=== PATIENT | female | born 1940 | race Caucasian/White ===

== ENCOUNTER 2019-05-01 09:48 | Inpatient (IN) | payer MEDICARE, MEDICAID ==
[~2019-05-01] VITALS: Ht 170.2 cm; Wt 54.4 kg
[2019-05-01] VITALS (47 sets, daily range): BP systolic 2–120; BP diastolic 30–96
--- NOTE | 2019-05-01 09:48 | NUR ---
ED Nurse Note: pt arrives with audible rhonchi and dyspnea with tachypnea noted with aloc from [facility] via lafd. pt is full code at this time. pt nonresponsive to tactile stimuli. at bs resp therapist at bedside. pt with decreased bibasilar with rhonchi. pt suctioned by RT with copious sputum noted. pt arrives with kwon in place and gt in place.
--- NOTE | 2019-05-01 10:00 | NUR ---
RESPIRATORY NOTE: Override medications Albuterol 5mg and Atro 500mcg Q15. Daysi DUNN notified. Addendum: 05/01/19 at 1057 by ROYAL DEWEY RT Per Dr. Larios's orders Q15 tx
[2019-05-01] MEDS ORDERED: Piperacillin/Tazobactam 3.375 GM in NS 110 ML IVPB ONE (10:15)
[2019-05-01] MEDS ORDERED: Vancomycin 1 GM in NS 275 ML IV ONE (10:15)
--- NOTE | 2019-05-01 10:19 | NUR ---
ED Nurse Note: md aware of rectal temp. resp obtaining ABG
--- NOTE | 2019-05-01 10:21 | NUR ---
ED Nurse Note: pt prepared for ett placement by .
[2019-05-01 10:24] LABS: APPEARANCE,URINE CLOUDY; BILIRUBIN, URINE NEGATIVE (NEGATIVE); GLUCOSE, URINE (UA) NEGATIVE (NEGATIVE); HEMATOCRIT 36.4 % (37.0-47.0); HEMOGLOBIN 11.5 G/DL (12.0-16.0); KETONES,URINE NEGATIVE (NEGATIVE); LEUKOCYTE ESTERASE ,URINE 3+ (NEGATIVE); MEAN CORPUSCULAR VOLUME 92 FL (80-99); NITRITE,URINE NEGATIVE (NEGATIVE); PH,URINE 5 (4.5-8.0); PLATELET COUNT 164 K/UL (150-450); PROTEIN,URINE 3+ (NEGATIVE); RED BLOOD COUNT 3.95 M/UL (4.20-5.40); RED CELL DISTRIBUTION WIDTH 16.3 % (11.6-14.8); UROBILINOGEN,URINE 1 MG/DL (0.0-1.0)
[2019-05-01 10:26] LABS: COLOR,URINE YELLOW
--- NOTE | 2019-05-01 10:35 | NUR ---
ED Nurse Note: pt with meds given rocuronium 50mg ivp and etomidate 20mg ivp given by leigh daugherty rn. dr quiles attempting ett with resp present
[2019-05-01 10:37] LABS: ANION GAP 6 mmol/L (5-15); BLOOD UREA NITROGEN 82 mg/dL (7-18); CALCIUM 12.3 MG/DL (8.5-10.1); CARBON DIOXIDE 36 MMOL/L (21-32); CHLORIDE 116 MMOL/L (98-107); POTASSIUM 3.7 MMOL/L (3.5-5.1); SODIUM 158 MMOL/L (136-145)
--- NOTE | 2019-05-01 10:45 | NUR ---
ED Nurse Note: pt with successful ett placement by dr quiles. 7.5 at 22cm lipline rt. with vent settings ac 14 tv 450 5 peep. pt tolerates well. frequent vs initiated.
[2019-05-01 10:46] LABS: ALANINE AMINOTRANSFERASE 46 U/L (12-78); ALBUMIN 2.2 G/DL (3.4-5.0); ALBUMIN/GLOBULIN RATIO 0.6 (1.0-2.7); ALKALINE PHOSPHATASE 149 U/L (46-116); ASPARTATE AMINO TRANSFERASE 22 U/L (15-37); BILIRUBIN,TOTAL 0.9 MG/DL (0.2-1.0)
[2019-05-01] MEDS: Ipratropium 0.02% Inh Soln 2.5ml UD HHN SCH ×3 (10:58→11:06)
[2019-05-01] MEDS: Albuterol ud Inhalation HHN SCH ×3 (10:58→11:06)
[2019-05-01] MEDS ORDERED: Rocuronium Bromide 50mg/5ml Inj IV ONE (11:00)
[2019-05-01] MEDS ORDERED: VITAMIN C500 M1 GT (11:00)
[2019-05-01] MEDS ORDERED: ACETAMINOPHEN325 M1 GT (11:00)
[2019-05-01] MEDS ORDERED: PREDNISONE20 MG GT (11:00)
[2019-05-01] MEDS ORDERED: SENNA8.6 M2 GT (11:00)
[2019-05-01] MEDS ORDERED: ALBUTEROL2.5 MG/0.1 IH (11:00)
[2019-05-01] MEDS ORDERED: Etomidate 40mg/20ml Inj IV ONE (11:00)
[2019-05-01] MEDS ORDERED: FUROSEMIDE40 MG GT (11:00)
[2019-05-01] MEDS ORDERED: IPRATROPIU0.2 MG/1 M HHN (11:00)
[2019-05-01] MEDS ORDERED: Solu-MEDROL 125mg Inj IVP ONE (11:00)
[2019-05-01] MEDS ORDERED: GLUCAGON HCL1 MG IJ (11:00)
[2019-05-01] MEDS ORDERED: NOVOLIN R100 UNIT/1 SUBQ (11:00)
[2019-05-01] MEDS ORDERED: ZYPREXA5 MG GT (11:00)
[2019-05-01] MEDS ORDERED: Acetaminophen 650 MG SUPP RECTAL ONE ×2 (11:00)
[2019-05-01] MEDS ORDERED: RISPERDAL1 MG GT (11:00)
[2019-05-01] MEDS ORDERED: MULTI-DELYN237 ML GT (11:00)
--- NOTE | 2019-05-01 11:11 | Diagnostic Imaging Report ---
Indication: Intubation Comparison: None A single view chest radiograph was obtained. Findings: The endotracheal tube tip is a in the right mainstem bronchus and should be pulled back 3 cm. There is a evidence of left basilar volume loss and atelectasis which may be associated the position of the endotracheal tube. There is evidence of both airspace and reticular/interstitial densities within the lungs most likely on the basis of left heart failure. Correlate clinically. Aorta is mildly calcified. Bones are osteopenic. IMPRESSION: Right mainstem intubation. Suggest pulling the tube back about 3 cm. Atelectasis of the left lower lobe. Superimposed pneumonia or pleural effusion is not excluded. CHF suspected.
--- NOTE | 2019-05-01 11:14 | NUR ---
ED Nurse Note: resp therapist adjusting ett to 20 cm rt. lipline Addendum: 05/01/19 at 1302 by CHUNG ED Nurse Note: resp adjusting ett to rt. lipline 19cm
[2019-05-01] MEDS ORDERED: DOPAMINE 800mg/250ml 250 ML IV SCH (11:45)
--- NOTE | 2019-05-01 11:46 | NUR ---
ED Nurse Note: MD aware of bp, continued ivf infusion per md. pt remains tolerating vent well. repeat cxr done after ett adjustment.
--- NOTE | 2019-05-01 11:58 | NUR ---
ED Nurse Note: pharmacy customer care specialist aware of need for dopamine ivpb needed.
--- NOTE | 2019-05-01 12:05 | NUR ---
ED Nurse Note: dopamine gtt started via left upper arm PICC line as per protocol
--- NOTE | 2019-05-01 12:15 | NUR ---
ED Nurse Note: reflex lactic drawn and sent. pt tolerating dopamine well with improved bp
--- NOTE | 2019-05-01 12:16 | Diagnostic Imaging Report ---
Indication: Endotracheal tube readjustment Comparison: 10:55 A single view chest radiograph was obtained. Findings: Current study than 11:43 Endotracheal tube is 2 cm above the guille in good position. A left subclavian line is also present in good position of the tip projected over the SVC. Pulmonary edema again demonstrated. There is hazy opacity at the left lung base which is probably a pleural effusion. IMPRESSION: Endotracheal tube in good position. No significant change otherwise
--- NOTE | 2019-05-01 12:31 | NUR ---
ED Nurse Note: resp therapsit drawing abg.
[2019-05-01] MEDS ORDERED: Miralax 17gm pkt ORAL PRN (12:45)
[2019-05-01] MEDS ORDERED: Albuterol/Ipratropium 3ml neb HHN PRN (12:45)
[2019-05-01] MEDS ORDERED: Amikacin Rx to dose MISC PRN (12:45)
[2019-05-01] MEDS ORDERED: Morphine Sulfate 4mg/ml Inj (IV USE ONLY) IVP PRN (12:45)
--- NOTE | 2019-05-01 12:45 | NUR ---
ED Nurse Note: pt to remain on dopamine gtt and levophed held at this time as bp improved on dopamine per dr quiles.
--- NOTE | 2019-05-01 13:00 | NUR ---
ED Nurse Note: pt tolerates vent well and vs improved with dopamine gtt. awaiting icu placement
[2019-05-01 13:19] LABS: CREATINE KINASE 61 U/L (26-308)
--- NOTE | 2019-05-01 13:21 | Emergency Room Report ---
History of Present Illness General Chief Complaint: Dyspnea/Respdistress Source: Medical Record, EMS Present Illness Allergies: Coded Allergies: No Known Allergies (Unverified , 05/01/19) Patient History Past Medical History: HTN, COPD Past Surgical History: none Pertinent Family History: none Social History: Denies: smoking, alcohol use, drug use Social History Narrative Patient is from a [place] [facility]. Now: No Reviewed Nursing Documentation: PMH: Agreed; PSxH: Agreed Nursing Documentation-PMH Past Medical History: No History, Except For Hx Hypertension: Yes Hx COPD: Yes Review of Systems All Other Systems: limited - Poor mental status Physical Exam Vital Signs Date Time Temp Pulse Resp B/P (MAP) Pulse Ox O2 Delivery O2 Flow Rate FiO2 05/01/19 09:43 120 18 90/38 (55) 95 Non-Rebreather 15.0 05/01/19 10:00 100 05/01/19 10:17 104.2 Sp02 EP Interpretation: reviewed, normal General Appearance: severe distress, lethargic, thin, Chronically Ill Head: atraumatic Eyes: bilateral eye normal inspection ENT: normal ENT inspection, dry mucus membranes Neck: normal inspection, full range of motion, supple, no bony tend Respiratory: respiratory distress, decreased breath sounds, accessory muscle use, wheezing, expiration, inspiration Cardiovascular #1: no edema, tachycardia Gastrointestinal: normal inspection, soft, no guarding, no hernia Genitourinary: ext genitalia/vag normal Musculoskeletal: normal inspection, back normal Neurologic: other - Decreased responsiveness. Limited exam. Acute distress. Psychiatric: anxious - Respiratory distress Skin: no rash Procedures Critical Care Time Critical Care Time Patient had a critical medical condition which untreated could potentially result in life or limb threatening injury. Total critical care time excluding procedures was approximately 65 minutes. Intubation Intubation : Consent: Emergent Intubation Method: orotracheal Tube Size (cm): 7.5 Medications: Etomidate, Rocuronium Breath Sounds after Intubation: equal Intubation Complications: no complications Post Intubation Xray: Yes Progress/Xray Impression: Chest x-ray shows right main stem intubation. Tube was pulled back 4 cm. Attempts: Other - two Patient Tolerated: Well Complications: None Progress This was a very difficult intubation. Initial intubation showed the patient was very anterior in the intubation. I was able to place a tube into patient's oropharynx but uncertain if it was actually in the trachea. Therefore it was removed and then a bougie was used for placement. And this was confirmed with glide scope afterwards. Chest x-ray initially showed that the tube was in the right mainstem. Therefore the tube was pulled back 4 cm and repeat chest x-ray shows tube in good position. There is no complications associated procedure. No evidence of hemothorax or pneumothorax. Medical Decision Making Diagnostic Impression: Primary Impression: Respiratory failure Additional Impressions: Pulmonary congestion Septic shock Pneumonia Hypernatremia Dehydration NSTEMI (non-ST elevated myocardial infarction) Acute kidney injury ER Course Patient presents emergency department today with acute respiratory failure. Patient was started on respiratory treatments immediately. Differential considerations include pneumonia, CHF, pneumothorax just name few. Other considerations include electrolyte abnormality sepsis and septic shock. Given the severity of the patient's presentation I felt this is a highly complex patient. This patient required extensive workup. Patient was given nebulizer treatments without improvement therefore patient was intubated. She will improve her respiratory status. Patient was started on broad-spectrum antibiotics after blood cultures were obtained. Lactic acid level was elevated. Therefore patient was started on 30 cc/kg fluid bolus. Despite receiving the fluid bolus patient's blood pressure remained low. Therefore patient was given dopamine for vasopressors through the PICC line. Patient was admitted to the ICU for further management. Repeat lactic acid level was obtained. Focused sepsis exam was performed at 1300. Patient had good perfusion vital signs was improving. Regular rhythm. Tachycardic rate. Crackles noted at the bases. Of the lung.. There is good peripheral pulses. Good capillary refill. Skin exam was cold. Case was discussed with Dr. Cosme Chong for admission. Labs Test 05/01/19 10:15 05/01/19 12:35 White Blood Count 8.0 K/UL (4.8-10.8) Red Blood Count 3.95 M/UL (4.20-5.40) Hemoglobin 11.5 G/DL (12.0-16.0) Hematocrit 36.4 % (37.0-47.0) Mean Corpuscular Volume 92 FL (80-99) Mean Corpuscular Hemoglobin 29.1 PG (27.0-31.0) Mean Corpuscular Hemoglobin Concent 31.7 G/DL (32.0-36.0) Red Cell Distribution Width 16.3 % (11.6-14.8) Platelet Count 164 K/UL (150-450) Mean Platelet Volume 7.8 FL (6.5-10.1) Neutrophils (%) (Auto) % (45.0-75.0) Lymphocytes (%) (Auto) % (20.0-45.0) Monocytes (%) (Auto) % (1.0-10.0) Eosinophils (%) (Auto) % (0.0-3.0) Basophils (%) (Auto) % (0.0-2.0) Differential Total Cells Counted 100 Neutrophils % (Manual) 84 % (45-75) Lymphocytes % (Manual) 9 % (20-45) Monocytes % (Manual) 7 % (1-10) Eosinophils % (Manual) 0 % (0-3) Basophils % (Manual) 0 % (0-2) Band Neutrophils 0 % (0-8) Platelet Estimate Adequate Platelet Morphology Normal Urine Color Yellow Urine Appearance Cloudy Urine pH 5 (4.5-8.0) Urine Specific [place] 1.010 (1.005-1.035) Urine Protein 3+ (NEGATIVE) Urine Glucose (UA) Negative (NEGATIVE) Urine Ketones Negative (NEGATIVE) Urine Blood 3+ (NEGATIVE) Urine Nitrite Negative (NEGATIVE) Urine Bilirubin Negative (NEGATIVE) Urine Urobilinogen 1 MG/DL (0.0-1.0) Urine Leukocyte Esterase 3+ (NEGATIVE) Urine RBC 5-10 /HPF (0 - 2) Urine WBC 10-15 /HPF (0 - 2) Urine Squamous Epithelial Cells Few /LPF (NONE/OCC) Urine Amorphous Sediment Few /LPF (NONE) Urine Bacteria Many /HPF (NONE) Urine Yeast Many /HPF (NONE) Sodium Level 158 MMOL/L (136-145) Potassium Level 3.7 MMOL/L (3.5-5.1) Chloride Level 116 MMOL/L (98-107) Carbon Dioxide Level 36 MMOL/L (21-32) Anion Gap 6 mmol/L (5-15) Blood Urea Nitrogen 82 mg/dL (7-18) Creatinine 2.0 MG/DL (0.55-1.30) Estimat Glomerular Filtration Rate mL/min (>60) Glucose Level 117 MG/DL (74-106) Lactic Acid Level 3.40 mmol/L (0.4-2.0) Calcium Level 12.3 MG/DL (8.5-10.1) Total Bilirubin 0.9 MG/DL (0.2-1.0) Aspartate Amino Transf (AST/SGOT) 22 U/L (15-37) Alanine Aminotransferase (ALT/SGPT) 46 U/L (12-78) Alkaline Phosphatase 149 U/L (46-116) Troponin I 0.189 ng/mL (0.000-0.056) Pro-B-Type Natriuretic Peptide 2130 pg/mL (0-125) Total Protein 6.1 G/DL (6.4-8.2) Albumin 2.2 G/DL (3.4-5.0) Globulin 3.9 g/dL Albumin/Globulin Ratio 0.6 (1.0-2.7) Lipase 69 U/L (73-393) Arterial Blood pH 7.391 (7.350-7.450) Arterial Blood Partial Pressure CO2 51.4 mmHg (35.0-45.0) Arterial Blood Partial Pressure O2 156.6 mmHg (75.0-100.0) Arterial Blood HCO3 30.5 mmol/L (22.0-26.0) Arterial Blood Oxygen Saturation 98.6 % (95-100) Arterial Blood Base Excess 4.8 (-2-2) Silas Test Positive Chest X-Ray Diagnostic Results Chest X-Ray Diagnostic Results #1: Chest X-Ray Ordered: Yes # of Views/Limited/Complete: 1 View Indication: Shortness of Breath EP Interpretation: No Impression: Other - ET tube was in the right mainstem. Evidence of infiltrates and pneumonia. Chest X-Ray Diagnostic Results #2: Chest X-Ray Ordered: Yes # of Views/Limited/Complete: 1 View Indication: Shortness of Breath EP Interpretation: No Impression: Other - ET tube was in appropriate position. Left-sided PICC line. In appropriate position. Cardiomegaly. Pneumonia. Last Vital Signs Date Time Temp Pulse Resp B/P (MAP) Pulse Ox O2 Delivery O2 Flow Rate FiO2 05/01/19 13:00 109 19 97/36 100 Mechanical Ventilator 100 05/01/19 11:14 10.0 05/01/19 10:17 104.2 Status: improved Disposition: ADMITTED INPATIENT Condition: Critical Referrals: Cosme Chong DO (PCP) Henrique Larios MD May 01, 2019 13:21
--- NOTE | 2019-05-01 13:23 | Consultation ---
Consult Note Consult Note HPI: 78yo woman with PMH HTN and COPD brought in for SOB. Intubated in ED. HPI obtained from chart review but minimal records sent from retirement. Pt was in acute respiratory distress in the ED so pt was intubated. Pt is now on dopamine. ID consulted for antimicrobial recommendation. ROS: unable to obtain due to condition PMH: per HPI Meds: reviewed NKDA SHx: unable to obtain due to condition FHx: noncontributory PE: VS: Tmax 104.2 Gen: NAD. twitching HEENT: ETT CV: RRR Resp: RRR. coarse. no wheezes Abd: soft. nondistended. normoactive Bs+ Neuro: not awake Labs: No lekocytosis Assessment/Recommendation: Tmax 104.2 No leukocytosis Lactate 3.4>1.6 UTI? UA 10-15 WBC PNA? 03/31 CXR: P r/o bacteremia 03/31 BCx: P HTN COPD Schizophrenia DM G tube Parkinson CKD Protein calorie malnutrition Dementia Psychosis Gastritis Functional paraplegia Plan: Ertapenem, Amikacin, Vancomycin #1 steroid per pulm f/u bcx f/u ucx f/u sputum cx aspiration precaution ETT management skin care oral care Thank you for this consult. [facility] will continue to follow the patient with you. Jennifer Palm MD May 01, 2019 13:23
--- NOTE | 2019-05-01 13:47 | Consultation ---
History of Present Illness General Date patient seen: May 01, 2019 Chief Complaint: Dyspnea/Respdistress Present Illness HPI 78 year old female with hx of CVA, dementia, DM, COPD, Gtube feeding, bed bound , correction resident brought in to ER acute onset of respiratory failure. Pt was intubated in ER. She was started on levophed because of Hypotension and transferred to ICU. Pt is obtunded and can't give any history. Allergies: Coded Allergies: No Known Allergies (Unverified , 05/01/19) Medication History Scheduled Ascorbic Acid* (Vitamin C*), 500 MG GT DAILY, (Reported) Bisacodyl* (Dulcolax*), 10 MG ORAL DAILY, (Reported) Docusate Sodium* (Colace*), 100 MG ORAL DAILY, (Reported) Ferrous Sulfate* (Ferrous Sulfate*), 325 MG ORAL DAILY, (Reported) Furosemide* (Lasix*), 40 MG GT DAILY, (Reported) Insulin Regular, Human* (Novolin R*), 0 SUBQ .SLIDING SCALE, (Reported) Multivitamin Liquid* (Multi-Delyn*), 5 ML GT DAILY, (Reported) Olanzapine* (Zyprexa*), 5 MG GT DAILY, (Reported) Pantoprazole* (Protonix*), 40 MG ORAL DAILY, (Reported) Prednisone* (Prednisone*), 40 MG GT BID, (Reported) Risperidone* (Risperdal*), 1 MG GT DAILY, (Reported) Scheduled PRN Acetaminophen* (Acetaminophen 325MG Tablet*), 650 MG GT Q4H PRN for Pain Scale ( 3-5), (Reported) Clonidine Hcl* (Catapres*), 0.1 MG ORAL EVERY 6 HOURS PRN for For High Blood Pressure, (Reported) Ipratropium [place] 0.5MG/2.5ML (Ipratropium [place] 0.5MG/2.5ML), 0.5 MG HHN Q6H PRN for Shortness of Breath, (Reported) Miscellaneous Medications Albuterol Sulfate (Albuterol Sulfate), 2.5 MG IH, (Reported) Glucagon HCl (Glucagon HCl), 1 MG IJ, (Reported) Sennosides (Senna), 8.6 MG GT, (Reported) Patient History Healthcare decision maker Resuscitation status Advanced Directive on File Past Medical/Surgical History Past Medical/Surgical History: (1) Schizophrenia (2) Feeding by G-tube (3) Diabetes mellitus (4) Hypertension (5) COPD (chronic obstructive pulmonary disease) Review of Systems All Other Systems: negative except mentioned in HPI Physical Exam General Appearance: cachetic, thin Lines, tubes and drains: peripheral, central line, endotracheal tube, gtube HEENT: normocephalic, atraumatic Neck: non-tender, normal alignment Respiratory/Chest: rhonchi - left, rhonchi - right Breasts: no masses Cardiovascular/Chest: normal peripheral pulses, normal rate, no JVD Last 24 Hour Vital Signs Date Time Temp Pulse Resp B/P (MAP) Pulse Ox O2 Delivery O2 Flow Rate FiO2 05/01/19 13:30 96 19 2/33 100 Mechanical Ventilator 60 05/01/19 13:26 104 14 60 05/01/19 13:00 109 19 97/36 100 Mechanical Ventilator 100 05/01/19 12:45 102/36 05/01/19 12:25 119 19 106/79 100 Mechanical Ventilator 100 05/01/19 12:15 94/39 05/01/19 12:15 118 19 94/39 100 Mechanical Ventilator 100 05/01/19 12:10 111 19 88/34 100 Mechanical Ventilator 100 05/01/19 12:10 88/39 05/01/19 12:05 82/46 05/01/19 12:05 120 19 82/46 100 Mechanical Ventilator 100 05/01/19 11:45 120 19 81/42 100 Mechanical Ventilator 100 05/01/19 11:30 117 19 80/45 100 Mechanical Ventilator 100 05/01/19 11:15 121 14 83/35 100 Mechanical Ventilator 100 05/01/19 11:14 10.0 100 05/01/19 11:00 118 14 100 Mechanical Ventilator 100 05/01/19 11:00 126 14 88/31 100 Mechanical Ventilator 100 05/01/19 10:45 144 24 60/40 100 Mechanical Ventilator 100 05/01/19 10:42 118 14 100 05/01/19 10:35 124 21 101/45 95 Ambu-Bag 100 05/01/19 10:17 104.2 137 32 85/30 95 Simple Mask 10.0 05/01/19 10:00 118 24 86 Non-Rebreather 15.0 100 05/01/19 10:00 118 24 86 Non-Rebreather 15.0 100 05/01/19 09:50 155 39 98/38 93 Simple Mask 10.0 05/01/19 09:48 155 39 Non-Rebreather 15.0 05/01/19 09:43 120 18 90/38 (55) 95 Non-Rebreather 15.0 Laboratory Tests Test 05/01/19 10:15 05/01/19 12:15 05/01/19 12:35 White Blood Count 8.0 K/UL (4.8-10.8) Red Blood Count 3.95 M/UL (4.20-5.40) L Hemoglobin 11.5 G/DL (12.0-16.0) L Hematocrit 36.4 % (37.0-47.0) L Mean Corpuscular Volume 92 FL (80-99) Mean Corpuscular Hemoglobin 29.1 PG (27.0-31.0) Mean Corpuscular Hemoglobin Concent 31.7 G/DL (32.0-36.0) L Red Cell Distribution Width 16.3 % (11.6-14.8) H Platelet Count 164 K/UL (150-450) Mean Platelet Volume 7.8 FL (6.5-10.1) Neutrophils (%) (Auto) % (45.0-75.0) Lymphocytes (%) (Auto) % (20.0-45.0) Monocytes (%) (Auto) % (1.0-10.0) Eosinophils (%) (Auto) % (0.0-3.0) Basophils (%) (Auto) % (0.0-2.0) Differential Total Cells Counted 100 Neutrophils % (Manual) 84 % (45-75) H Lymphocytes % (Manual) 9 % (20-45) L Monocytes % (Manual) 7 % (1-10) Eosinophils % (Manual) 0 % (0-3) Basophils % (Manual) 0 % (0-2) Band Neutrophils 0 % (0-8) Platelet Estimate Adequate Platelet Morphology Normal Urine Color Yellow Urine Appearance Cloudy Urine pH 5 (4.5-8.0) Urine Specific [place] 1.010 (1.005-1.035) Urine Protein 3+ (NEGATIVE) H Urine Glucose (UA) Negative (NEGATIVE) Urine Ketones Negative (NEGATIVE) Urine Blood 3+ (NEGATIVE) H Urine Nitrite Negative (NEGATIVE) Urine Bilirubin Negative (NEGATIVE) Urine Urobilinogen 1 MG/DL (0.0-1.0) H Urine Leukocyte Esterase 3+ (NEGATIVE) H Urine RBC 5-10 /HPF (0 - 2) H Urine WBC 10-15 /HPF (0 - 2) H Urine Squamous Epithelial Cells Few /LPF (NONE/OCC) Urine Amorphous Sediment Few /LPF (NONE) H Urine Bacteria Many /HPF (NONE) H Urine Yeast Many /HPF (NONE) H Sodium Level 158 MMOL/L (136-145) H Potassium Level 3.7 MMOL/L (3.5-5.1) Chloride Level 116 MMOL/L (98-107) H Carbon Dioxide Level 36 MMOL/L (21-32) H Anion Gap 6 mmol/L (5-15) Blood Urea Nitrogen 82 mg/dL (7-18) H Creatinine 2.0 MG/DL (0.55-1.30) H Estimat Glomerular Filtration Rate mL/min (>60) Glucose Level 117 MG/DL (74-106) H Lactic Acid Level 3.40 mmol/L (0.4-2.0) H Pending Uric Acid 10.2 MG/DL (2.6-7.2) H Calcium Level 12.3 MG/DL (8.5-10.1) H Total Bilirubin 0.9 MG/DL (0.2-1.0) Aspartate Amino Transf (AST/SGOT) 22 U/L (15-37) Alanine Aminotransferase (ALT/SGPT) 46 U/L (12-78) Alkaline Phosphatase 149 U/L (46-116) H Total Creatine Kinase 61 U/L (26-308) Troponin I 0.189 ng/mL (0.000-0.056) Pro-B-Type Natriuretic Peptide 2130 pg/mL (0-125) H Total Protein 6.1 G/DL (6.4-8.2) L Albumin 2.2 G/DL (3.4-5.0) L Globulin 3.9 g/dL Albumin/Globulin Ratio 0.6 (1.0-2.7) L Lipase 69 U/L (73-393) L Arterial Blood pH 7.391 (7.350-7.450) Arterial Blood Partial Pressure CO2 51.4 mmHg (35.0-45.0) H Arterial Blood Partial Pressure O2 156.6 mmHg (75.0-100.0) H Arterial Blood HCO3 30.5 mmol/L (22.0-26.0) H Arterial Blood Oxygen Saturation 98.6 % (95-100) Arterial Blood Base Excess 4.8 (-2-2) H Silas Test Positive Height (Feet): 5 Height (Inches): 7.00 Weight (Pounds): 170 Medications Current Medications Medications (Trade) Dose Ordered Sig/Vane Route PRN Reason Start Time Stop Time Status Last Admin Dose Admin Acetaminophen (Tylenol) 650 mg Q4H PRN ORAL fever 05/01/19 12:45 05/31/19 12:44 Albuterol/ Ipratropium (Albuterol/ Ipratropium) 3 ml Q4H PRN HHN Shortness of Breath 05/01/19 12:45 05/06/19 12:44 Amikacin Protocol (Amikacin pharmacy to dose) 1 ea DAILY PRN MISC . 05/01/19 12:45 05/31/19 12:44 Amikacin Sulfate 500 mg/Sodium Chloride 112 ml @ 112 mls/hr Q24H IV 05/01/19 18:00 05/08/19 17:59 Dopamine HCl/ Dextrose 250 ml @ 0 mls/hr Q24H IV 05/01/19 11:45 05/06/19 11:44 05/01/19 12:05 Ertapenem 0.5 gm/ Sodium Chloride 55 ml @ 110 mls/hr Q24H IV 05/01/19 21:00 05/06/19 20:59 Heparin Sodium (Porcine) (Heparin 5000 units/ml) 5,000 units EVERY 12 HOURS SUBQ 05/01/19 21:00 05/31/19 20:59 Lorazepam (Ativan 2mg/ml 1ml) 2 mg Q2H PRN IV For Anxiety 05/01/19 12:45 05/08/19 12:44 Morphine Sulfate (Morphine Sulfate) 4 mg Q4H PRN IVP Severe Pain (Pain Scale 7-10) 05/01/19 12:45 05/08/19 12:44 Norepinephrine Bitartrate 4 mg/ Dextrose 254 ml @ 0 mls/hr Q24H IV 05/01/19 12:45 05/31/19 12:44 Ondansetron HCl (Zofran) 4 mg Q6H PRN IVP Nausea & Vomiting 05/01/19 12:45 05/31/19 12:44 Pantoprazole (Protonix) 40 mg DAILY IV 05/02/19 09:00 06/01/19 08:59 Polyethylene Glycol (Miralax) 17 gm DAILYPRN PRN ORAL Constipation 05/01/19 12:45 05/31/19 12:44 Sodium Chloride 1,000 ml @ 100 mls/hr Q10H IVLG 05/01/19 15:00 05/31/19 14:59 Vancomycin HCl (Vanco rx to dose) 1 ea DAILY PRN MISC . 05/01/19 12:45 05/31/19 12:44 Vancomycin HCl 500 mg/Dextrose 110 ml @ 110 mls/hr ONCE IVPB 05/01/19 16:00 05/01/19 18:00 Assessment/Plan Problem List: (1) Acute respiratory failure ICD Codes: J96.00 - Acute respiratory failure, unspecified whether with hypoxia or hypercapnia SNOMED: 14834004 (2) Septic shock ICD Codes: A41.9 - Sepsis, unspecified organism; R65.21 - Severe sepsis with septic shock SNOMED: 55381833, 0312205 (3) COPD (chronic obstructive pulmonary disease) ICD Codes: J44.9 - Chronic obstructive pulmonary disease, unspecified SNOMED: 98811518 (4) Hypertension ICD Codes: I10 - Essential (primary) hypertension SNOMED: 43042105 (5) Diabetes mellitus ICD Codes: E11.9 - Type 2 diabetes mellitus without complications SNOMED: 45230548 (6) Feeding by G-tube ICD Codes: Z93.1 - Gastrostomy status SNOMED: 867975230, 656439982, 602433956 (7) Schizophrenia ICD Codes: F20.9 - Schizophrenia, unspecified SNOMED: 90550540 Assessment/Plan: iv fluids iv abx duron cultures echocardiogram respiratory treatment titrate vent setting titrate fio2 to sat of 92T Dopamin to support BP check electrolytes daily dvtr prophylaxis H2 blockers Morphin and Benzos prn to keep pt comfortable. Yancy Lai MD May 01, 2019 13:47
--- NOTE | 2019-05-01 13:59 | NUR ---
ED Nurse Note: resp aware pt ready for transport to icu with rn and acls protocol.
--- NOTE | 2019-05-01 14:20 | NUR ---
NURSE NOTES: Report received from MONA Tavarez. Pt arrived in the unit via gurney. No belongings noted. Pt opens eyes spontaneously. Non-verbal and does not follow commands. Sinus tachy 120's on electronic device monitor. Orally intubated. ETT 7.5/19cm at right lip line. On AC 16, TV 500, FiO2 60%, P 5. O2 sat 98-100%. No respiratory distress noted. G-tube in place and kept NPO as per order. Wound care done and picture uploaded as per order. Pt came with left PICC line and kwon from retirement. IV to left FA G20 and COURTNEY PICC patent and asymptomatic. Pt came with Dopa drip at 4mcg/kg/min. Admission orders from Dr Lai already in the system. Will proceed the orders. Bed in lowest position. Side rails up x3. Will resume plan of care.
--- NOTE | 2019-05-01 14:43 | Consultation ---
Consult Note Consult Note asked to eval at the request of dr Chong for renal failure, High Calcium , High Na Chief Complaint: Dyspnea/Respdistress Past Medical History: HTN, COPD Past Medical History: No History, Except For Hx Hypertension: Yes Hx COPD: Yes examined data reviewed . Assessment/Plan Acute renal failure Dehydration / HyperNatremia / HyperCalcemia Septic Shock Respiratory failure / COPD NSTEMI DM PEG Schizophrenia Anemia IV fluid monitor renal parameters urine studies anemia au avoid Nephrotoxics Fox Ho MD May 01, 2019 14:43
--- NOTE | 2019-05-01 15:00 | NUR ---
NURSE NOTES: Special mattress ordered as per order. Good oral care done. Turned and repositioned pt. HR still elevated 120's. Notified Dr Lai regarding HR and BP. Will discontinue Dopamine and start Levophed as per order and monitor HR.
[2019-05-01] MEDS: D5 1/2NS 1,000 ML IV SCH ×2 (15:44→22:30)
[2019-05-01] MEDS ORDERED: Vancomycin 500mg/D5W 100ml IVPB SCH ×2 (16:00)
--- NOTE | 2019-05-01 16:00 | NUR ---
NURSE NOTES: Renal US and 2Decho does at bedside.
--- NOTE | 2019-05-01 16:33 | Diagnostic Imaging Report ---
Indication:Elevated Bun and Creatinine. Technique: Grayscale and duplex Doppler imaging of the kidneys performed. Comparison: None Findings: Cortical echogenicity may be slightly increased as the renal pyramids appear hypoechoic. There is a cyst in the right kidney measuring about 1 cm.. The right kidney measures 11 cm cm. in length. The left kidney measures 10 cm cm. in length. There is a small nonobstructive stone in the left kidney. The IVC is patent. Urinary bladder is unremarkable. IMPRESSION: Suspected medical renal disease. Nonobstructive stone in the left kidney. Right renal cyst
[2019-05-01] MEDS ORDERED: COLACE100 MG GT (17:40)
[2019-05-01] MEDS ORDERED: BISACODYL5 MG GT (17:40)
[2019-05-01] MEDS ORDERED: FERROUS SULFAT325 MG GT (17:40)
[2019-05-01] MEDS ORDERED: PROTONIX40 MG ORAL (17:40)
[2019-05-01] MEDS ORDERED: CATAPRES0.1 MG ORAL (17:40)
--- NOTE | 2019-05-01 18:00 | NUR ---
NURSE NOTES: Hilario from [facility] removed and changed to a new one with 16 Fr. Pt tolerated well. Left UA PICC line dressing changed as well.
[2019-05-01] MEDS: Amikacin 500 MG in NS 110 ML IV SCH (18:04)
--- NOTE | 2019-05-01 19:30 | NUR ---
HAND-OFF: Report given to Angie/MONA Doyle.
[2019-05-01] MEDS: Dyna-Hex 2% Top Sol 2oz TOPIC SCH (19:48)
--- NOTE | 2019-05-01 19:56 | Cardiology Progress Note ---
Assessment/Plan Assessment/Plan full irma dictaedd deman related trop tachy treat underlying infection will follow anuoer s [id number] Objective Last 24 Hour Vital Signs Date Time Temp Pulse Resp B/P (MAP) Pulse Ox O2 Delivery O2 Flow Rate FiO2 05/01/19 19:15 93 23 96/67 (77) 100 05/01/19 19:00 99.0 93 23 100/63 (75) 100 05/01/19 19:00 101/64 05/01/19 18:49 90 16 40 05/01/19 18:30 93 23 96/67 (77) 100 05/01/19 18:00 103/46 05/01/19 18:00 84 19 103/46 (65) 100 05/01/19 17:45 85 11 105/52 (69) 100 05/01/19 17:30 86 13 112/48 (69) 100 05/01/19 17:21 88 14 60 05/01/19 17:15 86 12 102/48 (66) 100 05/01/19 17:00 90 14 95/47 (63) 100 05/01/19 17:00 100/46 05/01/19 16:30 90 14 95/47 (63) 100 05/01/19 16:27 92 05/01/19 16:00 98.7 108 17 100/52 (68) 99 05/01/19 16:00 60 05/01/19 16:00 100/52 05/01/19 15:45 105/50 05/01/19 15:30 112 15 60 05/01/19 15:30 114 24 120/50 (73) 98 05/01/19 15:27 Mechanical Ventilator 05/01/19 15:00 117 21 97/45 (62) 94 05/01/19 14:27 123 05/01/19 14:20 99.2 120 19 104/45 (64) 94 05/01/19 14:20 60 05/01/19 13:58 111 19 95/36 97 Mechanical Ventilator 60 05/01/19 13:54 99.1 111 19 95/36 97 Mechanical Ventilator 60 05/01/19 13:52 99.1 101 19 95/36 97 Mechanical Ventilator 60 05/01/19 13:30 96 19 102/33 100 Mechanical Ventilator 60 05/01/19 13:26 104 14 60 05/01/19 13:00 109 19 97/36 100 Mechanical Ventilator 100 05/01/19 12:45 102/36 05/01/19 12:25 119 19 106/79 100 Mechanical Ventilator 100 05/01/19 12:15 94/39 05/01/19 12:15 118 19 94/39 100 Mechanical Ventilator 100 05/01/19 12:10 111 19 88/34 100 Mechanical Ventilator 100 05/01/19 12:10 88/39 05/01/19 12:05 82/46 05/01/19 12:05 120 19 82/46 100 Mechanical Ventilator 100 05/01/19 11:45 120 19 81/42 100 Mechanical Ventilator 100 05/01/19 11:30 117 19 80/45 100 Mechanical Ventilator 100 05/01/19 11:15 121 14 83/35 100 Mechanical Ventilator 100 05/01/19 11:14 60 05/01/19 11:00 118 14 100 Mechanical Ventilator 100 05/01/19 11:00 126 14 88/31 100 Mechanical Ventilator 100 05/01/19 10:45 144 24 60/40 100 Mechanical Ventilator 100 05/01/19 10:42 118 14 100 05/01/19 10:35 124 21 101/45 95 Ambu-Bag 100 05/01/19 10:17 104.2 137 32 85/30 95 Simple Mask 10.0 05/01/19 10:00 118 24 86 Non-Rebreather 15.0 100 05/01/19 10:00 118 24 86 Non-Rebreather 15.0 100 05/01/19 09:50 155 39 98/38 93 Simple Mask 10.0 05/01/19 09:48 155 39 Non-Rebreather 15.0 05/01/19 09:43 120 18 90/38 (55) 95 Non-Rebreather 15.0 Laboratory Tests Test 05/01/19 10:15 05/01/19 12:15 05/01/19 12:35 White Blood Count 8.0 K/UL (4.8-10.8) Red Blood Count 3.95 M/UL (4.20-5.40) L Hemoglobin 11.5 G/DL (12.0-16.0) L Hematocrit 36.4 % (37.0-47.0) L Mean Corpuscular Volume 92 FL (80-99) Mean Corpuscular Hemoglobin 29.1 PG (27.0-31.0) Mean Corpuscular Hemoglobin Concent 31.7 G/DL (32.0-36.0) L Red Cell Distribution Width 16.3 % (11.6-14.8) H Platelet Count 164 K/UL (150-450) Mean Platelet Volume 7.8 FL (6.5-10.1) Neutrophils (%) (Auto) % (45.0-75.0) Lymphocytes (%) (Auto) % (20.0-45.0) Monocytes (%) (Auto) % (1.0-10.0) Eosinophils (%) (Auto) % (0.0-3.0) Basophils (%) (Auto) % (0.0-2.0) Differential Total Cells Counted 100 Neutrophils % (Manual) 84 % (45-75) H Lymphocytes % (Manual) 9 % (20-45) L Monocytes % (Manual) 7 % (1-10) Eosinophils % (Manual) 0 % (0-3) Basophils % (Manual) 0 % (0-2) Band Neutrophils 0 % (0-8) Platelet Estimate Adequate Platelet Morphology Normal Urine Color Yellow Urine Appearance Cloudy Urine pH 5 (4.5-8.0) Urine Specific [place] 1.010 (1.005-1.035) Urine Protein 3+ (NEGATIVE) H Urine Glucose (UA) Negative (NEGATIVE) Urine Ketones Negative (NEGATIVE) Urine Blood 3+ (NEGATIVE) H Urine Nitrite Negative (NEGATIVE) Urine Bilirubin Negative (NEGATIVE) Urine Urobilinogen 1 MG/DL (0.0-1.0) H Urine Leukocyte Esterase 3+ (NEGATIVE) H Urine RBC 5-10 /HPF (0 - 2) H Urine WBC 10-15 /HPF (0 - 2) H Urine Squamous Epithelial Cells Few /LPF (NONE/OCC) Urine Amorphous Sediment Few /LPF (NONE) H Urine Bacteria Many /HPF (NONE) H Urine Yeast Many /HPF (NONE) H Urine Eosinophils None (NONE SEEN) Urine Random Sodium 21 mmol/L (20-110) Sodium Level 158 MMOL/L (136-145) H Potassium Level 3.7 MMOL/L (3.5-5.1) Chloride Level 116 MMOL/L (98-107) H Carbon Dioxide Level 36 MMOL/L (21-32) H Anion Gap 6 mmol/L (5-15) Blood Urea Nitrogen 82 mg/dL (7-18) H Creatinine 2.0 MG/DL (0.55-1.30) H Estimat Glomerular Filtration Rate mL/min (>60) Glucose Level 117 MG/DL (74-106) H Lactic Acid Level 3.40 mmol/L (0.4-2.0) H 1.60 mmol/L (0.66-2.22) Uric Acid 10.2 MG/DL (2.6-7.2) H Calcium Level 12.3 MG/DL (8.5-10.1) H Total Bilirubin 0.9 MG/DL (0.2-1.0) Aspartate Amino Transf (AST/SGOT) 22 U/L (15-37) Alanine Aminotransferase (ALT/SGPT) 46 U/L (12-78) Alkaline Phosphatase 149 U/L (46-116) H Total Creatine Kinase 61 U/L (26-308) Troponin I 0.189 ng/mL (0.000-0.056) Pro-B-Type Natriuretic Peptide 2130 pg/mL (0-125) H Total Protein 6.1 G/DL (6.4-8.2) L Albumin 2.2 G/DL (3.4-5.0) L Globulin 3.9 g/dL Albumin/Globulin Ratio 0.6 (1.0-2.7) L Lipase 69 U/L (73-393) L Arterial Blood pH 7.391 (7.350-7.450) Arterial Blood Partial Pressure CO2 51.4 mmHg (35.0-45.0) H Arterial Blood Partial Pressure O2 156.6 mmHg (75.0-100.0) H Arterial Blood HCO3 30.5 mmol/L (22.0-26.0) H Arterial Blood Oxygen Saturation 98.6 % (95-100) Arterial Blood Base Excess 4.8 (-2-2) H Silas Test Positive Microbiology Date/Time Source Procedure Growth Status 05/01/19 10:15 Rectal Mucosa Received Martin Sarmiento MD May 01, 2019 19:56
--- NOTE | 2019-05-01 20:00 | NUR ---
NURSE NOTES:pt report recieved from abigail werner pt obtunded responsive to deep pain orally intubated o2 sot 99-100 o/o no acute resp distress hr 72-87 sr with pacs on levo drip at 4mcg/min with bp 107/5o reposition and suction urinary output good dr grant in and seen pt
[2019-05-01] MEDS: Pantoprazole Inj IV SCH (21:15)
[2019-05-01] MEDS: Ertapenem 0.5 GM in NS 55 ML IV SCH (21:15)
[2019-05-01] MEDS: Heparin 5000 units/ml inj SUBQ SCH (21:17)
--- NOTE | 2019-05-01 22:00 | NUR ---
NURSE NOTES: levo drip at 2mcg/min with bp 112 /49 reposition and suction
[2019-05-01] MEDS ORDERED: Vancomycin 1 GM in D5W 275 ML IV SCH (23:45)
[2019-05-02] VITALS (57 sets, daily range): BP systolic 90–133; BP diastolic 35–103
--- NOTE | 2019-05-02 | NUR ---
NURSE NOTES: open eyes to touch moving upper extremities but weak reposition and suction
--- NOTE | 2019-05-02 02:00 | NUR ---
NURSE NOTES: pt awake trying to devices nan complaint jaime soft wrist restraints order and applied reposition and suction
--- NOTE | 2019-05-02 04:00 | NUR ---
NURSE NOTES: complete bed bath oral back and kwon care done levo drip 1mcg/min with 105/55 reposition and suction
[2019-05-02] MEDS: D5 1/2NS 1,000 ML IV SCH (05:07)
[2019-05-02 05:28] LABS: HEMATOCRIT 24.8 % (37.0-47.0); HEMOGLOBIN 7.8 G/DL (12.0-16.0); MEAN CORPUSCULAR VOLUME 94 FL (80-99); PLATELET COUNT 102 K/UL (150-450); RED BLOOD COUNT 2.63 M/UL (4.20-5.40); RED CELL DISTRIBUTION WIDTH 16.4 % (11.6-14.8)
[2019-05-02 06:03] LABS: AMMONIA 21 umol/L (11-32)
[2019-05-02 06:06] LABS: ALANINE AMINOTRANSFERASE 30 U/L (12-78); ALBUMIN 1.5 G/DL (3.4-5.0); ALBUMIN/GLOBULIN RATIO 0.5 (1.0-2.7); ALKALINE PHOSPHATASE 106 U/L (46-116); ANION GAP 12 mmol/L (5-15); ASPARTATE AMINO TRANSFERASE 13 U/L (15-37); BILIRUBIN,TOTAL 0.6 MG/DL (0.2-1.0); BLOOD UREA NITROGEN 60 mg/dL (7-18); CALCIUM 10.7 MG/DL (8.5-10.1); CARBON DIOXIDE 22 MMOL/L (21-32); CHLORIDE 114 MMOL/L (98-107); CREATININE 1.8 MG/DL (0.55-1.30); POTASSIUM 2.9 MMOL/L (3.5-5.1); SODIUM 148 MMOL/L (136-145)
[2019-05-02 06:08] LABS: % IRON SATURATION 9 % (15-50); IRON 9 ug/dL (50-175); TOTAL IRON BINDING CAPACITY 97 ug/dL (250-450)
[2019-05-02 06:12] LABS: CREATINE KINASE 29 U/L (26-308); GAMMA GLUTAMYL TRANSPEPTIDASE 63 U/L (5-85)
[2019-05-02 06:20] LABS: CHOLESTEROL 96 MG/DL (< 200); FERRITIN 1603 NG/ML (8-388); HDL CHOLESTEROL 22 MG/DL (40-60); PHOSPHORUS 2.1 MG/DL (2.5-4.9); TRIGLYCERIDES 99 MG/DL (30-150)
--- NOTE | 2019-05-02 06:20 | NUR ---
NURSE NOTES: Glucose 503, Hgb 7.8, Hct 24.8. Left a message for Dr. Lai, awaiting for return call.
--- NOTE | 2019-05-02 06:25 | NUR ---
NURSE NOTES: Troponin 0.143, MD not informed due to result is trending down.
--- NOTE | 2019-05-02 06:43 | NUR ---
NURSE NOTES: Patient was seen and examined by Dr. Coombs. Informed him of Glucose of 503, Hgb 7.8, Hct 24.8. As per him to start insulin average scale Q6 and give 1 unit PRBC typed and crossmatched. Blood transfusion consent signed by witnessed by 2 RNs. Addendum: 05/02/19 at 0708 by SIXTO PATTERSON RN NURSE NOTES: Confirmed with Dr. Coombs, as per him he's part of the patient's case.
--- NOTE | 2019-05-02 06:45 | NUR ---
NURSE NOTES: Received return call from Dr. Lai, updated him of Dr. Coombs's s orders. As per him no new orders at this time.
--- NOTE | 2019-05-02 06:45 | Consultation ---
DATE OF CONSULTATION: 05/01/2019 CARDIOLOGY CONSULTATION CONSULTING PHYSICIAN: Martin Sarmiento M.D. REFERRING PHYSICIAN: Yancy Lai M.D. and Cosme Chong D.O. REASON FOR REFERRAL: Respiratory failure and hypotension. HISTORY OF PRESENT ILLNESS: This is an elderly female, who is not able to provide any meaningful history whatsoever. The patient's information is obtained from the review of the patient's chart and the emergency room physician. The patient was brought to the emergency room because of respiratory distress and she was started on breathing treatments and subsequently was intubated in the emergency room. No records really from available from the convalescent facility. She is on a ventilator at the present time. She is on for her blood pressure support. According to the nursing staff, she has thick yellow sputum with copious amounts of sputum being by the patient. PAST MEDICAL HISTORY: According to the convalescent facility, history of schizoaffective disorder, dysphagia, generalized muscle weakness, lack of coordination, heart failure, anemia, kidney failure, dementia, hypertension, malnutrition, diabetes mellitus, encephalopathy, chronic obstructive pulmonary disease, gastroesophageal reflux disease, functional quadriplegia, pneumonia, gastrostomy tube failure, cataracts and following depression and anxiety and insomnia. ALLERGIES: She is not reported to be allergic to any medications. SOCIAL HISTORY: She lives in a convalescent facility. REVIEW OF SYSTEMS: Unable to obtain. PHYSICAL EXAMINATION: GENERAL: Shows to be an elderly female, in no respiratory distress on a mechanical ventilator, on pressors. NECK: Supple. No jugular venous distention. LUNGS: Anteriorly clear to auscultation. CARDIAC: Regular rhythm. Not tachycardic. Not bradycardic. No heaves or thrills. ABDOMEN: Soft. G-tube is present. There is no redness around the G-tube. EXTREMITIES: There is no edema. NEUROLOGICAL: She is noncommunicative. LABORATORY AND DIAGNOSTIC DATA: White count 18, hemoglobin 11.5, and platelet count 164. The pH is 7.39, pCO2 51, pO2 156, and bicarbonate of 30. Sodium is 158, potassium 3.7, chloride 116, bicarb 36, BUN of 82, creatinine 2.0, glucose of 117, lactic acid 3.4 and subsequently 1.6, calcium of 12.3, and troponin 0.189. ProBNP of 2130. Lipase is 69. Urinalysis shows 10 to 15 wbc's, 5 to 10 rbc's. is 21. Imaging, she had a chest x-ray performed in the emergency room, showed right mainstem bronchus intubation, atelectasis of the left lower lobe, subsequently on . The chest x-ray showed good position. Subclavian line, SVC, pulmonary edema, demonstrated hazy opacities in the left lung and telemetry showed sinus rhythm. The patient's electrocardiogram on presentation shows sinus tachycardia, rate of 126, some nonspecific T-wave changes being documented. ASSESSMENT AND PLAN: 1. Acute febrile illness, sepsis. 2. Hypotension. 3. Possible pneumonia. 4. Urinary tract infection. 5. Hyponatremia. 6. Renal insufficiency and failure. 7. Dementia. 8. G-tube placement. This patient was seen in cardiac consultation. The patient is quite hypernatremic, requires free water. I doubt that she is actually in congestive heart failure, probably not in the setting of acute renal failure and the cardiac enzymes also being abnormal may not be actually coronary syndrome and may be most likely related to demand. Continue gentle hydration. An echocardiogram will be ordered for evaluation of LV systolic function if not already performed. The vasopressors for hypotension will be continued. Serial enzymes and EKG will be also ordered. Preliminary echocardiogram shows a technically difficult study with ejection fraction of 65%, normal left ventricular systolic function and wall motion, no significant valvular regurgitation. This will be followed up tomorrow. For now, continue on treatment of underlying sepsis, possible pneumonia, urinary tract . Martin Sarmiento M.D. DR: Bay JOB#: [id number] CC:
--- NOTE | 2019-05-02 07:01 | NUR ---
NURSE NOTES: Called patient's Public Guardian for blood transfusion consent. Left a message, awaiting for return call.
[2019-05-02] MEDS ORDERED: LORazepam 0.5mg tab ORAL PRN (07:30)
--- NOTE | 2019-05-02 07:30 | NUR ---
HAND-OFF: Report given to rashid werner using sbar.
--- NOTE | 2019-05-02 08:00 | NUR ---
NURSE NOTES: Received change of shift report from Rich DUNN. Pt is awake, restless, attempting to reach for ET tube. Pt has bilateral soft wrist restraints in place to prevent self extubation. Skin integrity at restrain site is within normal limits. Pt is orally intubated ETT 7.5 at 19cm right lipline with vent settings AC14, VT500, Peep 5.0, FIO2 40% with 99% O2Sat and diminished lung sounds on auscultation. edge runner displays NSR with heart rate in the 80's and bounding peripheral pulses on palpation. Pt has left upper arm double lumen PICC with IV fluid infusing D5 0.45%NS at 150ml/hour. Levophed is currently on hold/stand by. Pt also has left wrist peripheral IV access in place, saline locked, patent/intact. Temp 98.9F axillary. Pt has GT in place, clumped. Abdomen is round, soft, nontender to touch with hypoactive bowel sounds. Hilario catheter is present in bladder, draining mildly cloudy/yellow urine with sediments. Skin has unstagable pressure ulcer on sacral area, bilateral heel and left ankle slight erythema/DTI; sites are covered with optifoam dressings and lower extremities elevated on pillows. Head of bed is at low mustafa's with bed locked, in lowest position, three side rails up and call light within reach. Will continue to monitor and follow plan of care. Addendum: 05/02/19 at 0913 by REESE FIGUEROA RN RT was notified and AC settings were changed to AC 16 per MD order.
[2019-05-02] MEDS: Heparin 5000 units/ml inj SUBQ SCH ×2 (08:22→21:00)
[2019-05-02] MEDS: Pantoprazole Inj IV SCH ×2 (08:29→21:03)
[2019-05-02] MEDS: LORazepam Inj 2mg/ml 1ml IV PRN ×2 (08:29→11:48)
[2019-05-02] MEDS: NovoLOG Insulin Flexpen SUBQ SCH ×4 (08:42→23:34)
--- NOTE | 2019-05-02 08:45 | NUR ---
RADIOLOGY DEPT., CHEST X-RAY DONE.-P.DYE
--- NOTE | 2019-05-02 08:53 | Diagnostic Imaging Report ---
Indication: Dyspnea Technique: One view of the chest Comparison: 05/01/2019 Findings: Stable satisfactory position of endotracheal tube. Left arm PICC is again demonstrated. Bilateral interstitial and airspace edema appears stable on the right, improved on the left. There is suggestion of decreased pleural fluid on the left. The heart size is normal. Impression: Over one day, interval improvement of previously demonstrated left-sided pleural fluid and interstitial and airspace edema. Parenchymal disease is unchanged on the right.
[2019-05-02] MEDS ORDERED: Vancomycin 1gm/D5W 275ml IVPB ONE ×2 (09:00)
[2019-05-02] MEDS ORDERED: Pantoprazole Inj IV SCH (09:00)
--- NOTE | 2019-05-02 09:00 | NUR ---
NURSE NOTES: Pt was administered Ativan 2mg IVP per PRN order at 0830 for anxiety as pt was noted to be very restless. AM meds were also administered. Oral care was done and pt repositioned.
--- NOTE | 2019-05-02 10:00 | NUR ---
NURSE NOTES: Pt was seen by Dr Ho. Orders have been noted for KCL 10meq x4 bags, Mag 1gm x4 bags, and Kphos 20mm, and are being followed. RT at bedside, ABGs were drawn. VS stable. Addendum: 05/02/19 at 1426 by REESE FIGUEROA RN Pt is on Levophed at 4mcg/min to maintain SBP above 90.
--- NOTE | 2019-05-02 10:33 | Pulmonolgy Critical Care Note ---
Critical Care - Asmt/Plan Problems: (1) Septic shock (2) Acute respiratory failure (3) COPD (chronic obstructive pulmonary disease) (4) Hypernatremia (5) Acute kidney injury (6) Hypertension (7) Diabetes mellitus (8) Feeding by G-tube Respiratory: monitor respiratory rate, adjust FIO2, CXR Cardiac: continue pressors, continue to monitor HR/BP Renal: F/U I&O, keep IV fluid, check electrolytes Infectious Disease: check cultures, continue antibiotics Gastrointestinal: hold feedings, other - tap water in gtube at 50 cc /hour Endocrine: monitor blood sugar, check HgA1C Hematologic: monitor H/H, transfuse if hgb<8.5 Neurologic: PRN Morphine, keep patient comfortable Affect: PRN ativan Prophylaxis: Protonix Disposition: keep in ICU Notes Reviewed: press hand supervisor, cardio, renal, ID Discussed with: nurses, consultants, child welfare caseworkerindustrial relations manager - Objective Last 24 Hour Vital Signs Date Time Temp Pulse Resp B/P (MAP) Pulse Ox O2 Delivery O2 Flow Rate FiO2 05/02/19 10:00 78 16 97/47 (64) 100 05/02/19 09:30 76 16 90/61 (71) 99 05/02/19 09:23 75 16 40 05/02/19 09:00 81 16 100/39 (59) 99 05/02/19 08:30 81 17 106/60 (75) 99 05/02/19 08:00 40 05/02/19 08:00 82 05/02/19 08:00 98.8 85 15 114/46 (68) 99 05/02/19 07:20 95 22 40 05/02/19 07:00 91 19 115/65 (82) 99 05/02/19 06:58 114/76 05/02/19 06:45 98 20 114/76 (89) 100 05/02/19 06:30 92 21 97/76 (83) 99 05/02/19 06:18 103/60 05/02/19 06:15 93 22 103/60 (74) 99 05/02/19 06:00 93 21 119/45 (69) 99 05/02/19 05:45 90 18 123/60 (81) 99 05/02/19 05:30 90 23 120/68 (85) 99 05/02/19 05:15 76 14 104/51 (68) 99 05/02/19 05:00 74 14 97/48 (64) 99 05/02/19 05:00 106/56 05/02/19 04:48 83 14 40 05/02/19 04:45 72 14 101/55 (70) 99 05/02/19 04:30 76 15 102/57 (72) 99 05/02/19 04:15 72 16 105/53 (70) 99 05/02/19 04:00 40 05/02/19 04:00 77 05/02/19 04:00 97.8 77 14 108/55 (72) 99 05/02/19 04:00 105/53 05/02/19 04:00 Mechanical Ventilator 40.0 05/02/19 03:45 76 14 101/48 (65) 99 05/02/19 03:30 83 15 103/52 (69) 99 05/02/19 03:15 90 18 117/53 (74) 99 05/02/19 03:13 89 17 40 05/02/19 03:00 103/56 05/02/19 03:00 92 22 106/60 (75) 100 05/02/19 02:45 93 23 106/58 (74) 97 05/02/19 02:30 97 21 117/85 (96) 98 05/02/19 02:15 90 21 113/53 (73) 99 05/02/19 02:00 93 24 106/46 (66) 99 05/02/19 02:00 106/56 05/02/19 01:45 89 22 110/81 (91) 98 05/02/19 01:30 89 21 105/59 (74) 99 05/02/19 01:16 77 15 40 05/02/19 01:15 85 19 101/51 (68) 99 05/02/19 01:06 119/67 05/02/19 01:00 83 19 119/61 (80) 99 05/02/19 00:45 89 23 98/72 (81) 99 05/02/19 00:30 98.4 84 22 103/84 (90) 99 05/02/19 00:15 85 20 112/47 (68) 99 05/02/19 00:00 40.0 40 05/02/19 00:00 112/47 05/02/19 00:00 83 24 107/83 (91) 98 05/02/19 00:00 Mechanical Ventilator 40.0 05/02/19 00:00 83 05/01/19 23:45 86 24 114/96 (102) 99 05/01/19 23:30 89 19 108/86 (93) 100 05/01/19 23:19 79 15 40 05/01/19 23:15 78 26 99/51 (67) 99 05/01/19 23:00 76 23 100/53 (69) 99 05/01/19 23:00 100/46 05/01/19 23:00 76 23 100/53 (69) 99 05/01/19 22:45 74 20 96/50 (65) 99 05/01/19 22:30 76 15 99/46 (63) 100 05/01/19 22:15 76 13 100/48 (65) 99 05/01/19 22:00 78 15 98/43 (61) 99 05/01/19 22:00 114/56 05/01/19 21:45 76 16 112/42 (65) 100 05/01/19 21:30 77 8 112/49 (70) 100 05/01/19 21:15 73 17 110/54 (72) 100 05/01/19 21:00 110/54 05/01/19 21:00 73 15 96/58 (71) 100 05/01/19 20:45 75 10 99/57 (71) 99 05/01/19 20:45 62 16 40 05/01/19 20:30 77 14 101/48 (65) 99 05/01/19 20:15 99.0 83 23 104/54 (71) 100 05/01/19 20:00 99.0 83 23 104/54 (71) 100 05/01/19 20:00 75 05/01/19 20:00 88/50 05/01/19 20:00 Mechanical Ventilator 40.0 05/01/19 20:00 40.0 40 05/01/19 19:45 93 23 102/67 (79) 100 05/01/19 19:30 93 23 100/60 (73) 100 05/01/19 19:15 93 23 96/67 (77) 100 05/01/19 19:00 99.0 93 23 100/63 (75) 100 05/01/19 19:00 101/64 05/01/19 18:49 90 16 40 05/01/19 18:30 93 23 96/67 (77) 100 05/01/19 18:00 103/46 05/01/19 18:00 84 19 103/46 (65) 100 05/01/19 17:45 85 11 105/52 (69) 100 05/01/19 17:30 86 13 112/48 (69) 100 05/01/19 17:21 88 14 60 05/01/19 17:15 86 12 102/48 (66) 100 05/01/19 17:00 90 14 95/47 (63) 100 05/01/19 17:00 100/46 05/01/19 16:30 90 14 95/47 (63) 100 05/01/19 16:27 92 05/01/19 16:00 98.7 108 17 100/52 (68) 99 05/01/19 16:00 60 05/01/19 16:00 100/52 05/01/19 15:45 105/50 05/01/19 15:30 112 15 60 05/01/19 15:30 114 24 120/50 (73) 98 05/01/19 15:27 Mechanical Ventilator 05/01/19 15:20 120/50 05/01/19 15:00 117 21 97/45 (62) 94 05/01/19 14:27 123 05/01/19 14:20 99.2 120 19 104/45 (64) 94 05/01/19 14:20 104/45 05/01/19 14:20 60 05/01/19 13:58 111 19 95/36 97 Mechanical Ventilator 60 05/01/19 13:54 99.1 111 19 95/36 97 Mechanical Ventilator 60 05/01/19 13:52 99.1 101 19 95/36 97 Mechanical Ventilator 60 05/01/19 13:30 96 19 102/33 100 Mechanical Ventilator 60 05/01/19 13:26 104 14 60 05/01/19 13:00 109 19 97/36 100 Mechanical Ventilator 100 05/01/19 12:45 102/36 05/01/19 12:25 119 19 106/79 100 Mechanical Ventilator 100 05/01/19 12:15 94/39 05/01/19 12:15 118 19 94/39 100 Mechanical Ventilator 100 11/4/19 12:10 111 19 88/34 100 Mechanical Ventilator 100 05/01/19 12:10 88/39 05/01/19 12:05 82/46 05/01/19 12:05 120 19 82/46 100 Mechanical Ventilator 100 05/01/19 11:45 120 19 81/42 100 Mechanical Ventilator 100 05/01/19 11:30 117 19 80/45 100 Mechanical Ventilator 100 05/01/19 11:15 121 14 83/35 100 Mechanical Ventilator 100 05/01/19 11:14 60 05/01/19 11:00 118 14 100 Mechanical Ventilator 100 05/01/19 11:00 126 14 88/31 100 Mechanical Ventilator 100 05/01/19 10:45 144 24 60/40 100 Mechanical Ventilator 100 05/01/19 10:42 118 14 100 05/01/19 10:35 124 21 101/45 95 Ambu-Bag 100 Status: sedated, obtunded Condition: critical HEENT: atraumatic Lungs: rales, rhonchi Heart: HR/BP stable Abdomen: soft, feeding tube Extremities: edema Micro: Microbiology Date/Time Source Procedure Growth Status 05/01/19 10:15 Urine,Clean Catch Urine Culture - Preliminary Resulted 05/01/19 10:15 Rectal Mucosa Received Accucheck: 422 Critical Care - Subjective ROS Limited/Unobtainable: Yes Condition: critical EKG Rhythm: Sinus Rhythm FI02: 40 Vent Support Breath Rate: 16 Vent Support Mode: AC Vent Tidal Volume: 500 Sputum Amount: Small PEEP: 5.0 PIP: 22 I&O: Intake and Output 05/01/19 05/02/19 19:00 07:00 Intake Total 9290.255 ml 2053.76 ml Output Total 330 ml 400 ml Balance 8960.255 ml 1653.76 ml Intake Oral 0 ml IV Total 9290.255 ml 2053.76 ml Output Urine Total 330 ml 400 ml # Voids 40 # Bowel Movements 1 CXR: ET in good position ET-Tube: 7.5 ET Position: 19 Labs: Laboratory Tests Test 05/01/19 12:15 05/01/19 12:35 05/02/19 04:45 05/02/19 07:16 Lactic Acid Level 1.60 mmol/L (0.66-2.22) 2.40 mmol/L (0.4-2.0) H 3.30 mmol/L (0.66-2.22) H Arterial Blood pH 7.391 (7.350-7.450) Arterial Blood Partial Pressure CO2 51.4 mmHg (35.0-45.0) H Arterial Blood Partial Pressure O2 156.6 mmHg (75.0-100.0) H Arterial Blood HCO3 30.5 mmol/L (22.0-26.0) H Arterial Blood Oxygen Saturation 98.6 % (95-100) Arterial Blood Base Excess 4.8 (-2-2) H Silas Test Positive White Blood Count 10.0 K/UL (4.8-10.8) Red Blood Count 2.63 M/UL (4.20-5.40) L Hemoglobin 7.8 G/DL (12.0-16.0) #L Hematocrit 24.8 % (37.0-47.0) #L Mean Corpuscular Volume 94 FL (80-99) Mean Corpuscular Hemoglobin 29.7 PG (27.0-31.0) Mean Corpuscular Hemoglobin Concent 31.5 G/DL (32.0-36.0) L Red Cell Distribution Width 16.4 % (11.6-14.8) H Platelet Count 102 K/UL (150-450) L Mean Platelet Volume 10.4 FL (6.5-10.1) H Neutrophils (%) (Auto) % (45.0-75.0) Lymphocytes (%) (Auto) % (20.0-45.0) Monocytes (%) (Auto) % (1.0-10.0) Eosinophils (%) (Auto) % (0.0-3.0) Basophils (%) (Auto) % (0.0-2.0) Differential Total Cells Counted 100 Neutrophils % (Manual) 92 % (45-75) H Lymphocytes % (Manual) 7 % (20-45) L Monocytes % (Manual) 1 % (1-10) Eosinophils % (Manual) 0 % (0-3) Basophils % (Manual) 0 % (0-2) Band Neutrophils 0 % (0-8) Platelet Estimate Decreased L Platelet Morphology Normal Sodium Level 148 MMOL/L (136-145) #H Potassium Level 2.9 MMOL/L (3.5-5.1) L Chloride Level 114 MMOL/L (98-107) H Carbon Dioxide Level 22 MMOL/L (21-32) Anion Gap 12 mmol/L (5-15) Blood Urea Nitrogen 60 mg/dL (7-18) H Creatinine 1.8 MG/DL (0.55-1.30) H Estimat Glomerular Filtration Rate mL/min (>60) Glucose Level 503 MG/DL (74-106) #*H Hemoglobin A1c 6.4 % (4.3-6.0) H Calcium Level 10.7 MG/DL (8.5-10.1) H Phosphorus Level 2.1 MG/DL (2.5-4.9) L Magnesium Level 1.6 MG/DL (1.8-2.4) L Iron Level 9 ug/dL (50-175) L Total Iron Binding Capacity 97 ug/dL (250-450) L Percent Iron Saturation 9 % (15-50) L Unsaturated Iron Binding 88 ug/dL (112-346) L Ferritin 1603 NG/ML (8-388) H Total Bilirubin 0.6 MG/DL (0.2-1.0) Gamma Glutamyl Transpeptidase 63 U/L (5-85) Aspartate Amino Transf (AST/SGOT) 13 U/L (15-37) L Alanine Aminotransferase (ALT/SGPT) 30 U/L (12-78) Alkaline Phosphatase 106 U/L (46-116) Ammonia 21 umol/L (11-32) Total Creatine Kinase 29 U/L (26-308) Troponin I 0.143 ng/mL (0.000-0.056) C-Reactive Protein, Quantitative 36.0 mg/dL (0.00-0.90) H Pro-B-Type Natriuretic Peptide 1789 pg/mL (0-125) H Total Protein 4.7 G/DL (6.4-8.2) L Albumin 1.5 G/DL (3.4-5.0) L Globulin 3.2 g/dL Albumin/Globulin Ratio 0.5 (1.0-2.7) L Triglycerides Level 99 MG/DL (30-150) Cholesterol Level 96 MG/DL (< 200) LDL Cholesterol 50 mg/dL (<100) HDL Cholesterol 22 MG/DL (40-60) L Cholesterol/HDL Ratio 4.4 (3.3-4.4) Vitamin B12 Level 1138 PG/ML (193-986) H Folate 23.3 NG/ML (8.6-58.9) Thyroid Stimulating Hormone (TSH) 0.496 uiU/mL (0.358-3.740) Random Vancomycin Level 12.8 ug/mL Test 05/02/19 09:12 Arterial Blood pH 7.484 (7.350-7.450) Arterial Blood Partial Pressure CO2 28.6 mmHg (35.0-45.0) L Arterial Blood Partial Pressure O2 110.6 mmHg (75.0-100.0) H Arterial Blood HCO3 21.0 mmol/L (22.0-26.0) L Arterial Blood Oxygen Saturation 97.6 % (95-100) Arterial Blood Base Excess -1.9 (-2-2) Silas Test Positive Yancy Lai MD May 02, 2019 10:33
--- NOTE | 2019-05-02 10:40 | Nephrology Progress Note ---
Assessment/Plan Problem List: (1) Septic shock (2) Acute kidney injury (3) Acute respiratory failure (4) Dehydration (5) Anemia (6) Hypercalcemia Assessment Acute renal failure Dehydration / HyperNatremia / HyperCalcemia Septic Shock Respiratory failure / COPD NSTEMI DM PEG Schizophrenia Anemia Plan IV fluid change to 1/2 NS K and Phos and Mag supplement as needed monitor renal parameters urine studies anemia au avoid Nephrotoxics Subjective ROS Limited/Unobtainable: Yes Objective Objective Last 24 Hour Vital Signs Date Time Temp Pulse Resp B/P (MAP) Pulse Ox O2 Delivery O2 Flow Rate FiO2 05/02/19 10:00 78 16 97/47 (64) 100 05/02/19 09:30 76 16 90/61 (71) 99 05/02/19 09:23 75 16 40 05/02/19 09:00 81 16 100/39 (59) 99 05/02/19 08:30 81 17 106/60 (75) 99 05/02/19 08:00 40 05/02/19 08:00 82 05/02/19 08:00 98.8 85 15 114/46 (68) 99 05/02/19 07:20 95 22 40 05/02/19 07:00 91 19 115/65 (82) 99 05/02/19 06:58 114/76 05/02/19 06:45 98 20 114/76 (89) 100 05/02/19 06:30 92 21 97/76 (83) 99 05/02/19 06:18 103/60 05/02/19 06:15 93 22 103/60 (74) 99 05/02/19 06:00 93 21 119/45 (69) 99 05/02/19 05:45 90 18 123/60 (81) 99 05/02/19 05:30 90 23 120/68 (85) 99 05/02/19 05:15 76 14 104/51 (68) 99 05/02/19 05:00 74 14 97/48 (64) 99 05/02/19 05:00 106/56 05/02/19 04:48 83 14 40 05/02/19 04:45 72 14 101/55 (70) 99 05/02/19 04:30 76 15 102/57 (72) 99 05/02/19 04:15 72 16 105/53 (70) 99 05/02/19 04:00 40 05/02/19 04:00 77 05/02/19 04:00 97.8 77 14 108/55 (72) 99 05/02/19 04:00 105/53 05/02/19 04:00 Mechanical Ventilator 40.0 05/02/19 03:45 76 14 101/48 (65) 99 05/02/19 03:30 83 15 103/52 (69) 99 05/02/19 03:15 90 18 117/53 (74) 99 05/02/19 03:13 89 17 40 05/02/19 03:00 103/56 05/02/19 03:00 92 22 106/60 (75) 100 05/02/19 02:45 93 23 106/58 (74) 97 05/02/19 02:30 97 21 117/85 (96) 98 05/02/19 02:15 90 21 113/53 (73) 99 05/02/19 02:00 93 24 106/46 (66) 99 05/02/19 02:00 106/56 05/02/19 01:45 89 22 110/81 (91) 98 05/02/19 01:30 89 21 105/59 (74) 99 05/02/19 01:16 77 15 40 05/02/19 01:15 85 19 101/51 (68) 99 05/02/19 01:06 119/67 05/02/19 01:00 83 19 119/61 (80) 99 05/02/19 00:45 89 23 98/72 (81) 99 05/02/19 00:30 98.4 84 22 103/84 (90) 99 05/02/19 00:15 85 20 112/47 (68) 99 05/02/19 00:00 40.0 40 05/02/19 00:00 112/47 05/02/19 00:00 83 24 107/83 (91) 98 05/02/19 00:00 Mechanical Ventilator 40.0 05/02/19 00:00 83 05/01/19 23:45 86 24 114/96 (102) 99 05/01/19 23:30 89 19 108/86 (93) 100 05/01/19 23:19 79 15 40 05/01/19 23:15 78 26 99/51 (67) 99 05/01/19 23:00 76 23 100/53 (69) 99 05/01/19 23:00 100/46 05/01/19 23:00 76 23 100/53 (69) 99 05/01/19 22:45 74 20 96/50 (65) 99 05/01/19 22:30 76 15 99/46 (63) 100 05/01/19 22:15 76 13 100/48 (65) 99 05/01/19 22:00 78 15 98/43 (61) 99 05/01/19 22:00 114/56 05/01/19 21:45 76 16 112/42 (65) 100 05/01/19 21:30 77 8 112/49 (70) 100 05/01/19 21:15 73 17 110/54 (72) 100 05/01/19 21:00 110/54 05/01/19 21:00 73 15 96/58 (71) 100 05/01/19 20:45 75 10 99/57 (71) 99 05/01/19 20:45 62 16 40 05/01/19 20:30 77 14 101/48 (65) 99 05/01/19 20:15 99.0 83 23 104/54 (71) 100 05/01/19 20:00 99.0 83 23 104/54 (71) 100 05/01/19 20:00 75 05/01/19 20:00 88/50 05/01/19 20:00 Mechanical Ventilator 40.0 05/01/19 20:00 40.0 40 05/01/19 19:45 93 23 102/67 (79) 100 05/01/19 19:30 93 23 100/60 (73) 100 05/01/19 19:15 93 23 96/67 (77) 100 05/01/19 19:00 99.0 93 23 100/63 (75) 100 05/01/19 19:00 101/64 05/01/19 18:49 90 16 40 05/01/19 18:30 93 23 96/67 (77) 100 05/01/19 18:00 103/46 05/01/19 18:00 84 19 103/46 (65) 100 05/01/19 17:45 85 11 105/52 (69) 100 05/01/19 17:30 86 13 112/48 (69) 100 11/4/19 17:21 88 14 60 05/01/19 17:15 86 12 102/48 (66) 100 05/01/19 17:00 90 14 95/47 (63) 100 05/01/19 17:00 100/46 05/01/19 16:30 90 14 95/47 (63) 100 05/01/19 16:27 92 05/01/19 16:00 98.7 108 17 100/52 (68) 99 05/01/19 16:00 60 05/01/19 16:00 100/52 05/01/19 15:45 105/50 05/01/19 15:30 112 15 60 05/01/19 15:30 114 24 120/50 (73) 98 05/01/19 15:27 Mechanical Ventilator 05/01/19 15:20 120/50 05/01/19 15:00 117 21 97/45 (62) 94 05/01/19 14:27 123 05/01/19 14:20 99.2 120 19 104/45 (64) 94 05/01/19 14:20 104/45 05/01/19 14:20 60 05/01/19 13:58 111 19 95/36 97 Mechanical Ventilator 60 05/01/19 13:54 99.1 111 19 95/36 97 Mechanical Ventilator 60 05/01/19 13:52 99.1 101 19 95/36 97 Mechanical Ventilator 60 05/01/19 13:30 96 19 102/33 100 Mechanical Ventilator 60 05/01/19 13:26 104 14 60 05/01/19 13:00 109 19 97/36 100 Mechanical Ventilator 100 05/01/19 12:45 102/36 05/01/19 12:25 119 19 106/79 100 Mechanical Ventilator 100 05/01/19 12:15 94/39 05/01/19 12:15 118 19 94/39 100 Mechanical Ventilator 100 05/01/19 12:10 111 19 88/34 100 Mechanical Ventilator 100 05/01/19 12:10 88/39 05/01/19 12:05 82/46 05/01/19 12:05 120 19 82/46 100 Mechanical Ventilator 100 05/01/19 11:45 120 19 81/42 100 Mechanical Ventilator 100 05/01/19 11:30 117 19 80/45 100 Mechanical Ventilator 100 05/01/19 11:15 121 14 83/35 100 Mechanical Ventilator 100 05/01/19 11:14 60 05/01/19 11:00 118 14 100 Mechanical Ventilator 100 05/01/19 11:00 126 14 88/31 100 Mechanical Ventilator 100 05/01/19 10:45 144 24 60/40 100 Mechanical Ventilator 100 05/01/19 10:42 118 14 100 Intake and Output 05/01/19 05/02/19 19:00 07:00 Intake Total 9290.255 ml 2053.76 ml Output Total 330 ml 400 ml Balance 8960.255 ml 1653.76 ml Intake Oral 0 ml IV Total 9290.255 ml 2053.76 ml Output Urine Total 330 ml 400 ml # Voids 40 # Bowel Movements 1 Laboratory Tests 05/01/19 12:15: Lactic Acid Level 1.60 05/01/19 12:35: Arterial Blood pH 7.391, Arterial Blood Partial Pressure CO2 51.4H, Arterial Blood Partial Pressure O2 156.6H, Arterial Blood HCO3 30.5H, Arterial Blood Oxygen Saturation 98.6, Arterial Blood Base Excess 4.8H, Silas Test Positive 05/02/19 04:45: Lactic Acid Level 2.40H, White Blood Count 10.0, Red Blood Count 2.63L, Hemoglobin 7.8#L, Hematocrit 24.8#L, Mean Corpuscular Volume 94, Mean Corpuscular Hemoglobin 29.7, Mean Corpuscular Hemoglobin Concent 31.5L, Red Cell Distribution Width 16.4H, Platelet Count 102L, Mean Platelet Volume 10.4H, Neutrophils (%) (Auto) , Lymphocytes (%) (Auto) , Monocytes (%) (Auto) , Eosinophils (%) (Auto) , Basophils (%) (Auto) , Differential Total Cells Counted 100, Neutrophils % (Manual) 92H, Lymphocytes % (Manual) 7L, Monocytes % (Manual) 1, Eosinophils % (Manual) 0, Basophils % (Manual) 0, Band Neutrophils 0 , Platelet Estimate DecreasedL, Platelet Morphology Normal, Sodium Level 148#H, Potassium Level 2.9L, Chloride Level 114H, Carbon Dioxide Level 22, Anion Gap 12 , Blood Urea Nitrogen 60H, Creatinine 1.8H, Estimat Glomerular Filtration Rate , Glucose Level 503#*H, Hemoglobin A1c 6.4H, Calcium Level 10.7H, Phosphorus Level 2.1L, Magnesium Level 1.6L, Iron Level 9L, Total Iron Binding Capacity 97L , Percent Iron Saturation 9L, Unsaturated Iron Binding 88L, Ferritin 1603H, Total Bilirubin 0.6, Gamma Glutamyl Transpeptidase 63, Aspartate Amino Transf ( AST/SGOT) 13L, Alanine Aminotransferase (ALT/SGPT) 30, Alkaline Phosphatase 106 , Ammonia 21, Total Creatine Kinase 29, Troponin I 0.143H, C-Reactive Protein, Quantitative 36.0H, Pro-B-Type Natriuretic Peptide 1789H, Total Protein 4.7L, Albumin 1.5L, Globulin 3.2, Albumin/Globulin Ratio 0.5L, Triglycerides Level 99 , Cholesterol Level 96, LDL Cholesterol 50, HDL Cholesterol 22L, Cholesterol/ HDL Ratio 4.4, Vitamin B12 Level 1138H, Folate 23.3, Thyroid Stimulating Hormone (TSH) 0.496, Random Vancomycin Level 12.8 05/02/19 07:16: Lactic Acid Level 3.30H 05/02/19 09:12: Arterial Blood pH 7.484H, Arterial Blood Partial Pressure CO2 28.6L, Arterial Blood Partial Pressure O2 110.6H, Arterial Blood HCO3 21.0L, Arterial Blood Oxygen Saturation 97.6, Arterial Blood Base Excess -1.9, Silas Test Positive Height (Feet): 5 Height (Inches): 7.00 Weight (Pounds): 114 General Appearance: no apparent distress, lethargic EENT: other - vented Cardiovascular: normal rate Respiratory/Chest: decreased breath sounds Abdomen: distended Fox Ho MD May 02, 2019 10:40
[2019-05-02] MEDS ORDERED: Potassium Phosphate 20 MM in NS 275 ML IV ONE (11:00)
--- NOTE | 2019-05-02 11:00 | NUR ---
NURSE NOTES:WOUND CARE NOTES: Pt presented on admission with multiple pressure injuries:Full Thickness Pressure injury sacrum. Base of wound 100% necrotic with red margins(L)2.5cm x (W)2.7cm with surrounding maroon and indurated borders (L)7.5cm x (W)8.5cm. Maroon and indurated area noted to R buttocks. Non-blanching erythema noted to R trochanteric.(L)6.5cm x (W)7.5cm. Elongated red wel;t noted to medial/posterior R thigh(L)0.6cm x (W)5.2cm. L heel boggy with non-blanching erythema. Non-Blanchable erythema R heel without fluctuance. Recommendations: APM/SOILA Mattress overlay. Reposition at least every 2hours or as tolerated. Off-load heels with Pillow.
--- NOTE | 2019-05-02 11:00 | NUR ---
NURSE NOTES: Pt was seen by wound care nurse, and additional wound photos were taken. Pt was also seen by Dr Lai and order noted to DC D5 0.45NS and start 0.45NS at 75ml/hour. Order was also received to start pt on GT water infusion at 50ml/hour.
--- NOTE | 2019-05-02 11:15 | NUR ---
RD ASSESSMENT & RECOMMENDATIONS SEE CARE ACTIVITY FOR COMPLETE ASSESSMENT DAILY ESTIMATED NEEDS: Needs based on Critical care, wounds; 48.6kg 22- 30 kcals/kg 2497-0432 total kcals 1.25-2 g protein/kg 61-97 g total protein 25-30 mL/kg 9355-2396 total fluid mLs NUTRITION DIAGNOSIS: 1) Increased kcal and pro needs r/t wound healing AEB pt adm w/ multiple wounds, including open sacral wounds, eval is pending. 2) Swallowing difficulty r/t respiratory status AEB pt is intubated, Peg dep, now NPO. ENTERAL NUTRITION RECOMMENDATIONS: Glucerna 1.2 @ 50mL/hr x 24 hrs to provide 1200mL, 1440kcal, 72g pro, 966mL free H2O - With hemodynamic stability, begin Glucerna 1.2 @ 20mL/hr, advance 10mL/hr q4-6hrs until @ goal. - HOB >30 degrees, Flush per MD ADDITIONAL RECOMMENDATIONS: 1) Per SNF: 107 lbs, 60 inches 2) When pt is stable, see TF recs above. 3) F/up w/ WC eval -> w/ diet order, provide Arnaldo BID 4) Monitor lytes-> repletion pending for K, phos, Mg 5) With continued elevated blood glucose, rec long acting insulin Monitor BG w/ active TF order
--- NOTE | 2019-05-02 11:50 | NUR ---
NURSE NOTES: Pt was administered Ativan 2mg IVP per PRN order for anxiety as pt is noted be very restless. Bilateral soft wrist restraints remain on, to prevent self extubation. Skin integrity at restraint site is within normal limits.
--- NOTE | 2019-05-02 12:00 | NUR ---
NURSE NOTES: Pt remains afebrile 98.6F axillary. monitoring coordinator displays NSR with heart rate currently in the upper 80's. Pt was just infused Albuminar per MD order. IV Mag, KCL, Kphos and 0.45NS are still infusing in addition to Levophed currently titrated down to 2mcg/min. VS stable. Hilario catheter continues to drain mildly cloudy/yellow urine with sediments at an average of 30ml/hour. RT was at bedside, bite block was changed, oral care was done and pt suctioned. Pt has yellow thick secretions. Pt has been repositioned with lower extremities elevated on pillows.
--- NOTE | 2019-05-02 12:10 | Cardiology Progress Note ---
Assessment/Plan Assessment/Plan 1. Acute febrile illness, sepsis. 2. Hypotension. 3. Possible pneumonia/ respiratory failure acute 4. Urinary tract infection? 5. Hypernatremia. 6. Renal insufficiency and failure. 7. Dementia. 8. G-tube placement. 9. anemia 10. thrombocytopenia 11. lactic acidosis 12. hyperglycemia still with sig pulm secretion per staff now gettign free water through the gtube iv abx vent support watch hgb adn plt may need prbc tx abn trop noted cxr personally reviewed remain on pressors bp dropped to 80's per rn earlier to day tele reviewed tremor artifact no afib ekg reviewed tremor artifact no afib remain quite ill but improving a little d/w rn pulm toilette await echo to review Subjective ROS Limited/Unobtainable: Yes Objective Last 24 Hour Vital Signs Date Time Temp Pulse Resp B/P (MAP) Pulse Ox O2 Delivery O2 Flow Rate FiO2 05/02/19 11:30 89 21 124/57 (79) 100 05/02/19 11:21 79 16 40 05/02/19 11:00 81 19 109/83 (92) 98 05/02/19 10:00 78 16 97/47 (64) 100 05/02/19 09:30 76 16 90/61 (71) 99 05/02/19 09:23 75 16 40 05/02/19 09:00 81 16 100/39 (59) 99 05/02/19 08:30 81 17 106/60 (75) 99 05/02/19 08:00 Mechanical Ventilator 40.0 05/02/19 08:00 40 05/02/19 08:00 82 05/02/19 08:00 98.8 85 15 114/46 (68) 99 05/02/19 07:20 95 22 40 05/02/19 07:00 91 19 115/65 (82) 99 05/02/19 06:58 114/76 05/02/19 06:45 98 20 114/76 (89) 100 05/02/19 06:30 92 21 97/76 (83) 99 05/02/19 06:18 103/60 05/02/19 06:15 93 22 103/60 (74) 99 05/02/19 06:00 93 21 119/45 (69) 99 05/02/19 05:45 90 18 123/60 (81) 99 05/02/19 05:30 90 23 120/68 (85) 99 05/02/19 05:15 76 14 104/51 (68) 99 05/02/19 05:00 74 14 97/48 (64) 99 05/02/19 05:00 106/56 05/02/19 04:48 83 14 40 05/02/19 04:45 72 14 101/55 (70) 99 05/02/19 04:30 76 15 102/57 (72) 99 05/02/19 04:15 72 16 105/53 (70) 99 05/02/19 04:00 40 05/02/19 04:00 77 05/02/19 04:00 97.8 77 14 108/55 (72) 99 05/02/19 04:00 105/53 05/02/19 04:00 Mechanical Ventilator 40.0 05/02/19 03:45 76 14 101/48 (65) 99 05/02/19 03:30 83 15 103/52 (69) 99 05/02/19 03:15 90 18 117/53 (74) 99 05/02/19 03:13 89 17 40 05/02/19 03:00 103/56 05/02/19 03:00 92 22 106/60 (75) 100 05/02/19 02:45 93 23 106/58 (74) 97 05/02/19 02:30 97 21 117/85 (96) 98 05/02/19 02:15 90 21 113/53 (73) 99 05/02/19 02:00 93 24 106/46 (66) 99 05/02/19 02:00 106/56 05/02/19 01:45 89 22 110/81 (91) 98 05/02/19 01:30 89 21 105/59 (74) 99 05/02/19 01:16 77 15 40 05/02/19 01:15 85 19 101/51 (68) 99 05/02/19 01:06 119/67 05/02/19 01:00 83 19 119/61 (80) 99 05/02/19 00:45 89 23 98/72 (81) 99 05/02/19 00:30 98.4 84 22 103/84 (90) 99 05/02/19 00:15 85 20 112/47 (68) 99 11/5/19 00:00 40.0 40 05/02/19 00:00 112/47 05/02/19 00:00 83 24 107/83 (91) 98 05/02/19 00:00 Mechanical Ventilator 40.0 05/02/19 00:00 83 05/01/19 23:45 86 24 114/96 (102) 99 05/01/19 23:30 89 19 108/86 (93) 100 05/01/19 23:19 79 15 40 05/01/19 23:15 78 26 99/51 (67) 99 05/01/19 23:00 76 23 100/53 (69) 99 05/01/19 23:00 100/46 05/01/19 23:00 76 23 100/53 (69) 99 05/01/19 22:45 74 20 96/50 (65) 99 05/01/19 22:30 76 15 99/46 (63) 100 05/01/19 22:15 76 13 100/48 (65) 99 05/01/19 22:00 78 15 98/43 (61) 99 05/01/19 22:00 114/56 05/01/19 21:45 76 16 112/42 (65) 100 05/01/19 21:30 77 8 112/49 (70) 100 05/01/19 21:15 73 17 110/54 (72) 100 05/01/19 21:00 110/54 05/01/19 21:00 73 15 96/58 (71) 100 05/01/19 20:45 75 10 99/57 (71) 99 05/01/19 20:45 62 16 40 05/01/19 20:30 77 14 101/48 (65) 99 05/01/19 20:15 99.0 83 23 104/54 (71) 100 05/01/19 20:00 99.0 83 23 104/54 (71) 100 05/01/19 20:00 75 05/01/19 20:00 88/50 05/01/19 20:00 Mechanical Ventilator 40.0 05/01/19 20:00 40.0 40 05/01/19 19:45 93 23 102/67 (79) 100 05/01/19 19:30 93 23 100/60 (73) 100 05/01/19 19:15 93 23 96/67 (77) 100 05/01/19 19:00 99.0 93 23 100/63 (75) 100 05/01/19 19:00 101/64 05/01/19 18:49 90 16 40 05/01/19 18:30 93 23 96/67 (77) 100 05/01/19 18:00 103/46 05/01/19 18:00 84 19 103/46 (65) 100 05/01/19 17:45 85 11 105/52 (69) 100 05/01/19 17:30 86 13 112/48 (69) 100 05/01/19 17:21 88 14 60 05/01/19 17:15 86 12 102/48 (66) 100 05/01/19 17:00 90 14 95/47 (63) 100 05/01/19 17:00 100/46 05/01/19 16:30 90 14 95/47 (63) 100 05/01/19 16:27 92 05/01/19 16:00 98.7 108 17 100/52 (68) 99 05/01/19 16:00 60 05/01/19 16:00 100/52 05/01/19 15:45 105/50 05/01/19 15:30 112 15 60 05/01/19 15:30 114 24 120/50 (73) 98 05/01/19 15:27 Mechanical Ventilator 05/01/19 15:20 120/50 05/01/19 15:00 117 21 97/45 (62) 94 05/01/19 14:27 123 05/01/19 14:20 99.2 120 19 104/45 (64) 94 05/01/19 14:20 104/45 05/01/19 14:20 60 05/01/19 13:58 111 19 95/36 97 Mechanical Ventilator 60 05/01/19 13:54 99.1 111 19 95/36 97 Mechanical Ventilator 60 05/01/19 13:52 99.1 101 19 95/36 97 Mechanical Ventilator 60 05/01/19 13:30 96 19 102/33 100 Mechanical Ventilator 60 05/01/19 13:26 104 14 60 05/01/19 13:00 109 19 97/36 100 Mechanical Ventilator 100 05/01/19 12:45 102/36 05/01/19 12:25 119 19 106/79 100 Mechanical Ventilator 100 05/01/19 12:15 94/39 05/01/19 12:15 118 19 94/39 100 Mechanical Ventilator 100 05/01/19 12:10 111 19 88/34 100 Mechanical Ventilator 100 05/01/19 12:10 88/39 05/01/19 12:05 82/46 05/01/19 12:05 120 19 82/46 100 Mechanical Ventilator 100 General Appearance: no apparent distress, on vent, patient on isolation Neck: supple Cardiovascular: normal rate Respiratory/Chest: rhonchi - left Abdomen: normal bowel sounds, non tender, soft Extremities: no swelling Intake and Output 05/01/19 05/02/19 19:00 07:00 Intake Total 9290.255 ml 2053.76 ml Output Total 330 ml 400 ml Balance 8960.255 ml 1653.76 ml Intake Oral 0 ml IV Total 9290.255 ml 2053.76 ml Output Urine Total 330 ml 400 ml # Voids 40 # Bowel Movements 1 Laboratory Tests Test 05/01/19 12:15 05/01/19 12:35 05/02/19 04:45 05/02/19 07:16 Lactic Acid Level 1.60 mmol/L (0.66-2.22) 2.40 mmol/L (0.4-2.0) H 3.30 mmol/L (0.66-2.22) H Arterial Blood pH 7.391 (7.350-7.450) Arterial Blood Partial Pressure CO2 51.4 mmHg (35.0-45.0) H Arterial Blood Partial Pressure O2 156.6 mmHg (75.0-100.0) H Arterial Blood HCO3 30.5 mmol/L (22.0-26.0) H Arterial Blood Oxygen Saturation 98.6 % (95-100) Arterial Blood Base Excess 4.8 (-2-2) H Silas Test Positive White Blood Count 10.0 K/UL (4.8-10.8) Red Blood Count 2.63 M/UL (4.20-5.40) L Hemoglobin 7.8 G/DL (12.0-16.0) #L Hematocrit 24.8 % (37.0-47.0) #L Mean Corpuscular Volume 94 FL (80-99) Mean Corpuscular Hemoglobin 29.7 PG (27.0-31.0) Mean Corpuscular Hemoglobin Concent 31.5 G/DL (32.0-36.0) L Red Cell Distribution Width 16.4 % (11.6-14.8) H Platelet Count 102 K/UL (150-450) L Mean Platelet Volume 10.4 FL (6.5-10.1) H Neutrophils (%) (Auto) % (45.0-75.0) Lymphocytes (%) (Auto) % (20.0-45.0) Monocytes (%) (Auto) % (1.0-10.0) Eosinophils (%) (Auto) % (0.0-3.0) Basophils (%) (Auto) % (0.0-2.0) Differential Total Cells Counted 100 Neutrophils % (Manual) 92 % (45-75) H Lymphocytes % (Manual) 7 % (20-45) L Monocytes % (Manual) 1 % (1-10) Eosinophils % (Manual) 0 % (0-3) Basophils % (Manual) 0 % (0-2) Band Neutrophils 0 % (0-8) Platelet Estimate Decreased L Platelet Morphology Normal Sodium Level 148 MMOL/L (136-145) #H Potassium Level 2.9 MMOL/L (3.5-5.1) L Chloride Level 114 MMOL/L (98-107) H Carbon Dioxide Level 22 MMOL/L (21-32) Anion Gap 12 mmol/L (5-15) Blood Urea Nitrogen 60 mg/dL (7-18) H Creatinine 1.8 MG/DL (0.55-1.30) H Estimat Glomerular Filtration Rate mL/min (>60) Glucose Level 503 MG/DL (74-106) #*H Hemoglobin A1c 6.4 % (4.3-6.0) H Calcium Level 10.7 MG/DL (8.5-10.1) H Phosphorus Level 2.1 MG/DL (2.5-4.9) L Magnesium Level 1.6 MG/DL (1.8-2.4) L Iron Level 9 ug/dL (50-175) L Total Iron Binding Capacity 97 ug/dL (250-450) L Percent Iron Saturation 9 % (15-50) L Unsaturated Iron Binding 88 ug/dL (112-346) L Ferritin 1603 NG/ML (8-388) H Total Bilirubin 0.6 MG/DL (0.2-1.0) Gamma Glutamyl Transpeptidase 63 U/L (5-85) Aspartate Amino Transf (AST/SGOT) 13 U/L (15-37) L Alanine Aminotransferase (ALT/SGPT) 30 U/L (12-78) Alkaline Phosphatase 106 U/L (46-116) Ammonia 21 umol/L (11-32) Total Creatine Kinase 29 U/L (26-308) Troponin I 0.143 ng/mL (0.000-0.056) C-Reactive Protein, Quantitative 36.0 mg/dL (0.00-0.90) H Pro-B-Type Natriuretic Peptide 1789 pg/mL (0-125) H Total Protein 4.7 G/DL (6.4-8.2) L Albumin 1.5 G/DL (3.4-5.0) L Globulin 3.2 g/dL Albumin/Globulin Ratio 0.5 (1.0-2.7) L Triglycerides Level 99 MG/DL (30-150) Cholesterol Level 96 MG/DL (< 200) LDL Cholesterol 50 mg/dL (<100) HDL Cholesterol 22 MG/DL (40-60) L Cholesterol/HDL Ratio 4.4 (3.3-4.4) Vitamin B12 Level 1138 PG/ML (193-986) H Folate 23.3 NG/ML (8.6-58.9) Thyroid Stimulating Hormone (TSH) 0.496 uiU/mL (0.358-3.740) Random Vancomycin Level 12.8 ug/mL Test 05/02/19 09:12 05/02/19 11:20 Arterial Blood pH 7.484 (7.350-7.450) Arterial Blood Partial Pressure CO2 28.6 mmHg (35.0-45.0) L Arterial Blood Partial Pressure O2 110.6 mmHg (75.0-100.0) H Arterial Blood HCO3 21.0 mmol/L (22.0-26.0) L Arterial Blood Oxygen Saturation 97.6 % (95-100) Arterial Blood Base Excess -1.9 (-2-2) Silas Test Positive Lactic Acid Level Pending Microbiology Date/Time Source Procedure Growth Status 05/01/19 10:15 Urine,Clean Catch Urine Culture - Preliminary Resulted 05/01/19 10:15 Rectal Mucosa Received Objective Current Medications Medications (Trade) Dose Ordered Sig/Vane Route PRN Reason Start Time Stop Time Status Last Admin Dose Admin Acetaminophen (Tylenol) 650 mg Q4H PRN ORAL fever 05/01/19 12:45 05/31/19 12:44 Albuterol/ Ipratropium (Albuterol/ Ipratropium) 3 ml Q4H PRN HHN Shortness of Breath 05/01/19 12:45 05/06/19 12:44 Amikacin Protocol (Amikacin pharmacy to dose) 1 ea DAILY PRN MISC . 05/01/19 12:45 05/31/19 12:44 Amikacin Sulfate 500 mg/Sodium Chloride 112 ml @ 112 mls/hr Q24H IV 05/01/19 18:00 05/08/19 17:59 05/01/19 18:04 Chlorhexidine Gluconate (Shanice-Hex 2%) 1 applic DAILY@2000 TOPIC 05/01/19 20:00 05/31/19 19:59 05/01/19 19:48 Dextrose (Dextrose 50%) 25 ml Q30M PRN IV Hypoglycemia 05/02/19 06:30 06/01/19 06:29 Dextrose (Dextrose 50%) 50 ml Q30M PRN IV Hypoglycemia 05/02/19 06:30 06/01/19 06:29 Ertapenem 0.5 gm/ Sodium Chloride 55 ml @ 110 mls/hr Q24H IV 05/01/19 21:00 05/06/19 20:59 05/01/19 21:15 Heparin Sodium (Porcine) (Heparin 5000 units/ml) 5,000 units EVERY 12 HOURS SUBQ 05/01/19 21:00 05/31/19 20:59 05/01/19 21:17 Insulin Aspart (NovoLOG) EVERY 6 HOURS SUBQ 05/02/19 07:30 06/01/19 07:29 05/02/19 08:42 Lorazepam (Ativan 2mg/ml 1ml) 2 mg Q2H PRN IV For Anxiety 05/01/19 12:45 05/08/19 12:44 05/02/19 11:48 Lorazepam (Ativan) 0.5 mg Q6H PRN ORAL For Anxiety 05/02/19 07:30 05/09/19 07:29 Magnesium Sulfate 100 ml @ 100 mls/hr Q1H IVPB 05/02/19 10:00 05/02/19 13:59 05/02/19 11:03 Morphine Sulfate (Morphine Sulfate) 4 mg Q4H PRN IVP Severe Pain (Pain Scale 7-10) 05/01/19 12:45 05/08/19 12:44 Norepinephrine Bitartrate 4 mg/ Dextrose 254 ml @ 0 mls/hr Q24H IV 05/01/19 12:45 05/31/19 12:44 05/01/19 15:45 Ondansetron HCl (Zofran) 4 mg Q6H PRN IVP Nausea & Vomiting 05/01/19 12:45 05/31/19 12:44 Pantoprazole (Protonix) 40 mg Q12HR IV 05/01/19 21:00 06/01/19 08:59 05/02/19 08:29 Potassium Phosphate 20 mm/ Sodium Chloride 281.6667 ml @ 46.944 m... ONCE ONCE IV 05/02/19 11:00 05/02/19 16:59 05/02/19 11:02 Potassium Chloride 100 ml @ 100 mls/hr Q1HR IVPB 05/02/19 10:00 05/02/19 13:59 05/02/19 11:02 Risperidone (RisperDAL) 0.25 mg QHS PRN GT Agitation 05/02/19 07:30 06/01/19 07:29 Sodium Chloride 1,000 ml @ 75 mls/hr [id number] IV 05/02/19 10:39 06/01/19 10:38 05/02/19 11:02 Vancomycin HCl (Vanco rx to dose) 1 ea DAILY PRN MISC . 05/01/19 12:45 05/31/19 12:44 Martin Sarmiento MD May 02, 2019 12:09
--- NOTE | 2019-05-02 13:30 | NUR ---
NURSE NOTES: Contacted pt's guarantor listed on facesheet [phone] for consent for blood transfusion; voice message was left. Awaiting for call back.
--- NOTE | 2019-05-02 14:26 | NUR ---
NURSE NOTES: Levophed was titrated up to 4mcg/min to maintain SBP above 90.
--- NOTE | 2019-05-02 15:46 | Infectious Diseases Prog Note ---
Assessment/Plan Assessment/Plan Assessment/Recommendation: Tmax 104.2, SP No leukocytosis Lactate 3.4>1.6>2.4>3.3>3.8 UTI? 05/01 UA 10-15 WBC 05/01 Ucx: P PNA? 05/01 sputum cx: P 05/01 CXR: Right mainstem intubation. Suggest pulling the tube back about 3 cm. Atelectasis of the left lower lobe. Superimposed pneumonia or pleural effusion is not excluded. CHF suspected. 05/01 CXR: Endotracheal tube is 2 cm above the guille in good position. A left subclavian line is also present in good position of the tip projected over the SVC. Pulmonary edema again demonstrated. There is hazy opacity at the left lung base which is probably a pleural effusion. 05/02 CXR: Over one day, interval improvement of previously demonstrated left- sided pleural fluid and interstitial and airspace edema. Parenchymal disease is unchanged on the right. r/o bacteremia 05/01 BCx: P HTN COPD Schizophrenia DM G tube Parkinson CKD Protein calorie malnutrition Dementia Psychosis Gastritis Functional paraplegia Plan: Ertapenem, Amikacin, Vancomycin #2 steroid per pulm f/u bcx f/u ucx f/u sputum cx aspiration precaution ETT management skin care oral care Thank you for this consult. [facility] will continue to follow the patient with you. Subjective Allergies: Coded Allergies: No Known Allergies (Unverified , 05/01/19) Subjective Afebrile. levophed titrated off overnight but then had to be restarted this morning. No diarrhea. Moderate secretions. Sacral pressure wound. Lactate worsening Hemoglobin dropped 3 units Objective Vital Signs Last 24 Hour Vital Signs Date Time Temp Pulse Resp B/P (MAP) Pulse Ox O2 Delivery O2 Flow Rate FiO2 05/02/19 14:00 76 16 98/48 (65) 99 05/02/19 14:00 93/46 05/02/19 13:30 77 16 96/52 (67) 99 05/02/19 13:26 81 17 30 05/02/19 13:00 101/56 05/02/19 13:00 79 22 98/46 (63) 100 05/02/19 12:00 98.6 87 20 99/42 (61) 99 05/02/19 12:00 98/54 05/02/19 12:00 Mechanical Ventilator 40.0 05/02/19 12:00 80 05/02/19 12:00 40 05/02/19 11:30 89 21 124/57 (79) 100 05/02/19 11:21 79 16 40 05/02/19 11:00 96/54 05/02/19 11:00 81 19 109/83 (92) 98 05/02/19 10:00 88/58 05/02/19 10:00 78 16 97/47 (64) 100 05/02/19 09:30 76 16 90/61 (71) 99 05/02/19 09:23 75 16 40 05/02/19 09:00 81 16 100/39 (59) 99 05/02/19 08:30 81 17 106/60 (75) 99 05/02/19 08:00 Mechanical Ventilator 40.0 05/02/19 08:00 40 05/02/19 08:00 82 05/02/19 08:00 98.8 85 15 114/46 (68) 99 05/02/19 07:20 95 22 40 05/02/19 07:00 91 19 115/65 (82) 99 05/02/19 06:58 114/76 05/02/19 06:45 98 20 114/76 (89) 100 05/02/19 06:30 92 21 97/76 (83) 99 05/02/19 06:18 103/60 05/02/19 06:15 93 22 103/60 (74) 99 05/02/19 06:00 93 21 119/45 (69) 99 05/02/19 05:45 90 18 123/60 (81) 99 05/02/19 05:30 90 23 120/68 (85) 99 05/02/19 05:15 76 14 104/51 (68) 99 05/02/19 05:00 74 14 97/48 (64) 99 05/02/19 05:00 106/56 05/02/19 04:48 83 14 40 05/02/19 04:45 72 14 101/55 (70) 99 05/02/19 04:30 76 15 102/57 (72) 99 05/02/19 04:15 72 16 105/53 (70) 99 05/02/19 04:00 40 05/02/19 04:00 77 05/02/19 04:00 97.8 77 14 108/55 (72) 99 05/02/19 04:00 105/53 05/02/19 04:00 Mechanical Ventilator 40.0 05/02/19 03:45 76 14 101/48 (65) 99 05/02/19 03:30 83 15 103/52 (69) 99 05/02/19 03:15 90 18 117/53 (74) 99 05/02/19 03:13 89 17 40 05/02/19 03:00 103/56 05/02/19 03:00 92 22 106/60 (75) 100 05/02/19 02:45 93 23 106/58 (74) 97 05/02/19 02:30 97 21 117/85 (96) 98 05/02/19 02:15 90 21 113/53 (73) 99 05/02/19 02:00 93 24 106/46 (66) 99 05/02/19 02:00 106/56 05/02/19 01:45 89 22 110/81 (91) 98 05/02/19 01:30 89 21 105/59 (74) 99 05/02/19 01:16 77 15 40 05/02/19 01:15 85 19 101/51 (68) 99 05/02/19 01:06 119/67 05/02/19 01:00 83 19 119/61 (80) 99 05/02/19 00:45 89 23 98/72 (81) 99 05/02/19 00:30 98.4 84 22 103/84 (90) 99 05/02/19 00:15 85 20 112/47 (68) 99 05/02/19 00:00 40.0 40 05/02/19 00:00 112/47 05/02/19 00:00 83 24 107/83 (91) 98 05/02/19 00:00 Mechanical Ventilator 40.0 05/02/19 00:00 83 05/01/19 23:45 86 24 114/96 (102) 99 05/01/19 23:30 89 19 108/86 (93) 100 05/01/19 23:19 79 15 40 05/01/19 23:15 78 26 99/51 (67) 99 05/01/19 23:00 76 23 100/53 (69) 99 11/4/19 23:00 100/46 05/01/19 23:00 76 23 100/53 (69) 99 05/01/19 22:45 74 20 96/50 (65) 99 05/01/19 22:30 76 15 99/46 (63) 100 05/01/19 22:15 76 13 100/48 (65) 99 05/01/19 22:00 78 15 98/43 (61) 99 05/01/19 22:00 114/56 05/01/19 21:45 76 16 112/42 (65) 100 05/01/19 21:30 77 8 112/49 (70) 100 05/01/19 21:15 73 17 110/54 (72) 100 05/01/19 21:00 110/54 05/01/19 21:00 73 15 96/58 (71) 100 05/01/19 20:45 75 10 99/57 (71) 99 05/01/19 20:45 62 16 40 05/01/19 20:30 77 14 101/48 (65) 99 05/01/19 20:15 99.0 83 23 104/54 (71) 100 05/01/19 20:00 99.0 83 23 104/54 (71) 100 05/01/19 20:00 75 05/01/19 20:00 88/50 05/01/19 20:00 Mechanical Ventilator 40.0 05/01/19 20:00 40.0 40 05/01/19 19:45 93 23 102/67 (79) 100 05/01/19 19:30 93 23 100/60 (73) 100 05/01/19 19:15 93 23 96/67 (77) 100 05/01/19 19:00 99.0 93 23 100/63 (75) 100 05/01/19 19:00 101/64 05/01/19 18:49 90 16 40 05/01/19 18:30 93 23 96/67 (77) 100 05/01/19 18:00 103/46 05/01/19 18:00 84 19 103/46 (65) 100 05/01/19 17:45 85 11 105/52 (69) 100 05/01/19 17:30 86 13 112/48 (69) 100 05/01/19 17:21 88 14 60 05/01/19 17:15 86 12 102/48 (66) 100 05/01/19 17:00 90 14 95/47 (63) 100 05/01/19 17:00 100/46 05/01/19 16:30 90 14 95/47 (63) 100 05/01/19 16:27 92 05/01/19 16:00 98.7 108 17 100/52 (68) 99 05/01/19 16:00 60 05/01/19 16:00 100/52 05/01/19 15:45 105/50 Height (Feet): 5 Height (Inches): 7.00 Weight (Pounds): 114 Objective VS: Tmax 104.2 Gen: NAD. twitching HEENT: ETT CV: RRR Resp: RRR. coarse. no wheezes Abd: soft. nondistended. normoactive Bs+ Neuro: not awake Microbiology Date/Time Source Procedure Growth Status 05/01/19 10:15 Urine,Clean Catch Urine Culture - Preliminary Resulted 05/01/19 10:15 Rectal Mucosa Received Laboratory Tests Test 05/02/19 04:45 05/02/19 07:16 05/02/19 09:12 05/02/19 11:20 White Blood Count 10.0 K/UL (4.8-10.8) Red Blood Count 2.63 M/UL (4.20-5.40) L Hemoglobin 7.8 G/DL (12.0-16.0) #L Hematocrit 24.8 % (37.0-47.0) #L Mean Corpuscular Volume 94 FL (80-99) Mean Corpuscular Hemoglobin 29.7 PG (27.0-31.0) Mean Corpuscular Hemoglobin Concent 31.5 G/DL (32.0-36.0) L Red Cell Distribution Width 16.4 % (11.6-14.8) H Platelet Count 102 K/UL (150-450) L Mean Platelet Volume 10.4 FL (6.5-10.1) H Neutrophils (%) (Auto) % (45.0-75.0) Lymphocytes (%) (Auto) % (20.0-45.0) Monocytes (%) (Auto) % (1.0-10.0) Eosinophils (%) (Auto) % (0.0-3.0) Basophils (%) (Auto) % (0.0-2.0) Differential Total Cells Counted 100 Neutrophils % (Manual) 92 % (45-75) H Lymphocytes % (Manual) 7 % (20-45) L Monocytes % (Manual) 1 % (1-10) Eosinophils % (Manual) 0 % (0-3) Basophils % (Manual) 0 % (0-2) Band Neutrophils 0 % (0-8) Platelet Estimate Decreased L Platelet Morphology Normal Sodium Level 148 MMOL/L (136-145) #H Potassium Level 2.9 MMOL/L (3.5-5.1) L Chloride Level 114 MMOL/L (98-107) H Carbon Dioxide Level 22 MMOL/L (21-32) Anion Gap 12 mmol/L (5-15) Blood Urea Nitrogen 60 mg/dL (7-18) H Creatinine 1.8 MG/DL (0.55-1.30) H Estimat Glomerular Filtration Rate mL/min (>60) Glucose Level 503 MG/DL (74-106) #*H Hemoglobin A1c 6.4 % (4.3-6.0) H Lactic Acid Level 2.40 mmol/L (0.4-2.0) H 3.30 mmol/L (0.66-2.22) H 3.80 mmol/L (0.4-2.0) H Calcium Level 10.7 MG/DL (8.5-10.1) H Phosphorus Level 2.1 MG/DL (2.5-4.9) L Magnesium Level 1.6 MG/DL (1.8-2.4) L Iron Level 9 ug/dL (50-175) L Total Iron Binding Capacity 97 ug/dL (250-450) L Percent Iron Saturation 9 % (15-50) L Unsaturated Iron Binding 88 ug/dL (112-346) L Ferritin 1603 NG/ML (8-388) H Total Bilirubin 0.6 MG/DL (0.2-1.0) Gamma Glutamyl Transpeptidase 63 U/L (5-85) Aspartate Amino Transf (AST/SGOT) 13 U/L (15-37) L Alanine Aminotransferase (ALT/SGPT) 30 U/L (12-78) Alkaline Phosphatase 106 U/L (46-116) Ammonia 21 umol/L (11-32) Total Creatine Kinase 29 U/L (26-308) Troponin I 0.143 ng/mL (0.000-0.056) C-Reactive Protein, Quantitative 36.0 mg/dL (0.00-0.90) H Pro-B-Type Natriuretic Peptide 1789 pg/mL (0-125) H Total Protein 4.7 G/DL (6.4-8.2) L Albumin 1.5 G/DL (3.4-5.0) L Globulin 3.2 g/dL Albumin/Globulin Ratio 0.5 (1.0-2.7) L Triglycerides Level 99 MG/DL (30-150) Cholesterol Level 96 MG/DL (< 200) LDL Cholesterol 50 mg/dL (<100) HDL Cholesterol 22 MG/DL (40-60) L Cholesterol/HDL Ratio 4.4 (3.3-4.4) Vitamin B12 Level 1138 PG/ML (193-986) H Folate 23.3 NG/ML (8.6-58.9) Thyroid Stimulating Hormone (TSH) 0.496 uiU/mL (0.358-3.740) Random Vancomycin Level 12.8 ug/mL Arterial Blood pH 7.484 (7.350-7.450) Arterial Blood Partial Pressure CO2 28.6 mmHg (35.0-45.0) L Arterial Blood Partial Pressure O2 110.6 mmHg (75.0-100.0) H Arterial Blood HCO3 21.0 mmol/L (22.0-26.0) L Arterial Blood Oxygen Saturation 97.6 % (95-100) Arterial Blood Base Excess -1.9 (-2-2) Silas Test Positive Current Medications Medications (Trade) Dose Ordered Sig/Vane Route PRN Reason Start Time Stop Time Status Last Admin Dose Admin Acetaminophen (Tylenol) 650 mg Q4H PRN ORAL fever 05/01/19 12:45 05/31/19 12:44 Albuterol/ Ipratropium (Albuterol/ Ipratropium) 3 ml Q4H PRN HHN Shortness of Breath 05/01/19 12:45 05/06/19 12:44 Amikacin Protocol (Amikacin pharmacy to dose) 1 ea DAILY PRN MISC . 05/01/19 12:45 05/31/19 12:44 Amikacin Sulfate 500 mg/Sodium Chloride 112 ml @ 112 mls/hr Q24H IV 05/01/19 18:00 05/08/19 17:59 05/01/19 18:04 Chlorhexidine Gluconate (Shanice-Hex 2%) 1 applic DAILY@1999 TOPIC 05/01/19 20:00 05/31/19 19:59 05/01/19 19:48 Dextrose (Dextrose 50%) 25 ml Q30M PRN IV Hypoglycemia 05/02/19 06:30 06/01/19 06:29 Dextrose (Dextrose 50%) 50 ml Q30M PRN IV Hypoglycemia 05/02/19 06:30 06/01/19 06:29 Ertapenem 0.5 gm/ Sodium Chloride 55 ml @ 110 mls/hr Q24H IV 05/01/19 21:00 05/06/19 20:59 05/01/19 21:15 Heparin Sodium (Porcine) (Heparin 5000 units/ml) 5,000 units EVERY 12 HOURS SUBQ 05/01/19 21:00 05/31/19 20:59 05/01/19 21:17 Insulin Aspart (NovoLOG) EVERY 6 HOURS SUBQ 05/02/19 07:30 06/01/19 07:29 05/02/19 12:15 Lorazepam (Ativan 2mg/ml 1ml) 2 mg Q2H PRN IV For Anxiety 05/01/19 12:45 05/08/19 12:44 05/02/19 11:48 Lorazepam (Ativan) 0.5 mg Q6H PRN ORAL For Anxiety 05/02/19 07:30 05/09/19 07:29 Morphine Sulfate (Morphine Sulfate) 4 mg Q4H PRN IVP Severe Pain (Pain Scale 7-10) 05/01/19 12:45 05/08/19 12:44 Norepinephrine Bitartrate 4 mg/ Dextrose 254 ml @ 0 mls/hr Q24H IV 05/01/19 12:45 05/31/19 12:44 05/01/19 15:45 Ondansetron HCl (Zofran) 4 mg Q6H PRN IVP Nausea & Vomiting 05/01/19 12:45 05/31/19 12:44 Pantoprazole (Protonix) 40 mg Q12HR IV 05/01/19 21:00 06/01/19 08:59 05/02/19 08:29 Potassium Phosphate 20 mm/ Sodium Chloride 281.6667 ml @ 46.944 m... ONCE ONCE IV 05/02/19 11:00 05/02/19 16:59 05/02/19 11:02 Risperidone (RisperDAL) 0.25 mg QHS PRN GT Agitation 05/02/19 07:30 06/01/19 07:29 Sodium Chloride 1,000 ml @ 75 mls/hr [id number] IV 05/02/19 10:39 06/01/19 10:38 05/02/19 11:02 Vancomycin HCl (Vanco rx to dose) 1 ea DAILY PRN MISC . 05/01/19 12:45 05/31/19 12:44 Jennifer Palm MD May 02, 2019 15:46
--- NOTE | 2019-05-02 16:30 | NUR ---
NURSE NOTES: Pt remains on Levophed at 4mcg/min to maintain SBP above 90. Pt remains afebrile at 98.4F axillary. Free water is infusing via GT per MD order. Hilario continues to drain 30ml hourly yellow urine. Pt was repositioned.
--- NOTE | 2019-05-02 18:00 | NUR ---
NURSE NOTES: Pt had BM, dark greenish/brown, pasty. Pt was cleaned, gown/bed linens were changed, dressing was changed. Pt was repositioned with lower extremities elevated on pillows. Oral care was done.
[2019-05-02] MEDS ORDERED: MILK OF MA400 MG/51 GT (18:05)
[2019-05-02] MEDS ORDERED: ZINC SULFATE220 M1 GT (18:05)
[2019-05-02] MEDS ORDERED: DUONEB 0.5-3(2.53 ML HHN (18:05)
[2019-05-02] MEDS: Amikacin 500 MG in NS 110 ML IV SCH (18:11)
--- NOTE | 2019-05-02 19:00 | Consultation ---
DATE OF CONSULTATION: 05/02/2019 HISTORY OF PRESENT ILLNESS: The patient is a 78-year-old female patient who was admitted to the hospital. The reason why she came into the hospital is because she has septic shock, dehydration. She has a history of respiratory failure on BiPAP, currently in the ICU. She also has a history of pulmonary congestion, septic shock, dehydration, hypertension, respiratory failure, pneumonia. She has significant altered mental status, confusion, decline in cognition below baseline, that is why her attending physician has requested daily psychiatric consultation. She has altered mental status and confusion. I initially saw this patient at [facility], following the patient here as well, so I was asked to follow the patient here in the hospital as well. Again, the patient does have a history of altered mental status and confusion, and status post alcohol and drug use as well. There has been a history of mood lability and agitation as well, that is why daily psychiatric consultation requested. She also has overlying diagnosis of paranoid schizophrenia, normally taking Zyprexa 5 mg per G-tube daily as well as Risperdal 1 mg per G-tube daily. She does have a history of psychomotor agitation, irritability. PAST MEDICAL HISTORY: She has acute renal injury, COPD, hypertension, diabetes, non ST-segment elevated myocardial infarction, acute respiratory failure. ALLERGIES: No known drug allergies. MEDICATIONS: At [facility], she was on Risperdal twice a day and at that time . FAMILY PSYCHIATRIC HISTORY: Denies. PAIN ASSESSMENT: 0/10. DEVELOPMENTAL PROBLEMS: Denies. SUBSTANCE ABUSE HISTORY: No history of any drug or alcohol use in the past. SOCIAL HISTORY: The patient currently lives in [facility]. . Financially supported by [employer] and Medicare. STRENGTHS: She is motivated to get better and has a place to live. WEAKNESSES: She is impulsive. Minimal support system. MENTAL STATUS EXAMINATION: This is a 78-year-old female. Appearance is disheveled. Attitude, irritable and agitated. Affect flat. Intellect poor because she does not know current events, does not know last four presidents. Mood, depressed and anxious. Motor activity, psychomotor retardation. Attention span is poor because she cannot do serial sevens or spell world backwards. Orientation x1, person, not to place, time, and situation. Speech, unable to communicate verbally. Thought process, disorganized and illogical. Thought content, some paranoia. Perception is poor because of paranoia. Abstract reasoning is poor because she does not understand proverbs, only has concrete thinking. Insight is poor because she does not recognize her medical or psychiatric condition. Judgment is poor because she cannot clearly make medical decisions for herself. No signs of any suicidal or homicidal ideations, but short-term memory 0/3 of a 3-word recall, so poor short-term and long-term memory is poor because she cannot recall long-term events in her life at this time. DIAGNOSES: Major depressive disorder, severe, recurrent with psychotic features, rule out dementia with psychosis. PLAN: We will start this patient on a psychotropic medication regimen consisting of Risperdal. We will start her back on Risperdal at a dose of 0.25 mg per G-tube at bedtime to help her with mood lability and stabilize her mood and . In addition to that, also I am going to treat her with a medication regimen of Ativan 0.5 mg every 6 hours p.r.n. anxiety and agitation. She will continue to be followed by Psychiatry throughout hospital course. Chart reviewed and discussed with staff. Seen and assessed at bedside. Twenty minutes of behavioral management provided. I would like to thank, Dr. Cosme Chong, for this interesting consultation. Kristen Rodgers M.D. DR: eWnceslao JOB#: [id number] CC:
--- NOTE | 2019-05-02 19:30 | NUR ---
NURSE NOTES: Received pt with eyes close but easily arousable to tactile stimulation. Orally intubated on ac mode , bilateral soft wrist restraint on for safety to avoid self extubation, SR on the monitor with occ. PACs and PVCs . BP labile , On Levophed drip at 1 mcg/min as well as 1/2NS at 75ml/hr. All IVF been infusing to COURTNEY PICC line. Site with drsg dry and intact. Hilario to gravity with vlad yellow urine approximately 40-50 ml/hr. Hilario cath care done. Also pt has pressure sores to various areas pls see pictures. All were covered with Optifoam drsg dry and intact. Will continue to monitor.
--- NOTE | 2019-05-02 19:30 | NUR ---
HAND-OFF: Report given to Felicia DUNN. Endorsed plan of care.
--- NOTE | 2019-05-02 20:00 | NUR ---
NURSE NOTES: Turned q 2hrs prn with good skin care done. Oral care done as well.
[2019-05-02] MEDS: Dyna-Hex 2% Top Sol 2oz TOPIC SCH (20:03)
[2019-05-02] MEDS: Ertapenem 0.5 GM in NS 55 ML IV SCH (21:03)
--- NOTE | 2019-05-02 21:05 | NUR ---
NURSE NOTES: Heparin subcut not given due to trending down platelet and low Hgb/HCT.
--- NOTE | 2019-05-02 21:45 | History and Physical Report ---
DATE OF ADMISSION: 05/01/2019 CONSULTANTS: 1. Yancy Lai M.D. 2. Martin Sarmiento M.D. 3. Fox Ho M.D. 4. Frankie Dominique M.D. CHIEF COMPLAINT: Respiratory failure, sepsis, and shock. BRIEF HISTORY: This is a 78-year-old female from [facility], presented with the above-mentioned diagnosis, currently intubated, sedated, and lethargic in the ICU. REVIEW OF SYSTEMS: Unavailable. PAST MEDICAL HISTORY: Anemia, chronic obstructive pulmonary disease, hypertension, diabetes, schizophrenia, and ODALYS. PAST SURGICAL HISTORY: G-tube. MEDICATIONS: Include potassium, intravenous fluid, vancomycin, Risperdal, lorazepam, ertapenem, pantoprazole, chlorhexidine, albuterol, morphine, Zofran, and norepinephrine. ALLERGIES: Denies. SOCIAL HISTORY: Unable to obtain secondary to the patient's condition. PHYSICAL EXAMINATION: GENERAL: Intubated, sedated, lethargic in the intensive care unit, nonverbal. VITAL SIGNS: Temperature is 98 degrees, pulse 76, respirations 16, and blood pressure 90/48. CARDIOVASCULAR: No murmurs. LUNGS: Poor air exchange. ABDOMEN: Bowel sounds distant. EXTREMITIES: No cyanosis or edema. NEUROLOGIC: The patient is flaccid in bed, not following directions. LABORATORY AND DIAGNOSTIC DATA: Labs at this time show H and H are 7.8 and 24 and platelets 102,000, otherwise normal. BMP show hemoglobin A1c 6.4. Troponin 0.143. BNP is 179. Urinalysis show 3+ leukocyte esterase. ASSESSMENT: 1. Respiratory failure. 2. UTI. 3. Sepsis. 4. Shock. 5. Elevated troponin. 6. Anemia. 7. COPD. 8. Hypertension. 9. Diabetes. 10. Schizophrenia. 11. ODALYS. PLAN: 1. Vent per Pulmonary. 2. Antibiotics per Infectious Disease. 3. Blood pressure and blood sugar control. 4. Transfuse p.r.n. 5. Dietary followup. 6. PT and dietary evaluation. 7. CBC and BMP in the morning. Cosme Chong D.O. DR: ADAM JOB#: [id number] CC:
--- NOTE | 2019-05-02 22:15 | Consultation ---
DATE OF CONSULTATION: PSYCHOTHERAPY CONSULTATION PROGRESS NOTE CONSULTING PHYSICIAN: Neris Wright PsyD. TREATING ATTENDING: Cosme Chong D.O. SUBJECTIVE: The patient is a 78-year-old female patient. At this time, the patient has been very disorganized, confused, , significant amount of confusion . The patient at this time is altered in her mental status, confused and agitated. The patient was brought into the hospital for respiratory failure as well as psychotherapy services for poor mental status as well as altered mental status. The patient is confused, disorganized. Significant amount of information was provided through records and nursing as the patient at this time is a poor historian. Apparently, the patient patient has been extremely agitated and restless attempting to pull out her intubation tube and has been confused. PAST MEDICAL HISTORY: Hypertension, COPD. ALLERGIES: No known drug allergies. SUBSTANCE ABUSE HISTORY: There is no indication of alcohol use, illicit substance use, or smoking cigarettes. PSYCHIATRIC HISTORY: There is indication of psychiatric history for this patient at this time. SOCIAL HISTORY: The patient is a 78-year-old single female patient from [facility]. Financially sustained through [employer]. MENTAL STATUS EXAMINATION: The patient is alert and oriented to place. Mood is anxious. Affect is blunted. Thought process, the patient has poor attention and concentration. Poor insight, judgment, and impulse control. DIAGNOSIS: Generalized anxiety disorder. I assessed this patient. The patient is a poor historian, very confused and disorganized. I provided the patient with reality orientation. She is confused and disoriented, oriented to person, place, time, and situation. Plan is to maintain medication compliance. This clinician has reassessed the . Neris Wright PsyD. DR: Candi JOB#: [id number] CC:
[2019-05-03] VITALS (42 sets, daily range): BP systolic 92–125; BP diastolic 40–81
--- NOTE | 2019-05-03 00:01 | NUR ---
NURSE NOTES: Pt had grayish blackish soft stool - cleaned up pt.
--- NOTE | 2019-05-03 00:02 | NUR ---
NURSE NOTES: Accucheck 139- Covered with 3 units Nov subcut. RT thigh.
--- NOTE | 2019-05-03 00:54 | NUR ---
HAND-OFF: Report given to Aravind DUNN for continuity of care..
--- NOTE | 2019-05-03 01:00 | NUR ---
NURSE NOTES: SBAR received from Felicia Felix RN. Patient is non-verbal, eyes closed, does provided facial frowning to painful stimulus. Patient is somewhat agitated and moves lower extremities. Patient has ETT 7.5 and 19cm at lower lip line. AC 16/500tv/30%FiO2/5peep. Currently patient is on Levophed at 1mcg/min via COURTNEY PICC line and has 1/2Ns at 75ml/hr. Dressing is dry and intact. Patient has GT that has free water running at 50ml/hr. wounds noted, see WCP. Bilateral soft wrist restraints, pulses noted, skin is intact. etCo2 monitor noted. Safety measures are in place, ventilator plugged into red socket. bed alarm is on and bed in lowest position. No distress at this time. Will cotninue to monitor.
--- NOTE | 2019-05-03 02:00 | NUR ---
NURSE NOTES: Held Levophed gtt. BP pressure stabilizing. MAP > 60. Repositioned patient and oral care given.
--- NOTE | 2019-05-03 04:00 | NUR ---
NURSE NOTES: Patient cleaned, patient has Normal BM. Soft with formed stool. blood drawn peripherally and sent to lab. Levophed remains off. Patient remains slightly agitated, diversional activities performed, not successful. BP remains stable, patient remains afebrile. no acute distress at this time. Will continue to monitor.
[2019-05-03] MEDS: NovoLOG Insulin Flexpen SUBQ SCH ×3 (05:20→18:00)
[2019-05-03 05:32] LABS: ALANINE AMINOTRANSFERASE 31 U/L (12-78); ALBUMIN 1.9 G/DL (3.4-5.0); ALBUMIN/GLOBULIN RATIO 0.7 (1.0-2.7); ALKALINE PHOSPHATASE 99 U/L (46-116); ANION GAP 9 mmol/L (5-15); ASPARTATE AMINO TRANSFERASE 16 U/L (15-37); BLOOD UREA NITROGEN 45 mg/dL (7-18); CALCIUM 11.1 MG/DL (8.5-10.1); CARBON DIOXIDE 23 MMOL/L (21-32); CHLORIDE 111 MMOL/L (98-107); CREATININE 1.3 MG/DL (0.55-1.30); PHOSPHORUS 2.5 MG/DL (2.5-4.9); POTASSIUM 3.5 MMOL/L (3.5-5.1); SODIUM 143 MMOL/L (136-145)
[2019-05-03 05:35] LABS: HEMATOCRIT 24.1 % (37.0-47.0); HEMOGLOBIN 7.8 G/DL (12.0-16.0); MEAN CORPUSCULAR VOLUME 91 FL (80-99); PLATELET COUNT 104 K/UL (150-450); RED BLOOD COUNT 2.66 M/UL (4.20-5.40); WHITE BLOOD COUNT 13.9 K/UL (4.8-10.8)
--- NOTE | 2019-05-03 06:00 | NUR ---
NURSE NOTES: Repositioned and given oral care. Patients remains off pressors, BP has been stable. HR NSR in the 70s. Spo2 100%. no acute distress at this time. Will continue to monitor.
--- NOTE | 2019-05-03 06:50 | NUR ---
RESPIRATORY NOTE: Received pt on ordered vent settings. Pt airway is patent and secured. Suctioned pt prn. No resp distress noted. Vent alarms are on and audible. Vent is plugged into red outlet. Will monitor pt progress.
--- NOTE | 2019-05-03 07:50 | Cardiology Report ---
APPROVED REPORT EXAM: Two-dimensional and M-mode echocardiogram with Doppler and color Doppler. INDICATION LV function M-Mode DIMENSIONS IVSd1.2 (0.7-1.1cm)Left Atrium (MM)2.1 (1.6-4.0cm) LVDd3.4 (3.5-5.6cm)Aortic Root3.0 (2.0-3.7cm) PWd1.0 (0.7-1.1cm)Aortic Cusp Exc.1.6 (1.5-2.0cm) LVDs1.5 (2.5-4.0cm) PWs1.5 cm Technically difficult study due to poor acoustical windows and pt on ventilator. Normal left ventricular chamber size, systolic function and wall motion to extent visualized. Left ventricular ejection fraction estimated to be 65 %. Study quality precludes accurate assessment of regional wall motion. Mild left ventricular hypertrophy. No evidence of pericardial effusion. All other cardiac chamber sizes are within normal limits. Focal aortic valve sclerosis with adequate cusp excursion. Thickened mitral valve leaflets with normal excursion. Mitral annulus and aortic root calcification. Pulmonic valve not well visualized. Normal tricuspid valve structure. IVC at normal size with physiologic collapse. A color flow and spectral Doppler study was performed and revealed: Trace mitral regurgitation. Mitral diastolic velocities suggest reduced left ventricular relaxation c/w mild LV diastolic dysfunction (Grade I ). Trace tricuspid regurgitation. Tricuspid systolic velocities suggests peak right ventricular systolic pressure of 22 mmHg
--- NOTE | 2019-05-03 08:00 | NUR ---
NURSE NOTES: Received change of shift report from Aravind DUNN. Pt is asleep, awakens to touch, withdraws to pain, is restless. Pt is orally intubated, ETT 7.5 at 19cm left lipline with vent settings AC16, VT500, Peep 5.0, FIO2 30 at 100% O2Sat. Lung sounds are diminished. telemetry monitor displays NSR with heart rate in the 80's. Pt has left upper arm double lumen PICC, and left wrist peripheral IV access, #18G, with IV fluid infusing 0.45NS at 75ml/hour. Temp is 99F axillary. Weak peripheral pulses are present. Pt has GT, with free flow water, currently infusing at 50ml/hour per MD order. Abdomen is round, soft, nontender to touch with hypoactive bowel sounds. Hilario catheter is in place, draining cloudy/yellow urine. Skin has unstageble sacral wound, left heel/ankle erythema/DTI, covered with optifoam dressings, dry/intact. Head of bed is at 30 degrees, bed locked, in lowest position, three side rails up, with call light within reach. Bilateral soft wrist restraints are in place to prevent self-extubation.
[2019-05-03] MEDS ORDERED: Pamidronate Disodium Inj 90 MG in Sodium Chloride 550 ML IVPB ONE (09:00)
[2019-05-03] MEDS: Heparin 5000 units/ml inj SUBQ SCH ×2 (09:00→20:21)
--- NOTE | 2019-05-03 10:00 | NUR ---
NURSE NOTES: AM meds were administered. RT at bedside. Pt not awake/stable enough to attempt weaning off AC vent settings today. Pt as repositioned. Oral care was done.
--- NOTE | 2019-05-03 10:07 | General Progress Note ---
Assessment/Plan Problem List: (1) Acute respiratory failure ICD Codes: J96.00 - Acute respiratory failure, unspecified whether with hypoxia or hypercapnia SNOMED: 05949617 (2) Septic shock ICD Codes: A41.9 - Sepsis, unspecified organism; R65.21 - Severe sepsis with septic shock SNOMED: 56780920, 2761986 (3) Diabetes mellitus ICD Codes: E11.9 - Type 2 diabetes mellitus without complications SNOMED: 91228146 (4) Hypertension ICD Codes: I10 - Essential (primary) hypertension SNOMED: 77201943 (5) COPD (chronic obstructive pulmonary disease) ICD Codes: J44.9 - Chronic obstructive pulmonary disease, unspecified SNOMED: 08514982 (6) Anemia ICD Codes: D64.9 - Anemia, unspecified SNOMED: 837657673 (7) Schizophrenia ICD Codes: F20.9 - Schizophrenia, unspecified SNOMED: 90530392 Status: unchanged Assessment/Plan: vent abx bp bs control cbc bmp am Subjective Constitutional: Reports: weakness Allergies: Coded Allergies: No Known Allergies (Unverified , 05/01/19) All Systems: reviewed and negative except above Subjective intubated sedated in icu Objective Last 24 Hour Vital Signs Date Time Temp Pulse Resp B/P (MAP) Pulse Ox O2 Delivery O2 Flow Rate FiO2 05/03/19 08:51 79 16 30 05/03/19 06:50 77 19 30 05/03/19 06:30 72 16 95/45 (62) 99 05/03/19 06:00 76 17 112/45 (67) 98 05/03/19 05:30 77 19 30 05/03/19 05:00 98.9 88 17 110/47 (68) 100 05/03/19 04:30 70 16 97/54 (68) 100 05/03/19 04:00 80 05/03/19 04:00 Mechanical Ventilator 05/03/19 04:00 30 05/03/19 04:00 72 18 114/47 (69) 100 05/03/19 03:30 76 18 113/75 (88) 100 05/03/19 03:29 78 18 30 05/03/19 03:00 78 20 119/55 (76) 100 05/03/19 02:30 69 17 112/50 (70) 100 05/03/19 02:00 111/49 11/6/19 02:00 68 16 111/46 (67) 100 05/03/19 01:30 66 16 112/46 (68) 99 05/03/19 01:06 81 17 30 05/03/19 01:00 109/49 05/03/19 01:00 67 16 95/42 (59) 99 05/03/19 00:30 72 17 94/41 (58) 99 05/03/19 00:01 103/56 05/03/19 00:00 30 05/03/19 00:00 98.7 88 19 103/56 (72) 93 05/03/19 00:00 76 05/03/19 00:00 Mechanical Ventilator 40.0 05/02/19 23:30 82 19 115/35 (61) 98 05/02/19 23:18 75 17 30 05/02/19 23:00 73 17 100/43 (62) 99 05/02/19 23:00 75 17 115/66 (82) 99 05/02/19 23:00 115/35 05/02/19 22:30 73 17 100/43 (62) 99 05/02/19 22:00 72 17 106/44 (64) 99 05/02/19 22:00 100/43 05/02/19 21:30 72 17 103/46 (65) 99 05/02/19 21:03 106/44 05/02/19 21:00 81 16 30 05/02/19 21:00 71 16 95/64 (74) 99 05/02/19 20:30 78 18 105/46 (65) 98 05/02/19 20:00 30 05/02/19 20:00 94/48 05/02/19 20:00 76 05/02/19 20:00 Mechanical Ventilator 40.0 05/02/19 20:00 98.6 76 18 94/48 (63) 99 05/02/19 19:06 71 17 30 05/02/19 19:00 80 18 133/103 (113) 97 05/02/19 19:00 120/60 05/02/19 18:30 79 19 117/75 (89) 99 05/02/19 18:00 78 26 121/54 (76) 98 05/02/19 18:00 112/60 05/02/19 17:30 78 20 30 11/5/19 17:30 81 18 124/76 (92) 100 05/02/19 17:00 75 16 112/50 (70) 100 05/02/19 17:00 110/60 05/02/19 16:30 78 17 113/49 (70) 99 05/02/19 16:00 98.4 77 15 109/52 (71) 100 05/02/19 16:00 108/58 05/02/19 16:00 80 05/02/19 16:00 40 05/02/19 16:00 Mechanical Ventilator 40.0 05/02/19 15:30 78 19 132/69 (90) 100 05/02/19 15:00 83 20 30 05/02/19 15:00 98/58 05/02/19 15:00 75 16 107/50 (69) 100 05/02/19 14:00 76 16 98/48 (65) 99 05/02/19 14:00 93/46 05/02/19 13:30 77 16 96/52 (67) 99 05/02/19 13:26 81 17 30 05/02/19 13:00 101/56 05/02/19 13:00 79 22 98/46 (63) 100 05/02/19 12:00 98.6 87 20 99/42 (61) 99 05/02/19 12:00 98/54 05/02/19 12:00 Mechanical Ventilator 40.0 05/02/19 12:00 80 05/02/19 12:00 40 05/02/19 11:30 89 21 124/57 (79) 100 05/02/19 11:21 79 16 40 05/02/19 11:00 96/54 05/02/19 11:00 81 19 109/83 (92) 98 Intake and Output 05/02/19 05/03/19 19:00 07:00 Intake Total 2670.942 ml 1477.86 ml Output Total 355 ml 470 ml Balance 2315.942 ml 1007.86 ml Intake Oral 350 ml 550 ml IV Total 2320.942 ml 927.86 ml Output Urine Total 355 ml 470 ml # Bowel Movements 2 3 Laboratory Tests 05/02/19 11:20: Lactic Acid Level 3.80H 05/03/19 04:00: Lactic Acid Level 1.00, White Blood Count 13.9H, Red Blood Count 2.66L, Hemoglobin 7.8L, Hematocrit 24.1L, Mean Corpuscular Volume 91, Mean Corpuscular Hemoglobin 29.5, Mean Corpuscular Hemoglobin Concent 32.6, Red Cell Distribution Width 16.0H, Platelet Count 104L, Mean Platelet Volume 7.7, Neutrophils (%) (Auto) , Lymphocytes (%) (Auto) , Monocytes (%) (Auto) , Eosinophils (%) (Auto) , Basophils (%) (Auto) , Sodium Level 143, Potassium Level 3.5, Chloride Level 111H, Carbon Dioxide Level 23, Anion Gap 9, Blood Urea Nitrogen 45H, Creatinine 1.3, Estimat Glomerular Filtration Rate , Glucose Level 139#H, Calcium Level 11.1H, Phosphorus Level 2.5, Magnesium Level 2.3, Total Bilirubin 1.0, Aspartate Amino Transf (AST/SGOT) 16, Alanine Aminotransferase (ALT/SGPT) 31, Alkaline Phosphatase 99, Troponin I 0.099H, Pro- B-Type Natriuretic Peptide 1684H, Total Protein 4.7L, Albumin 1.9L, Globulin 2.8 , Albumin/Globulin Ratio 0.7L Height (Feet): 5 Height (Inches): 7.00 Weight (Pounds): 115 General Appearance: lethargic EENT: normal ENT inspection Neck: normal alignment Cardiovascular: normal peripheral pulses, normal rate, regular rhythm Respiratory/Chest: chest wall non-tender, lungs clear, normal breath sounds Abdomen: normal bowel sounds, non tender, soft Extremities: normal inspection Edema: no edema noted Arm (L), no edema noted Arm (R), no edema noted Leg (L), no edema noted Leg (R), no edema noted Pedal (L), no edema noted Pedal (R), no edema noted Generalized Neurologic: motor weakness Skin: normal pigmentation, warm/dry Cosme Chong DO May 03, 2019 10:07
[2019-05-03] MEDS: Pantoprazole Inj IV SCH ×2 (10:13→20:18)
--- NOTE | 2019-05-03 10:18 | Nephrology Progress Note ---
Assessment/Plan Problem List: (1) Hypercalcemia (2) Septic shock (3) Acute kidney injury (4) Acute respiratory failure (5) Dehydration (6) Anemia Assessment Acute renal failure Dehydration / HyperNatremia / HyperCalcemia Septic Shock Respiratory failure / COPD NSTEMI DM PEG Schizophrenia Anemia Plan Aredia 90 mg IV and Nasal Calcitonin IV fluid change to 1/2 NS K and Phos and Mag supplement as needed monitor renal parameters urine studies anemia au avoid Nephrotoxics Subjective ROS Limited/Unobtainable: Yes Objective Objective Last 24 Hour Vital Signs Date Time Temp Pulse Resp B/P (MAP) Pulse Ox O2 Delivery O2 Flow Rate FiO2 05/03/19 08:51 79 16 30 05/03/19 06:50 77 19 30 05/03/19 06:30 72 16 95/45 (62) 99 05/03/19 06:00 76 17 112/45 (67) 98 05/03/19 05:30 77 19 30 05/03/19 05:00 98.9 88 17 110/47 (68) 100 05/03/19 04:30 70 16 97/54 (68) 100 05/03/19 04:00 80 05/03/19 04:00 Mechanical Ventilator 05/03/19 04:00 30 05/03/19 04:00 72 18 114/47 (69) 100 05/03/19 03:30 76 18 113/75 (88) 100 05/03/19 03:29 78 18 30 05/03/19 03:00 78 20 119/55 (76) 100 05/03/19 02:30 69 17 112/50 (70) 100 05/03/19 02:00 111/49 05/03/19 02:00 68 16 111/46 (67) 100 05/03/19 01:30 66 16 112/46 (68) 99 05/03/19 01:06 81 17 30 05/03/19 01:00 109/49 05/03/19 01:00 67 16 95/42 (59) 99 05/03/19 00:30 72 17 94/41 (58) 99 05/03/19 00:01 103/56 05/03/19 00:00 30 05/03/19 00:00 98.7 88 19 103/56 (72) 93 05/03/19 00:00 76 05/03/19 00:00 Mechanical Ventilator 40.0 05/02/19 23:30 82 19 115/35 (61) 98 05/02/19 23:18 75 17 30 05/02/19 23:00 73 17 100/43 (62) 99 05/02/19 23:00 75 17 115/66 (82) 99 05/02/19 23:00 115/35 05/02/19 22:30 73 17 100/43 (62) 99 05/02/19 22:00 72 17 106/44 (64) 99 05/02/19 22:00 100/43 05/02/19 21:30 72 17 103/46 (65) 99 05/02/19 21:03 106/44 05/02/19 21:00 81 16 30 05/02/19 21:00 71 16 95/64 (74) 99 05/02/19 20:30 78 18 105/46 (65) 98 05/02/19 20:00 30 05/02/19 20:00 94/48 05/02/19 20:00 76 05/02/19 20:00 Mechanical Ventilator 40.0 05/02/19 20:00 98.6 76 18 94/48 (63) 99 05/02/19 19:06 71 17 30 05/02/19 19:00 80 18 133/103 (113) 97 05/02/19 19:00 120/60 05/02/19 18:30 79 19 117/75 (89) 99 05/02/19 18:00 78 26 121/54 (76) 98 05/02/19 18:00 112/60 05/02/19 17:30 78 20 30 05/02/19 17:30 81 18 124/76 (92) 100 05/02/19 17:00 75 16 112/50 (70) 100 05/02/19 17:00 110/60 05/02/19 16:30 78 17 113/49 (70) 99 05/02/19 16:00 98.4 77 15 109/52 (71) 100 05/02/19 16:00 108/58 05/02/19 16:00 80 05/02/19 16:00 40 05/02/19 16:00 Mechanical Ventilator 40.0 05/02/19 15:30 78 19 132/69 (90) 100 05/02/19 15:00 83 20 30 05/02/19 15:00 98/58 05/02/19 15:00 75 16 107/50 (69) 100 05/02/19 14:00 76 16 98/48 (65) 99 05/02/19 14:00 93/46 05/02/19 13:30 77 16 96/52 (67) 99 05/02/19 13:26 81 17 30 05/02/19 13:00 101/56 05/02/19 13:00 79 22 98/46 (63) 100 05/02/19 12:00 98.6 87 20 99/42 (61) 99 05/02/19 12:00 98/54 05/02/19 12:00 Mechanical Ventilator 40.0 05/02/19 12:00 80 05/02/19 12:00 40 05/02/19 11:30 89 21 124/57 (79) 100 05/02/19 11:21 79 16 40 05/02/19 11:00 96/54 05/02/19 11:00 81 19 109/83 (92) 98 Intake and Output 05/02/19 05/03/19 19:00 07:00 Intake Total 2670.942 ml 1477.86 ml Output Total 355 ml 470 ml Balance 2315.942 ml 1007.86 ml Intake Oral 350 ml 550 ml IV Total 2320.942 ml 927.86 ml Output Urine Total 355 ml 470 ml # Bowel Movements 2 3 Laboratory Tests 05/02/19 11:20: Lactic Acid Level 3.80H 05/03/19 04:00: Lactic Acid Level 1.00, White Blood Count 13.9H, Red Blood Count 2.66L, Hemoglobin 7.8L, Hematocrit 24.1L, Mean Corpuscular Volume 91, Mean Corpuscular Hemoglobin 29.5, Mean Corpuscular Hemoglobin Concent 32.6, Red Cell Distribution Width 16.0H, Platelet Count 104L, Mean Platelet Volume 7.7, Neutrophils (%) (Auto) , Lymphocytes (%) (Auto) , Monocytes (%) (Auto) , Eosinophils (%) (Auto) , Basophils (%) (Auto) , Sodium Level 143, Potassium Level 3.5, Chloride Level 111H, Carbon Dioxide Level 23, Anion Gap 9, Blood Urea Nitrogen 45H, Creatinine 1.3, Estimat Glomerular Filtration Rate , Glucose Level 139#H, Calcium Level 11.1H, Phosphorus Level 2.5, Magnesium Level 2.3, Total Bilirubin 1.0, Aspartate Amino Transf (AST/SGOT) 16, Alanine Aminotransferase (ALT/SGPT) 31, Alkaline Phosphatase 99, Troponin I 0.099H, Pro- B-Type Natriuretic Peptide 1684H, Total Protein 4.7L, Albumin 1.9L, Globulin 2.8 , Albumin/Globulin Ratio 0.7L Height (Feet): 5 Height (Inches): 7.00 Weight (Pounds): 115 General Appearance: no apparent distress EENT: other - vented Respiratory/Chest: decreased breath sounds Abdomen: distended Fox Ho MD May 03, 2019 10:18
--- NOTE | 2019-05-03 10:55 | NUR ---
RADIOLOGY DEPT., CHEST X-RAY DONE.-P.DYE
--- NOTE | 2019-05-03 11:38 | NUR ---
W[employer] WIP[employer]DU[employer] WRANGLER 78 YO FEMALE BIBA FROM [facility] TO ER CC SOB RESP FAILURE SI: RESP FAILURE ETT/VENT SUPPORT, ACUTE RENAL FAILURE T. 104.2 HR 155 RR 18 B/P 85/30 AC 14 TV 450 FIO2 100% PEEP 5 NA 158 BUN 82 CR 2.0 ALK PHOS 149 BNP 2130 LACTID ACID 3.40 CXR=Atelectasis of the left lower lobe. Superimposed pneumonia or pleural effusion is not EXCLUDED. IS: IV BOLUS NS X 1 LITER ZOSYN IV SOLU MEDROL IV ETOMIDATE IV ROCURONIUM IV ADMITTED TO ICU @ 1359 ICU STATUS DCP PENDING HOSPITAL STAY
--- NOTE | 2019-05-03 12:00 | NUR ---
NURSE NOTES: Pt was placed on P200 pressure releasing mattress. VS remain stable while pt is off Levophed. IV fluid continues to infuse 0.45NS at 75ml/hour. Pt was cleaned and repositioned with bilateral extremities elevated on pillows. Oral care was done. GT free water continues to infuse at 50ml/hour and urine output via Hilario at an average of 30ml/hourly.
--- NOTE | 2019-05-03 12:00 | Diagnostic Imaging Report ---
Indication: Dyspnea Technique: One view of the chest Comparison: 05/02/2019 Findings: Stable satisfactory positions of endotracheal tube, left arm PICC. Hazy opacities in the right mid and lower lung are probably unchanged. There is a small amount of hazy opacity at the left lung base persisting as well. The heart is normal in size. Allowing for technical differences, findings are overall unchanged Impression: Unchanged, over one day, findings as above.
--- NOTE | 2019-05-03 12:30 | Hematology/Onc Progress Note ---
Assessment/Plan Assessment/Plan # Thrombocytopenia - potential causes multifactorial, evaluate liver and viral etiologies to begin, also could be related to underlying medications patient has received. In this case with septic shock --> Hep panel and HIV ordered --> US abd to evaluate for cirrhosis and hsm ordered --> Peripheral smear ordered to evaluate for blasts /schistocytes --> abx and other meds have been reviewed --> ok for ppx if plt >50k w/ either heparin or lovenox --> Transfuse if Plt < 20k and fever, or if Plt < 10k without fever --> plt trend 164-->102-->104 # Anemia of chronic disease due to underlying chronic medical issues, multifactorial, in this case sepsis --> Anemia workup has been reviewed, no bleeding --> No evidence of hemolysis is noted, peripheral smear has been reviewed. --> Hgb goal >7. Transfuse prn. --> Epogen or iron at this time is not particularly indicated --> Medications have been reviewed --> low threshold for gi evaluation in case has occult + --> bone marrow biopsy is not indicated given the other more likely causes --> hgb trend 11.5-->7.8 # Hypercalcemia --> started on ivf by renal --> Ca trend as needed --> pamidronate given calcitonin # Septic shock --> erta/aamikacin/vanc per id # Acute kidney injury --> per renal # Acute respiratory failure s/p vent --> per pulm # Dysphagia s/p peg # Schizophrenia # Dvt ppx heparins sq The timing of this note does not necessarily reflect the time of the patient was seen. Greatly appreciate consultation. Subjective HEENT: Denies: no symptoms, eye pain, blurred vision, tearing, double vision, ear pain, ear discharge, nose pain, nose congestion, throat pain, throat swelling, mouth pain, mouth swelling, other Allergies: Coded Allergies: No Known Allergies (Unverified , 05/01/19) Subjective 05/03: remains on vent, counts reviewed with rn, on abx, no bleeding Objective Objective Current Medications Medications (Trade) Dose Ordered Sig/Vane Route PRN Reason Start Time Stop Time Status Last Admin Dose Admin Acetaminophen (Tylenol) 650 mg Q4H PRN ORAL fever 05/01/19 12:45 05/31/19 12:44 Albuterol/ Ipratropium (Albuterol/ Ipratropium) 3 ml Q4H PRN HHN Shortness of Breath 05/01/19 12:45 05/06/19 12:44 Amikacin Protocol (Amikacin pharmacy to dose) 1 ea DAILY PRN MISC . 05/01/19 12:45 05/31/19 12:44 Amikacin Sulfate 500 mg/Sodium Chloride 112 ml @ 112 mls/hr Q24H IV 05/01/19 18:00 05/08/19 17:59 05/02/19 18:11 Calcitonin [place] (Miacalcin) 1 sprays DAILY NASAL 05/04/19 09:00 06/03/19 08:59 Chlorhexidine Gluconate (Shanice-Hex 2%) 1 applic DAILY@2000 TOPIC 05/01/19 20:00 05/31/19 19:59 05/02/19 20:03 Dextrose (Dextrose 50%) 25 ml Q30M PRN IV Hypoglycemia 05/02/19 06:30 06/01/19 06:29 Dextrose (Dextrose 50%) 50 ml Q30M PRN IV Hypoglycemia 05/02/19 06:30 06/01/19 06:29 Ertapenem 0.5 gm/ Sodium Chloride 55 ml @ 110 mls/hr Q24H IV 05/01/19 21:00 05/06/19 20:59 05/02/19 21:03 Heparin Sodium (Porcine) (Heparin 5000 units/ml) 5,000 units EVERY 12 HOURS SUBQ 05/01/19 21:00 05/31/19 20:59 05/01/19 21:17 Insulin Aspart (NovoLOG) EVERY 6 HOURS SUBQ 05/02/19 07:30 06/01/19 07:29 05/03/19 05:20 Lorazepam (Ativan 2mg/ml 1ml) 2 mg Q2H PRN IV For Anxiety 05/01/19 12:45 05/08/19 12:44 05/02/19 11:48 Lorazepam (Ativan) 0.5 mg Q6H PRN ORAL For Anxiety 05/02/19 07:30 05/09/19 07:29 Morphine Sulfate (Morphine Sulfate) 4 mg Q4H PRN IVP Severe Pain (Pain Scale 7-10) 05/01/19 12:45 05/08/19 12:44 Norepinephrine Bitartrate 4 mg/ Dextrose 254 ml @ 0 mls/hr Q24H IV 05/01/19 12:45 05/31/19 12:44 05/01/19 15:45 Ondansetron HCl (Zofran) 4 mg Q6H PRN IVP Nausea & Vomiting 05/01/19 12:45 05/31/19 12:44 Pamidronate Disodium 90 mg/ Sodium Chloride 550 ml @ 137.5 mls/ hr ONCE ONCE IVPB 05/03/19 09:00 05/03/19 12:59 05/03/19 10:13 Pantoprazole (Protonix) 40 mg Q12HR IV 05/01/19 21:00 06/01/19 08:59 05/03/19 10:13 Risperidone (RisperDAL) 0.25 mg QHS PRN GT Agitation 05/02/19 07:30 06/01/19 07:29 Sodium Chloride 1,000 ml @ 75 mls/hr [id number] IV 05/02/19 10:39 06/01/19 10:38 05/03/19 00:01 Vancomycin HCl (Vanco rx to dose) 1 ea DAILY PRN MISC . 05/01/19 12:45 05/31/19 12:44 Last 24 Hour Vital Signs Date Time Temp Pulse Resp B/P (MAP) Pulse Ox O2 Delivery O2 Flow Rate FiO2 05/03/19 10:53 81 17 30 05/03/19 10:00 77 16 98/46 (63) 99 05/03/19 09:30 74 16 104/60 (75) 98 05/03/19 09:00 80 15 109/46 (67) 100 05/03/19 08:51 79 16 30 05/03/19 08:30 72 16 100/49 (66) 99 05/03/19 08:00 76 05/03/19 08:00 Mechanical Ventilator 05/03/19 08:00 30 05/03/19 08:00 99.0 77 20 114/55 (74) 95 05/03/19 07:30 68 16 98/45 (62) 99 05/03/19 07:00 74 15 104/45 (64) 100 05/03/19 06:50 77 19 30 05/03/19 06:30 72 16 95/45 (62) 99 05/03/19 06:00 76 17 112/45 (67) 98 05/03/19 05:30 77 19 30 05/03/19 05:00 98.9 88 17 110/47 (68) 100 05/03/19 04:30 70 16 97/54 (68) 100 05/03/19 04:00 80 05/03/19 04:00 Mechanical Ventilator 05/03/19 04:00 30 05/03/19 04:00 72 18 114/47 (69) 100 05/03/19 03:30 76 18 113/75 (88) 100 05/03/19 03:29 78 18 30 05/03/19 03:00 78 20 119/55 (76) 100 05/03/19 02:30 69 17 112/50 (70) 100 05/03/19 02:00 111/49 05/03/19 02:00 68 16 111/46 (67) 100 05/03/19 01:30 66 16 112/46 (68) 99 05/03/19 01:06 81 17 30 05/03/19 01:00 109/49 05/03/19 01:00 67 16 95/42 (59) 99 05/03/19 00:30 72 17 94/41 (58) 99 05/03/19 00:01 103/56 05/03/19 00:00 30 05/03/19 00:00 98.7 88 19 103/56 (72) 93 05/03/19 00:00 76 05/03/19 00:00 Mechanical Ventilator 40.0 05/02/19 23:30 82 19 115/35 (61) 98 05/02/19 23:18 75 17 30 05/02/19 23:00 73 17 100/43 (62) 99 05/02/19 23:00 75 17 115/66 (82) 99 05/02/19 23:00 115/35 05/02/19 22:30 73 17 100/43 (62) 99 05/02/19 22:00 72 17 106/44 (64) 99 05/02/19 22:00 100/43 05/02/19 21:30 72 17 103/46 (65) 99 05/02/19 21:03 106/44 05/02/19 21:00 81 16 30 05/02/19 21:00 71 16 95/64 (74) 99 05/02/19 20:30 78 18 105/46 (65) 98 05/02/19 20:00 30 05/02/19 20:00 94/48 05/02/19 20:00 76 05/02/19 20:00 Mechanical Ventilator 40.0 05/02/19 20:00 98.6 76 18 94/48 (63) 99 05/02/19 19:06 71 17 30 05/02/19 19:00 80 18 133/103 (113) 97 05/02/19 19:00 120/60 05/02/19 18:30 79 19 117/75 (89) 99 05/02/19 18:00 78 26 121/54 (76) 98 05/02/19 18:00 112/60 05/02/19 17:30 78 20 30 05/02/19 17:30 81 18 124/76 (92) 100 05/02/19 17:00 75 16 112/50 (70) 100 05/02/19 17:00 110/60 05/02/19 16:30 78 17 113/49 (70) 99 05/02/19 16:00 98.4 77 15 109/52 (71) 100 05/02/19 16:00 108/58 05/02/19 16:00 80 05/02/19 16:00 40 05/02/19 16:00 Mechanical Ventilator 40.0 05/02/19 15:30 78 19 132/69 (90) 100 05/02/19 15:00 83 20 30 05/02/19 15:00 98/58 05/02/19 15:00 75 16 107/50 (69) 100 05/02/19 14:00 76 16 98/48 (65) 99 05/02/19 14:00 93/46 05/02/19 13:30 77 16 96/52 (67) 99 05/02/19 13:26 81 17 30 05/02/19 13:00 101/56 05/02/19 13:00 79 22 98/46 (63) 100 05/02/19 12:00 98.6 87 20 99/42 (61) 99 05/02/19 12:00 98/54 05/02/19 12:00 Mechanical Ventilator 40.0 05/02/19 12:00 80 05/02/19 12:00 40 05/02/19 11:30 89 21 124/57 (79) 100 05/02/19 11:21 79 16 40 05/02/19 11:00 96/54 05/02/19 11:00 81 19 109/83 (92) 98 05/02/19 10:00 88/58 05/02/19 10:00 78 16 97/47 (64) 100 05/02/19 09:30 76 16 90/61 (71) 99 05/02/19 09:23 75 16 40 05/02/19 09:00 81 16 100/39 (59) 99 05/02/19 08:30 81 17 106/60 (75) 99 05/02/19 08:00 Mechanical Ventilator 40.0 05/02/19 08:00 40 05/02/19 08:00 82 05/02/19 08:00 98.8 85 15 114/46 (68) 99 05/02/19 07:20 95 22 40 05/02/19 07:00 91 19 115/65 (82) 99 05/02/19 06:58 114/76 05/02/19 06:45 98 20 114/76 (89) 100 05/02/19 06:30 92 21 97/76 (83) 99 05/02/19 06:18 103/60 05/02/19 06:15 93 22 103/60 (74) 99 05/02/19 06:00 93 21 119/45 (69) 99 05/02/19 05:45 90 18 123/60 (81) 99 05/02/19 05:30 90 23 120/68 (85) 99 05/02/19 05:15 76 14 104/51 (68) 99 05/02/19 05:00 74 14 97/48 (64) 99 05/02/19 05:00 106/56 05/02/19 04:48 83 14 40 05/02/19 04:45 72 14 101/55 (70) 99 05/02/19 04:30 76 15 102/57 (72) 99 05/02/19 04:15 72 16 105/53 (70) 99 05/02/19 04:00 40 05/02/19 04:00 77 05/02/19 04:00 97.8 77 14 108/55 (72) 99 05/02/19 04:00 105/53 05/02/19 04:00 Mechanical Ventilator 40.0 05/02/19 03:45 76 14 101/48 (65) 99 05/02/19 03:30 83 15 103/52 (69) 99 05/02/19 03:15 90 18 117/53 (74) 99 05/02/19 03:13 89 17 40 05/02/19 03:00 103/56 05/02/19 03:00 92 22 106/60 (75) 100 05/02/19 02:45 93 23 106/58 (74) 97 05/02/19 02:30 97 21 117/85 (96) 98 05/02/19 02:15 90 21 113/53 (73) 99 05/02/19 02:00 93 24 106/46 (66) 99 05/02/19 02:00 106/56 05/02/19 01:45 89 22 110/81 (91) 98 05/02/19 01:30 89 21 105/59 (74) 99 05/02/19 01:16 77 15 40 05/02/19 01:15 85 19 101/51 (68) 99 05/02/19 01:06 119/67 05/02/19 01:00 83 19 119/61 (80) 99 05/02/19 00:45 89 23 98/72 (81) 99 05/02/19 00:30 98.4 84 22 103/84 (90) 99 05/02/19 00:15 85 20 112/47 (68) 99 05/02/19 00:00 40.0 40 05/02/19 00:00 112/47 05/02/19 00:00 83 24 107/83 (91) 98 05/02/19 00:00 Mechanical Ventilator 40.0 05/02/19 00:00 83 05/01/19 23:45 86 24 114/96 (102) 99 05/01/19 23:30 89 19 108/86 (93) 100 05/01/19 23:19 79 15 40 05/01/19 23:15 78 26 99/51 (67) 99 05/01/19 23:00 76 23 100/53 (69) 99 05/01/19 23:00 100/46 05/01/19 23:00 76 23 100/53 (69) 99 05/01/19 22:45 74 20 96/50 (65) 99 05/01/19 22:30 76 15 99/46 (63) 100 05/01/19 22:15 76 13 100/48 (65) 99 05/01/19 22:00 78 15 98/43 (61) 99 05/01/19 22:00 114/56 05/01/19 21:45 76 16 112/42 (65) 100 05/01/19 21:30 77 8 112/49 (70) 100 05/01/19 21:15 73 17 110/54 (72) 100 05/01/19 21:00 110/54 05/01/19 21:00 73 15 96/58 (71) 100 05/01/19 20:45 75 10 99/57 (71) 99 05/01/19 20:45 62 16 40 05/01/19 20:30 77 14 101/48 (65) 99 05/01/19 20:15 99.0 83 23 104/54 (71) 100 05/01/19 20:00 99.0 83 23 104/54 (71) 100 05/01/19 20:00 75 05/01/19 20:00 88/50 05/01/19 20:00 Mechanical Ventilator 40.0 05/01/19 20:00 40.0 40 05/01/19 19:45 93 23 102/67 (79) 100 05/01/19 19:30 93 23 100/60 (73) 100 05/01/19 19:15 93 23 96/67 (77) 100 05/01/19 19:00 99.0 93 23 100/63 (75) 100 05/01/19 19:00 101/64 05/01/19 18:49 90 16 40 05/01/19 18:30 93 23 96/67 (77) 100 05/01/19 18:00 103/46 05/01/19 18:00 84 19 103/46 (65) 100 05/01/19 17:45 85 11 105/52 (69) 100 05/01/19 17:30 86 13 112/48 (69) 100 05/01/19 17:21 88 14 60 05/01/19 17:15 86 12 102/48 (66) 100 05/01/19 17:00 90 14 95/47 (63) 100 05/01/19 17:00 100/46 05/01/19 16:30 90 14 95/47 (63) 100 05/01/19 16:27 92 05/01/19 16:00 98.7 108 17 100/52 (68) 99 05/01/19 16:00 60 05/01/19 16:00 100/52 05/01/19 15:45 105/50 05/01/19 15:30 112 15 60 05/01/19 15:30 114 24 120/50 (73) 98 05/01/19 15:27 Mechanical Ventilator 05/01/19 15:20 120/50 05/01/19 15:00 117 21 97/45 (62) 94 05/01/19 14:27 123 05/01/19 14:20 99.2 120 19 104/45 (64) 94 05/01/19 14:20 104/45 05/01/19 14:20 60 05/01/19 13:58 111 19 95/36 97 Mechanical Ventilator 60 05/01/19 13:54 99.1 111 19 95/36 97 Mechanical Ventilator 60 05/01/19 13:52 99.1 101 19 95/36 97 Mechanical Ventilator 60 05/01/19 13:30 96 19 102/33 100 Mechanical Ventilator 60 05/01/19 13:26 104 14 60 05/01/19 13:00 109 19 97/36 100 Mechanical Ventilator 100 05/01/19 12:45 102/36 Intake and Output 05/02/19 05/03/19 19:00 07:00 Intake Total 2670.942 ml 1527.86 ml Output Total 355 ml 500 ml Balance 2315.942 ml 1027.86 ml Intake Oral 350 ml 600 ml IV Total 2320.942 ml 927.86 ml Output Urine Total 355 ml 500 ml # Bowel Movements 2 3 Labs Test 05/01/19 10:15 05/01/19 12:15 05/01/19 12:35 05/02/19 04:45 White Blood Count 8.0 K/UL (4.8-10.8) 10.0 K/UL (4.8-10.8) Red Blood Count 3.95 M/UL (4.20-5.40) 2.63 M/UL (4.20-5.40) Hemoglobin 11.5 G/DL (12.0-16.0) 7.8 G/DL (12.0-16.0) Hematocrit 36.4 % (37.0-47.0) 24.8 % (37.0-47.0) Mean Corpuscular Volume 92 FL (80-99) 94 FL (80-99) Mean Corpuscular Hemoglobin 29.1 PG (27.0-31.0) 29.7 PG (27.0-31.0) Mean Corpuscular Hemoglobin Concent 31.7 G/DL (32.0-36.0) 31.5 G/DL (32.0-36.0) Red Cell Distribution Width 16.3 % (11.6-14.8) 16.4 % (11.6-14.8) Platelet Count 164 K/UL (150-450) 102 K/UL (150-450) Mean Platelet Volume 7.8 FL (6.5-10.1) 10.4 FL (6.5-10.1) Neutrophils (%) (Auto) % (45.0-75.0) % (45.0-75.0) Lymphocytes (%) (Auto) % (20.0-45.0) % (20.0-45.0) Monocytes (%) (Auto) % (1.0-10.0) % (1.0-10.0) Eosinophils (%) (Auto) % (0.0-3.0) % (0.0-3.0) Basophils (%) (Auto) % (0.0-2.0) % (0.0-2.0) Differential Total Cells Counted 100 100 Neutrophils % (Manual) 84 % (45-75) 92 % (45-75) Lymphocytes % (Manual) 9 % (20-45) 7 % (20-45) Monocytes % (Manual) 7 % (1-10) 1 % (1-10) Eosinophils % (Manual) 0 % (0-3) 0 % (0-3) Basophils % (Manual) 0 % (0-2) 0 % (0-2) Band Neutrophils 0 % (0-8) 0 % (0-8) Platelet Estimate Adequate Decreased Platelet Morphology Normal Normal Urine Color Yellow Urine Appearance Cloudy Urine pH 5 (4.5-8.0) Urine Specific [place] 1.010 (1.005-1.035) Urine Protein 3+ (NEGATIVE) Urine Glucose (UA) Negative (NEGATIVE) Urine Ketones Negative (NEGATIVE) Urine Blood 3+ (NEGATIVE) Urine Nitrite Negative (NEGATIVE) Urine Bilirubin Negative (NEGATIVE) Urine Urobilinogen 1 MG/DL (0.0-1.0) Urine Leukocyte Esterase 3+ (NEGATIVE) Urine RBC 5-10 /HPF (0 - 2) Urine WBC 10-15 /HPF (0 - 2) Urine Squamous Epithelial Cells Few /LPF (NONE/OCC) Urine Amorphous Sediment Few /LPF (NONE) Urine Bacteria Many /HPF (NONE) Urine Yeast Many /HPF (NONE) Urine Eosinophils None (NONE SEEN) Urine Random Sodium 21 mmol/L (20-110) Sodium Level 158 MMOL/L (136-145) 148 MMOL/L (136-145) Potassium Level 3.7 MMOL/L (3.5-5.1) 2.9 MMOL/L (3.5-5.1) Chloride Level 116 MMOL/L (98-107) 114 MMOL/L (98-107) Carbon Dioxide Level 36 MMOL/L (21-32) 22 MMOL/L (21-32) Anion Gap 6 mmol/L (5-15) 12 mmol/L (5-15) Blood Urea Nitrogen 82 mg/dL (7-18) 60 mg/dL (7-18) Creatinine 2.0 MG/DL (0.55-1.30) 1.8 MG/DL (0.55-1.30) Estimat Glomerular Filtration Rate mL/min (>60) mL/min (>60) Glucose Level 117 MG/DL (74-106) 503 MG/DL (74-106) Lactic Acid Level 3.40 mmol/L (0.4-2.0) 1.60 mmol/L (0.66-2.22) 2.40 mmol/L (0.4-2.0) Uric Acid 10.2 MG/DL (2.6-7.2) Calcium Level 12.3 MG/DL (8.5-10.1) 10.7 MG/DL (8.5-10.1) Total Bilirubin 0.9 MG/DL (0.2-1.0) 0.6 MG/DL (0.2-1.0) Aspartate Amino Transf (AST/SGOT) 22 U/L (15-37) 13 U/L (15-37) Alanine Aminotransferase (ALT/SGPT) 46 U/L (12-78) 30 U/L (12-78) Alkaline Phosphatase 149 U/L (46-116) 106 U/L (46-116) Total Creatine Kinase 61 U/L (26-308) 29 U/L (26-308) Troponin I 0.189 ng/mL (0.000-0.056) 0.143 ng/mL (0.000-0.056) Pro-B-Type Natriuretic Peptide 2130 pg/mL (0-125) 1789 pg/mL (0-125) Total Protein 6.1 G/DL (6.4-8.2) 4.7 G/DL (6.4-8.2) Albumin 2.2 G/DL (3.4-5.0) 1.5 G/DL (3.4-5.0) Globulin 3.9 g/dL 3.2 g/dL Albumin/Globulin Ratio 0.6 (1.0-2.7) 0.5 (1.0-2.7) Lipase 69 U/L (73-393) Arterial Blood pH 7.391 (7.350-7.450) Arterial Blood Partial Pressure CO2 51.4 mmHg (35.0-45.0) Arterial Blood Partial Pressure O2 156.6 mmHg (75.0-100.0) Arterial Blood HCO3 30.5 mmol/L (22.0-26.0) Arterial Blood Oxygen Saturation 98.6 % (95-100) Arterial Blood Base Excess 4.8 (-2-2) Silas Test Positive Hemoglobin A1c 6.4 % (4.3-6.0) Phosphorus Level 2.1 MG/DL (2.5-4.9) Magnesium Level 1.6 MG/DL (1.8-2.4) Iron Level 9 ug/dL (50-175) Total Iron Binding Capacity 97 ug/dL (250-450) Percent Iron Saturation 9 % (15-50) Unsaturated Iron Binding 88 ug/dL (112-346) Ferritin 1603 NG/ML (8-388) Gamma Glutamyl Transpeptidase 63 U/L (5-85) Ammonia 21 umol/L (11-32) C-Reactive Protein, Quantitative 36.0 mg/dL (0.00-0.90) Triglycerides Level 99 MG/DL (30-150) Cholesterol Level 96 MG/DL (< 200) LDL Cholesterol 50 mg/dL (<100) HDL Cholesterol 22 MG/DL (40-60) Cholesterol/HDL Ratio 4.4 (3.3-4.4) Vitamin B12 Level 1138 PG/ML (193-986) Folate 23.3 NG/ML (8.6-58.9) Thyroid Stimulating Hormone (TSH) 0.496 uiU/mL (0.358-3.740) Random Vancomycin Level 12.8 ug/mL Test 05/02/19 07:16 05/02/19 09:12 05/02/19 11:20 05/03/19 04:00 Lactic Acid Level 3.30 mmol/L (0.66-2.22) 3.80 mmol/L (0.4-2.0) 1.00 mmol/L (0.4-2.0) Arterial Blood pH 7.484 (7.350-7.450) Arterial Blood Partial Pressure CO2 28.6 mmHg (35.0-45.0) Arterial Blood Partial Pressure O2 110.6 mmHg (75.0-100.0) Arterial Blood HCO3 21.0 mmol/L (22.0-26.0) Arterial Blood Oxygen Saturation 97.6 % (95-100) Arterial Blood Base Excess -1.9 (-2-2) Silas Test Positive White Blood Count 13.9 K/UL (4.8-10.8) Red Blood Count 2.66 M/UL (4.20-5.40) Hemoglobin 7.8 G/DL (12.0-16.0) Hematocrit 24.1 % (37.0-47.0) Mean Corpuscular Volume 91 FL (80-99) Mean Corpuscular Hemoglobin 29.5 PG (27.0-31.0) Mean Corpuscular Hemoglobin Concent 32.6 G/DL (32.0-36.0) Red Cell Distribution Width 16.0 % (11.6-14.8) Platelet Count 104 K/UL (150-450) Mean Platelet Volume 7.7 FL (6.5-10.1) Neutrophils (%) (Auto) % (45.0-75.0) Lymphocytes (%) (Auto) % (20.0-45.0) Monocytes (%) (Auto) % (1.0-10.0) Eosinophils (%) (Auto) % (0.0-3.0) Basophils (%) (Auto) % (0.0-2.0) Sodium Level 143 MMOL/L (136-145) Potassium Level 3.5 MMOL/L (3.5-5.1) Chloride Level 111 MMOL/L (98-107) Carbon Dioxide Level 23 MMOL/L (21-32) Anion Gap 9 mmol/L (5-15) Blood Urea Nitrogen 45 mg/dL (7-18) Creatinine 1.3 MG/DL (0.55-1.30) Estimat Glomerular Filtration Rate mL/min (>60) Glucose Level 139 MG/DL (74-106) Calcium Level 11.1 MG/DL (8.5-10.1) Phosphorus Level 2.5 MG/DL (2.5-4.9) Magnesium Level 2.3 MG/DL (1.8-2.4) Total Bilirubin 1.0 MG/DL (0.2-1.0) Aspartate Amino Transf (AST/SGOT) 16 U/L (15-37) Alanine Aminotransferase (ALT/SGPT) 31 U/L (12-78) Alkaline Phosphatase 99 U/L (46-116) Troponin I 0.099 ng/mL (0.000-0.056) Pro-B-Type Natriuretic Peptide 1684 pg/mL (0-125) Total Protein 4.7 G/DL (6.4-8.2) Albumin 1.9 G/DL (3.4-5.0) Globulin 2.8 g/dL Albumin/Globulin Ratio 0.7 (1.0-2.7) Height (Feet): 5 Height (Inches): 7.00 Weight (Pounds): 115 Objective Gen: Nad Pulm: is vent++ CV: ++ tachy Abd: soft, nt, ++ g tube Ext: 1+ edema noted Bruce Coombs MD May 03, 2019 12:30
--- NOTE | 2019-05-03 13:20 | GI Initial Consult Note ---
History of Present Illness General Date patient seen: May 03, 2019 Time patient seen: 13:14 Reason for Hospitalization: Dyspnea/Respdistress Referring physician: RAYMOND BERNABE Reason for Consultation: GTUBE MANAGEMENT Present Illness HPI GI consulted for anemia, G-tube management. This is a 78-year-old female patient seen in the ICU, intubated currently on pressors. The patient is unable to provide any information at this time, all information obtained from medical record. The patient is G-tube dependent. Is currently n.p.o. G-tube site was examined; clean dry and intact with no noted drainage or erythema present. Home Meds Reported Medications Zinc Sulfate (ZINC SULFATE*) 220 Mg Capsule, 220 MG GT DAILY, CAP 0 Refills 05/02/19 Magnesium Hydroxide* (MILK OF MAGNESIA*) 400 Mg/5 Ml Oral.susp, GT PRN for Constipation, ML 05/02/19 Ipratropium/Albuterol Sulfate (DuoNeb 0.5-3(2.5)mg/3ml) 3 Ml Ampul.neb, 3 ML HHN EVERY 4 HOURS PRN for Shortness of Breath, EA 05/02/19 Pantoprazole* (PROTONIX*) 40 Mg Tablet.dr, 40 MG ORAL DAILY, TAB 05/01/19 Ferrous Sulfate* (FERROUS SULFATE*) 325 Mg Tablet, 325 MG GT DAILY, #30 TAB 0 Refills 05/01/19 Bisacodyl* (DULCOLAX*) 5 Mg Tablet.dr, 10 MG GT DAILY, #10 TAB 0 Refills 05/01/19 Docusate Sodium* (COLACE*) 100 Mg Capsule, 100 MG GT DAILY, CAP 05/01/19 Clonidine Hcl* (CATAPRES*) 0.1 Mg Tablet, 0.1 MG ORAL EVERY 6 HOURS PRN for For High Blood Pressure, TAB 05/01/19 Insulin Regular, Human* (NOVOLIN R*) 100 Unit/1 Ml Vial, 0 SUBQ .SLIDING SCALE, UNITS 05/01/19 Olanzapine* (ZYPREXA*) 5 Mg Tablet, 5 MG GT DAILY, TAB 05/01/19 Ascorbic Acid* (VITAMIN C*) 500 Mg Tablet, 500 MG GT DAILY, #30 TAB 0 Refills 05/01/19 Acetaminophen* (ACETAMINOPHEN 325MG TABLET*) 325 Mg Tablet, 650 MG GT Q4H PRN for Pain Scale (3-5), TAB 05/01/19 Sennosides (SENNA) 8.6 Mg Tablet, 8.6 MG GT, TAB 05/01/19 Risperidone* (RISPERDAL*) 1 Mg Tablet, 1 MG GT DAILY, TAB 05/01/19 Multivitamin Liquid* (MULTI-DELYN*) 237 Ml Liquid, 5 ML GT DAILY, ML 05/01/19 Furosemide* (LASIX*) 40 Mg Tablet, 40 MG GT DAILY, TAB 05/01/19 Glucagon HCl (Glucagon HCl) 1 Mg Vial, 1 MG IJ, VIAL 05/01/19 Prednisone* (PREDNISONE*) 20 Mg Tablet, 40 MG GT BID, TAB 05/01/19 Discontinued Reported Medications Ipratropium Terry 0.5MG/2.5ML (IPRATROPIUM BROMIDE 0.5MG/2.5ML) 0.2 Mg/1 Ml Solution, 0.5 MG HHN Q6H PRN for Shortness of Breath, #28 EA 05/01/19 Albuterol Sulfate (ALBUTEROL SULFATE) 2.5 Mg/0.5 Ml Vial.neb, 2.5 MG IH, VIAL 05/01/19 Med list reviewed/reconciled: Yes Allergies: Coded Allergies: No Known Allergies (Unverified , 05/01/19) Patient History Limited by: medical condition History Provided By: Medical Record [facility] Narrative According to the convalescent facility, history of schizoaffective disorder, dysphagia, generalized muscle weakness, lack of coordination, heart failure, anemia, kidney failure, dementia, hypertension, malnutrition, diabetes mellitus , encephalopathy, chronic obstructive pulmonary disease, gastroesophageal reflux disease, functional quadriplegia, pneumonia, gastrostomy tube failure, cataracts and following depression and anxiety and insomnia. Review of Systems All Other Systems: limited Physical Exam Vital Signs Date Time Temp Pulse Resp B/P (MAP) Pulse Ox O2 Delivery O2 Flow Rate FiO2 05/01/19 09:43 120 18 90/38 (55) 95 Non-Rebreather 15.0 05/01/19 10:00 100 05/01/19 10:17 104.2 Sp02 EP Interpretation: reviewed, normal Labs Laboratory Tests Test 05/03/19 04:00 White Blood Count 13.9 K/UL (4.8-10.8) H Red Blood Count 2.66 M/UL (4.20-5.40) L Hemoglobin 7.8 G/DL (12.0-16.0) L Hematocrit 24.1 % (37.0-47.0) L Mean Corpuscular Volume 91 FL (80-99) Mean Corpuscular Hemoglobin 29.5 PG (27.0-31.0) Mean Corpuscular Hemoglobin Concent 32.6 G/DL (32.0-36.0) Red Cell Distribution Width 16.0 % (11.6-14.8) H Platelet Count 104 K/UL (150-450) L Mean Platelet Volume 7.7 FL (6.5-10.1) Neutrophils (%) (Auto) % (45.0-75.0) Lymphocytes (%) (Auto) % (20.0-45.0) Monocytes (%) (Auto) % (1.0-10.0) Eosinophils (%) (Auto) % (0.0-3.0) Basophils (%) (Auto) % (0.0-2.0) Sodium Level 143 MMOL/L (136-145) Potassium Level 3.5 MMOL/L (3.5-5.1) Chloride Level 111 MMOL/L (98-107) H Carbon Dioxide Level 23 MMOL/L (21-32) Anion Gap 9 mmol/L (5-15) Blood Urea Nitrogen 45 mg/dL (7-18) H Creatinine 1.3 MG/DL (0.55-1.30) Estimat Glomerular Filtration Rate mL/min (>60) Glucose Level 139 MG/DL (74-106) #H Lactic Acid Level 1.00 mmol/L (0.4-2.0) Calcium Level 11.1 MG/DL (8.5-10.1) H Phosphorus Level 2.5 MG/DL (2.5-4.9) Magnesium Level 2.3 MG/DL (1.8-2.4) Total Bilirubin 1.0 MG/DL (0.2-1.0) Aspartate Amino Transf (AST/SGOT) 16 U/L (15-37) Alanine Aminotransferase (ALT/SGPT) 31 U/L (12-78) Alkaline Phosphatase 99 U/L (46-116) Troponin I 0.099 ng/mL (0.000-0.056) Pro-B-Type Natriuretic Peptide 1684 pg/mL (0-125) H Total Protein 4.7 G/DL (6.4-8.2) L Albumin 1.9 G/DL (3.4-5.0) L Globulin 2.8 g/dL Albumin/Globulin Ratio 0.7 (1.0-2.7) L General Appearance: no apparent distress Neck: supple Respiratory: normal breath sounds, no respiratory distress Cardiovascular: normal rate Gastrointestinal: normal inspection, non tender, soft, normal bowel sounds, non -distended, gt Rectal: deferred Genitourinary: no CVA tenderness Skin: normal inspection, normal color, no rash, warm/dry, palpation normal, well hydrated Lymphatic: normal inspection, no adenopathy Current Medications Current Medications Medications (Trade) Dose Ordered Sig/Vane Route PRN Reason Start Time Stop Time Status Last Admin Dose Admin Acetaminophen (Tylenol) 650 mg Q4H PRN ORAL fever 05/01/19 12:45 05/31/19 12:44 Albuterol/ Ipratropium (Albuterol/ Ipratropium) 3 ml Q4H PRN HHN Shortness of Breath 05/01/19 12:45 05/06/19 12:44 Amikacin Protocol (Amikacin pharmacy to dose) 1 ea DAILY PRN MISC . 05/01/19 12:45 05/31/19 12:44 Amikacin Sulfate 500 mg/Sodium Chloride 112 ml @ 112 mls/hr Q24H IV 05/01/19 18:00 05/08/19 17:59 05/02/19 18:11 Calcitonin [place] (Miacalcin) 1 sprays DAILY NASAL 05/04/19 09:00 06/03/19 08:59 Chlorhexidine Gluconate (Shanice-Hex 2%) 1 applic DAILY@2000 TOPIC 05/01/19 20:00 05/31/19 19:59 05/02/19 20:03 Dextrose (Dextrose 50%) 25 ml Q30M PRN IV Hypoglycemia 05/02/19 06:30 06/01/19 06:29 Dextrose (Dextrose 50%) 50 ml Q30M PRN IV Hypoglycemia 05/02/19 06:30 06/01/19 06:29 Ertapenem 0.5 gm/ Sodium Chloride 55 ml @ 110 mls/hr Q24H IV 05/01/19 21:00 05/06/19 20:59 05/02/19 21:03 Heparin Sodium (Porcine) (Heparin 5000 units/ml) 5,000 units EVERY 12 HOURS SUBQ 05/01/19 21:00 05/31/19 20:59 05/01/19 21:17 Insulin Aspart (NovoLOG) EVERY 6 HOURS SUBQ 05/02/19 07:30 06/01/19 07:29 05/03/19 12:44 Lorazepam (Ativan 2mg/ml 1ml) 2 mg Q2H PRN IV For Anxiety 05/01/19 12:45 05/08/19 12:44 05/02/19 11:48 Lorazepam (Ativan) 0.5 mg Q6H PRN ORAL For Anxiety 05/02/19 07:30 05/09/19 07:29 Morphine Sulfate (Morphine Sulfate) 4 mg Q4H PRN IVP Severe Pain (Pain Scale 7-10) 05/01/19 12:45 05/08/19 12:44 Norepinephrine Bitartrate 4 mg/ Dextrose 254 ml @ 0 mls/hr Q24H IV 05/01/19 12:45 05/31/19 12:44 05/01/19 15:45 Ondansetron HCl (Zofran) 4 mg Q6H PRN IVP Nausea & Vomiting 05/01/19 12:45 05/31/19 12:44 Pantoprazole (Protonix) 40 mg Q12HR IV 05/01/19 21:00 06/01/19 08:59 05/03/19 10:13 Risperidone (RisperDAL) 0.25 mg QHS PRN GT Agitation 05/02/19 07:30 06/01/19 07:29 Sodium Chloride 1,000 ml @ 75 mls/hr [id number] IV 05/02/19 10:39 06/01/19 10:38 05/03/19 12:44 Vancomycin HCl (Vanco rx to dose) 1 ea DAILY PRN MISC . 05/01/19 12:45 05/31/19 12:44 GI: Plan Problems: (1) Dehydration (2) Diabetes mellitus (3) Feeding by G-tube (4) Anemia Plan No plans for any GI procedures at this given time given the patient's elevated troponin level and hemodynamic instability. We will send for occult blood stool to evaluate for any GI bleed Monitor H&H, PRN transfusions PPI Okay to start tube feedings per nutrition recommendations Electrolyte correction, increase free water flushes for hypernatremia GT site care daily and as needed We will follow on a daily basis with additional recommendations Discussed with Dr. Lau. Thank you for this patient referral, we will follow. The patient was seen and examined at bedside and all new and available data was reviewed in the patients chart. I agree with the above findings, impression and plan. (Patient seen earlier today. Signature stamp does not reflect patient encounter time.). - [facility] DELIVERY May 03, 2019 13:20
--- NOTE | 2019-05-03 14:54 | Pulmonolgy Critical Care Note ---
Critical Care - Asmt/Plan Problems: (1) Septic shock (2) Acute respiratory failure (3) COPD (chronic obstructive pulmonary disease) (4) Hypernatremia (5) Acute kidney injury (6) Hypertension (7) Diabetes mellitus (8) Feeding by G-tube Respiratory: monitor respiratory rate, adjust FIO2 Cardiac: continue to monitor HR/BP Renal: F/U I&O, check electrolytes Infectious Disease: check cultures Gastrointestinal: continue feedings/current rate Endocrine: check TSH Hematologic: monitor H/H, transfuse if hgb<8.5 Neurologic: keep patient comfortable Affect: PRN ativan Notes Reviewed: social work assistant, renal Discussed with: nurses, consultants, behavioral health case managersenior facilities manager - Objective Last 24 Hour Vital Signs Date Time Temp Pulse Resp B/P (MAP) Pulse Ox O2 Delivery O2 Flow Rate FiO2 05/03/19 14:00 80 16 103/45 (64) 98 05/03/19 13:30 88 19 109/60 (76) 91 05/03/19 13:00 86 17 98/79 (85) 99 05/03/19 12:58 78 18 30 05/03/19 12:00 82 05/03/19 12:00 Mechanical Ventilator 05/03/19 12:00 98.9 76 16 107/81 (90) 99 05/03/19 12:00 30 05/03/19 11:30 80 17 101/45 (63) 98 05/03/19 11:00 75 16 99/45 (63) 99 05/03/19 10:53 81 17 30 05/03/19 10:00 77 16 98/46 (63) 99 05/03/19 09:30 74 16 104/60 (75) 98 05/03/19 09:00 80 15 109/46 (67) 100 05/03/19 08:51 79 16 30 05/03/19 08:30 72 16 100/49 (66) 99 05/03/19 08:00 76 05/03/19 08:00 Mechanical Ventilator 05/03/19 08:00 30 05/03/19 08:00 99.0 77 20 114/55 (74) 95 05/03/19 07:30 68 16 98/45 (62) 99 05/03/19 07:00 74 15 104/45 (64) 100 05/03/19 06:50 77 19 30 05/03/19 06:30 72 16 95/45 (62) 99 05/03/19 06:00 76 17 112/45 (67) 98 05/03/19 05:30 77 19 30 05/03/19 05:00 98.9 88 17 110/47 (68) 100 05/03/19 04:30 70 16 97/54 (68) 100 05/03/19 04:00 80 05/03/19 04:00 Mechanical Ventilator 05/03/19 04:00 30 05/03/19 04:00 72 18 114/47 (69) 100 05/03/19 03:30 76 18 113/75 (88) 100 05/03/19 03:29 78 18 30 05/03/19 03:00 78 20 119/55 (76) 100 05/03/19 02:30 69 17 112/50 (70) 100 05/03/19 02:00 111/49 05/03/19 02:00 68 16 111/46 (67) 100 05/03/19 01:30 66 16 112/46 (68) 99 05/03/19 01:06 81 17 30 05/03/19 01:00 109/49 05/03/19 01:00 67 16 95/42 (59) 99 05/03/19 00:30 72 17 94/41 (58) 99 05/03/19 00:01 103/56 05/03/19 00:00 30 05/03/19 00:00 98.7 88 19 103/56 (72) 93 05/03/19 00:00 76 05/03/19 00:00 Mechanical Ventilator 40.0 05/02/19 23:30 82 19 115/35 (61) 98 05/02/19 23:18 75 17 30 05/02/19 23:00 73 17 100/43 (62) 99 05/02/19 23:00 75 17 115/66 (82) 99 05/02/19 23:00 115/35 05/02/19 22:30 73 17 100/43 (62) 99 05/02/19 22:00 72 17 106/44 (64) 99 05/02/19 22:00 100/43 05/02/19 21:30 72 17 103/46 (65) 99 05/02/19 21:03 106/44 05/02/19 21:00 81 16 30 05/02/19 21:00 71 16 95/64 (74) 99 05/02/19 20:30 78 18 105/46 (65) 98 05/02/19 20:00 30 05/02/19 20:00 94/48 05/02/19 20:00 76 05/02/19 20:00 Mechanical Ventilator 40.0 05/02/19 20:00 98.6 76 18 94/48 (63) 99 05/02/19 19:06 71 17 30 05/02/19 19:00 80 18 133/103 (113) 97 05/02/19 19:00 120/60 05/02/19 18:30 79 19 117/75 (89) 99 05/02/19 18:00 78 26 121/54 (76) 98 05/02/19 18:00 112/60 05/02/19 17:30 78 20 30 05/02/19 17:30 81 18 124/76 (92) 100 05/02/19 17:00 75 16 112/50 (70) 100 05/02/19 17:00 110/60 05/02/19 16:30 78 17 113/49 (70) 99 05/02/19 16:00 98.4 77 15 109/52 (71) 100 05/02/19 16:00 108/58 05/02/19 16:00 80 05/02/19 16:00 40 05/02/19 16:00 Mechanical Ventilator 40.0 05/02/19 15:30 78 19 132/69 (90) 100 05/02/19 15:00 83 20 30 05/02/19 15:00 98/58 05/02/19 15:00 75 16 107/50 (69) 100 Status: awake Condition: critical Neck: full ROM Heart: HR/BP stable, regular Abdomen: non-tender, active bowel sounds Extremities: no C/C/E Micro: Microbiology Date/Time Source Procedure Growth Status 05/01/19 10:15 Blood Blood Culture - Preliminary NO GROWTH AFTER 24 HOURS Resulted 05/01/19 10:00 Blood Blood Culture - Preliminary NO GROWTH AFTER 24 HOURS Resulted 05/01/19 16:00 Sputum Gram Stain - Final Resulted 05/01/19 16:00 Sputum Culture - Preliminary Staphylococcus Aureus Gram Negative Bacillus 1 Usual Respiratory Sarahi Resulted 05/01/19 10:15 Urine,Clean Catch Urine Culture - Preliminary Gram Negative Bacillus 1 Resulted 05/01/19 10:15 Rectum VRE Culture - Final NO VANCOMYCIN RESISTANT ENTEROCOCCUS ... Complete 05/01/19 10:15 Rectal Mucosa - Final NO CARBAPENEM-RESISTANT ENTEROBACTERI... Complete Accucheck: 117 Critical Care - Subjective ROS Limited/Unobtainable: Yes Condition: critical EKG Rhythm: Sinus Rhythm FI02: 30 Vent Support Breath Rate: 16 Vent Support Mode: AC Vent Tidal Volume: 500 Sputum Amount: Scant PEEP: 5.0 PIP: 21 I&O: Intake and Output 05/02/19 05/03/19 19:00 07:00 Intake Total 2670.942 ml 1602.86 ml Output Total 355 ml 500 ml Balance 2315.942 ml 1102.86 ml Intake Oral 350 ml 600 ml IV Total 2320.942 ml 1002.86 ml Output Urine Total 355 ml 500 ml # Bowel Movements 2 3 ET-Tube: 7.5 ET Position: 19 Labs: Laboratory Tests Test 05/03/19 04:00 White Blood Count 13.9 K/UL (4.8-10.8) H Red Blood Count 2.66 M/UL (4.20-5.40) L Hemoglobin 7.8 G/DL (12.0-16.0) L Hematocrit 24.1 % (37.0-47.0) L Mean Corpuscular Volume 91 FL (80-99) Mean Corpuscular Hemoglobin 29.5 PG (27.0-31.0) Mean Corpuscular Hemoglobin Concent 32.6 G/DL (32.0-36.0) Red Cell Distribution Width 16.0 % (11.6-14.8) H Platelet Count 104 K/UL (150-450) L Mean Platelet Volume 7.7 FL (6.5-10.1) Neutrophils (%) (Auto) % (45.0-75.0) Lymphocytes (%) (Auto) % (20.0-45.0) Monocytes (%) (Auto) % (1.0-10.0) Eosinophils (%) (Auto) % (0.0-3.0) Basophils (%) (Auto) % (0.0-2.0) Sodium Level 143 MMOL/L (136-145) Potassium Level 3.5 MMOL/L (3.5-5.1) Chloride Level 111 MMOL/L (98-107) H Carbon Dioxide Level 23 MMOL/L (21-32) Anion Gap 9 mmol/L (5-15) Blood Urea Nitrogen 45 mg/dL (7-18) H Creatinine 1.3 MG/DL (0.55-1.30) Estimat Glomerular Filtration Rate mL/min (>60) Glucose Level 139 MG/DL (74-106) #H Lactic Acid Level 1.00 mmol/L (0.4-2.0) Calcium Level 11.1 MG/DL (8.5-10.1) H Phosphorus Level 2.5 MG/DL (2.5-4.9) Magnesium Level 2.3 MG/DL (1.8-2.4) Total Bilirubin 1.0 MG/DL (0.2-1.0) Aspartate Amino Transf (AST/SGOT) 16 U/L (15-37) Alanine Aminotransferase (ALT/SGPT) 31 U/L (12-78) Alkaline Phosphatase 99 U/L (46-116) Troponin I 0.099 ng/mL (0.000-0.056) Pro-B-Type Natriuretic Peptide 1684 pg/mL (0-125) H Total Protein 4.7 G/DL (6.4-8.2) L Albumin 1.9 G/DL (3.4-5.0) L Globulin 2.8 g/dL Albumin/Globulin Ratio 0.7 (1.0-2.7) L HIV (1&2) Antibody Rapid Negative (NEGATIVE) Yancy Lai MD May 03, 2019 14:54
--- NOTE | 2019-05-03 16:00 | NUR ---
NURSE NOTES: Stool specimen was collected and sent to lab for OB stool. VS remain stable while pt is maintained off Levophed. customer service supervisor displays NSR. Pt is asleep in no apparent distress. Pt has been repositioned with bilateral extremities elevated on pillows.
--- NOTE | 2019-05-03 16:19 | Infectious Diseases Prog Note ---
Assessment/Plan Assessment/Plan Assessment/Recommendation: Tmax 104.2, SP New leukocytosis after steroid given Lactate 3.4>1.6>2.4>3.3>3.8>1.0 UTI? 05/01 UA 10-15 WBC 05/01 Ucx: >100K GNR PNA? 05/01 sputum cx: GNR, Staph aureus, normal resp magdalena 05/01 CXR: Right mainstem intubation. Suggest pulling the tube back about 3 cm. Atelectasis of the left lower lobe. Superimposed pneumonia or pleural effusion is not excluded. CHF suspected. 05/01 CXR: Endotracheal tube is 2 cm above the guille in good position. A left subclavian line is also present in good position of the tip projected over the SVC. Pulmonary edema again demonstrated. There is hazy opacity at the left lung base which is probably a pleural effusion. 05/02 CXR: Over one day, interval improvement of previously demonstrated left- sided pleural fluid and interstitial and airspace edema. Parenchymal disease is unchanged on the right. 05/03 CXR: Stable satisfactory positions of endotracheal tube, left arm PICC. Hazy opacities in the right mid and lower lung are probably unchanged. There is a small amount of hazy opacity at the left lung base persisting as well. The heart is normal in size. Allowing for technical differences, findings are overall unchanged r/o bacteremia 05/01 BCx: ngtd HTN COPD Schizophrenia DM G tube Parkinson CKD Protein calorie malnutrition Dementia Psychosis Gastritis Functional paraplegia Plan: Ertapenem, Amikacin, Vancomycin #3 pending culture result steroid per pulm f/u bcx f/u ucx f/u sputum cx aspiration precaution ETT management skin care oral care C diff if diarrhea Thank you for this consult. [facility] will continue to follow the patient with you. Subjective Allergies: Coded Allergies: No Known Allergies (Unverified , 05/01/19) Subjective Afebrile. levophed titrated off Leukocytosis slightly worse Moderate yellow secretions FiO2 30% Pasty bowel movement Objective Vital Signs Last 24 Hour Vital Signs Date Time Temp Pulse Resp B/P (MAP) Pulse Ox O2 Delivery O2 Flow Rate FiO2 05/03/19 15:07 80 16 30 05/03/19 14:00 80 16 103/45 (64) 98 05/03/19 13:30 88 19 109/60 (76) 91 05/03/19 13:00 86 17 98/79 (85) 99 05/03/19 12:58 78 18 30 05/03/19 12:00 82 05/03/19 12:00 Mechanical Ventilator 05/03/19 12:00 98.9 76 16 107/81 (90) 99 05/03/19 12:00 30 05/03/19 11:30 80 17 101/45 (63) 98 05/03/19 11:00 75 16 99/45 (63) 99 05/03/19 10:53 81 17 30 05/03/19 10:00 77 16 98/46 (63) 99 05/03/19 09:30 74 16 104/60 (75) 98 05/03/19 09:00 80 15 109/46 (67) 100 05/03/19 08:51 79 16 30 05/03/19 08:30 72 16 100/49 (66) 99 05/03/19 08:00 76 05/03/19 08:00 Mechanical Ventilator 05/03/19 08:00 30 05/03/19 08:00 99.0 77 20 114/55 (74) 95 05/03/19 07:30 68 16 98/45 (62) 99 05/03/19 07:00 74 15 104/45 (64) 100 05/03/19 06:50 77 19 30 05/03/19 06:30 72 16 95/45 (62) 99 05/03/19 06:00 76 17 112/45 (67) 98 05/03/19 05:30 77 19 30 05/03/19 05:00 98.9 88 17 110/47 (68) 100 05/03/19 04:30 70 16 97/54 (68) 100 05/03/19 04:00 80 05/03/19 04:00 Mechanical Ventilator 05/03/19 04:00 30 05/03/19 04:00 72 18 114/47 (69) 100 05/03/19 03:30 76 18 113/75 (88) 100 05/03/19 03:29 78 18 30 05/03/19 03:00 78 20 119/55 (76) 100 05/03/19 02:30 69 17 112/50 (70) 100 05/03/19 02:00 111/49 05/03/19 02:00 68 16 111/46 (67) 100 05/03/19 01:30 66 16 112/46 (68) 99 05/03/19 01:06 81 17 30 05/03/19 01:00 109/49 05/03/19 01:00 67 16 95/42 (59) 99 05/03/19 00:30 72 17 94/41 (58) 99 05/03/19 00:01 103/56 05/03/19 00:00 30 05/03/19 00:00 98.7 88 19 103/56 (72) 93 05/03/19 00:00 76 05/03/19 00:00 Mechanical Ventilator 40.0 05/02/19 23:30 82 19 115/35 (61) 98 05/02/19 23:18 75 17 30 05/02/19 23:00 73 17 100/43 (62) 99 05/02/19 23:00 75 17 115/66 (82) 99 05/02/19 23:00 115/35 05/02/19 22:30 73 17 100/43 (62) 99 05/02/19 22:00 72 17 106/44 (64) 99 05/02/19 22:00 100/43 05/02/19 21:30 72 17 103/46 (65) 99 05/02/19 21:03 106/44 05/02/19 21:00 81 16 30 05/02/19 21:00 71 16 95/64 (74) 99 05/02/19 20:30 78 18 105/46 (65) 98 05/02/19 20:00 30 05/02/19 20:00 94/48 05/02/19 20:00 76 05/02/19 20:00 Mechanical Ventilator 40.0 05/02/19 20:00 98.6 76 18 94/48 (63) 99 05/02/19 19:06 71 17 30 05/02/19 19:00 80 18 133/103 (113) 97 05/02/19 19:00 120/60 05/02/19 18:30 79 19 117/75 (89) 99 05/02/19 18:00 78 26 121/54 (76) 98 05/02/19 18:00 112/60 05/02/19 17:30 78 20 30 05/02/19 17:30 81 18 124/76 (92) 100 05/02/19 17:00 75 16 112/50 (70) 100 05/02/19 17:00 110/60 05/02/19 16:30 78 17 113/49 (70) 99 Height (Feet): 5 Height (Inches): 7.00 Weight (Pounds): 115 Objective VS: Tmax 104.2 Gen: NAD. twitching HEENT: ETT CV: RRR Resp: RRR. coarse. no wheezes Abd: soft. nondistended. normoactive Bs+ Neuro: not awake Microbiology Date/Time Source Procedure Growth Status 05/01/19 10:15 Blood Blood Culture - Preliminary NO GROWTH AFTER 24 HOURS Resulted 05/01/19 10:00 Blood Blood Culture - Preliminary NO GROWTH AFTER 24 HOURS Resulted 05/01/19 16:00 Sputum Gram Stain - Final Resulted 05/01/19 16:00 Sputum Culture - Preliminary Staphylococcus Aureus Gram Negative Bacillus 1 Usual Respiratory Magdalena Resulted 05/01/19 10:15 Urine,Clean Catch Urine Culture - Preliminary Gram Negative Bacillus 1 Resulted 05/01/19 10:15 Rectum VRE Culture - Final NO VANCOMYCIN RESISTANT ENTEROCOCCUS ... Complete 05/01/19 10:15 Rectal Mucosa - Final NO CARBAPENEM-RESISTANT ENTEROBACTERI... Complete Laboratory Tests Test 05/03/19 04:00 White Blood Count 13.9 K/UL (4.8-10.8) H Red Blood Count 2.66 M/UL (4.20-5.40) L Hemoglobin 7.8 G/DL (12.0-16.0) L Hematocrit 24.1 % (37.0-47.0) L Mean Corpuscular Volume 91 FL (80-99) Mean Corpuscular Hemoglobin 29.5 PG (27.0-31.0) Mean Corpuscular Hemoglobin Concent 32.6 G/DL (32.0-36.0) Red Cell Distribution Width 16.0 % (11.6-14.8) H Platelet Count 104 K/UL (150-450) L Mean Platelet Volume 7.7 FL (6.5-10.1) Neutrophils (%) (Auto) % (45.0-75.0) Lymphocytes (%) (Auto) % (20.0-45.0) Monocytes (%) (Auto) % (1.0-10.0) Eosinophils (%) (Auto) % (0.0-3.0) Basophils (%) (Auto) % (0.0-2.0) Sodium Level 143 MMOL/L (136-145) Potassium Level 3.5 MMOL/L (3.5-5.1) Chloride Level 111 MMOL/L (98-107) H Carbon Dioxide Level 23 MMOL/L (21-32) Anion Gap 9 mmol/L (5-15) Blood Urea Nitrogen 45 mg/dL (7-18) H Creatinine 1.3 MG/DL (0.55-1.30) Estimat Glomerular Filtration Rate mL/min (>60) Glucose Level 139 MG/DL (74-106) #H Lactic Acid Level 1.00 mmol/L (0.4-2.0) Calcium Level 11.1 MG/DL (8.5-10.1) H Phosphorus Level 2.5 MG/DL (2.5-4.9) Magnesium Level 2.3 MG/DL (1.8-2.4) Total Bilirubin 1.0 MG/DL (0.2-1.0) Aspartate Amino Transf (AST/SGOT) 16 U/L (15-37) Alanine Aminotransferase (ALT/SGPT) 31 U/L (12-78) Alkaline Phosphatase 99 U/L (46-116) Troponin I 0.099 ng/mL (0.000-0.056) Pro-B-Type Natriuretic Peptide 1684 pg/mL (0-125) H Total Protein 4.7 G/DL (6.4-8.2) L Albumin 1.9 G/DL (3.4-5.0) L Globulin 2.8 g/dL Albumin/Globulin Ratio 0.7 (1.0-2.7) L HIV (1&2) Antibody Rapid Negative (NEGATIVE) Current Medications Medications (Trade) Dose Ordered Sig/Vane Route PRN Reason Start Time Stop Time Status Last Admin Dose Admin Acetaminophen (Tylenol) 650 mg Q4H PRN ORAL fever 05/01/19 12:45 05/31/19 12:44 Albuterol/ Ipratropium (Albuterol/ Ipratropium) 3 ml Q4H PRN HHN Shortness of Breath 05/01/19 12:45 05/06/19 12:44 Amikacin Protocol (Amikacin pharmacy to dose) 1 ea DAILY PRN MISC . 05/01/19 12:45 05/31/19 12:44 Amikacin Sulfate 500 mg/Sodium Chloride 112 ml @ 112 mls/hr Q24H IV 05/01/19 18:00 05/08/19 17:59 05/02/19 18:11 Calcitonin [place] (Miacalcin) 1 sprays DAILY NASAL 05/04/19 09:00 06/03/19 08:59 Chlorhexidine Gluconate (Shanice-Hex 2%) 1 applic DAILY@2000 TOPIC 05/01/19 20:00 05/31/19 19:59 05/02/19 20:03 Dextrose (Dextrose 50%) 25 ml Q30M PRN IV Hypoglycemia 05/02/19 06:30 06/01/19 06:29 Dextrose (Dextrose 50%) 50 ml Q30M PRN IV Hypoglycemia 05/02/19 06:30 06/01/19 06:29 Ertapenem 0.5 gm/ Sodium Chloride 55 ml @ 110 mls/hr Q24H IV 05/01/19 21:00 05/06/19 20:59 05/02/19 21:03 Heparin Sodium (Porcine) (Heparin 5000 units/ml) 5,000 units EVERY 12 HOURS SUBQ 05/01/19 21:00 05/31/19 20:59 05/01/19 21:17 Insulin Aspart (NovoLOG) EVERY 6 HOURS SUBQ 05/02/19 07:30 06/01/19 07:29 05/03/19 12:44 Lorazepam (Ativan 2mg/ml 1ml) 2 mg Q2H PRN IV For Anxiety 05/01/19 12:45 05/08/19 12:44 05/02/19 11:48 Lorazepam (Ativan) 0.5 mg Q6H PRN ORAL For Anxiety 05/02/19 07:30 05/09/19 07:29 Morphine Sulfate (Morphine Sulfate) 4 mg Q4H PRN IVP Severe Pain (Pain Scale 7-10) 05/01/19 12:45 05/08/19 12:44 Norepinephrine Bitartrate 4 mg/ Dextrose 254 ml @ 0 mls/hr Q24H IV 05/01/19 12:45 05/31/19 12:44 05/01/19 15:45 Ondansetron HCl (Zofran) 4 mg Q6H PRN IVP Nausea & Vomiting 05/01/19 12:45 05/31/19 12:44 Pantoprazole (Protonix) 40 mg Q12HR IV 05/01/19 21:00 06/01/19 08:59 05/03/19 10:13 Risperidone (RisperDAL) 0.25 mg QHS PRN GT Agitation 05/02/19 07:30 06/01/19 07:29 Sodium Chloride 1,000 ml @ 75 mls/hr [id number] IV 05/02/19 10:39 06/01/19 10:38 05/03/19 12:44 Vancomycin HCl (Vanco rx to dose) 1 ea DAILY PRN MISC . 05/01/19 12:45 05/31/19 12:44 Jennifer Palm MD May 03, 2019 16:19
--- NOTE | 2019-05-03 17:30 | NUR ---
NURSE NOTES: Pt had BM, dark greenish brown, pasty. Pt was cleaned, gown/bed linens changed and pt was repositioned.
--- NOTE | 2019-05-03 18:00 | Progress Note ---
DATE: 05/03/2019 SUBJECTIVE: This is a 78-year-old female patient who came to the hospital with respiratory failure. She has some confusion, some disorganized thought process, and decline in cognition below baseline that is why her attending physician has requested daily psychiatric consultation at this time. She does have some mood lability, confusion, disorganized thought process. She has got no logical plan for own self-care that is why she does require inpatient treatment at this time. She is in the ICU currently. She has respiratory failure on BiPAP. She has septic shock, pulmonary congestion, hypertension, pneumonia, although she does have a long history of paranoid schizophrenia and mood lability that is why daily psychiatric consultation was requested. MENTAL STATUS EXAMINATION: The patient is a 78-year-old female patient. Appearance is disheveled. Attitude, irritable and agitated. Affect, guarded and restricted. Intellect poor. Mood, depressed and anxious. Motor activity, psychomotor agitation. Insight and judgment is poor. DIAGNOSIS: Major depressive disorder, severe, recurrent with psychotic features, rule out dementia with psychosis. PLAN: Treat this patient with psychotropic medication regimen consisting of Risperdal 0.5 mg per G-tube at bedtime, Ativan 0.5 mg every 6 hours p.r.n. anxiety and agitation . Chart reviewed and discussed with staff. Seen and assessed at bedside. A 20 minutes of behavioral management provided. Kristen Rodgers M.D. DR: Wenceslao JOB#: [id number] CC:
[2019-05-03] MEDS: Amikacin 500 MG in NS 110 ML IV SCH (18:19)
--- NOTE | 2019-05-03 18:29 | NUR ---
NURSE NOTES: GT feeding was started Glucerna 1.2 at a starting rate of 15ml/hour. Currently zero residual. Also, pt's public guardian came to visit and signed consent for blood transfusion and filled out POLST form for Full Code.
--- NOTE | 2019-05-03 19:27 | NUR ---
HAND-OFF: Report given to Rich DUNN. Endorsed plan of care, including PRBC infusion.
--- NOTE | 2019-05-03 19:33 | NUR ---
RESPIRATORY NOTE: Received pt on AC 16, 500VT, 30%, PEEP +5. Pt intubated w/ ETT 7.5 @ 19cm lipline, secured w/ anchorfast. Pt asleep, responds to stimuli. Bite block in place as pt tends to bite down ETT. Both hands on soft restraints to prevent pt from self-extubation. B/S jaime. rhonchi/diminished, sxn small amounts of thick, pale-yellow secretions. Vent plugged into red outlet, amubag at bedside. Pt in no apparent distress at this time. Will continue to monitor pt.
--- NOTE | 2019-05-03 20:00 | NUR ---
NURSE NOTES: received report fr mike rn pt asleep response to touch but does not follows command moving upper and lower extremities on jaime soft wrest restraints nan complaint pt orally intubated ett 7.5 at at 19 ac16 tv 500 p5 fio2 30 0/0 no acute resp distress noted 1 unit prbc stared with 2rn no reaction after [address] romano in and seen pt had bm soft bn bed bath done and partial linin change reposition and suction
[2019-05-03] MEDS: Ertapenem 0.5 GM in NS 55 ML IV SCH (20:18)
[2019-05-03] MEDS: Dyna-Hex 2% Top Sol 2oz TOPIC SCH (20:18)
--- NOTE | 2019-05-03 20:44 | Cardiology Progress Note ---
Assessment/Plan Assessment/Plan 1. Acute febrile illness, sepsis. 2. Hypotension. 3. Possible pneumonia/ respiratory failure acute 4. Urinary tract infection? 5. Hypernatremia. 6. Renal insufficiency and failure. 7. Dementia. 8. G-tube placement. 9. anemia 10. thrombocytopenia 11. lactic acidosis 12. hyperglycemia still with sig pulm secretion per staff iv abx vent support getting prbc tx plt stable abn trop noted cxr personally reviewed improving a little d/w rn pulm toilette echo lv fxn normal Subjective ROS Limited/Unobtainable: Yes Objective Last 24 Hour Vital Signs Date Time Temp Pulse Resp B/P (MAP) Pulse Ox O2 Delivery O2 Flow Rate FiO2 05/03/19 20:30 85 17 111/65 (80) 98 05/03/19 20:00 99.4 73 16 104/40 (61) 99 05/03/19 19:30 81 17 30 05/03/19 19:00 80 17 115/47 (69) 99 05/03/19 18:30 78 16 101/40 (60) 99 05/03/19 18:00 77 16 100/40 (60) 99 05/03/19 17:00 91 19 125/58 (80) 100 05/03/19 16:52 81 17 30 05/03/19 16:30 82 17 101/43 (62) 99 05/03/19 16:00 80 05/03/19 16:00 30 05/03/19 16:00 Mechanical Ventilator 05/03/19 16:00 99.2 87 17 109/57 (74) 99 05/03/19 15:30 83 18 109/57 (74) 97 05/03/19 15:07 80 16 30 05/03/19 15:00 81 16 104/44 (64) 98 05/03/19 14:00 80 16 103/45 (64) 98 05/03/19 13:30 88 19 109/60 (76) 91 05/03/19 13:00 86 17 98/79 (85) 99 05/03/19 12:58 78 18 30 05/03/19 12:00 82 05/03/19 12:00 Mechanical Ventilator 05/03/19 12:00 98.9 76 16 107/81 (90) 99 05/03/19 12:00 30 05/03/19 11:30 80 17 101/45 (63) 98 05/03/19 11:00 75 16 99/45 (63) 99 05/03/19 10:53 81 17 30 05/03/19 10:00 77 16 98/46 (63) 99 05/03/19 09:30 74 16 104/60 (75) 98 05/03/19 09:00 80 15 109/46 (67) 100 05/03/19 08:51 79 16 30 05/03/19 08:30 72 16 100/49 (66) 99 05/03/19 08:00 76 05/03/19 08:00 Mechanical Ventilator 05/03/19 08:00 30 05/03/19 08:00 99.0 77 20 114/55 (74) 95 05/03/19 07:30 68 16 98/45 (62) 99 05/03/19 07:00 74 15 104/45 (64) 100 05/03/19 06:50 77 19 30 05/03/19 06:30 72 16 95/45 (62) 99 05/03/19 06:00 76 17 112/45 (67) 98 05/03/19 05:30 77 19 30 05/03/19 05:00 98.9 88 17 110/47 (68) 100 05/03/19 04:30 70 16 97/54 (68) 100 05/03/19 04:00 80 05/03/19 04:00 Mechanical Ventilator 05/03/19 04:00 30 05/03/19 04:00 72 18 114/47 (69) 100 05/03/19 03:30 76 18 113/75 (88) 100 05/03/19 03:29 78 18 30 05/03/19 03:00 78 20 119/55 (76) 100 05/03/19 02:30 69 17 112/50 (70) 100 05/03/19 02:00 111/49 05/03/19 02:00 68 16 111/46 (67) 100 05/03/19 01:30 66 16 112/46 (68) 99 05/03/19 01:06 81 17 30 05/03/19 01:00 109/49 05/03/19 01:00 67 16 95/42 (59) 99 05/03/19 00:30 72 17 94/41 (58) 99 05/03/19 00:01 103/56 05/03/19 00:00 30 05/03/19 00:00 98.7 88 19 103/56 (72) 93 05/03/19 00:00 76 05/03/19 00:00 Mechanical Ventilator 40.0 05/02/19 23:30 82 19 115/35 (61) 98 05/02/19 23:18 75 17 30 05/02/19 23:00 73 17 100/43 (62) 99 05/02/19 23:00 75 17 115/66 (82) 99 05/02/19 23:00 115/35 05/02/19 22:30 73 17 100/43 (62) 99 05/02/19 22:00 72 17 106/44 (64) 99 05/02/19 22:00 100/43 05/02/19 21:30 72 17 103/46 (65) 99 05/02/19 21:03 106/44 05/02/19 21:00 81 16 30 05/02/19 21:00 71 16 95/64 (74) 99 General Appearance: on vent, patient on isolation Cardiovascular: normal rate Respiratory/Chest: lungs clear Abdomen: normal bowel sounds, non tender, soft Extremities: no swelling Intake and Output 05/02/19 05/03/19 19:00 07:00 Intake Total 2670.942 ml 1602.86 ml Output Total 355 ml 500 ml Balance 2315.942 ml 1102.86 ml Intake Oral 350 ml 600 ml IV Total 2320.942 ml 1002.86 ml Output Urine Total 355 ml 500 ml # Bowel Movements 2 3 Laboratory Tests Test 05/03/19 04:00 05/03/19 16:00 White Blood Count 13.9 K/UL (4.8-10.8) H Red Blood Count 2.66 M/UL (4.20-5.40) L Hemoglobin 7.8 G/DL (12.0-16.0) L Hematocrit 24.1 % (37.0-47.0) L Mean Corpuscular Volume 91 FL (80-99) Mean Corpuscular Hemoglobin 29.5 PG (27.0-31.0) Mean Corpuscular Hemoglobin Concent 32.6 G/DL (32.0-36.0) Red Cell Distribution Width 16.0 % (11.6-14.8) H Platelet Count 104 K/UL (150-450) L Mean Platelet Volume 7.7 FL (6.5-10.1) Neutrophils (%) (Auto) % (45.0-75.0) Lymphocytes (%) (Auto) % (20.0-45.0) Monocytes (%) (Auto) % (1.0-10.0) Eosinophils (%) (Auto) % (0.0-3.0) Basophils (%) (Auto) % (0.0-2.0) Sodium Level 143 MMOL/L (136-145) Potassium Level 3.5 MMOL/L (3.5-5.1) Chloride Level 111 MMOL/L (98-107) H Carbon Dioxide Level 23 MMOL/L (21-32) Anion Gap 9 mmol/L (5-15) Blood Urea Nitrogen 45 mg/dL (7-18) H Creatinine 1.3 MG/DL (0.55-1.30) Estimat Glomerular Filtration Rate mL/min (>60) Glucose Level 139 MG/DL (74-106) #H Lactic Acid Level 1.00 mmol/L (0.4-2.0) Calcium Level 11.1 MG/DL (8.5-10.1) H Calcium (Send out) Pending Phosphorus Level 2.5 MG/DL (2.5-4.9) Magnesium Level 2.3 MG/DL (1.8-2.4) Total Bilirubin 1.0 MG/DL (0.2-1.0) Aspartate Amino Transf (AST/SGOT) 16 U/L (15-37) Alanine Aminotransferase (ALT/SGPT) 31 U/L (12-78) Alkaline Phosphatase 99 U/L (46-116) Troponin I 0.099 ng/mL (0.000-0.056) Pro-B-Type Natriuretic Peptide 1684 pg/mL (0-125) H Total Protein 4.7 G/DL (6.4-8.2) L Albumin 1.9 G/DL (3.4-5.0) L Globulin 2.8 g/dL Albumin/Globulin Ratio 0.7 (1.0-2.7) L Parathyroid Hormone (Intact) Pending Hepatitis A IgM Antibody Pending Hepatitis B Surface Antigen Pending Hepatitis B Core IgM Antibody Pending Hepatitis C Antibody Pending HIV (1&2) Antibody Rapid Negative (NEGATIVE) Stool Occult Blood Pending Microbiology Date/Time Source Procedure Growth Status 05/01/19 10:15 Blood Blood Culture - Preliminary NO GROWTH AFTER 24 HOURS Resulted 05/01/19 10:00 Blood Blood Culture - Preliminary NO GROWTH AFTER 24 HOURS Resulted 05/01/19 16:00 Sputum Gram Stain - Final Resulted 05/01/19 16:00 Sputum Culture - Preliminary Staphylococcus Aureus Gram Negative Bacillus 1 Usual Respiratory Sarahi Resulted 05/01/19 10:15 Urine,Clean Catch Urine Culture - Preliminary Gram Negative Bacillus 1 Resulted 05/01/19 10:15 Rectum VRE Culture - Final NO VANCOMYCIN RESISTANT ENTEROCOCCUS ... Complete 05/01/19 10:15 Rectal Mucosa - Final NO CARBAPENEM-RESISTANT ENTEROBACTERI... Complete Objective Current Medications Medications (Trade) Dose Ordered Sig/Vane Route PRN Reason Start Time Stop Time Status Last Admin Dose Admin Acetaminophen (Tylenol) 650 mg Q4H PRN ORAL fever 05/01/19 12:45 05/31/19 12:44 Albuterol/ Ipratropium (Albuterol/ Ipratropium) 3 ml Q4H PRN HHN Shortness of Breath 05/01/19 12:45 05/06/19 12:44 Amikacin Protocol (Amikacin pharmacy to dose) 1 ea DAILY PRN MISC . 05/01/19 12:45 05/31/19 12:44 Amikacin Sulfate 500 mg/Sodium Chloride 112 ml @ 112 mls/hr Q24H IV 05/01/19 18:00 05/08/19 17:59 05/01/19 18:04 Chlorhexidine Gluconate (Shanice-Hex 2%) 1 applic DAILY@1999 TOPIC 05/01/19 20:00 05/31/19 19:59 05/01/19 19:48 Dextrose (Dextrose 50%) 25 ml Q30M PRN IV Hypoglycemia 05/02/19 06:30 06/01/19 06:29 Dextrose (Dextrose 50%) 50 ml Q30M PRN IV Hypoglycemia 05/02/19 06:30 06/01/19 06:29 Ertapenem 0.5 gm/ Sodium Chloride 55 ml @ 110 mls/hr Q24H IV 05/01/19 21:00 05/06/19 20:59 05/01/19 21:15 Heparin Sodium (Porcine) (Heparin 5000 units/ml) 5,000 units EVERY 12 HOURS SUBQ 05/01/19 21:00 05/31/19 20:59 05/01/19 21:17 Insulin Aspart (NovoLOG) EVERY 6 HOURS SUBQ 05/02/19 07:30 06/01/19 07:29 05/02/19 08:42 Lorazepam (Ativan 2mg/ml 1ml) 2 mg Q2H PRN IV For Anxiety 05/01/19 12:45 05/08/19 12:44 05/02/19 11:48 Lorazepam (Ativan) 0.5 mg Q6H PRN ORAL For Anxiety 05/02/19 07:30 05/09/19 07:29 Magnesium Sulfate 100 ml @ 100 mls/hr Q1H IVPB 05/02/19 10:00 05/02/19 13:59 05/02/19 11:03 Morphine Sulfate (Morphine Sulfate) 4 mg Q4H PRN IVP Severe Pain (Pain Scale 7-10) 05/01/19 12:45 05/08/19 12:44 Norepinephrine Bitartrate 4 mg/ Dextrose 254 ml @ 0 mls/hr Q24H IV 05/01/19 12:45 05/31/19 12:44 05/01/19 15:45 Ondansetron HCl (Zofran) 4 mg Q6H PRN IVP Nausea & Vomiting 05/01/19 12:45 05/31/19 12:44 Pantoprazole (Protonix) 40 mg Q12HR IV 05/01/19 21:00 06/01/19 08:59 05/02/19 08:29 Potassium Phosphate 20 mm/ Sodium Chloride 281.6667 ml @ 46.944 m... ONCE ONCE IV 05/02/19 11:00 05/02/19 16:59 05/02/19 11:02 Potassium Chloride 100 ml @ 100 mls/hr Q1HR IVPB 05/02/19 10:00 05/02/19 13:59 05/02/19 11:02 Risperidone (RisperDAL) 0.25 mg QHS PRN GT Agitation 05/02/19 07:30 06/01/19 07:29 Sodium Chloride 1,000 ml @ 75 mls/hr [id number] IV 05/02/19 10:39 06/01/19 10:38 05/02/19 11:02 Vancomycin HCl (Vanco rx to dose) 1 ea DAILY PRN MISC . 05/01/19 12:45 05/31/19 12:44 Martin Sarmiento MD May 03, 2019 20:44
--- NOTE | 2019-05-03 22:00 | NUR ---
NURSE NOTES: reposition and suction tolerating blood transfusion no reaction
[2019-05-04] VITALS (33 sets, daily range): BP systolic 80–134; BP diastolic 36–55
--- NOTE | 2019-05-04 | NUR ---
NURSE NOTES: asleep blood transfusion no apparent reaction reposition and suction
--- NOTE | 2019-05-04 02:00 | NUR ---
NURSE NOTES: reposition and suction tolerating tube feeding no residual
--- NOTE | 2019-05-04 04:00 | NUR ---
NURSE NOTES: complete bed bath orally care kwon care done
[2019-05-04 05:21] LABS: HEMATOCRIT 29.5 % (37.0-47.0); HEMOGLOBIN 9.9 G/DL (12.0-16.0); MEAN CORPUSCULAR VOLUME 88 FL (80-99); PLATELET COUNT 105 K/UL (150-450); RED BLOOD COUNT 3.36 M/UL (4.20-5.40); RED CELL DISTRIBUTION WIDTH 16.3 % (11.6-14.8); WHITE BLOOD COUNT 10.7 K/UL (4.8-10.8)
--- NOTE | 2019-05-04 06:00 | NUR ---
NURSE NOTES: reposition and suction no acute distress note
[2019-05-04] MEDS: NovoLOG Insulin Flexpen SUBQ SCH ×5 (06:08→23:51)
[2019-05-04 06:09] LABS: ALANINE AMINOTRANSFERASE 71 U/L (12-78); ALBUMIN 1.7 G/DL (3.4-5.0); ALBUMIN/GLOBULIN RATIO 0.6 (1.0-2.7); ALKALINE PHOSPHATASE 203 U/L (46-116); ANION GAP 8 mmol/L (5-15); ASPARTATE AMINO TRANSFERASE 59 U/L (15-37); BILIRUBIN,TOTAL 1.1 MG/DL (0.2-1.0); BLOOD UREA NITROGEN 34 mg/dL (7-18); CALCIUM 10.4 MG/DL (8.5-10.1); CARBON DIOXIDE 21 MMOL/L (21-32); CHLORIDE 110 MMOL/L (98-107); CREATININE 1.2 MG/DL (0.55-1.30); POTASSIUM 3.2 MMOL/L (3.5-5.1); SODIUM 139 MMOL/L (136-145)
[2019-05-04 06:12] LABS: BILIRUBIN,DIRECT 0.5 MG/DL (0.0-0.3)
[2019-05-04 06:13] LABS: PHOSPHORUS 2.6 MG/DL (2.5-4.9)
[2019-05-04] MEDS ORDERED: Etomidate 40mg/20ml Inj IV ONE (07:10)
--- NOTE | 2019-05-04 07:30 | NUR ---
NURSE NOTES: RECEIVED REPORT FROM Emiliano CUETO PT LETHARGIC, RESPONSIVE TO DEEP PAIN. PUPILS 3MM, SLUGGISH, GAG PRESENT. NON VERBAL. VS:100.5 AX TEMP. HR 71, RR16, BP 92/47. NO JVD, CAP REFILL >3SEC, HOT TOUCH. BILATERAL RADIAL AND PEDAL PULSES WEAK. RT HAND WEEPING EDEMA NOTED. ETTUBE 7.5, 19cm@LIP. VENT SETTINGS: AC16, VT 500, PEEP5, FI02 30%. SR, BUT OCCASIONAL SB LOW 57. S1,S2 PRESENT. LUNG SOUNDS DIMINISHED THROUGHOUT. TRACHEAL SECRETIONS YELLOW-SANTIAGO, THICK. ORAL SECRETIONS TENACIOUS, CLEAR-SANTIAGO MODERATE AMOUNT. ABDOMEN ROUND, SOFT, BOWEL SOUNDS HYPOACTIVE. GT PATENT, TUBE FEEDING GLUCERNA 1.2, RUNNING AT 50ML/HR. NO BM AT THIS TIME. SKIN- SEE ASSESSMENT. ON P200 MATTRESS. BILATERAL SOFT WRIST RESTRAINTS NOTED. CIRCULATION CHECK COMPETED. CONTACT PRECAUTIONS IN PLACE. BED ALARM ON, LOCKED AND IN LOWEST POSITION. ZONE 2, SIDE RAILS UP X3. EDUCATION PROVIDED ON PREVENTING VAP, CRITERIA FOR RESTRAINT REMOVAL. WILL CONTINUE TO IMPLEMENT PLAN OF CARE. Addendum: 05/04/19 at 1527 by Ro Carter RN LATE ENTRY
--- NOTE | 2019-05-04 07:30 | NUR ---
RESPIRATORY NOTE: Received pt on ETT 7.5@19cm lips line with current vent settings: AC 16-500ml-30%FiO2- peep 5, saturates at 97%. Pt is obtunded, eyes open when stimuli but unable to follow commands. Serafin rhonchi breath sounds heard upon auscultation, suctioned moderate amounts of thick red brown yellow secretions without incidents. Bite block in place to prevent tube biting. Vent circuits and suction tubing are secure and out of the way. Vent is plugged into the red outlet, alarms are set and audible, ambu bag is at bedside. No SOB or resp distress noted at this time. Will continue to monitor pt.
--- NOTE | 2019-05-04 07:39 | NUR ---
HAND-OFF: Report given to kayleigh using sbar.
--- NOTE | 2019-05-04 07:40 | NUR ---
NURSE NOTES: LATE ENTRY: SEMAJ FERNANDEZ HERE TO DO CXR
--- NOTE | 2019-05-04 08:02 | NUR ---
NURSE NOTES: MD MAYFIELD HERE TO SEE PT. INFORMED OF INCREASED H/H 9.9. POST 1 UNIT PRBC, TEMP 100.5, NEW MDR OF URINE. DOES NOT FOLLOW COMMANDS, RESPONSIVE TO DEEP PAIN.
--- NOTE | 2019-05-04 08:42 | NUR ---
NURSE NOTES: MD ALVA HERE TO SEE PT. REPLACING MG AND KCL. BUN/CRE WILL CONTINUE TO MONITOR. NO NEW ORDERS AT THIS TIME.
[2019-05-04] MEDS ORDERED: Vancomycin 750mg/D5W 275ml IVPB SCH ×2 (09:00)
[2019-05-04] MEDS: Heparin 5000 units/ml inj SUBQ SCH ×2 (09:00→21:07)
[2019-05-04] MEDS ORDERED: Vancomycin 1gm in D5W 275ml IVPB SCH (09:00)
[2019-05-04] MEDS: Pantoprazole Inj IV SCH ×2 (09:02→21:06)
--- NOTE | 2019-05-04 09:19 | Nephrology Progress Note ---
Assessment/Plan Problem List: (1) Hypercalcemia (2) Septic shock (3) Acute kidney injury (4) Acute respiratory failure (5) Dehydration (6) Anemia Assessment Acute renal failure Dehydration / HyperNatremia / HyperCalcemia Septic Shock Respiratory failure / COPD NSTEMI DM PEG Schizophrenia Anemia Plan Aredia 90 mg IV and Nasal Calcitonin correct lytes prn Lasix IV fluid change to 1/2 NS K and Phos and Mag supplement as needed monitor renal parameters and Calcium urine studies anemia au avoid Nephrotoxics Subjective ROS Limited/Unobtainable: Yes Objective Objective Last 24 Hour Vital Signs Date Time Temp Pulse Resp B/P (MAP) Pulse Ox O2 Delivery O2 Flow Rate FiO2 05/04/19 08:00 100.5 71 16 92/47 (62) 98 05/04/19 08:00 30 05/04/19 07:30 71 16 30 05/04/19 07:00 62 16 107/48 (67) 99 05/04/19 06:30 75 17 120/53 (75) 99 05/04/19 06:00 74 16 111/45 (67) 100 05/04/19 05:10 63 16 30 05/04/19 05:00 74 16 118/43 (68) 100 05/04/19 04:00 30 05/04/19 04:00 81 16 131/55 (80) 99 05/04/19 04:00 Mechanical Ventilator 05/04/19 04:00 76 05/04/19 03:00 72 16 109/54 (72) 99 05/04/19 02:40 73 16 30 05/04/19 02:00 80 16 119/48 (71) 99 05/04/19 02:00 74 05/04/19 01:00 83 18 134/46 (75) 98 05/04/19 00:45 68 16 30 05/04/19 00:30 73 16 113/44 (67) 100 05/04/19 00:00 30 05/04/19 00:00 Mechanical Ventilator 05/04/19 00:00 71 05/04/19 00:00 99.0 76 16 123/49 (73) 99 05/03/19 23:30 74 16 94/43 (60) 99 05/03/19 23:00 74 16 107/44 (65) 100 05/03/19 22:49 79 16 30 05/03/19 22:30 78 17 106/46 (66) 99 05/03/19 22:00 83 20 113/43 (66) 100 05/03/19 21:30 78 16 92/68 (76) 99 05/03/19 21:00 81 17 113/48 (69) 99 05/03/19 20:47 85 17 30 05/03/19 20:30 85 17 111/65 (80) 98 05/03/19 20:00 99.4 73 16 104/40 (61) 99 05/03/19 20:00 83 05/03/19 20:00 Mechanical Ventilator 05/03/19 20:00 30 05/03/19 19:30 81 17 30 05/03/19 19:00 80 17 115/47 (69) 99 05/03/19 18:30 78 16 101/40 (60) 99 05/03/19 18:00 77 16 100/40 (60) 99 05/03/19 17:00 91 19 125/58 (80) 100 05/03/19 16:52 81 17 30 05/03/19 16:30 82 17 101/43 (62) 99 05/03/19 16:00 80 05/03/19 16:00 30 05/03/19 16:00 Mechanical Ventilator 05/03/19 16:00 99.2 87 17 109/57 (74) 99 05/03/19 15:30 83 18 109/57 (74) 97 05/03/19 15:07 80 16 30 05/03/19 15:00 81 16 104/44 (64) 98 05/03/19 14:00 80 16 103/45 (64) 98 05/03/19 13:30 88 19 109/60 (76) 91 05/03/19 13:00 86 17 98/79 (85) 99 05/03/19 12:58 78 18 30 05/03/19 12:00 82 05/03/19 12:00 Mechanical Ventilator 05/03/19 12:00 98.9 76 16 107/81 (90) 99 05/03/19 12:00 30 05/03/19 11:30 80 17 101/45 (63) 98 05/03/19 11:00 75 16 99/45 (63) 99 05/03/19 10:53 81 17 30 05/03/19 10:00 77 16 98/46 (63) 99 05/03/19 09:30 74 16 104/60 (75) 98 Intake and Output 05/03/19 05/04/19 18:59 06:59 Intake Total 2015.0 ml 1482 ml Output Total 410 ml 475 ml Balance 1605.0 ml 1007 ml Intake Oral 550 ml IV Total 1450.0 ml 767 ml Tube Feeding 15 ml 415 ml Blood Product 300 ml Output Urine Total 410 ml 475 ml # Bowel Movements 3 6 Laboratory Tests 05/03/19 16:00: Stool Occult Blood [Pending] 05/04/19 03:25: White Blood Count 10.7, Red Blood Count 3.36L, Hemoglobin 9.9L, Hematocrit 29.5L , Mean Corpuscular Volume 88, Mean Corpuscular Hemoglobin 29.4, Mean Corpuscular Hemoglobin Concent 33.4, Red Cell Distribution Width 16.3H, Platelet Count 105L, Mean Platelet Volume 8.2, Neutrophils (%) (Auto) , Lymphocytes (%) (Auto) , Monocytes (%) (Auto) , Eosinophils (%) (Auto) , Basophils (%) (Auto) , Sodium Level 139, Potassium Level 3.2L, Chloride Level 110H, Carbon Dioxide Level 21, Anion Gap 8, Blood Urea Nitrogen 34H, Creatinine 1.2, Estimat Glomerular Filtration Rate , Glucose Level 126H, Uric Acid 6.1, Calcium Level 10.4H, Phosphorus Level 2.6, Magnesium Level 1.7L, Total Bilirubin 1.1H, Direct Bilirubin 0.5H, Aspartate Amino Transf (AST/SGOT) 59H, Alanine Aminotransferase (ALT/SGPT) 71, Alkaline Phosphatase 203H, Total Protein 4.7L, Albumin 1.7L, Globulin 3.0, Albumin/Globulin Ratio 0.6L, Random Vancomycin Level 11.2 Height (Feet): 5 Height (Inches): 7.00 Weight (Pounds): 116 General Appearance: no apparent distress EENT: other - vented Cardiovascular: normal rate Respiratory/Chest: decreased breath sounds Abdomen: distended Fox Ho MD May 04, 2019 09:19
[2019-05-04] MEDS ORDERED: LORazepam 0.5mg tab NG PRN (09:30)
[2019-05-04] MEDS: Acetaminophen 650mg/20.3ml NG PRN (10:00)
--- NOTE | 2019-05-04 10:18 | NUR ---
NURSE NOTES: MD DELONG HERE TO SEE PT. INFORMED OF HIGH RESIDUAL, PT FAILED WEANING THIS MORNING, ABG PENDING. WILL PLACE ORDER FOR REGLAN.
--- NOTE | 2019-05-04 10:22 | Pulmonolgy Critical Care Note ---
Critical Care - Asmt/Plan Problems: (1) Septic shock (2) Acute respiratory failure (3) COPD (chronic obstructive pulmonary disease) (4) Hypernatremia (5) Acute kidney injury (6) Hypertension (7) Diabetes mellitus (8) Feeding by G-tube Respiratory: monitor respiratory rate, adjust FIO2 Cardiac: continue to monitor HR/BP Renal: F/U I&O, keep IV fluid, check electrolytes Infectious Disease: check cultures, continue antibiotics Gastrointestinal: continue feedings/current rate Endocrine: monitor blood sugar Hematologic: monitor H/H, transfuse if hgb<8.5 Neurologic: PRN Ativan, keep patient comfortable Affect: PRN ativan Prophylaxis: Heparin Time Spent (Minutes): 40 Notes Reviewed: endless steamer tender, cardio, renal Discussed with: nurses, consultants, case management manageremergency preparedness manager - Objective Last 24 Hour Vital Signs Date Time Temp Pulse Resp B/P (MAP) Pulse Ox O2 Delivery O2 Flow Rate FiO2 05/04/19 09:00 68 16 107/45 (65) 99 05/04/19 08:00 100.5 71 16 92/47 (62) 98 05/04/19 08:00 30 05/04/19 07:30 71 16 30 05/04/19 07:00 62 16 107/48 (67) 99 05/04/19 06:30 75 17 120/53 (75) 99 05/04/19 06:00 74 16 111/45 (67) 100 05/04/19 05:10 63 16 30 05/04/19 05:00 74 16 118/43 (68) 100 05/04/19 04:00 30 05/04/19 04:00 81 16 131/55 (80) 99 05/04/19 04:00 Mechanical Ventilator 05/04/19 04:00 76 05/04/19 03:00 72 16 109/54 (72) 99 05/04/19 02:40 73 16 30 05/04/19 02:00 80 16 119/48 (71) 99 05/04/19 02:00 74 05/04/19 01:00 83 18 134/46 (75) 98 05/04/19 00:45 68 16 30 05/04/19 00:30 73 16 113/44 (67) 100 05/04/19 00:00 30 05/04/19 00:00 Mechanical Ventilator 05/04/19 00:00 71 05/04/19 00:00 99.0 76 16 123/49 (73) 99 05/03/19 23:30 74 16 94/43 (60) 99 05/03/19 23:00 74 16 107/44 (65) 100 05/03/19 22:49 79 16 30 05/03/19 22:30 78 17 106/46 (66) 99 05/03/19 22:00 83 20 113/43 (66) 100 05/03/19 21:30 78 16 92/68 (76) 99 05/03/19 21:00 81 17 113/48 (69) 99 05/03/19 20:47 85 17 30 05/03/19 20:30 85 17 111/65 (80) 98 05/03/19 20:00 99.4 73 16 104/40 (61) 99 05/03/19 20:00 83 05/03/19 20:00 Mechanical Ventilator 05/03/19 20:00 30 05/03/19 19:30 81 17 30 05/03/19 19:00 80 17 115/47 (69) 99 05/03/19 18:30 78 16 101/40 (60) 99 05/03/19 18:00 77 16 100/40 (60) 99 05/03/19 17:00 91 19 125/58 (80) 100 05/03/19 16:52 81 17 30 05/03/19 16:30 82 17 101/43 (62) 99 05/03/19 16:00 80 05/03/19 16:00 30 05/03/19 16:00 Mechanical Ventilator 05/03/19 16:00 99.2 87 17 109/57 (74) 99 05/03/19 15:30 83 18 109/57 (74) 97 05/03/19 15:07 80 16 30 05/03/19 15:00 81 16 104/44 (64) 98 05/03/19 14:00 80 16 103/45 (64) 98 05/03/19 13:30 88 19 109/60 (76) 91 05/03/19 13:00 86 17 98/79 (85) 99 05/03/19 12:58 78 18 30 05/03/19 12:00 82 05/03/19 12:00 Mechanical Ventilator 05/03/19 12:00 98.9 76 16 107/81 (90) 99 05/03/19 12:00 30 05/03/19 11:30 80 17 101/45 (63) 98 05/03/19 11:00 75 16 99/45 (63) 99 05/03/19 10:53 81 17 30 Status: awake Condition: critical HEENT: atraumatic Neck: full ROM Lungs: clear Heart: HR/BP stable Abdomen: soft, active bowel sounds Extremities: no C/C/E Micro: Microbiology Date/Time Source Procedure Growth Status 05/01/19 16:00 Sputum Gram Stain - Final Complete 05/01/19 16:00 Sputum Culture - Final Staphylococcus Aureus - Mrsa Providencia Stuartii Usual Respiratory Sarahi Complete Accucheck: 127 Critical Care - Subjective ROS Limited/Unobtainable: No Condition: critical FI02: 30 Vent Support Breath Rate: 16 Vent Support Mode: AC Vent Tidal Volume: 500 Sputum Amount: Moderate PEEP: 5.0 PIP: 31 Tube Feeding Amount: 50 I&O: Intake and Output 05/03/19 05/04/19 18:59 06:59 Intake Total 2015.0 ml 1482 ml Output Total 410 ml 475 ml Balance 1605.0 ml 1007 ml Intake Oral 550 ml IV Total 1450.0 ml 767 ml Tube Feeding 15 ml 415 ml Blood Product 300 ml Output Urine Total 410 ml 475 ml # Bowel Movements 3 6 CXR: no changes, ET in good position ET-Tube: 7.5 ET Position: 19 Labs: Laboratory Tests Test 05/03/19 16:00 05/04/19 03:25 05/04/19 10:11 Stool Occult Blood Negative (NEGATIVE) White Blood Count 10.7 K/UL (4.8-10.8) Red Blood Count 3.36 M/UL (4.20-5.40) L Hemoglobin 9.9 G/DL (12.0-16.0) L Hematocrit 29.5 % (37.0-47.0) L Mean Corpuscular Volume 88 FL (80-99) Mean Corpuscular Hemoglobin 29.4 PG (27.0-31.0) Mean Corpuscular Hemoglobin Concent 33.4 G/DL (32.0-36.0) Red Cell Distribution Width 16.3 % (11.6-14.8) H Platelet Count 105 K/UL (150-450) L Mean Platelet Volume 8.2 FL (6.5-10.1) Neutrophils (%) (Auto) % (45.0-75.0) Lymphocytes (%) (Auto) % (20.0-45.0) Monocytes (%) (Auto) % (1.0-10.0) Eosinophils (%) (Auto) % (0.0-3.0) Basophils (%) (Auto) % (0.0-2.0) Sodium Level 139 MMOL/L (136-145) Potassium Level 3.2 MMOL/L (3.5-5.1) L Chloride Level 110 MMOL/L (98-107) H Carbon Dioxide Level 21 MMOL/L (21-32) Anion Gap 8 mmol/L (5-15) Blood Urea Nitrogen 34 mg/dL (7-18) H Creatinine 1.2 MG/DL (0.55-1.30) Estimat Glomerular Filtration Rate mL/min (>60) Glucose Level 126 MG/DL (74-106) H Uric Acid 6.1 MG/DL (2.6-7.2) Calcium Level 10.4 MG/DL (8.5-10.1) H Phosphorus Level 2.6 MG/DL (2.5-4.9) Magnesium Level 1.7 MG/DL (1.8-2.4) L Total Bilirubin 1.1 MG/DL (0.2-1.0) H Direct Bilirubin 0.5 MG/DL (0.0-0.3) H Aspartate Amino Transf (AST/SGOT) 59 U/L (15-37) H Alanine Aminotransferase (ALT/SGPT) 71 U/L (12-78) Alkaline Phosphatase 203 U/L (46-116) H Total Protein 4.7 G/DL (6.4-8.2) L Albumin 1.7 G/DL (3.4-5.0) L Globulin 3.0 g/dL Albumin/Globulin Ratio 0.6 (1.0-2.7) L Random Vancomycin Level 11.2 ug/mL Arterial Blood pH 7.454 (7.350-7.450) Arterial Blood Partial Pressure CO2 29.0 mmHg (35.0-45.0) L Arterial Blood Partial Pressure O2 75.7 mmHg (75.0-100.0) Arterial Blood HCO3 19.9 mmol/L (22.0-26.0) L Arterial Blood Oxygen Saturation 94.8 % (95-100) L Arterial Blood Base Excess -3.1 (-2-2) L Silas Test Positive Yancy Lai MD May 04, 2019 10:22
--- NOTE | 2019-05-04 11:06 | Diagnostic Imaging Report ---
Indication: Dyspnea Technique: One view of the chest Comparison: 05/03/2019 Findings: Endotracheal tube projects just barely at the thoracic inlet, tip approximately 8 cm above the guille and appears slightly retracted as compared to prior exam. Left arm PICC remains in place. Lower lung volumes, with atelectatic changes in the right perihilar region, right lung base, left perihilar region and left lung base. The heart size is normal. The aorta is tortuous and calcified. Impression: Somewhat high position of endotracheal tube. Advancement recommended. This finding was discussed by phone with patient's nurse at the time of interpretation Low lung volumes with bilateral atelectatic changes
--- NOTE | 2019-05-04 11:22 | NUR ---
NURSE NOTES: RECEIVED CALL FROM PATRICIA REGARDING ETTUBE POSITION, ORDER TO ADVANCE 3CM, REPEAT CXR. WILL INFORM R.T. ETTUBE CURRENTLY AT 19CM AT LIP.
--- NOTE | 2019-05-04 11:25 | NUR ---
RESPIRATORY NOTE: Advanced ETT 3cm per MD's order. ETT at 22cm lip line now. No SOB or resp distress noted. MONA Starr at bedside and aware.
--- NOTE | 2019-05-04 11:26 | NUR ---
NURSE NOTES: R.T REPOSITION ETTUBE TO 22CM AT LIP, AWAITING CXR. PT IN NO DISTRESS.
--- NOTE | 2019-05-04 11:41 | NUR ---
RD ASSESSMENT & RECOMMENDATIONS SEE CARE ACTIVITY FOR COMPLETE ASSESSMENT DAILY ESTIMATED NEEDS: Needs based on Critical care, wounds; 48.6kg 22- 30 kcals/kg 5949-1915 total kcals 1.25-2 g protein/kg 61-97 g total protein 25-30 mL/kg 0977-3401 total fluid mLs NUTRITION DIAGNOSIS: 1) Increased kcal and pro needs r/t wound healing AEB pt adm w/ multiple wounds, including full thickness sacral wounds, refer to WC eval. 2) Swallowing difficulty r/t respiratory status AEB pt is intubated, Peg dep, TF held for elev residuals. CURRENT TF:Glucerna 1.2 @50-> now held ENTERAL NUTRITION RECOMMENDATIONS: Glucerna 1.2 @ 50mL/hr x 24 hrs to provide 1200mL, 1440kcal, 72g pro, 966mL free H2O - With hemodynamic stability, begin Glucerna 1.2 @ 20mL/hr, progessing 10mL/hr q4-6hrs until @ goal. - HOB >30 degrees, Flush per MD With continued elev residuals, rec TF change to VITAL 1.2 w/ goal rate of 50ml/hr. ADDITIONAL RECOMMENDATIONS: 1) Per SNF: 107 lbs, 60 inches 2) When pt is stable, see TF recs above. 3) Wound care: Add TANYA BID + Vit C 250mg BID 4) Monitor lytes-> replete as needed 5) With continued elevated blood glucose, rec long acting insulin Monitor BG w/ active TF order
--- NOTE | 2019-05-04 11:43 | NUR ---
NURSE NOTES: CALLED MD JIMÉNEZ TO INFORM PT STATUS CONTACT ISOLATION FOR MDR-URINE, MRSA-SPUTUM. AWAITING CALL BACK.
--- NOTE | 2019-05-04 12:00 | NUR ---
NURSE NOTES: LATE ENTRY: PT DROWSY, RESPONSIVE TO DEEP PAIN. PUPILS 3MM, SLUGGISH, GAG PRESENT VS:99.4 AX TEMP. HR 68, RR16, BP 88/39. RECYCLED 107/42. NO JVD. COOL TO TOUCH. BILATERAL RADIAL AND PEDAL PULSES WEAK. RT HAND WEEPING EDEMA. ET-TUBE 7.5, 22cm@LIP. VENT SETTINGS: AC16, VT 500, PEEP5, FI02 30%. SR. LUNG SOUNDS DIMINISHED THROUGHOUT. ORAL SECRETIONS TENACIOUS, CLEAR-SANTIAGO MODERATE AMOUNT. ABDOMEN ROUND, SOFT, BOWEL SOUNDS HYPOACTIVE. GT PATENT, TUBE FEEDING GLUCERNA 1.2, RUNNING AT 50ML/HR. NO BM AT THIS TIME. SKIN- SEE ASSESSMENT. ON P200 MATTRESS. BILATERAL SOFT WRIST RESTRAINTS. CONTACT PRECAUTIONS IN PLACE. BED ALARM ON, LOCKED AND IN LOWEST POSITION. ZONE 2, SIDE RAILS UP X3. EDUCATION ON MEDICATION SIDE EFFECTS. WILL CONTINUE TO IMPLEMENT PLAN OF CARE.
[2019-05-04] MEDS ORDERED: NS 275ml ONE ×4 (12:04→15:23)
[2019-05-04] MEDS ORDERED: Tubing IV Secondary IV ONE ×3 (12:04→15:23)
[2019-05-04] MEDS ORDERED: D5 1/2NS 1000ml IV ONE (12:04)
[2019-05-04] MEDS ORDERED: 1/2 NS 1000ml IV ONE ×2 (12:05→12:10)
[2019-05-04] MEDS ORDERED: Sterile Water Irrig 1000ml IRRIG ONE (12:05)
[2019-05-04] MEDS ORDERED: Tubing IV Blood Pump IV ONE (12:10)
--- NOTE | 2019-05-04 13:00 | NUR ---
NURSE NOTES: LATE ENTRY: PT HR DROPPED TO 38, PT ABLE TO OPEN EYES BUT CLAMMY AND PALE IN APPEARANCE. BP DROPPED TO 80'S/40'S. EKG CONDUCTED. READING NSR AND BP AFTER RECYCLING INCREASED TO 100'S. WILL INFORM MD. WILL CONTINUE TO MONITOR PT CLOSELY.
--- NOTE | 2019-05-04 13:02 | NUR ---
RADIOLOGY DEPT., CHEST X-RAY PERFORMED FOR MALPOSITION OF ETT PLMT.-P.DYE
--- NOTE | 2019-05-04 13:19 | NUR ---
NURSE NOTES: MD TORRE HERE TO SEE PT. PT HAD 1 LOOSE STOOL, OCCULT STOOL NEGATIVE, HIGH RESIDUAL THIS AM, CURRENTLY LESS 50CC, RESTARTED T.F @ 30ML/HR AND WILL ADVANCE TOLERATED. RECOMMENDED REGLAN PRN, BUN 34, CRE 1.2. RECEIVED ORDER TO PLACE REGLAN 10MG IVP Q8HR, PRN FOR HIGH RESIDUALS. Addendum: 05/04/19 at 1539 by Ro Carter RN NON ADMINISTERED CONTRAINDICATION WITH PM MEDICATION ADMINISTRATION. WILL INFORM WHEAT CLEANER.
--- NOTE | 2019-05-04 13:20 | General Progress Note ---
Assessment/Plan Problem List: (1) Acute respiratory failure ICD Codes: J96.00 - Acute respiratory failure, unspecified whether with hypoxia or hypercapnia SNOMED: 13620440 (2) Septic shock ICD Codes: A41.9 - Sepsis, unspecified organism; R65.21 - Severe sepsis with septic shock SNOMED: 61659081, 7327030 (3) Diabetes mellitus ICD Codes: E11.9 - Type 2 diabetes mellitus without complications SNOMED: 38488213 (4) Hypertension ICD Codes: I10 - Essential (primary) hypertension SNOMED: 57046589 (5) COPD (chronic obstructive pulmonary disease) ICD Codes: J44.9 - Chronic obstructive pulmonary disease, unspecified SNOMED: 02988337 (6) Anemia ICD Codes: D64.9 - Anemia, unspecified SNOMED: 621943833 (7) Schizophrenia ICD Codes: F20.9 - Schizophrenia, unspecified SNOMED: 28519669 Status: unchanged Assessment/Plan: vent abx bp bs control cbc bmp am Subjective Constitutional: Reports: weakness Allergies: Coded Allergies: No Known Allergies (Unverified , 05/01/19) All Systems: reviewed and negative except above Subjective intubated sedated in icu Objective Last 24 Hour Vital Signs Date Time Temp Pulse Resp B/P (MAP) Pulse Ox O2 Delivery O2 Flow Rate FiO2 05/04/19 13:00 68 16 95/42 (59) 100 05/04/19 12:15 67 16 107/42 (63) 98 05/04/19 12:00 99.4 68 16 88/39 (55) 99 05/04/19 12:00 Mechanical Ventilator 05/04/19 11:28 30 05/04/19 11:25 77 16 30 05/04/19 11:00 65 16 91/47 (62) 97 05/04/19 10:30 99.4 05/04/19 10:00 99.4 76 17 106/45 (65) 98 05/04/19 09:10 77 16 30 05/04/19 09:00 68 16 107/45 (65) 99 05/04/19 08:00 100.5 71 16 92/47 (62) 98 05/04/19 08:00 30 05/04/19 08:00 68 05/04/19 08:00 Mechanical Ventilator 05/04/19 07:30 71 16 30 05/04/19 07:00 62 16 107/48 (67) 99 05/04/19 06:30 75 17 120/53 (75) 99 05/04/19 06:00 74 16 111/45 (67) 100 05/04/19 05:10 63 16 30 05/04/19 05:00 74 16 118/43 (68) 100 05/04/19 04:00 30 05/04/19 04:00 81 16 131/55 (80) 99 05/04/19 04:00 Mechanical Ventilator 05/04/19 04:00 76 05/04/19 03:00 72 16 109/54 (72) 99 05/04/19 02:40 73 16 30 05/04/19 02:00 80 16 119/48 (71) 99 05/04/19 02:00 74 05/04/19 01:00 83 18 134/46 (75) 98 05/04/19 00:45 68 16 30 05/04/19 00:30 73 16 113/44 (67) 100 05/04/19 00:00 30 05/04/19 00:00 Mechanical Ventilator 05/04/19 00:00 71 05/04/19 00:00 99.0 76 16 123/49 (73) 99 05/03/19 23:30 74 16 94/43 (60) 99 05/03/19 23:00 74 16 107/44 (65) 100 05/03/19 22:49 79 16 30 05/03/19 22:30 78 17 106/46 (66) 99 05/03/19 22:00 83 20 113/43 (66) 100 05/03/19 21:30 78 16 92/68 (76) 99 05/03/19 21:00 81 17 113/48 (69) 99 05/03/19 20:47 85 17 30 05/03/19 20:30 85 17 111/65 (80) 98 05/03/19 20:00 99.4 73 16 104/40 (61) 99 05/03/19 20:00 83 05/03/19 20:00 Mechanical Ventilator 05/03/19 20:00 30 05/03/19 19:30 81 17 30 05/03/19 19:00 80 17 115/47 (69) 99 05/03/19 18:30 78 16 101/40 (60) 99 05/03/19 18:00 77 16 100/40 (60) 99 05/03/19 17:00 91 19 125/58 (80) 100 05/03/19 16:52 81 17 30 05/03/19 16:30 82 17 101/43 (62) 99 05/03/19 16:00 80 05/03/19 16:00 30 05/03/19 16:00 Mechanical Ventilator 05/03/19 16:00 99.2 87 17 109/57 (74) 99 05/03/19 15:30 83 18 109/57 (74) 97 05/03/19 15:07 80 16 30 05/03/19 15:00 81 16 104/44 (64) 98 05/03/19 14:00 80 16 103/45 (64) 98 05/03/19 13:30 88 19 109/60 (76) 91 Intake and Output 05/03/19 05/04/19 19:00 07:00 Intake Total 2092.0 ml 1405 ml Output Total 415 ml 480 ml Balance 1677.0 ml 925 ml Intake Oral 500 ml IV Total 1562.0 ml 655 ml Tube Feeding 30 ml 450 ml Blood Product 300 ml Output Urine Total 415 ml 480 ml # Bowel Movements 4 5 Laboratory Tests 05/03/19 16:00: Stool Occult Blood Negative 05/04/19 03:25: White Blood Count 10.7, Red Blood Count 3.36L, Hemoglobin 9.9L, Hematocrit 29.5L , Mean Corpuscular Volume 88, Mean Corpuscular Hemoglobin 29.4, Mean Corpuscular Hemoglobin Concent 33.4, Red Cell Distribution Width 16.3H, Platelet Count 105L, Mean Platelet Volume 8.2, Neutrophils (%) (Auto) , Lymphocytes (%) (Auto) , Monocytes (%) (Auto) , Eosinophils (%) (Auto) , Basophils (%) (Auto) , Sodium Level 139, Potassium Level 3.2L, Chloride Level 110H, Carbon Dioxide Level 21, Anion Gap 8, Blood Urea Nitrogen 34H, Creatinine 1.2, Estimat Glomerular Filtration Rate , Glucose Level 126H, Uric Acid 6.1, Calcium Level 10.4H, Phosphorus Level 2.6, Magnesium Level 1.7L, Total Bilirubin 1.1H, Direct Bilirubin 0.5H, Aspartate Amino Transf (AST/SGOT) 59H, Alanine Aminotransferase (ALT/SGPT) 71, Alkaline Phosphatase 203H, Total Protein 4.7L, Albumin 1.7L, Globulin 3.0, Albumin/Globulin Ratio 0.6L, Random Vancomycin Level 11.2 05/04/19 10:11: Arterial Blood pH 7.454H, Arterial Blood Partial Pressure CO2 29.0L, Arterial Blood Partial Pressure O2 75.7, Arterial Blood HCO3 19.9L, Arterial Blood Oxygen Saturation 94.8L, Arterial Blood Base Excess -3.1L, Silas Test Positive Height (Feet): 5 Height (Inches): 7.00 Weight (Pounds): 116 General Appearance: lethargic EENT: normal ENT inspection Neck: normal alignment Cardiovascular: normal peripheral pulses, normal rate, regular rhythm Respiratory/Chest: chest wall non-tender, lungs clear, normal breath sounds Abdomen: normal bowel sounds, non tender, soft Extremities: normal inspection Edema: no edema noted Arm (L), no edema noted Arm (R), no edema noted Leg (L), no edema noted Leg (R), no edema noted Pedal (L), no edema noted Pedal (R), no edema noted Generalized Neurologic: motor weakness Skin: normal pigmentation, warm/dry Cosme Chong DO May 04, 2019 13:20
--- NOTE | 2019-05-04 13:25 | GI Progress Note ---
Assessment/Plan Problems: (1) Septic shock ICD Codes: A41.9 - Sepsis, unspecified organism; R65.21 - Severe sepsis with septic shock SNOMED: 10781388, 0085447 (2) Feeding by G-tube ICD Codes: Z93.1 - Gastrostomy status SNOMED: 264728631, 834885030, 942122853 (3) Diabetes mellitus ICD Codes: E11.9 - Type 2 diabetes mellitus without complications SNOMED: 22792529 (4) Anemia ICD Codes: D64.9 - Anemia, unspecified SNOMED: 205436727 Status: unchanged Status Narrative Discussed with Dr. Lau. Assessment/Plan No plans for any GI procedures at this given time given the patient's elevated troponin level and hemodynamic instability. occult blood stool to evaluate for any GI bleed, negative Monitor H&H, PRN transfusions PPI GTFs Electrolyte correction, increase free water flushes for hypernatremia GT site care daily and as needed We will follow on a daily basis with additional recommendations The patient was seen and examined at bedside and all new and available data was reviewed in the patients chart. I agree with the above findings, impression and plan. (Patient seen earlier today. Signature stamp does not reflect patient encounter time.). - Alfredo Lau MD Subjective Subjective limited Objective Last 24 Hour Vital Signs Date Time Temp Pulse Resp B/P (MAP) Pulse Ox O2 Delivery O2 Flow Rate FiO2 05/04/19 13:00 68 16 95/42 (59) 100 05/04/19 12:15 67 16 107/42 (63) 98 05/04/19 12:00 99.4 68 16 88/39 (55) 99 05/04/19 12:00 Mechanical Ventilator 05/04/19 11:28 30 05/04/19 11:25 77 16 30 05/04/19 11:00 65 16 91/47 (62) 97 05/04/19 10:30 99.4 05/04/19 10:00 99.4 76 17 106/45 (65) 98 05/04/19 09:10 77 16 30 05/04/19 09:00 68 16 107/45 (65) 99 05/04/19 08:00 100.5 71 16 92/47 (62) 98 05/04/19 08:00 30 05/04/19 08:00 68 11/7/19 08:00 Mechanical Ventilator 05/04/19 07:30 71 16 30 05/04/19 07:00 62 16 107/48 (67) 99 05/04/19 06:30 75 17 120/53 (75) 99 05/04/19 06:00 74 16 111/45 (67) 100 05/04/19 05:10 63 16 30 05/04/19 05:00 74 16 118/43 (68) 100 05/04/19 04:00 30 05/04/19 04:00 81 16 131/55 (80) 99 05/04/19 04:00 Mechanical Ventilator 05/04/19 04:00 76 05/04/19 03:00 72 16 109/54 (72) 99 05/04/19 02:40 73 16 30 05/04/19 02:00 80 16 119/48 (71) 99 05/04/19 02:00 74 05/04/19 01:00 83 18 134/46 (75) 98 05/04/19 00:45 68 16 30 05/04/19 00:30 73 16 113/44 (67) 100 05/04/19 00:00 30 05/04/19 00:00 Mechanical Ventilator 05/04/19 00:00 71 05/04/19 00:00 99.0 76 16 123/49 (73) 99 05/03/19 23:30 74 16 94/43 (60) 99 05/03/19 23:00 74 16 107/44 (65) 100 05/03/19 22:49 79 16 30 05/03/19 22:30 78 17 106/46 (66) 99 05/03/19 22:00 83 20 113/43 (66) 100 05/03/19 21:30 78 16 92/68 (76) 99 05/03/19 21:00 81 17 113/48 (69) 99 05/03/19 20:47 85 17 30 05/03/19 20:30 85 17 111/65 (80) 98 05/03/19 20:00 99.4 73 16 104/40 (61) 99 05/03/19 20:00 83 05/03/19 20:00 Mechanical Ventilator 05/03/19 20:00 30 05/03/19 19:30 81 17 30 05/03/19 19:00 80 17 115/47 (69) 99 05/03/19 18:30 78 16 101/40 (60) 99 05/03/19 18:00 77 16 100/40 (60) 99 05/03/19 17:00 91 19 125/58 (80) 100 05/03/19 16:52 81 17 30 05/03/19 16:30 82 17 101/43 (62) 99 05/03/19 16:00 80 05/03/19 16:00 30 05/03/19 16:00 Mechanical Ventilator 05/03/19 16:00 99.2 87 17 109/57 (74) 99 05/03/19 15:30 83 18 109/57 (74) 97 05/03/19 15:07 80 16 30 05/03/19 15:00 81 16 104/44 (64) 98 05/03/19 14:00 80 16 103/45 (64) 98 05/03/19 13:30 88 19 109/60 (76) 91 Intake and Output 05/03/19 05/04/19 19:00 07:00 Intake Total 2092.0 ml 1405 ml Output Total 415 ml 480 ml Balance 1677.0 ml 925 ml Intake Oral 500 ml IV Total 1562.0 ml 655 ml Tube Feeding 30 ml 450 ml Blood Product 300 ml Output Urine Total 415 ml 480 ml # Bowel Movements 4 5 Laboratory Tests Test 05/03/19 16:00 05/04/19 03:25 05/04/19 10:11 Stool Occult Blood Negative (NEGATIVE) White Blood Count 10.7 K/UL (4.8-10.8) Red Blood Count 3.36 M/UL (4.20-5.40) L Hemoglobin 9.9 G/DL (12.0-16.0) L Hematocrit 29.5 % (37.0-47.0) L Mean Corpuscular Volume 88 FL (80-99) Mean Corpuscular Hemoglobin 29.4 PG (27.0-31.0) Mean Corpuscular Hemoglobin Concent 33.4 G/DL (32.0-36.0) Red Cell Distribution Width 16.3 % (11.6-14.8) H Platelet Count 105 K/UL (150-450) L Mean Platelet Volume 8.2 FL (6.5-10.1) Neutrophils (%) (Auto) % (45.0-75.0) Lymphocytes (%) (Auto) % (20.0-45.0) Monocytes (%) (Auto) % (1.0-10.0) Eosinophils (%) (Auto) % (0.0-3.0) Basophils (%) (Auto) % (0.0-2.0) Sodium Level 139 MMOL/L (136-145) Potassium Level 3.2 MMOL/L (3.5-5.1) L Chloride Level 110 MMOL/L (98-107) H Carbon Dioxide Level 21 MMOL/L (21-32) Anion Gap 8 mmol/L (5-15) Blood Urea Nitrogen 34 mg/dL (7-18) H Creatinine 1.2 MG/DL (0.55-1.30) Estimat Glomerular Filtration Rate mL/min (>60) Glucose Level 126 MG/DL (74-106) H Uric Acid 6.1 MG/DL (2.6-7.2) Calcium Level 10.4 MG/DL (8.5-10.1) H Phosphorus Level 2.6 MG/DL (2.5-4.9) Magnesium Level 1.7 MG/DL (1.8-2.4) L Total Bilirubin 1.1 MG/DL (0.2-1.0) H Direct Bilirubin 0.5 MG/DL (0.0-0.3) H Aspartate Amino Transf (AST/SGOT) 59 U/L (15-37) H Alanine Aminotransferase (ALT/SGPT) 71 U/L (12-78) Alkaline Phosphatase 203 U/L (46-116) H Total Protein 4.7 G/DL (6.4-8.2) L Albumin 1.7 G/DL (3.4-5.0) L Globulin 3.0 g/dL Albumin/Globulin Ratio 0.6 (1.0-2.7) L Random Vancomycin Level 11.2 ug/mL Arterial Blood pH 7.454 (7.350-7.450) Arterial Blood Partial Pressure CO2 29.0 mmHg (35.0-45.0) L Arterial Blood Partial Pressure O2 75.7 mmHg (75.0-100.0) Arterial Blood HCO3 19.9 mmol/L (22.0-26.0) L Arterial Blood Oxygen Saturation 94.8 % (95-100) L Arterial Blood Base Excess -3.1 (-2-2) L Silas Test Positive Height (Feet): 5 Height (Inches): 7.00 Weight (Pounds): 116 General Appearance: no apparent distress Cardiovascular: normal rate Respiratory/Chest: normal breath sounds, no respiratory distress Abdominal Exam: normal bowel sounds, non tender, soft, GT site - c/d/i Extremities: non-tender Bekah Toro NP May 04, 2019 13:25
--- NOTE | 2019-05-04 13:31 | Diagnostic Imaging Report ---
Indication: Status post repositioning of endotracheal tube Technique: One view of the chest Comparison: 5 hours earlier Findings: Interim repositioning of endotracheal tube, tip now projecting in good position approximately 3 cm above the guille. Left arm PICC again demonstrated. Right mid and lower lung atelectasis and possible hazy consolidation, possible left pleural fluid appears unchanged. Metallic opacity projecting over the left hemidiaphragm is again demonstrated. Impression: Improved and now satisfactory position of endotracheal tube Other findings as noted
--- NOTE | 2019-05-04 14:45 | NUR ---
NURSE NOTES: CALLED MD BECKMAN REGARDING PT HR RHYTHM, SEVERAL EPISODES OF SB LOW 34, ABLE TO GET PT TO OPEN EYES, PT CLAMMY. BP DECREASE TO 88/49. RECYCLED TO 111/55. BEDSIDE EKG OBTAINED, READING NSR, ABNORMAL ST READING. NO NEW ORDERS, CONTINUE TO MONITOR.
--- NOTE | 2019-05-04 16:00 | NUR ---
NURSE NOTES: LATE ENTRY: PT DROWSY, RESPONSIVE TO DEEP PAIN.. RECYCLED 107/42. NO JVD. COOL TO TOUCH. BILATERAL RADIAL AND PEDAL PULSES WEAK. RT HAND WEEPING EDEMA. ET-TUBE 7.5, 22cm@LIP. VENT SETTINGS: AC16, VT 500, PEEP5, FI02 30%. SR. LUNG SOUNDS DIMINISHED THROUGHOUT. ORAL SECRETIONS TENACIOUS, CLEAR-SANTIAGO MODERATE AMOUNT. ABDOMEN ROUND, SOFT, BOWEL SOUNDS HYPOACTIVE. GT PATENT, TUBE FEEDING GLUCERNA 1.2, RUNNING AT 50ML/HR. NO BM AT THIS TIME. BILATERAL SOFT WRIST RESTRAINTS. CONTACT PRECAUTIONS IN PLACE. BED ALARM ON, LOCKED AND IN LOWEST POSITION. ZONE 2, SIDE RAILS UP X3. EDUCATION ON MEDICATION SIDE EFFECTS. WILL CONTINUE TO IMPLEMENT PLAN OF CARE.
--- NOTE | 2019-05-04 16:05 | Infectious Diseases Prog Note ---
Assessment/Plan Assessment/Plan Assessment/Recommendation: Tmax 104.2, improving New leukocytosis after steroid given, SP Lactate 3.4>1.6>2.4>3.3>3.8>1.0 UTI? 05/01 UA 10-15 WBC 05/01 UCx: MDR Klebsiella(R-imipenem, gent, cipro, nitrofurantoin, zosyn, bactrim. I-amikacin) PNA? 05/01 sputum cx: MRSA, Providencia(S-amikacin, cefepime, ceftazidime, cipro, erta, zosyn), normal resp magdalena 05/01 CXR: Right mainstem intubation. Suggest pulling the tube back about 3 cm. Atelectasis of the left lower lobe. Superimposed pneumonia or pleural effusion is not excluded. CHF suspected. 05/01 CXR: Endotracheal tube is 2 cm above the guille in good position. A left subclavian line is also present in good position of the tip projected over the SVC. Pulmonary edema again demonstrated. There is hazy opacity at the left lung base which is probably a pleural effusion. 05/02 CXR: Over one day, interval improvement of previously demonstrated left- sided pleural fluid and interstitial and airspace edema. Parenchymal disease is unchanged on the right. 05/03 CXR: Stable satisfactory positions of endotracheal tube, left arm PICC. Hazy opacities in the right mid and lower lung are probably unchanged. There is a small amount of hazy opacity at the left lung base persisting as well. The heart is normal in size. Allowing for technical differences, findings are overall unchanged r/o bacteremia 05/01 BCx: ngtd MRSA negative VRE negative CRE negative HTN COPD Schizophrenia DM G tube Parkinson CKD Protein calorie malnutrition Dementia Psychosis Gastritis Functional paraplegia Plan: Colistin #1/3-5 Linezolid #1(abx #4) Cefepime #1(abx #4) 05/04 DC Ertapenem, Amikacin, Vancomycin #3 05/01 SP Zosyn #1 steroid per pulm f/u bcx f/u ucx f/u sputum cx aspiration precaution ETT management skin care oral care C diff if diarrhea Thank you for this consult. [facility] will continue to follow the patient with you. Subjective Allergies: Coded Allergies: No Known Allergies (Unverified , 05/01/19) Subjective Tmax 100.5. levophed titrated off for now. HR 50s. FiO2 30% PEEP 5 moderate secretions pasty bowel movement Objective Vital Signs Last 24 Hour Vital Signs Date Time Temp Pulse Resp B/P (MAP) Pulse Ox O2 Delivery O2 Flow Rate FiO2 05/04/19 15:00 70 16 111/48 (69) 100 05/04/19 14:24 75 16 111/55 (73) 100 05/04/19 14:00 63 16 80/38 (52) 97 05/04/19 14:00 63 16 80/38 (52) 97 05/04/19 13:09 76 16 30 05/04/19 13:00 68 16 95/42 (59) 100 05/04/19 12:15 67 16 107/42 (63) 98 05/04/19 12:00 65 05/04/19 12:00 99.4 68 16 88/39 (55) 99 05/04/19 12:00 Mechanical Ventilator 05/04/19 11:28 30 05/04/19 11:25 77 16 30 05/04/19 11:00 65 16 91/47 (62) 97 05/04/19 10:30 99.4 05/04/19 10:00 99.4 76 17 106/45 (65) 98 05/04/19 09:10 77 16 30 05/04/19 09:00 68 16 107/45 (65) 99 05/04/19 08:00 100.5 71 16 92/47 (62) 98 05/04/19 08:00 30 05/04/19 08:00 68 05/04/19 08:00 Mechanical Ventilator 05/04/19 07:30 71 16 30 05/04/19 07:00 62 16 107/48 (67) 99 05/04/19 06:30 75 17 120/53 (75) 99 05/04/19 06:00 74 16 111/45 (67) 100 05/04/19 05:10 63 16 30 05/04/19 05:00 74 16 118/43 (68) 100 05/04/19 04:00 30 05/04/19 04:00 81 16 131/55 (80) 99 05/04/19 04:00 Mechanical Ventilator 05/04/19 04:00 76 05/04/19 03:00 72 16 109/54 (72) 99 05/04/19 02:40 73 16 30 05/04/19 02:00 80 16 119/48 (71) 99 05/04/19 02:00 74 05/04/19 01:00 83 18 134/46 (75) 98 05/04/19 00:45 68 16 30 05/04/19 00:30 73 16 113/44 (67) 100 05/04/19 00:00 30 05/04/19 00:00 Mechanical Ventilator 05/04/19 00:00 71 05/04/19 00:00 99.0 76 16 123/49 (73) 99 05/03/19 23:30 74 16 94/43 (60) 99 05/03/19 23:00 74 16 107/44 (65) 100 05/03/19 22:49 79 16 30 05/03/19 22:30 78 17 106/46 (66) 99 05/03/19 22:00 83 20 113/43 (66) 100 05/03/19 21:30 78 16 92/68 (76) 99 05/03/19 21:00 81 17 113/48 (69) 99 05/03/19 20:47 85 17 30 05/03/19 20:30 85 17 111/65 (80) 98 05/03/19 20:00 99.4 73 16 104/40 (61) 99 05/03/19 20:00 83 05/03/19 20:00 Mechanical Ventilator 05/03/19 20:00 30 05/03/19 19:30 81 17 30 05/03/19 19:00 80 17 115/47 (69) 99 05/03/19 18:30 78 16 101/40 (60) 99 05/03/19 18:00 77 16 100/40 (60) 99 05/03/19 17:00 91 19 125/58 (80) 100 05/03/19 16:52 81 17 30 05/03/19 16:30 82 17 101/43 (62) 99 05/03/19 16:00 80 05/03/19 16:00 30 05/03/19 16:00 Mechanical Ventilator 05/03/19 16:00 99.2 87 17 109/57 (74) 99 Height (Feet): 5 Height (Inches): 7.00 Weight (Pounds): 116 Objective VS: Tmax 104.2 Gen: NAD. twitching HEENT: ETT CV: RRR Resp: RRR. coarse. no wheezes Abd: soft. nondistended. normoactive Bs+ Neuro: not awake Microbiology Date/Time Source Procedure Growth Status 05/01/19 16:00 Sputum Gram Stain - Final Complete 05/01/19 16:00 Sputum Culture - Final Staphylococcus Aureus - Mrsa Providencia Stuartii Usual Respiratory Magdalena Complete Laboratory Tests Test 05/03/19 16:00 05/04/19 03:25 05/04/19 10:11 Stool Occult Blood Negative (NEGATIVE) White Blood Count 10.7 K/UL (4.8-10.8) Red Blood Count 3.36 M/UL (4.20-5.40) L Hemoglobin 9.9 G/DL (12.0-16.0) L Hematocrit 29.5 % (37.0-47.0) L Mean Corpuscular Volume 88 FL (80-99) Mean Corpuscular Hemoglobin 29.4 PG (27.0-31.0) Mean Corpuscular Hemoglobin Concent 33.4 G/DL (32.0-36.0) Red Cell Distribution Width 16.3 % (11.6-14.8) H Platelet Count 105 K/UL (150-450) L Mean Platelet Volume 8.2 FL (6.5-10.1) Neutrophils (%) (Auto) % (45.0-75.0) Lymphocytes (%) (Auto) % (20.0-45.0) Monocytes (%) (Auto) % (1.0-10.0) Eosinophils (%) (Auto) % (0.0-3.0) Basophils (%) (Auto) % (0.0-2.0) Sodium Level 139 MMOL/L (136-145) Potassium Level 3.2 MMOL/L (3.5-5.1) L Chloride Level 110 MMOL/L (98-107) H Carbon Dioxide Level 21 MMOL/L (21-32) Anion Gap 8 mmol/L (5-15) Blood Urea Nitrogen 34 mg/dL (7-18) H Creatinine 1.2 MG/DL (0.55-1.30) Estimat Glomerular Filtration Rate mL/min (>60) Glucose Level 126 MG/DL (74-106) H Uric Acid 6.1 MG/DL (2.6-7.2) Calcium Level 10.4 MG/DL (8.5-10.1) H Phosphorus Level 2.6 MG/DL (2.5-4.9) Magnesium Level 1.7 MG/DL (1.8-2.4) L Total Bilirubin 1.1 MG/DL (0.2-1.0) H Direct Bilirubin 0.5 MG/DL (0.0-0.3) H Aspartate Amino Transf (AST/SGOT) 59 U/L (15-37) H Alanine Aminotransferase (ALT/SGPT) 71 U/L (12-78) Alkaline Phosphatase 203 U/L (46-116) H Total Protein 4.7 G/DL (6.4-8.2) L Albumin 1.7 G/DL (3.4-5.0) L Globulin 3.0 g/dL Albumin/Globulin Ratio 0.6 (1.0-2.7) L Random Vancomycin Level 11.2 ug/mL Arterial Blood pH 7.454 (7.350-7.450) Arterial Blood Partial Pressure CO2 29.0 mmHg (35.0-45.0) L Arterial Blood Partial Pressure O2 75.7 mmHg (75.0-100.0) Arterial Blood HCO3 19.9 mmol/L (22.0-26.0) L Arterial Blood Oxygen Saturation 94.8 % (95-100) L Arterial Blood Base Excess -3.1 (-2-2) L Silas Test Positive Current Medications Medications (Trade) Dose Ordered Sig/Vane Route PRN Reason Start Time Stop Time Status Last Admin Dose Admin Acetaminophen (Tylenol) 650 mg Q4H PRN NG fever 05/04/19 09:30 05/31/19 12:44 05/04/19 10:00 Albuterol/ Ipratropium (Albuterol/ Ipratropium) 3 ml Q4H PRN HHN Shortness of Breath 05/01/19 12:45 05/06/19 12:44 Amikacin Protocol (Amikacin pharmacy to dose) 1 ea DAILY PRN MISC . 05/01/19 12:45 05/31/19 12:44 Amikacin Sulfate 500 mg/Sodium Chloride 112 ml @ 112 mls/hr Q24H IV 05/01/19 18:00 05/08/19 17:59 05/03/19 18:19 Calcitonin [place] (Miacalcin) 1 sprays DAILY NASAL 05/04/19 09:00 06/03/19 08:59 05/04/19 09:02 Chlorhexidine Gluconate (Shanice-Hex 2%) 1 applic DAILY@2000 TOPIC 05/01/19 20:00 05/31/19 19:59 05/03/19 20:18 Dextrose (Dextrose 50%) 25 ml Q30M PRN IV Hypoglycemia 05/02/19 06:30 06/01/19 06:29 Dextrose (Dextrose 50%) 50 ml Q30M PRN IV Hypoglycemia 05/02/19 06:30 06/01/19 06:29 Ertapenem 0.5 gm/ Sodium Chloride 55 ml @ 110 mls/hr Q24H IV 05/01/19 21:00 05/06/19 20:59 05/03/19 20:18 Heparin Sodium (Porcine) (Heparin 5000 units/ml) 5,000 units EVERY 12 HOURS SUBQ 05/01/19 21:00 05/31/19 20:59 05/03/19 20:21 Insulin Aspart (NovoLOG) EVERY 6 HOURS SUBQ 05/02/19 07:30 06/01/19 07:29 05/04/19 13:02 Lorazepam (Ativan 2mg/ml 1ml) 2 mg Q2H PRN IV For Anxiety 05/01/19 12:45 05/08/19 12:44 05/02/19 11:48 Lorazepam (Ativan) 0.5 mg Q6H PRN NG For Anxiety 05/04/19 09:30 05/09/19 07:29 Morphine Sulfate (Morphine Sulfate) 4 mg Q4H PRN IVP Severe Pain (Pain Scale 7-10) 05/01/19 12:45 05/08/19 12:44 05/04/19 12:54 Norepinephrine Bitartrate 4 mg/ Dextrose 254 ml @ 0 mls/hr Q24H IV 05/01/19 12:45 05/31/19 12:44 05/01/19 15:45 Ondansetron HCl (Zofran) 4 mg Q6H PRN IVP Nausea & Vomiting 05/01/19 12:45 05/31/19 12:44 Pantoprazole (Protonix) 40 mg Q12HR IV 05/01/19 21:00 06/01/19 08:59 05/04/19 09:02 Potassium Chloride (K-Dur) 20 meq TWICE A DAY NG 05/04/19 09:18 06/03/19 09:17 05/04/19 09:59 Risperidone (RisperDAL) 0.25 mg QHS PRN GT Agitation 05/02/19 07:30 06/01/19 07:29 Sodium Chloride 1,000 ml @ 75 mls/hr [id number] IV 05/02/19 10:39 06/01/19 10:38 05/04/19 06:06 Vancomycin HCl (Vanco rx to dose) 1 ea DAILY PRN MISC . 05/01/19 12:45 05/31/19 12:44 Vancomycin HCl 750 mg/Dextrose 275 ml @ 183.333 mls/hr DAILY IVPB 05/04/19 09:00 05/09/19 08:59 05/04/19 09:02 Jennifer Palm MD May 04, 2019 16:05
--- NOTE | 2019-05-04 16:15 | Progress Note ---
DATE: 05/04/2019 SUBJECTIVE: The patient is a 78-year-old female patient. She is currently in the ICU. She is confused, disorganized, cognition has declined below baseline that is why her attending physician has requested daily psychiatric consultation. She has septic shock, pulmonary congestion, hypertension, pneumonia, but also with history of paranoid schizophrenia that is why there was a daily psychiatric consultation requested to help stabilize this patient's mood and decline in cognition. MENTAL STATUS EXAMINATION: The patient is a 78-year-old female. Appearance is disheveled. Attitude, irritable and agitated. Affect, guarded and restricted. Intellect poor. Mood, depressed and anxious. Motor activity, psychomotor agitation. Insight and judgment is poor. DIAGNOSIS: Major depressive disorder, severe, recurrent with psychotic features, rule out dementia with psychosis. PLAN: Treat the patient with Risperdal at a dose of 0.5 mg per G-tube at bedtime, Ativan 0.5 mg every 6 hours p.r.n. anxiety, agitation. Chart reviewed. Discussed with staff. Seen and assessed at bedside. A 20 minutes of reality-based supportive psychotherapy provided. A 20 minutes of reality-based supportive psychotherapy. Chart reviewed and discussed with staff. Seen and assessed at bedside. Kristen Rodgers M.D. DR: Wenceslao JOB#: [id number] CC:
--- NOTE | 2019-05-04 17:50 | NUR ---
NURSE NOTES: CALLED MD OTT REGARDING ORDER FOR REGLAN, CONTRAINDICATED, REQUESTING OVERRIDE OR ANOTHER MEDICATION. AWAITING CALL BACK, C.N AWARE.
--- NOTE | 2019-05-04 18:20 | NUR ---
NURSE NOTES: BP DECREASED TO 88/49, MAP 51 AND DECREASING. STARTED LEVOPHED AT 2MCG PER PROTOCOL. BP RESPONDING 89/36 MAP 51.
--- NOTE | 2019-05-04 18:58 | Cardiology Progress Note ---
Assessment/Plan Assessment/Plan 1. Acute febrile illness, sepsis. 2. Hypotension. 3. Possible pneumonia/ respiratory failure acute 4. Urinary tract infection? 5. Hypernatremia. 6. Renal insufficiency and failure. 7. Dementia. 8. G-tube placement. 9. anemia 10. thrombocytopenia 11. lactic acidosis 12. hyperglycemia still mod sig pulm secretion per staff iv abx vent support plt stable abn trop noted cxr personally reviewed looks ok worse today needing pressor now d/w rn pulm toilette echo lv fxn normal ns bolus 250 c c Subjective ROS Limited/Unobtainable: Yes Objective Last 24 Hour Vital Signs Date Time Temp Pulse Resp B/P (MAP) Pulse Ox O2 Delivery O2 Flow Rate FiO2 05/04/19 18:15 85/39 05/04/19 18:00 65 16 88/36 (53) 99 05/04/19 17:04 69 16 30 05/04/19 17:00 66 16 89/39 (56) 98 05/04/19 16:00 30 05/04/19 16:00 65 05/04/19 16:00 Mechanical Ventilator 05/04/19 16:00 100.0 69 16 98/48 (65) 99 05/04/19 15:19 68 16 30 05/04/19 15:00 70 16 111/48 (69) 100 05/04/19 14:24 75 16 111/55 (73) 100 05/04/19 14:00 63 16 80/38 (52) 97 05/04/19 14:00 63 16 80/38 (52) 97 05/04/19 13:09 76 16 30 05/04/19 13:00 68 16 95/42 (59) 100 05/04/19 12:15 67 16 107/42 (63) 98 05/04/19 12:00 65 05/04/19 12:00 99.4 68 16 88/39 (55) 99 05/04/19 12:00 Mechanical Ventilator 05/04/19 11:28 30 05/04/19 11:25 77 16 30 05/04/19 11:00 65 16 91/47 (62) 97 05/04/19 10:30 99.4 05/04/19 10:00 99.4 76 17 106/45 (65) 98 05/04/19 09:10 77 16 30 05/04/19 09:00 68 16 107/45 (65) 99 05/04/19 08:00 100.5 71 16 92/47 (62) 98 05/04/19 08:00 30 05/04/19 08:00 68 05/04/19 08:00 Mechanical Ventilator 05/04/19 07:30 71 16 30 05/04/19 07:00 62 16 107/48 (67) 99 05/04/19 06:30 75 17 120/53 (75) 99 05/04/19 06:00 74 16 111/45 (67) 100 05/04/19 05:10 63 16 30 05/04/19 05:00 74 16 118/43 (68) 100 05/04/19 04:00 30 05/04/19 04:00 81 16 131/55 (80) 99 05/04/19 04:00 Mechanical Ventilator 05/04/19 04:00 76 05/04/19 03:00 72 16 109/54 (72) 99 05/04/19 02:40 73 16 30 05/04/19 02:00 80 16 119/48 (71) 99 05/04/19 02:00 74 05/04/19 01:00 83 18 134/46 (75) 98 05/04/19 00:45 68 16 30 05/04/19 00:30 73 16 113/44 (67) 100 05/04/19 00:00 30 05/04/19 00:00 Mechanical Ventilator 05/04/19 00:00 71 05/04/19 00:00 99.0 76 16 123/49 (73) 99 05/03/19 23:30 74 16 94/43 (60) 99 05/03/19 23:00 74 16 107/44 (65) 100 05/03/19 22:49 79 16 30 05/03/19 22:30 78 17 106/46 (66) 99 05/03/19 22:00 83 20 113/43 (66) 100 05/03/19 21:30 78 16 92/68 (76) 99 05/03/19 21:00 81 17 113/48 (69) 99 05/03/19 20:47 85 17 30 05/03/19 20:30 85 17 111/65 (80) 98 05/03/19 20:00 99.4 73 16 104/40 (61) 99 05/03/19 20:00 83 05/03/19 20:00 Mechanical Ventilator 05/03/19 20:00 30 05/03/19 19:30 81 17 30 05/03/19 19:00 80 17 115/47 (69) 99 General Appearance: no apparent distress, on vent, patient on isolation Cardiovascular: normal rate Respiratory/Chest: lungs clear Abdomen: normal bowel sounds, non tender, soft Extremities: no swelling Intake and Output 05/03/19 05/04/19 19:00 07:00 Intake Total 2092.0 ml 1405 ml Output Total 415 ml 480 ml Balance 1677.0 ml 925 ml Intake Oral 500 ml IV Total 1562.0 ml 655 ml Tube Feeding 30 ml 450 ml Blood Product 300 ml Output Urine Total 415 ml 480 ml # Bowel Movements 4 5 Laboratory Tests Test 05/04/19 03:25 05/04/19 10:11 White Blood Count 10.7 K/UL (4.8-10.8) Red Blood Count 3.36 M/UL (4.20-5.40) L Hemoglobin 9.9 G/DL (12.0-16.0) L Hematocrit 29.5 % (37.0-47.0) L Mean Corpuscular Volume 88 FL (80-99) Mean Corpuscular Hemoglobin 29.4 PG (27.0-31.0) Mean Corpuscular Hemoglobin Concent 33.4 G/DL (32.0-36.0) Red Cell Distribution Width 16.3 % (11.6-14.8) H Platelet Count 105 K/UL (150-450) L Mean Platelet Volume 8.2 FL (6.5-10.1) Neutrophils (%) (Auto) % (45.0-75.0) Lymphocytes (%) (Auto) % (20.0-45.0) Monocytes (%) (Auto) % (1.0-10.0) Eosinophils (%) (Auto) % (0.0-3.0) Basophils (%) (Auto) % (0.0-2.0) Sodium Level 139 MMOL/L (136-145) Potassium Level 3.2 MMOL/L (3.5-5.1) L Chloride Level 110 MMOL/L (98-107) H Carbon Dioxide Level 21 MMOL/L (21-32) Anion Gap 8 mmol/L (5-15) Blood Urea Nitrogen 34 mg/dL (7-18) H Creatinine 1.2 MG/DL (0.55-1.30) Estimat Glomerular Filtration Rate mL/min (>60) Glucose Level 126 MG/DL (74-106) H Uric Acid 6.1 MG/DL (2.6-7.2) Calcium Level 10.4 MG/DL (8.5-10.1) H Phosphorus Level 2.6 MG/DL (2.5-4.9) Magnesium Level 1.7 MG/DL (1.8-2.4) L Total Bilirubin 1.1 MG/DL (0.2-1.0) H Direct Bilirubin 0.5 MG/DL (0.0-0.3) H Aspartate Amino Transf (AST/SGOT) 59 U/L (15-37) H Alanine Aminotransferase (ALT/SGPT) 71 U/L (12-78) Alkaline Phosphatase 203 U/L (46-116) H Total Protein 4.7 G/DL (6.4-8.2) L Albumin 1.7 G/DL (3.4-5.0) L Globulin 3.0 g/dL Albumin/Globulin Ratio 0.6 (1.0-2.7) L Random Vancomycin Level 11.2 ug/mL Arterial Blood pH 7.454 (7.350-7.450) Arterial Blood Partial Pressure CO2 29.0 mmHg (35.0-45.0) L Arterial Blood Partial Pressure O2 75.7 mmHg (75.0-100.0) Arterial Blood HCO3 19.9 mmol/L (22.0-26.0) L Arterial Blood Oxygen Saturation 94.8 % (95-100) L Arterial Blood Base Excess -3.1 (-2-2) L Silas Test Positive Objective Current Medications Medications (Trade) Dose Ordered Sig/Vane Route PRN Reason Start Time Stop Time Status Last Admin Dose Admin Acetaminophen (Tylenol) 650 mg Q4H PRN ORAL fever 05/01/19 12:45 05/31/19 12:44 Albuterol/ Ipratropium (Albuterol/ Ipratropium) 3 ml Q4H PRN HHN Shortness of Breath 05/01/19 12:45 05/06/19 12:44 Amikacin Protocol (Amikacin pharmacy to dose) 1 ea DAILY PRN MISC . 05/01/19 12:45 05/31/19 12:44 Amikacin Sulfate 500 mg/Sodium Chloride 112 ml @ 112 mls/hr Q24H IV 05/01/19 18:00 05/08/19 17:59 05/01/19 18:04 Chlorhexidine Gluconate (Shanice-Hex 2%) 1 applic DAILY@2000 TOPIC 05/01/19 20:00 05/31/19 19:59 05/01/19 19:48 Dextrose (Dextrose 50%) 25 ml Q30M PRN IV Hypoglycemia 05/02/19 06:30 06/01/19 06:29 Dextrose (Dextrose 50%) 50 ml Q30M PRN IV Hypoglycemia 05/02/19 06:30 06/01/19 06:29 Ertapenem 0.5 gm/ Sodium Chloride 55 ml @ 110 mls/hr Q24H IV 05/01/19 21:00 05/06/19 20:59 05/01/19 21:15 Heparin Sodium (Porcine) (Heparin 5000 units/ml) 5,000 units EVERY 12 HOURS SUBQ 05/01/19 21:00 05/31/19 20:59 05/01/19 21:17 Insulin Aspart (NovoLOG) EVERY 6 HOURS SUBQ 05/02/19 07:30 06/01/19 07:29 05/02/19 08:42 Lorazepam (Ativan 2mg/ml 1ml) 2 mg Q2H PRN IV For Anxiety 05/01/19 12:45 05/08/19 12:44 05/02/19 11:48 Lorazepam (Ativan) 0.5 mg Q6H PRN ORAL For Anxiety 05/02/19 07:30 05/09/19 07:29 Magnesium Sulfate 100 ml @ 100 mls/hr Q1H IVPB 05/02/19 10:00 05/02/19 13:59 05/02/19 11:03 Morphine Sulfate (Morphine Sulfate) 4 mg Q4H PRN IVP Severe Pain (Pain Scale 7-10) 05/01/19 12:45 05/08/19 12:44 Norepinephrine Bitartrate 4 mg/ Dextrose 254 ml @ 0 mls/hr Q24H IV 05/01/19 12:45 05/31/19 12:44 05/01/19 15:45 Ondansetron HCl (Zofran) 4 mg Q6H PRN IVP Nausea & Vomiting 05/01/19 12:45 05/31/19 12:44 Pantoprazole (Protonix) 40 mg Q12HR IV 05/01/19 21:00 06/01/19 08:59 05/02/19 08:29 Potassium Phosphate 20 mm/ Sodium Chloride 281.6667 ml @ 46.944 m... ONCE ONCE IV 05/02/19 11:00 05/02/19 16:59 05/02/19 11:02 Potassium Chloride 100 ml @ 100 mls/hr Q1HR IVPB 05/02/19 10:00 05/02/19 13:59 05/02/19 11:02 Risperidone (RisperDAL) 0.25 mg QHS PRN GT Agitation 05/02/19 07:30 06/01/19 07:29 Sodium Chloride 1,000 ml @ 75 mls/hr [id number] IV 05/02/19 10:39 06/01/19 10:38 05/02/19 11:02 Vancomycin HCl (Vanco rx to dose) 1 ea DAILY PRN MISC . 05/01/19 12:45 05/31/19 12:44 Martin Sarmiento MD May 04, 2019 18:58
[2019-05-04] MEDS ORDERED: NS 250 ML IVPB ONE ×2 (19:00→19:15)
--- NOTE | 2019-05-04 19:00 | NUR ---
NURSE NOTES: MD BECKMAN HERE TO SEE PT. WAS INFORMED LEVOPHED STARTED DUE TO HYPOTENSION. RECEIVED ORDER TO INPUT BOLUS 250 ONCE IVP, TAPER OFF LEVO IF POSSIBLE.
--- NOTE | 2019-05-04 19:26 | NUR ---
HAND-OFF: Report given to ROM Cummings PT IN NO ACUTE DISTRESS. ENDORSED F/U FOR MEDICATION TO REDUCE HIGH RESIDUALS
--- NOTE | 2019-05-04 20:00 | NUR ---
NURSE NOTES: received report fr sullivan rn pt orally intubated obtunded on levo drip at 2mcg /min hr 57 sb o2 sat 98 0/0 reposition and suction tube feeding off 150 residual urinary out put 50 cc/hr
[2019-05-04] MEDS: Dyna-Hex 2% Top Sol 2oz TOPIC SCH (20:26)
[2019-05-04] MEDS ORDERED: Cefepime HCl 2 GM in D5W 55 ML IVPB SCH (21:00)
--- NOTE | 2019-05-04 22:00 | NUR ---
NURSE NOTES: condition un change levo drip at 2mcg /min reposition and suction
[2019-05-04] MEDS: Colistin 150mg vial IVP SCH (23:37)
[2019-05-04] MEDS: ERYTHROMYCIN IVPB SCH (23:38)
[2019-05-04] MEDS: NS IVPB SCH (23:38)
[2019-05-05] VITALS (36 sets, daily range): BP systolic 89–136; BP diastolic 35–73
--- NOTE | 2019-05-05 | NUR ---
NURSE NOTES: CONDITION UN CHANGE
--- NOTE | 2019-05-05 02:00 | NUR ---
NURSE NOTES: REPOSITION AND SUCTION NO ACUTE DISTRESS NOTED
--- NOTE | 2019-05-05 04:00 | NUR ---
NURSE NOTES: complete bed bath oral care olga care done levo drip at 1mcg /min reposition and suction
[2019-05-05 05:32] LABS: BASOPHILS % (AUTO) 0.4 % (0.0-2.0); EOSINOPHILS % (AUTO) 1.5 % (0.0-3.0); HEMATOCRIT 29.3 % (37.0-47.0); HEMOGLOBIN 9.8 G/DL (12.0-16.0); MEAN CORPUSCULAR VOLUME 88 FL (80-99); NEUTROPHILS % (AUTO) 84.1 % (45.0-75.0); PLATELET COUNT 116 K/UL (150-450); RED BLOOD COUNT 3.32 M/UL (4.20-5.40); RED CELL DISTRIBUTION WIDTH 16.1 % (11.6-14.8); WHITE BLOOD COUNT 12.3 K/UL (4.8-10.8)
[2019-05-05 05:57] LABS: ALANINE AMINOTRANSFERASE 77 U/L (12-78); ALBUMIN 1.6 G/DL (3.4-5.0); ALBUMIN/GLOBULIN RATIO 0.6 (1.0-2.7); ALKALINE PHOSPHATASE 249 U/L (46-116); ANION GAP 9 mmol/L (5-15); ASPARTATE AMINO TRANSFERASE 26 U/L (15-37); BILIRUBIN,TOTAL 0.9 MG/DL (0.2-1.0); BLOOD UREA NITROGEN 28 mg/dL (7-18); CALCIUM 9.9 MG/DL (8.5-10.1); CARBON DIOXIDE 20 MMOL/L (21-32); CHLORIDE 110 MMOL/L (98-107); PHOSPHORUS 2.3 MG/DL (2.5-4.9); POTASSIUM 4.2 MMOL/L (3.5-5.1); SODIUM 139 MMOL/L (136-145)
[2019-05-05] MEDS: NovoLOG Insulin Flexpen SUBQ SCH ×3 (05:58→17:58)
--- NOTE | 2019-05-05 06:00 | NUR ---
NURSE NOTES: reposition and suction tolerating tube feeding no acute distress noted
--- NOTE | 2019-05-05 07:00 | NUR ---
HAND-OFF: Report given to laurie werner using sbar.
--- NOTE | 2019-05-05 07:15 | NUR ---
NURSE NOTES: Report received from Yanira DUNN. Pt lethargic, responds to light stimulation. Pt orally intubated ETT 7.5, 22 cm lip line, AC 16, TV 500, 30% PEEP 5. Glucerna running per GT at 15 cc/hr, no residual noted. Hilario noted and intact with clear yellow urine to gravity. PICC COURTNEY noted and intact with 1/2 NS at 75 cc/hr and Levophed started at 2 mcg/min. Safety measures in place with bed locked and in lowest position, side rails x 3 up and bed alarm on. Will continue to monitor and continue plan of care.
[2019-05-05] MEDS: ERYTHROMYCIN IVPB SCH (08:49)
[2019-05-05] MEDS: NS IVPB SCH (08:49)
[2019-05-05] MEDS: Pantoprazole Inj IV SCH ×2 (08:49→20:33)
[2019-05-05] MEDS: Colistin 150mg vial IVP SCH (08:50)
[2019-05-05] MEDS: Heparin 5000 units/ml inj SUBQ SCH ×2 (08:57→20:33)
--- NOTE | 2019-05-05 09:30 | NUR ---
NURSE NOTES: Dr Lai here to see. Dr informed that pt failed weaning this am, pt only lasted 3 minutes. may consider trache. Will continue to monitor.
--- NOTE | 2019-05-05 09:40 | General Progress Note ---
Assessment/Plan Problem List: (1) Acute respiratory failure ICD Codes: J96.00 - Acute respiratory failure, unspecified whether with hypoxia or hypercapnia SNOMED: 50556284 (2) Septic shock ICD Codes: A41.9 - Sepsis, unspecified organism; R65.21 - Severe sepsis with septic shock SNOMED: 89216376, 9143096 (3) Diabetes mellitus ICD Codes: E11.9 - Type 2 diabetes mellitus without complications SNOMED: 12856801 (4) Hypertension ICD Codes: I10 - Essential (primary) hypertension SNOMED: 38394229 (5) COPD (chronic obstructive pulmonary disease) ICD Codes: J44.9 - Chronic obstructive pulmonary disease, unspecified SNOMED: 39857916 (6) Anemia ICD Codes: D64.9 - Anemia, unspecified SNOMED: 746416725 (7) Schizophrenia ICD Codes: F20.9 - Schizophrenia, unspecified SNOMED: 17264232 Status: unchanged Assessment/Plan: vent abx bp bs control cbc bmp am Subjective Constitutional: Reports: weakness Allergies: Coded Allergies: No Known Allergies (Unverified , 05/01/19) All Systems: reviewed and negative except above Subjective intubated sedated in icu Objective Last 24 Hour Vital Signs Date Time Temp Pulse Resp B/P (MAP) Pulse Ox O2 Delivery O2 Flow Rate FiO2 05/05/19 09:00 74 16 116/36 (62) 99 05/05/19 08:30 65 16 113/42 (65) 97 05/05/19 08:00 Mechanical Ventilator 05/05/19 08:00 99.0 65 16 118/44 (68) 100 05/05/19 08:00 30 05/05/19 08:00 60 05/05/19 07:30 66 16 117/60 (79) 100 05/05/19 07:00 68 16 110/44 (66) 88 05/05/19 07:00 108/48 05/05/19 06:55 61 16 30 05/05/19 06:30 59 16 109/42 (64) 99 05/05/19 06:00 102/49 05/05/19 06:00 97.8 70 15 102/48 (66) 92 05/05/19 05:30 65 17 110/46 (67) 99 05/05/19 05:15 63 16 30 05/05/19 05:00 108/45 05/05/19 05:00 59 16 108/42 (64) 100 05/05/19 04:30 60 16 136/47 (76) 100 05/05/19 04:00 Mechanical Ventilator 05/05/19 04:00 63 05/05/19 04:00 136/43 05/05/19 04:00 74 17 90/72 (78) 99 05/05/19 04:00 30 05/05/19 03:30 58 16 122/43 (69) 99 05/05/19 03:00 54 16 103/55 (71) 99 05/05/19 03:00 55 16 30 05/05/19 03:00 122/43 05/05/19 02:30 54 16 117/46 (69) 99 05/05/19 02:00 56 16 101/47 (65) 100 05/05/19 02:00 117/56 05/05/19 01:30 57 16 108/42 (64) 99 05/05/19 01:29 64 16 30 05/05/19 01:00 108/42 05/05/19 01:00 57 16 108/44 (65) 98 05/05/19 00:30 56 16 98/40 (59) 99 05/05/19 00:00 56 05/05/19 00:00 98/40 05/05/19 00:00 99.5 60 16 104/42 (62) 99 05/05/19 00:00 Mechanical Ventilator 05/05/19 00:00 30 05/04/19 23:30 57 16 103/41 (61) 100 05/04/19 23:10 59 16 30 05/04/19 23:00 58 16 108/42 (64) 99 05/04/19 23:00 94/51 05/04/19 22:30 56 16 98/41 (60) 99 05/04/19 22:00 103/41 05/04/19 22:00 56 16 101/39 (59) 99 05/04/19 21:30 57 16 91/37 (55) 98 05/04/19 21:00 58 16 95/39 (57) 97 05/04/19 21:00 91/37 05/04/19 20:49 58 16 30 05/04/19 20:30 58 16 94/38 (56) 98 11/7/19 20:00 94/45 05/04/19 20:00 99.5 60 16 96/45 (62) 98 05/04/19 20:00 30 05/04/19 20:00 Mechanical Ventilator 05/04/19 20:00 59 05/04/19 19:30 62 16 100/40 (60) 99 05/04/19 19:29 61 16 30 05/04/19 19:00 62 16 128/42 (70) 98 05/04/19 19:00 91/39 05/04/19 18:30 88/49 05/04/19 18:15 85/39 05/04/19 18:00 65 16 88/36 (53) 99 05/04/19 17:04 69 16 30 05/04/19 17:00 66 16 89/39 (56) 98 05/04/19 16:00 30 05/04/19 16:00 65 05/04/19 16:00 Mechanical Ventilator 05/04/19 16:00 100.0 69 16 98/48 (65) 99 05/04/19 15:19 68 16 30 05/04/19 15:00 70 16 111/48 (69) 100 05/04/19 14:24 75 16 111/55 (73) 100 05/04/19 14:00 63 16 80/38 (52) 97 05/04/19 14:00 63 16 80/38 (52) 97 05/04/19 13:09 76 16 30 05/04/19 13:00 68 16 95/42 (59) 100 05/04/19 12:15 67 16 107/42 (63) 98 05/04/19 12:00 65 05/04/19 12:00 99.4 68 16 88/39 (55) 99 05/04/19 12:00 Mechanical Ventilator 05/04/19 11:28 30 05/04/19 11:25 77 16 30 05/04/19 11:00 65 16 91/47 (62) 97 05/04/19 10:30 99.4 05/04/19 10:00 99.4 76 17 106/45 (65) 98 Intake and Output 05/04/19 05/05/19 18:59 06:59 Intake Total 1894.286 ml 1255.39 ml Output Total 440 ml 660 ml Balance 1454.286 ml 595.39 ml IV Total 1649.286 ml 1210.39 ml Tube Feeding 245 ml 45 ml Output Urine Total 440 ml 660 ml # Bowel Movements 3 4 Laboratory Tests 05/04/19 10:11: Arterial Blood pH 7.454H, Arterial Blood Partial Pressure CO2 29.0L, Arterial Blood Partial Pressure O2 75.7, Arterial Blood HCO3 19.9L, Arterial Blood Oxygen Saturation 94.8L, Arterial Blood Base Excess -3.1L, Silas Test Positive 05/05/19 04:40: White Blood Count 12.3H, Red Blood Count 3.32L, Hemoglobin 9.8L, Hematocrit 29.3L, Mean Corpuscular Volume 88, Mean Corpuscular Hemoglobin 29.6, Mean Corpuscular Hemoglobin Concent 33.5, Red Cell Distribution Width 16.1H, Platelet Count 116L, Mean Platelet Volume 8.3, Neutrophils (%) (Auto) 84.1H, Lymphocytes (%) (Auto) 10.0L, Monocytes (%) (Auto) 4.0, Eosinophils (%) (Auto) 1.5, Basophils (%) (Auto) 0.4, Sodium Level 139, Potassium Level 4.2, Chloride Level 110H, Carbon Dioxide Level 20L, Anion Gap 9, Blood Urea Nitrogen 28H, Creatinine 1.0, Estimat Glomerular Filtration Rate , Glucose Level 154H, Uric Acid 5.5, Calcium Level 9.9, Phosphorus Level 2.3L, Magnesium Level 1.8, Total Bilirubin 0.9, Aspartate Amino Transf (AST/SGOT) 26, Alanine Aminotransferase ( ALT/SGPT) 77, Alkaline Phosphatase 249H, Total Protein 4.5L, Albumin 1.6L, Globulin 2.9, Albumin/Globulin Ratio 0.6L 05/05/19 05:21: Arterial Blood pH 7.472H, Arterial Blood Partial Pressure CO2 26.6L, Arterial Blood Partial Pressure O2 82.4, Arterial Blood HCO3 19.0L, Arterial Blood Oxygen Saturation 96.0, Arterial Blood Base Excess -3.5L, Silas Test Positive Height (Feet): 5 Height (Inches): 7.00 Weight (Pounds): 124 General Appearance: lethargic EENT: normal ENT inspection Neck: normal alignment Cardiovascular: normal peripheral pulses, normal rate, regular rhythm Respiratory/Chest: chest wall non-tender, lungs clear, normal breath sounds Abdomen: normal bowel sounds, non tender, soft Extremities: normal inspection Edema: no edema noted Arm (L), no edema noted Arm (R), no edema noted Leg (L), no edema noted Leg (R), no edema noted Pedal (L), no edema noted Pedal (R), no edema noted Generalized Neurologic: motor weakness Skin: normal pigmentation, warm/dry Cosme Chong DO May 05, 2019 09:40
--- NOTE | 2019-05-05 09:53 | Nephrology Progress Note ---
Assessment/Plan Problem List: (1) Hypercalcemia Assessment: improving (2) Septic shock (3) Acute kidney injury (4) Acute respiratory failure (5) Dehydration (6) Anemia Assessment Acute renal failure Dehydration / HyperNatremia / HyperCalcemia Septic Shock Respiratory failure / COPD NSTEMI DM PEG Schizophrenia Anemia Plan Aredia 90 mg IV and Nasal Calcitonin correct lytes prn Lasix IV fluid change to 1/2 NS K and Phos and Mag supplement as needed monitor renal parameters and Calcium urine studies anemia au avoid Nephrotoxics Subjective ROS Limited/Unobtainable: Yes Objective Objective Last 24 Hour Vital Signs Date Time Temp Pulse Resp B/P (MAP) Pulse Ox O2 Delivery O2 Flow Rate FiO2 05/05/19 09:30 75 19 112/40 (64) 97 05/05/19 09:06 73 16 30 05/05/19 09:00 74 16 116/36 (62) 99 05/05/19 08:30 65 16 113/42 (65) 97 05/05/19 08:00 Mechanical Ventilator 05/05/19 08:00 99.0 65 16 118/44 (68) 100 05/05/19 08:00 30 05/05/19 08:00 60 05/05/19 07:30 66 16 117/60 (79) 100 05/05/19 07:00 68 16 110/44 (66) 88 05/05/19 07:00 108/48 05/05/19 06:55 61 16 30 05/05/19 06:30 59 16 109/42 (64) 99 05/05/19 06:00 102/49 05/05/19 06:00 97.8 70 15 102/48 (66) 92 05/05/19 05:30 65 17 110/46 (67) 99 05/05/19 05:15 63 16 30 05/05/19 05:00 108/45 05/05/19 05:00 59 16 108/42 (64) 100 05/05/19 04:30 60 16 136/47 (76) 100 05/05/19 04:00 Mechanical Ventilator 05/05/19 04:00 63 05/05/19 04:00 136/43 05/05/19 04:00 74 17 90/72 (78) 99 05/05/19 04:00 30 05/05/19 03:30 58 16 122/43 (69) 99 05/05/19 03:00 54 16 103/55 (71) 99 05/05/19 03:00 55 16 30 05/05/19 03:00 122/43 05/05/19 02:30 54 16 117/46 (69) 99 05/05/19 02:00 56 16 101/47 (65) 100 05/05/19 02:00 117/56 05/05/19 01:30 57 16 108/42 (64) 99 05/05/19 01:29 64 16 30 05/05/19 01:00 108/42 05/05/19 01:00 57 16 108/44 (65) 98 05/05/19 00:30 56 16 98/40 (59) 99 05/05/19 00:00 56 05/05/19 00:00 98/40 05/05/19 00:00 99.5 60 16 104/42 (62) 99 05/05/19 00:00 Mechanical Ventilator 05/05/19 00:00 30 05/04/19 23:30 57 16 103/41 (61) 100 05/04/19 23:10 59 16 30 05/04/19 23:00 58 16 108/42 (64) 99 05/04/19 23:00 94/51 05/04/19 22:30 56 16 98/41 (60) 99 05/04/19 22:00 103/41 05/04/19 22:00 56 16 101/39 (59) 99 05/04/19 21:30 57 16 91/37 (55) 98 05/04/19 21:00 58 16 95/39 (57) 97 05/04/19 21:00 91/37 05/04/19 20:49 58 16 30 05/04/19 20:30 58 16 94/38 (56) 98 05/04/19 20:00 94/45 05/04/19 20:00 99.5 60 16 96/45 (62) 98 05/04/19 20:00 30 05/04/19 20:00 Mechanical Ventilator 05/04/19 20:00 59 05/04/19 19:30 62 16 100/40 (60) 99 05/04/19 19:29 61 16 30 05/04/19 19:00 62 16 128/42 (70) 98 05/04/19 19:00 91/39 05/04/19 18:30 88/49 05/04/19 18:15 85/39 05/04/19 18:00 65 16 88/36 (53) 99 05/04/19 17:04 69 16 30 05/04/19 17:00 66 16 89/39 (56) 98 05/04/19 16:00 30 05/04/19 16:00 65 05/04/19 16:00 Mechanical Ventilator 05/04/19 16:00 100.0 69 16 98/48 (65) 99 05/04/19 15:19 68 16 30 05/04/19 15:00 70 16 111/48 (69) 100 05/04/19 14:24 75 16 111/55 (73) 100 05/04/19 14:00 63 16 80/38 (52) 97 05/04/19 14:00 63 16 80/38 (52) 97 05/04/19 13:09 76 16 30 05/04/19 13:00 68 16 95/42 (59) 100 05/04/19 12:15 67 16 107/42 (63) 98 05/04/19 12:00 65 05/04/19 12:00 99.4 68 16 88/39 (55) 99 05/04/19 12:00 Mechanical Ventilator 05/04/19 11:28 30 05/04/19 11:25 77 16 30 05/04/19 11:00 65 16 91/47 (62) 97 05/04/19 10:30 99.4 05/04/19 10:00 99.4 76 17 106/45 (65) 98 Intake and Output 05/04/19 05/05/19 18:59 06:59 Intake Total 1894.286 ml 1255.39 ml Output Total 440 ml 660 ml Balance 1454.286 ml 595.39 ml IV Total 1649.286 ml 1210.39 ml Tube Feeding 245 ml 45 ml Output Urine Total 440 ml 660 ml # Bowel Movements 3 4 Laboratory Tests 05/04/19 10:11: Arterial Blood pH 7.454H, Arterial Blood Partial Pressure CO2 29.0L, Arterial Blood Partial Pressure O2 75.7, Arterial Blood HCO3 19.9L, Arterial Blood Oxygen Saturation 94.8L, Arterial Blood Base Excess -3.1L, Silas Test Positive 05/05/19 04:40: White Blood Count 12.3H, Red Blood Count 3.32L, Hemoglobin 9.8L, Hematocrit 29.3L, Mean Corpuscular Volume 88, Mean Corpuscular Hemoglobin 29.6, Mean Corpuscular Hemoglobin Concent 33.5, Red Cell Distribution Width 16.1H, Platelet Count 116L, Mean Platelet Volume 8.3, Neutrophils (%) (Auto) 84.1H, Lymphocytes (%) (Auto) 10.0L, Monocytes (%) (Auto) 4.0, Eosinophils (%) (Auto) 1.5, Basophils (%) (Auto) 0.4, Sodium Level 139, Potassium Level 4.2, Chloride Level 110H, Carbon Dioxide Level 20L, Anion Gap 9, Blood Urea Nitrogen 28H, Creatinine 1.0, Estimat Glomerular Filtration Rate , Glucose Level 154H, Uric Acid 5.5, Calcium Level 9.9, Phosphorus Level 2.3L, Magnesium Level 1.8, Total Bilirubin 0.9, Aspartate Amino Transf (AST/SGOT) 26, Alanine Aminotransferase ( ALT/SGPT) 77, Alkaline Phosphatase 249H, Total Protein 4.5L, Albumin 1.6L, Globulin 2.9, Albumin/Globulin Ratio 0.6L 05/05/19 05:21: Arterial Blood pH 7.472H, Arterial Blood Partial Pressure CO2 26.6L, Arterial Blood Partial Pressure O2 82.4, Arterial Blood HCO3 19.0L, Arterial Blood Oxygen Saturation 96.0, Arterial Blood Base Excess -3.5L, Silas Test Positive Height (Feet): 5 Height (Inches): 7.00 Weight (Pounds): 124 General Appearance: no apparent distress EENT: other - vented Cardiovascular: normal rate Respiratory/Chest: decreased breath sounds Abdomen: distended Fox Ho MD May 05, 2019 09:53
--- NOTE | 2019-05-05 10:07 | Diagnostic Imaging Report ---
Indication: Dyspnea Comparison: 05/04/2019 A single view chest radiograph was obtained. Findings: There is suggestion of mild basal atelectasis which has improved. Pneumonia is not entirely excludable. PICC line and endotracheal tube appear stable. Heart size is normal. IMPRESSION: Basal infiltrate versus atelectasis improved somewhat compared to the previous day.
--- NOTE | 2019-05-05 10:13 | Pulmonolgy Critical Care Note ---
Critical Care - Asmt/Plan Problems: (1) Septic shock (2) Acute respiratory failure (3) COPD (chronic obstructive pulmonary disease) (4) Hypernatremia (5) Acute kidney injury (6) Hypertension (7) Diabetes mellitus (8) Feeding by G-tube Respiratory: monitor respiratory rate, adjust FIO2, CXR Cardiac: continue to monitor HR/BP Renal: F/U I&O, keep IV fluid, check electrolytes Infectious Disease: check cultures Gastrointestinal: continue feedings/current rate Endocrine: monitor blood sugar, check HgA1C Neurologic: keep patient comfortable Affect: PRN ativan Prophylaxis: Protonix Notes Reviewed: snowboarding instructor Discussed with: nurses, consultants, case management rndelivery manager - Objective Last 24 Hour Vital Signs Date Time Temp Pulse Resp B/P (MAP) Pulse Ox O2 Delivery O2 Flow Rate FiO2 05/05/19 09:30 75 19 112/40 (64) 97 05/05/19 09:06 73 16 30 05/05/19 09:00 74 16 116/36 (62) 99 05/05/19 08:30 65 16 113/42 (65) 97 05/05/19 08:00 Mechanical Ventilator 05/05/19 08:00 99.0 65 16 118/44 (68) 100 05/05/19 08:00 30 05/05/19 08:00 60 05/05/19 07:30 66 16 117/60 (79) 100 05/05/19 07:00 68 16 110/44 (66) 88 05/05/19 07:00 108/48 05/05/19 06:55 61 16 30 05/05/19 06:30 59 16 109/42 (64) 99 05/05/19 06:00 102/49 05/05/19 06:00 97.8 70 15 102/48 (66) 92 05/05/19 05:30 65 17 110/46 (67) 99 05/05/19 05:15 63 16 30 05/05/19 05:00 108/45 05/05/19 05:00 59 16 108/42 (64) 100 05/05/19 04:30 60 16 136/47 (76) 100 05/05/19 04:00 Mechanical Ventilator 05/05/19 04:00 63 05/05/19 04:00 136/43 05/05/19 04:00 74 17 90/72 (78) 99 05/05/19 04:00 30 05/05/19 03:30 58 16 122/43 (69) 99 05/05/19 03:00 54 16 103/55 (71) 99 05/05/19 03:00 55 16 30 05/05/19 03:00 122/43 05/05/19 02:30 54 16 117/46 (69) 99 05/05/19 02:00 56 16 101/47 (65) 100 05/05/19 02:00 117/56 05/05/19 01:30 57 16 108/42 (64) 99 05/05/19 01:29 64 16 30 05/05/19 01:00 108/42 05/05/19 01:00 57 16 108/44 (65) 98 05/05/19 00:30 56 16 98/40 (59) 99 05/05/19 00:00 56 05/05/19 00:00 98/40 05/05/19 00:00 99.5 60 16 104/42 (62) 99 05/05/19 00:00 Mechanical Ventilator 05/05/19 00:00 30 05/04/19 23:30 57 16 103/41 (61) 100 05/04/19 23:10 59 16 30 05/04/19 23:00 58 16 108/42 (64) 99 05/04/19 23:00 94/51 05/04/19 22:30 56 16 98/41 (60) 99 05/04/19 22:00 103/41 05/04/19 22:00 56 16 101/39 (59) 99 05/04/19 21:30 57 16 91/37 (55) 98 05/04/19 21:00 58 16 95/39 (57) 97 05/04/19 21:00 91/37 05/04/19 20:49 58 16 30 05/04/19 20:30 58 16 94/38 (56) 98 05/04/19 20:00 94/45 05/04/19 20:00 99.5 60 16 96/45 (62) 98 05/04/19 20:00 30 05/04/19 20:00 Mechanical Ventilator 05/04/19 20:00 59 05/04/19 19:30 62 16 100/40 (60) 99 05/04/19 19:29 61 16 30 05/04/19 19:00 62 16 128/42 (70) 98 05/04/19 19:00 91/39 05/04/19 18:30 88/49 05/04/19 18:15 85/39 05/04/19 18:00 65 16 88/36 (53) 99 05/04/19 17:04 69 16 30 05/04/19 17:00 66 16 89/39 (56) 98 05/04/19 16:00 30 05/04/19 16:00 65 05/04/19 16:00 Mechanical Ventilator 05/04/19 16:00 100.0 69 16 98/48 (65) 99 05/04/19 15:19 68 16 30 05/04/19 15:00 70 16 111/48 (69) 100 05/04/19 14:24 75 16 111/55 (73) 100 05/04/19 14:00 63 16 80/38 (52) 97 05/04/19 14:00 63 16 80/38 (52) 97 05/04/19 13:09 76 16 30 05/04/19 13:00 68 16 95/42 (59) 100 05/04/19 12:15 67 16 107/42 (63) 98 05/04/19 12:00 65 05/04/19 12:00 99.4 68 16 88/39 (55) 99 05/04/19 12:00 Mechanical Ventilator 05/04/19 11:28 30 05/04/19 11:25 77 16 30 05/04/19 11:00 65 16 91/47 (62) 97 05/04/19 10:30 99.4 Status: awake Condition: critical HEENT: atraumatic Neck: full ROM Lungs: rales, rhonchi Heart: HR/BP stable Abdomen: soft, feeding tube Extremities: edema Decubiti: stage Accucheck: 127 Critical Care - Subjective Condition: critical EKG Rhythm: Sinus Rhythm FI02: 30 Vent Support Breath Rate: 16 Vent Support Mode: AC Vent Tidal Volume: 500 Sputum Amount: Scant PEEP: 5.0 PIP: 29 Tube Feeding Amount: 15 I&O: Intake and Output 05/04/19 05/05/19 18:59 06:59 Intake Total 1894.286 ml 1255.39 ml Output Total 440 ml 660 ml Balance 1454.286 ml 595.39 ml IV Total 1649.286 ml 1210.39 ml Tube Feeding 245 ml 45 ml Output Urine Total 440 ml 660 ml # Bowel Movements 3 4 ET-Tube: 7.5 ET Position: 22 Labs: Laboratory Tests Test 05/05/19 04:40 05/05/19 05:21 White Blood Count 12.3 K/UL (4.8-10.8) H Red Blood Count 3.32 M/UL (4.20-5.40) L Hemoglobin 9.8 G/DL (12.0-16.0) L Hematocrit 29.3 % (37.0-47.0) L Mean Corpuscular Volume 88 FL (80-99) Mean Corpuscular Hemoglobin 29.6 PG (27.0-31.0) Mean Corpuscular Hemoglobin Concent 33.5 G/DL (32.0-36.0) Red Cell Distribution Width 16.1 % (11.6-14.8) H Platelet Count 116 K/UL (150-450) L Mean Platelet Volume 8.3 FL (6.5-10.1) Neutrophils (%) (Auto) 84.1 % (45.0-75.0) H Lymphocytes (%) (Auto) 10.0 % (20.0-45.0) L Monocytes (%) (Auto) 4.0 % (1.0-10.0) Eosinophils (%) (Auto) 1.5 % (0.0-3.0) Basophils (%) (Auto) 0.4 % (0.0-2.0) Sodium Level 139 MMOL/L (136-145) Potassium Level 4.2 MMOL/L (3.5-5.1) Chloride Level 110 MMOL/L (98-107) H Carbon Dioxide Level 20 MMOL/L (21-32) L Anion Gap 9 mmol/L (5-15) Blood Urea Nitrogen 28 mg/dL (7-18) H Creatinine 1.0 MG/DL (0.55-1.30) Estimat Glomerular Filtration Rate mL/min (>60) Glucose Level 154 MG/DL (74-106) H Uric Acid 5.5 MG/DL (2.6-7.2) Calcium Level 9.9 MG/DL (8.5-10.1) Phosphorus Level 2.3 MG/DL (2.5-4.9) L Magnesium Level 1.8 MG/DL (1.8-2.4) Total Bilirubin 0.9 MG/DL (0.2-1.0) Aspartate Amino Transf (AST/SGOT) 26 U/L (15-37) Alanine Aminotransferase (ALT/SGPT) 77 U/L (12-78) Alkaline Phosphatase 249 U/L (46-116) H Total Protein 4.5 G/DL (6.4-8.2) L Albumin 1.6 G/DL (3.4-5.0) L Globulin 2.9 g/dL Albumin/Globulin Ratio 0.6 (1.0-2.7) L Arterial Blood pH 7.472 (7.350-7.450) Arterial Blood Partial Pressure CO2 26.6 mmHg (35.0-45.0) L Arterial Blood Partial Pressure O2 82.4 mmHg (75.0-100.0) Arterial Blood HCO3 19.0 mmol/L (22.0-26.0) L Arterial Blood Oxygen Saturation 96.0 % (95-100) Arterial Blood Base Excess -3.5 (-2-2) L Silas Test Positive Yancy Lai MD May 05, 2019 10:13
--- NOTE | 2019-05-05 11:28 | Cardiology Report ---
APPROVED REPORT EKG Measurement Heart [id number] Sinus rhythm with premature atrial complexes Nonspecific T wave abnormality Abnormal ECG
--- NOTE | 2019-05-05 11:40 | Cardiology Report ---
APPROVED REPORT EKG Measurement Heart [id number] Sinus tachycardia with premature atrial complexes with aberrant conduction Possible Left atrial enlargement Left ventricular hypertrophy with repolarization abnormality Abnormal ECG
--- NOTE | 2019-05-05 11:48 | NUR ---
NURSE NOTES: Pt turned and repositioned. Pt suctioned and oral care done. Levophed turned off because BP is 100s/60s. Will continue to monitor.
[2019-05-05] MEDS ORDERED: Sodium Phosphate 30 MM in NS 275 ML IVPB ONE (12:00)
[2019-05-05] MEDS: Erythromycin Ethylsuccinate 200mg/5ml Susp GT SCH ×2 (14:16→22:16)
--- NOTE | 2019-05-05 14:30 | NUR ---
NURSE NOTES: Pt suctioned. Bite block placed because pt is biting on tubes. Dr Palm here to see pt. No new orders. Will continue to monitor.
--- NOTE | 2019-05-05 14:42 | Infectious Diseases Prog Note ---
Assessment/Plan Assessment/Plan Assessment/Recommendation: Tmax 104.2, improving New leukocytosis after steroid given, fluctuating Lactate 3.4>1.6>2.4>3.3>3.8>1.0 UTI? 05/01 UA 10-15 WBC 05/01 UCx: MDR Klebsiella(R-imipenem, gent, cipro, nitrofurantoin, zosyn, bactrim. I-amikacin) PNA? 05/01 sputum cx: MRSA, Providencia(S-amikacin, cefepime, ceftazidime, cipro, erta, zosyn), normal resp magdalena 05/01 CXR: Right mainstem intubation. Suggest pulling the tube back about 3 cm. Atelectasis of the left lower lobe. Superimposed pneumonia or pleural effusion is not excluded. CHF suspected. 05/01 CXR: Endotracheal tube is 2 cm above the guille in good position. A left subclavian line is also present in good position of the tip projected over the SVC. Pulmonary edema again demonstrated. There is hazy opacity at the left lung base which is probably a pleural effusion. 05/02 CXR: Over one day, interval improvement of previously demonstrated left- sided pleural fluid and interstitial and airspace edema. Parenchymal disease is unchanged on the right. 05/03 CXR: Stable satisfactory positions of endotracheal tube, left arm PICC. Hazy opacities in the right mid and lower lung are probably unchanged. There is a small amount of hazy opacity at the left lung base persisting as well. The heart is normal in size. Allowing for technical differences, findings are overall unchanged r/o bacteremia 05/01 BCx: ngtd MRSA negative VRE negative CRE negative HTN COPD Schizophrenia DM G tube Parkinson CKD Protein calorie malnutrition Dementia Psychosis Gastritis Functional paraplegia Plan: Meropenem #1/ Linezolid #1/5 05/05 DC Cefepime #1 05/04 SP Colistin #1 05/04 DC Ertapenem, Amikacin, Vancomycin #3 05/01 SP Zosyn #1 steroid per pulm f/u bcx f/u ucx f/u sputum cx aspiration precaution ETT management skin care oral care C diff if diarrhea Thank you for this consult. [facility] will continue to follow the patient with you. Subjective Allergies: Coded Allergies: No Known Allergies (Unverified , 05/01/19) Subjective Tmax 100. FiO2 30% Failed weaning. Was on levophed at 2 overnight, now off. Leukocytosis up. Objective Vital Signs Last 24 Hour Vital Signs Date Time Temp Pulse Resp B/P (MAP) Pulse Ox O2 Delivery O2 Flow Rate FiO2 05/05/19 14:00 75 17 102/45 (64) 97 05/05/19 13:00 73 16 103/73 (83) 98 05/05/19 12:46 70 17 30 05/05/19 12:00 74 05/05/19 12:00 Mechanical Ventilator 05/05/19 12:00 30 05/05/19 12:00 99.2 78 17 104/55 (71) 99 05/05/19 11:30 77 17 89/60 (70) 97 05/05/19 11:01 80 16 30 05/05/19 11:00 79 19 103/54 (70) 98 05/05/19 10:30 81 17 94/54 (67) 99 05/05/19 10:00 76 16 94/47 (63) 99 05/05/19 09:30 75 19 112/40 (64) 97 05/05/19 09:06 73 16 30 05/05/19 09:00 74 16 116/36 (62) 99 05/05/19 08:30 65 16 113/42 (65) 97 05/05/19 08:00 Mechanical Ventilator 05/05/19 08:00 99.0 65 16 118/44 (68) 100 05/05/19 08:00 30 05/05/19 08:00 60 05/05/19 07:30 66 16 117/60 (79) 100 05/05/19 07:00 68 16 110/44 (66) 88 05/05/19 07:00 108/48 05/05/19 06:55 61 16 30 05/05/19 06:30 59 16 109/42 (64) 99 05/05/19 06:00 102/49 05/05/19 06:00 97.8 70 15 102/48 (66) 92 05/05/19 05:30 65 17 110/46 (67) 99 05/05/19 05:15 63 16 30 05/05/19 05:00 108/45 05/05/19 05:00 59 16 108/42 (64) 100 05/05/19 04:30 60 16 136/47 (76) 100 05/05/19 04:00 Mechanical Ventilator 05/05/19 04:00 63 05/05/19 04:00 136/43 05/05/19 04:00 74 17 90/72 (78) 99 05/05/19 04:00 30 05/05/19 03:30 58 16 122/43 (69) 99 05/05/19 03:00 54 16 103/55 (71) 99 05/05/19 03:00 55 16 30 05/05/19 03:00 122/43 05/05/19 02:30 54 16 117/46 (69) 99 05/05/19 02:00 56 16 101/47 (65) 100 05/05/19 02:00 117/56 05/05/19 01:30 57 16 108/42 (64) 99 05/05/19 01:29 64 16 30 05/05/19 01:00 108/42 05/05/19 01:00 57 16 108/44 (65) 98 05/05/19 00:30 56 16 98/40 (59) 99 05/05/19 00:00 56 05/05/19 00:00 98/40 05/05/19 00:00 99.5 60 16 104/42 (62) 99 05/05/19 00:00 Mechanical Ventilator 05/05/19 00:00 30 05/04/19 23:30 57 16 103/41 (61) 100 05/04/19 23:10 59 16 30 05/04/19 23:00 58 16 108/42 (64) 99 05/04/19 23:00 94/51 05/04/19 22:30 56 16 98/41 (60) 99 05/04/19 22:00 103/41 05/04/19 22:00 56 16 101/39 (59) 99 05/04/19 21:30 57 16 91/37 (55) 98 05/04/19 21:00 58 16 95/39 (57) 97 05/04/19 21:00 91/37 05/04/19 20:49 58 16 30 05/04/19 20:30 58 16 94/38 (56) 98 05/04/19 20:00 94/45 05/04/19 20:00 99.5 60 16 96/45 (62) 98 05/04/19 20:00 30 05/04/19 20:00 Mechanical Ventilator 05/04/19 20:00 59 05/04/19 19:30 62 16 100/40 (60) 99 05/04/19 19:29 61 16 30 05/04/19 19:00 62 16 128/42 (70) 98 05/04/19 19:00 91/39 05/04/19 18:30 88/49 05/04/19 18:15 85/39 05/04/19 18:00 65 16 88/36 (53) 99 05/04/19 17:04 69 16 30 05/04/19 17:00 66 16 89/39 (56) 98 05/04/19 16:00 30 05/04/19 16:00 65 05/04/19 16:00 Mechanical Ventilator 05/04/19 16:00 100.0 69 16 98/48 (65) 99 05/04/19 15:19 68 16 30 05/04/19 15:00 70 16 111/48 (69) 100 Height (Feet): 5 Height (Inches): 7.00 Weight (Pounds): 124 Objective VS: Tmax 104.2 Gen: NAD. twitching HEENT: ETT CV: RRR Resp: RRR. coarse. no wheezes Abd: soft. nondistended. normoactive Bs+ Neuro: not awake Laboratory Tests Test 05/05/19 04:40 05/05/19 05:21 White Blood Count 12.3 K/UL (4.8-10.8) H Red Blood Count 3.32 M/UL (4.20-5.40) L Hemoglobin 9.8 G/DL (12.0-16.0) L Hematocrit 29.3 % (37.0-47.0) L Mean Corpuscular Volume 88 FL (80-99) Mean Corpuscular Hemoglobin 29.6 PG (27.0-31.0) Mean Corpuscular Hemoglobin Concent 33.5 G/DL (32.0-36.0) Red Cell Distribution Width 16.1 % (11.6-14.8) H Platelet Count 116 K/UL (150-450) L Mean Platelet Volume 8.3 FL (6.5-10.1) Neutrophils (%) (Auto) 84.1 % (45.0-75.0) H Lymphocytes (%) (Auto) 10.0 % (20.0-45.0) L Monocytes (%) (Auto) 4.0 % (1.0-10.0) Eosinophils (%) (Auto) 1.5 % (0.0-3.0) Basophils (%) (Auto) 0.4 % (0.0-2.0) Sodium Level 139 MMOL/L (136-145) Potassium Level 4.2 MMOL/L (3.5-5.1) Chloride Level 110 MMOL/L (98-107) H Carbon Dioxide Level 20 MMOL/L (21-32) L Anion Gap 9 mmol/L (5-15) Blood Urea Nitrogen 28 mg/dL (7-18) H Creatinine 1.0 MG/DL (0.55-1.30) Estimat Glomerular Filtration Rate mL/min (>60) Glucose Level 154 MG/DL (74-106) H Uric Acid 5.5 MG/DL (2.6-7.2) Calcium Level 9.9 MG/DL (8.5-10.1) Phosphorus Level 2.3 MG/DL (2.5-4.9) L Magnesium Level 1.8 MG/DL (1.8-2.4) Total Bilirubin 0.9 MG/DL (0.2-1.0) Aspartate Amino Transf (AST/SGOT) 26 U/L (15-37) Alanine Aminotransferase (ALT/SGPT) 77 U/L (12-78) Alkaline Phosphatase 249 U/L (46-116) H Total Protein 4.5 G/DL (6.4-8.2) L Albumin 1.6 G/DL (3.4-5.0) L Globulin 2.9 g/dL Albumin/Globulin Ratio 0.6 (1.0-2.7) L Arterial Blood pH 7.472 (7.350-7.450) Arterial Blood Partial Pressure CO2 26.6 mmHg (35.0-45.0) L Arterial Blood Partial Pressure O2 82.4 mmHg (75.0-100.0) Arterial Blood HCO3 19.0 mmol/L (22.0-26.0) L Arterial Blood Oxygen Saturation 96.0 % (95-100) Arterial Blood Base Excess -3.5 (-2-2) L Silas Test Positive Current Medications Medications (Trade) Dose Ordered Sig/Vane Route PRN Reason Start Time Stop Time Status Last Admin Dose Admin Acetaminophen (Tylenol) 650 mg Q4H PRN NG fever 05/04/19 09:30 05/31/19 12:44 05/04/19 10:00 Albuterol/ Ipratropium (Albuterol/ Ipratropium) 3 ml Q4H PRN HHN Shortness of Breath 05/01/19 12:45 05/06/19 12:44 Calcitonin [place] (Miacalcin) 1 sprays DAILY NASAL 05/04/19 09:00 06/03/19 08:59 05/05/19 08:50 Cefepime HCl 2 gm/ Dextrose 55 ml @ 110 mls/hr Q24H IVPB 05/04/19 21:00 05/11/19 20:59 05/04/19 20:28 Chlorhexidine Gluconate (Shanice-Hex 2%) 1 applic DAILY@2000 TOPIC 05/01/19 20:00 05/31/19 19:59 05/04/19 20:26 Colistimethate Sodium (Colistin) 75 mg EVERY 12 HOURS IVP 05/04/19 21:00 05/11/19 20:59 05/05/19 08:50 Dextrose (Dextrose 50%) 25 ml Q30M PRN IV Hypoglycemia 05/02/19 06:30 06/01/19 06:29 Dextrose (Dextrose 50%) 50 ml Q30M PRN IV Hypoglycemia 05/02/19 06:30 06/01/19 06:29 Erythromycin (Joey-Ped) 250 mg Q8HR GT 05/05/19 14:00 05/12/19 13:59 05/05/19 14:16 Heparin Sodium (Porcine) (Heparin 5000 units/ml) 5,000 units EVERY 12 HOURS SUBQ 05/01/19 21:00 05/31/19 20:59 05/05/19 08:57 Insulin Aspart (NovoLOG) EVERY 6 HOURS SUBQ 05/02/19 07:30 06/01/19 07:29 05/05/19 12:49 Linezolid (Zyvox) 600 mg EVERY 12 HOURS ORAL 05/04/19 21:00 05/09/19 20:59 05/05/19 08:51 Lorazepam (Ativan 2mg/ml 1ml) 2 mg Q2H PRN IV For Anxiety 05/01/19 12:45 05/08/19 12:44 05/02/19 11:48 Lorazepam (Ativan) 0.5 mg Q6H PRN NG For Anxiety 05/04/19 09:30 05/09/19 07:29 Midodrine (Pro-Amatine) 2.5 mg THREE TIMES A DAY NG 05/05/19 13:00 06/04/19 12:59 05/05/19 12:51 Morphine Sulfate (Morphine Sulfate) 4 mg Q4H PRN IVP Severe Pain (Pain Scale 7-10) 05/01/19 12:45 05/08/19 12:44 05/04/19 12:54 Norepinephrine Bitartrate 4 mg/ Dextrose 254 ml @ 0 mls/hr Q24H IV 05/01/19 12:45 05/31/19 12:44 05/04/19 18:15 Ondansetron HCl (Zofran) 4 mg Q6H PRN IVP Nausea & Vomiting 05/01/19 12:45 05/31/19 12:44 Pantoprazole (Protonix) 40 mg Q12HR IV 05/01/19 21:00 06/01/19 08:59 05/05/19 08:49 Potassium Chloride (K-Dur) 20 meq TWICE A DAY NG 05/04/19 09:18 06/03/19 09:17 05/05/19 08:50 Risperidone (RisperDAL) 0.25 mg QHS PRN GT Agitation 05/02/19 07:30 06/01/19 07:29 Sodium Chloride 1,000 ml @ 75 mls/hr [id number] IV 05/02/19 10:39 06/01/19 10:38 05/05/19 05:56 Sodium Phosphate 30 mm/Sodium Chloride 285 ml @ 47.5 mls/hr ONCE ONCE IVPB 05/05/19 12:00 05/05/19 17:59 05/05/19 12:51 Jennifer Palm MD May 05, 2019 14:41
--- NOTE | 2019-05-05 15:55 | NUR ---
CASE MANAGEMENT: REVIEW SI: RESP FAILURE . SEPTIC SHOCK T 99.2 HR 74 RR 17 BP 101/44 SAT 99% MECH VENT FIO2 30 WBC 12.3 H/H 9.8/29.3 IS: MEROPENEM IV Q8HR ERYTHROMYCIN GT Q8HR MIDODRINE GT TID NaPO4 NS IVF @ 47.5 ZYVOX GT Q12 LEVOPHED GTT GT FEEDING ICU STATUS DCP: PATIENT IS FROM [facility]
--- NOTE | 2019-05-05 16:00 | Progress Note ---
DATE: 05/05/2019 SUBJECTIVE: This is a 78-year-old female patient. This patient is admitted to the hospital. She ICU. She is confused, disorganized. She has got poor cognition. She has septic shock, pulmonary congestion, hypertension, and pneumonia but she also has overlying diagnosis of paranoid schizophrenia. That is why, her attending physician has requested daily psychiatric consultation. MENTAL STATUS EXAMINATION: This is a 78-year-old female. Appearance is disheveled. Attitude, irritable, and agitated. Affect, guarded and restricted. Intellect poor. Mood, depressed and anxious. Motor activity, psychomotor agitation. Insight and judgment is poor. DIAGNOSIS: Major depressive disorder, severe, recurrent with psychotic features, rule out dementia with psychosis. PLAN: Plan for this patient is to treat her with a medication regimen consisting of Risperdal 0.25 mg per G-tube at bedtime p.r.n. anxiety and agitation, Ativan 0.5 mg every 6 hours p.r.n. anxiety and agitation. Also, 20 minutes of behavioral management provided. Chart reviewed. Discussed with staff. Seen and assessed at bedside. Kristen Rodgers M.D. DR: SOUMYA JOB#: [id number] CC:
--- NOTE | 2019-05-05 16:45 | NUR ---
NURSE NOTES: Pt turned and repositioned. Pt had 1 moderate sized pasty BM. VSS. Will continue to monitor.
--- NOTE | 2019-05-05 19:19 | NUR ---
HAND-OFF: Report given to Angie DUNN.
--- NOTE | 2019-05-05 19:20 | NUR ---
NURSE NOTES: Endorsement received from Rafia Flores RN. Patient opens eyes to light shaking. Withdraws to pain. Orally intubated with ET 7.5, 22 lipline. AC 16, 500, PEEP 5, 30% FiO2. GT patent and intact. On Glucerna 1.2 30ml/hr with goal of 50 ml/hr. No residual, increased to 40ml/hr. Left upper arm PICC, flushing well. On / NS 75ml/hr. Hilario catheter in place, draining to urimeter. Head of bed elevated. Bed alarm on. Call light within reach. Bed locked and in low position. On P200 mattress.
--- NOTE | 2019-05-05 19:40 | Cardiology Progress Note ---
Assessment/Plan Assessment/Plan 1. Acute febrile illness, sepsis. 2. Hypotension. 3. Possible pneumonia/ respiratory failure acute 4. Urinary tract infection? 5. Hypernatremia. 6. Renal insufficiency and failure. 7. Dementia. 8. G-tube placement. 9. anemia 10. thrombocytopenia 11. lactic acidosis 12. hyperglycemia improved pulm secretion per staff iv abx vent support plt imporved abn trop noted cxr personally reviewed looks ok d/w rn pulm toilette echo lv fxn normal ns bolus 250cc lat nite now off pressor Subjective ROS Limited/Unobtainable: Yes Objective Last 24 Hour Vital Signs Date Time Temp Pulse Resp B/P (MAP) Pulse Ox O2 Delivery O2 Flow Rate FiO2 05/05/19 19:16 78 23 30 05/05/19 19:00 73 16 104/44 (64) 99 05/05/19 18:00 71 16 91/41 (58) 98 05/05/19 17:14 78 17 30 05/05/19 17:00 80 16 106/35 (58) 96 05/05/19 16:00 99.0 75 15 120/41 (67) 96 05/05/19 16:00 Mechanical Ventilator 05/05/19 16:00 30 05/05/19 16:00 75 05/05/19 15:00 77 17 101/44 (63) 97 05/05/19 14:51 74 16 30 05/05/19 14:00 75 17 102/45 (64) 97 05/05/19 13:00 73 16 103/73 (83) 98 05/05/19 12:46 70 17 30 05/05/19 12:00 74 05/05/19 12:00 Mechanical Ventilator 05/05/19 12:00 30 05/05/19 12:00 99.2 78 17 104/55 (71) 99 05/05/19 11:30 77 17 89/60 (70) 97 05/05/19 11:01 80 16 30 05/05/19 11:00 79 19 103/54 (70) 98 05/05/19 10:30 81 17 94/54 (67) 99 05/05/19 10:00 76 16 94/47 (63) 99 05/05/19 09:30 75 19 112/40 (64) 97 05/05/19 09:06 73 16 30 05/05/19 09:00 74 16 116/36 (62) 99 05/05/19 08:30 65 16 113/42 (65) 97 05/05/19 08:00 Mechanical Ventilator 05/05/19 08:00 99.0 65 16 118/44 (68) 100 05/05/19 08:00 30 05/05/19 08:00 60 05/05/19 07:30 66 16 117/60 (79) 100 05/05/19 07:00 68 16 110/44 (66) 88 05/05/19 07:00 108/48 05/05/19 06:55 61 16 30 05/05/19 06:30 59 16 109/42 (64) 99 05/05/19 06:00 102/49 05/05/19 06:00 97.8 70 15 102/48 (66) 92 05/05/19 05:30 65 17 110/46 (67) 99 05/05/19 05:15 63 16 30 05/05/19 05:00 108/45 05/05/19 05:00 59 16 108/42 (64) 100 05/05/19 04:30 60 16 136/47 (76) 100 05/05/19 04:00 Mechanical Ventilator 05/05/19 04:00 63 05/05/19 04:00 136/43 05/05/19 04:00 74 17 90/72 (78) 99 05/05/19 04:00 30 05/05/19 03:30 58 16 122/43 (69) 99 05/05/19 03:00 54 16 103/55 (71) 99 05/05/19 03:00 55 16 30 05/05/19 03:00 122/43 05/05/19 02:30 54 16 117/46 (69) 99 05/05/19 02:00 56 16 101/47 (65) 100 05/05/19 02:00 117/56 05/05/19 01:30 57 16 108/42 (64) 99 05/05/19 01:29 64 16 30 05/05/19 01:00 108/42 05/05/19 01:00 57 16 108/44 (65) 98 05/05/19 00:30 56 16 98/40 (59) 99 05/05/19 00:00 56 05/05/19 00:00 98/40 05/05/19 00:00 99.5 60 16 104/42 (62) 99 05/05/19 00:00 Mechanical Ventilator 05/05/19 00:00 30 05/04/19 23:30 57 16 103/41 (61) 100 05/04/19 23:10 59 16 30 05/04/19 23:00 58 16 108/42 (64) 99 05/04/19 23:00 94/51 05/04/19 22:30 56 16 98/41 (60) 99 05/04/19 22:00 103/41 05/04/19 22:00 56 16 101/39 (59) 99 05/04/19 21:30 57 16 91/37 (55) 98 05/04/19 21:00 58 16 95/39 (57) 97 05/04/19 21:00 91/37 05/04/19 20:49 58 16 30 05/04/19 20:30 58 16 94/38 (56) 98 05/04/19 20:00 94/45 05/04/19 20:00 99.5 60 16 96/45 (62) 98 05/04/19 20:00 30 05/04/19 20:00 Mechanical Ventilator 05/04/19 20:00 59 General Appearance: no apparent distress, patient on isolation, isolation precautions Cardiovascular: normal rate Respiratory/Chest: lungs clear - ant Abdomen: normal bowel sounds, non tender, soft Extremities: no swelling Intake and Output 05/04/19 05/05/19 19:00 07:00 Intake Total 1851.906 ml 1266.58 ml Output Total 435 ml 685 ml Balance 1416.906 ml 581.58 ml IV Total 1656.906 ml 1206.58 ml Tube Feeding 195 ml 60 ml Output Urine Total 435 ml 685 ml # Bowel Movements 3 4 Laboratory Tests Test 05/05/19 04:40 05/05/19 05:21 White Blood Count 12.3 K/UL (4.8-10.8) H Red Blood Count 3.32 M/UL (4.20-5.40) L Hemoglobin 9.8 G/DL (12.0-16.0) L Hematocrit 29.3 % (37.0-47.0) L Mean Corpuscular Volume 88 FL (80-99) Mean Corpuscular Hemoglobin 29.6 PG (27.0-31.0) Mean Corpuscular Hemoglobin Concent 33.5 G/DL (32.0-36.0) Red Cell Distribution Width 16.1 % (11.6-14.8) H Platelet Count 116 K/UL (150-450) L Mean Platelet Volume 8.3 FL (6.5-10.1) Neutrophils (%) (Auto) 84.1 % (45.0-75.0) H Lymphocytes (%) (Auto) 10.0 % (20.0-45.0) L Monocytes (%) (Auto) 4.0 % (1.0-10.0) Eosinophils (%) (Auto) 1.5 % (0.0-3.0) Basophils (%) (Auto) 0.4 % (0.0-2.0) Sodium Level 139 MMOL/L (136-145) Potassium Level 4.2 MMOL/L (3.5-5.1) Chloride Level 110 MMOL/L (98-107) H Carbon Dioxide Level 20 MMOL/L (21-32) L Anion Gap 9 mmol/L (5-15) Blood Urea Nitrogen 28 mg/dL (7-18) H Creatinine 1.0 MG/DL (0.55-1.30) Estimat Glomerular Filtration Rate mL/min (>60) Glucose Level 154 MG/DL (74-106) H Uric Acid 5.5 MG/DL (2.6-7.2) Calcium Level 9.9 MG/DL (8.5-10.1) Phosphorus Level 2.3 MG/DL (2.5-4.9) L Magnesium Level 1.8 MG/DL (1.8-2.4) Total Bilirubin 0.9 MG/DL (0.2-1.0) Aspartate Amino Transf (AST/SGOT) 26 U/L (15-37) Alanine Aminotransferase (ALT/SGPT) 77 U/L (12-78) Alkaline Phosphatase 249 U/L (46-116) H Total Protein 4.5 G/DL (6.4-8.2) L Albumin 1.6 G/DL (3.4-5.0) L Globulin 2.9 g/dL Albumin/Globulin Ratio 0.6 (1.0-2.7) L Arterial Blood pH 7.472 (7.350-7.450) Arterial Blood Partial Pressure CO2 26.6 mmHg (35.0-45.0) L Arterial Blood Partial Pressure O2 82.4 mmHg (75.0-100.0) Arterial Blood HCO3 19.0 mmol/L (22.0-26.0) L Arterial Blood Oxygen Saturation 96.0 % (95-100) Arterial Blood Base Excess -3.5 (-2-2) L Silas Test Positive Objective Current Medications Medications (Trade) Dose Ordered Sig/Vane Route PRN Reason Start Time Stop Time Status Last Admin Dose Admin Acetaminophen (Tylenol) 650 mg Q4H PRN ORAL fever 05/01/19 12:45 05/31/19 12:44 Albuterol/ Ipratropium (Albuterol/ Ipratropium) 3 ml Q4H PRN HHN Shortness of Breath 05/01/19 12:45 05/06/19 12:44 Amikacin Protocol (Amikacin pharmacy to dose) 1 ea DAILY PRN MISC . 05/01/19 12:45 05/31/19 12:44 Amikacin Sulfate 500 mg/Sodium Chloride 112 ml @ 112 mls/hr Q24H IV 05/01/19 18:00 05/08/19 17:59 05/01/19 18:04 Chlorhexidine Gluconate (Shanice-Hex 2%) 1 applic DAILY@2000 TOPIC 05/01/19 20:00 05/31/19 19:59 05/01/19 19:48 Dextrose (Dextrose 50%) 25 ml Q30M PRN IV Hypoglycemia 05/02/19 06:30 06/01/19 06:29 Dextrose (Dextrose 50%) 50 ml Q30M PRN IV Hypoglycemia 05/02/19 06:30 06/01/19 06:29 Ertapenem 0.5 gm/ Sodium Chloride 55 ml @ 110 mls/hr Q24H IV 05/01/19 21:00 05/06/19 20:59 05/01/19 21:15 Heparin Sodium (Porcine) (Heparin 5000 units/ml) 5,000 units EVERY 12 HOURS SUBQ 05/01/19 21:00 05/31/19 20:59 05/01/19 21:17 Insulin Aspart (NovoLOG) EVERY 6 HOURS SUBQ 05/02/19 07:30 06/01/19 07:29 05/02/19 08:42 Lorazepam (Ativan 2mg/ml 1ml) 2 mg Q2H PRN IV For Anxiety 05/01/19 12:45 05/08/19 12:44 05/02/19 11:48 Lorazepam (Ativan) 0.5 mg Q6H PRN ORAL For Anxiety 05/02/19 07:30 05/09/19 07:29 Magnesium Sulfate 100 ml @ 100 mls/hr Q1H IVPB 05/02/19 10:00 05/02/19 13:59 05/02/19 11:03 Morphine Sulfate (Morphine Sulfate) 4 mg Q4H PRN IVP Severe Pain (Pain Scale 7-10) 05/01/19 12:45 05/08/19 12:44 Norepinephrine Bitartrate 4 mg/ Dextrose 254 ml @ 0 mls/hr Q24H IV 05/01/19 12:45 05/31/19 12:44 05/01/19 15:45 Ondansetron HCl (Zofran) 4 mg Q6H PRN IVP Nausea & Vomiting 05/01/19 12:45 05/31/19 12:44 Pantoprazole (Protonix) 40 mg Q12HR IV 05/01/19 21:00 06/01/19 08:59 05/02/19 08:29 Potassium Phosphate 20 mm/ Sodium Chloride 281.6667 ml @ 46.944 m... ONCE ONCE IV 05/02/19 11:00 05/02/19 16:59 05/02/19 11:02 Potassium Chloride 100 ml @ 100 mls/hr Q1HR IVPB 05/02/19 10:00 05/02/19 13:59 05/02/19 11:02 Risperidone (RisperDAL) 0.25 mg QHS PRN GT Agitation 05/02/19 07:30 06/01/19 07:29 Sodium Chloride 1,000 ml @ 75 mls/hr [id number] IV 05/02/19 10:39 06/01/19 10:38 05/02/19 11:02 Vancomycin HCl (Vanco rx to dose) 1 ea DAILY PRN MISC . 05/01/19 12:45 05/31/19 12:44 Martin Sarmiento MD May 05, 2019 19:40
[2019-05-05] MEDS: Dyna-Hex 2% Top Sol 2oz TOPIC SCH (19:50)
--- NOTE | 2019-05-05 21:00 | NUR ---
NURSE NOTES: Heparin SQ not given due to low platelet.
[2019-05-05] MEDS: Meropenem 1 GM in NS 55 ML IVPB SCH (22:16)
[2019-05-05] MEDS ORDERED: D5 1/2NS 1000ml IV ONE (22:47)
[2019-05-05] MEDS ORDERED: 1/2 NS 1000ml IV ONE (22:49)
--- NOTE | 2019-05-05 23:00 | NUR ---
NURSE NOTES: Secretions suctioned, moderate amount from ETT. Patient opens eyes spontaneously, however does not track. Afebrile
[2019-05-06] VITALS (25 sets, daily range): BP systolic 67–114; BP diastolic 38–78
--- NOTE | 2019-05-06 | NUR ---
NURSE NOTES: Residual of 200ml brown, undigested feeding. Feeding held at this time. Head of bed kept elevated. Blood sugar checked and covered as per sliding scale.
[2019-05-06] MEDS: NovoLOG Insulin Flexpen SUBQ SCH ×4 (00:51→18:00)
--- NOTE | 2019-05-06 02:00 | NUR ---
NURSE NOTES: Vital signs stable. No signs of pain or discomfort. BP maintaining >90mmHg without Levophed.
--- NOTE | 2019-05-06 03:00 | NUR ---
NURSE NOTES: No residual. Restarted feeding at 15ml/hr. Will continue to monitor.
--- NOTE | 2019-05-06 05:00 | NUR ---
NURSE NOTES: Bed bath, oral care, change of linens, change of dressings done.
[2019-05-06 05:13] LABS: BASOPHILS % (AUTO) 0.3 % (0.0-2.0); EOSINOPHILS % (AUTO) 1.9 % (0.0-3.0); HEMATOCRIT 27.6 % (37.0-47.0); LYMPHOCYTES % (AUTO) 13.7 % (20.0-45.0); MEAN CORPUSCULAR VOLUME 88 FL (80-99); MONOCYTES % (AUTO) 4.9 % (1.0-10.0); NEUTROPHILS % (AUTO) 79.2 % (45.0-75.0); PLATELET COUNT 120 K/UL (150-450); RED BLOOD COUNT 3.13 M/UL (4.20-5.40); RED CELL DISTRIBUTION WIDTH 15.6 % (11.6-14.8); WHITE BLOOD COUNT 8.3 K/UL (4.8-10.8)
[2019-05-06 05:28] LABS: ALANINE AMINOTRANSFERASE 64 U/L (12-78); ALBUMIN 1.5 G/DL (3.4-5.0); ALBUMIN/GLOBULIN RATIO 0.5 (1.0-2.7); ALKALINE PHOSPHATASE 278 U/L (46-116); ANION GAP 8 mmol/L (5-15); ASPARTATE AMINO TRANSFERASE 23 U/L (15-37); BILIRUBIN,TOTAL 0.7 MG/DL (0.2-1.0); BLOOD UREA NITROGEN 31 mg/dL (7-18); CALCIUM 8.9 MG/DL (8.5-10.1); CARBON DIOXIDE 23 MMOL/L (21-32); CHLORIDE 111 MMOL/L (98-107); CREATININE 1.1 MG/DL (0.55-1.30); PHOSPHORUS 3.3 MG/DL (2.5-4.9); POTASSIUM 3.8 MMOL/L (3.5-5.1); SODIUM 142 MMOL/L (136-145)
[2019-05-06] MEDS: Erythromycin Ethylsuccinate 200mg/5ml Susp GT SCH ×3 (05:37→21:50)
[2019-05-06] MEDS: Meropenem 1 GM in NS 55 ML IVPB SCH ×3 (05:37→21:50)
--- NOTE | 2019-05-06 07:00 | NUR ---
RESPIRATORY NOTES: Received Patient on Vent settings ACVC RR 16, VT 500, Fio2 30% PEEP +5. Patient has a 7.5 ETT at 22 cm at the lip, secured with anchorfast. Suctioned a small amount of clear, yellow, thin secretions. Patient lying in bed sleeping. Vent plugged into red outlet. Alarms are on and audible. Will continue to monitor patient throughout the day.
--- NOTE | 2019-05-06 07:02 | NUR ---
HAND-OFF: Report given to Ro Mack RN.
--- NOTE | 2019-05-06 07:29 | NUR ---
RESPIRATORY NOTES: Patient failed weaning criteria. When placed on PS +8, patient tidal volumes dropped below 200mL, patients respiratory rate dropped below 5 breaths per minute. Overall lack of spontaneous effort. Placed back onto ACVC.
--- NOTE | 2019-05-06 07:30 | NUR ---
NURSE NOTES: LATE ENTRY: RECEIVED REPORT FROM Emiliano PRADHAN PT LETHARGIC, RESPONSIVE TO LIGHT PAIN. PUPILS 3MM, SLUGGISH, GAG PRESENT. VS:99.4 AX TEMP. HR 68, RR16, BP 96/40, 02SAT 100%. NO JVD, HOT TO TOUCH. BILATERAL RADIAL AND PEDAL PULSES WEAK. RT HAND WEEPING EDEMA NOTED, WRAPPED IN ABSORBANT PAD. ETTUBE 7.5, 22cm@LIP. VENT SETTINGS: AC16, VT 500, PEEP5, FI02 30%. NSR. S1,S2 PRESENT. LUNG SOUNDS DIMINISHED BILATERAL. ETTUBE SECRETIONS SANTIAGO, THICK. ABDOMEN ROUND, SOFT. BOWEL SOUNDS HYPOACTIVE. LARGE STOOL DIARRHEA, LIGHT BROWN. GT PATENT, TUBE FEEDING GLUCERNA 1.2, RUNNING AT 15ML/HR, 80ML RESIDUAL. WILL INCREASE TOLERATED. SKIN- SEE ASSESSMENT, PALE MILDLY DIAPHORETIC. ON P200 MATTRESS. CONTACT PRECAUTIONS IN PLACE. BED ALARM ON, LOCKED AND IN LOWEST POSITION. ZONE 2, SIDE RAILS UP X2. EDUCATION PROVIDED ON PREVENTING VAP. WILL CONTINUE TO IMPLEMENT PLAN OF CARE.
[2019-05-06] MEDS: Pantoprazole Inj IV SCH ×2 (08:13→20:46)
[2019-05-06] MEDS: Heparin 5000 units/ml inj SUBQ SCH ×2 (08:27→20:46)
--- NOTE | 2019-05-06 08:47 | General Progress Note ---
Assessment/Plan Problem List: (1) Acute respiratory failure ICD Codes: J96.00 - Acute respiratory failure, unspecified whether with hypoxia or hypercapnia SNOMED: 55177181 (2) Septic shock ICD Codes: A41.9 - Sepsis, unspecified organism; R65.21 - Severe sepsis with septic shock SNOMED: 25480263, 9162136 (3) Diabetes mellitus ICD Codes: E11.9 - Type 2 diabetes mellitus without complications SNOMED: 88562150 (4) Hypertension ICD Codes: I10 - Essential (primary) hypertension SNOMED: 80850913 (5) COPD (chronic obstructive pulmonary disease) ICD Codes: J44.9 - Chronic obstructive pulmonary disease, unspecified SNOMED: 13347905 (6) Anemia ICD Codes: D64.9 - Anemia, unspecified SNOMED: 229485149 (7) Schizophrenia ICD Codes: F20.9 - Schizophrenia, unspecified SNOMED: 73140655 Status: unchanged Assessment/Plan: vent abx bp bs control cbc bmp am Subjective Constitutional: Reports: weakness Allergies: Coded Allergies: No Known Allergies (Unverified , 05/01/19) All Systems: reviewed and negative except above Subjective intubated sedated in icu Objective Last 24 Hour Vital Signs Date Time Temp Pulse Resp B/P (MAP) Pulse Ox O2 Delivery O2 Flow Rate FiO2 05/06/19 07:26 68 20 30 05/06/19 07:00 70 16 98/40 (59) 99 05/06/19 06:00 68 16 103/42 (62) 99 05/06/19 05:43 66 17 30 05/06/19 05:00 66 16 100/47 (64) 100 05/06/19 04:00 Mechanical Ventilator 05/06/19 04:00 98.9 67 16 96/44 (61) 98 05/06/19 04:00 30 05/06/19 04:00 77 05/06/19 03:41 69 18 30 05/06/19 03:00 69 16 96/42 (60) 99 05/06/19 02:00 68 16 92/57 (69) 99 05/06/19 01:17 69 16 30 05/06/19 01:00 67 16 97/41 (59) 98 05/06/19 00:00 Mechanical Ventilator 05/06/19 00:00 98.2 72 18 99/40 (59) 98 05/06/19 00:00 69 05/05/19 23:29 66 16 30 05/05/19 23:00 76 16 103/42 (62) 98 05/05/19 22:00 75 16 105/45 (65) 97 05/05/19 21:45 72 16 30 05/05/19 21:00 71 16 95/57 (70) 98 05/05/19 20:00 30 05/05/19 20:00 98.8 69 16 95/50 (65) 99 05/05/19 20:00 67 05/05/19 20:00 Mechanical Ventilator 05/05/19 19:16 78 23 30 05/05/19 19:00 73 16 104/44 (64) 99 05/05/19 18:00 71 16 91/41 (58) 98 05/05/19 17:14 78 17 30 05/05/19 17:00 80 16 106/35 (58) 96 05/05/19 16:00 99.0 75 15 120/41 (67) 96 05/05/19 16:00 Mechanical Ventilator 05/05/19 16:00 30 05/05/19 16:00 75 05/05/19 15:00 77 17 101/44 (63) 97 05/05/19 14:51 74 16 30 05/05/19 14:00 75 17 102/45 (64) 97 05/05/19 13:00 73 16 103/73 (83) 98 05/05/19 12:46 70 17 30 05/05/19 12:00 74 05/05/19 12:00 Mechanical Ventilator 05/05/19 12:00 30 05/05/19 12:00 99.2 78 17 104/55 (71) 99 05/05/19 11:30 77 17 89/60 (70) 97 05/05/19 11:01 80 16 30 05/05/19 11:00 79 19 103/54 (70) 98 05/05/19 10:30 81 17 94/54 (67) 99 05/05/19 10:00 76 16 94/47 (63) 99 05/05/19 09:30 75 19 112/40 (64) 97 05/05/19 09:06 73 16 30 05/05/19 09:00 74 16 116/36 (62) 99 Intake and Output 11/8/19 11/9/19 19:00 07:00 Intake Total 1091.43 ml 1245 ml Output Total 600 ml 1470 ml Balance 491.43 ml -225 ml Free Water 30 ml IV Total 911.43 ml 880 ml Tube Feeding 180 ml 235 ml Other 100 ml Output Urine Total 600 ml 1470 ml # Bowel Movements 4 1 Laboratory Tests 05/06/19 04:30: White Blood Count 8.3, Red Blood Count 3.13L, Hemoglobin 9.0L, Hematocrit 27.6L , Mean Corpuscular Volume 88, Mean Corpuscular Hemoglobin 28.9, Mean Corpuscular Hemoglobin Concent 32.8, Red Cell Distribution Width 15.6H, Platelet Count 120L, Mean Platelet Volume 8.4, Neutrophils (%) (Auto) 79.2H, Lymphocytes (%) (Auto) 13.7L, Monocytes (%) (Auto) 4.9, Eosinophils (%) (Auto) 1.9, Basophils (%) (Auto) 0.3, Sodium Level 142, Potassium Level 3.8, Chloride Level 111H, Carbon Dioxide Level 23, Anion Gap 8, Blood Urea Nitrogen 31H, Creatinine 1.1, Estimat Glomerular Filtration Rate , Glucose Level 116H, Uric Acid 5.7, Calcium Level 8.9, Phosphorus Level 3.3, Magnesium Level 1.5L, Total Bilirubin 0.7, Aspartate Amino Transf (AST/SGOT) 23, Alanine Aminotransferase ( ALT/SGPT) 64, Alkaline Phosphatase 278H, C-Reactive Protein, Quantitative 11.9H , Pro-B-Type Natriuretic Peptide 1124H, Total Protein 4.3L, Albumin 1.5L, Globulin 2.8, Albumin/Globulin Ratio 0.5L Height (Feet): 5 Height (Inches): 7.00 Weight (Pounds): 115 General Appearance: lethargic EENT: normal ENT inspection Neck: normal alignment Cardiovascular: normal peripheral pulses, normal rate, regular rhythm Respiratory/Chest: chest wall non-tender, lungs clear, normal breath sounds Abdomen: normal bowel sounds, non tender, soft Extremities: normal inspection Edema: no edema noted Arm (L), no edema noted Arm (R), no edema noted Leg (L), no edema noted Leg (R), no edema noted Pedal (L), no edema noted Pedal (R), no edema noted Generalized Neurologic: motor weakness Skin: normal pigmentation, warm/dry Cosme Chong DO May 06, 2019 08:47
--- NOTE | 2019-05-06 08:57 | General Progress Note ---
Assessment/Plan Status: unchanged Assessment/Plan: Assessment/Plan Problems: (1) Septic shock ICD Codes: A41.9 - Sepsis, unspecified organism; R65.21 - Severe sepsis with septic shock SNOMED: 66158761, 2682335 (2) Feeding by G-tube ICD Codes: Z93.1 - Gastrostomy status SNOMED: 282132133, 942532022, 918568016 (3) Diabetes mellitus ICD Codes: E11.9 - Type 2 diabetes mellitus without complications SNOMED: 03140240 (4) Anemia ICD Codes: D64.9 - Anemia, unspecified SNOMED: 368822790 Status: unchanged Status Narrative Assessment/Plan No plans for any GI procedures at this given time given the patient's elevated troponin level and hemodynamic instability. occult blood stool to evaluate for any GI bleed, negative Monitor H&H, PRN transfusions PPI GTFs Electrolyte correction, increase free water flushes for hypernatremia GT site care daily and as needed We will follow on a daily basis with additional recommendation add erythromycin for elevated residuals Subjective ROS Limited/Unobtainable: No Allergies: Coded Allergies: No Known Allergies (Unverified , 05/01/19) Objective Last 24 Hour Vital Signs Date Time Temp Pulse Resp B/P (MAP) Pulse Ox O2 Delivery O2 Flow Rate FiO2 05/06/19 08:51 65 17 100 Mechanical Ventilator 50.0 30 05/06/19 08:51 66 16 30 05/06/19 08:00 99.4 66 16 96/42 (60) 100 05/06/19 07:26 68 20 30 05/06/19 07:00 70 16 98/40 (59) 99 05/06/19 06:00 68 16 103/42 (62) 99 05/06/19 05:43 66 17 30 05/06/19 05:00 66 16 100/47 (64) 100 05/06/19 04:00 Mechanical Ventilator 05/06/19 04:00 98.9 67 16 96/44 (61) 98 05/06/19 04:00 30 05/06/19 04:00 77 05/06/19 03:41 69 18 30 05/06/19 03:00 69 16 96/42 (60) 99 05/06/19 02:00 68 16 92/57 (69) 99 11/9/19 01:17 69 16 30 05/06/19 01:00 67 16 97/41 (59) 98 05/06/19 00:00 Mechanical Ventilator 05/06/19 00:00 98.2 72 18 99/40 (59) 98 05/06/19 00:00 69 05/05/19 23:29 66 16 30 05/05/19 23:00 76 16 103/42 (62) 98 05/05/19 22:00 75 16 105/45 (65) 97 05/05/19 21:45 72 16 30 05/05/19 21:00 71 16 95/57 (70) 98 05/05/19 20:00 30 05/05/19 20:00 98.8 69 16 95/50 (65) 99 05/05/19 20:00 67 05/05/19 20:00 Mechanical Ventilator 05/05/19 19:16 78 23 30 05/05/19 19:00 73 16 104/44 (64) 99 05/05/19 18:00 71 16 91/41 (58) 98 05/05/19 17:14 78 17 30 05/05/19 17:00 80 16 106/35 (58) 96 05/05/19 16:00 99.0 75 15 120/41 (67) 96 05/05/19 16:00 Mechanical Ventilator 05/05/19 16:00 30 05/05/19 16:00 75 05/05/19 15:00 77 17 101/44 (63) 97 05/05/19 14:51 74 16 30 05/05/19 14:00 75 17 102/45 (64) 97 05/05/19 13:00 73 16 103/73 (83) 98 05/05/19 12:46 70 17 30 05/05/19 12:00 74 05/05/19 12:00 Mechanical Ventilator 05/05/19 12:00 30 05/05/19 12:00 99.2 78 17 104/55 (71) 99 05/05/19 11:30 77 17 89/60 (70) 97 05/05/19 11:01 80 16 30 05/05/19 11:00 79 19 103/54 (70) 98 05/05/19 10:30 81 17 94/54 (67) 99 05/05/19 10:00 76 16 94/47 (63) 99 05/05/19 09:30 75 19 112/40 (64) 97 05/05/19 09:06 73 16 30 05/05/19 09:00 74 16 116/36 (62) 99 Intake and Output 05/05/19 05/06/19 19:00 07:00 Intake Total 1091.43 ml 1245 ml Output Total 600 ml 1470 ml Balance 491.43 ml -225 ml Free Water 30 ml IV Total 911.43 ml 880 ml Tube Feeding 180 ml 235 ml Other 100 ml Output Urine Total 600 ml 1470 ml # Bowel Movements 4 1 Laboratory Tests 05/06/19 04:30: White Blood Count 8.3, Red Blood Count 3.13L, Hemoglobin 9.0L, Hematocrit 27.6L , Mean Corpuscular Volume 88, Mean Corpuscular Hemoglobin 28.9, Mean Corpuscular Hemoglobin Concent 32.8, Red Cell Distribution Width 15.6H, Platelet Count 120L, Mean Platelet Volume 8.4, Neutrophils (%) (Auto) 79.2H, Lymphocytes (%) (Auto) 13.7L, Monocytes (%) (Auto) 4.9, Eosinophils (%) (Auto) 1.9, Basophils (%) (Auto) 0.3, Sodium Level 142, Potassium Level 3.8, Chloride Level 111H, Carbon Dioxide Level 23, Anion Gap 8, Blood Urea Nitrogen 31H, Creatinine 1.1, Estimat Glomerular Filtration Rate , Glucose Level 116H, Uric Acid 5.7, Calcium Level 8.9, Phosphorus Level 3.3, Magnesium Level 1.5L, Total Bilirubin 0.7, Aspartate Amino Transf (AST/SGOT) 23, Alanine Aminotransferase ( ALT/SGPT) 64, Alkaline Phosphatase 278H, C-Reactive Protein, Quantitative 11.9H , Pro-B-Type Natriuretic Peptide 1124H, Total Protein 4.3L, Albumin 1.5L, Globulin 2.8, Albumin/Globulin Ratio 0.5L Height (Feet): 5 Height (Inches): 7.00 Weight (Pounds): 115 General Appearance: lethargic EENT: normal ENT inspection Neck: supple Cardiovascular: tachycardia Respiratory/Chest: decreased breath sounds Abdomen: normal bowel sounds, non tender, soft Extremities: non-tender Alfredo Lau MD May 06, 2019 08:57
--- NOTE | 2019-05-06 09:00 | Nephrology Progress Note ---
Assessment/Plan Problem List: (1) Hypercalcemia Assessment: improving (2) Septic shock (3) Acute kidney injury (4) Acute respiratory failure (5) Dehydration (6) Anemia Assessment Acute renal failure Dehydration / HyperNatremia / HyperCalcemia Septic Shock Respiratory failure / COPD NSTEMI DM PEG Schizophrenia Anemia Plan Aredia 90 mg IV and Nasal Calcitonin correct lytes prn Lasix trial Midodrine IV fluid change to 1/2 NS K and Phos and Mag supplement as needed monitor renal parameters and Calcium urine studies anemia au avoid Nephrotoxics Subjective ROS Limited/Unobtainable: Yes Objective Objective Last 24 Hour Vital Signs Date Time Temp Pulse Resp B/P (MAP) Pulse Ox O2 Delivery O2 Flow Rate FiO2 05/06/19 08:51 65 17 100 Mechanical Ventilator 50.0 30 05/06/19 08:51 66 16 30 05/06/19 08:00 99.4 66 16 96/42 (60) 100 05/06/19 07:26 68 20 30 05/06/19 07:00 70 16 98/40 (59) 99 05/06/19 06:00 68 16 103/42 (62) 99 05/06/19 05:43 66 17 30 05/06/19 05:00 66 16 100/47 (64) 100 05/06/19 04:00 Mechanical Ventilator 05/06/19 04:00 98.9 67 16 96/44 (61) 98 05/06/19 04:00 30 05/06/19 04:00 77 05/06/19 03:41 69 18 30 05/06/19 03:00 69 16 96/42 (60) 99 05/06/19 02:00 68 16 92/57 (69) 99 05/06/19 01:17 69 16 30 05/06/19 01:00 67 16 97/41 (59) 98 05/06/19 00:00 Mechanical Ventilator 05/06/19 00:00 98.2 72 18 99/40 (59) 98 05/06/19 00:00 69 05/05/19 23:29 66 16 30 05/05/19 23:00 76 16 103/42 (62) 98 05/05/19 22:00 75 16 105/45 (65) 97 05/05/19 21:45 72 16 30 05/05/19 21:00 71 16 95/57 (70) 98 05/05/19 20:00 30 05/05/19 20:00 98.8 69 16 95/50 (65) 99 05/05/19 20:00 67 05/05/19 20:00 Mechanical Ventilator 05/05/19 19:16 78 23 30 05/05/19 19:00 73 16 104/44 (64) 99 05/05/19 18:00 71 16 91/41 (58) 98 05/05/19 17:14 78 17 30 05/05/19 17:00 80 16 106/35 (58) 96 05/05/19 16:00 99.0 75 15 120/41 (67) 96 05/05/19 16:00 Mechanical Ventilator 05/05/19 16:00 30 05/05/19 16:00 75 05/05/19 15:00 77 17 101/44 (63) 97 05/05/19 14:51 74 16 30 05/05/19 14:00 75 17 102/45 (64) 97 05/05/19 13:00 73 16 103/73 (83) 98 05/05/19 12:46 70 17 30 05/05/19 12:00 74 05/05/19 12:00 Mechanical Ventilator 05/05/19 12:00 30 05/05/19 12:00 99.2 78 17 104/55 (71) 99 05/05/19 11:30 77 17 89/60 (70) 97 05/05/19 11:01 80 16 30 05/05/19 11:00 79 19 103/54 (70) 98 05/05/19 10:30 81 17 94/54 (67) 99 05/05/19 10:00 76 16 94/47 (63) 99 05/05/19 09:30 75 19 112/40 (64) 97 05/05/19 09:06 73 16 30 05/05/19 09:00 74 16 116/36 (62) 99 Intake and Output 05/05/19 05/06/19 19:00 07:00 Intake Total 1091.43 ml 1245 ml Output Total 600 ml 1470 ml Balance 491.43 ml -225 ml Free Water 30 ml IV Total 911.43 ml 880 ml Tube Feeding 180 ml 235 ml Other 100 ml Output Urine Total 600 ml 1470 ml # Bowel Movements 4 1 Laboratory Tests 05/06/19 04:30: White Blood Count 8.3, Red Blood Count 3.13L, Hemoglobin 9.0L, Hematocrit 27.6L , Mean Corpuscular Volume 88, Mean Corpuscular Hemoglobin 28.9, Mean Corpuscular Hemoglobin Concent 32.8, Red Cell Distribution Width 15.6H, Platelet Count 120L, Mean Platelet Volume 8.4, Neutrophils (%) (Auto) 79.2H, Lymphocytes (%) (Auto) 13.7L, Monocytes (%) (Auto) 4.9, Eosinophils (%) (Auto) 1.9, Basophils (%) (Auto) 0.3, Sodium Level 142, Potassium Level 3.8, Chloride Level 111H, Carbon Dioxide Level 23, Anion Gap 8, Blood Urea Nitrogen 31H, Creatinine 1.1, Estimat Glomerular Filtration Rate , Glucose Level 116H, Uric Acid 5.7, Calcium Level 8.9, Phosphorus Level 3.3, Magnesium Level 1.5L, Total Bilirubin 0.7, Aspartate Amino Transf (AST/SGOT) 23, Alanine Aminotransferase ( ALT/SGPT) 64, Alkaline Phosphatase 278H, C-Reactive Protein, Quantitative 11.9H , Pro-B-Type Natriuretic Peptide 1124H, Total Protein 4.3L, Albumin 1.5L, Globulin 2.8, Albumin/Globulin Ratio 0.5L Height (Feet): 5 Height (Inches): 7.00 Weight (Pounds): 115 General Appearance: no apparent distress EENT: other - vented Cardiovascular: normal rate Respiratory/Chest: decreased breath sounds Abdomen: distended Fox Ho MD May 06, 2019 09:00
[2019-05-06] MEDS: LORazepam Inj 2mg/ml 1ml IV PRN (09:48)
--- NOTE | 2019-05-06 12:00 | NUR ---
NURSE NOTES: LATE ENTRY: PT FLAT EFFECT, RESPONSIVE TO LIGHT PAIN. PT MOVES ARM UP TO ETTUBE. REEDUCATE ON NEED TO NOT PULL AT TUBING. VS: HR 67, RR16, BP 67/44, RECYCLED BP 94/46, 02SAT 100%. BILATERAL RADIAL AND PEDAL PULSES WEAK. ETTUBE 7.5, 22cm@LIP. VENT SETTINGS: AC16, VT 500, PEEP5, FI02 30%. NSR. LUNG SOUNDS DIMINISHED BILATERAL. ETTUBE SECRETIONS SANTIAGO, THICK. ABDOMEN ROUND, SOFT. BOWEL SOUNDS HYPOACTIVE. NO BM AT THIS TIME. TUBE FEEDING GLUCERNA 1.2, RUNNING AT 20ML/HR, NO RESIDUAL. WILL CONTINUE TO INCREASE TOLERATED. SKIN-SEE ASSESSMENT, PALE MILDLY DIAPHORETIC. ON P200 MATTRESS. CONTACT PRECAUTIONS IN PLACE. BED ALARM ON, LOCKED AND IN LOWEST POSITION. ZONE 2, SIDE RAILS UP X2. WILL CONTINUE TO MONITOR PT CLOSELY.
--- NOTE | 2019-05-06 12:40 | NUR ---
NURSE NOTES: LATE ENTRY: MD DELONG HERE TO SEE PT. PT FAILED WEANING THIS AM. NO NEW ORDERS AT THIS TIME.
--- NOTE | 2019-05-06 12:50 | NUR ---
NURSE NOTES: LATE ENTRY: MD COX HERE TO SEE PT. NO NEW ORDERS AT THIS TIME.
--- NOTE | 2019-05-06 14:05 | NUR ---
NURSE NOTES: LATE ENTRY: MD JIMÉNEZ HERE TO SEE PT. NO NEW ORDERS AT THIS TIME.
--- NOTE | 2019-05-06 15:01 | Pulmonolgy Critical Care Note ---
Critical Care - Asmt/Plan Problems: (1) Septic shock (2) Acute respiratory failure (3) COPD (chronic obstructive pulmonary disease) (4) Hypernatremia (5) Acute kidney injury (6) Hypertension (7) Diabetes mellitus (8) Feeding by G-tube Respiratory: monitor respiratory rate, adjust FIO2, CXR Cardiac: continue to monitor HR/BP Renal: F/U I&O, keep IV fluid Infectious Disease: check cultures Gastrointestinal: continue feedings/current rate Endocrine: monitor blood sugar Hematologic: monitor H/H Neurologic: PRN Morphine Affect: PRN ativan Prophylaxis: Protonix Notes Reviewed: stonemason supervisor, cardio, renal Discussed with: nurses, consultants, transplant case managergeneral manager oracle data cloud - Objective Last 24 Hour Vital Signs Date Time Temp Pulse Resp B/P (MAP) Pulse Ox O2 Delivery O2 Flow Rate FiO2 05/06/19 14:00 57 16 94/46 (62) 97 05/06/19 13:29 74 23 30 05/06/19 13:00 64 16 99/38 (58) 100 05/06/19 12:02 67 17 107/42 (63) 100 05/06/19 12:00 99.0 68 16 67/44 (52) 99 05/06/19 12:00 65 05/06/19 12:00 Mechanical Ventilator 05/06/19 12:00 30 05/06/19 11:00 67 17 106/44 (64) 100 05/06/19 10:51 61 16 30 05/06/19 10:00 71 16 105/64 (78) 100 05/06/19 09:00 70 17 105/41 (62) 99 05/06/19 08:51 65 17 100 Mechanical Ventilator 50.0 30 05/06/19 08:51 66 16 30 05/06/19 08:00 30 05/06/19 08:00 99.4 66 16 96/42 (60) 100 05/06/19 08:00 Mechanical Ventilator 05/06/19 08:00 68 05/06/19 07:26 68 20 30 05/06/19 07:00 70 16 98/40 (59) 99 05/06/19 06:00 68 16 103/42 (62) 99 05/06/19 05:43 66 17 30 05/06/19 05:00 66 16 100/47 (64) 100 05/06/19 04:00 Mechanical Ventilator 05/06/19 04:00 98.9 67 16 96/44 (61) 98 05/06/19 04:00 30 05/06/19 04:00 77 05/06/19 03:41 69 18 30 05/06/19 03:00 69 16 96/42 (60) 99 05/06/19 02:00 68 16 92/57 (69) 99 05/06/19 01:17 69 16 30 05/06/19 01:00 67 16 97/41 (59) 98 05/06/19 00:00 Mechanical Ventilator 05/06/19 00:00 98.2 72 18 99/40 (59) 98 05/06/19 00:00 69 05/05/19 23:29 66 16 30 05/05/19 23:00 76 16 103/42 (62) 98 05/05/19 22:00 75 16 105/45 (65) 97 05/05/19 21:45 72 16 30 05/05/19 21:00 71 16 95/57 (70) 98 05/05/19 20:00 30 05/05/19 20:00 98.8 69 16 95/50 (65) 99 05/05/19 20:00 67 05/05/19 20:00 Mechanical Ventilator 05/05/19 19:16 78 23 30 05/05/19 19:00 73 16 104/44 (64) 99 05/05/19 18:00 71 16 91/41 (58) 98 05/05/19 17:14 78 17 30 05/05/19 17:00 80 16 106/35 (58) 96 05/05/19 16:00 99.0 75 15 120/41 (67) 96 05/05/19 16:00 Mechanical Ventilator 05/05/19 16:00 30 05/05/19 16:00 75 Status: awake Condition: critical HEENT: atraumatic Lungs: clear Heart: HR/BP stable Abdomen: non-tender, feeding tube Extremities: edema Accucheck: 128 Critical Care - Subjective FI02: 30 Vent Support Breath Rate: 16 Vent Support Mode: AC Vent Tidal Volume: 500 Sputum Amount: Moderate PEEP: 5.0 PIP: 23 Tube Feeding Amount: 30 I&O: Intake and Output 05/05/19 05/06/19 18:59 06:59 Intake Total 1095.24 ml 1320 ml Output Total 610 ml 1420 ml Balance 485.24 ml -100 ml Free Water 30 ml IV Total 915.24 ml 955 ml Tube Feeding 180 ml 235 ml Other 100 ml Output Urine Total 610 ml 1420 ml # Bowel Movements 4 1 ET-Tube: 7.5 ET Position: 22 Labs: Laboratory Tests Test 05/06/19 04:30 White Blood Count 8.3 K/UL (4.8-10.8) Red Blood Count 3.13 M/UL (4.20-5.40) L Hemoglobin 9.0 G/DL (12.0-16.0) L Hematocrit 27.6 % (37.0-47.0) L Mean Corpuscular Volume 88 FL (80-99) Mean Corpuscular Hemoglobin 28.9 PG (27.0-31.0) Mean Corpuscular Hemoglobin Concent 32.8 G/DL (32.0-36.0) Red Cell Distribution Width 15.6 % (11.6-14.8) H Platelet Count 120 K/UL (150-450) L Mean Platelet Volume 8.4 FL (6.5-10.1) Neutrophils (%) (Auto) 79.2 % (45.0-75.0) H Lymphocytes (%) (Auto) 13.7 % (20.0-45.0) L Monocytes (%) (Auto) 4.9 % (1.0-10.0) Eosinophils (%) (Auto) 1.9 % (0.0-3.0) Basophils (%) (Auto) 0.3 % (0.0-2.0) Sodium Level 142 MMOL/L (136-145) Potassium Level 3.8 MMOL/L (3.5-5.1) Chloride Level 111 MMOL/L (98-107) H Carbon Dioxide Level 23 MMOL/L (21-32) Anion Gap 8 mmol/L (5-15) Blood Urea Nitrogen 31 mg/dL (7-18) H Creatinine 1.1 MG/DL (0.55-1.30) Estimat Glomerular Filtration Rate mL/min (>60) Glucose Level 116 MG/DL (74-106) H Uric Acid 5.7 MG/DL (2.6-7.2) Calcium Level 8.9 MG/DL (8.5-10.1) Phosphorus Level 3.3 MG/DL (2.5-4.9) Magnesium Level 1.5 MG/DL (1.8-2.4) L Total Bilirubin 0.7 MG/DL (0.2-1.0) Aspartate Amino Transf (AST/SGOT) 23 U/L (15-37) Alanine Aminotransferase (ALT/SGPT) 64 U/L (12-78) Alkaline Phosphatase 278 U/L (46-116) H C-Reactive Protein, Quantitative 11.9 mg/dL (0.00-0.90) H Pro-B-Type Natriuretic Peptide 1124 pg/mL (0-125) H Total Protein 4.3 G/DL (6.4-8.2) L Albumin 1.5 G/DL (3.4-5.0) L Globulin 2.8 g/dL Albumin/Globulin Ratio 0.5 (1.0-2.7) L Yancy Lai MD May 06, 2019 15:01
--- NOTE | 2019-05-06 15:31 | Cardiology Report ---
APPROVED REPORT EKG Measurement Heart [id number] Normal sinus rhythm Normal ECG
--- NOTE | 2019-05-06 15:45 | Infectious Diseases Prog Note ---
Assessment/Plan Assessment/Plan Assessment/Recommendation: Tmax 104.2, improving New leukocytosis after steroid given, fluctuating Lactate 3.4>1.6>2.4>3.3>3.8>1.0 UTI? 05/01 UA 10-15 WBC 05/01 UCx: MDR Klebsiella(R-imipenem, gent, cipro, nitrofurantoin, zosyn, bactrim. I-amikacin) PNA? 05/01 sputum cx: MRSA, Providencia(S-amikacin, cefepime, ceftazidime, cipro, erta, zosyn), normal resp magdalena 05/01 CXR: Right mainstem intubation. Suggest pulling the tube back about 3 cm. Atelectasis of the left lower lobe. Superimposed pneumonia or pleural effusion is not excluded. CHF suspected. 05/01 CXR: Endotracheal tube is 2 cm above the guille in good position. A left subclavian line is also present in good position of the tip projected over the SVC. Pulmonary edema again demonstrated. There is hazy opacity at the left lung base which is probably a pleural effusion. 05/02 CXR: Over one day, interval improvement of previously demonstrated left- sided pleural fluid and interstitial and airspace edema. Parenchymal disease is unchanged on the right. 05/03 CXR: Stable satisfactory positions of endotracheal tube, left arm PICC. Hazy opacities in the right mid and lower lung are probably unchanged. There is a small amount of hazy opacity at the left lung base persisting as well. The heart is normal in size. Allowing for technical differences, findings are overall unchanged r/o bacteremia 05/01 BCx: ngtd MRSA negative VRE negative CRE negative HTN COPD Schizophrenia DM G tube Parkinson CKD Protein calorie malnutrition Dementia Psychosis Gastritis Functional paraplegia Plan: Meropenem #2/5 Linezolid #2/5 / DC Cefepime #1 05/04 SP Colistin #1 05/04 DC Ertapenem, Amikacin, Vancomycin #3 05/01 SP Zosyn #1 steroid per pulm f/u bcx f/u ucx f/u sputum cx aspiration precaution ETT management skin care oral care C diff if diarrhea persists Thank you for this consult. [facility] will continue to follow the patient with you. Subjective Allergies: Coded Allergies: No Known Allergies (Unverified , 05/01/19) Subjective Afebrile. no pressors. FiO2 30%/5. failed weaning. improved secretions but still thick. stool became watery after erythromycin Objective Vital Signs Last 24 Hour Vital Signs Date Time Temp Pulse Resp B/P (MAP) Pulse Ox O2 Delivery O2 Flow Rate FiO2 05/06/19 15:29 65 21 30 05/06/19 15:00 67 16 114/45 (68) 97 05/06/19 14:00 57 16 94/46 (62) 97 05/06/19 13:29 74 23 30 05/06/19 13:00 64 16 99/38 (58) 100 05/06/19 12:02 67 17 107/42 (63) 100 05/06/19 12:00 99.0 68 16 67/44 (52) 99 05/06/19 12:00 65 05/06/19 12:00 Mechanical Ventilator 05/06/19 12:00 30 05/06/19 11:00 67 17 106/44 (64) 100 05/06/19 10:51 61 16 30 05/06/19 10:00 71 16 105/64 (78) 100 05/06/19 09:00 70 17 105/41 (62) 99 05/06/19 08:51 65 17 100 Mechanical Ventilator 50.0 30 05/06/19 08:51 66 16 30 05/06/19 08:00 30 05/06/19 08:00 99.4 66 16 96/42 (60) 100 05/06/19 08:00 Mechanical Ventilator 05/06/19 08:00 68 05/06/19 07:26 68 20 30 05/06/19 07:00 70 16 98/40 (59) 99 05/06/19 06:00 68 16 103/42 (62) 99 05/06/19 05:43 66 17 30 05/06/19 05:00 66 16 100/47 (64) 100 05/06/19 04:00 Mechanical Ventilator 05/06/19 04:00 98.9 67 16 96/44 (61) 98 05/06/19 04:00 30 05/06/19 04:00 77 05/06/19 03:41 69 18 30 05/06/19 03:00 69 16 96/42 (60) 99 05/06/19 02:00 68 16 92/57 (69) 99 05/06/19 01:17 69 16 30 05/06/19 01:00 67 16 97/41 (59) 98 05/06/19 00:00 Mechanical Ventilator 05/06/19 00:00 98.2 72 18 99/40 (59) 98 05/06/19 00:00 69 05/05/19 23:29 66 16 30 05/05/19 23:00 76 16 103/42 (62) 98 05/05/19 22:00 75 16 105/45 (65) 97 05/05/19 21:45 72 16 30 05/05/19 21:00 71 16 95/57 (70) 98 05/05/19 20:00 30 05/05/19 20:00 98.8 69 16 95/50 (65) 99 05/05/19 20:00 67 05/05/19 20:00 Mechanical Ventilator 05/05/19 19:16 78 23 30 05/05/19 19:00 73 16 104/44 (64) 99 05/05/19 18:00 71 16 91/41 (58) 98 05/05/19 17:14 78 17 30 05/05/19 17:00 80 16 106/35 (58) 96 05/05/19 16:00 99.0 75 15 120/41 (67) 96 05/05/19 16:00 Mechanical Ventilator 05/05/19 16:00 30 05/05/19 16:00 75 Height (Feet): 5 Height (Inches): 7.00 Weight (Pounds): 115 Objective VS: Tmax 104.2 Gen: NAD. twitching HEENT: ETT CV: RRR Resp: RRR. coarse. no wheezes Abd: soft. nondistended. normoactive Bs+ Neuro: not awake Laboratory Tests Test 05/06/19 04:30 White Blood Count 8.3 K/UL (4.8-10.8) Red Blood Count 3.13 M/UL (4.20-5.40) L Hemoglobin 9.0 G/DL (12.0-16.0) L Hematocrit 27.6 % (37.0-47.0) L Mean Corpuscular Volume 88 FL (80-99) Mean Corpuscular Hemoglobin 28.9 PG (27.0-31.0) Mean Corpuscular Hemoglobin Concent 32.8 G/DL (32.0-36.0) Red Cell Distribution Width 15.6 % (11.6-14.8) H Platelet Count 120 K/UL (150-450) L Mean Platelet Volume 8.4 FL (6.5-10.1) Neutrophils (%) (Auto) 79.2 % (45.0-75.0) H Lymphocytes (%) (Auto) 13.7 % (20.0-45.0) L Monocytes (%) (Auto) 4.9 % (1.0-10.0) Eosinophils (%) (Auto) 1.9 % (0.0-3.0) Basophils (%) (Auto) 0.3 % (0.0-2.0) Sodium Level 142 MMOL/L (136-145) Potassium Level 3.8 MMOL/L (3.5-5.1) Chloride Level 111 MMOL/L (98-107) H Carbon Dioxide Level 23 MMOL/L (21-32) Anion Gap 8 mmol/L (5-15) Blood Urea Nitrogen 31 mg/dL (7-18) H Creatinine 1.1 MG/DL (0.55-1.30) Estimat Glomerular Filtration Rate mL/min (>60) Glucose Level 116 MG/DL (74-106) H Uric Acid 5.7 MG/DL (2.6-7.2) Calcium Level 8.9 MG/DL (8.5-10.1) Phosphorus Level 3.3 MG/DL (2.5-4.9) Magnesium Level 1.5 MG/DL (1.8-2.4) L Total Bilirubin 0.7 MG/DL (0.2-1.0) Aspartate Amino Transf (AST/SGOT) 23 U/L (15-37) Alanine Aminotransferase (ALT/SGPT) 64 U/L (12-78) Alkaline Phosphatase 278 U/L (46-116) H C-Reactive Protein, Quantitative 11.9 mg/dL (0.00-0.90) H Pro-B-Type Natriuretic Peptide 1124 pg/mL (0-125) H Total Protein 4.3 G/DL (6.4-8.2) L Albumin 1.5 G/DL (3.4-5.0) L Globulin 2.8 g/dL Albumin/Globulin Ratio 0.5 (1.0-2.7) L Current Medications Medications (Trade) Dose Ordered Sig/Vane Route PRN Reason Start Time Stop Time Status Last Admin Dose Admin Acetaminophen (Tylenol) 650 mg Q4H PRN NG fever 05/04/19 09:30 05/31/19 12:44 05/04/19 10:00 Calcitonin Spickard (Miacalcin) 1 sprays DAILY NASAL 05/04/19 09:00 06/03/19 08:59 05/06/19 09:48 Chlorhexidine Gluconate (Shanice-Hex 2%) 1 applic DAILY@2000 TOPIC 05/01/19 20:00 05/31/19 19:59 05/05/19 19:50 Dextrose (Dextrose 50%) 25 ml Q30M PRN IV Hypoglycemia 05/02/19 06:30 06/01/19 06:29 Dextrose (Dextrose 50%) 50 ml Q30M PRN IV Hypoglycemia 05/02/19 06:30 06/01/19 06:29 Erythromycin (Joey-Ped) 250 mg Q8HR GT 05/05/19 14:00 05/12/19 13:59 05/06/19 15:31 Heparin Sodium (Porcine) (Heparin 5000 units/ml) 5,000 units EVERY 12 HOURS SUBQ 05/01/19 21:00 05/31/19 20:59 05/06/19 08:27 Insulin Aspart (NovoLOG) EVERY 6 HOURS SUBQ 05/02/19 07:30 06/01/19 07:29 05/06/19 13:43 Linezolid (Zyvox) 600 mg EVERY 12 HOURS ORAL 05/04/19 21:00 05/09/19 20:59 05/06/19 09:48 Lorazepam (Ativan 2mg/ml 1ml) 2 mg Q2H PRN IV For Anxiety 05/01/19 12:45 05/08/19 12:44 05/06/19 09:48 Lorazepam (Ativan) 0.5 mg Q6H PRN NG For Anxiety 05/04/19 09:30 05/09/19 07:29 Meropenem 1 gm/ Sodium Chloride 55 ml @ 110 mls/hr Q8HR IVPB 05/05/19 22:00 05/10/19 21:59 05/06/19 15:31 Midodrine (Pro-Amatine) 5 mg THREE TIMES A DAY NG 05/06/19 13:00 06/04/19 12:59 05/06/19 12:21 Morphine Sulfate (Morphine Sulfate) 4 mg Q4H PRN IVP Severe Pain (Pain Scale 7-10) 05/01/19 12:45 05/08/19 12:44 05/04/19 12:54 Norepinephrine Bitartrate 4 mg/ Dextrose 254 ml @ 0 mls/hr Q24H IV 05/01/19 12:45 05/31/19 12:44 05/04/19 18:15 Ondansetron HCl (Zofran) 4 mg Q6H PRN IVP Nausea & Vomiting 05/01/19 12:45 05/31/19 12:44 Pantoprazole (Protonix) 40 mg Q12HR IV 05/01/19 21:00 06/01/19 08:59 05/06/19 08:13 Potassium Chloride (K-Dur) 20 meq TWICE A DAY NG 05/04/19 09:18 06/03/19 09:17 05/06/19 08:13 Risperidone (RisperDAL) 0.25 mg QHS PRN GT Agitation 05/02/19 07:30 06/01/19 07:29 Sodium Chloride 1,000 ml @ 50 mls/hr Q20H IV 05/06/19 10:39 06/01/19 10:38 05/06/19 12:22 Jennifer Palm MD May 06, 2019 15:45
--- NOTE | 2019-05-06 15:49 | Cardiology Progress Note ---
Assessment/Plan Assessment/Plan respiratory failure, pneumonia she is off pressors, after fluid bolus still on vent Subjective Subjective intubated, unresponsive Objective Last 24 Hour Vital Signs Date Time Temp Pulse Resp B/P (MAP) Pulse Ox O2 Delivery O2 Flow Rate FiO2 05/06/19 15:29 65 21 30 05/06/19 15:00 67 16 114/45 (68) 97 05/06/19 14:00 57 16 94/46 (62) 97 05/06/19 13:29 74 23 30 05/06/19 13:00 64 16 99/38 (58) 100 05/06/19 12:02 67 17 107/42 (63) 100 05/06/19 12:00 99.0 68 16 67/44 (52) 99 05/06/19 12:00 65 05/06/19 12:00 Mechanical Ventilator 05/06/19 12:00 30 05/06/19 11:00 67 17 106/44 (64) 100 05/06/19 10:51 61 16 30 05/06/19 10:00 71 16 105/64 (78) 100 05/06/19 09:00 70 17 105/41 (62) 99 05/06/19 08:51 65 17 100 Mechanical Ventilator 50.0 30 05/06/19 08:51 66 16 30 05/06/19 08:00 30 05/06/19 08:00 99.4 66 16 96/42 (60) 100 05/06/19 08:00 Mechanical Ventilator 05/06/19 08:00 68 05/06/19 07:26 68 20 30 05/06/19 07:00 70 16 98/40 (59) 99 05/06/19 06:00 68 16 103/42 (62) 99 05/06/19 05:43 66 17 30 05/06/19 05:00 66 16 100/47 (64) 100 05/06/19 04:00 Mechanical Ventilator 05/06/19 04:00 98.9 67 16 96/44 (61) 98 05/06/19 04:00 30 05/06/19 04:00 77 05/06/19 03:41 69 18 30 05/06/19 03:00 69 16 96/42 (60) 99 05/06/19 02:00 68 16 92/57 (69) 99 05/06/19 01:17 69 16 30 05/06/19 01:00 67 16 97/41 (59) 98 05/06/19 00:00 Mechanical Ventilator 05/06/19 00:00 98.2 72 18 99/40 (59) 98 05/06/19 00:00 69 05/05/19 23:29 66 16 30 05/05/19 23:00 76 16 103/42 (62) 98 05/05/19 22:00 75 16 105/45 (65) 97 05/05/19 21:45 72 16 30 05/05/19 21:00 71 16 95/57 (70) 98 05/05/19 20:00 30 05/05/19 20:00 98.8 69 16 95/50 (65) 99 05/05/19 20:00 67 05/05/19 20:00 Mechanical Ventilator 05/05/19 19:16 78 23 30 05/05/19 19:00 73 16 104/44 (64) 99 05/05/19 18:00 71 16 91/41 (58) 98 05/05/19 17:14 78 17 30 05/05/19 17:00 80 16 106/35 (58) 96 05/05/19 16:00 99.0 75 15 120/41 (67) 96 05/05/19 16:00 Mechanical Ventilator 05/05/19 16:00 30 05/05/19 16:00 75 General Appearance: on vent EENT: PERRL/EOMI Neck: JVD Rhythm: NSR Cardiovascular: normal rate, regular rhythm Respiratory/Chest: crackles/rales Abdomen: soft, no organomegaly Extremities: trace edema Intake and Output 05/05/19 05/06/19 18:59 06:59 Intake Total 1095.24 ml 1320 ml Output Total 610 ml 1420 ml Balance 485.24 ml -100 ml Free Water 30 ml IV Total 915.24 ml 955 ml Tube Feeding 180 ml 235 ml Other 100 ml Output Urine Total 610 ml 1420 ml # Bowel Movements 4 1 Laboratory Tests Test 05/06/19 04:30 White Blood Count 8.3 K/UL (4.8-10.8) Red Blood Count 3.13 M/UL (4.20-5.40) L Hemoglobin 9.0 G/DL (12.0-16.0) L Hematocrit 27.6 % (37.0-47.0) L Mean Corpuscular Volume 88 FL (80-99) Mean Corpuscular Hemoglobin 28.9 PG (27.0-31.0) Mean Corpuscular Hemoglobin Concent 32.8 G/DL (32.0-36.0) Red Cell Distribution Width 15.6 % (11.6-14.8) H Platelet Count 120 K/UL (150-450) L Mean Platelet Volume 8.4 FL (6.5-10.1) Neutrophils (%) (Auto) 79.2 % (45.0-75.0) H Lymphocytes (%) (Auto) 13.7 % (20.0-45.0) L Monocytes (%) (Auto) 4.9 % (1.0-10.0) Eosinophils (%) (Auto) 1.9 % (0.0-3.0) Basophils (%) (Auto) 0.3 % (0.0-2.0) Sodium Level 142 MMOL/L (136-145) Potassium Level 3.8 MMOL/L (3.5-5.1) Chloride Level 111 MMOL/L (98-107) H Carbon Dioxide Level 23 MMOL/L (21-32) Anion Gap 8 mmol/L (5-15) Blood Urea Nitrogen 31 mg/dL (7-18) H Creatinine 1.1 MG/DL (0.55-1.30) Estimat Glomerular Filtration Rate mL/min (>60) Glucose Level 116 MG/DL (74-106) H Uric Acid 5.7 MG/DL (2.6-7.2) Calcium Level 8.9 MG/DL (8.5-10.1) Phosphorus Level 3.3 MG/DL (2.5-4.9) Magnesium Level 1.5 MG/DL (1.8-2.4) L Total Bilirubin 0.7 MG/DL (0.2-1.0) Aspartate Amino Transf (AST/SGOT) 23 U/L (15-37) Alanine Aminotransferase (ALT/SGPT) 64 U/L (12-78) Alkaline Phosphatase 278 U/L (46-116) H C-Reactive Protein, Quantitative 11.9 mg/dL (0.00-0.90) H Pro-B-Type Natriuretic Peptide 1124 pg/mL (0-125) H Total Protein 4.3 G/DL (6.4-8.2) L Albumin 1.5 G/DL (3.4-5.0) L Globulin 2.8 g/dL Albumin/Globulin Ratio 0.5 (1.0-2.7) L Mónica Bacon MD May 06, 2019 15:49
--- NOTE | 2019-05-06 16:00 | NUR ---
NURSE NOTES: LATE ENTRY: PT RESTING IN BED. NO S/S OF DISTRESS. VSS. PT CLEANED AND REPOSITIONED. ORAL CARE AND SUCTION PROVIDED, AMOUNT OF SECRETIONS MINIMAL. PT AFEBRILE. HOB 35. UPPER AND LOWER EXTREMITIES ELEVATED ON PILLOWS. TUBE FEEDING ON, NO RESIDUALS. WOUNDS CLEANED AND DRESSINGS CHANGED NEEDED. BED ALARM ON. LOCKED AND IN LOW POSITION. CONTACT PRECAUTIONS IN PLACE.
--- NOTE | 2019-05-06 19:00 | NUR ---
HAND-OFF: Report given to Angie DUNN. pt in no acute distress.
--- NOTE | 2019-05-06 19:01 | NUR ---
NURSE NOTES: Endorsement received from Ro Day RN. Patient opens eyes spontaneously, does not track. Withdraws to pain. Intubated with ET 7.5, 22 lipline. Settingd AC 16, 500, PEEP 5, 30% FiO2. Moderate amount of white secretion per ET and oral. Left upper arm PICC. Receiving 1/2 NS 50 ml/hr. GT patent and intact. On Glucerna 1.2 30ml/hr with goal of 50 ml/hr. No residual. Hilario catheter in place, draining to urimeter per gravity. On P200 mattress. Head of bed elevated. Bed locked and in low position. Bed alarm on. Call light within visible reach.
[2019-05-06] MEDS: Dyna-Hex 2% Top Sol 2oz TOPIC SCH (19:41)
--- NOTE | 2019-05-06 21:00 | NUR ---
NURSE NOTES: Heparin SQ not givem due to low platelet level
--- NOTE | 2019-05-06 21:15 | Consultation ---
DATE OF CONSULTATION: CONSULTING PHYSICIAN: Kristen Rodgers M.D. HISTORY OF PRESENT ILLNESS: This is a female patient who is 78 years old. . She is confused, disorganized. She has poor cognition, septic shock, pulmonary congestion, hypertension, and pneumonia. Also has overlying diagnosis of paranoid schizophrenia. That is why, her attending physician has requested daily psychiatric consultation. . MENTAL STATUS EXAMINATION: This is a 78-year-old female. Appearance is disheveled. Attitude, irritable and agitated. Affect, guarded and restricted. Intellect poor. Mood, depressed and anxious. Motor activity, psychomotor agitation. Insight and judgment is poor. DIAGNOSIS: Major depressive disorder, severe, recurrent with psychotic features, rule out dementia with psychosis. PLAN: Treat her with Risperdal 0.25 mg per G-tube at bedtime p.r.n. anxiety and agitation, Ativan 0.5 mg every six hours p.r.n. anxiety and agitation. A 20 minutes of behavioral management provided. Chart reviewed and discussed with staff. Seen and assessed at bedside. Kristen Rodgers M.D. DR: CORNELIO JOB#: [id number] CC:
--- NOTE | 2019-05-06 23:00 | NUR ---
NURSE NOTES: No sign of pain or discomfort. Sinus rhythm on the monitor. Opens eyes, lethargic and does not track. Head of bed kept elevated. Afebrile. Repositioned. Secretions suctioned.
[2019-05-07] VITALS (24 sets, daily range): BP systolic 98–128; BP diastolic 38–68
--- NOTE | 2019-05-07 | NUR ---
NURSE NOTES: Residual from GT checked. With 200ml of brown, undigested feeding. Feeding withheld at this time. Kept HOB elevated. Will continue to monitor.
--- NOTE | 2019-05-07 02:00 | NUR ---
NURSE NOTES: Patient with eyes closed. Arousable per light touch. Afebrile.
--- NOTE | 2019-05-07 04:00 | NUR ---
NURSE NOTES: NO residual from GT. Restarted feeding at 20ml/hr. Will continue to monitor.
--- NOTE | 2019-05-07 05:00 | NUR ---
NURSE NOTES: Bed bath, oral care, change of linens done.
[2019-05-07 05:55] LABS: BASOPHILS % (AUTO) 0.6 % (0.0-2.0); EOSINOPHILS % (AUTO) 1.9 % (0.0-3.0); HEMATOCRIT 28.1 % (37.0-47.0); HEMOGLOBIN 9.3 G/DL (12.0-16.0); LYMPHOCYTES % (AUTO) 14.2 % (20.0-45.0); MEAN CORPUSCULAR VOLUME 88 FL (80-99); MONOCYTES % (AUTO) 4.9 % (1.0-10.0); NEUTROPHILS % (AUTO) 78.4 % (45.0-75.0); PLATELET COUNT 151 K/UL (150-450); RED BLOOD COUNT 3.18 M/UL (4.20-5.40); RED CELL DISTRIBUTION WIDTH 15.9 % (11.6-14.8); WHITE BLOOD COUNT 7.1 K/UL (4.8-10.8)
[2019-05-07] MEDS: Meropenem 1 GM in NS 55 ML IVPB SCH ×3 (05:55→21:53)
[2019-05-07] MEDS: Erythromycin Ethylsuccinate 200mg/5ml Susp GT SCH ×3 (05:55→21:53)
[2019-05-07] MEDS: NovoLOG Insulin Flexpen SUBQ SCH ×4 (05:57→16:54)
[2019-05-07 06:18] LABS: ALANINE AMINOTRANSFERASE 54 U/L (12-78); ALBUMIN 1.5 G/DL (3.4-5.0); ALBUMIN/GLOBULIN RATIO 0.5 (1.0-2.7); ALKALINE PHOSPHATASE 282 U/L (46-116); ANION GAP 8 mmol/L (5-15); ASPARTATE AMINO TRANSFERASE 26 U/L (15-37); BILIRUBIN,TOTAL 0.7 MG/DL (0.2-1.0); BLOOD UREA NITROGEN 28 mg/dL (7-18); CALCIUM 9.2 MG/DL (8.5-10.1); CARBON DIOXIDE 21 MMOL/L (21-32); CHLORIDE 110 MMOL/L (98-107); CREATININE 1.1 MG/DL (0.55-1.30); PHOSPHORUS 2.6 MG/DL (2.5-4.9); POTASSIUM 4.2 MMOL/L (3.5-5.1); SODIUM 139 MMOL/L (136-145)
--- NOTE | 2019-05-07 06:54 | NUR ---
NURSE NOTES: Patient seen and examined by Dr. Lau. Informed him of the residual from GT, and patient has soft to loose stool. As per him loose stool is due to the Joey Ped which is his intended purpose for ordering the medication. No new order at this time.
--- NOTE | 2019-05-07 07:00 | NUR ---
RESPIRATORY NOTES: Received Patient on Vent settings ACVC RR 16, VT 500, Fio2 30% PEEP +5. Patient has a 7.5 ETT at 22 cm at the lip, secured with anchorfast. Suctioned a small amount of clear thin secretions. Patient lying in bed sleeping. Vent plugged into red outlet. Alarms are on and audible. Will continue to monitor patient throughout the day.
--- NOTE | 2019-05-07 07:14 | General Progress Note ---
Assessment/Plan Status: unchanged Assessment/Plan: Assessment/Plan Problems: (1) Septic shock ICD Codes: A41.9 - Sepsis, unspecified organism; R65.21 - Severe sepsis with septic shock SNOMED: 63000792, 1659385 (2) Feeding by G-tube ICD Codes: Z93.1 - Gastrostomy status SNOMED: 770596251, 953891392, 944941035 (3) Diabetes mellitus ICD Codes: E11.9 - Type 2 diabetes mellitus without complications SNOMED: 40740385 (4) Anemia ICD Codes: D64.9 - Anemia, unspecified SNOMED: 760212895 Status: unchanged Status Narrative Assessment/Plan No plans for any GI procedures at this given time given the patient's elevated troponin level and hemodynamic instability. occult blood stool to evaluate for any GI bleed, negative Monitor H&H, PRN transfusions PPI GTFs Electrolyte correction, increase free water flushes for hypernatremia GT site care daily and as needed We will follow on a daily basis with additional recommendation add erythromycin for elevated residuals Subjective ROS Limited/Unobtainable: No Allergies: Coded Allergies: No Known Allergies (Unverified , 05/01/19) Objective Last 24 Hour Vital Signs Date Time Temp Pulse Resp B/P (MAP) Pulse Ox O2 Delivery O2 Flow Rate FiO2 05/07/19 07:00 69 15 98/48 (65) 99 05/07/19 06:00 63 16 105/39 (61) 99 05/07/19 05:21 65 16 30 05/07/19 05:00 66 16 100/47 (64) 98 05/07/19 04:00 66 05/07/19 04:00 30 05/07/19 04:00 98.7 71 17 107/42 (63) 97 05/07/19 04:00 Mechanical Ventilator 05/07/19 03:11 69 16 30 05/07/19 03:00 61 16 105/45 (65) 97 05/07/19 02:00 66 16 103/38 (59) 98 05/07/19 01:59 67 16 30 05/07/19 01:00 62 16 106/50 (68) 98 05/07/19 00:00 61 05/07/19 00:00 98.8 61 16 104/41 (62) 98 05/07/19 00:00 Mechanical Ventilator 05/06/19 23:20 68 18 30 05/06/19 23:00 62 16 110/41 (64) 99 05/06/19 22:00 62 16 101/38 (59) 99 05/06/19 21:26 64 19 30 05/06/19 21:00 59 16 114/39 (64) 99 05/06/19 20:00 30 05/06/19 20:00 59 05/06/19 20:00 Mechanical Ventilator 05/06/19 20:00 98.7 59 16 99/41 (60) 98 05/06/19 19:09 69 16 30 05/06/19 19:00 60 16 104/50 (68) 100 05/06/19 18:00 66 16 100/42 (61) 100 05/06/19 17:29 67 16 30 05/06/19 17:00 63 16 103/44 (63) 97 05/06/19 16:00 30 05/06/19 16:00 Mechanical Ventilator 05/06/19 16:00 62 05/06/19 16:00 98.8 66 17 100/78 (85) 100 05/06/19 15:29 65 21 30 05/06/19 15:00 67 16 114/45 (68) 97 05/06/19 14:00 57 16 94/46 (62) 97 05/06/19 13:29 74 23 30 05/06/19 13:00 64 16 99/38 (58) 100 05/06/19 12:02 67 17 107/42 (63) 100 05/06/19 12:00 99.0 68 16 67/44 (52) 99 05/06/19 12:00 65 05/06/19 12:00 Mechanical Ventilator 05/06/19 12:00 30 05/06/19 11:00 67 17 106/44 (64) 100 05/06/19 10:51 61 16 30 05/06/19 10:00 71 16 105/64 (78) 100 05/06/19 09:00 70 17 105/41 (62) 99 05/06/19 08:51 65 17 100 Mechanical Ventilator 50.0 30 05/06/19 08:51 66 16 30 05/06/19 08:00 30 05/06/19 08:00 99.4 66 16 96/42 (60) 100 05/06/19 08:00 Mechanical Ventilator 05/06/19 08:00 68 05/06/19 07:26 68 20 30 Intake and Output 05/06/19 05/07/19 19:00 07:00 Intake Total 1150 ml 740 ml Output Total 640 ml 700 ml Balance 510 ml 40 ml IV Total 820 ml 500 ml Tube Feeding 330 ml 180 ml Other 60 ml Output Urine Total 640 ml 700 ml # Bowel Movements 4 1 Laboratory Tests 05/07/19 05:00: White Blood Count 7.1, Red Blood Count 3.18L, Hemoglobin 9.3L, Hematocrit 28.1L , Mean Corpuscular Volume 88, Mean Corpuscular Hemoglobin 29.2, Mean Corpuscular Hemoglobin Concent 33.0, Red Cell Distribution Width 15.9H, Platelet Count 151, Mean Platelet Volume 7.1, Neutrophils (%) (Auto) 78.4H, Lymphocytes (%) (Auto) 14.2L, Monocytes (%) (Auto) 4.9, Eosinophils (%) (Auto) 1.9, Basophils (%) (Auto) 0.6, Sodium Level 139, Potassium Level 4.2, Chloride Level 110H, Carbon Dioxide Level 21, Anion Gap 8, Blood Urea Nitrogen 28H, Creatinine 1.1, Estimat Glomerular Filtration Rate , Glucose Level 113H, Calcium Level 9.2, Phosphorus Level 2.6, Magnesium Level 2.1, Total Bilirubin 0.7, Aspartate Amino Transf (AST/SGOT) 26, Alanine Aminotransferase (ALT/SGPT) 54, Alkaline Phosphatase 282H, C-Reactive Protein, Quantitative 10.1H, Pro-B- Type Natriuretic Peptide 947H, Total Protein 4.3L, Albumin 1.5L, Globulin 2.8, Albumin/Globulin Ratio 0.5L Height (Feet): 5 Height (Inches): 7.00 Weight (Pounds): 118 General Appearance: lethargic EENT: normal ENT inspection Neck: supple Cardiovascular: tachycardia Respiratory/Chest: decreased breath sounds Abdomen: normal bowel sounds, non tender, soft Extremities: non-tender Alfredo Lau MD May 07, 2019 07:14
--- NOTE | 2019-05-07 07:18 | NUR ---
RESPIRATORY NOTES: Patient failed weaning criteria. RSBI 112, NIF -7, VT <150. Placed back onto ACVC settings. Lack of spontaneous effort. RN Montserrat anthony.
--- NOTE | 2019-05-07 07:28 | NUR ---
HAND-OFF: Report given to MONA Mariano.
--- NOTE | 2019-05-07 08:00 | NUR ---
NURSE NOTES: Received change of shift report from Angie DUNN. Pt is awake, drowsy, opens eyes, makes eye contact however with flat effect, PERRL 3mm, withdraws to pain. Pt is orally intubated, ETT 7.5 at 22cm right lipline with vent settings AC16, VT500, Peep 5.0, FIO2 30% with 99% O2Sat. Bilateral inspiratory/expiratory rhonchi is noted on auscultation. [employer] displays SR with heart rate in the 60's with weak peripheral pulses on palpation. Pt had left upper arm double lumen PICC with IV fluid 0.45NS infusing at 50ml/hour. Pt also has one peripheral IV access on left wrist, #18G, saline locked, patent/intact. Temp 98.9F axillary. Abdomen is round, soft, nontender touch with hyperactive bowel sounds on auscultation. Pt has GT, with feeding Glucerna 1.2 currently at 20ml/hour. Hilario catheter is noted, 16F, draining clear, yellow urine. Skin has unstagable sacral wound, left ankle/heel DTI's, sites are covered with optifoam dressings, dry/intact. Pt is on pressure releasing mattress. Head of bed is at 30degrees, bed locked, in lowest position, with three side rails up and call light within reach. Will continue with plan of care.
[2019-05-07] MEDS: Pantoprazole Inj IV SCH ×2 (08:16→21:16)
[2019-05-07] MEDS: Heparin 5000 units/ml inj SUBQ SCH ×2 (08:23→21:17)
--- NOTE | 2019-05-07 08:30 | NUR ---
NURSE NOTES: Per RT, pt failed weaning attempt this morning at 0728 and was placed back on original AC vent settings.
--- NOTE | 2019-05-07 08:52 | General Progress Note ---
Assessment/Plan Problem List: (1) Acute respiratory failure ICD Codes: J96.00 - Acute respiratory failure, unspecified whether with hypoxia or hypercapnia SNOMED: 92453296 (2) Septic shock ICD Codes: A41.9 - Sepsis, unspecified organism; R65.21 - Severe sepsis with septic shock SNOMED: 72197944, 7123916 (3) Diabetes mellitus ICD Codes: E11.9 - Type 2 diabetes mellitus without complications SNOMED: 30498215 (4) Hypertension ICD Codes: I10 - Essential (primary) hypertension SNOMED: 42691413 (5) COPD (chronic obstructive pulmonary disease) ICD Codes: J44.9 - Chronic obstructive pulmonary disease, unspecified SNOMED: 05910825 (6) Anemia ICD Codes: D64.9 - Anemia, unspecified SNOMED: 273012163 (7) Schizophrenia ICD Codes: F20.9 - Schizophrenia, unspecified SNOMED: 94931778 Status: unchanged Assessment/Plan: vent abx bp bs control cbc bmp am Subjective Constitutional: Reports: weakness Allergies: Coded Allergies: No Known Allergies (Unverified , 05/01/19) All Systems: reviewed and negative except above Subjective intubated sedated in icu Objective Last 24 Hour Vital Signs Date Time Temp Pulse Resp B/P (MAP) Pulse Ox O2 Delivery O2 Flow Rate FiO2 05/07/19 08:00 98.9 66 16 98/45 (62) 100 05/07/19 08:00 30 05/07/19 07:13 74 17 30 05/07/19 07:00 69 15 98/48 (65) 99 05/07/19 06:00 63 16 105/39 (61) 99 05/07/19 05:21 65 16 30 05/07/19 05:00 66 16 100/47 (64) 98 05/07/19 04:00 66 05/07/19 04:00 30 05/07/19 04:00 98.7 71 17 107/42 (63) 97 05/07/19 04:00 Mechanical Ventilator 05/07/19 03:11 69 16 30 05/07/19 03:00 61 16 105/45 (65) 97 05/07/19 02:00 66 16 103/38 (59) 98 05/07/19 01:59 67 16 30 05/07/19 01:00 62 16 106/50 (68) 98 05/07/19 00:00 61 05/07/19 00:00 98.8 61 16 104/41 (62) 98 05/07/19 00:00 Mechanical Ventilator 05/06/19 23:20 68 18 30 05/06/19 23:00 62 16 110/41 (64) 99 05/06/19 22:00 62 16 101/38 (59) 99 05/06/19 21:26 64 19 30 05/06/19 21:00 59 16 114/39 (64) 99 05/06/19 20:00 30 05/06/19 20:00 59 05/06/19 20:00 Mechanical Ventilator 05/06/19 20:00 98.7 59 16 99/41 (60) 98 05/06/19 19:09 69 16 30 05/06/19 19:00 60 16 104/50 (68) 100 05/06/19 18:00 66 16 100/42 (61) 100 05/06/19 17:29 67 16 30 05/06/19 17:00 63 16 103/44 (63) 97 05/06/19 16:00 30 05/06/19 16:00 Mechanical Ventilator 05/06/19 16:00 62 05/06/19 16:00 98.8 66 17 100/78 (85) 100 05/06/19 15:29 65 21 30 05/06/19 15:00 67 16 114/45 (68) 97 05/06/19 14:00 57 16 94/46 (62) 97 05/06/19 13:29 74 23 30 05/06/19 13:00 64 16 99/38 (58) 100 05/06/19 12:02 67 17 107/42 (63) 100 05/06/19 12:00 99.0 68 16 67/44 (52) 99 05/06/19 12:00 65 05/06/19 12:00 Mechanical Ventilator 05/06/19 12:00 30 05/06/19 11:00 67 17 106/44 (64) 100 05/06/19 10:51 61 16 30 05/06/19 10:00 71 16 105/64 (78) 100 05/06/19 09:00 70 17 105/41 (62) 99 Intake and Output 05/06/19 05/07/19 19:00 07:00 Intake Total 1150 ml 760 ml Output Total 640 ml 755 ml Balance 510 ml 5 ml IV Total 820 ml 500 ml Tube Feeding 330 ml 200 ml Other 60 ml Output Urine Total 640 ml 755 ml # Bowel Movements 4 1 Laboratory Tests 05/07/19 05:00: White Blood Count 7.1, Red Blood Count 3.18L, Hemoglobin 9.3L, Hematocrit 28.1L , Mean Corpuscular Volume 88, Mean Corpuscular Hemoglobin 29.2, Mean Corpuscular Hemoglobin Concent 33.0, Red Cell Distribution Width 15.9H, Platelet Count 151, Mean Platelet Volume 7.1, Neutrophils (%) (Auto) 78.4H, Lymphocytes (%) (Auto) 14.2L, Monocytes (%) (Auto) 4.9, Eosinophils (%) (Auto) 1.9, Basophils (%) (Auto) 0.6, Sodium Level 139, Potassium Level 4.2, Chloride Level 110H, Carbon Dioxide Level 21, Anion Gap 8, Blood Urea Nitrogen 28H, Creatinine 1.1, Estimat Glomerular Filtration Rate , Glucose Level 113H, Calcium Level 9.2, Phosphorus Level 2.6, Magnesium Level 2.1, Total Bilirubin 0.7, Aspartate Amino Transf (AST/SGOT) 26, Alanine Aminotransferase (ALT/SGPT) 54, Alkaline Phosphatase 282H, C-Reactive Protein, Quantitative 10.1H, Pro-B- Type Natriuretic Peptide 947H, Total Protein 4.3L, Albumin 1.5L, Globulin 2.8, Albumin/Globulin Ratio 0.5L Height (Feet): 5 Height (Inches): 7.00 Weight (Pounds): 118 General Appearance: lethargic EENT: normal ENT inspection Neck: normal alignment Cardiovascular: normal peripheral pulses, normal rate, regular rhythm Respiratory/Chest: chest wall non-tender, lungs clear, normal breath sounds Abdomen: normal bowel sounds, non tender, soft Extremities: normal inspection Edema: no edema noted Arm (L), no edema noted Arm (R), no edema noted Leg (L), no edema noted Leg (R), no edema noted Pedal (L), no edema noted Pedal (R), no edema noted Generalized Neurologic: motor weakness Skin: normal pigmentation, warm/dry Cosme Chong DO May 07, 2019 08:52
--- NOTE | 2019-05-07 08:56 | NUR ---
NURSE NOTES: AM meds were administered. Oral care was done and pt was suctioned, with output of moderate thin light yellowish/white secretions. Pt is tolerating GT feeding well with zero residual now. Pt was repositioned; currently resting with stable VS and in no apparent distress.
--- NOTE | 2019-05-07 09:15 | NUR ---
RD ASSESSMENT & RECOMMENDATIONS SEE CARE ACTIVITY FOR COMPLETE ASSESSMENT DAILY ESTIMATED NEEDS: Needs based on Critical care, wounds; 48.6kg 22- 30 kcals/kg 2632-3398 total kcals 1.25-2 g protein/kg 61-97 g total protein 25-30 mL/kg 6116-8838 total fluid mLs NUTRITION DIAGNOSIS: 1) Increased kcal and pro needs r/t wound healing AEB pt adm w/ multiple wounds, including full thickness sacral wounds, refer to WC eval. 2) Swallowing difficulty r/t respiratory status AEB pt is intubated, Peg dep, TF at low rate for elev residuals. CURRENT TF:Glucerna 1.2 @50--> @20ml now for residuals ENTERAL NUTRITION RECOMMENDATIONS: VITAL AF 1.2 @ 45mL/hr x 24 hrs to provide 1080mL, 1296kcal, 81g pro, 876mL free H2O With continued elev residuals, rec TF change to VITAL 1.2 w/ goal rate of 45ml/hr. - start @15ml/hr until tolerated w/ no to little residuals. Advance 10ml/hr q4-6 hrs to goal rate TOLERATED. - Flush per . HOB over 30 degrees PARENTERAL NUTRITION RECOMMENDATIONS: D/AA Rate: IL Rate: Total Rate: Volume: % Dextrose: % AA: Energy (kcals/kg): Protein (g/kg protein): Nonprotein KCALS: GIR (mg CHO/kg/min): % Fat KCALS: NCP: N Ratio: TPN Comment: ADDITIONAL RECOMMENDATIONS: 1) Per SNF: 107 lbs, 60 inches 2) When pt is stable, see TF recs above. 3) Wound care: Add ARNALDO BID + Vit C 250mg BID -> Hold Arnaldo BID until TF is better tolerated w/ low to no residuals 4) Monitor lytes-> replete as needed 5) With continued elevated blood glucose, rec long acting insulin Monitor BG w/ active TF order
--- NOTE | 2019-05-07 09:16 | NUR ---
RD ASSESSMENT & RECOMMENDATIONS SEE CARE ACTIVITY FOR COMPLETE ASSESSMENT DAILY ESTIMATED NEEDS: Needs based on Critical care, wounds; 48.6kg 22- 30 kcals/kg 9642-1295 total kcals 1.25-2 g protein/kg 61-97 g total protein 25-30 mL/kg 6882-9290 total fluid mLs NUTRITION DIAGNOSIS: 1) Increased kcal and pro needs r/t wound healing AEB pt adm w/ multiple wounds, including full thickness sacral wounds, refer to WC eval. 2) Swallowing difficulty r/t respiratory status AEB pt is intubated, Peg dep, TF at low rate for elev residuals. CURRENT TF:Glucerna 1.2 @50-> now @20ml/hr ENTERAL NUTRITION RECOMMENDATIONS: VITAL AF 1.2 @ 45mL/hr x 24 hrs to provide 1080mL, 1296kcal, 81g pro, 876mL free H2O With continued elev residuals, rec TF change to VITAL 1.2 w/ goal rate of 45ml/hr. - Start @15ml/hr until tolerated w/ no to little residuals. Advance 10ml/hr q4-6 hrs to goal rate TOLERATED. - Flush per MD. HOB over 30 degrees ADDITIONAL RECOMMENDATIONS: 1) Per SNF: 107 lbs, 60 inches 2) When pt is stable, see TF recs above. 3) Wound care: Add ARNALDO BID + Vit C 250mg BID -> Hold Arnaldo BID until TF is better tolerated w/ low to no residuals 4) Monitor lytes-> replete as needed 5) With continued elevated blood glucose, rec long acting insulin Monitor BG w/ active TF order
--- NOTE | 2019-05-07 10:00 | NUR ---
NURSE NOTES: Pt was seen by Dr Chong. No new orders were received at this time. VS are currently stable with no s/s of distress noted.
--- NOTE | 2019-05-07 11:15 | Progress Note ---
DATE: 05/07/2019 SUBJECTIVE: This is a 78-year-old female patient with respiratory failure. She has altered mental status, confusion, and decline in cognition below baseline with extreme mood lability. Her cognition has declined below baseline. That is why, her attending physician has requested daily psychiatric consultation. MENTAL STATUS EXAMINATION: This is a 78-year-old female. Appearance is disheveled. Attitude, irritable and agitated. Affect, guarded and restricted. Intellect poor. Mood, depressed and anxious. Motor activity, psychomotor agitation. Attention span is poor. Orientation x2. Speech is low volume, slurred. Thought process, disorganized and illogical. Insight and judgment is poor. DIAGNOSIS: Major depressive disorder, mild, recurrent with psychotic features, rule out dementia with psychosis. PLAN: My plan for this patient is to treat her with a medication regimen of Risperdal 0.25 mg per G-tube daily, Ativan mg every 6 hours p.r.n. anxiety and agitation. A 20 minutes of behavioral management. Chart reviewed. Discussed with staff. Seen and assessed at bedside. Kristen Rodgers M.D. DR: SAMANTHA JOB#: [id number] CC:
[2019-05-07] MEDS: LORazepam Inj 2mg/ml 1ml IV PRN (12:41)
--- NOTE | 2019-05-07 12:52 | NUR ---
NURSE NOTES: Pt was administered Ativan per PRN order for anxiety, as pt was noted to be very restless, bucking the vent and attempting to reach for ET tube. VS remain stable. Will continue to monitor/reassess.
--- NOTE | 2019-05-07 14:12 | Nephrology Progress Note ---
Assessment/Plan Problem List: (1) Hypercalcemia Assessment: improving (2) Septic shock (3) Acute kidney injury (4) Acute respiratory failure (5) Dehydration (6) Anemia Assessment Acute renal failure Dehydration / HyperNatremia / HyperCalcemia Septic Shock Respiratory failure / COPD NSTEMI DM PEG Schizophrenia Anemia Plan Aredia 90 mg IV and Nasal Calcitonin correct lytes prn Lasix trial Midodrine IV fluid change to 1/2 NS K and Phos and Mag supplement as needed monitor renal parameters and Calcium urine studies anemia au avoid Nephrotoxics Subjective ROS Limited/Unobtainable: Yes Objective Objective Last 24 Hour Vital Signs Date Time Temp Pulse Resp B/P (MAP) Pulse Ox O2 Delivery O2 Flow Rate FiO2 05/07/19 13:29 58 16 30 05/07/19 13:00 63 16 118/44 (68) 100 05/07/19 12:30 116/39 05/07/19 12:00 72 05/07/19 12:00 Mechanical Ventilator 05/07/19 12:00 99.2 73 18 116/39 (64) 98 05/07/19 12:00 30 05/07/19 11:19 71 16 30 05/07/19 11:00 69 15 107/40 (62) 99 05/07/19 10:00 67 16 105/68 (80) 99 05/07/19 09:26 72 16 30 05/07/19 09:00 69 16 105/38 (60) 100 05/07/19 08:00 98.9 66 16 98/45 (62) 100 05/07/19 08:00 Mechanical Ventilator 05/07/19 08:00 64 05/07/19 08:00 30 05/07/19 07:13 74 17 30 05/07/19 07:00 69 15 98/48 (65) 99 05/07/19 06:00 63 16 105/39 (61) 99 05/07/19 05:21 65 16 30 05/07/19 05:00 66 16 100/47 (64) 98 05/07/19 04:00 66 05/07/19 04:00 30 05/07/19 04:00 98.7 71 17 107/42 (63) 97 05/07/19 04:00 Mechanical Ventilator 05/07/19 03:11 69 16 30 05/07/19 03:00 61 16 105/45 (65) 97 05/07/19 02:00 66 16 103/38 (59) 98 05/07/19 01:59 67 16 30 05/07/19 01:00 62 16 106/50 (68) 98 05/07/19 00:00 61 05/07/19 00:00 98.8 61 16 104/41 (62) 98 05/07/19 00:00 Mechanical Ventilator 05/06/19 23:20 68 18 30 05/06/19 23:00 62 16 110/41 (64) 99 05/06/19 22:00 62 16 101/38 (59) 99 05/06/19 21:26 64 19 30 05/06/19 21:00 59 16 114/39 (64) 99 05/06/19 20:00 30 05/06/19 20:00 59 05/06/19 20:00 Mechanical Ventilator 05/06/19 20:00 98.7 59 16 99/41 (60) 98 05/06/19 19:09 69 16 30 05/06/19 19:00 60 16 104/50 (68) 100 05/06/19 18:00 66 16 100/42 (61) 100 05/06/19 17:29 67 16 30 05/06/19 17:00 63 16 103/44 (63) 97 05/06/19 16:00 30 05/06/19 16:00 Mechanical Ventilator 05/06/19 16:00 62 05/06/19 16:00 98.8 66 17 100/78 (85) 100 05/06/19 15:29 65 21 30 05/06/19 15:00 67 16 114/45 (68) 97 Intake and Output 05/06/19 05/07/19 19:00 07:00 Intake Total 1150 ml 810 ml Output Total 640 ml 755 ml Balance 510 ml 55 ml IV Total 820 ml 550 ml Tube Feeding 330 ml 200 ml Other 60 ml Output Urine Total 640 ml 755 ml # Bowel Movements 4 1 Laboratory Tests 05/07/19 05:00: White Blood Count 7.1, Red Blood Count 3.18L, Hemoglobin 9.3L, Hematocrit 28.1L , Mean Corpuscular Volume 88, Mean Corpuscular Hemoglobin 29.2, Mean Corpuscular Hemoglobin Concent 33.0, Red Cell Distribution Width 15.9H, Platelet Count 151, Mean Platelet Volume 7.1, Neutrophils (%) (Auto) 78.4H, Lymphocytes (%) (Auto) 14.2L, Monocytes (%) (Auto) 4.9, Eosinophils (%) (Auto) 1.9, Basophils (%) (Auto) 0.6, Sodium Level 139, Potassium Level 4.2, Chloride Level 110H, Carbon Dioxide Level 21, Anion Gap 8, Blood Urea Nitrogen 28H, Creatinine 1.1, Estimat Glomerular Filtration Rate , Glucose Level 113H, Calcium Level 9.2, Phosphorus Level 2.6, Magnesium Level 2.1, Total Bilirubin 0.7, Aspartate Amino Transf (AST/SGOT) 26, Alanine Aminotransferase (ALT/SGPT) 54, Alkaline Phosphatase 282H, C-Reactive Protein, Quantitative 10.1H, Pro-B- Type Natriuretic Peptide 947H, Total Protein 4.3L, Albumin 1.5L, Globulin 2.8, Albumin/Globulin Ratio 0.5L Height (Feet): 5 Height (Inches): 7.00 Weight (Pounds): 118 General Appearance: no apparent distress EENT: other - vented Cardiovascular: normal rate Respiratory/Chest: decreased breath sounds Abdomen: distended Fox Ho MD May 07, 2019 14:12
--- NOTE | 2019-05-07 14:40 | NUR ---
NURSE NOTES: Pt is tolerating GT feeding well with zero residual. Feeding rate was increased to 30ml/hour. VS remain stable.
--- NOTE | 2019-05-07 16:00 | NUR ---
NURSE NOTES: Pt was seen by Dr Lai. No new orders were received. Pt is resting with stable VS and in no apparent distress. surveillance monitor displays NSR with heart rate in the low 60's. IV fluid is maintained 0.45NS at 50ml/hour per MD order. Hilario continues to drain clear/yellow urine. GT feeding is currently at 30ml/hour; residual is zero.
--- NOTE | 2019-05-07 16:46 | Cardiology Progress Note ---
Assessment/Plan Assessment/Plan failed weaning this morning, continue ventilator support Subjective Subjective intubated, unresponsive Objective Last 24 Hour Vital Signs Date Time Temp Pulse Resp B/P (MAP) Pulse Ox O2 Delivery O2 Flow Rate FiO2 05/07/19 16:00 61 16 120/50 (73) 100 05/07/19 16:00 Mechanical Ventilator 05/07/19 16:00 30 05/07/19 16:00 59 05/07/19 15:29 54 16 30 05/07/19 15:00 63 16 112/44 (66) 99 05/07/19 14:00 61 16 128/47 (74) 99 05/07/19 13:29 58 16 30 05/07/19 13:00 63 16 118/44 (68) 100 05/07/19 12:30 116/39 05/07/19 12:00 72 05/07/19 12:00 Mechanical Ventilator 05/07/19 12:00 99.2 73 18 116/39 (64) 98 05/07/19 12:00 30 05/07/19 11:19 71 16 30 05/07/19 11:00 69 15 107/40 (62) 99 05/07/19 10:00 67 16 105/68 (80) 99 05/07/19 09:26 72 16 30 05/07/19 09:00 69 16 105/38 (60) 100 05/07/19 08:00 98.9 66 16 98/45 (62) 100 05/07/19 08:00 Mechanical Ventilator 05/07/19 08:00 64 05/07/19 08:00 30 05/07/19 07:13 74 17 30 05/07/19 07:00 69 15 98/48 (65) 99 05/07/19 06:00 63 16 105/39 (61) 99 05/07/19 05:21 65 16 30 05/07/19 05:00 66 16 100/47 (64) 98 05/07/19 04:00 66 05/07/19 04:00 30 05/07/19 04:00 98.7 71 17 107/42 (63) 97 05/07/19 04:00 Mechanical Ventilator 05/07/19 03:11 69 16 30 05/07/19 03:00 61 16 105/45 (65) 97 05/07/19 02:00 66 16 103/38 (59) 98 05/07/19 01:59 67 16 30 05/07/19 01:00 62 16 106/50 (68) 98 05/07/19 00:00 61 05/07/19 00:00 98.8 61 16 104/41 (62) 98 05/07/19 00:00 Mechanical Ventilator 05/06/19 23:20 68 18 30 05/06/19 23:00 62 16 110/41 (64) 99 05/06/19 22:00 62 16 101/38 (59) 99 05/06/19 21:26 64 19 30 05/06/19 21:00 59 16 114/39 (64) 99 05/06/19 20:00 30 05/06/19 20:00 59 05/06/19 20:00 Mechanical Ventilator 05/06/19 20:00 98.7 59 16 99/41 (60) 98 05/06/19 19:09 69 16 30 05/06/19 19:00 60 16 104/50 (68) 100 05/06/19 18:00 66 16 100/42 (61) 100 05/06/19 17:29 67 16 30 05/06/19 17:00 63 16 103/44 (63) 97 Intake and Output 05/06/19 05/07/19 18:59 06:59 Intake Total 1085 ml 820 ml Output Total 640 ml 800 ml Balance 445 ml 20 ml IV Total 770 ml 550 ml Tube Feeding 315 ml 210 ml Other 60 ml Output Urine Total 640 ml 800 ml # Bowel Movements 4 1 Laboratory Tests Test 05/07/19 05:00 White Blood Count 7.1 K/UL (4.8-10.8) Red Blood Count 3.18 M/UL (4.20-5.40) L Hemoglobin 9.3 G/DL (12.0-16.0) L Hematocrit 28.1 % (37.0-47.0) L Mean Corpuscular Volume 88 FL (80-99) Mean Corpuscular Hemoglobin 29.2 PG (27.0-31.0) Mean Corpuscular Hemoglobin Concent 33.0 G/DL (32.0-36.0) Red Cell Distribution Width 15.9 % (11.6-14.8) H Platelet Count 151 K/UL (150-450) Mean Platelet Volume 7.1 FL (6.5-10.1) Neutrophils (%) (Auto) 78.4 % (45.0-75.0) H Lymphocytes (%) (Auto) 14.2 % (20.0-45.0) L Monocytes (%) (Auto) 4.9 % (1.0-10.0) Eosinophils (%) (Auto) 1.9 % (0.0-3.0) Basophils (%) (Auto) 0.6 % (0.0-2.0) Sodium Level 139 MMOL/L (136-145) Potassium Level 4.2 MMOL/L (3.5-5.1) Chloride Level 110 MMOL/L (98-107) H Carbon Dioxide Level 21 MMOL/L (21-32) Anion Gap 8 mmol/L (5-15) Blood Urea Nitrogen 28 mg/dL (7-18) H Creatinine 1.1 MG/DL (0.55-1.30) Estimat Glomerular Filtration Rate mL/min (>60) Glucose Level 113 MG/DL (74-106) H Calcium Level 9.2 MG/DL (8.5-10.1) Phosphorus Level 2.6 MG/DL (2.5-4.9) Magnesium Level 2.1 MG/DL (1.8-2.4) Total Bilirubin 0.7 MG/DL (0.2-1.0) Aspartate Amino Transf (AST/SGOT) 26 U/L (15-37) Alanine Aminotransferase (ALT/SGPT) 54 U/L (12-78) Alkaline Phosphatase 282 U/L (46-116) H C-Reactive Protein, Quantitative 10.1 mg/dL (0.00-0.90) H Pro-B-Type Natriuretic Peptide 947 pg/mL (0-125) H Total Protein 4.3 G/DL (6.4-8.2) L Albumin 1.5 G/DL (3.4-5.0) L Globulin 2.8 g/dL Albumin/Globulin Ratio 0.5 (1.0-2.7) L Mónica Bacon MD May 07, 2019 16:46
--- NOTE | 2019-05-07 18:13 | NUR ---
NURSE NOTES: Pt had BM x1, loose/pasty consistency. Pt was cleaned, wound dressings were changed. Oral care was done and pt suctioned. Pt was repositioned with bilateral lower extremities elevated on pillows. BG is within range 105. VS remain stable.
--- NOTE | 2019-05-07 19:02 | NUR ---
NURSE NOTES: Endorsement received from Montserrat Snider RN. Sinus rhythm on the monitor. Patient opens eyes spontaneously. Withdraws to pain. Intubated with ET 7.5, 22 lipline. AC 16, 500, PEEP 5, 30% FiO2. Left upper arm PICC. On 06/29 NS 50 ml/hr. GT patent and intact. Receiving Glucerna 1.2 30ml/hr with goal of 50 ml/hr. No residual. Hilario catheter in place, draining to urimeter per gravity. On P200 mattress. Head of bed elevated. Bed locked and in low position. Bed alarm on. Call light within visible reach.
--- NOTE | 2019-05-07 19:10 | NUR ---
HAND-OFF: Report given to Angie DUNN. VS stable. Endorsed plan of care.
[2019-05-07] MEDS: Dyna-Hex 2% Top Sol 2oz TOPIC SCH (19:54)
--- NOTE | 2019-05-07 21:00 | NUR ---
NURSE NOTES: Patient opens eyes, drowsy. Suctioned and repositioned and repositioned.
[2019-05-08] VITALS (25 sets, daily range): BP systolic 95–138; BP diastolic 33–57
--- NOTE | 2019-05-08 | NUR ---
NURSE NOTES: Sinus rhythm on the monitor. Appears comfortable. No sign of pain. Afebrile. Noted with 220ml residual from the GT. Held at this time. Head of bed kept comfortable.
--- NOTE | 2019-05-08 02:00 | NUR ---
NURSE NOTES: Patient asleep. Repositioned. No shortness of breath. Sinus rhythm on the monitor
--- NOTE | 2019-05-08 04:00 | NUR ---
NURSE NOTES: Bed bath, oral care, change of linens done. No residual frm GT,feeding resumed
[2019-05-08 05:25] LABS: BASOPHILS % (AUTO) 0.6 % (0.0-2.0); EOSINOPHILS % (AUTO) 2.5 % (0.0-3.0); HEMATOCRIT 28.8 % (37.0-47.0); HEMOGLOBIN 9.5 G/DL (12.0-16.0); LYMPHOCYTES % (AUTO) 18.7 % (20.0-45.0); MEAN CORPUSCULAR VOLUME 88 FL (80-99); NEUTROPHILS % (AUTO) 74.2 % (45.0-75.0); PLATELET COUNT 196 K/UL (150-450); RED BLOOD COUNT 3.27 M/UL (4.20-5.40); RED CELL DISTRIBUTION WIDTH 15.7 % (11.6-14.8); WHITE BLOOD COUNT 7.6 K/UL (4.8-10.8)
[2019-05-08 05:37] LABS: PHOSPHORUS 2.5 MG/DL (2.5-4.9)
[2019-05-08 05:39] LABS: ALANINE AMINOTRANSFERASE 63 U/L (12-78); ALBUMIN 1.4 G/DL (3.4-5.0); ALBUMIN/GLOBULIN RATIO 0.5 (1.0-2.7); ALKALINE PHOSPHATASE 290 U/L (46-116); ANION GAP 5 mmol/L (5-15); ASPARTATE AMINO TRANSFERASE 44 U/L (15-37); BILIRUBIN,TOTAL 0.5 MG/DL (0.2-1.0); BLOOD UREA NITROGEN 33 mg/dL (7-18); CALCIUM 8.6 MG/DL (8.5-10.1); CARBON DIOXIDE 20 MMOL/L (21-32); CHLORIDE 110 MMOL/L (98-107); CREATININE 1.1 MG/DL (0.55-1.30); POTASSIUM 4.4 MMOL/L (3.5-5.1); SODIUM 135 MMOL/L (136-145)
--- NOTE | 2019-05-08 06:00 | NUR ---
NURSE NOTES: Blood sugar checked, covered as per sliding scale.
[2019-05-08] MEDS: Erythromycin Ethylsuccinate 200mg/5ml Susp GT SCH ×3 (06:10→21:30)
[2019-05-08] MEDS: Meropenem 1 GM in NS 55 ML IVPB SCH ×3 (06:10→21:30)
[2019-05-08] MEDS: NovoLOG Insulin Flexpen SUBQ SCH ×5 (06:11→23:18)
--- NOTE | 2019-05-08 07:18 | NUR ---
HAND-OFF: Report given to Saskia Galvez RN.
--- NOTE | 2019-05-08 07:19 | NUR ---
NURSE NOTES: Received patient from MONA Adams. Patient opens eyes spontaneously and follows movement but does not follow commands. Patient moves left arm and can move legs up toward body. Patient does not attempt to communicate. Patient intubated with ET tube 7.5 with 22cm at the lip line. Patient on ventilator setting AC 16, tidal volume 500, FiO2 30%, and PEEP 5. Patient tolerating setting with no sign of acute distress with RR of 16. Patient not tolerating weaning for the past few days. patient has gastrostomy tube that is patent, asymptomatic, and running glucerna 1.2 at 30mL/hr at this time with goal of 50mL/hr. Reported that patient has high residual with rate of 50mL/hr. No residual noted at this time. Will increase feeding slowly as tolerated. Dormitory Maid recommended change of feeding to vital AF at 45mL/hr. Will ask GI MD if the change would be appropriate. Will follow up. Patient has kwon for urine retention that is patent, asymptomatic, and draining straw yellow urine at this time. Patient has right upper arm PICC that is patent, asymptomatic and running 0.45% NS at 50mL/hr at this time. Patient bed in low position with bed alarm on and call light in reach at this time. Patient repositioned and oral care performed at this time.
--- NOTE | 2019-05-08 08:33 | NUR ---
NURSE NOTES: Left telephone message for Dr Lai regarding ABG result. Awaiting call back.
[2019-05-08] MEDS: Pantoprazole Inj IV SCH ×2 (08:56→20:55)
[2019-05-08] MEDS: Heparin 5000 units/ml inj SUBQ SCH ×2 (08:57→20:56)
[2019-05-08] MEDS ORDERED: Sterile Water Irrig 1000ml IRRIG ONE (09:04)
[2019-05-08] MEDS ORDERED: NS 275ml ONE ×2 (09:04→09:07)
[2019-05-08] MEDS ORDERED: Tubing IV Secondary IV ONE (09:07)
[2019-05-08] MEDS ORDERED: 1/2 NS 1000ml IV ONE (09:07)
--- NOTE | 2019-05-08 09:35 | Nephrology Progress Note ---
Assessment/Plan Problem List: (1) Hypercalcemia Assessment: improving (2) Septic shock (3) Acute kidney injury (4) Acute respiratory failure (5) Dehydration (6) Anemia Assessment Acute renal failure Dehydration / HyperNatremia / HyperCalcemia Septic Shock Respiratory failure / COPD NSTEMI DM PEG Schizophrenia Anemia Plan Aredia 90 mg IV and Nasal Calcitonin correct lytes prn Lasix trial Midodrine IV fluid change to 1/2 NS K and Phos and Mag supplement as needed monitor renal parameters and Calcium urine studies anemia au avoid Nephrotoxics Subjective ROS Limited/Unobtainable: Yes Objective Objective Last 24 Hour Vital Signs Date Time Temp Pulse Resp B/P (MAP) Pulse Ox O2 Delivery O2 Flow Rate FiO2 05/08/19 07:24 70 16 30 05/08/19 07:00 65 16 98/39 (58) 100 05/08/19 06:00 70 18 97/40 (59) 100 05/08/19 05:20 67 16 30 05/08/19 05:00 68 16 107/57 (74) 100 05/08/19 04:00 30 05/08/19 04:00 98.9 70 17 111/46 (67) 98 05/08/19 04:00 60 05/08/19 04:00 Mechanical Ventilator 05/08/19 03:06 66 16 30 05/08/19 03:00 67 16 119/47 (71) 100 05/08/19 02:00 60 16 124/45 (71) 100 05/08/19 01:16 61 16 30 05/08/19 01:00 63 16 95/40 (58) 98 05/08/19 00:00 Mechanical Ventilator 05/08/19 00:00 60 05/08/19 00:00 98.7 61 16 109/44 (65) 99 05/08/19 00:00 30 05/07/19 23:07 62 16 30 05/07/19 23:00 61 16 119/43 (68) 99 05/07/19 22:00 57 16 106/43 (64) 99 05/07/19 21:11 56 16 30 05/07/19 21:00 61 16 111/42 (65) 100 05/07/19 20:00 59 05/07/19 20:00 98.9 62 16 115/43 (67) 99 05/07/19 20:00 30 05/07/19 20:00 Mechanical Ventilator 05/07/19 19:12 57 16 30 05/07/19 19:00 61 16 117/48 (71) 99 05/07/19 18:00 62 16 115/42 (66) 99 05/07/19 17:08 61 17 30 05/07/19 17:00 59 16 114/53 (73) 98 05/07/19 16:00 99.1 61 16 120/50 (73) 100 05/07/19 16:00 Mechanical Ventilator 05/07/19 16:00 30 05/07/19 16:00 59 05/07/19 15:29 54 16 30 05/07/19 15:00 63 16 112/44 (66) 99 05/07/19 14:00 61 16 128/47 (74) 99 05/07/19 13:29 58 16 30 05/07/19 13:00 63 16 118/44 (68) 100 05/07/19 12:30 116/39 05/07/19 12:00 72 05/07/19 12:00 Mechanical Ventilator 05/07/19 12:00 99.2 73 18 116/39 (64) 98 05/07/19 12:00 30 05/07/19 11:19 71 16 30 05/07/19 11:00 69 15 107/40 (62) 99 05/07/19 10:00 67 16 105/68 (80) 99 Intake and Output 05/07/19 05/08/19 19:00 07:00 Intake Total 1060 ml 995 ml Output Total 950 ml 700 ml Balance 110 ml 295 ml IV Total 610 ml 555 ml Tube Feeding 300 ml 240 ml Other 150 ml 200 ml Output Urine Total 950 ml 700 ml # Bowel Movements 4 1 Laboratory Tests 05/08/19 04:00: Arterial Blood pH 7.431, Arterial Blood Partial Pressure CO2 24.2*L, Arterial Blood Partial Pressure O2 113.9H, Arterial Blood HCO3 15.7*L, Arterial Blood Oxygen Saturation 97.7, Arterial Blood Base Excess -7.1L, Silas Test Positive 05/08/19 04:45: White Blood Count 7.6, Red Blood Count 3.27L, Hemoglobin 9.5L, Hematocrit 28.8L , Mean Corpuscular Volume 88, Mean Corpuscular Hemoglobin 29.0, Mean Corpuscular Hemoglobin Concent 32.9, Red Cell Distribution Width 15.7H, Platelet Count 196, Mean Platelet Volume 6.0L, Neutrophils (%) (Auto) 74.2, Lymphocytes (%) (Auto) 18.7L, Monocytes (%) (Auto) 4.0, Eosinophils (%) (Auto) 2.5, Basophils (%) (Auto) 0.6, Sodium Level 135L, Potassium Level 4.4, Chloride Level 110H, Carbon Dioxide Level 20L, Anion Gap 5, Blood Urea Nitrogen 33H, Creatinine 1.1, Estimat Glomerular Filtration Rate , Glucose Level 118H, Calcium Level 8.6, Phosphorus Level 2.5, Magnesium Level 1.9, Total Bilirubin 0.5, Aspartate Amino Transf (AST/SGOT) 44H, Alanine Aminotransferase (ALT/SGPT) 63, Alkaline Phosphatase 290H, Total Protein 4.3L, Albumin 1.4L, Globulin 2.9, Albumin/Globulin Ratio 0.5L Height (Feet): 5 Height (Inches): 7.00 Weight (Pounds): 120 General Appearance: no apparent distress EENT: other - vented Cardiovascular: normal rate Respiratory/Chest: decreased breath sounds Abdomen: soft Fox Ho MD May 08, 2019 09:35
--- NOTE | 2019-05-08 10:15 | General Progress Note ---
Assessment/Plan Problem List: (1) Acute respiratory failure ICD Codes: J96.00 - Acute respiratory failure, unspecified whether with hypoxia or hypercapnia SNOMED: 49981347 (2) Septic shock ICD Codes: A41.9 - Sepsis, unspecified organism; R65.21 - Severe sepsis with septic shock SNOMED: 01136984, 9374967 (3) Diabetes mellitus ICD Codes: E11.9 - Type 2 diabetes mellitus without complications SNOMED: 96626614 (4) Hypertension ICD Codes: I10 - Essential (primary) hypertension SNOMED: 43356452 (5) COPD (chronic obstructive pulmonary disease) ICD Codes: J44.9 - Chronic obstructive pulmonary disease, unspecified SNOMED: 44650751 (6) Anemia ICD Codes: D64.9 - Anemia, unspecified SNOMED: 365739282 (7) Schizophrenia ICD Codes: F20.9 - Schizophrenia, unspecified SNOMED: 14242247 Status: unchanged Assessment/Plan: vent abx bp bs control cbc bmp am Subjective Constitutional: Reports: weakness Allergies: Coded Allergies: No Known Allergies (Unverified , 05/01/19) All Systems: reviewed and negative except above Subjective intubated sedated in icu Objective Last 24 Hour Vital Signs Date Time Temp Pulse Resp B/P (MAP) Pulse Ox O2 Delivery O2 Flow Rate FiO2 05/08/19 10:03 72 35 30 05/08/19 09:57 78 20 30 30 05/08/19 07:24 70 16 30 05/08/19 07:00 65 16 98/39 (58) 100 05/08/19 06:00 70 18 97/40 (59) 100 05/08/19 05:20 67 16 30 05/08/19 05:00 68 16 107/57 (74) 100 05/08/19 04:00 30 05/08/19 04:00 98.9 70 17 111/46 (67) 98 05/08/19 04:00 60 05/08/19 04:00 Mechanical Ventilator 05/08/19 03:06 66 16 30 05/08/19 03:00 67 16 119/47 (71) 100 05/08/19 02:00 60 16 124/45 (71) 100 05/08/19 01:16 61 16 30 05/08/19 01:00 63 16 95/40 (58) 98 05/08/19 00:00 Mechanical Ventilator 05/08/19 00:00 60 05/08/19 00:00 98.7 61 16 109/44 (65) 99 05/08/19 00:00 30 05/07/19 23:07 62 16 30 05/07/19 23:00 61 16 119/43 (68) 99 05/07/19 22:00 57 16 106/43 (64) 99 05/07/19 21:11 56 16 30 05/07/19 21:00 61 16 111/42 (65) 100 05/07/19 20:00 59 05/07/19 20:00 98.9 62 16 115/43 (67) 99 05/07/19 20:00 30 05/07/19 20:00 Mechanical Ventilator 05/07/19 19:12 57 16 30 05/07/19 19:00 61 16 117/48 (71) 99 05/07/19 18:00 62 16 115/42 (66) 99 05/07/19 17:08 61 17 30 05/07/19 17:00 59 16 114/53 (73) 98 05/07/19 16:00 99.1 61 16 120/50 (73) 100 05/07/19 16:00 Mechanical Ventilator 05/07/19 16:00 30 05/07/19 16:00 59 05/07/19 15:29 54 16 30 05/07/19 15:00 63 16 112/44 (66) 99 05/07/19 14:00 61 16 128/47 (74) 99 05/07/19 13:29 58 16 30 05/07/19 13:00 63 16 118/44 (68) 100 05/07/19 12:30 116/39 05/07/19 12:00 72 05/07/19 12:00 Mechanical Ventilator 05/07/19 12:00 99.2 73 18 116/39 (64) 98 05/07/19 12:00 30 05/07/19 11:19 71 16 30 05/07/19 11:00 69 15 107/40 (62) 99 Intake and Output 05/07/19 05/08/19 19:00 07:00 Intake Total 1060 ml 995 ml Output Total 950 ml 700 ml Balance 110 ml 295 ml IV Total 610 ml 555 ml Tube Feeding 300 ml 240 ml Other 150 ml 200 ml Output Urine Total 950 ml 700 ml # Bowel Movements 4 1 Laboratory Tests 05/08/19 04:00: Arterial Blood pH 7.431, Arterial Blood Partial Pressure CO2 24.2*L, Arterial Blood Partial Pressure O2 113.9H, Arterial Blood HCO3 15.7*L, Arterial Blood Oxygen Saturation 97.7, Arterial Blood Base Excess -7.1L, Silas Test Positive 05/08/19 04:45: White Blood Count 7.6, Red Blood Count 3.27L, Hemoglobin 9.5L, Hematocrit 28.8L , Mean Corpuscular Volume 88, Mean Corpuscular Hemoglobin 29.0, Mean Corpuscular Hemoglobin Concent 32.9, Red Cell Distribution Width 15.7H, Platelet Count 196, Mean Platelet Volume 6.0L, Neutrophils (%) (Auto) 74.2, Lymphocytes (%) (Auto) 18.7L, Monocytes (%) (Auto) 4.0, Eosinophils (%) (Auto) 2.5, Basophils (%) (Auto) 0.6, Sodium Level 135L, Potassium Level 4.4, Chloride Level 110H, Carbon Dioxide Level 20L, Anion Gap 5, Blood Urea Nitrogen 33H, Creatinine 1.1, Estimat Glomerular Filtration Rate , Glucose Level 118H, Calcium Level 8.6, Phosphorus Level 2.5, Magnesium Level 1.9, Total Bilirubin 0.5, Aspartate Amino Transf (AST/SGOT) 44H, Alanine Aminotransferase (ALT/SGPT) 63, Alkaline Phosphatase 290H, Total Protein 4.3L, Albumin 1.4L, Globulin 2.9, Albumin/Globulin Ratio 0.5L Height (Feet): 5 Height (Inches): 7.00 Weight (Pounds): 120 General Appearance: lethargic EENT: normal ENT inspection Neck: normal alignment Cardiovascular: normal peripheral pulses, normal rate, regular rhythm Respiratory/Chest: chest wall non-tender, lungs clear, normal breath sounds Abdomen: normal bowel sounds, non tender, soft Extremities: normal inspection Edema: no edema noted Arm (L), no edema noted Arm (R), no edema noted Leg (L), no edema noted Leg (R), no edema noted Pedal (L), no edema noted Pedal (R), no edema noted Generalized Neurologic: motor weakness Skin: normal pigmentation, warm/dry Cosme Chong DO May 08, 2019 10:15
--- NOTE | 2019-05-08 10:30 | NUR ---
NURSE NOTES: Patient opens eyes but does not follow commands. Patient failed weaning trial. She lasted for only a few minutes on weaning trial. Dr Lai rounded on the patient. Dr Ho rounded on the patient. Dr Chong rounded on the patient. All MD placed own orders. Updates on patient condition over night given per request from physician. Patient remains stable on ventilator with RR of 16 at this time and no sign of acute distress. Blood pressure within normal limits at 109/40. Will continue to monitor.
--- NOTE | 2019-05-08 10:33 | Pulmonolgy Critical Care Note ---
Critical Care - Asmt/Plan Problems: (1) Septic shock (2) Acute respiratory failure (3) COPD (chronic obstructive pulmonary disease) (4) Hypernatremia (5) Acute kidney injury (6) Hypertension (7) Diabetes mellitus (8) Feeding by G-tube Respiratory: monitor respiratory rate, adjust FIO2, CXR Cardiac: continue to monitor HR/BP Renal: F/U I&O, keep IV fluid Infectious Disease: check cultures Gastrointestinal: continue feedings/current rate Endocrine: monitor blood sugar Hematologic: monitor H/H, transfuse if hgb<8.5 Neurologic: PRN Morphine, keep patient comfortable Affect: PRN ativan Prophylaxis: Heparin Time Spent (Minutes): 40 Notes Reviewed: home economist consumer service, cardio, renal Discussed with: nurses, consultants, child welfare caseworkermanager utility - Objective Last 24 Hour Vital Signs Date Time Temp Pulse Resp B/P (MAP) Pulse Ox O2 Delivery O2 Flow Rate FiO2 05/08/19 10:03 72 35 30 05/08/19 09:57 78 20 30 30 05/08/19 07:24 70 16 30 05/08/19 07:00 65 16 98/39 (58) 100 05/08/19 06:00 70 18 97/40 (59) 100 05/08/19 05:20 67 16 30 05/08/19 05:00 68 16 107/57 (74) 100 05/08/19 04:00 30 05/08/19 04:00 98.9 70 17 111/46 (67) 98 05/08/19 04:00 60 05/08/19 04:00 Mechanical Ventilator 05/08/19 03:06 66 16 30 05/08/19 03:00 67 16 119/47 (71) 100 05/08/19 02:00 60 16 124/45 (71) 100 05/08/19 01:16 61 16 30 05/08/19 01:00 63 16 95/40 (58) 98 05/08/19 00:00 Mechanical Ventilator 05/08/19 00:00 60 05/08/19 00:00 98.7 61 16 109/44 (65) 99 05/08/19 00:00 30 05/07/19 23:07 62 16 30 05/07/19 23:00 61 16 119/43 (68) 99 05/07/19 22:00 57 16 106/43 (64) 99 05/07/19 21:11 56 16 30 05/07/19 21:00 61 16 111/42 (65) 100 05/07/19 20:00 59 05/07/19 20:00 98.9 62 16 115/43 (67) 99 05/07/19 20:00 30 05/07/19 20:00 Mechanical Ventilator 05/07/19 19:12 57 16 30 05/07/19 19:00 61 16 117/48 (71) 99 05/07/19 18:00 62 16 115/42 (66) 99 05/07/19 17:08 61 17 30 05/07/19 17:00 59 16 114/53 (73) 98 05/07/19 16:00 99.1 61 16 120/50 (73) 100 05/07/19 16:00 Mechanical Ventilator 05/07/19 16:00 30 05/07/19 16:00 59 05/07/19 15:29 54 16 30 05/07/19 15:00 63 16 112/44 (66) 99 05/07/19 14:00 61 16 128/47 (74) 99 05/07/19 13:29 58 16 30 05/07/19 13:00 63 16 118/44 (68) 100 05/07/19 12:30 116/39 05/07/19 12:00 72 05/07/19 12:00 Mechanical Ventilator 05/07/19 12:00 99.2 73 18 116/39 (64) 98 05/07/19 12:00 30 05/07/19 11:19 71 16 30 05/07/19 11:00 69 15 107/40 (62) 99 Status: awake Condition: critical HEENT: atraumatic Heart: HR/BP stable, regular Abdomen: non-tender Extremities: edema Decubiti: location Accucheck: 117 Critical Care - Subjective Interval Events: late note for 05/07 FI02: 30 Vent Support Breath Rate: 16 Vent Support Mode: AC Vent Tidal Volume: 500 Sputum Amount: Small PEEP: 5.0 PIP: 22 Tube Feeding Amount: 30 I&O: Intake and Output 05/07/19 05/08/19 19:00 07:00 Intake Total 1060 ml 995 ml Output Total 950 ml 700 ml Balance 110 ml 295 ml IV Total 610 ml 555 ml Tube Feeding 300 ml 240 ml Other 150 ml 200 ml Output Urine Total 950 ml 700 ml # Bowel Movements 4 1 ET-Tube: 7.5 ET Position: 22 Yancy Lai MD May 08, 2019 10:33
--- NOTE | 2019-05-08 10:35 | Pulmonolgy Critical Care Note ---
Critical Care - Asmt/Plan Problems: (1) Septic shock (2) Acute respiratory failure (3) COPD (chronic obstructive pulmonary disease) (4) Hypernatremia (5) Acute kidney injury (6) Hypertension (7) Diabetes mellitus (8) Feeding by G-tube Respiratory: monitor respiratory rate, adjust FIO2, CXR Cardiac: continue to monitor HR/BP Renal: F/U I&O, keep IV fluid, check electrolytes Infectious Disease: check cultures, continue antibiotics Gastrointestinal: continue feedings/current rate Endocrine: monitor blood sugar, check TSH Hematologic: monitor H/H Neurologic: PRN Ativan Affect: PRN ativan Prophylaxis: Protonix Notes Reviewed: cardio, renal Discussed with: nurses, consultants, pillowcase folderconference services manager - Objective Last 24 Hour Vital Signs Date Time Temp Pulse Resp B/P (MAP) Pulse Ox O2 Delivery O2 Flow Rate FiO2 05/08/19 10:03 72 35 30 05/08/19 09:57 78 20 30 30 05/08/19 07:24 70 16 30 05/08/19 07:00 65 16 98/39 (58) 100 05/08/19 06:00 70 18 97/40 (59) 100 05/08/19 05:20 67 16 30 05/08/19 05:00 68 16 107/57 (74) 100 05/08/19 04:00 30 05/08/19 04:00 98.9 70 17 111/46 (67) 98 05/08/19 04:00 60 05/08/19 04:00 Mechanical Ventilator 05/08/19 03:06 66 16 30 05/08/19 03:00 67 16 119/47 (71) 100 05/08/19 02:00 60 16 124/45 (71) 100 05/08/19 01:16 61 16 30 05/08/19 01:00 63 16 95/40 (58) 98 05/08/19 00:00 Mechanical Ventilator 05/08/19 00:00 60 05/08/19 00:00 98.7 61 16 109/44 (65) 99 05/08/19 00:00 30 05/07/19 23:07 62 16 30 05/07/19 23:00 61 16 119/43 (68) 99 05/07/19 22:00 57 16 106/43 (64) 99 05/07/19 21:11 56 16 30 05/07/19 21:00 61 16 111/42 (65) 100 05/07/19 20:00 59 05/07/19 20:00 98.9 62 16 115/43 (67) 99 05/07/19 20:00 30 05/07/19 20:00 Mechanical Ventilator 05/07/19 19:12 57 16 30 05/07/19 19:00 61 16 117/48 (71) 99 05/07/19 18:00 62 16 115/42 (66) 99 05/07/19 17:08 61 17 30 05/07/19 17:00 59 16 114/53 (73) 98 05/07/19 16:00 99.1 61 16 120/50 (73) 100 05/07/19 16:00 Mechanical Ventilator 05/07/19 16:00 30 05/07/19 16:00 59 05/07/19 15:29 54 16 30 05/07/19 15:00 63 16 112/44 (66) 99 05/07/19 14:00 61 16 128/47 (74) 99 05/07/19 13:29 58 16 30 05/07/19 13:00 63 16 118/44 (68) 100 05/07/19 12:30 116/39 05/07/19 12:00 72 05/07/19 12:00 Mechanical Ventilator 05/07/19 12:00 99.2 73 18 116/39 (64) 98 05/07/19 12:00 30 05/07/19 11:19 71 16 30 05/07/19 11:00 69 15 107/40 (62) 99 Status: awake Condition: critical HEENT: atraumatic Lungs: clear Heart: HR/BP stable, HR/BP unstable Abdomen: soft, non-tender, feeding tube Extremities: no C/C/E Accucheck: 117 Critical Care - Subjective ROS Limited/Unobtainable: No Condition: critical EKG Rhythm: Sinus Rhythm FI02: 30 Vent Support Breath Rate: 16 Vent Support Mode: AC Vent Tidal Volume: 500 Sputum Amount: Small PEEP: 5.0 PIP: 22 Tube Feeding Amount: 30 I&O: Intake and Output 05/07/19 05/08/19 19:00 07:00 Intake Total 1060 ml 995 ml Output Total 950 ml 700 ml Balance 110 ml 295 ml IV Total 610 ml 555 ml Tube Feeding 300 ml 240 ml Other 150 ml 200 ml Output Urine Total 950 ml 700 ml # Bowel Movements 4 1 CXR: ET in good position ET-Tube: 7.5 ET Position: 22 Labs: Laboratory Tests Test 05/08/19 04:00 05/08/19 04:45 Arterial Blood pH 7.431 (7.350-7.450) Arterial Blood Partial Pressure CO2 24.2 mmHg (35.0-45.0) *L Arterial Blood Partial Pressure O2 113.9 mmHg (75.0-100.0) H Arterial Blood HCO3 15.7 mmol/L (22.0-26.0) *L Arterial Blood Oxygen Saturation 97.7 % (95-100) Arterial Blood Base Excess -7.1 (-2-2) L Silas Test Positive White Blood Count 7.6 K/UL (4.8-10.8) Red Blood Count 3.27 M/UL (4.20-5.40) L Hemoglobin 9.5 G/DL (12.0-16.0) L Hematocrit 28.8 % (37.0-47.0) L Mean Corpuscular Volume 88 FL (80-99) Mean Corpuscular Hemoglobin 29.0 PG (27.0-31.0) Mean Corpuscular Hemoglobin Concent 32.9 G/DL (32.0-36.0) Red Cell Distribution Width 15.7 % (11.6-14.8) H Platelet Count 196 K/UL (150-450) Mean Platelet Volume 6.0 FL (6.5-10.1) L Neutrophils (%) (Auto) 74.2 % (45.0-75.0) Lymphocytes (%) (Auto) 18.7 % (20.0-45.0) L Monocytes (%) (Auto) 4.0 % (1.0-10.0) Eosinophils (%) (Auto) 2.5 % (0.0-3.0) Basophils (%) (Auto) 0.6 % (0.0-2.0) Sodium Level 135 MMOL/L (136-145) L Potassium Level 4.4 MMOL/L (3.5-5.1) Chloride Level 110 MMOL/L (98-107) H Carbon Dioxide Level 20 MMOL/L (21-32) L Anion Gap 5 mmol/L (5-15) Blood Urea Nitrogen 33 mg/dL (7-18) H Creatinine 1.1 MG/DL (0.55-1.30) Estimat Glomerular Filtration Rate mL/min (>60) Glucose Level 118 MG/DL (74-106) H Calcium Level 8.6 MG/DL (8.5-10.1) Phosphorus Level 2.5 MG/DL (2.5-4.9) Magnesium Level 1.9 MG/DL (1.8-2.4) Total Bilirubin 0.5 MG/DL (0.2-1.0) Aspartate Amino Transf (AST/SGOT) 44 U/L (15-37) H Alanine Aminotransferase (ALT/SGPT) 63 U/L (12-78) Alkaline Phosphatase 290 U/L (46-116) H Total Protein 4.3 G/DL (6.4-8.2) L Albumin 1.4 G/DL (3.4-5.0) L Globulin 2.9 g/dL Albumin/Globulin Ratio 0.5 (1.0-2.7) L Yancy Lai MD May 08, 2019 10:35
--- NOTE | 2019-05-08 11:42 | NUR ---
NURSE NOTES: Spoke with Mike Toro NP. Notified him that patient continues to have residual on Glucerna 1.2 at 30mL/hr. Told him of the animal nutrition teacher recommendation for vital AF at 45mL/hr. He reported that the patient should remain on the current tube feeding formula. Will continue to monitor.
--- NOTE | 2019-05-08 11:43 | GI Progress Note ---
Assessment/Plan Problems: (1) Septic shock ICD Codes: A41.9 - Sepsis, unspecified organism; R65.21 - Severe sepsis with septic shock SNOMED: 71110116, 1622243 (2) Feeding by G-tube ICD Codes: Z93.1 - Gastrostomy status SNOMED: 233574525, 930426217, 051439272 (3) Diabetes mellitus ICD Codes: E11.9 - Type 2 diabetes mellitus without complications SNOMED: 24514157 (4) Anemia ICD Codes: D64.9 - Anemia, unspecified SNOMED: 183066730 Status: unchanged Status Narrative Discussed with Dr. Lau. Assessment/Plan No plans for any GI procedures at this given time given the patient's elevated troponin level and hemodynamic instability. occult blood stool to evaluate for any GI bleed, negative Monitor H&H, PRN transfusions PPI GTFs Electrolyte correction, increase free water flushes for hypernatremia GT site care daily and as needed We will follow on a daily basis with additional recommendation add erythromycin for elevated residuals The patient was seen and examined at bedside and all new and available data was reviewed in the patients chart. I agree with the above findings, impression and plan. (Patient seen earlier today. Signature stamp does not reflect patient encounter time.). - Alfredo Lau MD Subjective Subjective limited Objective Last 24 Hour Vital Signs Date Time Temp Pulse Resp B/P (MAP) Pulse Ox O2 Delivery O2 Flow Rate FiO2 05/08/19 11:30 70 16 30 05/08/19 11:00 69 17 109/40 (63) 99 05/08/19 10:03 72 35 30 05/08/19 10:00 76 14 116/50 (72) 98 05/08/19 09:57 78 20 30 30 05/08/19 09:00 71 18 111/53 (72) 100 05/08/19 08:00 99.2 67 16 103/49 (67) 100 05/08/19 08:00 67 05/08/19 08:00 30 05/08/19 08:00 Mechanical Ventilator 05/08/19 08:00 67 05/08/19 07:24 70 16 30 05/08/19 07:00 65 16 98/39 (58) 100 05/08/19 06:00 70 18 97/40 (59) 100 05/08/19 05:20 67 16 30 05/08/19 05:00 68 16 107/57 (74) 100 05/08/19 04:00 30 05/08/19 04:00 98.9 70 17 111/46 (67) 98 05/08/19 04:00 60 05/08/19 04:00 Mechanical Ventilator 05/08/19 03:06 66 16 30 05/08/19 03:00 67 16 119/47 (71) 100 05/08/19 02:00 60 16 124/45 (71) 100 05/08/19 01:16 61 16 30 05/08/19 01:00 63 16 95/40 (58) 98 05/08/19 00:00 Mechanical Ventilator 05/08/19 00:00 60 05/08/19 00:00 98.7 61 16 109/44 (65) 99 05/08/19 00:00 30 05/07/19 23:07 62 16 30 05/07/19 23:00 61 16 119/43 (68) 99 05/07/19 22:00 57 16 106/43 (64) 99 05/07/19 21:11 56 16 30 05/07/19 21:00 61 16 111/42 (65) 100 05/07/19 20:00 59 05/07/19 20:00 98.9 62 16 115/43 (67) 99 05/07/19 20:00 30 05/07/19 20:00 Mechanical Ventilator 05/07/19 19:12 57 16 30 05/07/19 19:00 61 16 117/48 (71) 99 05/07/19 18:00 62 16 115/42 (66) 99 05/07/19 17:08 61 17 30 05/07/19 17:00 59 16 114/53 (73) 98 05/07/19 16:00 99.1 61 16 120/50 (73) 100 05/07/19 16:00 Mechanical Ventilator 05/07/19 16:00 30 05/07/19 16:00 59 05/07/19 15:29 54 16 30 05/07/19 15:00 63 16 112/44 (66) 99 05/07/19 14:00 61 16 128/47 (74) 99 05/07/19 13:29 58 16 30 05/07/19 13:00 63 16 118/44 (68) 100 05/07/19 12:30 116/39 05/07/19 12:00 72 05/07/19 12:00 Mechanical Ventilator 05/07/19 12:00 99.2 73 18 116/39 (64) 98 05/07/19 12:00 30 Intake and Output 05/07/19 05/08/19 19:00 07:00 Intake Total 1060 ml 995 ml Output Total 950 ml 700 ml Balance 110 ml 295 ml IV Total 610 ml 555 ml Tube Feeding 300 ml 240 ml Other 150 ml 200 ml Output Urine Total 950 ml 700 ml # Bowel Movements 4 1 Laboratory Tests Test 05/08/19 04:00 05/08/19 04:45 Arterial Blood pH 7.431 (7.350-7.450) Arterial Blood Partial Pressure CO2 24.2 mmHg (35.0-45.0) *L Arterial Blood Partial Pressure O2 113.9 mmHg (75.0-100.0) H Arterial Blood HCO3 15.7 mmol/L (22.0-26.0) *L Arterial Blood Oxygen Saturation 97.7 % (95-100) Arterial Blood Base Excess -7.1 (-2-2) L Silas Test Positive White Blood Count 7.6 K/UL (4.8-10.8) Red Blood Count 3.27 M/UL (4.20-5.40) L Hemoglobin 9.5 G/DL (12.0-16.0) L Hematocrit 28.8 % (37.0-47.0) L Mean Corpuscular Volume 88 FL (80-99) Mean Corpuscular Hemoglobin 29.0 PG (27.0-31.0) Mean Corpuscular Hemoglobin Concent 32.9 G/DL (32.0-36.0) Red Cell Distribution Width 15.7 % (11.6-14.8) H Platelet Count 196 K/UL (150-450) Mean Platelet Volume 6.0 FL (6.5-10.1) L Neutrophils (%) (Auto) 74.2 % (45.0-75.0) Lymphocytes (%) (Auto) 18.7 % (20.0-45.0) L Monocytes (%) (Auto) 4.0 % (1.0-10.0) Eosinophils (%) (Auto) 2.5 % (0.0-3.0) Basophils (%) (Auto) 0.6 % (0.0-2.0) Sodium Level 135 MMOL/L (136-145) L Potassium Level 4.4 MMOL/L (3.5-5.1) Chloride Level 110 MMOL/L (98-107) H Carbon Dioxide Level 20 MMOL/L (21-32) L Anion Gap 5 mmol/L (5-15) Blood Urea Nitrogen 33 mg/dL (7-18) H Creatinine 1.1 MG/DL (0.55-1.30) Estimat Glomerular Filtration Rate mL/min (>60) Glucose Level 118 MG/DL (74-106) H Calcium Level 8.6 MG/DL (8.5-10.1) Phosphorus Level 2.5 MG/DL (2.5-4.9) Magnesium Level 1.9 MG/DL (1.8-2.4) Total Bilirubin 0.5 MG/DL (0.2-1.0) Aspartate Amino Transf (AST/SGOT) 44 U/L (15-37) H Alanine Aminotransferase (ALT/SGPT) 63 U/L (12-78) Alkaline Phosphatase 290 U/L (46-116) H Total Protein 4.3 G/DL (6.4-8.2) L Albumin 1.4 G/DL (3.4-5.0) L Globulin 2.9 g/dL Albumin/Globulin Ratio 0.5 (1.0-2.7) L Height (Feet): 5 Height (Inches): 7.00 Weight (Pounds): 120 General Appearance: no apparent distress Cardiovascular: normal rate Respiratory/Chest: normal breath sounds, no respiratory distress Abdominal Exam: normal bowel sounds, non tender, soft Extremities: non-tender Bekah Toro [employer] May 08, 2019 11:43
--- NOTE | 2019-05-08 12:34 | NUR ---
NURSE NOTES: Patient opens eyes spontaneously but does not follow commands. Patient does not attempt to communicate. Patient remains intubated with ET tube 7.5 with 22cm at the lip line with ventilator setting AC 16, tidal volume 500, FiO2 30%, and PEEP 5. Patient tolerating setting with no sign of acute distress with RR of 16. Patient failed weaning trial this AM. ABG result reported to Dr Lai. No new orders received. Gastrostomy tube that is patent, asymptomatic, and running glucerna 1.2 at 30mL/hr with 10mL residual. Will increase feeding slowly as tolerated. Will follow up. Patient has kwon for urine retention that is patent, asymptomatic, and draining straw yellow urine at this time. Patient has right upper arm PICC that is patent, asymptomatic and running 0.45% NS at 50mL/hr at this time. Patient bed in low position with bed alarm on and call light in reach at this time. Patient repositioned and oral care performed at this time. Addendum: 05/08/19 at 1237 by Saskia Galvez RN 0.45% normal saline order discontinued at 0930. IV fluids removed and discarded.
--- NOTE | 2019-05-08 14:30 | NUR ---
NURSE NOTES: Patient continues to open eyes but does not follow commands. Patient seems to track but does not communicate. Patient showing no sign of acute distress. Patient remains on ventilator with unchanged setting. Vital signs stable. Will continue to monitor. Bed in low position with bed alarm on and call light in reach at this time. Patient repositioned at this time.
--- NOTE | 2019-05-08 15:15 | Progress Note ---
DATE: 05/08/2019 SUBJECTIVE: This is a 78-year-old female patient with respiratory failure, but she continues to have some mood lability and decline in cognition, worsened by stress of her medical illness. That is why, her attending has requested daily psychiatric consultation at this time as far as the patient's confusion, decline in cognition, mood lability. MENTAL STATUS EXAMINATION: This is a 78-year-old female patient. Appearance is disheveled. Attitude, irritable and agitated. Affect, guarded and restricted. Intellect poor. Mood, depressed and anxious. Motor activity, psychomotor agitation. Attention span is poor. Orientation x2. Speech is pressured. Thought process, disorganized and illogical. Insight and judgment is poor. DIAGNOSIS: Major depressive disorder, mild, recurrent with psychotic features, rule out dementia with psychosis. PLAN: Treat this patient with a medication regimen of Risperdal 0.25 mg per G-tube at bedtime p.r.n. anxiety and agitation, Ativan 0.5 mg every 6 hours p.r.n. anxiety and agitation as well. The patient will continue to be followed by Psychiatry throughout hospital course. Chart reviewed. Discussed with staff. 20 minutes of behavioral management provided. Kristen Rodgers M.D. DR: HARRIS JOB#: [id number] CC:
--- NOTE | 2019-05-08 16:00 | NUR ---
[employer] SK[employer] SI; RESP FAILURE ETT/VENT SUPPORT T. 99.4 HR 70 RR 17 B/P 114/54 PH 7.43 PCO2 24.2 PO2 113.9 HCO3 15.7 O2 SAT 97.7 AC 16 TV 500 FIO2 305 PEEP 5 IS: MEROPENEM IV PROTONIX IV ZYVOX ERYTHROMYCIN GT ICU STATUS
--- NOTE | 2019-05-08 16:05 | Consultation ---
History of Present Illness General Date patient seen: May 08, 2019 Chief Complaint: Dyspnea/Respdistress Referring physician: RAYMOND BERNABE Present Illness HPI I was asked by patient's physician on record to evaluate patient assist with care and management. This is a unfortunate 78-year-old female with multiple medical comorbidities who presented to [facility] and respiratory distress requiring intubation currently in the intensive care unit. Patient has been hospitalized for approximately 7 days thus far in the intensive care unit and per report presented with multiple decubitus ulcers and wounds requiring care and management. Patient with significant malnutrition failure to thrive as well. I was called to help assist in the care of this patient. Patient seen in the intensive care unit, patient evaluated, chart reviewed. Head to toe examination performed with nursing staff. Labs noted. Imaging as below. Allergies: Coded Allergies: No Known Allergies (Unverified , 05/01/19) Medication History Scheduled Ascorbic Acid* (Vitamin C*), 500 MG GT DAILY, (Reported) Bisacodyl* (Dulcolax*), 10 MG GT DAILY, (Reported) Docusate Sodium* (Colace*), 100 MG GT DAILY, (Reported) Ferrous Sulfate* (Ferrous Sulfate*), 325 MG GT DAILY, (Reported) Furosemide* (Lasix*), 40 MG GT DAILY, (Reported) Insulin Regular, Human* (Novolin R*), 0 SUBQ .SLIDING SCALE, (Reported) Multivitamin Liquid* (Multi-Delyn*), 5 ML GT DAILY, (Reported) Olanzapine* (Zyprexa*), 5 MG GT DAILY, (Reported) Pantoprazole* (Protonix*), 40 MG ORAL DAILY, (Reported) Prednisone* (Prednisone*), 40 MG GT BID, (Reported) Risperidone* (Risperdal*), 1 MG GT DAILY, (Reported) Zinc Sulfate (Zinc Sulfate*), 220 MG GT DAILY, (Reported) Scheduled PRN Acetaminophen* (Acetaminophen 325MG Tablet*), 650 MG GT Q4H PRN for Pain Scale ( 3-5), (Reported) Clonidine Hcl* (Catapres*), 0.1 MG ORAL EVERY 6 HOURS PRN for For High Blood Pressure, (Reported) Ipratropium/Albuterol Sulfate (DuoNeb 0.5-3(2.5)mg/3ml), 3 ML HHN EVERY 4 HOURS PRN for Shortness of Breath, (Reported) Magnesium Hydroxide* (Milk Of Magnesia*), Unknown Dose GT for Constipation, ( Reported) Miscellaneous Medications Glucagon HCl (Glucagon HCl), 1 MG IJ, (Reported) Sennosides (Senna), 8.6 MG GT, (Reported) Discontinued Medications Albuterol Sulfate (Albuterol Sulfate), 2.5 MG IH, (Reported) Discontinued Reason: Pt stopped taking med Ipratropium [place] 0.5MG/2.5ML (Ipratropium [place] 0.5MG/2.5ML), 0.5 MG HHN Q6H PRN for Shortness of Breath, (Reported) Discontinued Reason: Prescription changed Patient History Limited by: medical condition History Provided By: Medical Record, PMD Healthcare decision maker Jas Nicholson ([facility]) Resuscitation status Full Code Advanced Directive on File No Past Medical/Surgical History Past Medical/Surgical History: (1) Anemia (2) Hypercalcemia (3) COPD (chronic obstructive pulmonary disease) (4) Hypertension (5) Diabetes mellitus (6) Feeding by G-tube (7) Schizophrenia (8) Pulmonary congestion (9) Hypernatremia (10) Pneumonia (11) NSTEMI (non-ST elevated myocardial infarction) (12) Acute kidney injury (13) Acute respiratory failure (14) Septic shock (15) Dehydration Review of Systems ROS Narrative Cannot obtain given patient's current medical condition Physical Exam General Appearance: mild distress Lines, tubes and drains: central line HEENT: mucous membranes moist Neck: other - ET tube Respiratory/Chest: decreased breath sounds, on vent Cardiovascular/Chest: tachycardia Abdomen: soft, no organomegaly, no mass Extremities: other Skin Exam: warm/dry Neurologic: unresponsiveness Last 24 Hour Vital Signs Date Time Temp Pulse Resp B/P (MAP) Pulse Ox O2 Delivery O2 Flow Rate FiO2 05/08/19 15:05 71 16 30 05/08/19 15:00 69 17 114/57 (76) 99 05/08/19 14:00 70 17 118/46 (70) 99 05/08/19 13:40 72 22 30 05/08/19 13:00 68 16 114/43 (66) 98 05/08/19 12:26 111/45 05/08/19 12:00 99.4 70 17 111/45 (67) 99 05/08/19 12:00 30 05/08/19 12:00 Mechanical Ventilator 05/08/19 12:00 66 05/08/19 11:30 70 16 30 05/08/19 11:00 69 17 109/40 (63) 99 05/08/19 10:03 72 35 30 05/08/19 10:00 76 14 116/50 (72) 98 05/08/19 09:57 78 20 30 30 05/08/19 09:00 71 18 111/53 (72) 100 05/08/19 08:00 99.2 67 16 103/49 (67) 100 05/08/19 08:00 67 05/08/19 08:00 30 05/08/19 08:00 Mechanical Ventilator 05/08/19 08:00 67 05/08/19 07:24 70 16 30 05/08/19 07:00 65 16 98/39 (58) 100 05/08/19 06:00 70 18 97/40 (59) 100 05/08/19 05:20 67 16 30 05/08/19 05:00 68 16 107/57 (74) 100 05/08/19 04:00 30 05/08/19 04:00 98.9 70 17 111/46 (67) 98 05/08/19 04:00 60 05/08/19 04:00 Mechanical Ventilator 05/08/19 03:06 66 16 30 05/08/19 03:00 67 16 119/47 (71) 100 05/08/19 02:00 60 16 124/45 (71) 100 05/08/19 01:16 61 16 30 05/08/19 01:00 63 16 95/40 (58) 98 05/08/19 00:00 Mechanical Ventilator 05/08/19 00:00 60 05/08/19 00:00 98.7 61 16 109/44 (65) 99 05/08/19 00:00 30 05/07/19 23:07 62 16 30 05/07/19 23:00 61 16 119/43 (68) 99 05/07/19 22:00 57 16 106/43 (64) 99 05/07/19 21:11 56 16 30 05/07/19 21:00 61 16 111/42 (65) 100 05/07/19 20:00 59 05/07/19 20:00 98.9 62 16 115/43 (67) 99 05/07/19 20:00 30 05/07/19 20:00 Mechanical Ventilator 05/07/19 19:12 57 16 30 05/07/19 19:00 61 16 117/48 (71) 99 05/07/19 18:00 62 16 115/42 (66) 99 05/07/19 17:08 61 17 30 05/07/19 17:00 59 16 114/53 (73) 98 05/07/19 16:00 99.1 61 16 120/50 (73) 100 05/07/19 16:00 Mechanical Ventilator 05/07/19 16:00 30 05/07/19 16:00 59 Intake and Output 05/07/19 05/08/19 19:00 07:00 Intake Total 1060 ml 1100 ml Output Total 950 ml 700 ml Balance 110 ml 400 ml IV Total 610 ml 660 ml Tube Feeding 300 ml 240 ml Other 150 ml 200 ml Output Urine Total 950 ml 700 ml # Bowel Movements 4 1 Laboratory Tests Test 05/08/19 04:00 05/08/19 04:45 Arterial Blood pH 7.431 (7.350-7.450) Arterial Blood Partial Pressure CO2 24.2 mmHg (35.0-45.0) *L Arterial Blood Partial Pressure O2 113.9 mmHg (75.0-100.0) H Arterial Blood HCO3 15.7 mmol/L (22.0-26.0) *L Arterial Blood Oxygen Saturation 97.7 % (95-100) Arterial Blood Base Excess -7.1 (-2-2) L Silas Test Positive White Blood Count 7.6 K/UL (4.8-10.8) Red Blood Count 3.27 M/UL (4.20-5.40) L Hemoglobin 9.5 G/DL (12.0-16.0) L Hematocrit 28.8 % (37.0-47.0) L Mean Corpuscular Volume 88 FL (80-99) Mean Corpuscular Hemoglobin 29.0 PG (27.0-31.0) Mean Corpuscular Hemoglobin Concent 32.9 G/DL (32.0-36.0) Red Cell Distribution Width 15.7 % (11.6-14.8) H Platelet Count 196 K/UL (150-450) Mean Platelet Volume 6.0 FL (6.5-10.1) L Neutrophils (%) (Auto) 74.2 % (45.0-75.0) Lymphocytes (%) (Auto) 18.7 % (20.0-45.0) L Monocytes (%) (Auto) 4.0 % (1.0-10.0) Eosinophils (%) (Auto) 2.5 % (0.0-3.0) Basophils (%) (Auto) 0.6 % (0.0-2.0) Sodium Level 135 MMOL/L (136-145) L Potassium Level 4.4 MMOL/L (3.5-5.1) Chloride Level 110 MMOL/L (98-107) H Carbon Dioxide Level 20 MMOL/L (21-32) L Anion Gap 5 mmol/L (5-15) Blood Urea Nitrogen 33 mg/dL (7-18) H Creatinine 1.1 MG/DL (0.55-1.30) Estimat Glomerular Filtration Rate mL/min (>60) Glucose Level 118 MG/DL (74-106) H Calcium Level 8.6 MG/DL (8.5-10.1) Phosphorus Level 2.5 MG/DL (2.5-4.9) Magnesium Level 1.9 MG/DL (1.8-2.4) Total Bilirubin 0.5 MG/DL (0.2-1.0) Aspartate Amino Transf (AST/SGOT) 44 U/L (15-37) H Alanine Aminotransferase (ALT/SGPT) 63 U/L (12-78) Alkaline Phosphatase 290 U/L (46-116) H Total Protein 4.3 G/DL (6.4-8.2) L Albumin 1.4 G/DL (3.4-5.0) L Globulin 2.9 g/dL Albumin/Globulin Ratio 0.5 (1.0-2.7) L Height (Feet): 5 Height (Inches): 7.00 Weight (Pounds): 120 Medications Current Medications Medications (Trade) Dose Ordered Sig/Vane Route PRN Reason Start Time Stop Time Status Last Admin Dose Admin Acetaminophen (Tylenol) 650 mg Q4H PRN NG fever 05/04/19 09:30 05/31/19 12:44 05/04/19 10:00 Calcitonin [place] (Miacalcin) 1 sprays DAILY NASAL 05/04/19 09:00 06/03/19 08:59 05/08/19 08:56 Chlorhexidine Gluconate (Shanice-Hex 2%) 1 applic DAILY@2000 TOPIC 05/01/19 20:00 05/31/19 19:59 05/07/19 19:54 Dextrose (Dextrose 50%) 25 ml Q30M PRN IV Hypoglycemia 05/02/19 06:30 06/01/19 06:29 Dextrose (Dextrose 50%) 50 ml Q30M PRN IV Hypoglycemia 05/02/19 06:30 06/01/19 06:29 Erythromycin (Joey-Ped) 250 mg Q8HR GT 05/05/19 14:00 05/12/19 13:59 05/08/19 13:32 Heparin Sodium (Porcine) (Heparin 5000 units/ml) 5,000 units EVERY 12 HOURS SUBQ 05/01/19 21:00 05/31/19 20:59 05/08/19 08:57 Insulin Aspart (NovoLOG) EVERY 6 HOURS SUBQ 05/02/19 07:30 06/01/19 07:29 05/08/19 12:24 Linezolid (Zyvox) 600 mg EVERY 12 HOURS ORAL 05/04/19 21:00 05/09/19 20:59 05/08/19 08:56 Lorazepam (Ativan) 0.5 mg Q6H PRN NG For Anxiety 05/04/19 09:30 05/09/19 07:29 Meropenem 1 gm/ Sodium Chloride 55 ml @ 110 mls/hr Q8HR IVPB 05/05/19 22:00 05/10/19 21:59 05/08/19 13:32 Midodrine (Pro-Amatine) 5 mg THREE TIMES A DAY NG 05/06/19 13:00 06/04/19 12:59 05/08/19 13:32 Norepinephrine Bitartrate 4 mg/ Dextrose 254 ml @ 0 mls/hr Q24H IV 05/01/19 12:45 05/31/19 12:44 05/04/19 18:15 Ondansetron HCl (Zofran) 4 mg Q6H PRN IVP Nausea & Vomiting 05/01/19 12:45 05/31/19 12:44 Pantoprazole (Protonix) 40 mg Q12HR IV 05/01/19 21:00 06/01/19 08:59 05/08/19 08:56 Potassium Chloride (K-Dur) 20 meq TWICE A DAY NG 05/04/19 09:18 06/03/19 09:17 05/08/19 08:56 Risperidone (RisperDAL) 0.25 mg QHS PRN GT Agitation 05/02/19 07:30 06/01/19 07:29 Assessment/Plan Problem List: (1) Sacral decubitus ulcer, stage III Assessment & Plan: Patient presented on admission with multiple pressure injuries noted. Patient seen by team during admission and I was called on to evaluate patient Full Thickness Stage III Pressure injury sacrum. Base of wound 100% necrotic with red margins(L)2.5cm x (W)2.7cm with surrounding maroon and indurated borders (L)7.5cm x (W)8.5cm. Periwound soft and with edema. Maroon and indurated area noted to R buttocks. Non-blanching erythema noted to R trochanteric.(L)6.5cm x (W)7.5cm. Elongated wound noted to medial/posterior R thigh(L)0.6cm x (W)5.2cm. L heel boggy with non-blanching erythema. Non-Blanchable erythema R heel without fluctuance. Recommendations: Wash wounds daily with NS or soap/water Apply therahoney or hydrogel impregnated gauze to sacral wound, cover with foam dressing daily and prn saturation Will need to monitor for incontinence as she is having loose stools and need diligent care as can worsen wound Apply foam dressing to R hip, change q3 days bilateral heel foam dressings APM/SOILA Mattress overlay. Reposition at least every 2hours or as tolerated. Off-load heels with Pillow. nutritional optimization will follow with recs thank you ICD Codes: L89.153 - Pressure ulcer of sacral region, stage 3 SNOMED: 455476597, 383886702 (2) Malnutrition Assessment & Plan: DAILY ESTIMATED NEEDS: Needs based on Critical care, wounds; 48.6kg 22- 30 kcals/kg 6722-9339 total kcals 1.25-2 g protein/kg 61-97 g total protein 25-30 mL/kg 6284-8686 total fluid mLs NUTRITION DIAGNOSIS: 1) Increased kcal and pro needs r/t wound healing AEB pt adm w/ multiple wounds, including full thickness sacral wounds, refer to WC eval. 2) Swallowing difficulty r/t respiratory status AEB pt is intubated, Peg dep, TF at low rate for elev residuals. CURRENT TF:Glucerna 1.2 @50-> now @20ml/hr ENTERAL NUTRITION RECOMMENDATIONS: VITAL AF 1.2 @ 45mL/hr x 24 hrs to provide 1080mL, 1296kcal, 81g pro, 876mL free H2O With continued elev residuals, rec TF change to VITAL 1.2 w/ goal rate of 45ml/ hr. - Start @15ml/hr until tolerated w/ no to little residuals. Advance 10ml/hr q4-6 hrs to goal rate TOLERATED. - Flush per . HOB over 30 degrees ADDITIONAL RECOMMENDATIONS: 1) Per SNF: 107 lbs, 60 inches 2) When pt is stable, see TF recs above. 3) Wound care: Add TANYA BID + Vit C 250mg BID -> Hold Tanya BID until TF is better tolerated w/ low to no residuals 4) Monitor lytes-> replete as needed 5) With continued elevated blood glucose, rec long acting insulin Monitor BG w/ active TF order ICD Codes: E46 - Unspecified protein-calorie malnutrition SNOMED: 39322669 (3) Failure to thrive in adult ICD Codes: R62.7 - Adult failure to thrive SNOMED: 939992643 (4) Feeding by G-tube ICD Codes: Z93.1 - Gastrostomy status SNOMED: 453187359, 634605266, 729762956 (5) Septic shock Assessment & Plan: labs noted exam as above wean vent as tolerated nutritional optimization trend labs abx as per ID will follow with recs thank you ICD Codes: A41.9 - Sepsis, unspecified organism; R65.21 - Severe sepsis with septic shock SNOMED: 50963374, 1612242 (6) Dehydration ICD Codes: E86.0 - Dehydration SNOMED: 14063141, 1867772 Ralph Roth May 08, 2019 16:05
--- NOTE | 2019-05-08 16:13 | Diagnostic Imaging Report ---
Indication: Dyspnea Comparison: 05/05/2019 A single view chest radiograph was obtained. Findings: Interstitial opacities are prominent at both lung bases. Heart size is normal. Endotracheal tube and PICC line are stable. Heart size is stable. IMPRESSION: No change from the prior exam. Suspected mild basal atelectasis
--- NOTE | 2019-05-08 16:30 | NUR ---
NURSE NOTES: Patient mentation remains unchanged. Patient remains intubated with ET tube 7.5 with 22cm at the lip line with ventilator setting AC 16, tidal volume 500, FiO2 30%, and PEEP 5. Patient tolerating setting with no sign of acute distress with RR of 16. Gastrostomy tube that is patent, asymptomatic, and running Glucerna 1.2 at 30mL/hr with 30mL residual. Will increase feeding slowly as tolerated. Will follow up. Patient has kwon for urine retention that is patent, asymptomatic, and draining straw yellow urine at this time. Patient has right upper arm PICC that is patent, asymptomatic and saline locked at this time. Patient bed in low position with bed alarm on and call light in reach at this time. Patient repositioned and oral care performed at this time. Patient cleaned at this time. Diarrhea x 2 today. Will continue to monitor. Addendum: 05/08/19 at 1918 by Saskia Galvez RN Temp continues to be elevated at 99.2. Cooling measures applied.
--- NOTE | 2019-05-08 17:39 | Infectious Diseases Prog Note ---
Assessment/Plan Assessment/Plan Assessment/Recommendation: Tmax 104.2, SP New leukocytosis after steroid given, SP Lactate 3.4>1.6>2.4>3.3>3.8>1.0 UTI? 05/01 UA 10-15 WBC 05/01 UCx: MDR Klebsiella(R-imipenem, gent, cipro, nitrofurantoin, zosyn, bactrim. I-amikacin) PNA? 05/01 sputum cx: MRSA, Providencia(S-amikacin, cefepime, ceftazidime, cipro, erta, zosyn), normal resp magdalena 05/01 CXR: Right mainstem intubation. Suggest pulling the tube back about 3 cm. Atelectasis of the left lower lobe. Superimposed pneumonia or pleural effusion is not excluded. CHF suspected. 05/01 CXR: Endotracheal tube is 2 cm above the guille in good position. A left subclavian line is also present in good position of the tip projected over the SVC. Pulmonary edema again demonstrated. There is hazy opacity at the left lung base which is probably a pleural effusion. 05/02 CXR: Over one day, interval improvement of previously demonstrated left- sided pleural fluid and interstitial and airspace edema. Parenchymal disease is unchanged on the right. 05/03 CXR: Stable satisfactory positions of endotracheal tube, left arm PICC. Hazy opacities in the right mid and lower lung are probably unchanged. There is a small amount of hazy opacity at the left lung base persisting as well. The heart is normal in size. Allowing for technical differences, findings are overall unchanged r/o bacteremia 05/01 BCx: ngtd MRSA negative VRE negative CRE negative HTN COPD Schizophrenia DM G tube Parkinson CKD Protein calorie malnutrition Dementia Psychosis Gastritis Functional paraplegia Plan: Meropenem #4/5 Linezolid #4/5 / DC Cefepime #1 05/04 SP Colistin #1 05/04 DC Ertapenem, Amikacin, Vancomycin #3 05/01 SP Zosyn #1 steroid per pulm f/u bcx f/u ucx f/u sputum cx aspiration precaution ETT management skin care oral care C diff if diarrhea persists Thank you for this consult. [facility] will continue to follow the patient with you. Subjective Allergies: Coded Allergies: No Known Allergies (Unverified , 05/01/19) Subjective Afebrile. no pressors. FiO2 30%/5. failed weaning. Loose stool from erythromycin? Objective Vital Signs Last 24 Hour Vital Signs Date Time Temp Pulse Resp B/P (MAP) Pulse Ox O2 Delivery O2 Flow Rate FiO2 05/08/19 17:13 69 20 30 05/08/19 17:00 68 17 109/45 (66) 97 05/08/19 16:00 30 05/08/19 16:00 71 05/08/19 16:00 Mechanical Ventilator 05/08/19 16:00 99.2 68 18 138/51 (80) 100 05/08/19 15:05 71 16 30 05/08/19 15:00 69 17 114/57 (76) 99 05/08/19 14:00 70 17 118/46 (70) 99 05/08/19 13:40 72 22 30 05/08/19 13:00 68 16 114/43 (66) 98 05/08/19 12:26 111/45 05/08/19 12:00 99.4 70 17 111/45 (67) 99 05/08/19 12:00 30 05/08/19 12:00 Mechanical Ventilator 05/08/19 12:00 66 05/08/19 11:30 70 16 30 05/08/19 11:00 69 17 109/40 (63) 99 05/08/19 10:03 72 35 30 05/08/19 10:00 76 14 116/50 (72) 98 05/08/19 09:57 78 20 30 30 05/08/19 09:00 71 18 111/53 (72) 100 05/08/19 08:00 99.2 67 16 103/49 (67) 100 05/08/19 08:00 67 05/08/19 08:00 30 05/08/19 08:00 Mechanical Ventilator 05/08/19 08:00 67 05/08/19 07:24 70 16 30 05/08/19 07:00 65 16 98/39 (58) 100 05/08/19 06:00 70 18 97/40 (59) 100 05/08/19 05:20 67 16 30 05/08/19 05:00 68 16 107/57 (74) 100 05/08/19 04:00 30 05/08/19 04:00 98.9 70 17 111/46 (67) 98 05/08/19 04:00 60 05/08/19 04:00 Mechanical Ventilator 05/08/19 03:06 66 16 30 05/08/19 03:00 67 16 119/47 (71) 100 05/08/19 02:00 60 16 124/45 (71) 100 05/08/19 01:16 61 16 30 05/08/19 01:00 63 16 95/40 (58) 98 05/08/19 00:00 Mechanical Ventilator 05/08/19 00:00 60 05/08/19 00:00 98.7 61 16 109/44 (65) 99 05/08/19 00:00 30 05/07/19 23:07 62 16 30 05/07/19 23:00 61 16 119/43 (68) 99 05/07/19 22:00 57 16 106/43 (64) 99 05/07/19 21:11 56 16 30 05/07/19 21:00 61 16 111/42 (65) 100 05/07/19 20:00 59 05/07/19 20:00 98.9 62 16 115/43 (67) 99 05/07/19 20:00 30 05/07/19 20:00 Mechanical Ventilator 05/07/19 19:12 57 16 30 05/07/19 19:00 61 16 117/48 (71) 99 05/07/19 18:00 62 16 115/42 (66) 99 Height (Feet): 5 Height (Inches): 7.00 Weight (Pounds): 120 Objective VS: Tmax 104.2 Gen: NAD. twitching HEENT: ETT CV: RRR Resp: RRR. coarse. no wheezes Abd: soft. nondistended. normoactive Bs+ Neuro: not awake Laboratory Tests Test 05/08/19 04:00 05/08/19 04:45 Arterial Blood pH 7.431 (7.350-7.450) Arterial Blood Partial Pressure CO2 24.2 mmHg (35.0-45.0) *L Arterial Blood Partial Pressure O2 113.9 mmHg (75.0-100.0) H Arterial Blood HCO3 15.7 mmol/L (22.0-26.0) *L Arterial Blood Oxygen Saturation 97.7 % (95-100) Arterial Blood Base Excess -7.1 (-2-2) L Silas Test Positive White Blood Count 7.6 K/UL (4.8-10.8) Red Blood Count 3.27 M/UL (4.20-5.40) L Hemoglobin 9.5 G/DL (12.0-16.0) L Hematocrit 28.8 % (37.0-47.0) L Mean Corpuscular Volume 88 FL (80-99) Mean Corpuscular Hemoglobin 29.0 PG (27.0-31.0) Mean Corpuscular Hemoglobin Concent 32.9 G/DL (32.0-36.0) Red Cell Distribution Width 15.7 % (11.6-14.8) H Platelet Count 196 K/UL (150-450) Mean Platelet Volume 6.0 FL (6.5-10.1) L Neutrophils (%) (Auto) 74.2 % (45.0-75.0) Lymphocytes (%) (Auto) 18.7 % (20.0-45.0) L Monocytes (%) (Auto) 4.0 % (1.0-10.0) Eosinophils (%) (Auto) 2.5 % (0.0-3.0) Basophils (%) (Auto) 0.6 % (0.0-2.0) Sodium Level 135 MMOL/L (136-145) L Potassium Level 4.4 MMOL/L (3.5-5.1) Chloride Level 110 MMOL/L (98-107) H Carbon Dioxide Level 20 MMOL/L (21-32) L Anion Gap 5 mmol/L (5-15) Blood Urea Nitrogen 33 mg/dL (7-18) H Creatinine 1.1 MG/DL (0.55-1.30) Estimat Glomerular Filtration Rate mL/min (>60) Glucose Level 118 MG/DL (74-106) H Calcium Level 8.6 MG/DL (8.5-10.1) Phosphorus Level 2.5 MG/DL (2.5-4.9) Magnesium Level 1.9 MG/DL (1.8-2.4) Total Bilirubin 0.5 MG/DL (0.2-1.0) Aspartate Amino Transf (AST/SGOT) 44 U/L (15-37) H Alanine Aminotransferase (ALT/SGPT) 63 U/L (12-78) Alkaline Phosphatase 290 U/L (46-116) H Total Protein 4.3 G/DL (6.4-8.2) L Albumin 1.4 G/DL (3.4-5.0) L Globulin 2.9 g/dL Albumin/Globulin Ratio 0.5 (1.0-2.7) L Current Medications Medications (Trade) Dose Ordered Sig/Vane Route PRN Reason Start Time Stop Time Status Last Admin Dose Admin Acetaminophen (Tylenol) 650 mg Q4H PRN NG fever 05/04/19 09:30 05/31/19 12:44 05/04/19 10:00 Calcitonin Paxton (Miacalcin) 1 sprays DAILY NASAL 05/04/19 09:00 06/03/19 08:59 05/08/19 08:56 Chlorhexidine Gluconate (Shanice-Hex 2%) 1 applic DAILY@2000 TOPIC 05/01/19 20:00 05/31/19 19:59 05/07/19 19:54 Dextrose (Dextrose 50%) 25 ml Q30M PRN IV Hypoglycemia 05/02/19 06:30 06/01/19 06:29 Dextrose (Dextrose 50%) 50 ml Q30M PRN IV Hypoglycemia 05/02/19 06:30 06/01/19 06:29 Erythromycin (Joey-Ped) 250 mg Q8HR GT 05/05/19 14:00 05/12/19 13:59 05/08/19 13:32 Heparin Sodium (Porcine) (Heparin 5000 units/ml) 5,000 units EVERY 12 HOURS SUBQ 05/01/19 21:00 05/31/19 20:59 05/08/19 08:57 Insulin Aspart (NovoLOG) EVERY 6 HOURS SUBQ 05/02/19 07:30 06/01/19 07:29 05/08/19 12:24 Linezolid (Zyvox) 600 mg EVERY 12 HOURS ORAL 05/04/19 21:00 05/09/19 20:59 05/08/19 08:56 Lorazepam (Ativan) 0.5 mg Q6H PRN NG For Anxiety 05/04/19 09:30 05/09/19 07:29 Meropenem 1 gm/ Sodium Chloride 55 ml @ 110 mls/hr Q8HR IVPB 05/05/19 22:00 05/10/19 21:59 05/08/19 13:32 Midodrine (Pro-Amatine) 5 mg THREE TIMES A DAY NG 05/06/19 13:00 06/04/19 12:59 05/08/19 13:32 Norepinephrine Bitartrate 4 mg/ Dextrose 254 ml @ 0 mls/hr Q24H IV 05/01/19 12:45 05/31/19 12:44 05/04/19 18:15 Ondansetron HCl (Zofran) 4 mg Q6H PRN IVP Nausea & Vomiting 05/01/19 12:45 05/31/19 12:44 Pantoprazole (Protonix) 40 mg Q12HR IV 05/01/19 21:00 06/01/19 08:59 05/08/19 08:56 Potassium Chloride (K-Dur) 20 meq TWICE A DAY NG 05/04/19 09:18 06/03/19 09:17 05/08/19 08:56 Risperidone (RisperDAL) 0.25 mg QHS PRN GT Agitation 05/02/19 07:30 06/01/19 07:29 Jennifer Palm MD May 08, 2019 17:39
--- NOTE | 2019-05-08 18:36 | NUR ---
NURSE NOTES: Patient VS remains stable at this time. Patient showing no sign of acute distress. Glucerna 1.2 running at 30mL/hr with 40mL of residual at this time. Will continue to monitor. Patient repositioned and oral care performed at this time. Bed in low position with bed alarm on and call light in reach.
--- NOTE | 2019-05-08 19:18 | NUR ---
HAND-OFF: Report given to MONA Murphy. Patient VS remain stable. Temp now 97.8. Endorsed to continue to monitor. Patient has small amount of residual noted in G tube. Endorsed to monitor and follow up.
--- NOTE | 2019-05-08 19:19 | NUR ---
NURSE NOTES: Received patient from Saskia Galvez RN. Will continue plan of care.
--- NOTE | 2019-05-08 20:00 | NUR ---
NURSE NOTES: Patient is stable. Opens eyes but does not track and is non-verbal. ETT 7.5. 22cm at lip line with vent settings of AC:16, TV:500, FiO2:30%, PEEP:5, showing no signs of distress. Bed low, locked and alarm is activated. She is unable to get out of bed and unable to reach ETT tube. Will continue plan of care.
[2019-05-08] MEDS: Dyna-Hex 2% Top Sol 2oz TOPIC SCH (20:21)
--- NOTE | 2019-05-08 20:38 | Cardiology Progress Note ---
Assessment/Plan Assessment/Plan 1. Acute febrile illness, sepsis. 2. Hypotension. 3. Possible pneumonia/ respiratory failure acute 4. Urinary tract infection? 5. Hypernatremia. 6. Renal insufficiency and failure. 7. Dementia. 8. G-tube placement. 9. anemia 10. thrombocytopenia 11. lactic acidosis 12. hyperglycemia improved pulm secretion per staff iv abx vent support failed weaning plt normal abn trop noted demand related cxr personally reviewed looks ok d/w rn pulm toilette echo lv fxn normal cxr personally reviewed tele personally reviewed Subjective ROS Limited/Unobtainable: Yes Objective Last 24 Hour Vital Signs Date Time Temp Pulse Resp B/P (MAP) Pulse Ox O2 Delivery O2 Flow Rate FiO2 05/08/19 20:00 30 05/08/19 20:00 Mechanical Ventilator 05/08/19 19:04 62 16 30 05/08/19 19:00 65 16 126/45 (72) 99 05/08/19 18:00 68 17 117/33 (61) 100 05/08/19 17:30 66 17 111/33 (59) 100 05/08/19 17:13 69 20 30 05/08/19 17:00 68 17 109/45 (66) 97 05/08/19 16:00 30 05/08/19 16:00 71 05/08/19 16:00 Mechanical Ventilator 05/08/19 16:00 99.2 68 18 138/51 (80) 100 05/08/19 15:05 71 16 30 05/08/19 15:00 69 17 114/57 (76) 99 05/08/19 14:00 70 17 118/46 (70) 99 05/08/19 13:40 72 22 30 05/08/19 13:00 68 16 114/43 (66) 98 05/08/19 12:26 111/45 05/08/19 12:00 99.4 70 17 111/45 (67) 99 05/08/19 12:00 30 05/08/19 12:00 Mechanical Ventilator 05/08/19 12:00 66 05/08/19 11:30 70 16 30 05/08/19 11:00 69 17 109/40 (63) 99 05/08/19 10:03 72 35 30 05/08/19 10:00 76 14 116/50 (72) 98 05/08/19 09:57 78 20 30 30 05/08/19 09:00 71 18 111/53 (72) 100 05/08/19 08:00 99.2 67 16 103/49 (67) 100 05/08/19 08:00 67 05/08/19 08:00 30 05/08/19 08:00 Mechanical Ventilator 05/08/19 08:00 67 05/08/19 07:24 70 16 30 05/08/19 07:00 65 16 98/39 (58) 100 05/08/19 06:00 70 18 97/40 (59) 100 05/08/19 05:20 67 16 30 05/08/19 05:00 68 16 107/57 (74) 100 05/08/19 04:00 30 05/08/19 04:00 98.9 70 17 111/46 (67) 98 05/08/19 04:00 60 05/08/19 04:00 Mechanical Ventilator 05/08/19 03:06 66 16 30 05/08/19 03:00 67 16 119/47 (71) 100 05/08/19 02:00 60 16 124/45 (71) 100 05/08/19 01:16 61 16 30 05/08/19 01:00 63 16 95/40 (58) 98 05/08/19 00:00 Mechanical Ventilator 05/08/19 00:00 60 05/08/19 00:00 98.7 61 16 109/44 (65) 99 05/08/19 00:00 30 05/07/19 23:07 62 16 30 05/07/19 23:00 61 16 119/43 (68) 99 05/07/19 22:00 57 16 106/43 (64) 99 05/07/19 21:11 56 16 30 05/07/19 21:00 61 16 111/42 (65) 100 General Appearance: no apparent distress, on vent, patient on isolation Cardiovascular: normal rate Respiratory/Chest: crackles/rales Abdomen: normal bowel sounds, non tender, soft Extremities: no swelling Intake and Output 05/07/19 05/08/19 18:59 06:59 Intake Total 1050 ml 1045 ml Output Total 915 ml 730 ml Balance 135 ml 315 ml IV Total 610 ml 605 ml Tube Feeding 290 ml 240 ml Other 150 ml 200 ml Output Urine Total 915 ml 730 ml # Bowel Movements 4 1 Laboratory Tests Test 05/08/19 04:00 05/08/19 04:45 Arterial Blood pH 7.431 (7.350-7.450) Arterial Blood Partial Pressure CO2 24.2 mmHg (35.0-45.0) *L Arterial Blood Partial Pressure O2 113.9 mmHg (75.0-100.0) H Arterial Blood HCO3 15.7 mmol/L (22.0-26.0) *L Arterial Blood Oxygen Saturation 97.7 % (95-100) Arterial Blood Base Excess -7.1 (-2-2) L Silas Test Positive White Blood Count 7.6 K/UL (4.8-10.8) Red Blood Count 3.27 M/UL (4.20-5.40) L Hemoglobin 9.5 G/DL (12.0-16.0) L Hematocrit 28.8 % (37.0-47.0) L Mean Corpuscular Volume 88 FL (80-99) Mean Corpuscular Hemoglobin 29.0 PG (27.0-31.0) Mean Corpuscular Hemoglobin Concent 32.9 G/DL (32.0-36.0) Red Cell Distribution Width 15.7 % (11.6-14.8) H Platelet Count 196 K/UL (150-450) Mean Platelet Volume 6.0 FL (6.5-10.1) L Neutrophils (%) (Auto) 74.2 % (45.0-75.0) Lymphocytes (%) (Auto) 18.7 % (20.0-45.0) L Monocytes (%) (Auto) 4.0 % (1.0-10.0) Eosinophils (%) (Auto) 2.5 % (0.0-3.0) Basophils (%) (Auto) 0.6 % (0.0-2.0) Sodium Level 135 MMOL/L (136-145) L Potassium Level 4.4 MMOL/L (3.5-5.1) Chloride Level 110 MMOL/L (98-107) H Carbon Dioxide Level 20 MMOL/L (21-32) L Anion Gap 5 mmol/L (5-15) Blood Urea Nitrogen 33 mg/dL (7-18) H Creatinine 1.1 MG/DL (0.55-1.30) Estimat Glomerular Filtration Rate mL/min (>60) Glucose Level 118 MG/DL (74-106) H Calcium Level 8.6 MG/DL (8.5-10.1) Phosphorus Level 2.5 MG/DL (2.5-4.9) Magnesium Level 1.9 MG/DL (1.8-2.4) Total Bilirubin 0.5 MG/DL (0.2-1.0) Aspartate Amino Transf (AST/SGOT) 44 U/L (15-37) H Alanine Aminotransferase (ALT/SGPT) 63 U/L (12-78) Alkaline Phosphatase 290 U/L (46-116) H Total Protein 4.3 G/DL (6.4-8.2) L Albumin 1.4 G/DL (3.4-5.0) L Globulin 2.9 g/dL Albumin/Globulin Ratio 0.5 (1.0-2.7) L Objective Current Medications Medications (Trade) Dose Ordered Sig/Vane Route PRN Reason Start Time Stop Time Status Last Admin Dose Admin Acetaminophen (Tylenol) 650 mg Q4H PRN ORAL fever 05/01/19 12:45 05/31/19 12:44 Albuterol/ Ipratropium (Albuterol/ Ipratropium) 3 ml Q4H PRN HHN Shortness of Breath 05/01/19 12:45 05/06/19 12:44 Amikacin Protocol (Amikacin pharmacy to dose) 1 ea DAILY PRN MISC . 05/01/19 12:45 05/31/19 12:44 Amikacin Sulfate 500 mg/Sodium Chloride 112 ml @ 112 mls/hr Q24H IV 05/01/19 18:00 05/08/19 17:59 05/01/19 18:04 Chlorhexidine Gluconate (Shanice-Hex 2%) 1 applic DAILY@2000 TOPIC 05/01/19 20:00 05/31/19 19:59 05/01/19 19:48 Dextrose (Dextrose 50%) 25 ml Q30M PRN IV Hypoglycemia 05/02/19 06:30 06/01/19 06:29 Dextrose (Dextrose 50%) 50 ml Q30M PRN IV Hypoglycemia 05/02/19 06:30 06/01/19 06:29 Ertapenem 0.5 gm/ Sodium Chloride 55 ml @ 110 mls/hr Q24H IV 05/01/19 21:00 05/06/19 20:59 05/01/19 21:15 Heparin Sodium (Porcine) (Heparin 5000 units/ml) 5,000 units EVERY 12 HOURS SUBQ 05/01/19 21:00 05/31/19 20:59 05/01/19 21:17 Insulin Aspart (NovoLOG) EVERY 6 HOURS SUBQ 05/02/19 07:30 06/01/19 07:29 05/02/19 08:42 Lorazepam (Ativan 2mg/ml 1ml) 2 mg Q2H PRN IV For Anxiety 05/01/19 12:45 05/08/19 12:44 05/02/19 11:48 Lorazepam (Ativan) 0.5 mg Q6H PRN ORAL For Anxiety 05/02/19 07:30 05/09/19 07:29 Magnesium Sulfate 100 ml @ 100 mls/hr Q1H IVPB 05/02/19 10:00 05/02/19 13:59 05/02/19 11:03 Morphine Sulfate (Morphine Sulfate) 4 mg Q4H PRN IVP Severe Pain (Pain Scale 7-10) 05/01/19 12:45 05/08/19 12:44 Norepinephrine Bitartrate 4 mg/ Dextrose 254 ml @ 0 mls/hr Q24H IV 05/01/19 12:45 05/31/19 12:44 05/01/19 15:45 Ondansetron HCl (Zofran) 4 mg Q6H PRN IVP Nausea & Vomiting 05/01/19 12:45 05/31/19 12:44 Pantoprazole (Protonix) 40 mg Q12HR IV 05/01/19 21:00 06/01/19 08:59 05/02/19 08:29 Potassium Phosphate 20 mm/ Sodium Chloride 281.6667 ml @ 46.944 m... ONCE ONCE IV 05/02/19 11:00 05/02/19 16:59 05/02/19 11:02 Potassium Chloride 100 ml @ 100 mls/hr Q1HR IVPB 05/02/19 10:00 05/02/19 13:59 05/02/19 11:02 Risperidone (RisperDAL) 0.25 mg QHS PRN GT Agitation 05/02/19 07:30 06/01/19 07:29 Sodium Chloride 1,000 ml @ 75 mls/hr [id number] IV 05/02/19 10:39 06/01/19 10:38 05/02/19 11:02 Vancomycin HCl (Vanco rx to dose) 1 ea DAILY PRN MISC . 05/01/19 12:45 05/31/19 12:44 Martin Sarmiento MD May 08, 2019 20:38
--- NOTE | 2019-05-08 22:00 | NUR ---
NURSE NOTES: Patient is stable. Suctioning and repositioning provided. Patient open eyes to light pain but does not track and follow commands. Will continue plan of care.
[2019-05-09] VITALS (24 sets, daily range): BP systolic 97–117; BP diastolic 37–62
--- NOTE | 2019-05-09 | NUR ---
NURSE NOTES: Patient is stable. Suctioning provided. IV tubing and TKO changed. Will continue plan of care.
--- NOTE | 2019-05-09 02:00 | NUR ---
NURSE NOTES: Patient is stable. Bed bath, linen change, suctioning and dressing change provided. Turned and repositioned. Will continue plan of care.
--- NOTE | 2019-05-09 04:00 | NUR ---
NURSE NOTES: Patient is now sleeping comfortably. Turned and repositioned. Vital signs are stable.
[2019-05-09 05:11] LABS: BASOPHILS % (AUTO) 0.6 % (0.0-2.0); EOSINOPHILS % (AUTO) 2.6 % (0.0-3.0); HEMATOCRIT 29.8 % (37.0-47.0); HEMOGLOBIN 9.7 G/DL (12.0-16.0); LYMPHOCYTES % (AUTO) 13.7 % (20.0-45.0); MEAN CORPUSCULAR VOLUME 89 FL (80-99); MONOCYTES % (AUTO) 3.9 % (1.0-10.0); NEUTROPHILS % (AUTO) 79.2 % (45.0-75.0); PLATELET COUNT 217 K/UL (150-450); RED BLOOD COUNT 3.34 M/UL (4.20-5.40); RED CELL DISTRIBUTION WIDTH 15.4 % (11.6-14.8); WHITE BLOOD COUNT 8.3 K/UL (4.8-10.8)
[2019-05-09] MEDS: Meropenem 1 GM in NS 55 ML IVPB SCH ×3 (05:14→21:11)
[2019-05-09] MEDS: Erythromycin Ethylsuccinate 200mg/5ml Susp GT SCH ×3 (05:14→21:12)
[2019-05-09] MEDS: NovoLOG Insulin Flexpen SUBQ SCH ×4 (05:15→23:41)
[2019-05-09 05:34] LABS: ALANINE AMINOTRANSFERASE 65 U/L (12-78); ALBUMIN 1.4 G/DL (3.4-5.0); ALBUMIN/GLOBULIN RATIO 0.5 (1.0-2.7); ALKALINE PHOSPHATASE 329 U/L (46-116); ANION GAP 8 mmol/L (5-15); ASPARTATE AMINO TRANSFERASE 46 U/L (15-37); BILIRUBIN,TOTAL 0.3 MG/DL (0.2-1.0); BLOOD UREA NITROGEN 29 mg/dL (7-18); CALCIUM 9.1 MG/DL (8.5-10.1); CARBON DIOXIDE 19 MMOL/L (21-32); CHLORIDE 112 MMOL/L (98-107); CREATININE 1.2 MG/DL (0.55-1.30); PHOSPHORUS 2.5 MG/DL (2.5-4.9); POTASSIUM 4.7 MMOL/L (3.5-5.1); SODIUM 139 MMOL/L (136-145)
--- NOTE | 2019-05-09 07:03 | NUR ---
RESPIRATORY NOTE: received pt orally intubated with ETT 7.5 and placed 22cm at the lip. ETT is secured via anchor fast with no visible wounds or redness. vent settings are as followed with no resp distress noted. ambu bag at bedside with alarms on and audible. will cont to monitor.
--- NOTE | 2019-05-09 07:27 | NUR ---
HAND-OFF: Report given to MONA Arriaza.
--- NOTE | 2019-05-09 08:09 | NUR ---
NURSE NOTES: Patient received from MONA Murphy. Patient awake when received , orally intubated with ETT 7.11/16 and current settings AC 16 VT 500 FiO2 30% and Peep 5.Afebrile at this time with no apparent signs acute distress.Awake and alert but flat affect and non verbally responsive.Noted with moderate amount clear oral secretion.Suctioned as tolerated and mouth care done.Lungs sounds diminished, abdomen soft and non distended with bowel sounds present in all 4 quadrants.Hilario catheter in place draining yellow urine with no apparent sediments. On GT feeding Glucerna 1.2 at 50cc/hr with 10cc residual, tolerate well at this time.HOB elevated at 35 degree to prevent risks aspiration.Left upper arm Picc dressing clean and intact running TKO.No apparent infiltration.Patient turned and repositioned for comfort and skin management.Bed in low position and locked, 3/4 siderails up for safety.Call light within easy reach.Will continue to monitor.
[2019-05-09] MEDS: Pantoprazole Inj IV SCH ×2 (08:55→21:11)
--- NOTE | 2019-05-09 08:55 | NUR ---
RADIOLOGY DEPT., CHEST X-RAY DONE.-P.DYE
[2019-05-09] MEDS: Heparin 5000 units/ml inj SUBQ SCH ×2 (08:59→21:13)
--- NOTE | 2019-05-09 09:40 | NUR ---
RESPIRATORY NOTE: placed pt on CPAP PS8 fio2 30%. pt slightly tachypneic but non labored. RR 23-28 with Vt 290-400. will leave pt on CPAP and cont to monitor. RN notified
--- NOTE | 2019-05-09 09:47 | NUR ---
RESPIRATORY NOTE: pt lasted 10 mins on CPAP. became more tachypneic. placed back on AC mode.
--- NOTE | 2019-05-09 10:04 | NUR ---
NURSE NOTES: Patient turned and repositioned for comfort and skin management.Patient seen by Dr Ho , made aware potassium 4.3 and order to continue with K-Dur 20 meq BID.Magnesium 1.7 and cover order of Magnesium [address] Ho.Will continue close monitoring Addendum: 05/09/19 at 1109 by Sofiya Martinez RN Pt was placed on CPAP PS 8 and became tachypneic RR 44 after 10mn. Placed back on AC mode and Dr Lai made aware
--- NOTE | 2019-05-09 10:23 | Pulmonolgy Critical Care Note ---
Critical Care - Asmt/Plan Problems: (1) Septic shock (2) Acute respiratory failure (3) COPD (chronic obstructive pulmonary disease) (4) Hypernatremia (5) Acute kidney injury (6) Hypertension (7) Diabetes mellitus (8) Feeding by G-tube Respiratory: monitor respiratory rate, adjust FIO2, CXR Cardiac: continue pressors, continue to monitor HR/BP Renal: F/U I&O, keep IV fluid Infectious Disease: check cultures, continue antibiotics Gastrointestinal: continue feedings/current rate Endocrine: monitor blood sugar, check HgA1C Neurologic: PRN Ativan, PRN Morphine Affect: PRN ativan Prophylaxis: Protonix Time Spent (Minutes): 40 Notes Reviewed: cardio Critical Care - Objective Last 24 Hour Vital Signs Date Time Temp Pulse Resp B/P (MAP) Pulse Ox O2 Delivery O2 Flow Rate FiO2 05/09/19 09:46 30 05/09/19 09:37 30 30 05/09/19 09:37 99 05/09/19 09:00 69 16 116/42 (66) 100 05/09/19 08:57 79 17 30 05/09/19 08:00 68 05/09/19 08:00 Mechanical Ventilator 05/09/19 08:00 98.1 65 16 104/45 (64) 100 05/09/19 08:00 30 05/09/19 07:00 66 16 108/62 (77) 99 05/09/19 06:57 71 16 30 05/09/19 06:00 68 16 107/39 (61) 100 05/09/19 05:00 64 16 100/39 (59) 98 05/09/19 05:00 69 17 30 05/09/19 04:00 30 05/09/19 04:00 97.6 64 16 113/38 (63) 100 05/09/19 04:00 Mechanical Ventilator 05/09/19 03:49 64 05/09/19 03:24 58 16 30 05/09/19 03:00 63 16 100/60 (73) 100 05/09/19 02:00 71 17 112/42 (65) 99 05/09/19 01:29 68 16 30 05/09/19 01:00 60 16 107/38 (61) 99 05/09/19 00:00 98.7 66 16 111/52 (71) 99 05/09/19 00:00 30 05/09/19 00:00 Mechanical Ventilator 05/08/19 23:47 66 05/08/19 23:00 66 16 116/46 (69) 98 05/08/19 22:48 61 16 30 05/08/19 22:00 63 16 120/41 (67) 100 05/08/19 21:00 63 16 115/45 (68) 100 05/08/19 21:00 60 16 30 05/08/19 20:00 97.8 65 16 122/48 (72) 99 05/08/19 20:00 30 05/08/19 20:00 Mechanical Ventilator 05/08/19 19:27 67 05/08/19 19:04 62 16 30 05/08/19 19:00 65 16 126/45 (72) 99 05/08/19 18:00 68 17 117/33 (61) 100 05/08/19 17:30 66 17 111/33 (59) 100 05/08/19 17:13 69 20 30 05/08/19 17:00 68 17 109/45 (66) 97 05/08/19 16:00 30 05/08/19 16:00 71 05/08/19 16:00 Mechanical Ventilator 05/08/19 16:00 99.2 68 18 138/51 (80) 100 05/08/19 15:05 71 16 30 05/08/19 15:00 69 17 114/57 (76) 99 05/08/19 14:00 70 17 118/46 (70) 99 05/08/19 13:40 72 22 30 05/08/19 13:00 68 16 114/43 (66) 98 05/08/19 12:26 111/45 05/08/19 12:00 99.4 70 17 111/45 (67) 99 05/08/19 12:00 30 05/08/19 12:00 Mechanical Ventilator 05/08/19 12:00 66 05/08/19 11:30 70 16 30 05/08/19 11:00 69 17 109/40 (63) 99 Status: sedated Condition: critical HEENT: atraumatic Neck: full ROM Lungs: rales, rhonchi Heart: HR/BP stable Abdomen: soft, active bowel sounds Extremities: no C/C/E Decubiti: location Accucheck: 138 Critical Care - Subjective ROS Limited/Unobtainable: Yes ICU Day: 8 Intubation Day: 8 Condition: critical EKG Rhythm: Sinus Rhythm FI02: 30 Vent Support Breath Rate: 16 Vent Support Mode: AC Vent Tidal Volume: 500 Sputum Amount: Scant PEEP: 5.0 PIP: 19 Tube Feeding Amount: 50 I&O: Intake and Output 05/08/19 05/09/19 19:00 07:00 Intake Total 650 ml 700 ml Output Total 910 ml 875 ml Balance -260 ml -175 ml Free Water 50 ml IV Total 180 ml 110 ml Tube Feeding 360 ml 560 ml Other 60 ml 30 ml Output Urine Total 910 ml 875 ml # Bowel Movements 2 4 ET-Tube: 7.5 ET Position: 22 Labs: Laboratory Tests Test 05/09/19 03:15 05/09/19 08:54 White Blood Count 8.3 K/UL (4.8-10.8) Red Blood Count 3.34 M/UL (4.20-5.40) L Hemoglobin 9.7 G/DL (12.0-16.0) L Hematocrit 29.8 % (37.0-47.0) L Mean Corpuscular Volume 89 FL (80-99) Mean Corpuscular Hemoglobin 29.1 PG (27.0-31.0) Mean Corpuscular Hemoglobin Concent 32.6 G/DL (32.0-36.0) Red Cell Distribution Width 15.4 % (11.6-14.8) H Platelet Count 217 K/UL (150-450) Mean Platelet Volume 5.7 FL (6.5-10.1) L Neutrophils (%) (Auto) 79.2 % (45.0-75.0) H Lymphocytes (%) (Auto) 13.7 % (20.0-45.0) L Monocytes (%) (Auto) 3.9 % (1.0-10.0) Eosinophils (%) (Auto) 2.6 % (0.0-3.0) Basophils (%) (Auto) 0.6 % (0.0-2.0) Sodium Level 139 MMOL/L (136-145) Potassium Level 4.7 MMOL/L (3.5-5.1) Chloride Level 112 MMOL/L (98-107) H Carbon Dioxide Level 19 MMOL/L (21-32) L Anion Gap 8 mmol/L (5-15) Blood Urea Nitrogen 29 mg/dL (7-18) H Creatinine 1.2 MG/DL (0.55-1.30) Estimat Glomerular Filtration Rate mL/min (>60) Glucose Level 121 MG/DL (74-106) H Uric Acid 4.7 MG/DL (2.6-7.2) Calcium Level 9.1 MG/DL (8.5-10.1) Phosphorus Level 2.5 MG/DL (2.5-4.9) Magnesium Level 1.7 MG/DL (1.8-2.4) L Total Bilirubin 0.3 MG/DL (0.2-1.0) Aspartate Amino Transf (AST/SGOT) 46 U/L (15-37) H Alanine Aminotransferase (ALT/SGPT) 65 U/L (12-78) Alkaline Phosphatase 329 U/L (46-116) H Total Protein 4.3 G/DL (6.4-8.2) L Albumin 1.4 G/DL (3.4-5.0) L Globulin 2.9 g/dL Albumin/Globulin Ratio 0.5 (1.0-2.7) L Arterial Blood pH 7.423 (7.350-7.450) Arterial Blood Partial Pressure CO2 28.2 mmHg (35.0-45.0) L Arterial Blood Partial Pressure O2 104.1 mmHg (75.0-100.0) H Arterial Blood HCO3 18.0 mmol/L (22.0-26.0) L Arterial Blood Oxygen Saturation 97.4 % (95-100) Arterial Blood Base Excess -5.4 (-2-2) L Silas Test Positive Yancy Lai MD May 09, 2019 10:23
--- NOTE | 2019-05-09 11:52 | Nephrology Progress Note ---
Assessment/Plan Problem List: (1) Hypercalcemia Assessment: improving (2) Septic shock (3) Acute kidney injury (4) Acute respiratory failure (5) Dehydration (6) Anemia Assessment Acute renal failure Dehydration / HyperNatremia / HyperCalcemia Septic Shock Respiratory failure / COPD NSTEMI DM PEG Schizophrenia Anemia Plan Aredia 90 mg IV and Nasal Calcitonin correct lytes prn Lasix trial Midodrine IV fluid change to 1/2 NS K and Phos and Mag supplement as needed monitor renal parameters and Calcium urine studies anemia au avoid Nephrotoxics Subjective ROS Limited/Unobtainable: Yes Objective Objective Last 24 Hour Vital Signs Date Time Temp Pulse Resp B/P (MAP) Pulse Ox O2 Delivery O2 Flow Rate FiO2 05/09/19 11:00 73 16 108/38 (61) 99 05/09/19 10:38 75 17 30 05/09/19 10:00 73 16 110/41 (64) 100 05/09/19 09:46 30 05/09/19 09:37 30 30 05/09/19 09:37 99 05/09/19 09:00 69 16 116/42 (66) 100 05/09/19 08:57 79 17 30 05/09/19 08:00 68 05/09/19 08:00 Mechanical Ventilator 05/09/19 08:00 98.1 65 16 104/45 (64) 100 05/09/19 08:00 30 05/09/19 07:00 66 16 108/62 (77) 99 05/09/19 06:57 71 16 30 05/09/19 06:00 68 16 107/39 (61) 100 05/09/19 05:00 64 16 100/39 (59) 98 05/09/19 05:00 69 17 30 05/09/19 04:00 30 05/09/19 04:00 97.6 64 16 113/38 (63) 100 05/09/19 04:00 Mechanical Ventilator 05/09/19 03:49 64 05/09/19 03:24 58 16 30 05/09/19 03:00 63 16 100/60 (73) 100 05/09/19 02:00 71 17 112/42 (65) 99 05/09/19 01:29 68 16 30 05/09/19 01:00 60 16 107/38 (61) 99 05/09/19 00:00 98.7 66 16 111/52 (71) 99 05/09/19 00:00 30 05/09/19 00:00 Mechanical Ventilator 05/08/19 23:47 66 05/08/19 23:00 66 16 116/46 (69) 98 05/08/19 22:48 61 16 30 05/08/19 22:00 63 16 120/41 (67) 100 05/08/19 21:00 63 16 115/45 (68) 100 05/08/19 21:00 60 16 30 05/08/19 20:00 97.8 65 16 122/48 (72) 99 05/08/19 20:00 30 05/08/19 20:00 Mechanical Ventilator 05/08/19 19:27 67 05/08/19 19:04 62 16 30 05/08/19 19:00 65 16 126/45 (72) 99 05/08/19 18:00 68 17 117/33 (61) 100 05/08/19 17:30 66 17 111/33 (59) 100 05/08/19 17:13 69 20 30 05/08/19 17:00 68 17 109/45 (66) 97 05/08/19 16:00 30 05/08/19 16:00 71 05/08/19 16:00 Mechanical Ventilator 05/08/19 16:00 99.2 68 18 138/51 (80) 100 05/08/19 15:05 71 16 30 05/08/19 15:00 69 17 114/57 (76) 99 05/08/19 14:00 70 17 118/46 (70) 99 05/08/19 13:40 72 22 30 05/08/19 13:00 68 16 114/43 (66) 98 05/08/19 12:26 111/45 05/08/19 12:00 99.4 70 17 111/45 (67) 99 05/08/19 12:00 30 05/08/19 12:00 Mechanical Ventilator 05/08/19 12:00 66 Intake and Output 05/08/19 05/09/19 19:00 07:00 Intake Total 650 ml 700 ml Output Total 910 ml 875 ml Balance -260 ml -175 ml Free Water 50 ml IV Total 180 ml 110 ml Tube Feeding 360 ml 560 ml Other 60 ml 30 ml Output Urine Total 910 ml 875 ml # Bowel Movements 2 4 Laboratory Tests 05/09/19 03:15: White Blood Count 8.3, Red Blood Count 3.34L, Hemoglobin 9.7L, Hematocrit 29.8L , Mean Corpuscular Volume 89, Mean Corpuscular Hemoglobin 29.1, Mean Corpuscular Hemoglobin Concent 32.6, Red Cell Distribution Width 15.4H, Platelet Count 217, Mean Platelet Volume 5.7L, Neutrophils (%) (Auto) 79.2H, Lymphocytes (%) (Auto) 13.7L, Monocytes (%) (Auto) 3.9, Eosinophils (%) (Auto) 2.6, Basophils (%) (Auto) 0.6, Sodium Level 139, Potassium Level 4.7, Chloride Level 112H, Carbon Dioxide Level 19L, Anion Gap 8, Blood Urea Nitrogen 29H, Creatinine 1.2, Estimat Glomerular Filtration Rate , Glucose Level 121H, Uric Acid 4.7, Calcium Level 9.1, Phosphorus Level 2.5, Magnesium Level 1.7L, Total Bilirubin 0.3, Aspartate Amino Transf (AST/SGOT) 46H, Alanine Aminotransferase ( ALT/SGPT) 65, Alkaline Phosphatase 329H, Total Protein 4.3L, Albumin 1.4L, Globulin 2.9, Albumin/Globulin Ratio 0.5L 05/09/19 08:54: Arterial Blood pH 7.423, Arterial Blood Partial Pressure CO2 28.2L, Arterial Blood Partial Pressure O2 104.1H, Arterial Blood HCO3 18.0L, Arterial Blood Oxygen Saturation 97.4, Arterial Blood Base Excess -5.4L, Silas Test Positive Height (Feet): 5 Height (Inches): 7.00 Weight (Pounds): 120 General Appearance: no apparent distress EENT: other - vented Cardiovascular: tachycardia Respiratory/Chest: decreased breath sounds Abdomen: distended Fox Ho MD May 09, 2019 11:52
--- NOTE | 2019-05-09 12:06 | NUR ---
NURSE NOTES: Patient turned and repositioned for comfort and skin management.Suctioned as tolerated and mouth care done.HOB kept elevated to prevent aspiration.Call light within easy reach.No significant change in condition at this time.Will continue same care plan
--- NOTE | 2019-05-09 12:48 | GI Progress Note ---
Assessment/Plan Problems: (1) Septic shock ICD Codes: A41.9 - Sepsis, unspecified organism; R65.21 - Severe sepsis with septic shock SNOMED: 69053294, 4380465 (2) Feeding by G-tube ICD Codes: Z93.1 - Gastrostomy status SNOMED: 002221664, 652136163, 844782831 (3) Diabetes mellitus ICD Codes: E11.9 - Type 2 diabetes mellitus without complications SNOMED: 01836870 (4) Anemia ICD Codes: D64.9 - Anemia, unspecified SNOMED: 184468370 Status: unchanged Status Narrative Discussed with Dr. Lau. Assessment/Plan No plans for any GI procedures at this given time. occult blood stool to evaluate for any GI bleed, negative Monitor H&H, PRN transfusions PPI GTFs Electrolyte correction, increase free water flushes for hypernatremia GT site care daily and as needed We will follow on a daily basis with additional recommendation add erythromycin for elevated residuals, TF tolerated The patient was seen and examined at bedside and all new and available data was reviewed in the patients chart. I agree with the above findings, impression and plan. (Patient seen earlier today. Signature stamp does not reflect patient encounter time.). - Alfredo Lau MD Subjective Subjective limited Objective Last 24 Hour Vital Signs Date Time Temp Pulse Resp B/P (MAP) Pulse Ox O2 Delivery O2 Flow Rate FiO2 05/09/19 12:02 102/58 05/09/19 12:00 97.8 69 16 97/38 (57) 98 05/09/19 12:00 Mechanical Ventilator 05/09/19 12:00 30 05/09/19 12:00 68 05/09/19 11:00 73 16 108/38 (61) 99 05/09/19 10:38 75 17 30 05/09/19 10:00 73 16 110/41 (64) 100 05/09/19 09:46 30 05/09/19 09:37 30 30 05/09/19 09:37 99 05/09/19 09:00 69 16 116/42 (66) 100 05/09/19 08:57 79 17 30 05/09/19 08:00 68 05/09/19 08:00 Mechanical Ventilator 05/09/19 08:00 98.1 65 16 104/45 (64) 100 05/09/19 08:00 30 05/09/19 07:00 66 16 108/62 (77) 99 05/09/19 06:57 71 16 30 05/09/19 06:00 68 16 107/39 (61) 100 05/09/19 05:00 64 16 100/39 (59) 98 05/09/19 05:00 69 17 30 05/09/19 04:00 30 05/09/19 04:00 97.6 64 16 113/38 (63) 100 05/09/19 04:00 Mechanical Ventilator 05/09/19 03:49 64 05/09/19 03:24 58 16 30 05/09/19 03:00 63 16 100/60 (73) 100 05/09/19 02:00 71 17 112/42 (65) 99 05/09/19 01:29 68 16 30 05/09/19 01:00 60 16 107/38 (61) 99 05/09/19 00:00 98.7 66 16 111/52 (71) 99 05/09/19 00:00 30 05/09/19 00:00 Mechanical Ventilator 05/08/19 23:47 66 05/08/19 23:00 66 16 116/46 (69) 98 05/08/19 22:48 61 16 30 05/08/19 22:00 63 16 120/41 (67) 100 05/08/19 21:00 63 16 115/45 (68) 100 05/08/19 21:00 60 16 30 05/08/19 20:00 97.8 65 16 122/48 (72) 99 05/08/19 20:00 30 05/08/19 20:00 Mechanical Ventilator 05/08/19 19:27 67 05/08/19 19:04 62 16 30 05/08/19 19:00 65 16 126/45 (72) 99 05/08/19 18:00 68 17 117/33 (61) 100 05/08/19 17:30 66 17 111/33 (59) 100 05/08/19 17:13 69 20 30 05/08/19 17:00 68 17 109/45 (66) 97 05/08/19 16:00 30 05/08/19 16:00 71 05/08/19 16:00 Mechanical Ventilator 11/11/19 16:00 99.2 68 18 138/51 (80) 100 05/08/19 15:05 71 16 30 05/08/19 15:00 69 17 114/57 (76) 99 05/08/19 14:00 70 17 118/46 (70) 99 05/08/19 13:40 72 22 30 05/08/19 13:00 68 16 114/43 (66) 98 Intake and Output 05/08/19 05/09/19 19:00 07:00 Intake Total 650 ml 700 ml Output Total 910 ml 875 ml Balance -260 ml -175 ml Free Water 50 ml IV Total 180 ml 110 ml Tube Feeding 360 ml 560 ml Other 60 ml 30 ml Output Urine Total 910 ml 875 ml # Bowel Movements 2 4 Laboratory Tests Test 05/09/19 03:15 05/09/19 08:54 White Blood Count 8.3 K/UL (4.8-10.8) Red Blood Count 3.34 M/UL (4.20-5.40) L Hemoglobin 9.7 G/DL (12.0-16.0) L Hematocrit 29.8 % (37.0-47.0) L Mean Corpuscular Volume 89 FL (80-99) Mean Corpuscular Hemoglobin 29.1 PG (27.0-31.0) Mean Corpuscular Hemoglobin Concent 32.6 G/DL (32.0-36.0) Red Cell Distribution Width 15.4 % (11.6-14.8) H Platelet Count 217 K/UL (150-450) Mean Platelet Volume 5.7 FL (6.5-10.1) L Neutrophils (%) (Auto) 79.2 % (45.0-75.0) H Lymphocytes (%) (Auto) 13.7 % (20.0-45.0) L Monocytes (%) (Auto) 3.9 % (1.0-10.0) Eosinophils (%) (Auto) 2.6 % (0.0-3.0) Basophils (%) (Auto) 0.6 % (0.0-2.0) Sodium Level 139 MMOL/L (136-145) Potassium Level 4.7 MMOL/L (3.5-5.1) Chloride Level 112 MMOL/L (98-107) H Carbon Dioxide Level 19 MMOL/L (21-32) L Anion Gap 8 mmol/L (5-15) Blood Urea Nitrogen 29 mg/dL (7-18) H Creatinine 1.2 MG/DL (0.55-1.30) Estimat Glomerular Filtration Rate mL/min (>60) Glucose Level 121 MG/DL (74-106) H Uric Acid 4.7 MG/DL (2.6-7.2) Calcium Level 9.1 MG/DL (8.5-10.1) Phosphorus Level 2.5 MG/DL (2.5-4.9) Magnesium Level 1.7 MG/DL (1.8-2.4) L Total Bilirubin 0.3 MG/DL (0.2-1.0) Aspartate Amino Transf (AST/SGOT) 46 U/L (15-37) H Alanine Aminotransferase (ALT/SGPT) 65 U/L (12-78) Alkaline Phosphatase 329 U/L (46-116) H Total Protein 4.3 G/DL (6.4-8.2) L Albumin 1.4 G/DL (3.4-5.0) L Globulin 2.9 g/dL Albumin/Globulin Ratio 0.5 (1.0-2.7) L Arterial Blood pH 7.423 (7.350-7.450) Arterial Blood Partial Pressure CO2 28.2 mmHg (35.0-45.0) L Arterial Blood Partial Pressure O2 104.1 mmHg (75.0-100.0) H Arterial Blood HCO3 18.0 mmol/L (22.0-26.0) L Arterial Blood Oxygen Saturation 97.4 % (95-100) Arterial Blood Base Excess -5.4 (-2-2) L Silas Test Positive Height (Feet): 5 Height (Inches): 7.00 Weight (Pounds): 120 General Appearance: no apparent distress Cardiovascular: normal rate Abdominal Exam: GT site - c/d/i Bekah Toro NP May 09, 2019 12:48
--- NOTE | 2019-05-09 14:09 | NUR ---
NURSE NOTES: No significant change in condition at this time.Will continue same care plan
--- NOTE | 2019-05-09 14:20 | Diagnostic Imaging Report ---
Indication: Dyspnea Comparison: 07/08/2018 A single view chest radiograph was obtained. Findings: Pulmonary vascular congestion is present and has increased since the last examination. Endotracheal tube is just above the guille in the current study. PICC line is stable. Heart size is stable. IMPRESSION: Worsening pulmonary vascular congestion
--- NOTE | 2019-05-09 14:30 | Progress Note ---
DATE: 05/09/2019 SUBJECTIVE: This is a 78-year-old patient with respiratory failure. She is confused, disorganized. Her mood is labile. She is still in the ICU, but this patient still has some altered mental status, confusion. MENTAL STATUS EXAMINATION: This is a 78-year-old female patient. Appearance is disheveled. Attitude, irritable and agitated. Affect, guarded and restricted. Intellect poor. Mood, depressed and anxious. Motor activity, psychomotor agitation. Insight and judgment is poor. DIAGNOSIS: Major depressive disorder, mild, recurrent with psychotic features, rule out dementia with psychosis. PLAN: For this patient is to treat her with a medication regimen consisting of Risperdal 0.25 mg per G-tube at bedtime. I am also going to add Namenda 5 mg twice a day to help with further decline cognition below baseline. 20 minutes of behavioral management provided. Chart reviewed. Discussed with staff. Seen and assessed at bedside. Kristen Rodgers M.D. DR: HARRIS JOB#: [id number] CC:
--- NOTE | 2019-05-09 14:53 | General Progress Note ---
Assessment/Plan Problem List: (1) Acute respiratory failure ICD Codes: J96.00 - Acute respiratory failure, unspecified whether with hypoxia or hypercapnia SNOMED: 10922113 (2) Septic shock ICD Codes: A41.9 - Sepsis, unspecified organism; R65.21 - Severe sepsis with septic shock SNOMED: 02787908, 7642449 (3) Diabetes mellitus ICD Codes: E11.9 - Type 2 diabetes mellitus without complications SNOMED: 29897860 (4) Hypertension ICD Codes: I10 - Essential (primary) hypertension SNOMED: 46110732 (5) COPD (chronic obstructive pulmonary disease) ICD Codes: J44.9 - Chronic obstructive pulmonary disease, unspecified SNOMED: 93449480 (6) Anemia ICD Codes: D64.9 - Anemia, unspecified SNOMED: 654440953 (7) Schizophrenia ICD Codes: F20.9 - Schizophrenia, unspecified SNOMED: 00345474 Status: unchanged Assessment/Plan: vent abx bp bs control cbc bmp am Subjective Constitutional: Reports: weakness Allergies: Coded Allergies: No Known Allergies (Unverified , 05/01/19) All Systems: reviewed and negative except above Subjective intubated sedated in icu Objective Last 24 Hour Vital Signs Date Time Temp Pulse Resp B/P (MAP) Pulse Ox O2 Delivery O2 Flow Rate FiO2 05/09/19 14:38 72 16 30 05/09/19 14:00 74 16 106/37 (60) 98 05/09/19 13:00 74 16 100/38 (58) 98 05/09/19 12:52 75 16 30 05/09/19 12:02 102/58 05/09/19 12:00 97.8 69 16 97/38 (57) 98 05/09/19 12:00 Mechanical Ventilator 05/09/19 12:00 30 05/09/19 12:00 68 05/09/19 11:00 73 16 108/38 (61) 99 05/09/19 10:38 75 17 30 05/09/19 10:00 73 16 110/41 (64) 100 05/09/19 09:46 30 05/09/19 09:37 30 30 05/09/19 09:37 99 05/09/19 09:00 69 16 116/42 (66) 100 05/09/19 08:57 79 17 30 05/09/19 08:00 68 05/09/19 08:00 Mechanical Ventilator 05/09/19 08:00 98.1 65 16 104/45 (64) 100 05/09/19 08:00 30 05/09/19 07:00 66 16 108/62 (77) 99 05/09/19 06:57 71 16 30 05/09/19 06:00 68 16 107/39 (61) 100 05/09/19 05:00 64 16 100/39 (59) 98 05/09/19 05:00 69 17 30 05/09/19 04:00 30 05/09/19 04:00 97.6 64 16 113/38 (63) 100 05/09/19 04:00 Mechanical Ventilator 05/09/19 03:49 64 05/09/19 03:24 58 16 30 05/09/19 03:00 63 16 100/60 (73) 100 05/09/19 02:00 71 17 112/42 (65) 99 05/09/19 01:29 68 16 30 05/09/19 01:00 60 16 107/38 (61) 99 05/09/19 00:00 98.7 66 16 111/52 (71) 99 05/09/19 00:00 30 05/09/19 00:00 Mechanical Ventilator 05/08/19 23:47 66 05/08/19 23:00 66 16 116/46 (69) 98 05/08/19 22:48 61 16 30 05/08/19 22:00 63 16 120/41 (67) 100 05/08/19 21:00 63 16 115/45 (68) 100 05/08/19 21:00 60 16 30 05/08/19 20:00 97.8 65 16 122/48 (72) 99 05/08/19 20:00 30 05/08/19 20:00 Mechanical Ventilator 05/08/19 19:27 67 05/08/19 19:04 62 16 30 05/08/19 19:00 65 16 126/45 (72) 99 05/08/19 18:00 68 17 117/33 (61) 100 05/08/19 17:30 66 17 111/33 (59) 100 05/08/19 17:13 69 20 30 05/08/19 17:00 68 17 109/45 (66) 97 05/08/19 16:00 30 05/08/19 16:00 71 05/08/19 16:00 Mechanical Ventilator 05/08/19 16:00 99.2 68 18 138/51 (80) 100 05/08/19 15:05 71 16 30 05/08/19 15:00 69 17 114/57 (76) 99 Intake and Output 05/08/19 05/09/19 19:00 07:00 Intake Total 650 ml 700 ml Output Total 910 ml 875 ml Balance -260 ml -175 ml Free Water 50 ml IV Total 180 ml 110 ml Tube Feeding 360 ml 560 ml Other 60 ml 30 ml Output Urine Total 910 ml 875 ml # Bowel Movements 2 4 Laboratory Tests 05/09/19 03:15: White Blood Count 8.3, Red Blood Count 3.34L, Hemoglobin 9.7L, Hematocrit 29.8L , Mean Corpuscular Volume 89, Mean Corpuscular Hemoglobin 29.1, Mean Corpuscular Hemoglobin Concent 32.6, Red Cell Distribution Width 15.4H, Platelet Count 217, Mean Platelet Volume 5.7L, Neutrophils (%) (Auto) 79.2H, Lymphocytes (%) (Auto) 13.7L, Monocytes (%) (Auto) 3.9, Eosinophils (%) (Auto) 2.6, Basophils (%) (Auto) 0.6, Sodium Level 139, Potassium Level 4.7, Chloride Level 112H, Carbon Dioxide Level 19L, Anion Gap 8, Blood Urea Nitrogen 29H, Creatinine 1.2, Estimat Glomerular Filtration Rate , Glucose Level 121H, Uric Acid 4.7, Calcium Level 9.1, Phosphorus Level 2.5, Magnesium Level 1.7L, Total Bilirubin 0.3, Aspartate Amino Transf (AST/SGOT) 46H, Alanine Aminotransferase ( ALT/SGPT) 65, Alkaline Phosphatase 329H, Total Protein 4.3L, Albumin 1.4L, Globulin 2.9, Albumin/Globulin Ratio 0.5L 05/09/19 08:54: Arterial Blood pH 7.423, Arterial Blood Partial Pressure CO2 28.2L, Arterial Blood Partial Pressure O2 104.1H, Arterial Blood HCO3 18.0L, Arterial Blood Oxygen Saturation 97.4, Arterial Blood Base Excess -5.4L, Silas Test Positive Height (Feet): 5 Height (Inches): 7.00 Weight (Pounds): 120 General Appearance: lethargic EENT: normal ENT inspection Neck: normal alignment Cardiovascular: normal peripheral pulses, normal rate, regular rhythm Respiratory/Chest: chest wall non-tender, lungs clear, normal breath sounds Abdomen: normal bowel sounds, non tender, soft Extremities: normal inspection Edema: no edema noted Arm (L), no edema noted Arm (R), no edema noted Leg (L), no edema noted Leg (R), no edema noted Pedal (L), no edema noted Pedal (R), no edema noted Generalized Neurologic: motor weakness Skin: normal pigmentation, warm/dry Cosme Chong DO May 09, 2019 14:53
--- NOTE | 2019-05-09 15:46 | Surgery Progress Note ---
Surgery Progress Note Subjective Additional Comments patient seen and examined at bedside labs noted exam unchanged dressings being changed labs noted Objective Last 24 Hour Vital Signs Date Time Temp Pulse Resp B/P (MAP) Pulse Ox O2 Delivery O2 Flow Rate FiO2 05/09/19 14:38 72 16 30 05/09/19 14:00 74 16 106/37 (60) 98 05/09/19 13:00 74 16 100/38 (58) 98 05/09/19 12:52 75 16 30 05/09/19 12:02 102/58 05/09/19 12:00 97.8 69 16 97/38 (57) 98 05/09/19 12:00 Mechanical Ventilator 05/09/19 12:00 30 05/09/19 12:00 68 05/09/19 11:00 73 16 108/38 (61) 99 05/09/19 10:38 75 17 30 05/09/19 10:00 73 16 110/41 (64) 100 05/09/19 09:46 30 05/09/19 09:37 30 30 05/09/19 09:37 99 05/09/19 09:00 69 16 116/42 (66) 100 05/09/19 08:57 79 17 30 05/09/19 08:00 68 05/09/19 08:00 Mechanical Ventilator 05/09/19 08:00 98.1 65 16 104/45 (64) 100 05/09/19 08:00 30 05/09/19 07:00 66 16 108/62 (77) 99 05/09/19 06:57 71 16 30 05/09/19 06:00 68 16 107/39 (61) 100 05/09/19 05:00 64 16 100/39 (59) 98 05/09/19 05:00 69 17 30 05/09/19 04:00 30 05/09/19 04:00 97.6 64 16 113/38 (63) 100 05/09/19 04:00 Mechanical Ventilator 05/09/19 03:49 64 05/09/19 03:24 58 16 30 05/09/19 03:00 63 16 100/60 (73) 100 05/09/19 02:00 71 17 112/42 (65) 99 05/09/19 01:29 68 16 30 05/09/19 01:00 60 16 107/38 (61) 99 05/09/19 00:00 98.7 66 16 111/52 (71) 99 05/09/19 00:00 30 05/09/19 00:00 Mechanical Ventilator 05/08/19 23:47 66 05/08/19 23:00 66 16 116/46 (69) 98 05/08/19 22:48 61 16 30 05/08/19 22:00 63 16 120/41 (67) 100 05/08/19 21:00 63 16 115/45 (68) 100 05/08/19 21:00 60 16 30 05/08/19 20:00 97.8 65 16 122/48 (72) 99 05/08/19 20:00 30 05/08/19 20:00 Mechanical Ventilator 05/08/19 19:27 67 05/08/19 19:04 62 16 30 05/08/19 19:00 65 16 126/45 (72) 99 05/08/19 18:00 68 17 117/33 (61) 100 05/08/19 17:30 66 17 111/33 (59) 100 05/08/19 17:13 69 20 30 05/08/19 17:00 68 17 109/45 (66) 97 05/08/19 16:00 30 05/08/19 16:00 71 05/08/19 16:00 Mechanical Ventilator 05/08/19 16:00 99.2 68 18 138/51 (80) 100 I&O Intake and Output 05/08/19 05/09/19 19:00 07:00 Intake Total 650 ml 700 ml Output Total 910 ml 875 ml Balance -260 ml -175 ml Free Water 50 ml IV Total 180 ml 110 ml Tube Feeding 360 ml 560 ml Other 60 ml 30 ml Output Urine Total 910 ml 875 ml # Bowel Movements 2 4 Dressing: saturated Wound: other Drains: other Cardiovascular: RSR Respiratory: decreased breath sounds Abdomen: soft, present bowel sounds Extremities: no cyanosis Laboratory Tests Test 05/09/19 03:15 05/09/19 08:54 White Blood Count 8.3 K/UL (4.8-10.8) Red Blood Count 3.34 M/UL (4.20-5.40) L Hemoglobin 9.7 G/DL (12.0-16.0) L Hematocrit 29.8 % (37.0-47.0) L Mean Corpuscular Volume 89 FL (80-99) Mean Corpuscular Hemoglobin 29.1 PG (27.0-31.0) Mean Corpuscular Hemoglobin Concent 32.6 G/DL (32.0-36.0) Red Cell Distribution Width 15.4 % (11.6-14.8) H Platelet Count 217 K/UL (150-450) Mean Platelet Volume 5.7 FL (6.5-10.1) L Neutrophils (%) (Auto) 79.2 % (45.0-75.0) H Lymphocytes (%) (Auto) 13.7 % (20.0-45.0) L Monocytes (%) (Auto) 3.9 % (1.0-10.0) Eosinophils (%) (Auto) 2.6 % (0.0-3.0) Basophils (%) (Auto) 0.6 % (0.0-2.0) Sodium Level 139 MMOL/L (136-145) Potassium Level 4.7 MMOL/L (3.5-5.1) Chloride Level 112 MMOL/L (98-107) H Carbon Dioxide Level 19 MMOL/L (21-32) L Anion Gap 8 mmol/L (5-15) Blood Urea Nitrogen 29 mg/dL (7-18) H Creatinine 1.2 MG/DL (0.55-1.30) Estimat Glomerular Filtration Rate mL/min (>60) Glucose Level 121 MG/DL (74-106) H Uric Acid 4.7 MG/DL (2.6-7.2) Calcium Level 9.1 MG/DL (8.5-10.1) Phosphorus Level 2.5 MG/DL (2.5-4.9) Magnesium Level 1.7 MG/DL (1.8-2.4) L Total Bilirubin 0.3 MG/DL (0.2-1.0) Aspartate Amino Transf (AST/SGOT) 46 U/L (15-37) H Alanine Aminotransferase (ALT/SGPT) 65 U/L (12-78) Alkaline Phosphatase 329 U/L (46-116) H Total Protein 4.3 G/DL (6.4-8.2) L Albumin 1.4 G/DL (3.4-5.0) L Globulin 2.9 g/dL Albumin/Globulin Ratio 0.5 (1.0-2.7) L Arterial Blood pH 7.423 (7.350-7.450) Arterial Blood Partial Pressure CO2 28.2 mmHg (35.0-45.0) L Arterial Blood Partial Pressure O2 104.1 mmHg (75.0-100.0) H Arterial Blood HCO3 18.0 mmol/L (22.0-26.0) L Arterial Blood Oxygen Saturation 97.4 % (95-100) Arterial Blood Base Excess -5.4 (-2-2) L Silas Test Positive Plan Problems: (1) Sacral decubitus ulcer, stage III Assessment & Plan: Patient presented on admission with multiple pressure injuries noted. Patient seen by team during admission and I was called on to evaluate patient Full Thickness Stage III Pressure injury sacrum. Base of wound 100% necrotic with red margins(L)2.5cm x (W)2.7cm with surrounding maroon and indurated borders (L)7.5cm x (W)8.5cm. Periwound soft and with edema. Maroon and indurated area noted to R buttocks. Non-blanching erythema noted to R trochanteric.(L)6.5cm x (W)7.5cm. Elongated wound noted to medial/posterior R thigh(L)0.6cm x (W)5.2cm. L heel boggy with non-blanching erythema. Non-Blanchable erythema R heel without fluctuance. Recommendations: Wash wounds daily with NS or soap/water Apply therahoney or hydrogel impregnated gauze to sacral wound, cover with foam dressing daily and prn saturation Will need to monitor for incontinence as she is having loose stools and need diligent care as can worsen wound Apply foam dressing to R hip, change q3 days bilateral heel foam dressings APM/SOILA Mattress overlay. Reposition at least every 2hours or as tolerated. Off-load heels with Pillow. nutritional optimization will follow with recs thank you (2) Malnutrition Assessment & Plan: DAILY ESTIMATED NEEDS: Needs based on Critical care, wounds; 48.6kg 22- 30 kcals/kg 3917-9712 total kcals 1.25-2 g protein/kg 61-97 g total protein 25-30 mL/kg 4212-6055 total fluid mLs NUTRITION DIAGNOSIS: 1) Increased kcal and pro needs r/t wound healing AEB pt adm w/ multiple wounds, including full thickness sacral wounds, refer to WC eval. 2) Swallowing difficulty r/t respiratory status AEB pt is intubated, Peg dep, TF at low rate for elev residuals. CURRENT TF:Glucerna 1.2 @50-> now @20ml/hr ENTERAL NUTRITION RECOMMENDATIONS: VITAL AF 1.2 @ 45mL/hr x 24 hrs to provide 1080mL, 1296kcal, 81g pro, 876mL free H2O With continued elev residuals, rec TF change to VITAL 1.2 w/ goal rate of 45ml/ hr. - Start @15ml/hr until tolerated w/ no to little residuals. Advance 10ml/hr q4-6 hrs to goal rate TOLERATED. - Flush per MD. HOB over 30 degrees ADDITIONAL RECOMMENDATIONS: 1) Per SNF: 107 lbs, 60 inches 2) When pt is stable, see TF recs above. 3) Wound care: Add TANYA BID + Vit C 250mg BID -> Hold Tanya BID until TF is better tolerated w/ low to no residuals 4) Monitor lytes-> replete as needed 5) With continued elevated blood glucose, rec long acting insulin Monitor BG w/ active TF order (3) Failure to thrive in adult (4) Feeding by G-tube (5) Septic shock Assessment & Plan: labs noted exam as above wean vent as tolerated nutritional optimization trend labs abx as per ID will follow with recs thank you (6) Dehydration Ralph Roth May 09, 2019 15:46
--- NOTE | 2019-05-09 15:49 | Infectious Diseases Prog Note ---
Assessment/Plan Assessment/Plan Assessment/Recommendation: Tmax 104.2, SP New leukocytosis after steroid given, SP Lactate 3.4>1.6>2.4>3.3>3.8>1.0 UTI? 05/01 UA 10-15 WBC 05/01 UCx: MDR Klebsiella(R-imipenem, gent, cipro, nitrofurantoin, zosyn, bactrim. I-amikacin) PNA? 05/01 sputum cx: MRSA, Provid[place](S-amikacin, cefepime, ceftazidime, cipro, erta, zosyn), normal resp magdalena 05/01 CXR: Right mainstem intubation. Suggest pulling the tube back about 3 cm. Atelectasis of the left lower lobe. Superimposed pneumonia or pleural effusion is not excluded. CHF suspected. 05/01 CXR: Endotracheal tube is 2 cm above the guille in good position. A left subclavian line is also present in good position of the tip projected over the SVC. Pulmonary edema again demonstrated. There is hazy opacity at the left lung base which is probably a pleural effusion. 05/02 CXR: Over one day, interval improvement of previously demonstrated left- sided pleural fluid and interstitial and airspace edema. Parenchymal disease is unchanged on the right. 05/03 CXR: Stable satisfactory positions of endotracheal tube, left arm PICC. Hazy opacities in the right mid and lower lung are probably unchanged. There is a small amount of hazy opacity at the left lung base persisting as well. The heart is normal in size. Allowing for technical differences, findings are overall unchanged r/o bacteremia 05/01 BCx: ngtd MRSA negative VRE negative CRE negative HTN COPD Schizophrenia DM G tube Parkinson CKD Protein calorie malnutrition Dementia Psychosis Gastritis Functional paraplegia Plan: Meropenem #5/7 Linezolid #5/7 11/ DC Cefepime #1 05/04 SP Colistin #1 05/04 DC Ertapenem, Amikacin, Vancomycin #3 05/01 SP Zosyn #1 steroid per pulm f/u bcx f/u ucx f/u sputum cx aspiration precaution ETT management skin care oral care C diff if diarrhea persists Thank you for this consult. [facility] will continue to follow the patient with you. Subjective Allergies: Coded Allergies: No Known Allergies (Unverified , 05/01/19) Subjective Afebrile. no pressors. FiO2 30%/5. failed weaning again eyes open but does not track Objective Vital Signs Last 24 Hour Vital Signs Date Time Temp Pulse Resp B/P (MAP) Pulse Ox O2 Delivery O2 Flow Rate FiO2 05/09/19 15:00 75 15 106/40 (62) 98 05/09/19 14:38 72 16 30 05/09/19 14:00 74 16 106/37 (60) 98 05/09/19 13:00 74 16 100/38 (58) 98 05/09/19 12:52 75 16 30 05/09/19 12:02 102/58 05/09/19 12:00 97.8 69 16 97/38 (57) 98 05/09/19 12:00 Mechanical Ventilator 05/09/19 12:00 30 05/09/19 12:00 68 05/09/19 11:00 73 16 108/38 (61) 99 05/09/19 10:38 75 17 30 05/09/19 10:00 73 16 110/41 (64) 100 05/09/19 09:46 30 05/09/19 09:37 30 30 05/09/19 09:37 99 05/09/19 09:00 69 16 116/42 (66) 100 05/09/19 08:57 79 17 30 05/09/19 08:00 68 05/09/19 08:00 Mechanical Ventilator 05/09/19 08:00 98.1 65 16 104/45 (64) 100 05/09/19 08:00 30 05/09/19 07:00 66 16 108/62 (77) 99 05/09/19 06:57 71 16 30 05/09/19 06:00 68 16 107/39 (61) 100 05/09/19 05:00 64 16 100/39 (59) 98 05/09/19 05:00 69 17 30 05/09/19 04:00 30 05/09/19 04:00 97.6 64 16 113/38 (63) 100 05/09/19 04:00 Mechanical Ventilator 05/09/19 03:49 64 05/09/19 03:24 58 16 30 05/09/19 03:00 63 16 100/60 (73) 100 05/09/19 02:00 71 17 112/42 (65) 99 05/09/19 01:29 68 16 30 05/09/19 01:00 60 16 107/38 (61) 99 05/09/19 00:00 98.7 66 16 111/52 (71) 99 05/09/19 00:00 30 05/09/19 00:00 Mechanical Ventilator 05/08/19 23:47 66 05/08/19 23:00 66 16 116/46 (69) 98 05/08/19 22:48 61 16 30 05/08/19 22:00 63 16 120/41 (67) 100 05/08/19 21:00 63 16 115/45 (68) 100 05/08/19 21:00 60 16 30 05/08/19 20:00 97.8 65 16 122/48 (72) 99 05/08/19 20:00 30 05/08/19 20:00 Mechanical Ventilator 05/08/19 19:27 67 05/08/19 19:04 62 16 30 05/08/19 19:00 65 16 126/45 (72) 99 05/08/19 18:00 68 17 117/33 (61) 100 05/08/19 17:30 66 17 111/33 (59) 100 05/08/19 17:13 69 20 30 05/08/19 17:00 68 17 109/45 (66) 97 05/08/19 16:00 30 05/08/19 16:00 71 05/08/19 16:00 Mechanical Ventilator 05/08/19 16:00 99.2 68 18 138/51 (80) 100 Height (Feet): 5 Height (Inches): 7.00 Weight (Pounds): 120 Objective VS: Tmax 104.2 Gen: NAD. twitching HEENT: ETT CV: RRR Resp: RRR. coarse. no wheezes Abd: soft. nondistended. normoactive Bs+ Neuro: not awake Laboratory Tests Test 05/09/19 03:15 05/09/19 08:54 White Blood Count 8.3 K/UL (4.8-10.8) Red Blood Count 3.34 M/UL (4.20-5.40) L Hemoglobin 9.7 G/DL (12.0-16.0) L Hematocrit 29.8 % (37.0-47.0) L Mean Corpuscular Volume 89 FL (80-99) Mean Corpuscular Hemoglobin 29.1 PG (27.0-31.0) Mean Corpuscular Hemoglobin Concent 32.6 G/DL (32.0-36.0) Red Cell Distribution Width 15.4 % (11.6-14.8) H Platelet Count 217 K/UL (150-450) Mean Platelet Volume 5.7 FL (6.5-10.1) L Neutrophils (%) (Auto) 79.2 % (45.0-75.0) H Lymphocytes (%) (Auto) 13.7 % (20.0-45.0) L Monocytes (%) (Auto) 3.9 % (1.0-10.0) Eosinophils (%) (Auto) 2.6 % (0.0-3.0) Basophils (%) (Auto) 0.6 % (0.0-2.0) Sodium Level 139 MMOL/L (136-145) Potassium Level 4.7 MMOL/L (3.5-5.1) Chloride Level 112 MMOL/L (98-107) H Carbon Dioxide Level 19 MMOL/L (21-32) L Anion Gap 8 mmol/L (5-15) Blood Urea Nitrogen 29 mg/dL (7-18) H Creatinine 1.2 MG/DL (0.55-1.30) Estimat Glomerular Filtration Rate mL/min (>60) Glucose Level 121 MG/DL (74-106) H Uric Acid 4.7 MG/DL (2.6-7.2) Calcium Level 9.1 MG/DL (8.5-10.1) Phosphorus Level 2.5 MG/DL (2.5-4.9) Magnesium Level 1.7 MG/DL (1.8-2.4) L Total Bilirubin 0.3 MG/DL (0.2-1.0) Aspartate Amino Transf (AST/SGOT) 46 U/L (15-37) H Alanine Aminotransferase (ALT/SGPT) 65 U/L (12-78) Alkaline Phosphatase 329 U/L (46-116) H Total Protein 4.3 G/DL (6.4-8.2) L Albumin 1.4 G/DL (3.4-5.0) L Globulin 2.9 g/dL Albumin/Globulin Ratio 0.5 (1.0-2.7) L Arterial Blood pH 7.423 (7.350-7.450) Arterial Blood Partial Pressure CO2 28.2 mmHg (35.0-45.0) L Arterial Blood Partial Pressure O2 104.1 mmHg (75.0-100.0) H Arterial Blood HCO3 18.0 mmol/L (22.0-26.0) L Arterial Blood Oxygen Saturation 97.4 % (95-100) Arterial Blood Base Excess -5.4 (-2-2) L Silas Test Positive Current Medications Medications (Trade) Dose Ordered Sig/Vane Route PRN Reason Start Time Stop Time Status Last Admin Dose Admin Acetaminophen (Tylenol) 650 mg Q4H PRN NG fever 05/04/19 09:30 05/31/19 12:44 05/04/19 10:00 Calcitonin [place] (Miacalcin) 1 sprays DAILY NASAL 05/04/19 09:00 06/03/19 08:59 05/09/19 09:04 Chlorhexidine Gluconate (Shanice-Hex 2%) 1 applic DAILY@2000 TOPIC 05/01/19 20:00 05/31/19 19:59 05/08/19 20:21 Dextrose (Dextrose 50%) 25 ml Q30M PRN IV Hypoglycemia 05/02/19 06:30 06/01/19 06:29 Dextrose (Dextrose 50%) 50 ml Q30M PRN IV Hypoglycemia 05/02/19 06:30 06/01/19 06:29 Erythromycin (Joey-Ped) 250 mg Q8HR GT 05/05/19 14:00 05/12/19 13:59 05/09/19 14:40 Heparin Sodium (Porcine) (Heparin 5000 units/ml) 5,000 units EVERY 12 HOURS SUBQ 05/01/19 21:00 05/31/19 20:59 05/09/19 08:59 Insulin Aspart (NovoLOG) EVERY 6 HOURS SUBQ 05/02/19 07:30 06/01/19 07:29 05/09/19 12:02 Linezolid (Zyvox) 600 mg EVERY 12 HOURS ORAL 05/04/19 21:00 05/09/19 23:59 05/09/19 08:54 Meropenem 1 gm/ Sodium Chloride 55 ml @ 110 mls/hr Q8HR IVPB 05/05/19 22:00 11/13/19 21:59 05/09/19 14:41 Midodrine (Pro-Amatine) 5 mg THREE TIMES A DAY NG 05/06/19 13:00 06/04/19 12:59 05/09/19 14:40 Norepinephrine Bitartrate 4 mg/ Dextrose 254 ml @ 0 mls/hr Q24H IV 05/01/19 12:45 05/31/19 12:44 05/04/19 18:15 Ondansetron HCl (Zofran) 4 mg Q6H PRN IVP Nausea & Vomiting 05/01/19 12:45 05/31/19 12:44 Pantoprazole (Protonix) 40 mg Q12HR IV 05/01/19 21:00 06/01/19 08:59 05/09/19 08:55 Potassium Chloride (K-Dur) 20 meq TWICE A DAY NG 05/04/19 09:18 06/03/19 09:17 05/09/19 08:54 Risperidone (RisperDAL) 0.25 mg QHS PRN GT Agitation 05/02/19 07:30 06/01/19 07:29 Jennifer Palm MD May 09, 2019 15:49
--- NOTE | 2019-05-09 16:06 | NUR ---
NURSE NOTES: No significant change in condition at this time.Seen by Dr Castellano, will follow up with new order.Turned and repositioned for skin management.HOB elevated to prevent aspiration.Will continue to monitor
--- NOTE | 2019-05-09 17:28 | Cardiology Progress Note ---
Assessment/Plan Assessment/Plan 1. Acute febrile illness, sepsis. 2. Hypotension. 3. Possible pneumonia/ respiratory failure acute 4. Urinary tract infection? 5. Hypernatremia. 6. Renal insufficiency and failure. 7. Dementia. 8. G-tube placement. 9. anemia 10. thrombocytopenia 11. lactic acidosis 12. hyperglycemia improved pulm secretion per staff iv abx vent support failed weaning again 05/09 plt normal abn trop noted demand related cxr personally reviewed looks ok d/w rn pulm toilette echo lv fxn normal cxr personally reviewed tele personally reviewed more awake today Subjective ROS Limited/Unobtainable: Yes Objective Last 24 Hour Vital Signs Date Time Temp Pulse Resp B/P (MAP) Pulse Ox O2 Delivery O2 Flow Rate FiO2 05/09/19 16:58 83 19 30 05/09/19 15:00 75 15 106/40 (62) 98 05/09/19 14:38 72 16 30 05/09/19 14:00 74 16 106/37 (60) 98 05/09/19 13:00 74 16 100/38 (58) 98 05/09/19 12:52 75 16 30 05/09/19 12:02 102/58 05/09/19 12:00 97.8 69 16 97/38 (57) 98 05/09/19 12:00 Mechanical Ventilator 05/09/19 12:00 30 05/09/19 12:00 68 05/09/19 11:00 73 16 108/38 (61) 99 05/09/19 10:38 75 17 30 05/09/19 10:00 73 16 110/41 (64) 100 05/09/19 09:46 30 05/09/19 09:37 30 30 05/09/19 09:37 99 05/09/19 09:00 69 16 116/42 (66) 100 05/09/19 08:57 79 17 30 05/09/19 08:00 68 05/09/19 08:00 Mechanical Ventilator 05/09/19 08:00 98.1 65 16 104/45 (64) 100 05/09/19 08:00 30 05/09/19 07:00 66 16 108/62 (77) 99 05/09/19 06:57 71 16 30 05/09/19 06:00 68 16 107/39 (61) 100 05/09/19 05:00 64 16 100/39 (59) 98 05/09/19 05:00 69 17 30 05/09/19 04:00 30 05/09/19 04:00 97.6 64 16 113/38 (63) 100 05/09/19 04:00 Mechanical Ventilator 05/09/19 03:49 64 05/09/19 03:24 58 16 30 05/09/19 03:00 63 16 100/60 (73) 100 05/09/19 02:00 71 17 112/42 (65) 99 05/09/19 01:29 68 16 30 05/09/19 01:00 60 16 107/38 (61) 99 05/09/19 00:00 98.7 66 16 111/52 (71) 99 05/09/19 00:00 30 05/09/19 00:00 Mechanical Ventilator 05/08/19 23:47 66 05/08/19 23:00 66 16 116/46 (69) 98 05/08/19 22:48 61 16 30 05/08/19 22:00 63 16 120/41 (67) 100 05/08/19 21:00 63 16 115/45 (68) 100 05/08/19 21:00 60 16 30 05/08/19 20:00 97.8 65 16 122/48 (72) 99 05/08/19 20:00 30 05/08/19 20:00 Mechanical Ventilator 05/08/19 19:27 67 05/08/19 19:04 62 16 30 05/08/19 19:00 65 16 126/45 (72) 99 05/08/19 18:00 68 17 117/33 (61) 100 05/08/19 17:30 66 17 111/33 (59) 100 General Appearance: alert, on vent, patient on isolation Neck: supple Cardiovascular: normal rate Respiratory/Chest: lungs clear Abdomen: normal bowel sounds, non tender, soft Extremities: no swelling Intake and Output 05/08/19 05/09/19 19:00 07:00 Intake Total 650 ml 700 ml Output Total 910 ml 875 ml Balance -260 ml -175 ml Free Water 50 ml IV Total 180 ml 110 ml Tube Feeding 360 ml 560 ml Other 60 ml 30 ml Output Urine Total 910 ml 875 ml # Bowel Movements 2 4 Laboratory Tests Test 05/09/19 03:15 05/09/19 08:54 White Blood Count 8.3 K/UL (4.8-10.8) Red Blood Count 3.34 M/UL (4.20-5.40) L Hemoglobin 9.7 G/DL (12.0-16.0) L Hematocrit 29.8 % (37.0-47.0) L Mean Corpuscular Volume 89 FL (80-99) Mean Corpuscular Hemoglobin 29.1 PG (27.0-31.0) Mean Corpuscular Hemoglobin Concent 32.6 G/DL (32.0-36.0) Red Cell Distribution Width 15.4 % (11.6-14.8) H Platelet Count 217 K/UL (150-450) Mean Platelet Volume 5.7 FL (6.5-10.1) L Neutrophils (%) (Auto) 79.2 % (45.0-75.0) H Lymphocytes (%) (Auto) 13.7 % (20.0-45.0) L Monocytes (%) (Auto) 3.9 % (1.0-10.0) Eosinophils (%) (Auto) 2.6 % (0.0-3.0) Basophils (%) (Auto) 0.6 % (0.0-2.0) Sodium Level 139 MMOL/L (136-145) Potassium Level 4.7 MMOL/L (3.5-5.1) Chloride Level 112 MMOL/L (98-107) H Carbon Dioxide Level 19 MMOL/L (21-32) L Anion Gap 8 mmol/L (5-15) Blood Urea Nitrogen 29 mg/dL (7-18) H Creatinine 1.2 MG/DL (0.55-1.30) Estimat Glomerular Filtration Rate mL/min (>60) Glucose Level 121 MG/DL (74-106) H Uric Acid 4.7 MG/DL (2.6-7.2) Calcium Level 9.1 MG/DL (8.5-10.1) Phosphorus Level 2.5 MG/DL (2.5-4.9) Magnesium Level 1.7 MG/DL (1.8-2.4) L Total Bilirubin 0.3 MG/DL (0.2-1.0) Aspartate Amino Transf (AST/SGOT) 46 U/L (15-37) H Alanine Aminotransferase (ALT/SGPT) 65 U/L (12-78) Alkaline Phosphatase 329 U/L (46-116) H Total Protein 4.3 G/DL (6.4-8.2) L Albumin 1.4 G/DL (3.4-5.0) L Globulin 2.9 g/dL Albumin/Globulin Ratio 0.5 (1.0-2.7) L Arterial Blood pH 7.423 (7.350-7.450) Arterial Blood Partial Pressure CO2 28.2 mmHg (35.0-45.0) L Arterial Blood Partial Pressure O2 104.1 mmHg (75.0-100.0) H Arterial Blood HCO3 18.0 mmol/L (22.0-26.0) L Arterial Blood Oxygen Saturation 97.4 % (95-100) Arterial Blood Base Excess -5.4 (-2-2) L Silas Test Positive Objective Current Medications Medications (Trade) Dose Ordered Sig/Vane Route PRN Reason Start Time Stop Time Status Last Admin Dose Admin Acetaminophen (Tylenol) 650 mg Q4H PRN ORAL fever 05/01/19 12:45 05/31/19 12:44 Albuterol/ Ipratropium (Albuterol/ Ipratropium) 3 ml Q4H PRN HHN Shortness of Breath 05/01/19 12:45 05/06/19 12:44 Amikacin Protocol (Amikacin pharmacy to dose) 1 ea DAILY PRN MISC . 05/01/19 12:45 05/31/19 12:44 Amikacin Sulfate 500 mg/Sodium Chloride 112 ml @ 112 mls/hr Q24H IV 05/01/19 18:00 05/08/19 17:59 05/01/19 18:04 Chlorhexidine Gluconate (Shanice-Hex 2%) 1 applic DAILY@2000 TOPIC 05/01/19 20:00 05/31/19 19:59 05/01/19 19:48 Dextrose (Dextrose 50%) 25 ml Q30M PRN IV Hypoglycemia 05/02/19 06:30 06/01/19 06:29 Dextrose (Dextrose 50%) 50 ml Q30M PRN IV Hypoglycemia 05/02/19 06:30 06/01/19 06:29 Ertapenem 0.5 gm/ Sodium Chloride 55 ml @ 110 mls/hr Q24H IV 05/01/19 21:00 05/06/19 20:59 05/01/19 21:15 Heparin Sodium (Porcine) (Heparin 5000 units/ml) 5,000 units EVERY 12 HOURS SUBQ 05/01/19 21:00 05/31/19 20:59 05/01/19 21:17 Insulin Aspart (NovoLOG) EVERY 6 HOURS SUBQ 05/02/19 07:30 06/01/19 07:29 05/02/19 08:42 Lorazepam (Ativan 2mg/ml 1ml) 2 mg Q2H PRN IV For Anxiety 05/01/19 12:45 05/08/19 12:44 05/02/19 11:48 Lorazepam (Ativan) 0.5 mg Q6H PRN ORAL For Anxiety 05/02/19 07:30 05/09/19 07:29 Magnesium Sulfate 100 ml @ 100 mls/hr Q1H IVPB 05/02/19 10:00 05/02/19 13:59 05/02/19 11:03 Morphine Sulfate (Morphine Sulfate) 4 mg Q4H PRN IVP Severe Pain (Pain Scale 7-10) 05/01/19 12:45 05/08/19 12:44 Norepinephrine Bitartrate 4 mg/ Dextrose 254 ml @ 0 mls/hr Q24H IV 05/01/19 12:45 05/31/19 12:44 05/01/19 15:45 Ondansetron HCl (Zofran) 4 mg Q6H PRN IVP Nausea & Vomiting 05/01/19 12:45 05/31/19 12:44 Pantoprazole (Protonix) 40 mg Q12HR IV 05/01/19 21:00 06/01/19 08:59 05/02/19 08:29 Potassium Phosphate 20 mm/ Sodium Chloride 281.6667 ml @ 46.944 m... ONCE ONCE IV 05/02/19 11:00 05/02/19 16:59 05/02/19 11:02 Potassium Chloride 100 ml @ 100 mls/hr Q1HR IVPB 05/02/19 10:00 05/02/19 13:59 05/02/19 11:02 Risperidone (RisperDAL) 0.25 mg QHS PRN GT Agitation 05/02/19 07:30 06/01/19 07:29 Sodium Chloride 1,000 ml @ 75 mls/hr [id number] IV 05/02/19 10:39 06/01/19 10:38 05/02/19 11:02 Vancomycin HCl (Vanco rx to dose) 1 ea DAILY PRN MISC . 05/01/19 12:45 05/31/19 12:44 Martin Sarmiento MD May 09, 2019 17:28
--- NOTE | 2019-05-09 17:36 | Consultation ---
History of Present Illness General Date patient seen: May 09, 2019 Time patient seen: 17:31 Chief Complaint: Dyspnea/Respdistress Referring physician: RAYMOND BERNABE Reason for Consultation: Sacral pressure ulcer Present Illness HPI Asked to evaluate this patient with a sacral pressure ulcer. She was admitted from SNF last week with respiratory distress and lethargy. She was intubated and taken to ICU. She was noted to have a pressure ulcer of the sacrum. It is unclear how long she has had the ulcer. She is currently intubated on feeding tube. Allergies: Coded Allergies: No Known Allergies (Unverified , 05/01/19) Medication History Scheduled Ascorbic Acid* (Vitamin C*), 500 MG GT DAILY, (Reported) Bisacodyl* (Dulcolax*), 10 MG GT DAILY, (Reported) Docusate Sodium* (Colace*), 100 MG GT DAILY, (Reported) Ferrous Sulfate* (Ferrous Sulfate*), 325 MG GT DAILY, (Reported) Furosemide* (Lasix*), 40 MG GT DAILY, (Reported) Insulin Regular, Human* (Novolin R*), 0 SUBQ .SLIDING SCALE, (Reported) Multivitamin Liquid* (Multi-Delyn*), 5 ML GT DAILY, (Reported) Olanzapine* (Zyprexa*), 5 MG GT DAILY, (Reported) Pantoprazole* (Protonix*), 40 MG ORAL DAILY, (Reported) Prednisone* (Prednisone*), 40 MG GT BID, (Reported) Risperidone* (Risperdal*), 1 MG GT DAILY, (Reported) Zinc Sulfate (Zinc Sulfate*), 220 MG GT DAILY, (Reported) Scheduled PRN Acetaminophen* (Acetaminophen 325MG Tablet*), 650 MG GT Q4H PRN for Pain Scale ( 3-5), (Reported) Clonidine Hcl* (Catapres*), 0.1 MG ORAL EVERY 6 HOURS PRN for For High Blood Pressure, (Reported) Ipratropium/Albuterol Sulfate (DuoNeb 0.5-3(2.5)mg/3ml), 3 ML HHN EVERY 4 HOURS PRN for Shortness of Breath, (Reported) Magnesium Hydroxide* (Milk Of Magnesia*), Unknown Dose GT for Constipation, ( Reported) Miscellaneous Medications Glucagon HCl (Glucagon HCl), 1 MG IJ, (Reported) Sennosides (Senna), 8.6 MG GT, (Reported) Discontinued Medications Albuterol Sulfate (Albuterol Sulfate), 2.5 MG IH, (Reported) Discontinued Reason: Pt stopped taking med Ipratropium [place] 0.5MG/2.5ML (Ipratropium [place] 0.5MG/2.5ML), 0.5 MG HHN Q6H PRN for Shortness of Breath, (Reported) Discontinued Reason: Prescription changed Patient History Limited by: medical condition History Provided By: Medical Record Healthcare decision maker Jas Nicholson ([facility]) Resuscitation status Full Code Advanced Directive on File No Past Medical/Surgical History Past Medical/Surgical History: (1) Anemia (2) COPD (chronic obstructive pulmonary disease) (3) Diabetes mellitus (4) Schizophrenia (5) Pulmonary congestion (6) Acute respiratory failure (7) Acute kidney injury (8) NSTEMI (non-ST elevated myocardial infarction) Physical Exam General Appearance: lethargic Lines, tubes and drains: peripheral, endotracheal tube, gtube, kwon cath Extremities: moderate edema Skin Exam: other - Stage 3 sacral pressure ulcer with fibrotic debris at the base. Periskin in fair condition. >25% grasnular base. Measures 2.5x4x.3 cm. Musculoskeletal: normal muscle bulk Last 24 Hour Vital Signs Date Time Temp Pulse Resp B/P (MAP) Pulse Ox O2 Delivery O2 Flow Rate FiO2 05/09/19 16:58 83 19 30 05/09/19 15:00 75 15 106/40 (62) 98 05/09/19 14:38 72 16 30 05/09/19 14:00 74 16 106/37 (60) 98 05/09/19 13:00 74 16 100/38 (58) 98 05/09/19 12:52 75 16 30 05/09/19 12:02 102/58 05/09/19 12:00 97.8 69 16 97/38 (57) 98 05/09/19 12:00 Mechanical Ventilator 05/09/19 12:00 30 05/09/19 12:00 68 05/09/19 11:00 73 16 108/38 (61) 99 05/09/19 10:38 75 17 30 05/09/19 10:00 73 16 110/41 (64) 100 05/09/19 09:46 30 05/09/19 09:37 30 30 05/09/19 09:37 99 05/09/19 09:00 69 16 116/42 (66) 100 05/09/19 08:57 79 17 30 05/09/19 08:00 68 05/09/19 08:00 Mechanical Ventilator 05/09/19 08:00 98.1 65 16 104/45 (64) 100 05/09/19 08:00 30 05/09/19 07:00 66 16 108/62 (77) 99 05/09/19 06:57 71 16 30 05/09/19 06:00 68 16 107/39 (61) 100 05/09/19 05:00 64 16 100/39 (59) 98 05/09/19 05:00 69 17 30 05/09/19 04:00 30 05/09/19 04:00 97.6 64 16 113/38 (63) 100 05/09/19 04:00 Mechanical Ventilator 05/09/19 03:49 64 05/09/19 03:24 58 16 30 05/09/19 03:00 63 16 100/60 (73) 100 05/09/19 02:00 71 17 112/42 (65) 99 05/09/19 01:29 68 16 30 05/09/19 01:00 60 16 107/38 (61) 99 05/09/19 00:00 98.7 66 16 111/52 (71) 99 05/09/19 00:00 30 05/09/19 00:00 Mechanical Ventilator 05/08/19 23:47 66 05/08/19 23:00 66 16 116/46 (69) 98 05/08/19 22:48 61 16 30 05/08/19 22:00 63 16 120/41 (67) 100 05/08/19 21:00 63 16 115/45 (68) 100 05/08/19 21:00 60 16 30 05/08/19 20:00 97.8 65 16 122/48 (72) 99 05/08/19 20:00 30 05/08/19 20:00 Mechanical Ventilator 05/08/19 19:27 67 05/08/19 19:04 62 16 30 05/08/19 19:00 65 16 126/45 (72) 99 05/08/19 18:00 68 17 117/33 (61) 100 Intake and Output 11/11/19 11/12/19 19:00 07:00 Intake Total 650 ml 700 ml Output Total 910 ml 875 ml Balance -260 ml -175 ml Free Water 50 ml IV Total 180 ml 110 ml Tube Feeding 360 ml 560 ml Other 60 ml 30 ml Output Urine Total 910 ml 875 ml # Bowel Movements 2 4 Laboratory Tests Test 05/09/19 03:15 05/09/19 08:54 White Blood Count 8.3 K/UL (4.8-10.8) Red Blood Count 3.34 M/UL (4.20-5.40) L Hemoglobin 9.7 G/DL (12.0-16.0) L Hematocrit 29.8 % (37.0-47.0) L Mean Corpuscular Volume 89 FL (80-99) Mean Corpuscular Hemoglobin 29.1 PG (27.0-31.0) Mean Corpuscular Hemoglobin Concent 32.6 G/DL (32.0-36.0) Red Cell Distribution Width 15.4 % (11.6-14.8) H Platelet Count 217 K/UL (150-450) Mean Platelet Volume 5.7 FL (6.5-10.1) L Neutrophils (%) (Auto) 79.2 % (45.0-75.0) H Lymphocytes (%) (Auto) 13.7 % (20.0-45.0) L Monocytes (%) (Auto) 3.9 % (1.0-10.0) Eosinophils (%) (Auto) 2.6 % (0.0-3.0) Basophils (%) (Auto) 0.6 % (0.0-2.0) Sodium Level 139 MMOL/L (136-145) Potassium Level 4.7 MMOL/L (3.5-5.1) Chloride Level 112 MMOL/L (98-107) H Carbon Dioxide Level 19 MMOL/L (21-32) L Anion Gap 8 mmol/L (5-15) Blood Urea Nitrogen 29 mg/dL (7-18) H Creatinine 1.2 MG/DL (0.55-1.30) Estimat Glomerular Filtration Rate mL/min (>60) Glucose Level 121 MG/DL (74-106) H Uric Acid 4.7 MG/DL (2.6-7.2) Calcium Level 9.1 MG/DL (8.5-10.1) Phosphorus Level 2.5 MG/DL (2.5-4.9) Magnesium Level 1.7 MG/DL (1.8-2.4) L Total Bilirubin 0.3 MG/DL (0.2-1.0) Aspartate Amino Transf (AST/SGOT) 46 U/L (15-37) H Alanine Aminotransferase (ALT/SGPT) 65 U/L (12-78) Alkaline Phosphatase 329 U/L (46-116) H Total Protein 4.3 G/DL (6.4-8.2) L Albumin 1.4 G/DL (3.4-5.0) L Globulin 2.9 g/dL Albumin/Globulin Ratio 0.5 (1.0-2.7) L Arterial Blood pH 7.423 (7.350-7.450) Arterial Blood Partial Pressure CO2 28.2 mmHg (35.0-45.0) L Arterial Blood Partial Pressure O2 104.1 mmHg (75.0-100.0) H Arterial Blood HCO3 18.0 mmol/L (22.0-26.0) L Arterial Blood Oxygen Saturation 97.4 % (95-100) Arterial Blood Base Excess -5.4 (-2-2) L Silas Test Positive Height (Feet): 5 Height (Inches): 7.00 Weight (Pounds): 120 Medications Current Medications Medications (Trade) Dose Ordered Sig/Vane Route PRN Reason Start Time Stop Time Status Last Admin Dose Admin Acetaminophen (Tylenol) 650 mg Q4H PRN NG fever 05/04/19 09:30 05/31/19 12:44 05/04/19 10:00 Calcitonin [place] (Miacalcin) 1 sprays DAILY NASAL 05/04/19 09:00 06/03/19 08:59 05/09/19 09:04 Chlorhexidine Gluconate (Shanice-Hex 2%) 1 applic DAILY@1999 TOPIC 05/01/19 20:00 05/31/19 19:59 05/08/19 20:21 Dextrose (Dextrose 50%) 25 ml Q30M PRN IV Hypoglycemia 05/02/19 06:30 06/01/19 06:29 Dextrose (Dextrose 50%) 50 ml Q30M PRN IV Hypoglycemia 11/5/19 06:30 06/01/19 06:29 Erythromycin (Joey-Ped) 250 mg Q8HR GT 05/05/19 14:00 05/12/19 13:59 05/09/19 14:40 Heparin Sodium (Porcine) (Heparin 5000 units/ml) 5,000 units EVERY 12 HOURS SUBQ 05/01/19 21:00 05/31/19 20:59 05/09/19 08:59 Insulin Aspart (NovoLOG) EVERY 6 HOURS SUBQ 05/02/19 07:30 06/01/19 07:29 05/09/19 12:02 Linezolid (Zyvox) 600 mg EVERY 12 HOURS ORAL 05/04/19 21:00 05/09/19 23:59 05/09/19 08:54 Meropenem 1 gm/ Sodium Chloride 55 ml @ 110 mls/hr Q8HR IVPB 05/05/19 22:00 05/10/19 21:59 05/09/19 14:41 Midodrine (Pro-Amatine) 5 mg THREE TIMES A DAY NG 05/06/19 13:00 06/04/19 12:59 05/09/19 14:40 Norepinephrine Bitartrate 4 mg/ Dextrose 254 ml @ 0 mls/hr Q24H IV 05/01/19 12:45 05/31/19 12:44 05/04/19 18:15 Ondansetron HCl (Zofran) 4 mg Q6H PRN IVP Nausea & Vomiting 05/01/19 12:45 05/31/19 12:44 Pantoprazole (Protonix) 40 mg Q12HR IV 05/01/19 21:00 06/01/19 08:59 05/09/19 08:55 Potassium Chloride (K-Dur) 20 meq TWICE A DAY NG 05/04/19 09:18 06/03/19 09:17 05/09/19 08:54 Risperidone (RisperDAL) 0.25 mg QHS PRN GT Agitation 05/02/19 07:30 06/01/19 07:29 Assessment/Plan Status: stable Assessment/Plan: Patient with multiple medical issues, currently intubated. She has a stage 3 pressure ulcer of the sacrum and likely low nutrition. The ulcer is not infected. Recommend therahoney to it with offloading q2 hours. Need nutritional optimization and need to keep the area as free from excessive moisture as possible. No surgical intervention warranted at this time. Thank you. Nuno Don MD May 09, 2019 17:36
--- NOTE | 2019-05-09 18:00 | NUR ---
NURSE NOTES: Seen by Dr Beal for sacral wound ulcer,wound debrided and new order to apply therahoney and silicone pad.Pt turned and repositioned.Mouth care done and suctioned as tolerated, HOB elevated to prevent aspiration.Patient had a large BM,good pericare done.Call light within easy reach, will continue same care plan.
--- NOTE | 2019-05-09 19:01 | NUR ---
HAND-OFF: Report given to MONA Murphy.
--- NOTE | 2019-05-09 19:02 | NUR ---
NURSE NOTES: Received patient from MONA Arriaza. Will continue plan of care.
--- NOTE | 2019-05-09 20:00 | NUR ---
NURSE NOTES: Patient is comfortable, showing no signs of pain or distress. Vital signs are stable. Suctioning provided. Bed low, locked and alarm is activated. Left arm mitten on to prevent pulling. Will continue plan of care.
[2019-05-09] MEDS: Dyna-Hex 2% Top Sol 2oz TOPIC SCH (21:11)
--- NOTE | 2019-05-09 22:00 | NUR ---
NURSE NOTES: Patient is sleeping comfortably; no signs of distress. Vital signs are stable. Patient is not trying to pull on medical devices but left side mitten remains on as precaution.
[2019-05-10] VITALS (24 sets, daily range): BP systolic 99–132; BP diastolic 34–110
--- NOTE | 2019-05-10 | NUR ---
NURSE NOTES: Vital signs are stable, patient repositioned and is sleeping comfortably. TKO bags are changed. Will continue plan of care.
--- NOTE | 2019-05-10 02:00 | NUR ---
NURSE NOTES: Vital signs are stable. No signs and symptoms of pain or distress. Patient resting comfortably. Scant secretions at the moment. Will continue to monitor.
--- NOTE | 2019-05-10 04:00 | NUR ---
NURSE NOTES: Patient is awake and stable. Does not track with her eyes. Dressings reinforced. Will continue plan of care.
[2019-05-10] MEDS: Meropenem 1 GM in NS 55 ML IVPB SCH ×3 (05:11→21:45)
[2019-05-10] MEDS: Erythromycin Ethylsuccinate 200mg/5ml Susp GT SCH (05:11)
[2019-05-10] MEDS: NovoLOG Insulin Flexpen SUBQ SCH ×3 (05:12→17:07)
[2019-05-10 05:15] LABS: BASOPHILS % (AUTO) 0.8 % (0.0-2.0); EOSINOPHILS % (AUTO) 2.5 % (0.0-3.0); HEMATOCRIT 27.2 % (37.0-47.0); HEMOGLOBIN 8.9 G/DL (12.0-16.0); LYMPHOCYTES % (AUTO) 21.5 % (20.0-45.0); MEAN CORPUSCULAR VOLUME 89 FL (80-99); MONOCYTES % (AUTO) 3.5 % (1.0-10.0); NEUTROPHILS % (AUTO) 71.7 % (45.0-75.0); PLATELET COUNT 224 K/UL (150-450); RED BLOOD COUNT 3.04 M/UL (4.20-5.40); WHITE BLOOD COUNT 7.6 K/UL (4.8-10.8)
[2019-05-10 05:58] LABS: ALANINE AMINOTRANSFERASE 57 U/L (12-78); ALBUMIN 1.4 G/DL (3.4-5.0); ALBUMIN/GLOBULIN RATIO 0.5 (1.0-2.7); ALKALINE PHOSPHATASE 305 U/L (46-116); ANION GAP 8 mmol/L (5-15); ASPARTATE AMINO TRANSFERASE 41 U/L (15-37); BILIRUBIN,TOTAL 0.3 MG/DL (0.2-1.0); BLOOD UREA NITROGEN 34 mg/dL (7-18); CALCIUM 9.1 MG/DL (8.5-10.1); CARBON DIOXIDE 19 MMOL/L (21-32); CHLORIDE 109 MMOL/L (98-107); CREATININE 1.2 MG/DL (0.55-1.30); PHOSPHORUS 2.2 MG/DL (2.5-4.9); POTASSIUM 4.7 MMOL/L (3.5-5.1); SODIUM 136 MMOL/L (136-145)
--- NOTE | 2019-05-10 06:00 | NUR ---
NURSE NOTES: Vital signs stable. Patient is awake, eyes open but doesnt track and does not follow commands. Repositioned. Shows no signs of distress.
--- NOTE | 2019-05-10 07:15 | NUR ---
RESPIRATORY NOTE: Received pt on ETT 7.5@22cm lip line, secured with anchor fast, with current vent settings: AC 16-500-30%- peep 5. Pt opens eyes but unable to follow commands, respond to stimuli. No SOB or resp distress noted at this time. Alarms are set and audible, vent is plugged into the red outlet, ambu bag is at bedside. Vent circuits and suction tubing are secured and out of the way. Will continue to monitor pt.
--- NOTE | 2019-05-10 07:30 | NUR ---
NURSE NOTES: Received the patient from MONA Murphy. patient opens eyes spontaneously, unable to track or follow commands, response to painful stimuli. Orally intubated, ETT 7.5, 22cm at lip line. AC 16, TV 500, FIO2 30%, PEEP 5. O2 sat 100%. No distress noted. G-tube intact, dressing intact, clean and dry, running HOB kept elevated. Hilario cath intact, patent, draining yellow urine by gravity. Left upper arm PICC line intact, TKO. Patient on P200 mattress. Wound dressings intact, clean and dry. Bed in lowest position, locked, side rails upx3. Side rails are padded. Call light within reach. Bed alarm on. Will continue to monitor.
--- NOTE | 2019-05-10 07:30 | NUR ---
HAND-OFF: Report given to Santa Ching RN.
[2019-05-10] MEDS: Pantoprazole Inj IV SCH ×2 (08:22→21:30)
[2019-05-10] MEDS: Heparin 5000 units/ml inj SUBQ SCH ×2 (08:23→21:35)
--- NOTE | 2019-05-10 08:48 | NUR ---
RESPIRATORY NOTE: Placed pt on CPAP PS 8, 30%FiO2, peep 5. Pt was tolerating well at first, then started to become tachypneic RR from 20 to 35, RSBI from 56 to 118, NIF -8.2 the highest within 3 minutes. Pt unable to follow commands. Placed pt back on AC mode. Pt is calm down now. No SOB or resp distress noted at this time.RN KASH Ching made aware. Will continue to monitor.
--- NOTE | 2019-05-10 09:38 | General Progress Note ---
Assessment/Plan Problem List: (1) Acute respiratory failure ICD Codes: J96.00 - Acute respiratory failure, unspecified whether with hypoxia or hypercapnia SNOMED: 69686492 (2) Septic shock ICD Codes: A41.9 - Sepsis, unspecified organism; R65.21 - Severe sepsis with septic shock SNOMED: 91504350, 3280079 (3) Diabetes mellitus ICD Codes: E11.9 - Type 2 diabetes mellitus without complications SNOMED: 35651481 (4) Hypertension ICD Codes: I10 - Essential (primary) hypertension SNOMED: 46274591 (5) COPD (chronic obstructive pulmonary disease) ICD Codes: J44.9 - Chronic obstructive pulmonary disease, unspecified SNOMED: 09894090 (6) Anemia ICD Codes: D64.9 - Anemia, unspecified SNOMED: 259886221 (7) Schizophrenia ICD Codes: F20.9 - Schizophrenia, unspecified SNOMED: 48888199 Status: stable Assessment/Plan: vent abx bp bs control cbc bmp am Subjective Constitutional: Reports: weakness Allergies: Coded Allergies: No Known Allergies (Unverified , 05/01/19) All Systems: reviewed and negative except above Subjective intubated sedated in icu Objective Last 24 Hour Vital Signs Date Time Temp Pulse Resp B/P (MAP) Pulse Ox O2 Delivery O2 Flow Rate FiO2 05/10/19 09:00 71 16 110/38 (62) 99 05/10/19 08:48 99 05/10/19 08:48 72 18 30 05/10/19 08:00 Mechanical Ventilator 05/10/19 08:00 73 05/10/19 08:00 98.6 70 16 109/37 (61) 99 05/10/19 08:00 30 05/10/19 07:15 70 17 30 05/10/19 07:00 68 16 105/42 (63) 99 05/10/19 06:00 69 16 132/110 (117) 99 05/10/19 05:00 68 16 110/40 (63) 99 05/10/19 04:47 66 16 30 05/10/19 04:00 30 05/10/19 04:00 Mechanical Ventilator 05/10/19 04:00 98.3 69 16 115/38 (63) 99 05/10/19 03:28 71 05/10/19 03:00 69 17 119/47 (71) 99 05/10/19 02:55 70 18 30 05/10/19 02:00 68 16 104/42 (62) 99 05/10/19 01:00 73 16 100/39 (59) 99 05/10/19 01:00 73 16 30 05/10/19 00:08 74 05/10/19 00:00 Mechanical Ventilator 05/10/19 00:00 30 05/10/19 00:00 99.1 71 16 102/40 (60) 99 05/09/19 23:12 69 16 30 05/09/19 23:00 73 16 109/39 (62) 99 05/09/19 22:00 74 16 102/40 (60) 99 05/09/19 21:22 72 16 30 05/09/19 21:00 76 16 109/39 (62) 99 05/09/19 20:04 82 05/09/19 20:00 Mechanical Ventilator 05/09/19 20:00 30 05/09/19 20:00 99.3 81 16 101/42 (61) 98 05/09/19 19:15 84 16 30 05/09/19 19:00 78 16 103/41 (61) 98 05/09/19 18:00 84 17 117/45 (69) 98 05/09/19 17:00 82 17 116/51 (72) 99 05/09/19 16:58 83 19 30 05/09/19 16:00 98.2 74 16 103/38 (59) 99 05/09/19 16:00 30 05/09/19 16:00 74 05/09/19 16:00 Mechanical Ventilator 05/09/19 15:00 75 15 106/40 (62) 98 05/09/19 14:38 72 16 30 05/09/19 14:00 74 16 106/37 (60) 98 05/09/19 13:00 74 16 100/38 (58) 98 05/09/19 12:52 75 16 30 05/09/19 12:02 102/58 05/09/19 12:00 97.8 69 16 97/38 (57) 98 05/09/19 12:00 Mechanical Ventilator 05/09/19 12:00 30 05/09/19 12:00 68 05/09/19 11:00 73 16 108/38 (61) 99 05/09/19 10:38 75 17 30 05/09/19 10:00 73 16 110/41 (64) 100 05/09/19 09:46 30 05/09/19 09:37 30 30 05/09/19 09:37 99 Intake and Output 05/09/19 05/10/19 19:00 07:00 Intake Total 1075 ml 840 ml Output Total 830 ml 650 ml Balance 245 ml 190 ml Free Water 120 ml 30 ml IV Total 355 ml 110 ml Tube Feeding 600 ml 600 ml Other 100 ml Output Urine Total 830 ml 650 ml # Bowel Movements 1 4 Laboratory Tests 05/10/19 04:20: White Blood Count 7.6, Red Blood Count 3.04L, Hemoglobin 8.9L, Hematocrit 27.2L , Mean Corpuscular Volume 89, Mean Corpuscular Hemoglobin 29.4, Mean Corpuscular Hemoglobin Concent 32.8, Red Cell Distribution Width 16.0H, Platelet Count 224, Mean Platelet Volume 5.6L, Neutrophils (%) (Auto) 71.7, Lymphocytes (%) (Auto) 21.5, Monocytes (%) (Auto) 3.5, Eosinophils (%) (Auto) 2.5, Basophils (%) (Auto) 0.8, Sodium Level 136, Potassium Level 4.7, Chloride Level 109H, Carbon Dioxide Level 19L, Anion Gap 8, Blood Urea Nitrogen 34H, Creatinine 1.2, Estimat Glomerular Filtration Rate , Glucose Level 140H, Calcium Level 9.1, Phosphorus Level 2.2L, Magnesium Level 2.2, Total Bilirubin 0.3, Aspartate Amino Transf (AST/SGOT) 41H, Alanine Aminotransferase (ALT/SGPT) 57, Alkaline Phosphatase 305H, Total Protein 4.1L, Albumin 1.4L, Globulin 2.7, Albumin/Globulin Ratio 0.5L 05/10/19 08:51: Arterial Blood pH 7.380, Arterial Blood Partial Pressure CO2 28.4L, Arterial Blood Partial Pressure O2 130.8H, Arterial Blood HCO3 16.4*L, Arterial Blood Oxygen Saturation 98.3, Arterial Blood Base Excess -7.6L, Silas Test Positive Height (Feet): 5 Height (Inches): 7.00 Weight (Pounds): 120 General Appearance: lethargic EENT: normal ENT inspection Neck: normal alignment Cardiovascular: normal peripheral pulses, normal rate, regular rhythm Respiratory/Chest: chest wall non-tender, lungs clear, normal breath sounds Abdomen: normal bowel sounds, non tender, soft Extremities: normal inspection Edema: no edema noted Arm (L), no edema noted Arm (R), no edema noted Leg (L), no edema noted Leg (R), no edema noted Pedal (L), no edema noted Pedal (R), no edema noted Generalized Neurologic: motor weakness Skin: normal pigmentation, warm/dry Cosme Chong DO May 10, 2019 09:38
--- NOTE | 2019-05-10 09:45 | NUR ---
NURSE NOTES: Patient seen by Dr. Lau. aware that patient has diarrhea, patient tolerating tube feeding. HOB kept elevated. Per , okay to dc erythromycin.
--- NOTE | 2019-05-10 09:58 | NUR ---
RADIOLOGY DEPT., CHEST X-RAY DONE.-P.DYE
--- NOTE | 2019-05-10 10:03 | NUR ---
NURSE NOTES: Dr. Lai at bedside to assess the patient. MD made aware of ABG results and patient failed weaning
--- NOTE | 2019-05-10 10:09 | Pulmonolgy Critical Care Note ---
Critical Care - Asmt/Plan Problems: (1) Acute respiratory failure (2) Septic shock (3) COPD (chronic obstructive pulmonary disease) (4) Hypernatremia (5) Acute kidney injury (6) Hypertension (7) Diabetes mellitus (8) Feeding by G-tube Respiratory: monitor respiratory rate, adjust FIO2, other - still lots of secretion Cardiac: continue to monitor HR/BP, other - off levophed Renal: F/U I&O Infectious Disease: check cultures, other - On meropenem and Linezolid Gastrointestinal: continue feedings/current rate Endocrine: check TSH Hematologic: monitor H/H Neurologic: PRN Morphine Prophylaxis: Protonix Notes Reviewed: software developer mid level Discussed with: nurses, consultants, major case detectiveglobal engineering manager - Objective Last 24 Hour Vital Signs Date Time Temp Pulse Resp B/P (MAP) Pulse Ox O2 Delivery O2 Flow Rate FiO2 05/10/19 09:00 71 16 110/38 (62) 99 05/10/19 08:48 99 05/10/19 08:48 72 18 30 05/10/19 08:00 Mechanical Ventilator 05/10/19 08:00 73 05/10/19 08:00 98.6 70 16 109/37 (61) 99 05/10/19 08:00 30 05/10/19 07:15 70 17 30 05/10/19 07:00 68 16 105/42 (63) 99 05/10/19 06:00 69 16 132/110 (117) 99 05/10/19 05:00 68 16 110/40 (63) 99 05/10/19 04:47 66 16 30 05/10/19 04:00 30 05/10/19 04:00 Mechanical Ventilator 05/10/19 04:00 98.3 69 16 115/38 (63) 99 05/10/19 03:28 71 05/10/19 03:00 69 17 119/47 (71) 99 05/10/19 02:55 70 18 30 05/10/19 02:00 68 16 104/42 (62) 99 05/10/19 01:00 73 16 100/39 (59) 99 05/10/19 01:00 73 16 30 05/10/19 00:08 74 05/10/19 00:00 Mechanical Ventilator 05/10/19 00:00 30 05/10/19 00:00 99.1 71 16 102/40 (60) 99 05/09/19 23:12 69 16 30 05/09/19 23:00 73 16 109/39 (62) 99 05/09/19 22:00 74 16 102/40 (60) 99 05/09/19 21:22 72 16 30 05/09/19 21:00 76 16 109/39 (62) 99 05/09/19 20:04 82 05/09/19 20:00 Mechanical Ventilator 05/09/19 20:00 30 05/09/19 20:00 99.3 81 16 101/42 (61) 98 05/09/19 19:15 84 16 30 05/09/19 19:00 78 16 103/41 (61) 98 05/09/19 18:00 84 17 117/45 (69) 98 05/09/19 17:00 82 17 116/51 (72) 99 05/09/19 16:58 83 19 30 05/09/19 16:00 98.2 74 16 103/38 (59) 99 05/09/19 16:00 30 05/09/19 16:00 74 05/09/19 16:00 Mechanical Ventilator 05/09/19 15:00 75 15 106/40 (62) 98 05/09/19 14:38 72 16 30 05/09/19 14:00 74 16 106/37 (60) 98 05/09/19 13:00 74 16 100/38 (58) 98 05/09/19 12:52 75 16 30 05/09/19 12:02 102/58 05/09/19 12:00 97.8 69 16 97/38 (57) 98 05/09/19 12:00 Mechanical Ventilator 05/09/19 12:00 30 05/09/19 12:00 68 05/09/19 11:00 73 16 108/38 (61) 99 05/09/19 10:38 75 17 30 Status: sedated Condition: critical HEENT: atraumatic Lungs: clear Heart: HR/BP stable, regular Abdomen: soft Extremities: no C/C/E, edema Decubiti: location Accucheck: 152 Critical Care - Subjective ROS Limited/Unobtainable: Yes Condition: critical EKG Rhythm: Sinus Rhythm FI02: 30 Vent Support Breath Rate: 16 Vent Support Mode: AC Vent Tidal Volume: 500 Sputum Amount: Small PEEP: 5.0 PIP: 22 Tube Feeding Amount: 50 I&O: Intake and Output 05/09/19 05/10/19 19:00 07:00 Intake Total 1075 ml 840 ml Output Total 830 ml 650 ml Balance 245 ml 190 ml Free Water 120 ml 30 ml IV Total 355 ml 110 ml Tube Feeding 600 ml 600 ml Other 100 ml Output Urine Total 830 ml 650 ml # Bowel Movements 1 4 CXR: bilateral infiltrate ET-Tube: 7.5 ET Position: 22 Labs: Laboratory Tests Test 05/10/19 04:20 05/10/19 08:51 White Blood Count 7.6 K/UL (4.8-10.8) Red Blood Count 3.04 M/UL (4.20-5.40) L Hemoglobin 8.9 G/DL (12.0-16.0) L Hematocrit 27.2 % (37.0-47.0) L Mean Corpuscular Volume 89 FL (80-99) Mean Corpuscular Hemoglobin 29.4 PG (27.0-31.0) Mean Corpuscular Hemoglobin Concent 32.8 G/DL (32.0-36.0) Red Cell Distribution Width 16.0 % (11.6-14.8) H Platelet Count 224 K/UL (150-450) Mean Platelet Volume 5.6 FL (6.5-10.1) L Neutrophils (%) (Auto) 71.7 % (45.0-75.0) Lymphocytes (%) (Auto) 21.5 % (20.0-45.0) Monocytes (%) (Auto) 3.5 % (1.0-10.0) Eosinophils (%) (Auto) 2.5 % (0.0-3.0) Basophils (%) (Auto) 0.8 % (0.0-2.0) Sodium Level 136 MMOL/L (136-145) Potassium Level 4.7 MMOL/L (3.5-5.1) Chloride Level 109 MMOL/L (98-107) H Carbon Dioxide Level 19 MMOL/L (21-32) L Anion Gap 8 mmol/L (5-15) Blood Urea Nitrogen 34 mg/dL (7-18) H Creatinine 1.2 MG/DL (0.55-1.30) Estimat Glomerular Filtration Rate mL/min (>60) Glucose Level 140 MG/DL (74-106) H Calcium Level 9.1 MG/DL (8.5-10.1) Phosphorus Level 2.2 MG/DL (2.5-4.9) L Magnesium Level 2.2 MG/DL (1.8-2.4) Total Bilirubin 0.3 MG/DL (0.2-1.0) Aspartate Amino Transf (AST/SGOT) 41 U/L (15-37) H Alanine Aminotransferase (ALT/SGPT) 57 U/L (12-78) Alkaline Phosphatase 305 U/L (46-116) H Total Protein 4.1 G/DL (6.4-8.2) L Albumin 1.4 G/DL (3.4-5.0) L Globulin 2.7 g/dL Albumin/Globulin Ratio 0.5 (1.0-2.7) L Arterial Blood pH 7.380 (7.350-7.450) Arterial Blood Partial Pressure CO2 28.4 mmHg (35.0-45.0) L Arterial Blood Partial Pressure O2 130.8 mmHg (75.0-100.0) H Arterial Blood HCO3 16.4 mmol/L (22.0-26.0) *L Arterial Blood Oxygen Saturation 98.3 % (95-100) Arterial Blood Base Excess -7.6 (-2-2) L Silas Test Positive Yancy Lai MD May 10, 2019 10:09
--- NOTE | 2019-05-10 10:40 | Pulmonolgy Critical Care Note ---
Critical Care - Asmt/Plan Problems: (1) Acute respiratory failure (2) Septic shock (3) COPD (chronic obstructive pulmonary disease) (4) Hypernatremia (5) Acute kidney injury (6) Hypertension (7) Diabetes mellitus (8) Feeding by G-tube Respiratory: monitor respiratory rate, adjust FIO2, CXR Cardiac: continue to monitor HR/BP Renal: F/U I&O, keep IV fluid, check electrolytes Infectious Disease: check cultures, continue antibiotics Gastrointestinal: continue feedings/current rate Endocrine: monitor blood sugar, check HgA1C Hematologic: transfuse if hgb<8.5 Neurologic: PRN Ativan, PRN Morphine, keep patient comfortable Prophylaxis: Protonix Disposition: keep in ICU Notes Reviewed: cardio Discussed with: nurses, consultants, mental health case managersenior branch manager - Objective Last 24 Hour Vital Signs Date Time Temp Pulse Resp B/P (MAP) Pulse Ox O2 Delivery O2 Flow Rate FiO2 05/10/19 10:00 71 16 110/38 (62) 99 05/10/19 09:00 71 16 110/38 (62) 99 05/10/19 08:48 99 05/10/19 08:48 72 18 30 05/10/19 08:00 Mechanical Ventilator 05/10/19 08:00 73 05/10/19 08:00 98.6 70 16 109/37 (61) 99 05/10/19 08:00 30 05/10/19 07:15 70 17 30 05/10/19 07:00 68 16 105/42 (63) 99 05/10/19 06:00 69 16 132/110 (117) 99 05/10/19 05:00 68 16 110/40 (63) 99 05/10/19 04:47 66 16 30 05/10/19 04:00 30 05/10/19 04:00 Mechanical Ventilator 05/10/19 04:00 98.3 69 16 115/38 (63) 99 05/10/19 03:28 71 05/10/19 03:00 69 17 119/47 (71) 99 05/10/19 02:55 70 18 30 05/10/19 02:00 68 16 104/42 (62) 99 05/10/19 01:00 73 16 100/39 (59) 99 05/10/19 01:00 73 16 30 05/10/19 00:08 74 05/10/19 00:00 Mechanical Ventilator 05/10/19 00:00 30 05/10/19 00:00 99.1 71 16 102/40 (60) 99 05/09/19 23:12 69 16 30 05/09/19 23:00 73 16 109/39 (62) 99 05/09/19 22:00 74 16 102/40 (60) 99 05/09/19 21:22 72 16 30 05/09/19 21:00 76 16 109/39 (62) 99 05/09/19 20:04 82 05/09/19 20:00 Mechanical Ventilator 05/09/19 20:00 30 05/09/19 20:00 99.3 81 16 101/42 (61) 98 05/09/19 19:15 84 16 30 05/09/19 19:00 78 16 103/41 (61) 98 05/09/19 18:00 84 17 117/45 (69) 98 05/09/19 17:00 82 17 116/51 (72) 99 05/09/19 16:58 83 19 30 05/09/19 16:00 98.2 74 16 103/38 (59) 99 05/09/19 16:00 30 05/09/19 16:00 74 05/09/19 16:00 Mechanical Ventilator 05/09/19 15:00 75 15 106/40 (62) 98 05/09/19 14:38 72 16 30 05/09/19 14:00 74 16 106/37 (60) 98 05/09/19 13:00 74 16 100/38 (58) 98 05/09/19 12:52 75 16 30 05/09/19 12:02 102/58 05/09/19 12:00 97.8 69 16 97/38 (57) 98 05/09/19 12:00 Mechanical Ventilator 05/09/19 12:00 30 05/09/19 12:00 68 05/09/19 11:00 73 16 108/38 (61) 99 Status: sedated Condition: critical Neck: full ROM Lungs: chest wall tender Heart: HR/BP stable Abdomen: soft, active bowel sounds Extremities: edema Accucheck: 152 Critical Care - Subjective Condition: critical EKG Rhythm: Sinus Rhythm FI02: 30 Vent Support Breath Rate: 16 Vent Support Mode: AC Vent Tidal Volume: 500 Sputum Amount: Small PEEP: 5.0 PIP: 22 Tube Feeding Amount: 50 I&O: Intake and Output 05/09/19 05/10/19 19:00 07:00 Intake Total 1075 ml 840 ml Output Total 830 ml 650 ml Balance 245 ml 190 ml Free Water 120 ml 30 ml IV Total 355 ml 110 ml Tube Feeding 600 ml 600 ml Other 100 ml Output Urine Total 830 ml 650 ml # Bowel Movements 1 4 ET-Tube: 7.5 ET Position: 22 Labs: Laboratory Tests Test 05/10/19 04:20 05/10/19 08:51 White Blood Count 7.6 K/UL (4.8-10.8) Red Blood Count 3.04 M/UL (4.20-5.40) L Hemoglobin 8.9 G/DL (12.0-16.0) L Hematocrit 27.2 % (37.0-47.0) L Mean Corpuscular Volume 89 FL (80-99) Mean Corpuscular Hemoglobin 29.4 PG (27.0-31.0) Mean Corpuscular Hemoglobin Concent 32.8 G/DL (32.0-36.0) Red Cell Distribution Width 16.0 % (11.6-14.8) H Platelet Count 224 K/UL (150-450) Mean Platelet Volume 5.6 FL (6.5-10.1) L Neutrophils (%) (Auto) 71.7 % (45.0-75.0) Lymphocytes (%) (Auto) 21.5 % (20.0-45.0) Monocytes (%) (Auto) 3.5 % (1.0-10.0) Eosinophils (%) (Auto) 2.5 % (0.0-3.0) Basophils (%) (Auto) 0.8 % (0.0-2.0) Sodium Level 136 MMOL/L (136-145) Potassium Level 4.7 MMOL/L (3.5-5.1) Chloride Level 109 MMOL/L (98-107) H Carbon Dioxide Level 19 MMOL/L (21-32) L Anion Gap 8 mmol/L (5-15) Blood Urea Nitrogen 34 mg/dL (7-18) H Creatinine 1.2 MG/DL (0.55-1.30) Estimat Glomerular Filtration Rate mL/min (>60) Glucose Level 140 MG/DL (74-106) H Calcium Level 9.1 MG/DL (8.5-10.1) Phosphorus Level 2.2 MG/DL (2.5-4.9) L Magnesium Level 2.2 MG/DL (1.8-2.4) Total Bilirubin 0.3 MG/DL (0.2-1.0) Aspartate Amino Transf (AST/SGOT) 41 U/L (15-37) H Alanine Aminotransferase (ALT/SGPT) 57 U/L (12-78) Alkaline Phosphatase 305 U/L (46-116) H Total Protein 4.1 G/DL (6.4-8.2) L Albumin 1.4 G/DL (3.4-5.0) L Globulin 2.7 g/dL Albumin/Globulin Ratio 0.5 (1.0-2.7) L Arterial Blood pH 7.380 (7.350-7.450) Arterial Blood Partial Pressure CO2 28.4 mmHg (35.0-45.0) L Arterial Blood Partial Pressure O2 130.8 mmHg (75.0-100.0) H Arterial Blood HCO3 16.4 mmol/L (22.0-26.0) *L Arterial Blood Oxygen Saturation 98.3 % (95-100) Arterial Blood Base Excess -7.6 (-2-2) L Silas Test Positive Yancy Lai MD May 10, 2019 10:40
[2019-05-10] MEDS ORDERED: Sodium Phosphate 15 MM in NS 275 ML IVPB SCH (11:00)
--- NOTE | 2019-05-10 11:00 | General Progress Note ---
Assessment/Plan Status: stable Assessment/Plan: Assessment/Plan Problems: (1) Septic shock ICD Codes: A41.9 - Sepsis, unspecified organism; R65.21 - Severe sepsis with septic shock SNOMED: 66105574, 7001468 (2) Feeding by G-tube ICD Codes: Z93.1 - Gastrostomy status SNOMED: 957225168, 393816246, 682795978 (3) Diabetes mellitus ICD Codes: E11.9 - Type 2 diabetes mellitus without complications SNOMED: 13167380 (4) Anemia ICD Codes: D64.9 - Anemia, unspecified SNOMED: 205935110 Status: unchanged Status Narrative Assessment/Plan No plans for any GI procedures at this given time given the patient's elevated troponin level and hemodynamic instability. occult blood stool to evaluate for any GI bleed, negative Monitor H&H, PRN transfusions PPI GTFs Electrolyte correction, increase free water flushes for hypernatremia GT site care daily and as needed We will follow on a daily basis with additional recommendation Subjective ROS Limited/Unobtainable: No Allergies: Coded Allergies: No Known Allergies (Unverified , 05/01/19) Objective Last 24 Hour Vital Signs Date Time Temp Pulse Resp B/P (MAP) Pulse Ox O2 Delivery O2 Flow Rate FiO2 05/10/19 10:00 71 16 110/38 (62) 99 05/10/19 09:00 71 16 110/38 (62) 99 05/10/19 08:48 99 05/10/19 08:48 72 18 30 05/10/19 08:00 Mechanical Ventilator 05/10/19 08:00 73 05/10/19 08:00 98.6 70 16 109/37 (61) 99 05/10/19 08:00 30 05/10/19 07:15 70 17 30 05/10/19 07:00 68 16 105/42 (63) 99 05/10/19 06:00 69 16 132/110 (117) 99 05/10/19 05:00 68 16 110/40 (63) 99 05/10/19 04:47 66 16 30 05/10/19 04:00 30 05/10/19 04:00 Mechanical Ventilator 05/10/19 04:00 98.3 69 16 115/38 (63) 99 05/10/19 03:28 71 05/10/19 03:00 69 17 119/47 (71) 99 05/10/19 02:55 70 18 30 05/10/19 02:00 68 16 104/42 (62) 99 05/10/19 01:00 73 16 100/39 (59) 99 05/10/19 01:00 73 16 30 05/10/19 00:08 74 05/10/19 00:00 Mechanical Ventilator 05/10/19 00:00 30 05/10/19 00:00 99.1 71 16 102/40 (60) 99 05/09/19 23:12 69 16 30 05/09/19 23:00 73 16 109/39 (62) 99 05/09/19 22:00 74 16 102/40 (60) 99 05/09/19 21:22 72 16 30 05/09/19 21:00 76 16 109/39 (62) 99 05/09/19 20:04 82 05/09/19 20:00 Mechanical Ventilator 05/09/19 20:00 30 05/09/19 20:00 99.3 81 16 101/42 (61) 98 05/09/19 19:15 84 16 30 05/09/19 19:00 78 16 103/41 (61) 98 05/09/19 18:00 84 17 117/45 (69) 98 05/09/19 17:00 82 17 116/51 (72) 99 05/09/19 16:58 83 19 30 05/09/19 16:00 98.2 74 16 103/38 (59) 99 05/09/19 16:00 30 05/09/19 16:00 74 05/09/19 16:00 Mechanical Ventilator 05/09/19 15:00 75 15 106/40 (62) 98 05/09/19 14:38 72 16 30 05/09/19 14:00 74 16 106/37 (60) 98 05/09/19 13:00 74 16 100/38 (58) 98 05/09/19 12:52 75 16 30 05/09/19 12:02 102/58 05/09/19 12:00 97.8 69 16 97/38 (57) 98 05/09/19 12:00 Mechanical Ventilator 05/09/19 12:00 30 05/09/19 12:00 68 05/09/19 11:00 73 16 108/38 (61) 99 Intake and Output 05/09/19 05/10/19 19:00 07:00 Intake Total 1075 ml 840 ml Output Total 830 ml 650 ml Balance 245 ml 190 ml Free Water 120 ml 30 ml IV Total 355 ml 110 ml Tube Feeding 600 ml 600 ml Other 100 ml Output Urine Total 830 ml 650 ml # Bowel Movements 1 4 Laboratory Tests 05/10/19 04:20: White Blood Count 7.6, Red Blood Count 3.04L, Hemoglobin 8.9L, Hematocrit 27.2L , Mean Corpuscular Volume 89, Mean Corpuscular Hemoglobin 29.4, Mean Corpuscular Hemoglobin Concent 32.8, Red Cell Distribution Width 16.0H, Platelet Count 224, Mean Platelet Volume 5.6L, Neutrophils (%) (Auto) 71.7, Lymphocytes (%) (Auto) 21.5, Monocytes (%) (Auto) 3.5, Eosinophils (%) (Auto) 2.5, Basophils (%) (Auto) 0.8, Sodium Level 136, Potassium Level 4.7, Chloride Level 109H, Carbon Dioxide Level 19L, Anion Gap 8, Blood Urea Nitrogen 34H, Creatinine 1.2, Estimat Glomerular Filtration Rate , Glucose Level 140H, Calcium Level 9.1, Phosphorus Level 2.2L, Magnesium Level 2.2, Total Bilirubin 0.3, Aspartate Amino Transf (AST/SGOT) 41H, Alanine Aminotransferase (ALT/SGPT) 57, Alkaline Phosphatase 305H, Total Protein 4.1L, Albumin 1.4L, Globulin 2.7, Albumin/Globulin Ratio 0.5L 05/10/19 08:51: Arterial Blood pH 7.380, Arterial Blood Partial Pressure CO2 28.4L, Arterial Blood Partial Pressure O2 130.8H, Arterial Blood HCO3 16.4*L, Arterial Blood Oxygen Saturation 98.3, Arterial Blood Base Excess -7.6L, Silas Test Positive Height (Feet): 5 Height (Inches): 7.00 Weight (Pounds): 120 General Appearance: no apparent distress EENT: normal ENT inspection Neck: supple Cardiovascular: normal rate Respiratory/Chest: decreased breath sounds Abdomen: normal bowel sounds, non tender, soft Extremities: non-tender Alfredo Lau MD May 10, 2019 11:00
--- NOTE | 2019-05-10 11:11 | Nephrology Progress Note ---
Assessment/Plan Problem List: (1) Hypercalcemia Assessment: improving (2) Septic shock (3) Acute kidney injury (4) Acute respiratory failure (5) Dehydration (6) Anemia Assessment Acute renal failure Dehydration / HyperNatremia / HyperCalcemia Septic Shock Respiratory failure / COPD NSTEMI DM PEG Schizophrenia Anemia Plan Aredia 90 mg IV and Nasal Calcitonin correct lytes prn Lasix trial Midodrine IV fluid change to 1/2 NS K and Phos and Mag supplement as needed monitor renal parameters and Calcium urine studies anemia au avoid Nephrotoxics Subjective ROS Limited/Unobtainable: Yes Objective Objective Last 24 Hour Vital Signs Date Time Temp Pulse Resp B/P (MAP) Pulse Ox O2 Delivery O2 Flow Rate FiO2 05/10/19 11:00 71 16 108/42 (64) 99 05/10/19 10:00 71 16 110/38 (62) 99 05/10/19 09:00 71 16 110/38 (62) 99 05/10/19 08:48 99 05/10/19 08:48 72 18 30 05/10/19 08:00 Mechanical Ventilator 05/10/19 08:00 73 05/10/19 08:00 98.6 70 16 109/37 (61) 99 05/10/19 08:00 30 05/10/19 07:15 70 17 30 05/10/19 07:00 68 16 105/42 (63) 99 05/10/19 06:00 69 16 132/110 (117) 99 05/10/19 05:00 68 16 110/40 (63) 99 05/10/19 04:47 66 16 30 05/10/19 04:00 30 05/10/19 04:00 Mechanical Ventilator 05/10/19 04:00 98.3 69 16 115/38 (63) 99 05/10/19 03:28 71 05/10/19 03:00 69 17 119/47 (71) 99 05/10/19 02:55 70 18 30 05/10/19 02:00 68 16 104/42 (62) 99 05/10/19 01:00 73 16 100/39 (59) 99 05/10/19 01:00 73 16 30 05/10/19 00:08 74 05/10/19 00:00 Mechanical Ventilator 05/10/19 00:00 30 05/10/19 00:00 99.1 71 16 102/40 (60) 99 05/09/19 23:12 69 16 30 05/09/19 23:00 73 16 109/39 (62) 99 05/09/19 22:00 74 16 102/40 (60) 99 05/09/19 21:22 72 16 30 05/09/19 21:00 76 16 109/39 (62) 99 05/09/19 20:04 82 05/09/19 20:00 Mechanical Ventilator 05/09/19 20:00 30 05/09/19 20:00 99.3 81 16 101/42 (61) 98 05/09/19 19:15 84 16 30 05/09/19 19:00 78 16 103/41 (61) 98 05/09/19 18:00 84 17 117/45 (69) 98 05/09/19 17:00 82 17 116/51 (72) 99 05/09/19 16:58 83 19 30 05/09/19 16:00 98.2 74 16 103/38 (59) 99 05/09/19 16:00 30 05/09/19 16:00 74 05/09/19 16:00 Mechanical Ventilator 05/09/19 15:00 75 15 106/40 (62) 98 05/09/19 14:38 72 16 30 05/09/19 14:00 74 16 106/37 (60) 98 05/09/19 13:00 74 16 100/38 (58) 98 05/09/19 12:52 75 16 30 05/09/19 12:02 102/58 05/09/19 12:00 97.8 69 16 97/38 (57) 98 05/09/19 12:00 Mechanical Ventilator 05/09/19 12:00 30 05/09/19 12:00 68 Intake and Output 05/09/19 05/10/19 19:00 07:00 Intake Total 1075 ml 840 ml Output Total 830 ml 650 ml Balance 245 ml 190 ml Free Water 120 ml 30 ml IV Total 355 ml 110 ml Tube Feeding 600 ml 600 ml Other 100 ml Output Urine Total 830 ml 650 ml # Bowel Movements 1 4 Laboratory Tests 05/10/19 04:20: White Blood Count 7.6, Red Blood Count 3.04L, Hemoglobin 8.9L, Hematocrit 27.2L , Mean Corpuscular Volume 89, Mean Corpuscular Hemoglobin 29.4, Mean Corpuscular Hemoglobin Concent 32.8, Red Cell Distribution Width 16.0H, Platelet Count 224, Mean Platelet Volume 5.6L, Neutrophils (%) (Auto) 71.7, Lymphocytes (%) (Auto) 21.5, Monocytes (%) (Auto) 3.5, Eosinophils (%) (Auto) 2.5, Basophils (%) (Auto) 0.8, Sodium Level 136, Potassium Level 4.7, Chloride Level 109H, Carbon Dioxide Level 19L, Anion Gap 8, Blood Urea Nitrogen 34H, Creatinine 1.2, Estimat Glomerular Filtration Rate , Glucose Level 140H, Calcium Level 9.1, Phosphorus Level 2.2L, Magnesium Level 2.2, Total Bilirubin 0.3, Aspartate Amino Transf (AST/SGOT) 41H, Alanine Aminotransferase (ALT/SGPT) 57, Alkaline Phosphatase 305H, Total Protein 4.1L, Albumin 1.4L, Globulin 2.7, Albumin/Globulin Ratio 0.5L 05/10/19 08:51: Arterial Blood pH 7.380, Arterial Blood Partial Pressure CO2 28.4L, Arterial Blood Partial Pressure O2 130.8H, Arterial Blood HCO3 16.4*L, Arterial Blood Oxygen Saturation 98.3, Arterial Blood Base Excess -7.6L, Silas Test Positive Height (Feet): 5 Height (Inches): 7.00 Weight (Pounds): 120 General Appearance: no apparent distress Objective no change Fox Ho MD May 10, 2019 11:11
--- NOTE | 2019-05-10 11:50 | Diagnostic Imaging Report ---
Indication: Dyspnea Comparison: 05/09/2019 A single view chest radiograph was obtained. Findings: Tubes and lines are stable. Heart size is stable. Pulmonary vascular congestion appears stable and unchanged. IMPRESSION: No change from the prior day
--- NOTE | 2019-05-10 12:00 | NUR ---
NURSE NOTES: Patient is awake, opens eyes spontaneously, unable to follow commands. VSS. SR noted on tool and die engineer. patient was turned and repositioned.
--- NOTE | 2019-05-10 13:57 | NUR ---
NURSE NOTES: Patient seen by Dr. Palm. notified that pt having diarrhea, erythromycin was dc'd. No new orders at this time.
--- NOTE | 2019-05-10 15:45 | NUR ---
RD ASSESSMENT & RECOMMENDATIONS SEE CARE ACTIVITY FOR COMPLETE ASSESSMENT DAILY ESTIMATED NEEDS: Needs based on Critical care, wounds; 48.6kg 22- 30 kcals/kg 7062-4076 total kcals 1.25-2 g protein/kg 61-97 g total protein 25-30 mL/kg 9555-5525 total fluid mLs NUTRITION DIAGNOSIS: 1) Increased kcal and pro needs r/t wound healing AEB pt adm w/ multiple wounds, including full thickness sacral wounds, refer to WC eval. 2) Swallowing difficulty r/t respiratory status AEB pt is intubated, PEG dep, on GT feeds. CURRENT TF:Glucerna 1.2 @50ml/hr x 24 hrs ENTERAL NUTRITION RECOMMENDATIONS: Glucerna 1.2 @50ml/hr x 24 hrs to provide 1200ml, 1440kcal, 72g prot, 966ml free water - Maintain current TF w/ continued TF tolerance - Flush per MD. HOB over 30 degrees Pt w/ h/o elev residuals. W/ consistent residuals, rec TF change to Vital AF 1.2 @ 45ml/hr x 24 hrs to provide 1080mL, 1296kcal, 81g pro, 876mL free H2O ADDITIONAL RECOMMENDATIONS: 1) Per SNF: 107 lbs, 60 inches 2) Monitor for residuals : Erythromycin dc'ed 05/10 3) Wound care: Add TANYA BID + Vit C 250mg BID 4) Monitor lytes-> replete as needed 5) Monitor BGs, need for long acting insulin 6) Consider probiotics for diarrhea 7) Monitor HD stability: pressor held since 05/05
[2019-05-10] MEDS ORDERED: NS 275ml ONE ×3 (15:50→16:02)
[2019-05-10] MEDS ORDERED: Tubing IV Secondary IV ONE (15:50)
[2019-05-10] MEDS ORDERED: 1/2 NS 1000ml IV ONE (15:59)
--- NOTE | 2019-05-10 16:00 | NUR ---
NURSE NOTES: Patient resting in bed comfortably. No acute distress noted. VSS. Oral care provided. patient was turned and repositioned.
--- NOTE | 2019-05-10 16:09 | Surgery Progress Note ---
Surgery Progress Note Subjective Additional Comments more responsive today but still ill in ICU labs noted exam unchanged great nursing care provided Objective Last 24 Hour Vital Signs Date Time Temp Pulse Resp B/P (MAP) Pulse Ox O2 Delivery O2 Flow Rate FiO2 05/10/19 15:43 71 16 30 05/10/19 15:00 66 16 113/40 (64) 100 05/10/19 14:39 71 16 30 05/10/19 14:00 67 16 104/49 (67) 100 05/10/19 13:02 69 16 30 05/10/19 13:00 70 16 101/35 (57) 100 05/10/19 12:00 30 05/10/19 12:00 67 05/10/19 12:00 98.9 66 16 103/43 (63) 99 05/10/19 12:00 Mechanical Ventilator 05/10/19 11:00 71 16 108/42 (64) 99 05/10/19 11:00 68 16 30 05/10/19 10:00 71 16 110/38 (62) 99 05/10/19 09:00 71 16 110/38 (62) 99 05/10/19 08:48 99 05/10/19 08:48 72 18 30 05/10/19 08:00 Mechanical Ventilator 05/10/19 08:00 73 05/10/19 08:00 98.6 70 16 109/37 (61) 99 05/10/19 08:00 30 05/10/19 07:15 70 17 30 05/10/19 07:00 68 16 105/42 (63) 99 05/10/19 06:00 69 16 132/110 (117) 99 05/10/19 05:00 68 16 110/40 (63) 99 05/10/19 04:47 66 16 30 05/10/19 04:00 30 05/10/19 04:00 Mechanical Ventilator 05/10/19 04:00 98.3 69 16 115/38 (63) 99 05/10/19 03:28 71 05/10/19 03:00 69 17 119/47 (71) 99 05/10/19 02:55 70 18 30 05/10/19 02:00 68 16 104/42 (62) 99 05/10/19 01:00 73 16 100/39 (59) 99 05/10/19 01:00 73 16 30 05/10/19 00:08 74 05/10/19 00:00 Mechanical Ventilator 05/10/19 00:00 30 05/10/19 00:00 99.1 71 16 102/40 (60) 99 05/09/19 23:12 69 16 30 05/09/19 23:00 73 16 109/39 (62) 99 05/09/19 22:00 74 16 102/40 (60) 99 05/09/19 21:22 72 16 30 05/09/19 21:00 76 16 109/39 (62) 99 05/09/19 20:04 82 05/09/19 20:00 Mechanical Ventilator 05/09/19 20:00 30 05/09/19 20:00 99.3 81 16 101/42 (61) 98 05/09/19 19:15 84 16 30 05/09/19 19:00 78 16 103/41 (61) 98 05/09/19 18:00 84 17 117/45 (69) 98 05/09/19 17:00 82 17 116/51 (72) 99 05/09/19 16:58 83 19 30 I&O Intake and Output 05/09/19 05/10/19 19:00 07:00 Intake Total 1075 ml 840 ml Output Total 830 ml 650 ml Balance 245 ml 190 ml Free Water 120 ml 30 ml IV Total 355 ml 110 ml Tube Feeding 600 ml 600 ml Other 100 ml Output Urine Total 830 ml 650 ml # Bowel Movements 1 4 Dressing: saturated Wound: clean Cardiovascular: RSR Respiratory: clear, decreased breath sounds Abdomen: soft, present bowel sounds Extremities: no cyanosis, other Laboratory Tests Test 05/10/19 04:20 05/10/19 08:51 White Blood Count 7.6 K/UL (4.8-10.8) Red Blood Count 3.04 M/UL (4.20-5.40) L Hemoglobin 8.9 G/DL (12.0-16.0) L Hematocrit 27.2 % (37.0-47.0) L Mean Corpuscular Volume 89 FL (80-99) Mean Corpuscular Hemoglobin 29.4 PG (27.0-31.0) Mean Corpuscular Hemoglobin Concent 32.8 G/DL (32.0-36.0) Red Cell Distribution Width 16.0 % (11.6-14.8) H Platelet Count 224 K/UL (150-450) Mean Platelet Volume 5.6 FL (6.5-10.1) L Neutrophils (%) (Auto) 71.7 % (45.0-75.0) Lymphocytes (%) (Auto) 21.5 % (20.0-45.0) Monocytes (%) (Auto) 3.5 % (1.0-10.0) Eosinophils (%) (Auto) 2.5 % (0.0-3.0) Basophils (%) (Auto) 0.8 % (0.0-2.0) Sodium Level 136 MMOL/L (136-145) Potassium Level 4.7 MMOL/L (3.5-5.1) Chloride Level 109 MMOL/L (98-107) H Carbon Dioxide Level 19 MMOL/L (21-32) L Anion Gap 8 mmol/L (5-15) Blood Urea Nitrogen 34 mg/dL (7-18) H Creatinine 1.2 MG/DL (0.55-1.30) Estimat Glomerular Filtration Rate mL/min (>60) Glucose Level 140 MG/DL (74-106) H Calcium Level 9.1 MG/DL (8.5-10.1) Phosphorus Level 2.2 MG/DL (2.5-4.9) L Magnesium Level 2.2 MG/DL (1.8-2.4) Total Bilirubin 0.3 MG/DL (0.2-1.0) Aspartate Amino Transf (AST/SGOT) 41 U/L (15-37) H Alanine Aminotransferase (ALT/SGPT) 57 U/L (12-78) Alkaline Phosphatase 305 U/L (46-116) H Total Protein 4.1 G/DL (6.4-8.2) L Albumin 1.4 G/DL (3.4-5.0) L Globulin 2.7 g/dL Albumin/Globulin Ratio 0.5 (1.0-2.7) L Arterial Blood pH 7.380 (7.350-7.450) Arterial Blood Partial Pressure CO2 28.4 mmHg (35.0-45.0) L Arterial Blood Partial Pressure O2 130.8 mmHg (75.0-100.0) H Arterial Blood HCO3 16.4 mmol/L (22.0-26.0) *L Arterial Blood Oxygen Saturation 98.3 % (95-100) Arterial Blood Base Excess -7.6 (-2-2) L Silas Test Positive Plan Problems: (1) Sacral decubitus ulcer, stage III Assessment & Plan: Patient presented on admission with multiple pressure injuries noted. Patient seen by team during admission and I was called on to evaluate patient Full Thickness Stage III Pressure injury sacrum. Base of wound 100% necrotic with red margins(L)2.5cm x (W)2.7cm with surrounding maroon and indurated borders (L)7.5cm x (W)8.5cm. Periwound soft and with edema. Maroon and indurated area noted to R buttocks. Non-blanching erythema noted to R trochanteric.(L)6.5cm x (W)7.5cm. Elongated wound noted to medial/posterior R thigh(L)0.6cm x (W)5.2cm. L heel boggy with non-blanching erythema. Non-Blanchable erythema R heel without fluctuance. Recommendations: Wash wounds daily with NS or soap/water Apply therahoney or hydrogel impregnated gauze to sacral wound, cover with foam dressing daily and prn saturation Will need to monitor for incontinence as she is having loose stools and need diligent care as can worsen wound Apply foam dressing to R hip, change q3 days bilateral heel foam dressings APM/SOILA Mattress overlay. Reposition at least every 2hours or as tolerated. Off-load heels with Pillow. nutritional optimization will follow with recs thank you (2) Malnutrition Assessment & Plan: DAILY ESTIMATED NEEDS: Needs based on Critical care, wounds; 48.6kg 22- 30 kcals/kg 5119-9290 total kcals 1.25-2 g protein/kg 61-97 g total protein 25-30 mL/kg 7938-8755 total fluid mLs NUTRITION DIAGNOSIS: 1) Increased kcal and pro needs r/t wound healing AEB pt adm w/ multiple wounds, including full thickness sacral wounds, refer to WC eval. 2) Swallowing difficulty r/t respiratory status AEB pt is intubated, Peg dep, TF at low rate for elev residuals. CURRENT TF:Glucerna 1.2 @50-> now @20ml/hr ENTERAL NUTRITION RECOMMENDATIONS: VITAL AF 1.2 @ 45mL/hr x 24 hrs to provide 1080mL, 1296kcal, 81g pro, 876mL free H2O With continued elev residuals, rec TF change to VITAL 1.2 w/ goal rate of 45ml/ hr. - Start @15ml/hr until tolerated w/ no to little residuals. Advance 10ml/hr q4-6 hrs to goal rate TOLERATED. - Flush per MD. HOB over 30 degrees ADDITIONAL RECOMMENDATIONS: 1) Per SNF: 107 lbs, 60 inches 2) When pt is stable, see TF recs above. 3) Wound care: Add TANYA BID + Vit C 250mg BID -> Hold Tanya BID until TF is better tolerated w/ low to no residuals 4) Monitor lytes-> replete as needed 5) With continued elevated blood glucose, rec long acting insulin Monitor BG w/ active TF order (3) Failure to thrive in adult (4) Feeding by G-tube (5) Septic shock Assessment & Plan: labs noted exam as above wean vent as tolerated nutritional optimization trend labs abx as per ID will follow with recs thank you (6) Dehydration Ralph Roth May 10, 2019 16:09
--- NOTE | 2019-05-10 16:09 | Infectious Diseases Prog Note ---
Assessment/Plan Assessment/Plan Assessment/Recommendation: Tmax 104.2, SP New leukocytosis after steroid given, SP Lactate 3.4>1.6>2.4>3.3>3.8>1.0 UTI? 05/01 UA 10-15 WBC 05/01 UCx: MDR Klebsiella(R-imipenem, gent, cipro, nitrofurantoin, zosyn, bactrim. I-amikacin) PNA? 05/01 sputum cx: MRSA, Providencia(S-amikacin, cefepime, ceftazidime, cipro, erta, zosyn), normal resp magdalena 05/01 CXR: Right mainstem intubation. Suggest pulling the tube back about 3 cm. Atelectasis of the left lower lobe. Superimposed pneumonia or pleural effusion is not excluded. CHF suspected. 05/01 CXR: Endotracheal tube is 2 cm above the guille in good position. A left subclavian line is also present in good position of the tip projected over the SVC. Pulmonary edema again demonstrated. There is hazy opacity at the left lung base which is probably a pleural effusion. 05/02 CXR: Over one day, interval improvement of previously demonstrated left- sided pleural fluid and interstitial and airspace edema. Parenchymal disease is unchanged on the right. 05/03 CXR: Stable satisfactory positions of endotracheal tube, left arm PICC. Hazy opacities in the right mid and lower lung are probably unchanged. There is a small amount of hazy opacity at the left lung base persisting as well. The heart is normal in size. Allowing for technical differences, findings are overall unchanged r/o bacteremia 05/01 BCx: ngtd MRSA negative VRE negative CRE negative HTN COPD Schizophrenia DM G tube Parkinson CKD Protein calorie malnutrition Dementia Psychosis Gastritis Functional paraplegia Plan: Meropenem #6/7 Linezolid #6/7 11/ DC Cefepime #1 05/04 SP Colistin #1 05/04 DC Ertapenem, Amikacin, Vancomycin #3 05/01 SP Zosyn #1 steroid per pulm f/u bcx f/u ucx f/u sputum cx aspiration precaution ETT management skin care oral care C diff if diarrhea persists Thank you for this consult. [facility] will continue to follow the patient with you. Subjective Allergies: Coded Allergies: No Known Allergies (Unverified , 05/01/19) Subjective Afebrile. no pressors. FiO2 30%/5. failed weaning again eyes open but does not track Diarrhea. erythromycin held. Objective Vital Signs Last 24 Hour Vital Signs Date Time Temp Pulse Resp B/P (MAP) Pulse Ox O2 Delivery O2 Flow Rate FiO2 05/10/19 15:43 71 16 30 05/10/19 15:00 66 16 113/40 (64) 100 05/10/19 14:39 71 16 30 05/10/19 14:00 67 16 104/49 (67) 100 05/10/19 13:02 69 16 30 05/10/19 13:00 70 16 101/35 (57) 100 05/10/19 12:00 30 05/10/19 12:00 67 05/10/19 12:00 98.9 66 16 103/43 (63) 99 05/10/19 12:00 Mechanical Ventilator 05/10/19 11:00 71 16 108/42 (64) 99 05/10/19 11:00 68 16 30 05/10/19 10:00 71 16 110/38 (62) 99 05/10/19 09:00 71 16 110/38 (62) 99 05/10/19 08:48 99 05/10/19 08:48 72 18 30 05/10/19 08:00 Mechanical Ventilator 05/10/19 08:00 73 05/10/19 08:00 98.6 70 16 109/37 (61) 99 05/10/19 08:00 30 05/10/19 07:15 70 17 30 05/10/19 07:00 68 16 105/42 (63) 99 05/10/19 06:00 69 16 132/110 (117) 99 05/10/19 05:00 68 16 110/40 (63) 99 05/10/19 04:47 66 16 30 05/10/19 04:00 30 05/10/19 04:00 Mechanical Ventilator 05/10/19 04:00 98.3 69 16 115/38 (63) 99 05/10/19 03:28 71 05/10/19 03:00 69 17 119/47 (71) 99 05/10/19 02:55 70 18 30 05/10/19 02:00 68 16 104/42 (62) 99 05/10/19 01:00 73 16 100/39 (59) 99 05/10/19 01:00 73 16 30 05/10/19 00:08 74 05/10/19 00:00 Mechanical Ventilator 05/10/19 00:00 30 05/10/19 00:00 99.1 71 16 102/40 (60) 99 05/09/19 23:12 69 16 30 05/09/19 23:00 73 16 109/39 (62) 99 05/09/19 22:00 74 16 102/40 (60) 99 05/09/19 21:22 72 16 30 05/09/19 21:00 76 16 109/39 (62) 99 05/09/19 20:04 82 05/09/19 20:00 Mechanical Ventilator 05/09/19 20:00 30 05/09/19 20:00 99.3 81 16 101/42 (61) 98 05/09/19 19:15 84 16 30 05/09/19 19:00 78 16 103/41 (61) 98 05/09/19 18:00 84 17 117/45 (69) 98 05/09/19 17:00 82 17 116/51 (72) 99 05/09/19 16:58 83 19 30 Height (Feet): 5 Height (Inches): 7.00 Weight (Pounds): 120 Objective VS: Tmax 104.2 Gen: NAD. twitching HEENT: ETT CV: RRR Resp: RRR. coarse. no wheezes Abd: soft. nondistended. normoactive Bs+ Neuro: not awake Laboratory Tests Test 05/10/19 04:20 05/10/19 08:51 White Blood Count 7.6 K/UL (4.8-10.8) Red Blood Count 3.04 M/UL (4.20-5.40) L Hemoglobin 8.9 G/DL (12.0-16.0) L Hematocrit 27.2 % (37.0-47.0) L Mean Corpuscular Volume 89 FL (80-99) Mean Corpuscular Hemoglobin 29.4 PG (27.0-31.0) Mean Corpuscular Hemoglobin Concent 32.8 G/DL (32.0-36.0) Red Cell Distribution Width 16.0 % (11.6-14.8) H Platelet Count 224 K/UL (150-450) Mean Platelet Volume 5.6 FL (6.5-10.1) L Neutrophils (%) (Auto) 71.7 % (45.0-75.0) Lymphocytes (%) (Auto) 21.5 % (20.0-45.0) Monocytes (%) (Auto) 3.5 % (1.0-10.0) Eosinophils (%) (Auto) 2.5 % (0.0-3.0) Basophils (%) (Auto) 0.8 % (0.0-2.0) Sodium Level 136 MMOL/L (136-145) Potassium Level 4.7 MMOL/L (3.5-5.1) Chloride Level 109 MMOL/L (98-107) H Carbon Dioxide Level 19 MMOL/L (21-32) L Anion Gap 8 mmol/L (5-15) Blood Urea Nitrogen 34 mg/dL (7-18) H Creatinine 1.2 MG/DL (0.55-1.30) Estimat Glomerular Filtration Rate mL/min (>60) Glucose Level 140 MG/DL (74-106) H Calcium Level 9.1 MG/DL (8.5-10.1) Phosphorus Level 2.2 MG/DL (2.5-4.9) L Magnesium Level 2.2 MG/DL (1.8-2.4) Total Bilirubin 0.3 MG/DL (0.2-1.0) Aspartate Amino Transf (AST/SGOT) 41 U/L (15-37) H Alanine Aminotransferase (ALT/SGPT) 57 U/L (12-78) Alkaline Phosphatase 305 U/L (46-116) H Total Protein 4.1 G/DL (6.4-8.2) L Albumin 1.4 G/DL (3.4-5.0) L Globulin 2.7 g/dL Albumin/Globulin Ratio 0.5 (1.0-2.7) L Arterial Blood pH 7.380 (7.350-7.450) Arterial Blood Partial Pressure CO2 28.4 mmHg (35.0-45.0) L Arterial Blood Partial Pressure O2 130.8 mmHg (75.0-100.0) H Arterial Blood HCO3 16.4 mmol/L (22.0-26.0) *L Arterial Blood Oxygen Saturation 98.3 % (95-100) Arterial Blood Base Excess -7.6 (-2-2) L Silas Test Positive Current Medications Medications (Trade) Dose Ordered Sig/Vane Route PRN Reason Start Time Stop Time Status Last Admin Dose Admin Acetaminophen (Tylenol) 650 mg Q4H PRN NG fever 05/04/19 09:30 05/31/19 12:44 05/04/19 10:00 Calcitonin Perryman (Miacalcin) 1 sprays DAILY NASAL 05/04/19 09:00 06/03/19 08:59 05/10/19 08:22 Chlorhexidine Gluconate (Shanice-Hex 2%) 1 applic DAILY@2000 TOPIC 05/01/19 20:00 05/31/19 19:59 05/09/19 21:11 Dextrose (Dextrose 50%) 25 ml Q30M PRN IV Hypoglycemia 05/02/19 06:30 06/01/19 06:29 Dextrose (Dextrose 50%) 50 ml Q30M PRN IV Hypoglycemia 05/02/19 06:30 06/01/19 06:29 Heparin Sodium (Porcine) (Heparin 5000 units/ml) 5,000 units EVERY 12 HOURS SUBQ 05/01/19 21:00 05/31/19 20:59 05/10/19 08:23 Insulin Aspart (NovoLOG) EVERY 6 HOURS SUBQ 05/02/19 07:30 06/01/19 07:29 05/10/19 11:45 Linezolid (Zyvox) 600 mg EVERY 12 HOURS ORAL 05/04/19 21:00 05/11/19 23:59 05/10/19 08:22 Meropenem 1 gm/ Sodium Chloride 55 ml @ 110 mls/hr Q8HR IVPB 05/05/19 22:00 05/11/19 23:59 05/10/19 13:15 Midodrine (Pro-Amatine) 5 mg THREE TIMES A DAY NG 05/06/19 13:00 06/04/19 12:59 05/10/19 13:15 Norepinephrine Bitartrate 4 mg/ Dextrose 254 ml @ 0 mls/hr Q24H IV 05/01/19 12:45 05/31/19 12:44 05/04/19 18:15 Ondansetron HCl (Zofran) 4 mg Q6H PRN IVP Nausea & Vomiting 05/01/19 12:45 05/31/19 12:44 Pantoprazole (Protonix) 40 mg Q12HR IV 05/01/19 21:00 06/01/19 08:59 05/10/19 08:22 Potassium Chloride (K-Dur) 20 meq TWICE A DAY NG 05/04/19 09:18 06/03/19 09:17 05/10/19 08:23 Risperidone (RisperDAL) 0.25 mg QHS PRN GT Agitation 05/02/19 07:30 06/01/19 07:29 Jennifer Palm MD May 10, 2019 16:09
--- NOTE | 2019-05-10 18:15 | Progress Note ---
DATE: 05/10/2019 SUBJECTIVE: This is a 78-year-old female patient with respiratory failure. The patient continues to have altered mental status, confusion, and decline in cognition below baseline. That is why, her attending has requested daily psychiatric consultation. She has got confusion, disorganized thought process, mood lability, decline in cognition below baseline. That is why, she does require inpatient treatment at this time. As far as this patient's she has a history of pulmonary suggestions, septic shock, dehydration, hypertension, respiratory failure, pneumonia, anxiety, significant decline in cognition below baseline, so I saw and assessed the patient in ICU. Still has some depression. DIAGNOSIS: Major depressive disorder, severe, recurrent with psychotic features, rule out dementia with psychosis. PLAN: Treat this patient with a medication regimen consisting of Risperdal 0.25 mg per G-tube at bedtime p.r.n. anxiety, agitation. The patient will continued to be followed throughout hospital course. She has significant decline in cognition below baseline. seen and assessed at bedside in ICU. Kristen Rodgers M.D. DR: HARRIS JOB#: [id number] CC:
--- NOTE | 2019-05-10 18:17 | NUR ---
NURSE NOTES: Patient had diarrhea, inserted rectal tube, intact, draining brown liquid stool noted. HOB kept elevated.
--- NOTE | 2019-05-10 19:17 | NUR ---
HAND-OFF: Report given to MONA Doyle.
--- NOTE | 2019-05-10 19:28 | Cardiology Progress Note ---
Assessment/Plan Assessment/Plan 1. Acute febrile illness, sepsis. 2. Hypotension. 3. Possible pneumonia/ respiratory failure acute 4. Urinary tract infection? 5. Hypernatremia. 6. Renal insufficiency and failure. 7. Dementia. 8. G-tube placement. 9. anemia 10. thrombocytopenia 11. lactic acidosis 12. hyperglycemia improved iv abx vent support failed weaning again 05/09 plt normal abn trop noted demand related cxr personally reviewed looks ok d/w rn pulm toilette echo lv fxn normal cxr personally reviewed looks god tele personally reviewed more awake today wean to extubate when feasible Subjective ROS Limited/Unobtainable: Yes Objective Last 24 Hour Vital Signs Date Time Temp Pulse Resp B/P (MAP) Pulse Ox O2 Delivery O2 Flow Rate FiO2 05/10/19 19:00 69 16 112/41 (64) 99 05/10/19 18:00 75 16 115/43 (67) 100 05/10/19 17:00 66 16 103/41 (61) 99 05/10/19 16:00 Mechanical Ventilator 05/10/19 16:00 98.8 70 16 99/48 (65) 100 05/10/19 16:00 30 05/10/19 16:00 68 05/10/19 15:43 71 16 30 05/10/19 15:00 66 16 113/40 (64) 100 05/10/19 14:39 71 16 30 05/10/19 14:00 67 16 104/49 (67) 100 05/10/19 13:02 69 16 30 05/10/19 13:00 70 16 101/35 (57) 100 05/10/19 12:00 30 05/10/19 12:00 67 05/10/19 12:00 98.9 66 16 103/43 (63) 99 05/10/19 12:00 Mechanical Ventilator 05/10/19 11:00 71 16 108/42 (64) 99 05/10/19 11:00 68 16 30 05/10/19 10:00 71 16 110/38 (62) 99 05/10/19 09:00 71 16 110/38 (62) 99 05/10/19 08:48 99 05/10/19 08:48 72 18 30 05/10/19 08:00 Mechanical Ventilator 05/10/19 08:00 73 05/10/19 08:00 98.6 70 16 109/37 (61) 99 05/10/19 08:00 30 05/10/19 07:15 70 17 30 05/10/19 07:00 68 16 105/42 (63) 99 05/10/19 06:00 69 16 132/110 (117) 99 05/10/19 05:00 68 16 110/40 (63) 99 05/10/19 04:47 66 16 30 05/10/19 04:00 30 05/10/19 04:00 Mechanical Ventilator 05/10/19 04:00 98.3 69 16 115/38 (63) 99 05/10/19 03:28 71 05/10/19 03:00 69 17 119/47 (71) 99 05/10/19 02:55 70 18 30 05/10/19 02:00 68 16 104/42 (62) 99 05/10/19 01:00 73 16 100/39 (59) 99 05/10/19 01:00 73 16 30 05/10/19 00:08 74 05/10/19 00:00 Mechanical Ventilator 05/10/19 00:00 30 05/10/19 00:00 99.1 71 16 102/40 (60) 99 05/09/19 23:12 69 16 30 05/09/19 23:00 73 16 109/39 (62) 99 05/09/19 22:00 74 16 102/40 (60) 99 05/09/19 21:22 72 16 30 05/09/19 21:00 76 16 109/39 (62) 99 05/09/19 20:04 82 05/09/19 20:00 Mechanical Ventilator 05/09/19 20:00 30 05/09/19 20:00 99.3 81 16 101/42 (61) 98 General Appearance: no apparent distress, alert, on vent, patient on isolation Cardiovascular: normal rate Respiratory/Chest: lungs clear Abdomen: normal bowel sounds, non tender, soft Extremities: no swelling Intake and Output 05/09/19 05/10/19 19:00 07:00 Intake Total 1075 ml 840 ml Output Total 830 ml 650 ml Balance 245 ml 190 ml Free Water 120 ml 30 ml IV Total 355 ml 110 ml Tube Feeding 600 ml 600 ml Other 100 ml Output Urine Total 830 ml 650 ml # Bowel Movements 1 4 Laboratory Tests Test 05/10/19 04:20 05/10/19 08:51 White Blood Count 7.6 K/UL (4.8-10.8) Red Blood Count 3.04 M/UL (4.20-5.40) L Hemoglobin 8.9 G/DL (12.0-16.0) L Hematocrit 27.2 % (37.0-47.0) L Mean Corpuscular Volume 89 FL (80-99) Mean Corpuscular Hemoglobin 29.4 PG (27.0-31.0) Mean Corpuscular Hemoglobin Concent 32.8 G/DL (32.0-36.0) Red Cell Distribution Width 16.0 % (11.6-14.8) H Platelet Count 224 K/UL (150-450) Mean Platelet Volume 5.6 FL (6.5-10.1) L Neutrophils (%) (Auto) 71.7 % (45.0-75.0) Lymphocytes (%) (Auto) 21.5 % (20.0-45.0) Monocytes (%) (Auto) 3.5 % (1.0-10.0) Eosinophils (%) (Auto) 2.5 % (0.0-3.0) Basophils (%) (Auto) 0.8 % (0.0-2.0) Sodium Level 136 MMOL/L (136-145) Potassium Level 4.7 MMOL/L (3.5-5.1) Chloride Level 109 MMOL/L (98-107) H Carbon Dioxide Level 19 MMOL/L (21-32) L Anion Gap 8 mmol/L (5-15) Blood Urea Nitrogen 34 mg/dL (7-18) H Creatinine 1.2 MG/DL (0.55-1.30) Estimat Glomerular Filtration Rate mL/min (>60) Glucose Level 140 MG/DL (74-106) H Calcium Level 9.1 MG/DL (8.5-10.1) Phosphorus Level 2.2 MG/DL (2.5-4.9) L Magnesium Level 2.2 MG/DL (1.8-2.4) Total Bilirubin 0.3 MG/DL (0.2-1.0) Aspartate Amino Transf (AST/SGOT) 41 U/L (15-37) H Alanine Aminotransferase (ALT/SGPT) 57 U/L (12-78) Alkaline Phosphatase 305 U/L (46-116) H Total Protein 4.1 G/DL (6.4-8.2) L Albumin 1.4 G/DL (3.4-5.0) L Globulin 2.7 g/dL Albumin/Globulin Ratio 0.5 (1.0-2.7) L Arterial Blood pH 7.380 (7.350-7.450) Arterial Blood Partial Pressure CO2 28.4 mmHg (35.0-45.0) L Arterial Blood Partial Pressure O2 130.8 mmHg (75.0-100.0) H Arterial Blood HCO3 16.4 mmol/L (22.0-26.0) *L Arterial Blood Oxygen Saturation 98.3 % (95-100) Arterial Blood Base Excess -7.6 (-2-2) L Silas Test Positive Objective Current Medications Medications (Trade) Dose Ordered Sig/Vane Route PRN Reason Start Time Stop Time Status Last Admin Dose Admin Acetaminophen (Tylenol) 650 mg Q4H PRN ORAL fever 05/01/19 12:45 05/31/19 12:44 Albuterol/ Ipratropium (Albuterol/ Ipratropium) 3 ml Q4H PRN HHN Shortness of Breath 05/01/19 12:45 05/06/19 12:44 Amikacin Protocol (Amikacin pharmacy to dose) 1 ea DAILY PRN MISC . 05/01/19 12:45 05/31/19 12:44 Amikacin Sulfate 500 mg/Sodium Chloride 112 ml @ 112 mls/hr Q24H IV 05/01/19 18:00 05/08/19 17:59 05/01/19 18:04 Chlorhexidine Gluconate (Shanice-Hex 2%) 1 applic DAILY@2000 TOPIC 05/01/19 20:00 05/31/19 19:59 05/01/19 19:48 Dextrose (Dextrose 50%) 25 ml Q30M PRN IV Hypoglycemia 05/02/19 06:30 06/01/19 06:29 Dextrose (Dextrose 50%) 50 ml Q30M PRN IV Hypoglycemia 05/02/19 06:30 06/01/19 06:29 Ertapenem 0.5 gm/ Sodium Chloride 55 ml @ 110 mls/hr Q24H IV 05/01/19 21:00 05/06/19 20:59 05/01/19 21:15 Heparin Sodium (Porcine) (Heparin 5000 units/ml) 5,000 units EVERY 12 HOURS SUBQ 05/01/19 21:00 05/31/19 20:59 05/01/19 21:17 Insulin Aspart (NovoLOG) EVERY 6 HOURS SUBQ 05/02/19 07:30 06/01/19 07:29 05/02/19 08:42 Lorazepam (Ativan 2mg/ml 1ml) 2 mg Q2H PRN IV For Anxiety 05/01/19 12:45 05/08/19 12:44 05/02/19 11:48 Lorazepam (Ativan) 0.5 mg Q6H PRN ORAL For Anxiety 05/02/19 07:30 05/09/19 07:29 Magnesium Sulfate 100 ml @ 100 mls/hr Q1H IVPB 05/02/19 10:00 05/02/19 13:59 05/02/19 11:03 Morphine Sulfate (Morphine Sulfate) 4 mg Q4H PRN IVP Severe Pain (Pain Scale 7-10) 05/01/19 12:45 05/08/19 12:44 Norepinephrine Bitartrate 4 mg/ Dextrose 254 ml @ 0 mls/hr Q24H IV 05/01/19 12:45 05/31/19 12:44 05/01/19 15:45 Ondansetron HCl (Zofran) 4 mg Q6H PRN IVP Nausea & Vomiting 05/01/19 12:45 05/31/19 12:44 Pantoprazole (Protonix) 40 mg Q12HR IV 05/01/19 21:00 06/01/19 08:59 05/02/19 08:29 Potassium Phosphate 20 mm/ Sodium Chloride 281.6667 ml @ 46.944 m... ONCE ONCE IV 05/02/19 11:00 05/02/19 16:59 05/02/19 11:02 Potassium Chloride 100 ml @ 100 mls/hr Q1HR IVPB 05/02/19 10:00 05/02/19 13:59 05/02/19 11:02 Risperidone (RisperDAL) 0.25 mg QHS PRN GT Agitation 05/02/19 07:30 06/01/19 07:29 Sodium Chloride 1,000 ml @ 75 mls/hr [id number] IV 05/02/19 10:39 06/01/19 10:38 05/02/19 11:02 Vancomycin HCl (Vanco rx to dose) 1 ea DAILY PRN MISC . 05/01/19 12:45 05/31/19 12:44 Martin Sarmiento MD May 10, 2019 19:28
--- NOTE | 2019-05-10 20:00 | NUR ---
NURSE NOTES: received pt cathy wells open eyes touch orally intubated o2 sat 100 0/0 reposition and suction iv infusing rt upper dressing dry and intact cont monitor pt
--- NOTE | 2019-05-10 20:00 | NUR ---
NURSE NOTES: received pt fr hiedi rn pt orally intubated -vent o2sat 100 open eye to touch does not follows command reposition and suction cont
[2019-05-10] MEDS: Dyna-Hex 2% Top Sol 2oz TOPIC SCH (21:30)
--- NOTE | 2019-05-10 22:00 | NUR ---
NURSE NOTES: condition un change
--- NOTE | 2019-05-10 23:18 | NUR ---
RESPIRATORY NOTE: PT RECEIVED STABLE ON CMV. AC/VC: 16, 500,30%, +5. ALARMS ARE ON AND AUDIBLE. NO S/S OF RESPIRATORY DISTRESS NOTED AT THIS TIME. WILL CONTINUE TO MONITOR.
[2019-05-11] VITALS (24 sets, daily range): BP systolic 105–140; BP diastolic 39–97
--- NOTE | 2019-05-11 | NUR ---
NURSE NOTES: reposition and suction no respiratory distress noted
[2019-05-11] MEDS: NovoLOG Insulin Flexpen SUBQ SCH ×4 (00:03→17:34)
--- NOTE | 2019-05-11 02:00 | NUR ---
NURSE NOTES: reposition and suction no acute resp distress noted
--- NOTE | 2019-05-11 04:00 | NUR ---
NURSE NOTES: complete bed bath done and wound care done
--- NOTE | 2019-05-11 05:15 | NUR ---
RESPIRATORY NOTE: PT REMAINED STABLE ON CMV WITH CURRENT SETTINGS. VENT CIRCUIT SECURE AND OUT OF THE WAY. NO S/S OF RESPIRATORY DISTRESS NOTED AT THIS TIME. ANCHOR FAST NOT CHANGED BECAUSE IT WAS CHANGED BY PREVIOUS THERAPIST.
[2019-05-11 05:54] LABS: BASOPHILS % (AUTO) 0.9 % (0.0-2.0); EOSINOPHILS % (AUTO) 1.8 % (0.0-3.0); HEMATOCRIT 27.2 % (37.0-47.0); HEMOGLOBIN 8.9 G/DL (12.0-16.0); LYMPHOCYTES % (AUTO) 20.8 % (20.0-45.0); MEAN CORPUSCULAR VOLUME 90 FL (80-99); MONOCYTES % (AUTO) 3.7 % (1.0-10.0); NEUTROPHILS % (AUTO) 72.8 % (45.0-75.0); PLATELET COUNT 241 K/UL (150-450); RED BLOOD COUNT 3.04 M/UL (4.20-5.40); RED CELL DISTRIBUTION WIDTH 15.8 % (11.6-14.8); WHITE BLOOD COUNT 7.3 K/UL (4.8-10.8)
[2019-05-11] MEDS: Meropenem 1 GM in NS 55 ML IVPB SCH ×3 (05:59→21:21)
--- NOTE | 2019-05-11 06:00 | NUR ---
NURSE NOTES: bs 130 insulin coverage given as order
[2019-05-11 06:10] LABS: PHOSPHORUS 2.8 MG/DL (2.5-4.9)
[2019-05-11 06:27] LABS: ALANINE AMINOTRANSFERASE 53 U/L (12-78); ALBUMIN 1.4 G/DL (3.4-5.0); ALBUMIN/GLOBULIN RATIO 0.5 (1.0-2.7); ALKALINE PHOSPHATASE 305 U/L (46-116); ANION GAP 8 mmol/L (5-15); ASPARTATE AMINO TRANSFERASE 34 U/L (15-37); BILIRUBIN,TOTAL 0.2 MG/DL (0.2-1.0); BLOOD UREA NITROGEN 35 mg/dL (7-18); CARBON DIOXIDE 19 MMOL/L (21-32); CHLORIDE 110 MMOL/L (98-107); CREATININE 1.1 MG/DL (0.55-1.30); POTASSIUM 4.6 MMOL/L (3.5-5.1); SODIUM 137 MMOL/L (136-145)
--- NOTE | 2019-05-11 07:36 | NUR ---
HAND-OFF: Report given to alayna gonzalez rn using sbar.
--- NOTE | 2019-05-11 07:37 | NUR ---
NURSE NOTES: Report received from MONA Doyle. Pt is awake and able to make eye contacts. Unable to follow commands. Non-verbal. Sinus rhythm on cardiac care unit nurse. ETT 7.5 at 22cm lip line. AC 16, TV 500, FiO2 30%, P 5. O2 sat 100%. G-tube in place receiving Glucerna 1.5. at 50cc/hr. No residual noted. Hilario and rectal tube in place draining to gravity. COURTNEY PICC line patent and asymptomatic. Bed in lowest position. Side rails up x3. Will resume plan of care. Addendum: 05/12/19 at 0744 by JOSÉ MIGUEL KING RN RN NURSE NOTES: Report received from MONA Doyle. Pt is awake and able to make eye contacts. Unable to follow commands. Non-verbal. Sinus rhythm on cardiac care unit nurse. ETT 7.5 at 22cm lip line. AC 16, TV 500, FiO2 30%, P 5. O2 sat 100%. G-tube in place receiving Glucerna 1.2 at 50cc/hr. No residual noted. Hilario and rectal tube in place draining to gravity. COURTNEY PICC line patent and asymptomatic. Bed in lowest position. Side rails up x3. Will resume plan of care.
--- NOTE | 2019-05-11 08:46 | NUR ---
NURSE NOTES: Pt lasted about 10 mins on CPAP, PS 8 since RR went up as per RT.
--- NOTE | 2019-05-11 09:00 | NUR ---
NURSE NOTES: Turned and repositioned pt. Oral care done. Dr Ho here to see the patient. Updated him with pt's current condition. No new orders.
--- NOTE | 2019-05-11 09:03 | NUR ---
RADIOLOGY DEPT., CHEST X-RAY DONE.-P.DYE
[2019-05-11] MEDS: Pantoprazole Inj IV SCH ×2 (09:10→21:08)
[2019-05-11] MEDS: Heparin 5000 units/ml inj SUBQ SCH ×2 (09:12→21:10)
--- NOTE | 2019-05-11 09:29 | Nephrology Progress Note ---
Assessment/Plan Problem List: (1) Hypercalcemia Assessment: improving (2) Septic shock (3) Acute kidney injury (4) Acute respiratory failure (5) Dehydration (6) Anemia Assessment Acute renal failure Dehydration / HyperNatremia / HyperCalcemia Septic Shock Respiratory failure / COPD NSTEMI DM PEG Schizophrenia Anemia Plan Aredia 90 mg IV and Nasal Calcitonin correct lytes prn Lasix trial Midodrine ? weaning vs Trach IV fluid change to 1/2 NS K and Phos and Mag supplement as needed monitor renal parameters and Calcium urine studies anemia au avoid Nephrotoxics Subjective ROS Limited/Unobtainable: Yes Objective Objective Last 24 Hour Vital Signs Date Time Temp Pulse Resp B/P (MAP) Pulse Ox O2 Delivery O2 Flow Rate FiO2 05/11/19 09:00 66 16 120/46 (70) 99 05/11/19 08:46 30 05/11/19 08:38 73 29 30 05/11/19 08:38 100 05/11/19 08:36 30 05/11/19 08:00 99.1 65 17 109/45 (66) 100 05/11/19 08:00 30 05/11/19 07:28 65 16 30 05/11/19 07:00 63 16 106/41 (62) 100 05/11/19 06:00 68 18 106/47 (66) 100 05/11/19 05:15 64 16 30 05/11/19 05:00 62 16 109/40 (63) 100 05/11/19 04:00 65 05/11/19 04:00 98.4 66 17 114/45 (68) 100 05/11/19 04:00 30 05/11/19 04:00 Mechanical Ventilator 05/11/19 03:09 59 16 30 05/11/19 03:00 61 16 118/41 (66) 100 05/11/19 02:00 60 16 106/39 (61) 99 05/11/19 01:25 62 17 30 05/11/19 01:00 63 16 110/49 (69) 99 05/11/19 00:00 65 05/11/19 00:00 98.5 64 16 105/39 (61) 100 05/11/19 00:00 Mechanical Ventilator 05/11/19 00:00 64 16 105/39 (61) 100 05/10/19 23:18 65 16 30 05/10/19 23:00 63 16 107/39 (61) 99 05/10/19 22:00 65 16 105/40 (61) 99 05/10/19 21:00 70 15 116/34 (61) 99 05/10/19 21:00 66 15 30 05/10/19 20:00 30 05/10/19 20:00 Mechanical Ventilator 05/10/19 20:00 68 05/10/19 20:00 98.5 76 18 115/39 (64) 98 05/10/19 19:10 69 15 30 05/10/19 19:00 69 16 112/41 (64) 99 05/10/19 18:00 75 16 115/43 (67) 100 05/10/19 17:00 66 16 103/41 (61) 99 05/10/19 16:00 Mechanical Ventilator 05/10/19 16:00 98.8 70 16 99/48 (65) 100 05/10/19 16:00 30 05/10/19 16:00 68 05/10/19 15:43 71 16 30 05/10/19 15:00 66 16 113/40 (64) 100 05/10/19 14:39 71 16 30 05/10/19 14:00 67 16 104/49 (67) 100 05/10/19 13:02 69 16 30 05/10/19 13:00 70 16 101/35 (57) 100 05/10/19 12:00 30 05/10/19 12:00 67 05/10/19 12:00 98.9 66 16 103/43 (63) 99 05/10/19 12:00 Mechanical Ventilator 05/10/19 11:00 71 16 108/42 (64) 99 05/10/19 11:00 68 16 30 05/10/19 10:00 71 16 110/38 (62) 99 Intake and Output 05/10/19 05/11/19 19:00 07:00 Intake Total 1195.000 ml 705 ml Output Total 710 ml 635 ml Balance 485.000 ml 70 ml Free Water 260 ml 50 ml IV Total 335.000 ml 55 ml Tube Feeding 600 ml 600 ml Output Urine Total 710 ml 635 ml # Bowel Movements 5 156 Laboratory Tests 05/11/19 04:45: White Blood Count 7.3, Red Blood Count 3.04L, Hemoglobin 8.9L, Hematocrit 27.2L , Mean Corpuscular Volume 90, Mean Corpuscular Hemoglobin 29.4, Mean Corpuscular Hemoglobin Concent 32.9, Red Cell Distribution Width 15.8H, Platelet Count 241, Mean Platelet Volume 5.1L, Neutrophils (%) (Auto) 72.8, Lymphocytes (%) (Auto) 20.8, Monocytes (%) (Auto) 3.7, Eosinophils (%) (Auto) 1.8, Basophils (%) (Auto) 0.9, Sodium Level 137, Potassium Level 4.6, Chloride Level 110H, Carbon Dioxide Level 19L, Anion Gap 8, Blood Urea Nitrogen 35H, Creatinine 1.1, Estimat Glomerular Filtration Rate , Glucose Level 140H, Calcium Level 9.0, Phosphorus Level 2.8, Magnesium Level 2.0, Total Bilirubin 0.2, Aspartate Amino Transf (AST/SGOT) 34, Alanine Aminotransferase (ALT/SGPT) 53, Alkaline Phosphatase 305H, Total Protein 4.3L, Albumin 1.4L, Globulin 2.9, Albumin/Globulin Ratio 0.5L 05/11/19 09:07: Arterial Blood pH 7.510H, Arterial Blood Partial Pressure CO2 20.0*L, Arterial Blood Partial Pressure O2 134.7H, Arterial Blood HCO3 15.6*L, Arterial Blood Oxygen Saturation 98.1, Arterial Blood Base Excess -5.9L, Silas Test Positive Height (Feet): 5 Height (Inches): 7.00 Weight (Pounds): 118 General Appearance: no apparent distress EENT: other - vented Respiratory/Chest: decreased breath sounds Abdomen: distended Objective no change Fox Ho MD May 11, 2019 09:29
--- NOTE | 2019-05-11 10:17 | NUR ---
NURSE NOTES: Called and left a message to Dr Lai regarding ABG result. Awaiting call back for new orders.
--- NOTE | 2019-05-11 10:39 | NUR ---
NURSE NOTES: Dr Lai called back and ordered to change Vent setting. Order received, noted, and carried out. Notified RT.
--- NOTE | 2019-05-11 11:32 | Surgery Progress Note ---
Surgery Progress Note Subjective Additional Comments ill appearing in ICU less responsive today exam unchanged on vent support difficult to wean may need trach discussed with RN and will discuss with PCP / team cont current tx Objective Last 24 Hour Vital Signs Date Time Temp Pulse Resp B/P (MAP) Pulse Ox O2 Delivery O2 Flow Rate FiO2 05/11/19 10:30 64 21 30 05/11/19 10:16 63 27 100 Mechanical Ventilator 30 05/11/19 09:00 66 16 120/46 (70) 99 05/11/19 08:46 30 05/11/19 08:38 73 29 30 05/11/19 08:38 100 05/11/19 08:36 30 05/11/19 08:00 99.1 65 17 109/45 (66) 100 05/11/19 08:00 30 05/11/19 07:28 65 16 30 05/11/19 07:00 63 16 106/41 (62) 100 05/11/19 06:00 68 18 106/47 (66) 100 05/11/19 05:15 64 16 30 05/11/19 05:00 62 16 109/40 (63) 100 05/11/19 04:00 65 05/11/19 04:00 98.4 66 17 114/45 (68) 100 05/11/19 04:00 30 05/11/19 04:00 Mechanical Ventilator 05/11/19 03:09 59 16 30 05/11/19 03:00 61 16 118/41 (66) 100 05/11/19 02:00 60 16 106/39 (61) 99 05/11/19 01:25 62 17 30 05/11/19 01:00 63 16 110/49 (69) 99 05/11/19 00:00 65 05/11/19 00:00 98.5 64 16 105/39 (61) 100 05/11/19 00:00 Mechanical Ventilator 05/11/19 00:00 64 16 105/39 (61) 100 05/10/19 23:18 65 16 30 05/10/19 23:00 63 16 107/39 (61) 99 05/10/19 22:00 65 16 105/40 (61) 99 05/10/19 21:00 70 15 116/34 (61) 99 05/10/19 21:00 66 15 30 05/10/19 20:00 30 05/10/19 20:00 Mechanical Ventilator 05/10/19 20:00 68 05/10/19 20:00 98.5 76 18 115/39 (64) 98 05/10/19 19:10 69 15 30 05/10/19 19:00 69 16 112/41 (64) 99 05/10/19 18:00 75 16 115/43 (67) 100 05/10/19 17:00 66 16 103/41 (61) 99 05/10/19 16:00 Mechanical Ventilator 05/10/19 16:00 98.8 70 16 99/48 (65) 100 05/10/19 16:00 30 05/10/19 16:00 68 05/10/19 15:43 71 16 30 05/10/19 15:00 66 16 113/40 (64) 100 05/10/19 14:39 71 16 30 05/10/19 14:00 67 16 104/49 (67) 100 05/10/19 13:02 69 16 30 05/10/19 13:00 70 16 101/35 (57) 100 05/10/19 12:00 30 05/10/19 12:00 67 05/10/19 12:00 98.9 66 16 103/43 (63) 99 05/10/19 12:00 Mechanical Ventilator I&O Intake and Output 05/10/19 05/11/19 19:00 07:00 Intake Total 1195.000 ml 705 ml Output Total 710 ml 635 ml Balance 485.000 ml 70 ml Free Water 260 ml 50 ml IV Total 335.000 ml 55 ml Tube Feeding 600 ml 600 ml Output Urine Total 710 ml 635 ml # Bowel Movements 5 156 Laboratory Tests Test 05/11/19 04:45 05/11/19 09:07 White Blood Count 7.3 K/UL (4.8-10.8) Red Blood Count 3.04 M/UL (4.20-5.40) L Hemoglobin 8.9 G/DL (12.0-16.0) L Hematocrit 27.2 % (37.0-47.0) L Mean Corpuscular Volume 90 FL (80-99) Mean Corpuscular Hemoglobin 29.4 PG (27.0-31.0) Mean Corpuscular Hemoglobin Concent 32.9 G/DL (32.0-36.0) Red Cell Distribution Width 15.8 % (11.6-14.8) H Platelet Count 241 K/UL (150-450) Mean Platelet Volume 5.1 FL (6.5-10.1) L Neutrophils (%) (Auto) 72.8 % (45.0-75.0) Lymphocytes (%) (Auto) 20.8 % (20.0-45.0) Monocytes (%) (Auto) 3.7 % (1.0-10.0) Eosinophils (%) (Auto) 1.8 % (0.0-3.0) Basophils (%) (Auto) 0.9 % (0.0-2.0) Sodium Level 137 MMOL/L (136-145) Potassium Level 4.6 MMOL/L (3.5-5.1) Chloride Level 110 MMOL/L (98-107) H Carbon Dioxide Level 19 MMOL/L (21-32) L Anion Gap 8 mmol/L (5-15) Blood Urea Nitrogen 35 mg/dL (7-18) H Creatinine 1.1 MG/DL (0.55-1.30) Estimat Glomerular Filtration Rate mL/min (>60) Glucose Level 140 MG/DL (74-106) H Calcium Level 9.0 MG/DL (8.5-10.1) Phosphorus Level 2.8 MG/DL (2.5-4.9) Magnesium Level 2.0 MG/DL (1.8-2.4) Total Bilirubin 0.2 MG/DL (0.2-1.0) Aspartate Amino Transf (AST/SGOT) 34 U/L (15-37) Alanine Aminotransferase (ALT/SGPT) 53 U/L (12-78) Alkaline Phosphatase 305 U/L (46-116) H Total Protein 4.3 G/DL (6.4-8.2) L Albumin 1.4 G/DL (3.4-5.0) L Globulin 2.9 g/dL Albumin/Globulin Ratio 0.5 (1.0-2.7) L Arterial Blood pH 7.510 (7.350-7.450) Arterial Blood Partial Pressure CO2 20.0 mmHg (35.0-45.0) *L Arterial Blood Partial Pressure O2 134.7 mmHg (75.0-100.0) H Arterial Blood HCO3 15.6 mmol/L (22.0-26.0) *L Arterial Blood Oxygen Saturation 98.1 % (95-100) Arterial Blood Base Excess -5.9 (-2-2) L Silas Test Positive Plan Problems: (1) Sacral decubitus ulcer, stage III Assessment & Plan: Patient presented on admission with multiple pressure injuries noted. Patient seen by team during admission and I was called on to evaluate patient Full Thickness Stage III Pressure injury sacrum. Base of wound 100% necrotic with red margins(L)2.5cm x (W)2.7cm with surrounding maroon and indurated borders (L)7.5cm x (W)8.5cm. Periwound soft and with edema. Maroon and indurated area noted to R buttocks. Non-blanching erythema noted to R trochanteric.(L)6.5cm x (W)7.5cm. Elongated wound noted to medial/posterior R thigh(L)0.6cm x (W)5.2cm. L heel boggy with non-blanching erythema. Non-Blanchable erythema R heel without fluctuance. Recommendations: Wash wounds daily with NS or soap/water Apply therahoney or hydrogel impregnated gauze to sacral wound, cover with foam dressing daily and prn saturation Will need to monitor for incontinence as she is having loose stools and need diligent care as can worsen wound Apply foam dressing to R hip, change q3 days bilateral heel foam dressings APM/SOILA Mattress overlay. Reposition at least every 2hours or as tolerated. Off-load heels with Pillow. nutritional optimization will follow with recs thank you (2) Malnutrition Assessment & Plan: DAILY ESTIMATED NEEDS: Needs based on Critical care, wounds; 48.6kg 22- 30 kcals/kg 4438-0579 total kcals 1.25-2 g protein/kg 61-97 g total protein 25-30 mL/kg 4296-5444 total fluid mLs NUTRITION DIAGNOSIS: 1) Increased kcal and pro needs r/t wound healing AEB pt adm w/ multiple wounds, including full thickness sacral wounds, refer to WC eval. 2) Swallowing difficulty r/t respiratory status AEB pt is intubated, Peg dep, TF at low rate for elev residuals. CURRENT TF:Glucerna 1.2 @50-> now @20ml/hr ENTERAL NUTRITION RECOMMENDATIONS: VITAL AF 1.2 @ 45mL/hr x 24 hrs to provide 1080mL, 1296kcal, 81g pro, 876mL free H2O With continued elev residuals, rec TF change to VITAL 1.2 w/ goal rate of 45ml/ hr. - Start @15ml/hr until tolerated w/ no to little residuals. Advance 10ml/hr q4-6 hrs to goal rate TOLERATED. - Flush per . HOB over 30 degrees ADDITIONAL RECOMMENDATIONS: 1) Per SNF: 107 lbs, 60 inches 2) When pt is stable, see TF recs above. 3) Wound care: Add TANYA BID + Vit C 250mg BID -> Hold Tanya BID until TF is better tolerated w/ low to no residuals 4) Monitor lytes-> replete as needed 5) With continued elevated blood glucose, rec long acting insulin Monitor BG w/ active TF order (3) Failure to thrive in adult (4) Feeding by G-tube (5) Septic shock Assessment & Plan: labs noted exam as above wean vent as tolerated nutritional optimization trend labs abx as per ID will follow with recs will likely need trach soon as not weaning from vent thank you (6) Dehydration Ralph Roth May 11, 2019 11:32
--- NOTE | 2019-05-11 12:41 | NUR ---
NURSE NOTES: Dr Lau here to see the patient. Updated him with pt's current condition. No new orders.
--- NOTE | 2019-05-11 12:42 | Diagnostic Imaging Report ---
Indication: Dyspnea Comparison: 05/10/2019 A single view chest radiograph was obtained. Findings: PICC line and endotracheal tube positions are stable. Mild pulmonary vascular congestion suspected. Heart size is stable and within normal limits. Lung volumes remain low. IMPRESSION: Suspected mild pulmonary vascular congestion. Accounting for technical differences there may be little to no change.
--- NOTE | 2019-05-11 12:45 | General Progress Note ---
Assessment/Plan Status: stable Assessment/Plan: Assessment/Plan Problems: (1) Septic shock ICD Codes: A41.9 - Sepsis, unspecified organism; R65.21 - Severe sepsis with septic shock SNOMED: 90767779, 6267454 (2) Feeding by G-tube ICD Codes: Z93.1 - Gastrostomy status SNOMED: 815356579, 030137735, 059071944 (3) Diabetes mellitus ICD Codes: E11.9 - Type 2 diabetes mellitus without complications SNOMED: 73081138 (4) Anemia ICD Codes: D64.9 - Anemia, unspecified SNOMED: 037570780 Status: unchanged Status Narrative Assessment/Plan No plans for any GI procedures at this given time given the patient's elevated troponin level and hemodynamic instability. occult blood stool to evaluate for any GI bleed, negative Monitor H&H, PRN transfusions PPI GTFs Electrolyte correction, increase free water flushes for hypernatremia GT site care daily and as needed We will follow on a daily basis with additional recommendation Subjective ROS Limited/Unobtainable: No Allergies: Coded Allergies: No Known Allergies (Unverified , 05/01/19) Objective Last 24 Hour Vital Signs Date Time Temp Pulse Resp B/P (MAP) Pulse Ox O2 Delivery O2 Flow Rate FiO2 05/11/19 10:39 30 05/11/19 10:30 64 21 30 05/11/19 10:16 63 27 100 Mechanical Ventilator 30 05/11/19 09:00 66 16 120/46 (70) 99 05/11/19 08:46 30 05/11/19 08:38 73 29 30 05/11/19 08:38 100 05/11/19 08:36 30 05/11/19 08:00 99.1 65 17 109/45 (66) 100 05/11/19 08:00 30 05/11/19 07:28 65 16 30 05/11/19 07:00 63 16 106/41 (62) 100 05/11/19 06:00 68 18 106/47 (66) 100 05/11/19 05:15 64 16 30 05/11/19 05:00 62 16 109/40 (63) 100 05/11/19 04:00 65 05/11/19 04:00 98.4 66 17 114/45 (68) 100 05/11/19 04:00 30 05/11/19 04:00 Mechanical Ventilator 05/11/19 03:09 59 16 30 05/11/19 03:00 61 16 118/41 (66) 100 05/11/19 02:00 60 16 106/39 (61) 99 05/11/19 01:25 62 17 30 05/11/19 01:00 63 16 110/49 (69) 99 05/11/19 00:00 65 05/11/19 00:00 98.5 64 16 105/39 (61) 100 05/11/19 00:00 Mechanical Ventilator 05/11/19 00:00 64 16 105/39 (61) 100 05/10/19 23:18 65 16 30 05/10/19 23:00 63 16 107/39 (61) 99 05/10/19 22:00 65 16 105/40 (61) 99 05/10/19 21:00 70 15 116/34 (61) 99 05/10/19 21:00 66 15 30 05/10/19 20:00 30 05/10/19 20:00 Mechanical Ventilator 05/10/19 20:00 68 05/10/19 20:00 98.5 76 18 115/39 (64) 98 05/10/19 19:10 69 15 30 05/10/19 19:00 69 16 112/41 (64) 99 05/10/19 18:00 75 16 115/43 (67) 100 05/10/19 17:00 66 16 103/41 (61) 99 05/10/19 16:00 Mechanical Ventilator 05/10/19 16:00 98.8 70 16 99/48 (65) 100 05/10/19 16:00 30 05/10/19 16:00 68 05/10/19 15:43 71 16 30 05/10/19 15:00 66 16 113/40 (64) 100 05/10/19 14:39 71 16 30 05/10/19 14:00 67 16 104/49 (67) 100 05/10/19 13:02 69 16 30 05/10/19 13:00 70 16 101/35 (57) 100 Intake and Output 05/10/19 05/11/19 19:00 07:00 Intake Total 1195.000 ml 705 ml Output Total 710 ml 635 ml Balance 485.000 ml 70 ml Free Water 260 ml 50 ml IV Total 335.000 ml 55 ml Tube Feeding 600 ml 600 ml Output Urine Total 710 ml 635 ml # Bowel Movements 5 156 Laboratory Tests 05/11/19 04:45: White Blood Count 7.3, Red Blood Count 3.04L, Hemoglobin 8.9L, Hematocrit 27.2L , Mean Corpuscular Volume 90, Mean Corpuscular Hemoglobin 29.4, Mean Corpuscular Hemoglobin Concent 32.9, Red Cell Distribution Width 15.8H, Platelet Count 241, Mean Platelet Volume 5.1L, Neutrophils (%) (Auto) 72.8, Lymphocytes (%) (Auto) 20.8, Monocytes (%) (Auto) 3.7, Eosinophils (%) (Auto) 1.8, Basophils (%) (Auto) 0.9, Sodium Level 137, Potassium Level 4.6, Chloride Level 110H, Carbon Dioxide Level 19L, Anion Gap 8, Blood Urea Nitrogen 35H, Creatinine 1.1, Estimat Glomerular Filtration Rate , Glucose Level 140H, Calcium Level 9.0, Phosphorus Level 2.8, Magnesium Level 2.0, Total Bilirubin 0.2, Aspartate Amino Transf (AST/SGOT) 34, Alanine Aminotransferase (ALT/SGPT) 53, Alkaline Phosphatase 305H, Total Protein 4.3L, Albumin 1.4L, Globulin 2.9, Albumin/Globulin Ratio 0.5L 05/11/19 09:07: Arterial Blood pH 7.510H, Arterial Blood Partial Pressure CO2 20.0*L, Arterial Blood Partial Pressure O2 134.7H, Arterial Blood HCO3 15.6*L, Arterial Blood Oxygen Saturation 98.1, Arterial Blood Base Excess -5.9L, Silas Test Positive Height (Feet): 5 Height (Inches): 7.00 Weight (Pounds): 118 General Appearance: lethargic EENT: normal ENT inspection Neck: supple Cardiovascular: normal rate Respiratory/Chest: decreased breath sounds Abdomen: normal bowel sounds, non tender, soft Extremities: non-tender Alfredo Lau MD May 11, 2019 12:44
--- NOTE | 2019-05-11 12:54 | Pulmonolgy Critical Care Note ---
Critical Care - Asmt/Plan Problems: (1) Acute respiratory failure (2) Septic shock (3) COPD (chronic obstructive pulmonary disease) (4) Hypernatremia (5) Acute kidney injury (6) Hypertension (7) Diabetes mellitus (8) Feeding by G-tube Respiratory: monitor respiratory rate, adjust FIO2 Cardiac: start pressors Renal: F/U I&O, keep IV fluid, check electrolytes Infectious Disease: continue antibiotics Gastrointestinal: continue feedings/current rate Endocrine: monitor blood sugar, check TSH Hematologic: monitor H/H, transfuse if hgb<8.5 Neurologic: PRN Ativan, keep patient comfortable Affect: PRN ativan Prophylaxis: Heparin Notes Reviewed: tanning consultant, renal Discussed with: consultants, correctional counselor/case managerbusiness improvement manager - Objective Last 24 Hour Vital Signs Date Time Temp Pulse Resp B/P (MAP) Pulse Ox O2 Delivery O2 Flow Rate FiO2 05/11/19 12:00 Mechanical Ventilator 05/11/19 10:39 30 05/11/19 10:30 64 21 30 05/11/19 10:16 63 27 100 Mechanical Ventilator 30 05/11/19 09:00 66 16 120/46 (70) 99 05/11/19 08:46 30 05/11/19 08:38 73 29 30 05/11/19 08:38 100 05/11/19 08:36 30 05/11/19 08:00 99.1 65 17 109/45 (66) 100 05/11/19 08:00 Mechanical Ventilator 05/11/19 08:00 30 05/11/19 07:28 65 16 30 05/11/19 07:00 63 16 106/41 (62) 100 05/11/19 06:00 68 18 106/47 (66) 100 05/11/19 05:15 64 16 30 05/11/19 05:00 62 16 109/40 (63) 100 05/11/19 04:00 65 05/11/19 04:00 98.4 66 17 114/45 (68) 100 05/11/19 04:00 30 05/11/19 04:00 Mechanical Ventilator 05/11/19 03:09 59 16 30 05/11/19 03:00 61 16 118/41 (66) 100 05/11/19 02:00 60 16 106/39 (61) 99 05/11/19 01:25 62 17 30 05/11/19 01:00 63 16 110/49 (69) 99 05/11/19 00:00 65 05/11/19 00:00 98.5 64 16 105/39 (61) 100 05/11/19 00:00 Mechanical Ventilator 05/11/19 00:00 64 16 105/39 (61) 100 05/10/19 23:18 65 16 30 05/10/19 23:00 63 16 107/39 (61) 99 05/10/19 22:00 65 16 105/40 (61) 99 05/10/19 21:00 70 15 116/34 (61) 99 05/10/19 21:00 66 15 30 05/10/19 20:00 30 05/10/19 20:00 Mechanical Ventilator 05/10/19 20:00 68 05/10/19 20:00 98.5 76 18 115/39 (64) 98 05/10/19 19:10 69 15 30 05/10/19 19:00 69 16 112/41 (64) 99 05/10/19 18:00 75 16 115/43 (67) 100 05/10/19 17:00 66 16 103/41 (61) 99 05/10/19 16:00 Mechanical Ventilator 05/10/19 16:00 98.8 70 16 99/48 (65) 100 05/10/19 16:00 30 05/10/19 16:00 68 05/10/19 15:43 71 16 30 05/10/19 15:00 66 16 113/40 (64) 100 05/10/19 14:39 71 16 30 05/10/19 14:00 67 16 104/49 (67) 100 05/10/19 13:02 69 16 30 05/10/19 13:00 70 16 101/35 (57) 100 Status: awake Condition: critical Lungs: chest wall tender Heart: HR/BP stable, regular Abdomen: active bowel sounds Extremities: no C/C/E, edema Decubiti: stage Accucheck: 130 Critical Care - Subjective ROS Limited/Unobtainable: Yes Condition: critical EKG Rhythm: Sinus Rhythm FI02: 30 Vent Support Breath Rate: 12 Vent Support Mode: AC Vent Tidal Volume: 500 Sputum Amount: Small PEEP: 5.0 PIP: 24 Tube Feeding Amount: 50 I&O: Intake and Output 05/10/19 05/11/19 19:00 07:00 Intake Total 1195.000 ml 705 ml Output Total 710 ml 635 ml Balance 485.000 ml 70 ml Free Water 260 ml 50 ml IV Total 335.000 ml 55 ml Tube Feeding 600 ml 600 ml Output Urine Total 710 ml 635 ml # Bowel Movements 5 156 ET-Tube: 7.5 ET Position: 22 Labs: Laboratory Tests Test 05/11/19 04:45 05/11/19 09:07 White Blood Count 7.3 K/UL (4.8-10.8) Red Blood Count 3.04 M/UL (4.20-5.40) L Hemoglobin 8.9 G/DL (12.0-16.0) L Hematocrit 27.2 % (37.0-47.0) L Mean Corpuscular Volume 90 FL (80-99) Mean Corpuscular Hemoglobin 29.4 PG (27.0-31.0) Mean Corpuscular Hemoglobin Concent 32.9 G/DL (32.0-36.0) Red Cell Distribution Width 15.8 % (11.6-14.8) H Platelet Count 241 K/UL (150-450) Mean Platelet Volume 5.1 FL (6.5-10.1) L Neutrophils (%) (Auto) 72.8 % (45.0-75.0) Lymphocytes (%) (Auto) 20.8 % (20.0-45.0) Monocytes (%) (Auto) 3.7 % (1.0-10.0) Eosinophils (%) (Auto) 1.8 % (0.0-3.0) Basophils (%) (Auto) 0.9 % (0.0-2.0) Sodium Level 137 MMOL/L (136-145) Potassium Level 4.6 MMOL/L (3.5-5.1) Chloride Level 110 MMOL/L (98-107) H Carbon Dioxide Level 19 MMOL/L (21-32) L Anion Gap 8 mmol/L (5-15) Blood Urea Nitrogen 35 mg/dL (7-18) H Creatinine 1.1 MG/DL (0.55-1.30) Estimat Glomerular Filtration Rate mL/min (>60) Glucose Level 140 MG/DL (74-106) H Calcium Level 9.0 MG/DL (8.5-10.1) Phosphorus Level 2.8 MG/DL (2.5-4.9) Magnesium Level 2.0 MG/DL (1.8-2.4) Total Bilirubin 0.2 MG/DL (0.2-1.0) Aspartate Amino Transf (AST/SGOT) 34 U/L (15-37) Alanine Aminotransferase (ALT/SGPT) 53 U/L (12-78) Alkaline Phosphatase 305 U/L (46-116) H Total Protein 4.3 G/DL (6.4-8.2) L Albumin 1.4 G/DL (3.4-5.0) L Globulin 2.9 g/dL Albumin/Globulin Ratio 0.5 (1.0-2.7) L Arterial Blood pH 7.510 (7.350-7.450) Arterial Blood Partial Pressure CO2 20.0 mmHg (35.0-45.0) *L Arterial Blood Partial Pressure O2 134.7 mmHg (75.0-100.0) H Arterial Blood HCO3 15.6 mmol/L (22.0-26.0) *L Arterial Blood Oxygen Saturation 98.1 % (95-100) Arterial Blood Base Excess -5.9 (-2-2) L Silas Test Positive Yancy Lai MD May 11, 2019 12:54
--- NOTE | 2019-05-11 13:07 | NUR ---
*-* CASE MANAGEMENT NOTE *-* ALL PROGRESS NOTES HAVE BEEN FAXED TO: [facility] P: [phone] F: [phone]
--- NOTE | 2019-05-11 14:35 | NUR ---
NURSE NOTES: Turned and repositioned pt. Temp 99.4 orally. Continued cooling measures.
--- NOTE | 2019-05-11 14:35 | General Progress Note ---
Assessment/Plan Problem List: (1) Acute respiratory failure ICD Codes: J96.00 - Acute respiratory failure, unspecified whether with hypoxia or hypercapnia SNOMED: 93914470 (2) Septic shock ICD Codes: A41.9 - Sepsis, unspecified organism; R65.21 - Severe sepsis with septic shock SNOMED: 03355151, 7153596 (3) Diabetes mellitus ICD Codes: E11.9 - Type 2 diabetes mellitus without complications SNOMED: 79246973 (4) Hypertension ICD Codes: I10 - Essential (primary) hypertension SNOMED: 45628882 (5) COPD (chronic obstructive pulmonary disease) ICD Codes: J44.9 - Chronic obstructive pulmonary disease, unspecified SNOMED: 11771030 (6) Anemia ICD Codes: D64.9 - Anemia, unspecified SNOMED: 036416714 (7) Schizophrenia ICD Codes: F20.9 - Schizophrenia, unspecified SNOMED: 85583659 Status: unchanged Assessment/Plan: vent abx bp bs control cbc bmp am Subjective Constitutional: Reports: weakness Allergies: Coded Allergies: No Known Allergies (Unverified , 05/01/19) All Systems: reviewed and negative except above Subjective intubated sedated in icu Objective Last 24 Hour Vital Signs Date Time Temp Pulse Resp B/P (MAP) Pulse Ox O2 Delivery O2 Flow Rate FiO2 05/11/19 13:26 69 14 30 05/11/19 13:00 98.8 68 13 122/55 (77) 99 05/11/19 12:00 65 12 121/40 (67) 99 05/11/19 12:00 Mechanical Ventilator 05/11/19 11:00 68 24 126/43 (70) 99 05/11/19 10:39 30 05/11/19 10:30 64 21 30 05/11/19 10:16 63 27 100 Mechanical Ventilator 30 05/11/19 10:00 70 27 123/55 (77) 99 05/11/19 09:00 66 16 120/46 (70) 99 05/11/19 08:46 30 05/11/19 08:38 73 29 30 05/11/19 08:38 100 05/11/19 08:36 30 05/11/19 08:00 99.1 65 17 109/45 (66) 100 05/11/19 08:00 Mechanical Ventilator 05/11/19 08:00 30 05/11/19 07:28 65 16 30 05/11/19 07:00 63 16 106/41 (62) 100 05/11/19 06:00 68 18 106/47 (66) 100 05/11/19 05:15 64 16 30 05/11/19 05:00 62 16 109/40 (63) 100 05/11/19 04:00 65 05/11/19 04:00 98.4 66 17 114/45 (68) 100 05/11/19 04:00 30 05/11/19 04:00 Mechanical Ventilator 05/11/19 03:09 59 16 30 05/11/19 03:00 61 16 118/41 (66) 100 05/11/19 02:00 60 16 106/39 (61) 99 05/11/19 01:25 62 17 30 05/11/19 01:00 63 16 110/49 (69) 99 05/11/19 00:00 65 05/11/19 00:00 98.5 64 16 105/39 (61) 100 05/11/19 00:00 Mechanical Ventilator 05/11/19 00:00 64 16 105/39 (61) 100 05/10/19 23:18 65 16 30 05/10/19 23:00 63 16 107/39 (61) 99 05/10/19 22:00 65 16 105/40 (61) 99 05/10/19 21:00 70 15 116/34 (61) 99 05/10/19 21:00 66 15 30 05/10/19 20:00 30 05/10/19 20:00 Mechanical Ventilator 05/10/19 20:00 68 05/10/19 20:00 98.5 76 18 115/39 (64) 98 05/10/19 19:10 69 15 30 05/10/19 19:00 69 16 112/41 (64) 99 05/10/19 18:00 75 16 115/43 (67) 100 05/10/19 17:00 66 16 103/41 (61) 99 05/10/19 16:00 Mechanical Ventilator 05/10/19 16:00 98.8 70 16 99/48 (65) 100 05/10/19 16:00 30 05/10/19 16:00 68 05/10/19 15:43 71 16 30 05/10/19 15:00 66 16 113/40 (64) 100 05/10/19 14:39 71 16 30 Intake and Output 05/10/19 05/11/19 19:00 07:00 Intake Total 1195.000 ml 705 ml Output Total 710 ml 635 ml Balance 485.000 ml 70 ml Free Water 260 ml 50 ml IV Total 335.000 ml 55 ml Tube Feeding 600 ml 600 ml Output Urine Total 710 ml 635 ml # Bowel Movements 5 156 Laboratory Tests 05/11/19 04:45: White Blood Count 7.3, Red Blood Count 3.04L, Hemoglobin 8.9L, Hematocrit 27.2L , Mean Corpuscular Volume 90, Mean Corpuscular Hemoglobin 29.4, Mean Corpuscular Hemoglobin Concent 32.9, Red Cell Distribution Width 15.8H, Platelet Count 241, Mean Platelet Volume 5.1L, Neutrophils (%) (Auto) 72.8, Lymphocytes (%) (Auto) 20.8, Monocytes (%) (Auto) 3.7, Eosinophils (%) (Auto) 1.8, Basophils (%) (Auto) 0.9, Sodium Level 137, Potassium Level 4.6, Chloride Level 110H, Carbon Dioxide Level 19L, Anion Gap 8, Blood Urea Nitrogen 35H, Creatinine 1.1, Estimat Glomerular Filtration Rate , Glucose Level 140H, Calcium Level 9.0, Phosphorus Level 2.8, Magnesium Level 2.0, Total Bilirubin 0.2, Aspartate Amino Transf (AST/SGOT) 34, Alanine Aminotransferase (ALT/SGPT) 53, Alkaline Phosphatase 305H, Total Protein 4.3L, Albumin 1.4L, Globulin 2.9, Albumin/Globulin Ratio 0.5L 05/11/19 09:07: Arterial Blood pH 7.510H, Arterial Blood Partial Pressure CO2 20.0*L, Arterial Blood Partial Pressure O2 134.7H, Arterial Blood HCO3 15.6*L, Arterial Blood Oxygen Saturation 98.1, Arterial Blood Base Excess -5.9L, Silas Test Positive Height (Feet): 5 Height (Inches): 7.00 Weight (Pounds): 118 General Appearance: lethargic EENT: normal ENT inspection Neck: normal alignment Cardiovascular: normal peripheral pulses, normal rate, regular rhythm Respiratory/Chest: chest wall non-tender, lungs clear, normal breath sounds Abdomen: normal bowel sounds, non tender, soft Extremities: normal inspection Edema: no edema noted Arm (L), no edema noted Arm (R), no edema noted Leg (L), no edema noted Leg (R), no edema noted Pedal (L), no edema noted Pedal (R), no edema noted Generalized Neurologic: motor weakness Skin: normal pigmentation, warm/dry Cosme Chong DO May 11, 2019 14:35
--- NOTE | 2019-05-11 15:10 | Infectious Diseases Prog Note ---
Assessment/Plan Assessment/Plan Assessment/Recommendation: Tmax 104.2, SP New leukocytosis after steroid given, SP Lactate 3.4>1.6>2.4>3.3>3.8>1.0 UTI? 05/01 UA 10-15 WBC 05/01 UCx: MDR Klebsiella(R-imipenem, gent, cipro, nitrofurantoin, zosyn, bactrim. I-amikacin) PNA? 05/01 sputum cx: MRSA, Providencia(S-amikacin, cefepime, ceftazidime, cipro, erta, zosyn), normal resp magdalena 05/01 CXR: Right mainstem intubation. Suggest pulling the tube back about 3 cm. Atelectasis of the left lower lobe. Superimposed pneumonia or pleural effusion is not excluded. CHF suspected. 05/01 CXR: Endotracheal tube is 2 cm above the guille in good position. A left subclavian line is also present in good position of the tip projected over the SVC. Pulmonary edema again demonstrated. There is hazy opacity at the left lung base which is probably a pleural effusion. 05/02 CXR: Over one day, interval improvement of previously demonstrated left- sided pleural fluid and interstitial and airspace edema. Parenchymal disease is unchanged on the right. 05/03 CXR: Stable satisfactory positions of endotracheal tube, left arm PICC. Hazy opacities in the right mid and lower lung are probably unchanged. There is a small amount of hazy opacity at the left lung base persisting as well. The heart is normal in size. Allowing for technical differences, findings are overall unchanged r/o bacteremia 05/01 BCx: ngtd MRSA negative VRE negative CRE negative HTN COPD Schizophrenia DM G tube Parkinson CKD Protein calorie malnutrition Dementia Psychosis Gastritis Functional paraplegia Plan: Meropenem #7/ Linezolid #7/7 11/ DC Cefepime #1 05/04 SP Colistin #1 05/04 DC Ertapenem, Amikacin, Vancomycin #3 05/01 SP Zosyn #1 steroid per pulm f/u bcx f/u ucx f/u sputum cx aspiration precaution ETT management skin care oral care C diff if diarrhea persists Thank you for this consult. [facility] will continue to follow the patient with you. Subjective Allergies: Coded Allergies: No Known Allergies (Unverified , 05/01/19) Subjective Afebrile. no pressors. failed weaning again thin secretions less than <100cc stool Objective Vital Signs Last 24 Hour Vital Signs Date Time Temp Pulse Resp B/P (MAP) Pulse Ox O2 Delivery O2 Flow Rate FiO2 05/11/19 15:00 66 22 137/66 (89) 99 05/11/19 14:00 70 14 122/39 (66) 99 05/11/19 13:26 69 14 30 05/11/19 13:00 98.8 68 13 122/55 (77) 99 05/11/19 12:00 65 12 121/40 (67) 99 05/11/19 12:00 Mechanical Ventilator 05/11/19 11:00 68 24 126/43 (70) 99 05/11/19 10:39 30 05/11/19 10:30 64 21 30 05/11/19 10:16 63 27 100 Mechanical Ventilator 30 05/11/19 10:00 70 27 123/55 (77) 99 05/11/19 09:00 66 16 120/46 (70) 99 05/11/19 08:46 30 05/11/19 08:38 73 29 30 05/11/19 08:38 100 05/11/19 08:36 30 05/11/19 08:00 99.1 65 17 109/45 (66) 100 05/11/19 08:00 Mechanical Ventilator 05/11/19 08:00 30 05/11/19 07:28 65 16 30 05/11/19 07:00 63 16 106/41 (62) 100 05/11/19 06:00 68 18 106/47 (66) 100 05/11/19 05:15 64 16 30 05/11/19 05:00 62 16 109/40 (63) 100 05/11/19 04:00 65 05/11/19 04:00 98.4 66 17 114/45 (68) 100 05/11/19 04:00 30 05/11/19 04:00 Mechanical Ventilator 05/11/19 03:09 59 16 30 05/11/19 03:00 61 16 118/41 (66) 100 05/11/19 02:00 60 16 106/39 (61) 99 05/11/19 01:25 62 17 30 05/11/19 01:00 63 16 110/49 (69) 99 05/11/19 00:00 65 05/11/19 00:00 98.5 64 16 105/39 (61) 100 05/11/19 00:00 Mechanical Ventilator 05/11/19 00:00 64 16 105/39 (61) 100 05/10/19 23:18 65 16 30 05/10/19 23:00 63 16 107/39 (61) 99 05/10/19 22:00 65 16 105/40 (61) 99 05/10/19 21:00 70 15 116/34 (61) 99 05/10/19 21:00 66 15 30 05/10/19 20:00 30 05/10/19 20:00 Mechanical Ventilator 05/10/19 20:00 68 05/10/19 20:00 98.5 76 18 115/39 (64) 98 05/10/19 19:10 69 15 30 05/10/19 19:00 69 16 112/41 (64) 99 05/10/19 18:00 75 16 115/43 (67) 100 05/10/19 17:00 66 16 103/41 (61) 99 05/10/19 16:00 Mechanical Ventilator 05/10/19 16:00 98.8 70 16 99/48 (65) 100 05/10/19 16:00 30 05/10/19 16:00 68 05/10/19 15:43 71 16 30 Height (Feet): 5 Height (Inches): 7.00 Weight (Pounds): 118 Objective VS: Tmax 104.2 Gen: NAD. twitching HEENT: ETT CV: RRR Resp: RRR. coarse. no wheezes Abd: soft. nondistended. normoactive Bs+ Neuro: not awake Laboratory Tests Test 05/11/19 04:45 05/11/19 09:07 White Blood Count 7.3 K/UL (4.8-10.8) Red Blood Count 3.04 M/UL (4.20-5.40) L Hemoglobin 8.9 G/DL (12.0-16.0) L Hematocrit 27.2 % (37.0-47.0) L Mean Corpuscular Volume 90 FL (80-99) Mean Corpuscular Hemoglobin 29.4 PG (27.0-31.0) Mean Corpuscular Hemoglobin Concent 32.9 G/DL (32.0-36.0) Red Cell Distribution Width 15.8 % (11.6-14.8) H Platelet Count 241 K/UL (150-450) Mean Platelet Volume 5.1 FL (6.5-10.1) L Neutrophils (%) (Auto) 72.8 % (45.0-75.0) Lymphocytes (%) (Auto) 20.8 % (20.0-45.0) Monocytes (%) (Auto) 3.7 % (1.0-10.0) Eosinophils (%) (Auto) 1.8 % (0.0-3.0) Basophils (%) (Auto) 0.9 % (0.0-2.0) Sodium Level 137 MMOL/L (136-145) Potassium Level 4.6 MMOL/L (3.5-5.1) Chloride Level 110 MMOL/L (98-107) H Carbon Dioxide Level 19 MMOL/L (21-32) L Anion Gap 8 mmol/L (5-15) Blood Urea Nitrogen 35 mg/dL (7-18) H Creatinine 1.1 MG/DL (0.55-1.30) Estimat Glomerular Filtration Rate mL/min (>60) Glucose Level 140 MG/DL (74-106) H Calcium Level 9.0 MG/DL (8.5-10.1) Phosphorus Level 2.8 MG/DL (2.5-4.9) Magnesium Level 2.0 MG/DL (1.8-2.4) Total Bilirubin 0.2 MG/DL (0.2-1.0) Aspartate Amino Transf (AST/SGOT) 34 U/L (15-37) Alanine Aminotransferase (ALT/SGPT) 53 U/L (12-78) Alkaline Phosphatase 305 U/L (46-116) H Total Protein 4.3 G/DL (6.4-8.2) L Albumin 1.4 G/DL (3.4-5.0) L Globulin 2.9 g/dL Albumin/Globulin Ratio 0.5 (1.0-2.7) L Arterial Blood pH 7.510 (7.350-7.450) Arterial Blood Partial Pressure CO2 20.0 mmHg (35.0-45.0) *L Arterial Blood Partial Pressure O2 134.7 mmHg (75.0-100.0) H Arterial Blood HCO3 15.6 mmol/L (22.0-26.0) *L Arterial Blood Oxygen Saturation 98.1 % (95-100) Arterial Blood Base Excess -5.9 (-2-2) L Silas Test Positive Current Medications Medications (Trade) Dose Ordered Sig/Vane Route PRN Reason Start Time Stop Time Status Last Admin Dose Admin Acetaminophen (Tylenol) 650 mg Q4H PRN NG fever 05/04/19 09:30 05/31/19 12:44 05/04/19 10:00 Calcitonin [place] (Miacalcin) 1 sprays DAILY NASAL 05/04/19 09:00 06/03/19 08:59 05/11/19 09:10 Chlorhexidine Gluconate (Shanice-Hex 2%) 1 applic DAILY@2000 TOPIC 05/01/19 20:00 05/31/19 19:59 05/10/19 21:30 Dextrose (Dextrose 50%) 25 ml Q30M PRN IV Hypoglycemia 05/02/19 06:30 06/01/19 06:29 Dextrose (Dextrose 50%) 50 ml Q30M PRN IV Hypoglycemia 05/02/19 06:30 06/01/19 06:29 Heparin Sodium (Porcine) (Heparin 5000 units/ml) 5,000 units EVERY 12 HOURS SUBQ 05/01/19 21:00 05/31/19 20:59 05/11/19 09:12 Insulin Aspart (NovoLOG) EVERY 6 HOURS SUBQ 05/02/19 07:30 06/01/19 07:29 05/11/19 13:04 Linezolid (Zyvox) 600 mg EVERY 12 HOURS ORAL 05/04/19 21:00 05/11/19 23:59 05/11/19 09:14 Meropenem 1 gm/ Sodium Chloride 55 ml @ 110 mls/hr Q8HR IVPB 05/05/19 22:00 05/11/19 23:59 05/11/19 15:00 Midodrine (Pro-Amatine) 5 mg THREE TIMES A DAY NG 05/06/19 13:00 06/04/19 12:59 05/11/19 13:04 Norepinephrine Bitartrate 4 mg/ Dextrose 254 ml @ 0 mls/hr Q24H IV 05/01/19 12:45 05/31/19 12:44 05/04/19 18:15 Ondansetron HCl (Zofran) 4 mg Q6H PRN IVP Nausea & Vomiting 05/01/19 12:45 05/31/19 12:44 Pantoprazole (Protonix) 40 mg Q12HR IV 05/01/19 21:00 06/01/19 08:59 05/11/19 09:10 Potassium Chloride (K-Dur) 20 meq TWICE A DAY NG 05/04/19 09:18 06/03/19 09:17 05/11/19 09:10 Risperidone (RisperDAL) 0.25 mg QHS PRN GT Agitation 05/02/19 07:30 06/01/19 07:29 Jennifer Palm MD May 11, 2019 15:09
--- NOTE | 2019-05-11 16:40 | NUR ---
NURSE NOTES: Cleaned pt for small amount of leaked rectal tube. Turned and repositioned pt. No acute distress noted. Will continue to monitor.
--- NOTE | 2019-05-11 16:57 | Hematology/Onc Progress Note ---
Assessment/Plan Assessment/Plan # Thrombocytopenia - potential causes multifactorial, evaluate liver and viral etiologies to begin, also could be related to underlying medications patient has received. In this case with septic shock --> Hep panel and HIV ordered --> US abd to evaluate for cirrhosis and hsm ordered --> Peripheral smear ordered to evaluate for blasts /schistocytes --> abx and other meds have been reviewed --> ok for ppx if plt >50k w/ either heparin or lovenox --> Transfuse if Plt < 20k and fever, or if Plt < 10k without fever --> plt trend 164-->102-->104-->241 # Anemia of chronic disease due to underlying chronic medical issues, multifactorial, in this case sepsis --> Anemia workup has been reviewed, no bleeding --> No evidence of hemolysis is noted, peripheral smear has been reviewed. --> Hgb goal >7. Transfuse prn. --> Epogen or iron at this time is not particularly indicated --> Medications have been reviewed --> low threshold for gi evaluation in case has occult + --> bone marrow biopsy is not indicated given the other more likely causes --> hgb trend 11.5-->7.8-->8.9 # Hypercalcemia --> started on ivf by renal --> Ca trend as needed --> pamidronate given calcitonin # Septic shock --> erta/aamikacin/vanc per id # Acute kidney injury --> per renal # Acute respiratory failure s/p vent --> per pulm # Dysphagia s/p peg # Schizophrenia # Dvt ppx heparins sq The timing of this note does not necessarily reflect the time of the patient was seen. Greatly appreciate consultation. Subjective Allergies: Coded Allergies: No Known Allergies (Unverified , 05/01/19) Subjective 05/03: remains on vent, counts reviewed with rn, on abx, no bleeding 05/11: icu, awake, nonverbal, failed to wean from vent Objective Objective Current Medications Medications (Trade) Dose Ordered Sig/Vane Route PRN Reason Start Time Stop Time Status Last Admin Dose Admin Acetaminophen (Tylenol) 650 mg Q4H PRN NG fever 05/04/19 09:30 05/31/19 12:44 05/04/19 10:00 Calcitonin [place] (Miacalcin) 1 sprays DAILY NASAL 05/04/19 09:00 06/03/19 08:59 05/11/19 09:10 Chlorhexidine Gluconate (Shanice-Hex 2%) 1 applic DAILY@2000 TOPIC 05/01/19 20:00 05/31/19 19:59 05/10/19 21:30 Dextrose (Dextrose 50%) 25 ml Q30M PRN IV Hypoglycemia 05/02/19 06:30 06/01/19 06:29 Dextrose (Dextrose 50%) 50 ml Q30M PRN IV Hypoglycemia 05/02/19 06:30 06/01/19 06:29 Heparin Sodium (Porcine) (Heparin 5000 units/ml) 5,000 units EVERY 12 HOURS SUBQ 05/01/19 21:00 05/31/19 20:59 05/11/19 09:12 Insulin Aspart (NovoLOG) EVERY 6 HOURS SUBQ 05/02/19 07:30 06/01/19 07:29 05/11/19 13:04 Linezolid (Zyvox) 600 mg EVERY 12 HOURS ORAL 05/04/19 21:00 05/11/19 23:59 05/11/19 09:14 Meropenem 1 gm/ Sodium Chloride 55 ml @ 110 mls/hr Q8HR IVPB 05/05/19 22:00 05/11/19 23:59 05/11/19 15:00 Midodrine (Pro-Amatine) 5 mg THREE TIMES A DAY NG 05/06/19 13:00 06/04/19 12:59 05/11/19 13:04 Norepinephrine Bitartrate 4 mg/ Dextrose 254 ml @ 0 mls/hr Q24H IV 05/01/19 12:45 05/31/19 12:44 05/04/19 18:15 Ondansetron HCl (Zofran) 4 mg Q6H PRN IVP Nausea & Vomiting 05/01/19 12:45 05/31/19 12:44 Pantoprazole (Protonix) 40 mg Q12HR IV 05/01/19 21:00 06/01/19 08:59 05/11/19 09:10 Potassium Chloride (K-Dur) 20 meq TWICE A DAY NG 05/04/19 09:18 06/03/19 09:17 05/11/19 09:10 Risperidone (RisperDAL) 0.25 mg QHS PRN GT Agitation 05/02/19 07:30 06/01/19 07:29 Last 24 Hour Vital Signs Date Time Temp Pulse Resp B/P (MAP) Pulse Ox O2 Delivery O2 Flow Rate FiO2 05/11/19 16:00 Mechanical Ventilator 05/11/19 16:00 30 05/11/19 16:00 63 25 126/97 (107) 100 05/11/19 15:34 61 05/11/19 15:00 66 22 137/66 (89) 99 05/11/19 15:00 64 24 30 05/11/19 14:00 70 14 122/39 (66) 99 05/11/19 13:26 69 14 30 05/11/19 13:00 98.8 68 13 122/55 (77) 99 05/11/19 12:00 65 12 121/40 (67) 99 05/11/19 12:00 Mechanical Ventilator 05/11/19 11:54 66 05/11/19 11:00 68 24 126/43 (70) 99 05/11/19 10:39 30 05/11/19 10:30 64 21 30 05/11/19 10:16 63 27 100 Mechanical Ventilator 30 05/11/19 10:00 70 27 123/55 (77) 99 05/11/19 09:00 66 16 120/46 (70) 99 05/11/19 08:46 30 05/11/19 08:38 73 29 30 05/11/19 08:38 100 05/11/19 08:36 30 05/11/19 08:00 99.1 65 17 109/45 (66) 100 05/11/19 08:00 Mechanical Ventilator 05/11/19 08:00 30 05/11/19 07:58 65 05/11/19 07:28 65 16 30 05/11/19 07:00 63 16 106/41 (62) 100 05/11/19 06:00 68 18 106/47 (66) 100 05/11/19 05:15 64 16 30 05/11/19 05:00 62 16 109/40 (63) 100 05/11/19 04:00 65 05/11/19 04:00 98.4 66 17 114/45 (68) 100 05/11/19 04:00 30 05/11/19 04:00 Mechanical Ventilator 05/11/19 03:09 59 16 30 05/11/19 03:00 61 16 118/41 (66) 100 05/11/19 02:00 60 16 106/39 (61) 99 05/11/19 01:25 62 17 30 05/11/19 01:00 63 16 110/49 (69) 99 05/11/19 00:00 65 05/11/19 00:00 98.5 64 16 105/39 (61) 100 05/11/19 00:00 Mechanical Ventilator 05/11/19 00:00 64 16 105/39 (61) 100 05/10/19 23:18 65 16 30 05/10/19 23:00 63 16 107/39 (61) 99 05/10/19 22:00 65 16 105/40 (61) 99 05/10/19 21:00 70 15 116/34 (61) 99 05/10/19 21:00 66 15 30 05/10/19 20:00 30 05/10/19 20:00 Mechanical Ventilator 05/10/19 20:00 68 05/10/19 20:00 98.5 76 18 115/39 (64) 98 05/10/19 19:10 69 15 30 05/10/19 19:00 69 16 112/41 (64) 99 05/10/19 18:00 75 16 115/43 (67) 100 05/10/19 17:00 66 16 103/41 (61) 99 05/10/19 16:00 Mechanical Ventilator 05/10/19 16:00 98.8 70 16 99/48 (65) 100 05/10/19 16:00 30 05/10/19 16:00 68 05/10/19 15:43 71 16 30 05/10/19 15:00 66 16 113/40 (64) 100 05/10/19 14:39 71 16 30 05/10/19 14:00 67 16 104/49 (67) 100 05/10/19 13:02 69 16 30 05/10/19 13:00 70 16 101/35 (57) 100 05/10/19 12:00 30 05/10/19 12:00 67 05/10/19 12:00 98.9 66 16 103/43 (63) 99 05/10/19 12:00 Mechanical Ventilator 05/10/19 11:00 71 16 108/42 (64) 99 05/10/19 11:00 68 16 30 05/10/19 10:00 71 16 110/38 (62) 99 05/10/19 09:00 71 16 110/38 (62) 99 05/10/19 08:48 99 05/10/19 08:48 72 18 30 05/10/19 08:00 Mechanical Ventilator 05/10/19 08:00 73 05/10/19 08:00 98.6 70 16 109/37 (61) 99 05/10/19 08:00 30 05/10/19 07:15 70 17 30 05/10/19 07:00 68 16 105/42 (63) 99 05/10/19 06:00 69 16 132/110 (117) 99 05/10/19 05:00 68 16 110/40 (63) 99 05/10/19 04:47 66 16 30 05/10/19 04:00 30 05/10/19 04:00 Mechanical Ventilator 05/10/19 04:00 98.3 69 16 115/38 (63) 99 05/10/19 03:28 71 05/10/19 03:00 69 17 119/47 (71) 99 05/10/19 02:55 70 18 30 05/10/19 02:00 68 16 104/42 (62) 99 05/10/19 01:00 73 16 100/39 (59) 99 05/10/19 01:00 73 16 30 05/10/19 00:08 74 05/10/19 00:00 Mechanical Ventilator 05/10/19 00:00 30 05/10/19 00:00 99.1 71 16 102/40 (60) 99 05/09/19 23:12 69 16 30 05/09/19 23:00 73 16 109/39 (62) 99 05/09/19 22:00 74 16 102/40 (60) 99 05/09/19 21:22 72 16 30 05/09/19 21:00 76 16 109/39 (62) 99 05/09/19 20:04 82 05/09/19 20:00 Mechanical Ventilator 05/09/19 20:00 30 05/09/19 20:00 99.3 81 16 101/42 (61) 98 05/09/19 19:15 84 16 30 05/09/19 19:00 78 16 103/41 (61) 98 05/09/19 18:00 84 17 117/45 (69) 98 05/09/19 17:00 82 17 116/51 (72) 99 05/09/19 16:58 83 19 30 Intake and Output 05/10/19 05/11/19 19:00 07:00 Intake Total 1195.000 ml 705 ml Output Total 710 ml 635 ml Balance 485.000 ml 70 ml Free Water 260 ml 50 ml IV Total 335.000 ml 55 ml Tube Feeding 600 ml 600 ml Output Urine Total 710 ml 635 ml # Bowel Movements 5 156 Labs Test 05/09/19 03:15 05/09/19 08:54 05/10/19 04:20 05/10/19 08:51 White Blood Count 8.3 K/UL (4.8-10.8) 7.6 K/UL (4.8-10.8) Red Blood Count 3.34 M/UL (4.20-5.40) 3.04 M/UL (4.20-5.40) Hemoglobin 9.7 G/DL (12.0-16.0) 8.9 G/DL (12.0-16.0) Hematocrit 29.8 % (37.0-47.0) 27.2 % (37.0-47.0) Mean Corpuscular Volume 89 FL (80-99) 89 FL (80-99) Mean Corpuscular Hemoglobin 29.1 PG (27.0-31.0) 29.4 PG (27.0-31.0) Mean Corpuscular Hemoglobin Concent 32.6 G/DL (32.0-36.0) 32.8 G/DL (32.0-36.0) Red Cell Distribution Width 15.4 % (11.6-14.8) 16.0 % (11.6-14.8) Platelet Count 217 K/UL (150-450) 224 K/UL (150-450) Mean Platelet Volume 5.7 FL (6.5-10.1) 5.6 FL (6.5-10.1) Neutrophils (%) (Auto) 79.2 % (45.0-75.0) 71.7 % (45.0-75.0) Lymphocytes (%) (Auto) 13.7 % (20.0-45.0) 21.5 % (20.0-45.0) Monocytes (%) (Auto) 3.9 % (1.0-10.0) 3.5 % (1.0-10.0) Eosinophils (%) (Auto) 2.6 % (0.0-3.0) 2.5 % (0.0-3.0) Basophils (%) (Auto) 0.6 % (0.0-2.0) 0.8 % (0.0-2.0) Sodium Level 139 MMOL/L (136-145) 136 MMOL/L (136-145) Potassium Level 4.7 MMOL/L (3.5-5.1) 4.7 MMOL/L (3.5-5.1) Chloride Level 112 MMOL/L (98-107) 109 MMOL/L (98-107) Carbon Dioxide Level 19 MMOL/L (21-32) 19 MMOL/L (21-32) Anion Gap 8 mmol/L (5-15) 8 mmol/L (5-15) Blood Urea Nitrogen 29 mg/dL (7-18) 34 mg/dL (7-18) Creatinine 1.2 MG/DL (0.55-1.30) 1.2 MG/DL (0.55-1.30) Estimat Glomerular Filtration Rate mL/min (>60) mL/min (>60) Glucose Level 121 MG/DL (74-106) 140 MG/DL (74-106) Uric Acid 4.7 MG/DL (2.6-7.2) Calcium Level 9.1 MG/DL (8.5-10.1) 9.1 MG/DL (8.5-10.1) Phosphorus Level 2.5 MG/DL (2.5-4.9) 2.2 MG/DL (2.5-4.9) Magnesium Level 1.7 MG/DL (1.8-2.4) 2.2 MG/DL (1.8-2.4) Total Bilirubin 0.3 MG/DL (0.2-1.0) 0.3 MG/DL (0.2-1.0) Aspartate Amino Transf (AST/SGOT) 46 U/L (15-37) 41 U/L (15-37) Alanine Aminotransferase (ALT/SGPT) 65 U/L (12-78) 57 U/L (12-78) Alkaline Phosphatase 329 U/L (46-116) 305 U/L (46-116) Total Protein 4.3 G/DL (6.4-8.2) 4.1 G/DL (6.4-8.2) Albumin 1.4 G/DL (3.4-5.0) 1.4 G/DL (3.4-5.0) Globulin 2.9 g/dL 2.7 g/dL Albumin/Globulin Ratio 0.5 (1.0-2.7) 0.5 (1.0-2.7) Arterial Blood pH 7.423 (7.350-7.450) 7.380 (7.350-7.450) Arterial Blood Partial Pressure CO2 28.2 mmHg (35.0-45.0) 28.4 mmHg (35.0-45.0) Arterial Blood Partial Pressure O2 104.1 mmHg (75.0-100.0) 130.8 mmHg (75.0-100.0) Arterial Blood HCO3 18.0 mmol/L (22.0-26.0) 16.4 mmol/L (22.0-26.0) Arterial Blood Oxygen Saturation 97.4 % (95-100) 98.3 % (95-100) Arterial Blood Base Excess -5.4 (-2-2) -7.6 (-2-2) Silas Test Positive Positive Test 05/11/19 04:45 05/11/19 09:07 White Blood Count 7.3 K/UL (4.8-10.8) Red Blood Count 3.04 M/UL (4.20-5.40) Hemoglobin 8.9 G/DL (12.0-16.0) Hematocrit 27.2 % (37.0-47.0) Mean Corpuscular Volume 90 FL (80-99) Mean Corpuscular Hemoglobin 29.4 PG (27.0-31.0) Mean Corpuscular Hemoglobin Concent 32.9 G/DL (32.0-36.0) Red Cell Distribution Width 15.8 % (11.6-14.8) Platelet Count 241 K/UL (150-450) Mean Platelet Volume 5.1 FL (6.5-10.1) Neutrophils (%) (Auto) 72.8 % (45.0-75.0) Lymphocytes (%) (Auto) 20.8 % (20.0-45.0) Monocytes (%) (Auto) 3.7 % (1.0-10.0) Eosinophils (%) (Auto) 1.8 % (0.0-3.0) Basophils (%) (Auto) 0.9 % (0.0-2.0) Sodium Level 137 MMOL/L (136-145) Potassium Level 4.6 MMOL/L (3.5-5.1) Chloride Level 110 MMOL/L (98-107) Carbon Dioxide Level 19 MMOL/L (21-32) Anion Gap 8 mmol/L (5-15) Blood Urea Nitrogen 35 mg/dL (7-18) Creatinine 1.1 MG/DL (0.55-1.30) Estimat Glomerular Filtration Rate mL/min (>60) Glucose Level 140 MG/DL (74-106) Calcium Level 9.0 MG/DL (8.5-10.1) Phosphorus Level 2.8 MG/DL (2.5-4.9) Magnesium Level 2.0 MG/DL (1.8-2.4) Total Bilirubin 0.2 MG/DL (0.2-1.0) Aspartate Amino Transf (AST/SGOT) 34 U/L (15-37) Alanine Aminotransferase (ALT/SGPT) 53 U/L (12-78) Alkaline Phosphatase 305 U/L (46-116) Total Protein 4.3 G/DL (6.4-8.2) Albumin 1.4 G/DL (3.4-5.0) Globulin 2.9 g/dL Albumin/Globulin Ratio 0.5 (1.0-2.7) Arterial Blood pH 7.510 (7.350-7.450) Arterial Blood Partial Pressure CO2 20.0 mmHg (35.0-45.0) Arterial Blood Partial Pressure O2 134.7 mmHg (75.0-100.0) Arterial Blood HCO3 15.6 mmol/L (22.0-26.0) Arterial Blood Oxygen Saturation 98.1 % (95-100) Arterial Blood Base Excess -5.9 (-2-2) Silas Test Positive Height (Feet): 5 Height (Inches): 7.00 Weight (Pounds): 118 Objective Gen: Nad Pulm: is vent++ CV: ++ tachy Abd: soft, nt, ++ g tube Ext: 1+ edema noted Bruce Coombs MD May 11, 2019 16:57
--- NOTE | 2019-05-11 19:10 | NUR ---
HAND-OFF: Report given to MONA Doyle.
--- NOTE | 2019-05-11 19:37 | NUR ---
NURSE NOTES: received fr alayna king rn orally intubated -vent o2 sat 98 0/0 no acute resp distress noted open eyes to touch does not follows command reposition and suction
--- NOTE | 2019-05-11 20:15 | Cardiology Progress Note ---
Assessment/Plan Assessment/Plan 1. Acute febrile illness, sepsis. 2. Hypotension. 3. Possible pneumonia/ respiratory failure acute 4. Urinary tract infection? 5. Hypernatremia. 6. Renal insufficiency and failure. 7. Dementia. 8. G-tube placement. 9. anemia 10. thrombocytopenia 11. lactic acidosis 12. hyperglycemia more awake iv abx vent support plt normal abn trop noted demand related cxr personally reviewed looks ok d/w rn pulm toilette echo lv fxn normal wean to extubate when feasible Objective Last 24 Hour Vital Signs Date Time Temp Pulse Resp B/P (MAP) Pulse Ox O2 Delivery O2 Flow Rate FiO2 05/11/19 19:00 68 14 139/58 (85) 100 05/11/19 18:00 63 14 118/42 (67) 99 05/11/19 17:21 66 15 30 05/11/19 17:00 99.4 64 25 126/97 (107) 100 05/11/19 16:00 Mechanical Ventilator 05/11/19 16:00 30 05/11/19 16:00 63 25 126/97 (107) 100 05/11/19 15:34 61 05/11/19 15:00 66 22 137/66 (89) 99 05/11/19 15:00 64 24 30 05/11/19 14:00 70 14 122/39 (66) 99 05/11/19 13:26 69 14 30 05/11/19 13:00 98.8 68 13 122/55 (77) 99 05/11/19 12:00 65 12 121/40 (67) 99 05/11/19 12:00 Mechanical Ventilator 05/11/19 11:54 66 05/11/19 11:00 68 24 126/43 (70) 99 05/11/19 10:39 30 05/11/19 10:30 64 21 30 05/11/19 10:16 63 27 100 Mechanical Ventilator 30 05/11/19 10:00 70 27 123/55 (77) 99 05/11/19 09:00 66 16 120/46 (70) 99 05/11/19 08:46 30 05/11/19 08:38 73 29 30 05/11/19 08:38 100 05/11/19 08:36 30 05/11/19 08:00 99.1 65 17 109/45 (66) 100 05/11/19 08:00 Mechanical Ventilator 05/11/19 08:00 30 05/11/19 07:58 65 05/11/19 07:28 65 16 30 05/11/19 07:00 63 16 106/41 (62) 100 05/11/19 06:00 68 18 106/47 (66) 100 05/11/19 05:15 64 16 30 05/11/19 05:00 62 16 109/40 (63) 100 05/11/19 04:00 65 05/11/19 04:00 98.4 66 17 114/45 (68) 100 05/11/19 04:00 30 05/11/19 04:00 Mechanical Ventilator 05/11/19 03:09 59 16 30 05/11/19 03:00 61 16 118/41 (66) 100 05/11/19 02:00 60 16 106/39 (61) 99 05/11/19 01:25 62 17 30 05/11/19 01:00 63 16 110/49 (69) 99 05/11/19 00:00 65 05/11/19 00:00 98.5 64 16 105/39 (61) 100 05/11/19 00:00 Mechanical Ventilator 05/11/19 00:00 64 16 105/39 (61) 100 05/10/19 23:18 65 16 30 05/10/19 23:00 63 16 107/39 (61) 99 05/10/19 22:00 65 16 105/40 (61) 99 05/10/19 21:00 70 15 116/34 (61) 99 05/10/19 21:00 66 15 30 Intake and Output 05/10/19 05/11/19 19:00 07:00 Intake Total 1195.000 ml 705 ml Output Total 710 ml 635 ml Balance 485.000 ml 70 ml Free Water 260 ml 50 ml IV Total 335.000 ml 55 ml Tube Feeding 600 ml 600 ml Output Urine Total 710 ml 635 ml # Bowel Movements 5 156 Laboratory Tests Test 05/11/19 04:45 05/11/19 09:07 White Blood Count 7.3 K/UL (4.8-10.8) Red Blood Count 3.04 M/UL (4.20-5.40) L Hemoglobin 8.9 G/DL (12.0-16.0) L Hematocrit 27.2 % (37.0-47.0) L Mean Corpuscular Volume 90 FL (80-99) Mean Corpuscular Hemoglobin 29.4 PG (27.0-31.0) Mean Corpuscular Hemoglobin Concent 32.9 G/DL (32.0-36.0) Red Cell Distribution Width 15.8 % (11.6-14.8) H Platelet Count 241 K/UL (150-450) Mean Platelet Volume 5.1 FL (6.5-10.1) L Neutrophils (%) (Auto) 72.8 % (45.0-75.0) Lymphocytes (%) (Auto) 20.8 % (20.0-45.0) Monocytes (%) (Auto) 3.7 % (1.0-10.0) Eosinophils (%) (Auto) 1.8 % (0.0-3.0) Basophils (%) (Auto) 0.9 % (0.0-2.0) Sodium Level 137 MMOL/L (136-145) Potassium Level 4.6 MMOL/L (3.5-5.1) Chloride Level 110 MMOL/L (98-107) H Carbon Dioxide Level 19 MMOL/L (21-32) L Anion Gap 8 mmol/L (5-15) Blood Urea Nitrogen 35 mg/dL (7-18) H Creatinine 1.1 MG/DL (0.55-1.30) Estimat Glomerular Filtration Rate mL/min (>60) Glucose Level 140 MG/DL (74-106) H Calcium Level 9.0 MG/DL (8.5-10.1) Phosphorus Level 2.8 MG/DL (2.5-4.9) Magnesium Level 2.0 MG/DL (1.8-2.4) Total Bilirubin 0.2 MG/DL (0.2-1.0) Aspartate Amino Transf (AST/SGOT) 34 U/L (15-37) Alanine Aminotransferase (ALT/SGPT) 53 U/L (12-78) Alkaline Phosphatase 305 U/L (46-116) H Total Protein 4.3 G/DL (6.4-8.2) L Albumin 1.4 G/DL (3.4-5.0) L Globulin 2.9 g/dL Albumin/Globulin Ratio 0.5 (1.0-2.7) L Arterial Blood pH 7.510 (7.350-7.450) Arterial Blood Partial Pressure CO2 20.0 mmHg (35.0-45.0) *L Arterial Blood Partial Pressure O2 134.7 mmHg (75.0-100.0) H Arterial Blood HCO3 15.6 mmol/L (22.0-26.0) *L Arterial Blood Oxygen Saturation 98.1 % (95-100) Arterial Blood Base Excess -5.9 (-2-2) L Silas Test Positive Objective Current Medications Medications (Trade) Dose Ordered Sig/Vane Route PRN Reason Start Time Stop Time Status Last Admin Dose Admin Acetaminophen (Tylenol) 650 mg Q4H PRN ORAL fever 05/01/19 12:45 05/31/19 12:44 Albuterol/ Ipratropium (Albuterol/ Ipratropium) 3 ml Q4H PRN HHN Shortness of Breath 05/01/19 12:45 05/06/19 12:44 Amikacin Protocol (Amikacin pharmacy to dose) 1 ea DAILY PRN MISC . 05/01/19 12:45 05/31/19 12:44 Amikacin Sulfate 500 mg/Sodium Chloride 112 ml @ 112 mls/hr Q24H IV 05/01/19 18:00 05/08/19 17:59 05/01/19 18:04 Chlorhexidine Gluconate (Shanice-Hex 2%) 1 applic DAILY@2000 TOPIC 05/01/19 20:00 05/31/19 19:59 05/01/19 19:48 Dextrose (Dextrose 50%) 25 ml Q30M PRN IV Hypoglycemia 05/02/19 06:30 06/01/19 06:29 Dextrose (Dextrose 50%) 50 ml Q30M PRN IV Hypoglycemia 05/02/19 06:30 06/01/19 06:29 Ertapenem 0.5 gm/ Sodium Chloride 55 ml @ 110 mls/hr Q24H IV 05/01/19 21:00 05/06/19 20:59 05/01/19 21:15 Heparin Sodium (Porcine) (Heparin 5000 units/ml) 5,000 units EVERY 12 HOURS SUBQ 05/01/19 21:00 05/31/19 20:59 05/01/19 21:17 Insulin Aspart (NovoLOG) EVERY 6 HOURS SUBQ 05/02/19 07:30 06/01/19 07:29 05/02/19 08:42 Lorazepam (Ativan 2mg/ml 1ml) 2 mg Q2H PRN IV For Anxiety 05/01/19 12:45 05/08/19 12:44 05/02/19 11:48 Lorazepam (Ativan) 0.5 mg Q6H PRN ORAL For Anxiety 05/02/19 07:30 05/09/19 07:29 Magnesium Sulfate 100 ml @ 100 mls/hr Q1H IVPB 05/02/19 10:00 05/02/19 13:59 05/02/19 11:03 Morphine Sulfate (Morphine Sulfate) 4 mg Q4H PRN IVP Severe Pain (Pain Scale 7-10) 05/01/19 12:45 05/08/19 12:44 Norepinephrine Bitartrate 4 mg/ Dextrose 254 ml @ 0 mls/hr Q24H IV 05/01/19 12:45 05/31/19 12:44 05/01/19 15:45 Ondansetron HCl (Zofran) 4 mg Q6H PRN IVP Nausea & Vomiting 05/01/19 12:45 05/31/19 12:44 Pantoprazole (Protonix) 40 mg Q12HR IV 05/01/19 21:00 06/01/19 08:59 05/02/19 08:29 Potassium Phosphate 20 mm/ Sodium Chloride 281.6667 ml @ 46.944 m... ONCE ONCE IV 05/02/19 11:00 05/02/19 16:59 05/02/19 11:02 Potassium Chloride 100 ml @ 100 mls/hr Q1HR IVPB 05/02/19 10:00 05/02/19 13:59 05/02/19 11:02 Risperidone (RisperDAL) 0.25 mg QHS PRN GT Agitation 05/02/19 07:30 06/01/19 07:29 Sodium Chloride 1,000 ml @ 75 mls/hr [id number] IV 05/02/19 10:39 06/01/19 10:38 05/02/19 11:02 Vancomycin HCl (Vanco rx to dose) 1 ea DAILY PRN MISC . 05/01/19 12:45 05/31/19 12:44 Martin Sarmiento MD May 11, 2019 20:15
[2019-05-11] MEDS: Dyna-Hex 2% Top Sol 2oz TOPIC SCH (21:09)
--- NOTE | 2019-05-11 22:00 | NUR ---
NURSE NOTES: asleep reposition and suction iv lt picc dressing dry and inttNURSE NOTES: NURSE NOTES: asleep reposition and suction tolerating tube feeding no acute distress note
[2019-05-12] VITALS (24 sets, daily range): BP systolic 109–146; BP diastolic 39–78
--- NOTE | 2019-05-12 | NUR ---
NURSE NOTES: reposition and suction bs 118 insulin coverage given as order
[2019-05-12] MEDS: NovoLOG Insulin Flexpen SUBQ SCH ×4 (00:01→17:58)
--- NOTE | 2019-05-12 02:00 | NUR ---
NURSE NOTES: reposition and suction tolerating tube feeding no residual
--- NOTE | 2019-05-12 04:00 | NUR ---
NURSE NOTES: complete bed bath oral care wound care done reposition and suction
[2019-05-12 05:43] LABS: EOSINOPHILS % (AUTO) 2.6 % (0.0-3.0); HEMATOCRIT 29.4 % (37.0-47.0); HEMOGLOBIN 9.4 G/DL (12.0-16.0); LYMPHOCYTES % (AUTO) 27.6 % (20.0-45.0); MEAN CORPUSCULAR VOLUME 90 FL (80-99); MONOCYTES % (AUTO) 4.8 % (1.0-10.0); NEUTROPHILS % (AUTO) 64.1 % (45.0-75.0); PLATELET COUNT 239 K/UL (150-450); RED BLOOD COUNT 3.28 M/UL (4.20-5.40); RED CELL DISTRIBUTION WIDTH 16.1 % (11.6-14.8); WHITE BLOOD COUNT 8.4 K/UL (4.8-10.8)
[2019-05-12 06:12] LABS: ANION GAP 5 mmol/L (5-15); BLOOD UREA NITROGEN 36 mg/dL (7-18); CALCIUM 9.7 MG/DL (8.5-10.1); CARBON DIOXIDE 21 MMOL/L (21-32); CHLORIDE 110 MMOL/L (98-107); CREATININE 1.1 MG/DL (0.55-1.30); POTASSIUM 4.9 MMOL/L (3.5-5.1); SODIUM 136 MMOL/L (136-145)
--- NOTE | 2019-05-12 06:45 | NUR ---
RESPIRATORY NOTE: Received patient on current vent settings of AC RR:12, Vt:500, FiO2: 30%, and Peep of 5. Alarms are on and audible and not signs of respiratory distress noted.
--- NOTE | 2019-05-12 07:26 | NUR ---
HAND-OFF: Report given to ciara using s bar.
--- NOTE | 2019-05-12 07:27 | NUR ---
NURSE NOTES: Report received from MONA Doyle. Pt is awake and able to make eye contacts. Unable to follow commands. Non-verbal. Sinus rhythm with 1 AVB on telecommunicator. ETT 7.5 at 22cm lip line. AC 16, TV 500, FiO2 30%, P 5. O2 sat 100%. G-tube in place receiving Glucerna 1.2 at 50cc/hr. No residual noted. Hilario and rectal tube in place draining to gravity. COURTNEY PICC line patent and asymptomatic. Bed in lowest position. Side rails up x3. Will resume plan of care. Addendum: 05/12/19 at 1927 by JOSÉ MIGUEL KING RN RN NURSE NOTES: Report received from MONA Doyle. Pt is awake and able to make eye contacts. Unable to follow commands. Non-verbal. Sinus rhythm with 1 AVB on telecommunicator. ETT 7.5 at 22cm lip line. AC 16, TV 500, FiO2 30%, P 5. O2 sat 100%. G-tube in place receiving Glucerna 1.2 at 50cc/hr. No residual noted. Weeping from left arm noted. Hilario and rectal tube in place draining to gravity. COURTNEY PICC line patent and asymptomatic. Bed in lowest position. Side rails up x3. Will resume plan of care.
[2019-05-12] MEDS: Pantoprazole Inj IV SCH ×2 (08:19→20:07)
[2019-05-12] MEDS: Heparin 5000 units/ml inj SUBQ SCH ×2 (08:21→20:08)
--- NOTE | 2019-05-12 08:33 | Infectious Diseases Prog Note ---
Assessment/Plan Assessment/Plan Assessment/Recommendation: Tmax 104.2, SP New leukocytosis after steroid given, SP Lactate 3.4>1.6>2.4>3.3>3.8>1.0 UTI, SP 05/01 UA 10-15 WBC 05/01 UCx: MDR Klebsiella(R-imipenem, gent, cipro, nitrofurantoin, zosyn, bactrim. I-amikacin) PNA, SP 05/01 sputum cx: MRSA, Providencia(S-amikacin, cefepime, ceftazidime, cipro, erta, zosyn), normal resp magdalena 05/01 CXR: Right mainstem intubation. Suggest pulling the tube back about 3 cm. Atelectasis of the left lower lobe. Superimposed pneumonia or pleural effusion is not excluded. CHF suspected. 05/01 CXR: Endotracheal tube is 2 cm above the guille in good position. A left subclavian line is also present in good position of the tip projected over the SVC. Pulmonary edema again demonstrated. There is hazy opacity at the left lung base which is probably a pleural effusion. 05/02 CXR: Over one day, interval improvement of previously demonstrated left- sided pleural fluid and interstitial and airspace edema. Parenchymal disease is unchanged on the right. 05/03 CXR: Stable satisfactory positions of endotracheal tube, left arm PICC. Hazy opacities in the right mid and lower lung are probably unchanged. There is a small amount of hazy opacity at the left lung base persisting as well. The heart is normal in size. Allowing for technical differences, findings are overall unchanged r/o bacteremia 05/01 BCx: ng MRSA negative VRE negative CRE negative HTN COPD Schizophrenia DM G tube Parkinson CKD Protein calorie malnutrition Dementia Psychosis Gastritis Functional paraplegia Plan: monitor off antibiotics 05/11 SP Brad and Linezolid #7(#10 of total abx) 05/05 DC Cefepime #1 05/04 SP Colistin #1 05/04 DC Ertapenem, Amikacin, Vancomycin #3 05/01 SP Zosyn #1 steroid per pulm monitor temp, CBC, resp status aspiration precaution ETT management skin care oral care C diff if diarrhea persists Thank you for this consult. [facility] will continue to follow the patient with you. Subjective Allergies: Coded Allergies: No Known Allergies (Unverified , 05/01/19) Subjective Afebrile. no leukocytosis thin secretin minimal stool output Objective Vital Signs Last 24 Hour Vital Signs Date Time Temp Pulse Resp B/P (MAP) Pulse Ox O2 Delivery O2 Flow Rate FiO2 05/12/19 07:00 64 12 112/44 (66) 100 05/12/19 06:43 63 12 30 05/12/19 06:00 65 14 113/51 (71) 100 05/12/19 05:15 63 14 30 05/12/19 05:00 71 18 129/55 (79) 100 05/12/19 04:00 98.8 56 12 109/49 (69) 100 05/12/19 04:00 Mechanical Ventilator 05/12/19 04:00 69 05/12/19 04:00 30 05/12/19 03:00 58 12 131/56 (81) 100 05/12/19 02:39 59 12 30 05/12/19 02:00 57 12 116/48 (70) 100 05/12/19 01:03 60 12 30 05/12/19 01:00 98.8 61 19 143/59 (87) 100 05/12/19 01:00 67 12 123/51 (75) 100 05/12/19 00:00 30 05/12/19 00:00 98.8 61 19 143/59 (87) 100 05/12/19 00:00 65 05/12/19 00:00 Mechanical Ventilator 05/11/19 23:10 61 26 30 05/11/19 23:00 63 13 140/52 (81) 100 05/11/19 22:00 60 12 127/46 (73) 100 05/11/19 21:05 62 16 30 05/11/19 21:00 63 13 139/48 (78) 100 05/11/19 20:00 30 05/11/19 20:00 69 05/11/19 20:00 Mechanical Ventilator 05/11/19 20:00 99.0 61 12 123/44 (70) 99 05/11/19 19:19 64 18 30 05/11/19 19:00 68 14 139/58 (85) 100 05/11/19 18:00 63 14 118/42 (67) 99 05/11/19 17:21 66 15 30 05/11/19 17:00 99.4 64 25 126/97 (107) 100 05/11/19 16:00 Mechanical Ventilator 05/11/19 16:00 30 05/11/19 16:00 63 25 126/97 (107) 100 05/11/19 15:34 61 05/11/19 15:00 66 22 137/66 (89) 99 05/11/19 15:00 64 24 30 05/11/19 14:00 70 14 122/39 (66) 99 05/11/19 13:26 69 14 30 05/11/19 13:00 98.8 68 13 122/55 (77) 99 05/11/19 12:00 65 12 121/40 (67) 99 05/11/19 12:00 Mechanical Ventilator 05/11/19 11:54 66 05/11/19 11:00 68 24 126/43 (70) 99 05/11/19 10:39 30 05/11/19 10:30 64 21 30 05/11/19 10:16 63 27 100 Mechanical Ventilator 30 05/11/19 10:00 70 27 123/55 (77) 99 05/11/19 09:00 66 16 120/46 (70) 99 05/11/19 08:46 30 05/11/19 08:38 73 29 30 05/11/19 08:38 100 05/11/19 08:36 30 Height (Feet): 5 Height (Inches): 7.00 Weight (Pounds): 120 Objective VS: Tmax 104.2 Gen: NAD. twitching HEENT: ETT CV: RRR Resp: RRR. coarse. no wheezes Abd: soft. nondistended. normoactive Bs+ Neuro: not awake Laboratory Tests Test 05/11/19 09:07 05/12/19 05:22 Arterial Blood pH 7.510 (7.350-7.450) Arterial Blood Partial Pressure CO2 20.0 mmHg (35.0-45.0) *L Arterial Blood Partial Pressure O2 134.7 mmHg (75.0-100.0) H Arterial Blood HCO3 15.6 mmol/L (22.0-26.0) *L Arterial Blood Oxygen Saturation 98.1 % (95-100) Arterial Blood Base Excess -5.9 (-2-2) L Silas Test Positive White Blood Count 8.4 K/UL (4.8-10.8) Red Blood Count 3.28 M/UL (4.20-5.40) L Hemoglobin 9.4 G/DL (12.0-16.0) L Hematocrit 29.4 % (37.0-47.0) L Mean Corpuscular Volume 90 FL (80-99) Mean Corpuscular Hemoglobin 28.5 PG (27.0-31.0) Mean Corpuscular Hemoglobin Concent 31.9 G/DL (32.0-36.0) L Red Cell Distribution Width 16.1 % (11.6-14.8) H Platelet Count 239 K/UL (150-450) Mean Platelet Volume 5.4 FL (6.5-10.1) L Neutrophils (%) (Auto) 64.1 % (45.0-75.0) Lymphocytes (%) (Auto) 27.6 % (20.0-45.0) Monocytes (%) (Auto) 4.8 % (1.0-10.0) Eosinophils (%) (Auto) 2.6 % (0.0-3.0) Basophils (%) (Auto) 1.0 % (0.0-2.0) Sodium Level 136 MMOL/L (136-145) Potassium Level 4.9 MMOL/L (3.5-5.1) Chloride Level 110 MMOL/L (98-107) H Carbon Dioxide Level 21 MMOL/L (21-32) Anion Gap 5 mmol/L (5-15) Blood Urea Nitrogen 36 mg/dL (7-18) H Creatinine 1.1 MG/DL (0.55-1.30) Estimat Glomerular Filtration Rate mL/min (>60) Glucose Level 125 MG/DL (74-106) H Calcium Level 9.7 MG/DL (8.5-10.1) Current Medications Medications (Trade) Dose Ordered Sig/Vane Route PRN Reason Start Time Stop Time Status Last Admin Dose Admin Acetaminophen (Tylenol) 650 mg Q4H PRN NG fever 05/04/19 09:30 05/31/19 12:44 05/04/19 10:00 Calcitonin [place] (Miacalcin) 1 sprays DAILY NASAL 05/04/19 09:00 06/03/19 08:59 05/12/19 08:19 Chlorhexidine Gluconate (Shanice-Hex 2%) 1 applic DAILY@1999 TOPIC 05/01/19 20:00 05/31/19 19:59 05/11/19 21:09 Dextrose (Dextrose 50%) 25 ml Q30M PRN IV Hypoglycemia 05/02/19 06:30 06/01/19 06:29 Dextrose (Dextrose 50%) 50 ml Q30M PRN IV Hypoglycemia 05/02/19 06:30 06/01/19 06:29 Heparin Sodium (Porcine) (Heparin 5000 units/ml) 5,000 units EVERY 12 HOURS SUBQ 05/01/19 21:00 05/31/19 20:59 05/12/19 08:21 Insulin Aspart (NovoLOG) EVERY 6 HOURS SUBQ 05/02/19 07:30 06/01/19 07:29 05/12/19 05:42 Midodrine (Pro-Amatine) 5 mg THREE TIMES A DAY NG 05/06/19 13:00 06/04/19 12:59 05/12/19 08:19 Norepinephrine Bitartrate 4 mg/ Dextrose 254 ml @ 0 mls/hr Q24H IV 05/01/19 12:45 05/31/19 12:44 05/04/19 18:15 Ondansetron HCl (Zofran) 4 mg Q6H PRN IVP Nausea & Vomiting 05/01/19 12:45 05/31/19 12:44 Pantoprazole (Protonix) 40 mg Q12HR IV 05/01/19 21:00 06/01/19 08:59 05/12/19 08:19 Potassium Chloride (K-Dur) 20 meq TWICE A DAY NG 05/04/19 09:18 06/03/19 09:17 05/12/19 08:19 Risperidone (RisperDAL) 0.25 mg QHS PRN GT Agitation 05/02/19 07:30 06/01/19 07:29 eJnnifer Palm MD May 12, 2019 08:33
--- NOTE | 2019-05-12 09:15 | NUR ---
NURSE NOTES: Pt lasted 3 minutes for weaning as per RT. Bite block applied. Turned and repositioned pt.
--- NOTE | 2019-05-12 09:15 | Nephrology Progress Note ---
Assessment/Plan Problem List: (1) Hypercalcemia Assessment: improving (2) Septic shock (3) Acute kidney injury (4) Acute respiratory failure (5) Dehydration (6) Anemia Assessment Acute renal failure Dehydration / HyperNatremia / HyperCalcemia Septic Shock Respiratory failure / COPD NSTEMI DM PEG Schizophrenia Anemia Plan Aredia 90 mg IV and Nasal Calcitonin repeat Aredia 05/12 correct lytes prn Lasix trial Midodrine ? weaning vs Trach IV fluid change to 1/2 NS K and Phos and Mag supplement as needed monitor renal parameters and Calcium urine studies anemia au avoid Nephrotoxics Subjective ROS Limited/Unobtainable: Yes Objective Objective Last 24 Hour Vital Signs Date Time Temp Pulse Resp B/P (MAP) Pulse Ox O2 Delivery O2 Flow Rate FiO2 05/12/19 08:53 30 05/12/19 08:52 100 05/12/19 07:00 64 12 112/44 (66) 100 05/12/19 06:43 63 12 30 05/12/19 06:00 65 14 113/51 (71) 100 05/12/19 05:15 63 14 30 05/12/19 05:00 71 18 129/55 (79) 100 05/12/19 04:00 98.8 56 12 109/49 (69) 100 05/12/19 04:00 Mechanical Ventilator 05/12/19 04:00 69 05/12/19 04:00 30 05/12/19 03:00 58 12 131/56 (81) 100 05/12/19 02:39 59 12 30 05/12/19 02:00 57 12 116/48 (70) 100 05/12/19 01:03 60 12 30 05/12/19 01:00 98.8 61 19 143/59 (87) 100 05/12/19 01:00 67 12 123/51 (75) 100 05/12/19 00:00 30 05/12/19 00:00 98.8 61 19 143/59 (87) 100 05/12/19 00:00 65 05/12/19 00:00 Mechanical Ventilator 05/11/19 23:10 61 26 30 05/11/19 23:00 63 13 140/52 (81) 100 05/11/19 22:00 60 12 127/46 (73) 100 05/11/19 21:05 62 16 30 05/11/19 21:00 63 13 139/48 (78) 100 05/11/19 20:00 30 05/11/19 20:00 69 05/11/19 20:00 Mechanical Ventilator 05/11/19 20:00 99.0 61 12 123/44 (70) 99 05/11/19 19:19 64 18 30 05/11/19 19:00 68 14 139/58 (85) 100 05/11/19 18:00 63 14 118/42 (67) 99 05/11/19 17:21 66 15 30 05/11/19 17:00 99.4 64 25 126/97 (107) 100 05/11/19 16:00 Mechanical Ventilator 05/11/19 16:00 30 05/11/19 16:00 63 25 126/97 (107) 100 05/11/19 15:34 61 05/11/19 15:00 66 22 137/66 (89) 99 05/11/19 15:00 64 24 30 05/11/19 14:00 70 14 122/39 (66) 99 05/11/19 13:26 69 14 30 05/11/19 13:00 98.8 68 13 122/55 (77) 99 05/11/19 12:00 65 12 121/40 (67) 99 05/11/19 12:00 Mechanical Ventilator 05/11/19 11:54 66 05/11/19 11:00 68 24 126/43 (70) 99 05/11/19 10:39 30 05/11/19 10:30 64 21 30 05/11/19 10:16 63 27 100 Mechanical Ventilator 30 05/11/19 10:00 70 27 123/55 (77) 99 Intake and Output 05/11/19 05/12/19 18:59 06:59 Intake Total 805 ml 650 ml Output Total 1100 ml 750 ml Balance -295 ml -100 ml IV Total 55 ml Tube Feeding 600 ml 600 ml Other 150 ml 50 ml Output Urine Total 1030 ml 750 ml Stool Total 70 ml # Bowel Movements 50 Laboratory Tests 05/12/19 05:22: White Blood Count 8.4, Red Blood Count 3.28L, Hemoglobin 9.4L, Hematocrit 29.4L , Mean Corpuscular Volume 90, Mean Corpuscular Hemoglobin 28.5, Mean Corpuscular Hemoglobin Concent 31.9L, Red Cell Distribution Width 16.1H, Platelet Count 239, Mean Platelet Volume 5.4L, Neutrophils (%) (Auto) 64.1, Lymphocytes (%) (Auto) 27.6, Monocytes (%) (Auto) 4.8, Eosinophils (%) (Auto) 2.6, Basophils (%) (Auto) 1.0, Sodium Level 136, Potassium Level 4.9, Chloride Level 110H, Carbon Dioxide Level 21, Anion Gap 5, Blood Urea Nitrogen 36H, Creatinine 1.1, Estimat Glomerular Filtration Rate , Glucose Level 125H, Calcium Level 9.7 Height (Feet): 5 Height (Inches): 7.00 Weight (Pounds): 120 General Appearance: no apparent distress EENT: other - vented Cardiovascular: normal rate Respiratory/Chest: decreased breath sounds Abdomen: soft Objective no change Fox Ho MD May 12, 2019 09:15
--- NOTE | 2019-05-12 09:39 | General Progress Note ---
Assessment/Plan Problem List: (1) Acute respiratory failure ICD Codes: J96.00 - Acute respiratory failure, unspecified whether with hypoxia or hypercapnia SNOMED: 03042320 (2) Septic shock ICD Codes: A41.9 - Sepsis, unspecified organism; R65.21 - Severe sepsis with septic shock SNOMED: 54513501, 0900301 (3) Diabetes mellitus ICD Codes: E11.9 - Type 2 diabetes mellitus without complications SNOMED: 77523415 (4) Hypertension ICD Codes: I10 - Essential (primary) hypertension SNOMED: 75082892 (5) COPD (chronic obstructive pulmonary disease) ICD Codes: J44.9 - Chronic obstructive pulmonary disease, unspecified SNOMED: 87403054 (6) Anemia ICD Codes: D64.9 - Anemia, unspecified SNOMED: 582683354 (7) Schizophrenia ICD Codes: F20.9 - Schizophrenia, unspecified SNOMED: 31645320 Status: unchanged Assessment/Plan: vent abx bp bs control cbc bmp am ltach eval Subjective Constitutional: Reports: weakness Allergies: Coded Allergies: No Known Allergies (Unverified , 05/01/19) All Systems: reviewed and negative except above Subjective intubated sedated in icu Objective Last 24 Hour Vital Signs Date Time Temp Pulse Resp B/P (MAP) Pulse Ox O2 Delivery O2 Flow Rate FiO2 05/12/19 08:53 30 05/12/19 08:52 100 05/12/19 07:00 64 12 112/44 (66) 100 05/12/19 06:43 63 12 30 05/12/19 06:00 65 14 113/51 (71) 100 05/12/19 05:15 63 14 30 05/12/19 05:00 71 18 129/55 (79) 100 05/12/19 04:00 98.8 56 12 109/49 (69) 100 05/12/19 04:00 Mechanical Ventilator 05/12/19 04:00 69 05/12/19 04:00 30 05/12/19 03:00 58 12 131/56 (81) 100 05/12/19 02:39 59 12 30 05/12/19 02:00 57 12 116/48 (70) 100 05/12/19 01:03 60 12 30 05/12/19 01:00 98.8 61 19 143/59 (87) 100 05/12/19 01:00 67 12 123/51 (75) 100 05/12/19 00:00 30 05/12/19 00:00 98.8 61 19 143/59 (87) 100 05/12/19 00:00 65 05/12/19 00:00 Mechanical Ventilator 05/11/19 23:10 61 26 30 05/11/19 23:00 63 13 140/52 (81) 100 05/11/19 22:00 60 12 127/46 (73) 100 05/11/19 21:05 62 16 30 05/11/19 21:00 63 13 139/48 (78) 100 05/11/19 20:00 30 05/11/19 20:00 69 05/11/19 20:00 Mechanical Ventilator 05/11/19 20:00 99.0 61 12 123/44 (70) 99 05/11/19 19:19 64 18 30 05/11/19 19:00 68 14 139/58 (85) 100 05/11/19 18:00 63 14 118/42 (67) 99 05/11/19 17:21 66 15 30 05/11/19 17:00 99.4 64 25 126/97 (107) 100 05/11/19 16:00 Mechanical Ventilator 05/11/19 16:00 30 05/11/19 16:00 63 25 126/97 (107) 100 05/11/19 15:34 61 05/11/19 15:00 66 22 137/66 (89) 99 05/11/19 15:00 64 24 30 05/11/19 14:00 70 14 122/39 (66) 99 05/11/19 13:26 69 14 30 05/11/19 13:00 98.8 68 13 122/55 (77) 99 05/11/19 12:00 65 12 121/40 (67) 99 05/11/19 12:00 Mechanical Ventilator 05/11/19 11:54 66 05/11/19 11:00 68 24 126/43 (70) 99 05/11/19 10:39 30 05/11/19 10:30 64 21 30 05/11/19 10:16 63 27 100 Mechanical Ventilator 30 05/11/19 10:00 70 27 123/55 (77) 99 Intake and Output 05/11/19 05/12/19 18:59 06:59 Intake Total 805 ml 650 ml Output Total 1100 ml 750 ml Balance -295 ml -100 ml IV Total 55 ml Tube Feeding 600 ml 600 ml Other 150 ml 50 ml Output Urine Total 1030 ml 750 ml Stool Total 70 ml # Bowel Movements 50 Laboratory Tests 05/12/19 05:22: White Blood Count 8.4, Red Blood Count 3.28L, Hemoglobin 9.4L, Hematocrit 29.4L , Mean Corpuscular Volume 90, Mean Corpuscular Hemoglobin 28.5, Mean Corpuscular Hemoglobin Concent 31.9L, Red Cell Distribution Width 16.1H, Platelet Count 239, Mean Platelet Volume 5.4L, Neutrophils (%) (Auto) 64.1, Lymphocytes (%) (Auto) 27.6, Monocytes (%) (Auto) 4.8, Eosinophils (%) (Auto) 2.6, Basophils (%) (Auto) 1.0, Sodium Level 136, Potassium Level 4.9, Chloride Level 110H, Carbon Dioxide Level 21, Anion Gap 5, Blood Urea Nitrogen 36H, Creatinine 1.1, Estimat Glomerular Filtration Rate , Glucose Level 125H, Calcium Level 9.7 Height (Feet): 5 Height (Inches): 7.00 Weight (Pounds): 120 General Appearance: lethargic EENT: normal ENT inspection Neck: normal alignment Cardiovascular: normal peripheral pulses, normal rate, regular rhythm Respiratory/Chest: chest wall non-tender, lungs clear, normal breath sounds Abdomen: normal bowel sounds, non tender, soft Extremities: normal inspection Edema: no edema noted Arm (L), no edema noted Arm (R), no edema noted Leg (L), no edema noted Leg (R), no edema noted Pedal (L), no edema noted Pedal (R), no edema noted Generalized Neurologic: motor weakness Skin: normal pigmentation, warm/dry Cosme Chong DO May 12, 2019 09:39
--- NOTE | 2019-05-12 10:24 | NUR ---
*-* DISCHARGE PLANNING *-* PATIENT HAS BEEN REFERRED TO: [facility] P: [phone] P: [phone] Addendum: 05/12/19 at 1037 by FELI MARSHALL CM DISREGARD THIS NOTE
--- NOTE | 2019-05-12 10:36 | Pulmonolgy Critical Care Note ---
Critical Care - Asmt/Plan Problems: (1) Acute respiratory failure (2) Septic shock (3) COPD (chronic obstructive pulmonary disease) (4) Hypernatremia (5) Acute kidney injury (6) Hypertension (7) Diabetes mellitus (8) Feeding by G-tube Respiratory: monitor respiratory rate, adjust FIO2 Cardiac: continue pressors, continue to monitor HR/BP Renal: F/U I&O, keep IV fluid Infectious Disease: check cultures Gastrointestinal: continue feedings/current rate Endocrine: check TSH Hematologic: monitor H/H, transfuse if hgb<8.5 Neurologic: PRN Ativan, keep patient comfortable Affect: PRN ativan Prophylaxis: Heparin Time Spent (Minutes): 40 Notes Reviewed: cardio Discussed with: nurses, consultants, correctional counselor/case managercompletion manager - Objective Last 24 Hour Vital Signs Date Time Temp Pulse Resp B/P (MAP) Pulse Ox O2 Delivery O2 Flow Rate FiO2 05/12/19 10:29 64 13 30 05/12/19 10:00 66 13 131/50 (77) 100 05/12/19 09:00 69 23 129/52 (77) 100 05/12/19 08:53 30 05/12/19 08:52 100 05/12/19 08:00 98.8 59 12 112/39 (63) 100 05/12/19 08:00 30 05/12/19 08:00 Mechanical Ventilator 05/12/19 07:00 64 12 112/44 (66) 100 05/12/19 06:43 63 12 30 05/12/19 06:00 65 14 113/51 (71) 100 05/12/19 05:15 63 14 30 05/12/19 05:00 71 18 129/55 (79) 100 05/12/19 04:00 98.8 56 12 109/49 (69) 100 05/12/19 04:00 Mechanical Ventilator 05/12/19 04:00 69 05/12/19 04:00 30 05/12/19 03:00 58 12 131/56 (81) 100 05/12/19 02:39 59 12 30 05/12/19 02:00 57 12 116/48 (70) 100 05/12/19 01:03 60 12 30 05/12/19 01:00 98.8 61 19 143/59 (87) 100 05/12/19 01:00 67 12 123/51 (75) 100 05/12/19 00:00 30 05/12/19 00:00 98.8 61 19 143/59 (87) 100 05/12/19 00:00 65 05/12/19 00:00 Mechanical Ventilator 05/11/19 23:10 61 26 30 05/11/19 23:00 63 13 140/52 (81) 100 05/11/19 22:00 60 12 127/46 (73) 100 05/11/19 21:05 62 16 30 05/11/19 21:00 63 13 139/48 (78) 100 05/11/19 20:00 30 05/11/19 20:00 69 05/11/19 20:00 Mechanical Ventilator 05/11/19 20:00 99.0 61 12 123/44 (70) 99 05/11/19 19:19 64 18 30 05/11/19 19:00 68 14 139/58 (85) 100 05/11/19 18:00 63 14 118/42 (67) 99 05/11/19 17:21 66 15 30 05/11/19 17:00 99.4 64 25 126/97 (107) 100 05/11/19 16:00 Mechanical Ventilator 05/11/19 16:00 30 05/11/19 16:00 63 25 126/97 (107) 100 05/11/19 15:34 61 05/11/19 15:00 66 22 137/66 (89) 99 05/11/19 15:00 64 24 30 05/11/19 14:00 70 14 122/39 (66) 99 05/11/19 13:26 69 14 30 05/11/19 13:00 98.8 68 13 122/55 (77) 99 05/11/19 12:00 65 12 121/40 (67) 99 05/11/19 12:00 Mechanical Ventilator 05/11/19 11:54 66 05/11/19 11:00 68 24 126/43 (70) 99 05/11/19 10:39 30 Status: sedated Condition: critical HEENT: atraumatic Neck: full ROM Abdomen: soft, feeding tube Extremities: no C/C/E Decubiti: location Accucheck: 120 Critical Care - Subjective ROS Limited/Unobtainable: Yes Condition: critical EKG Rhythm: Sinus Rhythm FI02: 30 Vent Support Breath Rate: 12 Vent Support Mode: AC Vent Tidal Volume: 500 Sputum Amount: Small PEEP: 5.0 PIP: 24 Tube Feeding Amount: 50 I&O: Intake and Output 05/11/19 05/12/19 19:00 07:00 Intake Total 805 ml 650 ml Output Total 1080 ml 790 ml Balance -275 ml -140 ml IV Total 55 ml Tube Feeding 600 ml 600 ml Other 150 ml 50 ml Output Urine Total 1010 ml 790 ml Stool Total 70 ml CXR: ET in good position ET-Tube: 7.5 ET Position: 22 Labs: Laboratory Tests Test 05/12/19 05:22 White Blood Count 8.4 K/UL (4.8-10.8) Red Blood Count 3.28 M/UL (4.20-5.40) L Hemoglobin 9.4 G/DL (12.0-16.0) L Hematocrit 29.4 % (37.0-47.0) L Mean Corpuscular Volume 90 FL (80-99) Mean Corpuscular Hemoglobin 28.5 PG (27.0-31.0) Mean Corpuscular Hemoglobin Concent 31.9 G/DL (32.0-36.0) L Red Cell Distribution Width 16.1 % (11.6-14.8) H Platelet Count 239 K/UL (150-450) Mean Platelet Volume 5.4 FL (6.5-10.1) L Neutrophils (%) (Auto) 64.1 % (45.0-75.0) Lymphocytes (%) (Auto) 27.6 % (20.0-45.0) Monocytes (%) (Auto) 4.8 % (1.0-10.0) Eosinophils (%) (Auto) 2.6 % (0.0-3.0) Basophils (%) (Auto) 1.0 % (0.0-2.0) Sodium Level 136 MMOL/L (136-145) Potassium Level 4.9 MMOL/L (3.5-5.1) Chloride Level 110 MMOL/L (98-107) H Carbon Dioxide Level 21 MMOL/L (21-32) Anion Gap 5 mmol/L (5-15) Blood Urea Nitrogen 36 mg/dL (7-18) H Creatinine 1.1 MG/DL (0.55-1.30) Estimat Glomerular Filtration Rate mL/min (>60) Glucose Level 125 MG/DL (74-106) H Calcium Level 9.7 MG/DL (8.5-10.1) Yancy Lai MD May 12, 2019 10:36
--- NOTE | 2019-05-12 10:36 | NUR ---
*-* DISCHARGE PLANNING *-* PATIENT HAS BEEN REFERRED TO: [facility] P: [phone] [facility] F: [phone]
[2019-05-12] MEDS ORDERED: Pamidronate Disodium Inj 60 MG in Sodium Chloride 550 ML IVPB ONE (11:00)
--- NOTE | 2019-05-12 11:58 | NUR ---
NURSE NOTES: Turned and repositioned pt. Oral care done. Afebrile. VSS. Will continue to monitor.
--- NOTE | 2019-05-12 13:03 | General Progress Note ---
Assessment/Plan Status: unchanged Assessment/Plan: Assessment/Plan Problems: (1) Septic shock ICD Codes: A41.9 - Sepsis, unspecified organism; R65.21 - Severe sepsis with septic shock SNOMED: 53659271, 1360794 (2) Feeding by G-tube ICD Codes: Z93.1 - Gastrostomy status SNOMED: 350553543, 713877200, 987150259 (3) Diabetes mellitus ICD Codes: E11.9 - Type 2 diabetes mellitus without complications SNOMED: 71163076 (4) Anemia ICD Codes: D64.9 - Anemia, unspecified SNOMED: 447424039 Status: unchanged Status Narrative Assessment/Plan No plans for any GI procedures at this given time given the patient's elevated troponin level and hemodynamic instability. occult blood stool to evaluate for any GI bleed, negative Monitor H&H, PRN transfusions PPI GTFs Electrolyte correction, increase free water flushes for hypernatremia GT site care daily and as needed We will follow on a daily basis with additional recommendation Subjective ROS Limited/Unobtainable: No Allergies: Coded Allergies: No Known Allergies (Unverified , 05/01/19) Objective Last 24 Hour Vital Signs Date Time Temp Pulse Resp B/P (MAP) Pulse Ox O2 Delivery O2 Flow Rate FiO2 05/12/19 12:55 74 16 30 05/12/19 12:00 30 05/12/19 12:00 Mechanical Ventilator 05/12/19 12:00 98.6 70 19 133/60 (84) 100 05/12/19 11:00 72 17 146/53 (84) 98 05/12/19 10:29 64 13 30 05/12/19 10:00 66 13 131/50 (77) 100 05/12/19 09:00 69 23 129/52 (77) 100 05/12/19 08:53 30 05/12/19 08:52 100 05/12/19 08:49 63 05/12/19 08:00 98.8 59 12 112/39 (63) 100 05/12/19 08:00 30 05/12/19 08:00 Mechanical Ventilator 05/12/19 07:00 64 12 112/44 (66) 100 05/12/19 06:43 63 12 30 05/12/19 06:00 65 14 113/51 (71) 100 05/12/19 05:15 63 14 30 05/12/19 05:00 71 18 129/55 (79) 100 05/12/19 04:00 98.8 56 12 109/49 (69) 100 05/12/19 04:00 Mechanical Ventilator 05/12/19 04:00 69 05/12/19 04:00 30 05/12/19 03:00 58 12 131/56 (81) 100 05/12/19 02:39 59 12 30 05/12/19 02:00 57 12 116/48 (70) 100 05/12/19 01:03 60 12 30 05/12/19 01:00 98.8 61 19 143/59 (87) 100 05/12/19 01:00 67 12 123/51 (75) 100 05/12/19 00:00 30 05/12/19 00:00 98.8 61 19 143/59 (87) 100 05/12/19 00:00 65 05/12/19 00:00 Mechanical Ventilator 05/11/19 23:10 61 26 30 05/11/19 23:00 63 13 140/52 (81) 100 05/11/19 22:00 60 12 127/46 (73) 100 05/11/19 21:05 62 16 30 05/11/19 21:00 63 13 139/48 (78) 100 05/11/19 20:00 30 05/11/19 20:00 69 05/11/19 20:00 Mechanical Ventilator 05/11/19 20:00 99.0 61 12 123/44 (70) 99 05/11/19 19:19 64 18 30 05/11/19 19:00 68 14 139/58 (85) 100 05/11/19 18:00 63 14 118/42 (67) 99 05/11/19 17:21 66 15 30 05/11/19 17:00 99.4 64 25 126/97 (107) 100 05/11/19 16:00 Mechanical Ventilator 05/11/19 16:00 30 05/11/19 16:00 63 25 126/97 (107) 100 05/11/19 15:34 61 05/11/19 15:00 66 22 137/66 (89) 99 05/11/19 15:00 64 24 30 05/11/19 14:00 70 14 122/39 (66) 99 05/11/19 13:26 69 14 30 Intake and Output 05/11/19 05/12/19 19:00 07:00 Intake Total 805 ml 650 ml Output Total 1080 ml 790 ml Balance -275 ml -140 ml IV Total 55 ml Tube Feeding 600 ml 600 ml Other 150 ml 50 ml Output Urine Total 1010 ml 790 ml Stool Total 70 ml Laboratory Tests 05/12/19 05:22: White Blood Count 8.4, Red Blood Count 3.28L, Hemoglobin 9.4L, Hematocrit 29.4L , Mean Corpuscular Volume 90, Mean Corpuscular Hemoglobin 28.5, Mean Corpuscular Hemoglobin Concent 31.9L, Red Cell Distribution Width 16.1H, Platelet Count 239, Mean Platelet Volume 5.4L, Neutrophils (%) (Auto) 64.1, Lymphocytes (%) (Auto) 27.6, Monocytes (%) (Auto) 4.8, Eosinophils (%) (Auto) 2.6, Basophils (%) (Auto) 1.0, Sodium Level 136, Potassium Level 4.9, Chloride Level 110H, Carbon Dioxide Level 21, Anion Gap 5, Blood Urea Nitrogen 36H, Creatinine 1.1, Estimat Glomerular Filtration Rate , Glucose Level 125H, Calcium Level 9.7 Height (Feet): 5 Height (Inches): 7.00 Weight (Pounds): 120 General Appearance: alert EENT: normal ENT inspection Neck: supple Cardiovascular: normal rate Respiratory/Chest: decreased breath sounds Abdomen: normal bowel sounds, non tender, soft Extremities: non-tender Alfredo Lau MD May 12, 2019 13:03
--- NOTE | 2019-05-12 13:03 | NUR ---
NURSE NOTES: Dr Lau here to see the patient. Updated him with pt's current condition. No new orders. Pt is sleeping in bed. No signs and symptoms of pain or discomfort. Will continue to monitor.
--- NOTE | 2019-05-12 13:52 | NUR ---
PILLAR MANMEDICAL DOCTOR SI: RESP FAILURE ETT/VENT SUPPORT T. 98.6 HR 70 RR 17 B/P 122/70 AC 12 TV 500 FIO2 50% PEEP 5 BUN 36 IS; MIDODRINE PO HEAPRIN SUBC ABT IV ICU STATUS
--- NOTE | 2019-05-12 15:01 | Progress Note ---
DATE: 05/12/2019 SUBJECTIVE: This is a 78-year-old female patient . She is very confused, disorganized. She has respiratory failure and decline in cognition below the baseline. She has altered mental status, confusion, decline in cognition below baseline. That is why, her attending physician has requested daily psychiatric consultation for this patient. She has altered mental status, confusion, mood lability. DIAGNOSIS: Major depressive disorder, severe, recurrent with psychotic features, rule out dementia with psychosis. PLAN: Risperdal 0.25 mg per G-tube at bedtime p.r.n. anxiety, agitation. She will continued to be followed by Psychiatry throughout hospital course. Chart reviewed. Discussed with staff. Seen and assessed at bedside. Kristen Rodgers M.D. DR: HARRIS JOB#: [id number] CC:
--- NOTE | 2019-05-12 15:10 | NUR ---
RD ASSESSMENT & RECOMMENDATIONS SEE CARE ACTIVITY FOR COMPLETE ASSESSMENT DAILY ESTIMATED NEEDS: Needs based on Critical care, wounds; 48.6kg 22- 30 kcals/kg 6103-3430 total kcals 1.25-2 g protein/kg 61-97 g total protein 25-30 mL/kg 2737-3557 total fluid mLs NUTRITION DIAGNOSIS: 1) Increased kcal and pro needs r/t wound healing AEB pt adm w/ multiple wounds, including full thickness sacral wounds, refer to WC eval. 2) Swallowing difficulty r/t respiratory status AEB pt is intubated, PEG dep, on GT feeds. CURRENT TF:Glucerna 1.2 @50ml/hr x 24 hrs ENTERAL NUTRITION RECOMMENDATIONS: Glucerna 1.2 @50ml/hr x 24 hrs to provide 1200ml, 1440kcal, 72g prot, 966ml free water - Maintain current TF w/ continued TF tolerance - HOB over 30 degrees - H20 flush of 150ml q 6 hrs W/ consistent diarrhea, rec TF change to elemental TF of Vital AF 1.2 @ 50ml/hr x 24 hrs to provide 1200ml, 1440kcal, 90g prot, 973ml free water ADDITIONAL RECOMMENDATIONS: 1) Per SNF: 107 lbs, 60 inches 2) Monitor for residuals : Erythromycin dc'ed 05/10 3) Wound care: Add TANYA BID + Vit C 250mg BID 4) Monitor lytes-> replete as needed 5) Increase water flushes: BUN trending up 6) Consider probiotics for diarrhea 7) Monitor HD stability: pressor held since 05/05
--- NOTE | 2019-05-12 15:30 | NUR ---
NURSE NOTES: Pt is tolerating feeding well. No residual noted. Pt is still able to make eye contacts but unable to follow commands. Cleaned pt for small amount of leaked rectal tube. and repositioned pt. Addendum: 05/12/19 at 1936 by JOSÉ MIGUEL KING RN RN NURSE NOTES: Pt is tolerating feeding well. No residual noted. Pt is still able to make eye contacts but unable to follow commands. Cleaned pt for small amount of leaked rectal tube and repositioned pt. Changed sacral dressing as per protocol.
--- NOTE | 2019-05-12 15:48 | Surgery Progress Note ---
Surgery Progress Note Subjective Additional Comments labs improved exam stable ill appearing on vent support ARU eval Objective Last 24 Hour Vital Signs Date Time Temp Pulse Resp B/P (MAP) Pulse Ox O2 Delivery O2 Flow Rate FiO2 05/12/19 15:00 67 17 140/48 (78) 99 05/12/19 14:47 73 16 30 05/12/19 14:00 71 16 128/78 (95) 100 05/12/19 13:00 70 17 122/45 (70) 100 05/12/19 12:55 74 16 30 05/12/19 12:00 30 05/12/19 12:00 73 05/12/19 12:00 Mechanical Ventilator 05/12/19 12:00 98.6 70 19 133/60 (84) 100 05/12/19 11:00 72 17 146/53 (84) 98 05/12/19 10:29 64 13 30 05/12/19 10:00 66 13 131/50 (77) 100 05/12/19 09:00 69 23 129/52 (77) 100 05/12/19 08:53 30 05/12/19 08:52 100 05/12/19 08:49 63 05/12/19 08:00 98.8 59 12 112/39 (63) 100 05/12/19 08:00 30 05/12/19 08:00 Mechanical Ventilator 05/12/19 07:00 64 12 112/44 (66) 100 05/12/19 06:43 63 12 30 05/12/19 06:00 65 14 113/51 (71) 100 05/12/19 05:15 63 14 30 05/12/19 05:00 71 18 129/55 (79) 100 05/12/19 04:00 98.8 56 12 109/49 (69) 100 05/12/19 04:00 Mechanical Ventilator 05/12/19 04:00 69 05/12/19 04:00 30 05/12/19 03:00 58 12 131/56 (81) 100 05/12/19 02:39 59 12 30 05/12/19 02:00 57 12 116/48 (70) 100 05/12/19 01:03 60 12 30 05/12/19 01:00 98.8 61 19 143/59 (87) 100 05/12/19 01:00 67 12 123/51 (75) 100 05/12/19 00:00 30 05/12/19 00:00 98.8 61 19 143/59 (87) 100 05/12/19 00:00 65 05/12/19 00:00 Mechanical Ventilator 05/11/19 23:10 61 26 30 05/11/19 23:00 63 13 140/52 (81) 100 05/11/19 22:00 60 12 127/46 (73) 100 05/11/19 21:05 62 16 30 05/11/19 21:00 63 13 139/48 (78) 100 05/11/19 20:00 30 05/11/19 20:00 69 05/11/19 20:00 Mechanical Ventilator 05/11/19 20:00 99.0 61 12 123/44 (70) 99 05/11/19 19:19 64 18 30 05/11/19 19:00 68 14 139/58 (85) 100 05/11/19 18:00 63 14 118/42 (67) 99 05/11/19 17:21 66 15 30 05/11/19 17:00 99.4 64 25 126/97 (107) 100 05/11/19 16:00 Mechanical Ventilator 05/11/19 16:00 30 05/11/19 16:00 63 25 126/97 (107) 100 I&O Intake and Output 05/11/19 05/12/19 19:00 07:00 Intake Total 805 ml 650 ml Output Total 1080 ml 790 ml Balance -275 ml -140 ml IV Total 55 ml Tube Feeding 600 ml 600 ml Other 150 ml 50 ml Output Urine Total 1010 ml 790 ml Stool Total 70 ml Dressing: other Wound: other Drains: other Cardiovascular: RSR Respiratory: decreased breath sounds Abdomen: soft, present bowel sounds Extremities: no cyanosis, other Laboratory Tests Test 05/12/19 05:22 White Blood Count 8.4 K/UL (4.8-10.8) Red Blood Count 3.28 M/UL (4.20-5.40) L Hemoglobin 9.4 G/DL (12.0-16.0) L Hematocrit 29.4 % (37.0-47.0) L Mean Corpuscular Volume 90 FL (80-99) Mean Corpuscular Hemoglobin 28.5 PG (27.0-31.0) Mean Corpuscular Hemoglobin Concent 31.9 G/DL (32.0-36.0) L Red Cell Distribution Width 16.1 % (11.6-14.8) H Platelet Count 239 K/UL (150-450) Mean Platelet Volume 5.4 FL (6.5-10.1) L Neutrophils (%) (Auto) 64.1 % (45.0-75.0) Lymphocytes (%) (Auto) 27.6 % (20.0-45.0) Monocytes (%) (Auto) 4.8 % (1.0-10.0) Eosinophils (%) (Auto) 2.6 % (0.0-3.0) Basophils (%) (Auto) 1.0 % (0.0-2.0) Sodium Level 136 MMOL/L (136-145) Potassium Level 4.9 MMOL/L (3.5-5.1) Chloride Level 110 MMOL/L (98-107) H Carbon Dioxide Level 21 MMOL/L (21-32) Anion Gap 5 mmol/L (5-15) Blood Urea Nitrogen 36 mg/dL (7-18) H Creatinine 1.1 MG/DL (0.55-1.30) Estimat Glomerular Filtration Rate mL/min (>60) Glucose Level 125 MG/DL (74-106) H Calcium Level 9.7 MG/DL (8.5-10.1) Plan Problems: (1) Sacral decubitus ulcer, stage III Assessment & Plan: Patient presented on admission with multiple pressure injuries noted. Patient seen by team during admission and I was called on to evaluate patient Full Thickness Stage III Pressure injury sacrum. Base of wound 100% necrotic with red margins(L)2.5cm x (W)2.7cm with surrounding maroon and indurated borders (L)7.5cm x (W)8.5cm. Periwound soft and with edema. Maroon and indurated area noted to R buttocks. Non-blanching erythema noted to R trochanteric.(L)6.5cm x (W)7.5cm. Elongated wound noted to medial/posterior R thigh(L)0.6cm x (W)5.2cm. L heel boggy with non-blanching erythema. Non-Blanchable erythema R heel without fluctuance. Recommendations: Wash wounds daily with NS or soap/water Apply therahoney or hydrogel impregnated gauze to sacral wound, cover with foam dressing daily and prn saturation Will need to monitor for incontinence as she is having loose stools and need diligent care as can worsen wound Apply foam dressing to R hip, change q3 days bilateral heel foam dressings APM/SOILA Mattress overlay. Reposition at least every 2hours or as tolerated. Off-load heels with Pillow. nutritional optimization will follow with recs thank you (2) Malnutrition Assessment & Plan: DAILY ESTIMATED NEEDS: Needs based on Critical care, wounds; 48.6kg 22- 30 kcals/kg 5752-1656 total kcals 1.25-2 g protein/kg 61-97 g total protein 25-30 mL/kg 3265-3503 total fluid mLs NUTRITION DIAGNOSIS: 1) Increased kcal and pro needs r/t wound healing AEB pt adm w/ multiple wounds, including full thickness sacral wounds, refer to WC eval. 2) Swallowing difficulty r/t respiratory status AEB pt is intubated, Peg dep, TF at low rate for elev residuals. CURRENT TF:Glucerna 1.2 @50-> now @20ml/hr ENTERAL NUTRITION RECOMMENDATIONS: VITAL AF 1.2 @ 45mL/hr x 24 hrs to provide 1080mL, 1296kcal, 81g pro, 876mL free H2O With continued elev residuals, rec TF change to VITAL 1.2 w/ goal rate of 45ml/ hr. - Start @15ml/hr until tolerated w/ no to little residuals. Advance 10ml/hr q4-6 hrs to goal rate TOLERATED. - Flush per . HOB over 30 degrees ADDITIONAL RECOMMENDATIONS: 1) Per SNF: 107 lbs, 60 inches 2) When pt is stable, see TF recs above. 3) Wound care: Add ARNALDO BID + Vit C 250mg BID -> Hold Arnaldo BID until TF is better tolerated w/ low to no residuals 4) Monitor lytes-> replete as needed 5) With continued elevated blood glucose, rec long acting insulin Monitor BG w/ active TF order (3) Failure to thrive in adult (4) Feeding by G-tube (5) Septic shock Assessment & Plan: labs noted exam as above wean vent as tolerated nutritional optimization trend labs abx as per ID will follow with recs will likely need trach soon as not weaning from vent thank you (6) Dehydration Ralph Roth May 12, 2019 15:48
--- NOTE | 2019-05-12 16:50 | Hematology/Onc Progress Note ---
Assessment/Plan Assessment/Plan # Anemia of chronic disease due to underlying chronic medical issues, multifactorial, in this case sepsis --> Anemia workup has been reviewed, no bleeding --> No evidence of hemolysis is noted, peripheral smear has been reviewed. --> Hgb goal >7. Transfuse prn. --> Epogen or iron at this time is not particularly indicated --> Medications have been reviewed --> low threshold for gi evaluation in case has occult + --> bone marrow biopsy is not indicated given the other more likely causes --> hgb trend 11.5-->7.8-->8.9 --> 9.4 # Thrombocytopenia - potential causes multifactorial, evaluate liver and viral etiologies to begin, also could be related to underlying medications patient has received. In this case with septic shock --> Hep panel and HIV ordered --> US abd to evaluate for cirrhosis and hsm ordered --> Peripheral smear ordered to evaluate for blasts /schistocytes --> abx and other meds have been reviewed --> ok for ppx if plt >50k w/ either heparin or lovenox --> Transfuse if Plt < 20k and fever, or if Plt < 10k without fever --> plt trend 164-->102-->104-->241 # Hypercalcemia --> started on ivf by renal --> Ca trend as needed --> pamidronate given calcitonin # Septic shock --> erta/aamikacin/vanc per id # Acute kidney injury --> per renal # Acute respiratory failure s/p vent --> per pulm # Dysphagia s/p peg # Schizophrenia # Dvt ppx heparins sq The timing of this note does not necessarily reflect the time of the patient was seen. Greatly appreciate consultation. Subjective Allergies: Coded Allergies: No Known Allergies (Unverified , 05/01/19) Subjective 05/03: remains on vent, counts reviewed with rn, on abx, no bleeding 05/11: icu, awake, nonverbal, failed to wean from vent 05/12: no events noted, overnight, dw rn in the am, no bleeding Objective Objective Current Medications Medications (Trade) Dose Ordered Sig/Vane Route PRN Reason Start Time Stop Time Status Last Admin Dose Admin Acetaminophen (Tylenol) 650 mg Q4H PRN NG fever 05/04/19 09:30 05/31/19 12:44 05/04/19 10:00 Calcitonin Otto (Miacalcin) 1 sprays DAILY NASAL 05/04/19 09:00 06/03/19 08:59 05/12/19 08:19 Chlorhexidine Gluconate (Shanice-Hex 2%) 1 applic DAILY@2000 TOPIC 05/01/19 20:00 05/31/19 19:59 05/11/19 21:09 Dextrose (Dextrose 50%) 25 ml Q30M PRN IV Hypoglycemia 05/02/19 06:30 06/01/19 06:29 Dextrose (Dextrose 50%) 50 ml Q30M PRN IV Hypoglycemia 05/02/19 06:30 06/01/19 06:29 Heparin Sodium (Porcine) (Heparin 5000 units/ml) 5,000 units EVERY 12 HOURS SUBQ 05/01/19 21:00 05/31/19 20:59 05/12/19 08:21 Insulin Aspart (NovoLOG) EVERY 6 HOURS SUBQ 05/02/19 07:30 06/01/19 07:29 05/12/19 12:13 Midodrine (Pro-Amatine) 5 mg THREE TIMES A DAY NG 05/06/19 13:00 06/04/19 12:59 05/12/19 13:21 Norepinephrine Bitartrate 4 mg/ Dextrose 254 ml @ 0 mls/hr Q24H IV 05/01/19 12:45 05/31/19 12:44 05/04/19 18:15 Ondansetron HCl (Zofran) 4 mg Q6H PRN IVP Nausea & Vomiting 05/01/19 12:45 05/31/19 12:44 Pantoprazole (Protonix) 40 mg Q12HR IV 05/01/19 21:00 06/01/19 08:59 05/12/19 08:19 Potassium Chloride (K-Dur) 20 meq DAILY NG 05/13/19 09:00 06/03/19 09:17 Risperidone (RisperDAL) 0.25 mg QHS PRN GT Agitation 05/02/19 07:30 06/01/19 07:29 Last 24 Hour Vital Signs Date Time Temp Pulse Resp B/P (MAP) Pulse Ox O2 Delivery O2 Flow Rate FiO2 05/12/19 16:00 Mechanical Ventilator 05/12/19 16:00 30 05/12/19 16:00 70 14 130/48 (75) 99 05/12/19 15:31 76 05/12/19 15:00 67 17 140/48 (78) 99 05/12/19 14:47 73 16 30 05/12/19 14:00 71 16 128/78 (95) 100 05/12/19 13:00 70 17 122/45 (70) 100 05/12/19 12:55 74 16 30 05/12/19 12:00 30 05/12/19 12:00 73 05/12/19 12:00 Mechanical Ventilator 05/12/19 12:00 98.6 70 19 133/60 (84) 100 05/12/19 11:00 72 17 146/53 (84) 98 05/12/19 10:29 64 13 30 05/12/19 10:00 66 13 131/50 (77) 100 05/12/19 09:00 69 23 129/52 (77) 100 05/12/19 08:53 30 05/12/19 08:52 100 05/12/19 08:49 63 05/12/19 08:00 98.8 59 12 112/39 (63) 100 05/12/19 08:00 30 05/12/19 08:00 Mechanical Ventilator 05/12/19 07:00 64 12 112/44 (66) 100 05/12/19 06:43 63 12 30 05/12/19 06:00 65 14 113/51 (71) 100 05/12/19 05:15 63 14 30 05/12/19 05:00 71 18 129/55 (79) 100 05/12/19 04:00 98.8 56 12 109/49 (69) 100 05/12/19 04:00 Mechanical Ventilator 05/12/19 04:00 69 05/12/19 04:00 30 05/12/19 03:00 58 12 131/56 (81) 100 05/12/19 02:39 59 12 30 05/12/19 02:00 57 12 116/48 (70) 100 05/12/19 01:03 60 12 30 05/12/19 01:00 98.8 61 19 143/59 (87) 100 05/12/19 01:00 67 12 123/51 (75) 100 05/12/19 00:00 30 05/12/19 00:00 98.8 61 19 143/59 (87) 100 05/12/19 00:00 65 05/12/19 00:00 Mechanical Ventilator 05/11/19 23:10 61 26 30 05/11/19 23:00 63 13 140/52 (81) 100 05/11/19 22:00 60 12 127/46 (73) 100 05/11/19 21:05 62 16 30 05/11/19 21:00 63 13 139/48 (78) 100 05/11/19 20:00 30 05/11/19 20:00 69 05/11/19 20:00 Mechanical Ventilator 05/11/19 20:00 99.0 61 12 123/44 (70) 99 05/11/19 19:19 64 18 30 05/11/19 19:00 68 14 139/58 (85) 100 05/11/19 18:00 63 14 118/42 (67) 99 05/11/19 17:21 66 15 30 05/11/19 17:00 99.4 64 25 126/97 (107) 100 05/11/19 16:00 Mechanical Ventilator 05/11/19 16:00 30 05/11/19 16:00 63 25 126/97 (107) 100 05/11/19 15:34 61 05/11/19 15:00 66 22 137/66 (89) 99 05/11/19 15:00 64 24 30 05/11/19 14:00 70 14 122/39 (66) 99 05/11/19 13:26 69 14 30 05/11/19 13:00 98.8 68 13 122/55 (77) 99 05/11/19 12:00 65 12 121/40 (67) 99 05/11/19 12:00 Mechanical Ventilator 05/11/19 11:54 66 05/11/19 11:00 68 24 126/43 (70) 99 05/11/19 10:39 30 05/11/19 10:30 64 21 30 05/11/19 10:16 63 27 100 Mechanical Ventilator 30 05/11/19 10:00 70 27 123/55 (77) 99 05/11/19 09:00 66 16 120/46 (70) 99 05/11/19 08:46 30 05/11/19 08:38 73 29 30 05/11/19 08:38 100 05/11/19 08:36 30 05/11/19 08:00 99.1 65 17 109/45 (66) 100 05/11/19 08:00 Mechanical Ventilator 05/11/19 08:00 30 05/11/19 07:58 65 05/11/19 07:28 65 16 30 05/11/19 07:00 63 16 106/41 (62) 100 05/11/19 06:00 68 18 106/47 (66) 100 05/11/19 05:15 64 16 30 05/11/19 05:00 62 16 109/40 (63) 100 05/11/19 04:00 65 05/11/19 04:00 98.4 66 17 114/45 (68) 100 05/11/19 04:00 30 05/11/19 04:00 Mechanical Ventilator 05/11/19 03:09 59 16 30 05/11/19 03:00 61 16 118/41 (66) 100 05/11/19 02:00 60 16 106/39 (61) 99 05/11/19 01:25 62 17 30 05/11/19 01:00 63 16 110/49 (69) 99 05/11/19 00:00 65 05/11/19 00:00 98.5 64 16 105/39 (61) 100 05/11/19 00:00 Mechanical Ventilator 05/11/19 00:00 64 16 105/39 (61) 100 05/10/19 23:18 65 16 30 05/10/19 23:00 63 16 107/39 (61) 99 05/10/19 22:00 65 16 105/40 (61) 99 05/10/19 21:00 70 15 116/34 (61) 99 05/10/19 21:00 66 15 30 05/10/19 20:00 30 05/10/19 20:00 Mechanical Ventilator 05/10/19 20:00 68 05/10/19 20:00 98.5 76 18 115/39 (64) 98 05/10/19 19:10 69 15 30 05/10/19 19:00 69 16 112/41 (64) 99 05/10/19 18:00 75 16 115/43 (67) 100 05/10/19 17:00 66 16 103/41 (61) 99 Intake and Output 05/11/19 05/12/19 19:00 07:00 Intake Total 805 ml 650 ml Output Total 1080 ml 790 ml Balance -275 ml -140 ml IV Total 55 ml Tube Feeding 600 ml 600 ml Other 150 ml 50 ml Output Urine Total 1010 ml 790 ml Stool Total 70 ml Labs Test 05/10/19 04:20 05/10/19 08:51 05/11/19 04:45 05/11/19 09:07 White Blood Count 7.6 K/UL (4.8-10.8) 7.3 K/UL (4.8-10.8) Red Blood Count 3.04 M/UL (4.20-5.40) 3.04 M/UL (4.20-5.40) Hemoglobin 8.9 G/DL (12.0-16.0) 8.9 G/DL (12.0-16.0) Hematocrit 27.2 % (37.0-47.0) 27.2 % (37.0-47.0) Mean Corpuscular Volume 89 FL (80-99) 90 FL (80-99) Mean Corpuscular Hemoglobin 29.4 PG (27.0-31.0) 29.4 PG (27.0-31.0) Mean Corpuscular Hemoglobin Concent 32.8 G/DL (32.0-36.0) 32.9 G/DL (32.0-36.0) Red Cell Distribution Width 16.0 % (11.6-14.8) 15.8 % (11.6-14.8) Platelet Count 224 K/UL (150-450) 241 K/UL (150-450) Mean Platelet Volume 5.6 FL (6.5-10.1) 5.1 FL (6.5-10.1) Neutrophils (%) (Auto) 71.7 % (45.0-75.0) 72.8 % (45.0-75.0) Lymphocytes (%) (Auto) 21.5 % (20.0-45.0) 20.8 % (20.0-45.0) Monocytes (%) (Auto) 3.5 % (1.0-10.0) 3.7 % (1.0-10.0) Eosinophils (%) (Auto) 2.5 % (0.0-3.0) 1.8 % (0.0-3.0) Basophils (%) (Auto) 0.8 % (0.0-2.0) 0.9 % (0.0-2.0) Sodium Level 136 MMOL/L (136-145) 137 MMOL/L (136-145) Potassium Level 4.7 MMOL/L (3.5-5.1) 4.6 MMOL/L (3.5-5.1) Chloride Level 109 MMOL/L (98-107) 110 MMOL/L (98-107) Carbon Dioxide Level 19 MMOL/L (21-32) 19 MMOL/L (21-32) Anion Gap 8 mmol/L (5-15) 8 mmol/L (5-15) Blood Urea Nitrogen 34 mg/dL (7-18) 35 mg/dL (7-18) Creatinine 1.2 MG/DL (0.55-1.30) 1.1 MG/DL (0.55-1.30) Estimat Glomerular Filtration Rate mL/min (>60) mL/min (>60) Glucose Level 140 MG/DL (74-106) 140 MG/DL (74-106) Calcium Level 9.1 MG/DL (8.5-10.1) 9.0 MG/DL (8.5-10.1) Phosphorus Level 2.2 MG/DL (2.5-4.9) 2.8 MG/DL (2.5-4.9) Magnesium Level 2.2 MG/DL (1.8-2.4) 2.0 MG/DL (1.8-2.4) Total Bilirubin 0.3 MG/DL (0.2-1.0) 0.2 MG/DL (0.2-1.0) Aspartate Amino Transf (AST/SGOT) 41 U/L (15-37) 34 U/L (15-37) Alanine Aminotransferase (ALT/SGPT) 57 U/L (12-78) 53 U/L (12-78) Alkaline Phosphatase 305 U/L (46-116) 305 U/L (46-116) Total Protein 4.1 G/DL (6.4-8.2) 4.3 G/DL (6.4-8.2) Albumin 1.4 G/DL (3.4-5.0) 1.4 G/DL (3.4-5.0) Globulin 2.7 g/dL 2.9 g/dL Albumin/Globulin Ratio 0.5 (1.0-2.7) 0.5 (1.0-2.7) Arterial Blood pH 7.380 (7.350-7.450) 7.510 (7.350-7.450) Arterial Blood Partial Pressure CO2 28.4 mmHg (35.0-45.0) 20.0 mmHg (35.0-45.0) Arterial Blood Partial Pressure O2 130.8 mmHg (75.0-100.0) 134.7 mmHg (75.0-100.0) Arterial Blood HCO3 16.4 mmol/L (22.0-26.0) 15.6 mmol/L (22.0-26.0) Arterial Blood Oxygen Saturation 98.3 % (95-100) 98.1 % (95-100) Arterial Blood Base Excess -7.6 (-2-2) -5.9 (-2-2) Silas Test Positive Positive Test 05/12/19 05:22 White Blood Count 8.4 K/UL (4.8-10.8) Red Blood Count 3.28 M/UL (4.20-5.40) Hemoglobin 9.4 G/DL (12.0-16.0) Hematocrit 29.4 % (37.0-47.0) Mean Corpuscular Volume 90 FL (80-99) Mean Corpuscular Hemoglobin 28.5 PG (27.0-31.0) Mean Corpuscular Hemoglobin Concent 31.9 G/DL (32.0-36.0) Red Cell Distribution Width 16.1 % (11.6-14.8) Platelet Count 239 K/UL (150-450) Mean Platelet Volume 5.4 FL (6.5-10.1) Neutrophils (%) (Auto) 64.1 % (45.0-75.0) Lymphocytes (%) (Auto) 27.6 % (20.0-45.0) Monocytes (%) (Auto) 4.8 % (1.0-10.0) Eosinophils (%) (Auto) 2.6 % (0.0-3.0) Basophils (%) (Auto) 1.0 % (0.0-2.0) Sodium Level 136 MMOL/L (136-145) Potassium Level 4.9 MMOL/L (3.5-5.1) Chloride Level 110 MMOL/L (98-107) Carbon Dioxide Level 21 MMOL/L (21-32) Anion Gap 5 mmol/L (5-15) Blood Urea Nitrogen 36 mg/dL (7-18) Creatinine 1.1 MG/DL (0.55-1.30) Estimat Glomerular Filtration Rate mL/min (>60) Glucose Level 125 MG/DL (74-106) Calcium Level 9.7 MG/DL (8.5-10.1) Height (Feet): 5 Height (Inches): 7.00 Weight (Pounds): 120 Objective Gen: Nad Pulm: is vent++ CV: ++ tachy Abd: soft, nt, ++ g tube Ext: 1+ edema noted Bruce Coombs MD May 12, 2019 16:50
--- NOTE | 2019-05-12 17:00 | NUR ---
NURSE NOTES: Small amount of clear/white thin secretion note from mouth. Suctioned as needed. Pt is comfortably sleeping in bed.
--- NOTE | 2019-05-12 19:33 | NUR ---
HAND-OFF: Report given to MONA Gaona.
[2019-05-12] MEDS: Dyna-Hex 2% Top Sol 2oz TOPIC SCH (20:07)
--- NOTE | 2019-05-12 20:15 | NUR ---
HAND-OFF: Report given to Patricia DUNN using SBAR.
--- NOTE | 2019-05-12 20:15 | NUR ---
NURSE NOTES: Received patient from MONA Gaona. patient opens eyes spontaneously, unable to track and intermittently follow commands. Orally intubated, ETT 7.5, 22cm at lip line. AC 16, TV 500, FIO2 30%, PEEP 5. O2 sat 100%. No distress noted. G-tube intact, dressing intact, HOB kept elevated 30-45degrees. Hilario cath intact, patent, draining yellow urine by gravity. Left upper arm PICC line intact, TKO. Patient on P200 mattress. Wound dressings intact. Bed in lowest position. Side rails upx3.
[2019-05-13] VITALS (25 sets, daily range): BP systolic 86–125; BP diastolic 32–80
[2019-05-13] MEDS: NovoLOG Insulin Flexpen SUBQ SCH ×4 (00:09→18:05)
[2019-05-13 06:04] LABS: EOSINOPHILS % (AUTO) 1.6 % (0.0-3.0); HEMATOCRIT 29.5 % (37.0-47.0); HEMOGLOBIN 9.4 G/DL (12.0-16.0); LYMPHOCYTES % (AUTO) 26.1 % (20.0-45.0); MEAN CORPUSCULAR VOLUME 92 FL (80-99); NEUTROPHILS % (AUTO) 66.2 % (45.0-75.0); PLATELET COUNT 208 K/UL (150-450); RED BLOOD COUNT 3.22 M/UL (4.20-5.40); RED CELL DISTRIBUTION WIDTH 16.5 % (11.6-14.8)
--- NOTE | 2019-05-13 07:14 | NUR ---
RESPIRATORY NOTE: Received pt on ETT 7.5@22cm lip line, secured with anchor fast, with current vent settings: AC 16-500-30%- peep 5. Pt opens eyes but unable to follow commands, responds to stimuli. Oral care done, bite block in place to prevent tube biting. RN Fred aware. No SOB or resp distress noted at this time. Alarms are set and audible, vent is plugged into the red outlet, ambu bag is at bedside. Vent circuits and suction tubing are secured and out of the way. Will continue to monitor pt.
--- NOTE | 2019-05-13 07:23 | NUR ---
HAND-OFF: Report given to MONA Ibarra. Patient stable at Hand-off.
--- NOTE | 2019-05-13 07:27 | NUR ---
NURSE NOTES: Received report from MONA Gomez. Patient is flat affect and disoriented. ETT 7.5/22cm at lip line with vent setting AC 12, VT 500, Peep 5 and FiO2 30%. Gtube intact and running with Glucerna 1.2 @50ml/hr. Hilario intact and draining with yellow color urine. Rectal tube intact and clean with new bag. Left upper arm PICC intact and clean with TKO. RT is at the bedside. kept dry, clean, comfortable and HOB>30. Will continue plan of care.
[2019-05-13 07:35] LABS: ALANINE AMINOTRANSFERASE 36 U/L (12-78); ALBUMIN 1.5 G/DL (3.4-5.0); ALBUMIN/GLOBULIN RATIO 0.5 (1.0-2.7); ALKALINE PHOSPHATASE 274 U/L (46-116); ANION GAP 8 mmol/L (5-15); ASPARTATE AMINO TRANSFERASE 24 U/L (15-37); BILIRUBIN,TOTAL 0.2 MG/DL (0.2-1.0); BLOOD UREA NITROGEN 37 mg/dL (7-18); CALCIUM 9.5 MG/DL (8.5-10.1); CARBON DIOXIDE 21 MMOL/L (21-32); CHLORIDE 116 MMOL/L (98-107); CREATININE 0.8 MG/DL (0.55-1.30); PHOSPHORUS 2.4 MG/DL (2.5-4.9); POTASSIUM 5.4 MMOL/L (3.5-5.1); SODIUM 144 MMOL/L (136-145)
--- NOTE | 2019-05-13 08:17 | NUR ---
NURSE NOTES: Seen by OZZIE Remy and assessed patient, with new orders.
[2019-05-13] MEDS: Pantoprazole Inj IV SCH ×2 (08:23→20:42)
[2019-05-13] MEDS: Heparin 5000 units/ml inj SUBQ SCH ×2 (08:24→20:43)
--- NOTE | 2019-05-13 08:44 | NUR ---
RESPIRATORY NOTE: Placed pt on CPAP PS 8 30%FiO2- peep 5, pt went straight to Apnea mode. Placed pt back on AC mode with the same settings. MONA Ibarra made aware. Will continue to monitor pt.
--- NOTE | 2019-05-13 08:45 | NUR ---
NURSE NOTES: Repositioned patient and oral care provided.
--- NOTE | 2019-05-13 10:00 | NUR ---
NURSE NOTES: Seen by Dr. Chong.
--- NOTE | 2019-05-13 10:17 | General Progress Note ---
Assessment/Plan Problem List: (1) Acute respiratory failure ICD Codes: J96.00 - Acute respiratory failure, unspecified whether with hypoxia or hypercapnia SNOMED: 46397435 (2) Septic shock ICD Codes: A41.9 - Sepsis, unspecified organism; R65.21 - Severe sepsis with septic shock SNOMED: 76614211, 1031172 (3) Diabetes mellitus ICD Codes: E11.9 - Type 2 diabetes mellitus without complications SNOMED: 98907289 (4) Hypertension ICD Codes: I10 - Essential (primary) hypertension SNOMED: 62859528 (5) COPD (chronic obstructive pulmonary disease) ICD Codes: J44.9 - Chronic obstructive pulmonary disease, unspecified SNOMED: 83737447 (6) Anemia ICD Codes: D64.9 - Anemia, unspecified SNOMED: 790343628 (7) Schizophrenia ICD Codes: F20.9 - Schizophrenia, unspecified SNOMED: 96510320 Status: unchanged Assessment/Plan: vent abx bp bs control cbc bmp am ltach eval Subjective Constitutional: Reports: weakness Allergies: Coded Allergies: No Known Allergies (Unverified , 05/01/19) All Systems: reviewed and negative except above Subjective intubated sedated in icu Objective Last 24 Hour Vital Signs Date Time Temp Pulse Resp B/P (MAP) Pulse Ox O2 Delivery O2 Flow Rate FiO2 05/13/19 09:45 62 12 114/32 (59) 100 05/13/19 09:00 61 12 86/38 (54) 100 05/13/19 08:44 100 05/13/19 08:44 61 12 30 05/13/19 08:00 Mechanical Ventilator 05/13/19 08:00 98.0 79 16 125/45 (71) 100 05/13/19 08:00 30 05/13/19 07:14 60 12 Mechanical Ventilator 30 05/13/19 07:00 96 24 105/80 (88) 96 05/13/19 06:00 63 16 99/33 (55) 100 05/13/19 05:00 61 12 96/32 (53) 100 05/13/19 04:52 65 13 Mechanical Ventilator 30 05/13/19 04:00 Mechanical Ventilator 05/13/19 04:00 98.2 70 13 101/48 (65) 100 05/13/19 04:00 30 05/13/19 04:00 68 05/13/19 03:21 68 14 Mechanical Ventilator 30 05/13/19 03:00 68 13 109/44 (65) 100 05/13/19 02:00 67 12 110/51 (70) 100 05/13/19 01:05 61 12 Mechanical Ventilator 30 05/13/19 01:00 66 12 113/43 (66) 100 05/13/19 00:00 66 05/13/19 00:00 Mechanical Ventilator 05/13/19 00:00 99.3 67 13 108/44 (65) 100 05/12/19 23:00 68 13 119/46 (70) 100 05/12/19 22:49 64 12 Mechanical Ventilator 30 05/12/19 22:00 66 12 118/45 (69) 100 05/12/19 21:00 68 13 114/46 (68) 100 05/12/19 20:49 67 13 Mechanical Ventilator 30 05/12/19 20:00 99.2 67 13 125/45 (71) 100 05/12/19 20:00 Mechanical Ventilator 05/12/19 20:00 65 05/12/19 20:00 30 05/12/19 19:00 72 15 136/56 (82) 100 05/12/19 18:36 69 14 Mechanical Ventilator 30 05/12/19 18:00 71 14 131/52 (78) 100 05/12/19 17:02 68 13 30 05/12/19 17:00 99.0 68 14 128/45 (72) 99 05/12/19 16:00 Mechanical Ventilator 05/12/19 16:00 30 05/12/19 16:00 70 14 130/48 (75) 99 05/12/19 15:31 76 05/12/19 15:00 67 17 140/48 (78) 99 05/12/19 14:47 73 16 30 05/12/19 14:00 71 16 128/78 (95) 100 05/12/19 13:00 70 17 122/45 (70) 100 05/12/19 12:55 74 16 30 05/12/19 12:00 30 05/12/19 12:00 73 05/12/19 12:00 Mechanical Ventilator 05/12/19 12:00 98.6 70 19 133/60 (84) 100 05/12/19 11:00 72 17 146/53 (84) 98 05/12/19 10:29 64 13 30 Intake and Output 05/12/19 05/13/19 18:59 06:59 Intake Total 1300.0 ml 600 ml Output Total 1175 ml 840 ml Balance 125.0 ml -240 ml IV Total 550.0 ml Tube Feeding 600 ml 600 ml Other 150 ml Output Urine Total 1075 ml 690 ml Stool Total 100 ml 150 ml # Bowel Movements 2 Laboratory Tests 05/13/19 05:00: White Blood Count 7.0, Red Blood Count 3.22L, Hemoglobin 9.4L, Hematocrit 29.5L , Mean Corpuscular Volume 92, Mean Corpuscular Hemoglobin 29.1, Mean Corpuscular Hemoglobin Concent 31.7L, Red Cell Distribution Width 16.5H, Platelet Count 208, Mean Platelet Volume 6.3L, Neutrophils (%) (Auto) 66.2, Lymphocytes (%) (Auto) 26.1, Monocytes (%) (Auto) 5.0, Eosinophils (%) (Auto) 1.6, Basophils (%) (Auto) 1.0, Sodium Level 144, Potassium Level 5.4H, Chloride Level 116H, Carbon Dioxide Level 21, Anion Gap 8, Blood Urea Nitrogen 37H, Creatinine 0.8, Estimat Glomerular Filtration Rate , Glucose Level 122H, Uric Acid 4.0, Calcium Level 9.5, Phosphorus Level 2.4L, Magnesium Level 1.7L, Total Bilirubin 0.2, Aspartate Amino Transf (AST/SGOT) 24, Alanine Aminotransferase ( ALT/SGPT) 36, Alkaline Phosphatase 274H, Total Protein 4.4L, Albumin 1.5L, Globulin 2.9, Albumin/Globulin Ratio 0.5L Height (Feet): 5 Height (Inches): 7.00 Weight (Pounds): 122 General Appearance: lethargic EENT: normal ENT inspection Neck: normal alignment Cardiovascular: normal peripheral pulses, normal rate, regular rhythm Respiratory/Chest: chest wall non-tender, lungs clear, normal breath sounds Abdomen: normal bowel sounds, non tender, soft Extremities: normal inspection Edema: no edema noted Arm (L), no edema noted Arm (R), no edema noted Leg (L), no edema noted Leg (R), no edema noted Pedal (L), no edema noted Pedal (R), no edema noted Generalized Neurologic: motor weakness Skin: normal pigmentation, warm/dry Cosme Chong DO May 13, 2019 10:17
--- NOTE | 2019-05-13 10:28 | Pulmonolgy Critical Care Note ---
Critical Care - Asmt/Plan Assessment/Plan: ASSESSMENT Acute hypoxemic respiratory failure requiring intubation Septic shock Pneumonia with MRSA and Elmore here UTI with Klebsiella MDR Acute kidney injury resolved Dysphagia feeding by G-tube Hyponatremia Diabetes mellitus COPD History of hypertension Anemia of chronic disease Hypercalcemia-resolved Functional quadriplegia Protein calorie malnutrition Major depressive disorder PLAN OF CARE ICU status off pressors, on midodrine, BP stable closely monitor hemodynamic status to keep mean aBP > 65 vent support ; pulmonary toilet fup with ABG and CXR wean as tolerated when ready abx as per ID -completed DVT GI prophylaxis ODALYS resolved monitor renal parameters , lytes, correct electrolytes as needed , avoid nephrotoxic DC KCL, further e/lytes correction as per nephro data entry supervisor on board s/p Aredia x2 ; on calcitonin Ca stabilized BS management with SSI monitor H&H with goal to keep hemoglobin above 7, s/p 1 u PRBC stool OB negative case discussed and evaluated by supervising physician Critical Care - Objective Last 24 Hour Vital Signs Date Time Temp Pulse Resp B/P (MAP) Pulse Ox O2 Delivery O2 Flow Rate FiO2 05/13/19 09:45 62 12 114/32 (59) 100 05/13/19 09:00 61 12 86/38 (54) 100 05/13/19 08:44 100 05/13/19 08:44 61 12 30 05/13/19 08:00 Mechanical Ventilator 05/13/19 08:00 98.0 79 16 125/45 (71) 100 05/13/19 08:00 30 05/13/19 07:14 60 12 Mechanical Ventilator 30 05/13/19 07:00 96 24 105/80 (88) 96 05/13/19 06:00 63 16 99/33 (55) 100 05/13/19 05:00 61 12 96/32 (53) 100 05/13/19 04:52 65 13 Mechanical Ventilator 30 05/13/19 04:00 Mechanical Ventilator 05/13/19 04:00 98.2 70 13 101/48 (65) 100 05/13/19 04:00 30 05/13/19 04:00 68 05/13/19 03:21 68 14 Mechanical Ventilator 30 05/13/19 03:00 68 13 109/44 (65) 100 05/13/19 02:00 67 12 110/51 (70) 100 05/13/19 01:05 61 12 Mechanical Ventilator 30 05/13/19 01:00 66 12 113/43 (66) 100 05/13/19 00:00 66 05/13/19 00:00 Mechanical Ventilator 05/13/19 00:00 99.3 67 13 108/44 (65) 100 05/12/19 23:00 68 13 119/46 (70) 100 05/12/19 22:49 64 12 Mechanical Ventilator 30 05/12/19 22:00 66 12 118/45 (69) 100 05/12/19 21:00 68 13 114/46 (68) 100 05/12/19 20:49 67 13 Mechanical Ventilator 30 05/12/19 20:00 99.2 67 13 125/45 (71) 100 05/12/19 20:00 Mechanical Ventilator 05/12/19 20:00 65 05/12/19 20:00 30 05/12/19 19:00 72 15 136/56 (82) 100 05/12/19 18:36 69 14 Mechanical Ventilator 30 05/12/19 18:00 71 14 131/52 (78) 100 05/12/19 17:02 68 13 30 05/12/19 17:00 99.0 68 14 128/45 (72) 99 05/12/19 16:00 Mechanical Ventilator 05/12/19 16:00 30 05/12/19 16:00 70 14 130/48 (75) 99 05/12/19 15:31 76 05/12/19 15:00 67 17 140/48 (78) 99 05/12/19 14:47 73 16 30 05/12/19 14:00 71 16 128/78 (95) 100 05/12/19 13:00 70 17 122/45 (70) 100 05/12/19 12:55 74 16 30 05/12/19 12:00 30 05/12/19 12:00 73 05/12/19 12:00 Mechanical Ventilator 05/12/19 12:00 98.6 70 19 133/60 (84) 100 05/12/19 11:00 72 17 146/53 (84) 98 05/12/19 10:29 64 13 30 Status: sedated, other - on vent Condition: critical HEENT: atraumatic, other - OP with ET intact, OP tube with TF Lungs: clear Heart: HR/BP stable, regular Abdomen: soft, non-tender Extremities: no C/C/E Accucheck: 132 Critical Care - Subjective Interval Events: off pressors remains intubated on weaning protocol no fevers, no leukocytosis completed abx K-5.4, Mg-1.7, P-2.4 Condition: critical IV Access: PICC - LUE intact EKG Rhythm: Sinus Rhythm FI02: 30 Vent Support Breath Rate: 12 Vent Support Mode: AC Vent Tidal Volume: 500 Sputum Amount: Small PEEP: 5.0 PIP: 24 Tube Feeding Amount: 50 I&O: Intake and Output 05/12/19 05/13/19 18:59 06:59 Intake Total 1300.0 ml 600 ml Output Total 1175 ml 840 ml Balance 125.0 ml -240 ml IV Total 550.0 ml Tube Feeding 600 ml 600 ml Other 150 ml Output Urine Total 1075 ml 690 ml Stool Total 100 ml 150 ml # Bowel Movements 2 CXR: CXR 05/11 -Suspected mild pulmonary vascular congestion. Accounting for technical differences there may be little to no change. ET-Tube: 7.5 ET Position: 22 Sandrita Avila NP May 13, 2019 10:28
[2019-05-13] MEDS ORDERED: Albuterol/Ipratropium 3ml neb HHN PRN (10:30)
--- NOTE | 2019-05-13 11:12 | NUR ---
NURSE NOTES: Seen by Dr. Ho with new orders.
--- NOTE | 2019-05-13 11:37 | Nephrology Progress Note ---
Assessment/Plan Problem List: (1) Hypercalcemia Assessment: improving (2) Septic shock (3) Acute kidney injury (4) Acute respiratory failure (5) Dehydration (6) Anemia Assessment Acute renal failure Dehydration / HyperNatremia / HyperCalcemia Septic Shock Respiratory failure / COPD NSTEMI DM PEG Schizophrenia Anemia Plan stop KCl Aredia 90 mg IV and Nasal Calcitonin repeat Aredia 05/12 correct lytes prn Lasix trial Midodrine ? weaning vs Trach IV fluid change to 1/2 NS K and Phos and Mag supplement as needed monitor renal parameters and Calcium urine studies anemia au avoid Nephrotoxics Subjective ROS Limited/Unobtainable: Yes Objective Objective Last 24 Hour Vital Signs Date Time Temp Pulse Resp B/P (MAP) Pulse Ox O2 Delivery O2 Flow Rate FiO2 05/13/19 11:09 67 12 30 05/13/19 09:45 62 12 114/32 (59) 100 05/13/19 09:00 61 12 86/38 (54) 100 05/13/19 08:44 100 05/13/19 08:44 61 12 30 05/13/19 08:00 Mechanical Ventilator 05/13/19 08:00 64 05/13/19 08:00 98.0 79 16 125/45 (71) 100 05/13/19 08:00 30 05/13/19 07:14 60 12 Mechanical Ventilator 30 05/13/19 07:00 96 24 105/80 (88) 96 05/13/19 06:00 63 16 99/33 (55) 100 05/13/19 05:00 61 12 96/32 (53) 100 05/13/19 04:52 65 13 Mechanical Ventilator 30 05/13/19 04:00 Mechanical Ventilator 05/13/19 04:00 98.2 70 13 101/48 (65) 100 05/13/19 04:00 30 05/13/19 04:00 68 05/13/19 03:21 68 14 Mechanical Ventilator 30 05/13/19 03:00 68 13 109/44 (65) 100 05/13/19 02:00 67 12 110/51 (70) 100 05/13/19 01:05 61 12 Mechanical Ventilator 30 05/13/19 01:00 66 12 113/43 (66) 100 05/13/19 00:00 66 05/13/19 00:00 Mechanical Ventilator 05/13/19 00:00 99.3 67 13 108/44 (65) 100 05/12/19 23:00 68 13 119/46 (70) 100 05/12/19 22:49 64 12 Mechanical Ventilator 30 05/12/19 22:00 66 12 118/45 (69) 100 05/12/19 21:00 68 13 114/46 (68) 100 05/12/19 20:49 67 13 Mechanical Ventilator 30 05/12/19 20:00 99.2 67 13 125/45 (71) 100 05/12/19 20:00 Mechanical Ventilator 05/12/19 20:00 65 05/12/19 20:00 30 05/12/19 19:00 72 15 136/56 (82) 100 05/12/19 18:36 69 14 Mechanical Ventilator 30 05/12/19 18:00 71 14 131/52 (78) 100 05/12/19 17:02 68 13 30 05/12/19 17:00 99.0 68 14 128/45 (72) 99 05/12/19 16:00 Mechanical Ventilator 05/12/19 16:00 30 05/12/19 16:00 70 14 130/48 (75) 99 05/12/19 15:31 76 05/12/19 15:00 67 17 140/48 (78) 99 05/12/19 14:47 73 16 30 05/12/19 14:00 71 16 128/78 (95) 100 05/12/19 13:00 70 17 122/45 (70) 100 05/12/19 12:55 74 16 30 05/12/19 12:00 30 05/12/19 12:00 73 05/12/19 12:00 Mechanical Ventilator 05/12/19 12:00 98.6 70 19 133/60 (84) 100 Intake and Output 05/12/19 05/13/19 18:59 06:59 Intake Total 1300.0 ml 600 ml Output Total 1175 ml 840 ml Balance 125.0 ml -240 ml IV Total 550.0 ml Tube Feeding 600 ml 600 ml Other 150 ml Output Urine Total 1075 ml 690 ml Stool Total 100 ml 150 ml # Bowel Movements 2 Laboratory Tests 05/13/19 05:00: White Blood Count 7.0, Red Blood Count 3.22L, Hemoglobin 9.4L, Hematocrit 29.5L , Mean Corpuscular Volume 92, Mean Corpuscular Hemoglobin 29.1, Mean Corpuscular Hemoglobin Concent 31.7L, Red Cell Distribution Width 16.5H, Platelet Count 208, Mean Platelet Volume 6.3L, Neutrophils (%) (Auto) 66.2, Lymphocytes (%) (Auto) 26.1, Monocytes (%) (Auto) 5.0, Eosinophils (%) (Auto) 1.6, Basophils (%) (Auto) 1.0, Sodium Level 144, Potassium Level 5.4H, Chloride Level 116H, Carbon Dioxide Level 21, Anion Gap 8, Blood Urea Nitrogen 37H, Creatinine 0.8, Estimat Glomerular Filtration Rate , Glucose Level 122H, Uric Acid 4.0, Calcium Level 9.5, Phosphorus Level 2.4L, Magnesium Level 1.7L, Total Bilirubin 0.2, Aspartate Amino Transf (AST/SGOT) 24, Alanine Aminotransferase ( ALT/SGPT) 36, Alkaline Phosphatase 274H, Total Protein 4.4L, Albumin 1.5L, Globulin 2.9, Albumin/Globulin Ratio 0.5L Height (Feet): 5 Height (Inches): 7.00 Weight (Pounds): 122 General Appearance: no apparent distress EENT: other - vented Respiratory/Chest: decreased breath sounds Abdomen: distended Objective no change Fox Ho MD May 13, 2019 11:37
[2019-05-13] MEDS ORDERED: Sodium Phosphate 15 MM in NS 275 ML IVPB ONE (12:00)
--- NOTE | 2019-05-13 12:02 | NUR ---
NURSE NOTES: Repositioned patient and oral care provided.
--- NOTE | 2019-05-13 13:25 | General Progress Note ---
Assessment/Plan Status: unchanged Assessment/Plan: Patient with multiple medical issues, currently intubated. Continue therahoney. Continue to offload. Continue nutritional optimization. No surgical intervention warranted at this time. Thank you. Subjective Date patient seen: May 13, 2019 Time patient seen: 13:23 Allergies: Coded Allergies: No Known Allergies (Unverified , 05/01/19) Subjective Follow up on patient with sacral pressure ulcer. She is still intubated. Started therahoney on the ulcer at last visit. Objective Last 24 Hour Vital Signs Date Time Temp Pulse Resp B/P (MAP) Pulse Ox O2 Delivery O2 Flow Rate FiO2 05/13/19 13:00 79 14 105/40 (61) 100 05/13/19 12:46 76 14 30 05/13/19 12:00 97.9 63 13 91/34 (53) 100 05/13/19 11:09 67 12 30 05/13/19 11:00 67 13 97/33 (54) 100 05/13/19 10:00 63 13 103/35 (57) 100 05/13/19 09:45 62 12 114/32 (59) 100 05/13/19 09:00 61 12 86/38 (54) 100 05/13/19 08:44 100 05/13/19 08:44 61 12 30 05/13/19 08:00 Mechanical Ventilator 05/13/19 08:00 64 05/13/19 08:00 98.0 79 16 125/45 (71) 100 05/13/19 08:00 30 05/13/19 07:14 60 12 Mechanical Ventilator 30 05/13/19 07:00 96 24 105/80 (88) 96 05/13/19 06:00 63 16 99/33 (55) 100 05/13/19 05:00 61 12 96/32 (53) 100 05/13/19 04:52 65 13 Mechanical Ventilator 30 05/13/19 04:00 Mechanical Ventilator 05/13/19 04:00 98.2 70 13 101/48 (65) 100 05/13/19 04:00 30 05/13/19 04:00 68 05/13/19 03:21 68 14 Mechanical Ventilator 30 05/13/19 03:00 68 13 109/44 (65) 100 05/13/19 02:00 67 12 110/51 (70) 100 05/13/19 01:05 61 12 Mechanical Ventilator 30 05/13/19 01:00 66 12 113/43 (66) 100 05/13/19 00:00 66 05/13/19 00:00 Mechanical Ventilator 05/13/19 00:00 99.3 67 13 108/44 (65) 100 05/12/19 23:00 68 13 119/46 (70) 100 05/12/19 22:49 64 12 Mechanical Ventilator 30 05/12/19 22:00 66 12 118/45 (69) 100 05/12/19 21:00 68 13 114/46 (68) 100 05/12/19 20:49 67 13 Mechanical Ventilator 30 05/12/19 20:00 99.2 67 13 125/45 (71) 100 05/12/19 20:00 Mechanical Ventilator 05/12/19 20:00 65 05/12/19 20:00 30 05/12/19 19:00 72 15 136/56 (82) 100 05/12/19 18:36 69 14 Mechanical Ventilator 30 05/12/19 18:00 71 14 131/52 (78) 100 05/12/19 17:02 68 13 30 05/12/19 17:00 99.0 68 14 128/45 (72) 99 05/12/19 16:00 Mechanical Ventilator 05/12/19 16:00 30 05/12/19 16:00 70 14 130/48 (75) 99 05/12/19 15:31 76 05/12/19 15:00 67 17 140/48 (78) 99 05/12/19 14:47 73 16 30 05/12/19 14:00 71 16 128/78 (95) 100 Intake and Output 05/12/19 05/13/19 18:59 06:59 Intake Total 1300.0 ml 600 ml Output Total 1175 ml 840 ml Balance 125.0 ml -240 ml IV Total 550.0 ml Tube Feeding 600 ml 600 ml Other 150 ml Output Urine Total 1075 ml 690 ml Stool Total 100 ml 150 ml # Bowel Movements 2 Laboratory Tests 05/13/19 05:00: White Blood Count 7.0, Red Blood Count 3.22L, Hemoglobin 9.4L, Hematocrit 29.5L , Mean Corpuscular Volume 92, Mean Corpuscular Hemoglobin 29.1, Mean Corpuscular Hemoglobin Concent 31.7L, Red Cell Distribution Width 16.5H, Platelet Count 208, Mean Platelet Volume 6.3L, Neutrophils (%) (Auto) 66.2, Lymphocytes (%) (Auto) 26.1, Monocytes (%) (Auto) 5.0, Eosinophils (%) (Auto) 1.6, Basophils (%) (Auto) 1.0, Sodium Level 144, Potassium Level 5.4H, Chloride Level 116H, Carbon Dioxide Level 21, Anion Gap 8, Blood Urea Nitrogen 37H, Creatinine 0.8, Estimat Glomerular Filtration Rate , Glucose Level 122H, Uric Acid 4.0, Calcium Level 9.5, Phosphorus Level 2.4L, Magnesium Level 1.7L, Total Bilirubin 0.2, Aspartate Amino Transf (AST/SGOT) 24, Alanine Aminotransferase ( ALT/SGPT) 36, Alkaline Phosphatase 274H, Total Protein 4.4L, Albumin 1.5L, Globulin 2.9, Albumin/Globulin Ratio 0.5L Height (Feet): 5 Height (Inches): 7.00 Weight (Pounds): 122 General Appearance: no apparent distress Respiratory/Chest: no respiratory distress Skin: other - Ulcer of sacrum with loosening slough at the base. Eschar as come off. Periskin in good condition. No erythema or warmth. Nuno Don MD May 13, 2019 13:25
--- NOTE | 2019-05-13 13:27 | NUR ---
NURSE NOTES: Seen by Dr. Roth and informed pt failed weaning.
--- NOTE | 2019-05-13 14:15 | NUR ---
NURSE NOTES: ET and oral suction provided.
--- NOTE | 2019-05-13 14:33 | Surgery Progress Note ---
Surgery Progress Note Subjective Additional Comments not able to tolerate any weaning trials labs noted remains ill not on pressors malnutrition Objective Last 24 Hour Vital Signs Date Time Temp Pulse Resp B/P (MAP) Pulse Ox O2 Delivery O2 Flow Rate FiO2 05/13/19 13:00 79 14 105/40 (61) 100 05/13/19 12:46 76 14 30 05/13/19 12:45 105/40 05/13/19 12:00 97.9 63 13 91/34 (53) 100 05/13/19 12:00 67 05/13/19 12:00 30 05/13/19 12:00 Mechanical Ventilator 05/13/19 11:09 67 12 30 05/13/19 11:00 67 13 97/33 (54) 100 05/13/19 10:00 63 13 103/35 (57) 100 05/13/19 09:45 62 12 114/32 (59) 100 05/13/19 09:00 61 12 86/38 (54) 100 05/13/19 08:44 100 05/13/19 08:44 61 12 30 05/13/19 08:00 Mechanical Ventilator 05/13/19 08:00 64 05/13/19 08:00 98.0 79 16 125/45 (71) 100 05/13/19 08:00 30 05/13/19 07:14 60 12 Mechanical Ventilator 30 05/13/19 07:00 96 24 105/80 (88) 96 05/13/19 06:00 63 16 99/33 (55) 100 05/13/19 05:00 61 12 96/32 (53) 100 05/13/19 04:52 65 13 Mechanical Ventilator 30 05/13/19 04:00 Mechanical Ventilator 05/13/19 04:00 98.2 70 13 101/48 (65) 100 05/13/19 04:00 30 05/13/19 04:00 68 05/13/19 03:21 68 14 Mechanical Ventilator 30 05/13/19 03:00 68 13 109/44 (65) 100 05/13/19 02:00 67 12 110/51 (70) 100 05/13/19 01:05 61 12 Mechanical Ventilator 30 05/13/19 01:00 66 12 113/43 (66) 100 05/13/19 00:00 66 05/13/19 00:00 Mechanical Ventilator 05/13/19 00:00 99.3 67 13 108/44 (65) 100 05/12/19 23:00 68 13 119/46 (70) 100 05/12/19 22:49 64 12 Mechanical Ventilator 30 05/12/19 22:00 66 12 118/45 (69) 100 05/12/19 21:00 68 13 114/46 (68) 100 05/12/19 20:49 67 13 Mechanical Ventilator 30 05/12/19 20:00 99.2 67 13 125/45 (71) 100 05/12/19 20:00 Mechanical Ventilator 05/12/19 20:00 65 05/12/19 20:00 30 05/12/19 19:00 72 15 136/56 (82) 100 05/12/19 18:36 69 14 Mechanical Ventilator 30 05/12/19 18:00 71 14 131/52 (78) 100 05/12/19 17:02 68 13 30 05/12/19 17:00 99.0 68 14 128/45 (72) 99 05/12/19 16:00 Mechanical Ventilator 05/12/19 16:00 30 05/12/19 16:00 70 14 130/48 (75) 99 05/12/19 15:31 76 05/12/19 15:00 67 17 140/48 (78) 99 05/12/19 14:47 73 16 30 I&O Intake and Output 05/12/19 05/13/19 19:00 07:00 Intake Total 1300.0 ml 600 ml Output Total 1155 ml 880 ml Balance 145.0 ml -280 ml IV Total 550.0 ml Tube Feeding 600 ml 600 ml Other 150 ml Output Urine Total 1055 ml 730 ml Stool Total 100 ml 150 ml # Bowel Movements 2 Dressing: saturated Wound: clean Cardiovascular: RSR Respiratory: decreased breath sounds Abdomen: soft, non-distended Extremities: no cyanosis, other Laboratory Tests Test 05/13/19 05:00 White Blood Count 7.0 K/UL (4.8-10.8) Red Blood Count 3.22 M/UL (4.20-5.40) L Hemoglobin 9.4 G/DL (12.0-16.0) L Hematocrit 29.5 % (37.0-47.0) L Mean Corpuscular Volume 92 FL (80-99) Mean Corpuscular Hemoglobin 29.1 PG (27.0-31.0) Mean Corpuscular Hemoglobin Concent 31.7 G/DL (32.0-36.0) L Red Cell Distribution Width 16.5 % (11.6-14.8) H Platelet Count 208 K/UL (150-450) Mean Platelet Volume 6.3 FL (6.5-10.1) L Neutrophils (%) (Auto) 66.2 % (45.0-75.0) Lymphocytes (%) (Auto) 26.1 % (20.0-45.0) Monocytes (%) (Auto) 5.0 % (1.0-10.0) Eosinophils (%) (Auto) 1.6 % (0.0-3.0) Basophils (%) (Auto) 1.0 % (0.0-2.0) Sodium Level 144 MMOL/L (136-145) Potassium Level 5.4 MMOL/L (3.5-5.1) H Chloride Level 116 MMOL/L (98-107) H Carbon Dioxide Level 21 MMOL/L (21-32) Anion Gap 8 mmol/L (5-15) Blood Urea Nitrogen 37 mg/dL (7-18) H Creatinine 0.8 MG/DL (0.55-1.30) Estimat Glomerular Filtration Rate mL/min (>60) Glucose Level 122 MG/DL (74-106) H Uric Acid 4.0 MG/DL (2.6-7.2) Calcium Level 9.5 MG/DL (8.5-10.1) Phosphorus Level 2.4 MG/DL (2.5-4.9) L Magnesium Level 1.7 MG/DL (1.8-2.4) L Total Bilirubin 0.2 MG/DL (0.2-1.0) Aspartate Amino Transf (AST/SGOT) 24 U/L (15-37) Alanine Aminotransferase (ALT/SGPT) 36 U/L (12-78) Alkaline Phosphatase 274 U/L (46-116) H Total Protein 4.4 G/DL (6.4-8.2) L Albumin 1.5 G/DL (3.4-5.0) L Globulin 2.9 g/dL Albumin/Globulin Ratio 0.5 (1.0-2.7) L Plan Problems: (1) Sacral decubitus ulcer, stage III Assessment & Plan: Patient presented on admission with multiple pressure injuries noted. Patient seen by team during admission and I was called on to evaluate patient Full Thickness Stage III Pressure injury sacrum. Base of wound 100% necrotic with red margins(L)2.5cm x (W)2.7cm with surrounding maroon and indurated borders (L)7.5cm x (W)8.5cm. Periwound soft and with edema. Maroon and indurated area noted to R buttocks. Non-blanching erythema noted to R trochanteric.(L)6.5cm x (W)7.5cm. Elongated wound noted to medial/posterior R thigh(L)0.6cm x (W)5.2cm. L heel boggy with non-blanching erythema. Non-Blanchable erythema R heel without fluctuance. Recommendations: Wash wounds daily with NS or soap/water Apply therahoney or hydrogel impregnated gauze to sacral wound, cover with foam dressing daily and prn saturation Will need to monitor for incontinence as she is having loose stools and need diligent care as can worsen wound Apply foam dressing to R hip, change q3 days bilateral heel foam dressings APM/SOILA Mattress overlay. Reposition at least every 2hours or as tolerated. Off-load heels with Pillow. nutritional optimization will follow with recs thank you (2) Malnutrition Assessment & Plan: DAILY ESTIMATED NEEDS: Needs based on Critical care, wounds; 48.6kg 22- 30 kcals/kg 4620-3890 total kcals 1.25-2 g protein/kg 61-97 g total protein 25-30 mL/kg 1033-1746 total fluid mLs NUTRITION DIAGNOSIS: 1) Increased kcal and pro needs r/t wound healing AEB pt adm w/ multiple wounds, including full thickness sacral wounds, refer to WC eval. 2) Swallowing difficulty r/t respiratory status AEB pt is intubated, Peg dep, TF at low rate for elev residuals. CURRENT TF:Glucerna 1.2 @50-> now @20ml/hr ENTERAL NUTRITION RECOMMENDATIONS: VITAL AF 1.2 @ 45mL/hr x 24 hrs to provide 1080mL, 1296kcal, 81g pro, 876mL free H2O With continued elev residuals, rec TF change to VITAL 1.2 w/ goal rate of 45ml/ hr. - Start @15ml/hr until tolerated w/ no to little residuals. Advance 10ml/hr q4-6 hrs to goal rate TOLERATED. - Flush per MD. HOB over 30 degrees ADDITIONAL RECOMMENDATIONS: 1) Per SNF: 107 lbs, 60 inches 2) When pt is stable, see TF recs above. 3) Wound care: Add ARNALDO BID + Vit C 250mg BID -> Hold Arnaldo BID until TF is better tolerated w/ low to no residuals 4) Monitor lytes-> replete as needed 5) With continued elevated blood glucose, rec long acting insulin Monitor BG w/ active TF order (3) Failure to thrive in adult (4) Feeding by G-tube (5) Septic shock Assessment & Plan: labs noted exam as above wean vent as tolerated nutritional optimization trend labs abx as per ID will follow with recs will likely need trach soon as not weaning from vent thank you (6) Dehydration Ralph Roth May 13, 2019 14:33
--- NOTE | 2019-05-13 14:48 | Cardiology Progress Note ---
Assessment/Plan Problem List: (1) Failure to thrive in adult (2) COPD (chronic obstructive pulmonary disease) (3) NSTEMI (non-ST elevated myocardial infarction) (4) Acute respiratory failure (5) Feeding by G-tube Status: stable, unchanged Status Narrative Pt w/ pneumonia , respiratory failure. s/p nonSTEMI on admission. Preserved LV function by ECHO Assessment/Plan Continue current vent support. complete IV abx course. Wean pressors Subjective ROS Limited/Unobtainable: Yes Subjective Cardiology for Dr. Sarmiento Pt awake, intubated. Does not follow simple commands Objective Last 24 Hour Vital Signs Date Time Temp Pulse Resp B/P (MAP) Pulse Ox O2 Delivery O2 Flow Rate FiO2 05/13/19 13:00 79 14 105/40 (61) 100 05/13/19 12:46 76 14 30 05/13/19 12:00 97.9 63 13 91/34 (53) 100 05/13/19 12:00 67 05/13/19 12:00 30 05/13/19 12:00 Mechanical Ventilator 05/13/19 11:09 67 12 30 05/13/19 11:00 67 13 97/33 (54) 100 05/13/19 10:00 63 13 103/35 (57) 100 05/13/19 09:45 62 12 114/32 (59) 100 05/13/19 09:00 61 12 86/38 (54) 100 05/13/19 08:44 100 05/13/19 08:44 61 12 30 05/13/19 08:00 Mechanical Ventilator 05/13/19 08:00 64 05/13/19 08:00 98.0 79 16 125/45 (71) 100 05/13/19 08:00 30 05/13/19 07:14 60 12 Mechanical Ventilator 30 05/13/19 07:00 96 24 105/80 (88) 96 05/13/19 06:00 63 16 99/33 (55) 100 05/13/19 05:00 61 12 96/32 (53) 100 05/13/19 04:52 65 13 Mechanical Ventilator 30 05/13/19 04:00 Mechanical Ventilator 05/13/19 04:00 98.2 70 13 101/48 (65) 100 05/13/19 04:00 30 05/13/19 04:00 68 05/13/19 03:21 68 14 Mechanical Ventilator 30 05/13/19 03:00 68 13 109/44 (65) 100 05/13/19 02:00 67 12 110/51 (70) 100 05/13/19 01:05 61 12 Mechanical Ventilator 30 05/13/19 01:00 66 12 113/43 (66) 100 05/13/19 00:00 66 05/13/19 00:00 Mechanical Ventilator 05/13/19 00:00 99.3 67 13 108/44 (65) 100 05/12/19 23:00 68 13 119/46 (70) 100 05/12/19 22:49 64 12 Mechanical Ventilator 30 05/12/19 22:00 66 12 118/45 (69) 100 05/12/19 21:00 68 13 114/46 (68) 100 05/12/19 20:49 67 13 Mechanical Ventilator 30 05/12/19 20:00 99.2 67 13 125/45 (71) 100 05/12/19 20:00 Mechanical Ventilator 05/12/19 20:00 65 05/12/19 20:00 30 05/12/19 19:00 72 15 136/56 (82) 100 05/12/19 18:36 69 14 Mechanical Ventilator 30 05/12/19 18:00 71 14 131/52 (78) 100 05/12/19 17:02 68 13 30 05/12/19 17:00 99.0 68 14 128/45 (72) 99 05/12/19 16:00 Mechanical Ventilator 05/12/19 16:00 30 05/12/19 16:00 70 14 130/48 (75) 99 05/12/19 15:31 76 05/12/19 15:00 67 17 140/48 (78) 99 05/12/19 14:47 73 16 30 General Appearance: WD/WN, on vent Neck: no JVD Rhythm: NSR Cardiovascular: normal rate, regular rhythm, no gallop/murmur Respiratory/Chest: other - occ rhonchi Abdomen: normal bowel sounds, non tender, soft Extremities: no swelling Intake and Output 05/12/19 05/13/19 19:00 07:00 Intake Total 1300.0 ml 600 ml Output Total 1155 ml 880 ml Balance 145.0 ml -280 ml IV Total 550.0 ml Tube Feeding 600 ml 600 ml Other 150 ml Output Urine Total 1055 ml 730 ml Stool Total 100 ml 150 ml # Bowel Movements 2 Laboratory Tests Test 05/13/19 05:00 White Blood Count 7.0 K/UL (4.8-10.8) Red Blood Count 3.22 M/UL (4.20-5.40) L Hemoglobin 9.4 G/DL (12.0-16.0) L Hematocrit 29.5 % (37.0-47.0) L Mean Corpuscular Volume 92 FL (80-99) Mean Corpuscular Hemoglobin 29.1 PG (27.0-31.0) Mean Corpuscular Hemoglobin Concent 31.7 G/DL (32.0-36.0) L Red Cell Distribution Width 16.5 % (11.6-14.8) H Platelet Count 208 K/UL (150-450) Mean Platelet Volume 6.3 FL (6.5-10.1) L Neutrophils (%) (Auto) 66.2 % (45.0-75.0) Lymphocytes (%) (Auto) 26.1 % (20.0-45.0) Monocytes (%) (Auto) 5.0 % (1.0-10.0) Eosinophils (%) (Auto) 1.6 % (0.0-3.0) Basophils (%) (Auto) 1.0 % (0.0-2.0) Sodium Level 144 MMOL/L (136-145) Potassium Level 5.4 MMOL/L (3.5-5.1) H Chloride Level 116 MMOL/L (98-107) H Carbon Dioxide Level 21 MMOL/L (21-32) Anion Gap 8 mmol/L (5-15) Blood Urea Nitrogen 37 mg/dL (7-18) H Creatinine 0.8 MG/DL (0.55-1.30) Estimat Glomerular Filtration Rate mL/min (>60) Glucose Level 122 MG/DL (74-106) H Uric Acid 4.0 MG/DL (2.6-7.2) Calcium Level 9.5 MG/DL (8.5-10.1) Phosphorus Level 2.4 MG/DL (2.5-4.9) L Magnesium Level 1.7 MG/DL (1.8-2.4) L Total Bilirubin 0.2 MG/DL (0.2-1.0) Aspartate Amino Transf (AST/SGOT) 24 U/L (15-37) Alanine Aminotransferase (ALT/SGPT) 36 U/L (12-78) Alkaline Phosphatase 274 U/L (46-116) H Total Protein 4.4 G/DL (6.4-8.2) L Albumin 1.5 G/DL (3.4-5.0) L Globulin 2.9 g/dL Albumin/Globulin Ratio 0.5 (1.0-2.7) Cristal Hyatt MD May 13, 2019 14:48
--- NOTE | 2019-05-13 15:18 | Hematology/Onc Progress Note ---
Assessment/Plan Assessment/Plan # Anemia of chronic disease due to underlying chronic medical issues, multifactorial, in this case sepsis --> Anemia workup has been reviewed, no bleeding --> No evidence of hemolysis is noted, peripheral smear has been reviewed. --> Hgb goal >7. Transfuse prn. --> Epogen or iron at this time is not particularly indicated --> Medications have been reviewed --> low threshold for gi evaluation in case has occult + --> bone marrow biopsy is not indicated given the other more likely causes --> hgb trend 11.5-->7.8-->8.9 --> 9.4 # Thrombocytopenia - potential causes multifactorial, evaluate liver and viral etiologies to begin, also could be related to underlying medications patient has received. In this case with septic shock --> Hep panel and HIV ordered --> US abd to evaluate for cirrhosis and hsm ordered --> Peripheral smear ordered to evaluate for blasts /schistocytes --> abx and other meds have been reviewed --> ok for ppx if plt >50k w/ either heparin or lovenox --> Transfuse if Plt < 20k and fever, or if Plt < 10k without fever --> plt trend 164-->102-->104-->241 # Hypercalcemia --> started on ivf by renal --> Ca trend as needed --> pamidronate given calcitonin # Septic shock --> erta/aamikacin/vanc per id # Acute kidney injury --> per renal # Acute respiratory failure s/p vent --> per pulm # Dysphagia s/p peg # Decub ulceration --> therahoney as per surg # Schizophrenia # Dvt ppx heparins sq The timing of this note does not necessarily reflect the time of the patient was seen. Greatly appreciate consultation. Subjective Cardiovascular: Denies: no symptoms, chest pain, edema, irregular heart rate, lightheadedness, palpitations, syncope, other Respiratory: Denies: no symptoms, cough, shortness of breath, SOB with excertion, SOB at rest, sputum, wheezing, other Gastrointestinal/Abdominal: Denies: no symptoms, abdomen distended, abdominal pain, black stools, tarry stools, blood in stool, constipated, diarrhea, difficulty swallowing, nausea, poor appetite, poor fluid intake, rectal bleeding , vomiting, other Genitourinary: Denies: no symptoms, burning, discharge, frequency, flank pain, hematuria, incontinence, pain, urgency, other Neurologic/Psychiatric: Denies: no symptoms, anxiety, depressed, emotional problems, headache, numbness, paresthesia, pre-existing deficit, seizure, tingling, tremors, weakness, other Endocrine: Denies: no symptoms, excessive sweating, flushing, intolerance to cold, intolerance to heat, increased hunger, increased thirst, increased urine, unexplained weight gain, unexplained weight loss, other Hematologic/Lymphatic: Denies: no symptoms, anemia, easy bleeding, easy bruising, adenopathy, other Allergies: Coded Allergies: No Known Allergies (Unverified , 05/01/19) Subjective 05/03: remains on vent, counts reviewed with rn, on abx, no bleeding 05/11: icu, awake, nonverbal, failed to wean from vent 05/12: no events noted, overnight, dw rn in the am, no bleeding 05/13: remains intubated, labs noted, no bleeding no chills Objective Objective Current Medications Medications (Trade) Dose Ordered Sig/Vane Route PRN Reason Start Time Stop Time Status Last Admin Dose Admin Acetaminophen (Tylenol) 650 mg Q4H PRN NG fever 05/04/19 09:30 05/31/19 12:44 05/04/19 10:00 Albuterol/ Ipratropium (Albuterol/ Ipratropium) 3 ml Q4HRT PRN HHN sob 05/13/19 10:30 05/18/19 10:29 Calcitonin [place] (Miacalcin) 1 sprays DAILY NASAL 05/04/19 09:00 06/03/19 08:59 05/13/19 08:23 Chlorhexidine Gluconate (Shanice-Hex 2%) 1 applic DAILY@1999 TOPIC 05/01/19 20:00 05/31/19 19:59 05/12/19 20:07 Dextrose (Dextrose 50%) 25 ml Q30M PRN IV Hypoglycemia 05/02/19 06:30 06/01/19 06:29 Dextrose (Dextrose 50%) 50 ml Q30M PRN IV Hypoglycemia 05/02/19 06:30 06/01/19 06:29 Heparin Sodium (Porcine) (Heparin 5000 units/ml) 5,000 units EVERY 12 HOURS SUBQ 05/01/19 21:00 05/31/19 20:59 05/13/19 08:24 Insulin Aspart (NovoLOG) EVERY 6 HOURS SUBQ 05/02/19 07:30 06/01/19 07:29 05/13/19 11:35 Midodrine (Pro-Amatine) 5 mg THREE TIMES A DAY NG 05/06/19 13:00 06/04/19 12:59 05/13/19 12:41 Norepinephrine Bitartrate 4 mg/ Dextrose 254 ml @ 0 mls/hr Q24H IV 05/01/19 12:45 05/31/19 12:44 05/04/19 18:15 Ondansetron HCl (Zofran) 4 mg Q6H PRN IVP Nausea & Vomiting 05/01/19 12:45 05/31/19 12:44 Pantoprazole (Protonix) 40 mg Q12HR IV 05/01/19 21:00 06/01/19 08:59 05/13/19 08:23 Risperidone (RisperDAL) 0.25 mg QHS PRN GT Agitation 05/02/19 07:30 06/01/19 07:29 Sodium Phosphate 15 mm/Sodium Chloride 280 ml @ 70.273 mls/ hr ONCE ONCE IVPB 05/13/19 12:00 05/13/19 15:59 05/13/19 11:34 Last 24 Hour Vital Signs Date Time Temp Pulse Resp B/P (MAP) Pulse Ox O2 Delivery O2 Flow Rate FiO2 05/13/19 13:00 79 14 105/40 (61) 100 05/13/19 12:46 76 14 30 05/13/19 12:45 105/40 05/13/19 12:00 97.9 63 13 91/34 (53) 100 05/13/19 12:00 67 05/13/19 12:00 30 05/13/19 12:00 Mechanical Ventilator 05/13/19 11:09 67 12 30 05/13/19 11:00 67 13 97/33 (54) 100 05/13/19 10:00 63 13 103/35 (57) 100 05/13/19 09:45 62 12 114/32 (59) 100 05/13/19 09:00 61 12 86/38 (54) 100 05/13/19 08:44 100 05/13/19 08:44 61 12 30 05/13/19 08:00 Mechanical Ventilator 05/13/19 08:00 64 05/13/19 08:00 98.0 79 16 125/45 (71) 100 05/13/19 08:00 30 05/13/19 07:14 60 12 Mechanical Ventilator 30 05/13/19 07:00 96 24 105/80 (88) 96 05/13/19 06:00 63 16 99/33 (55) 100 05/13/19 05:00 61 12 96/32 (53) 100 05/13/19 04:52 65 13 Mechanical Ventilator 30 05/13/19 04:00 Mechanical Ventilator 05/13/19 04:00 98.2 70 13 101/48 (65) 100 05/13/19 04:00 30 05/13/19 04:00 68 05/13/19 03:21 68 14 Mechanical Ventilator 30 05/13/19 03:00 68 13 109/44 (65) 100 05/13/19 02:00 67 12 110/51 (70) 100 05/13/19 01:05 61 12 Mechanical Ventilator 30 05/13/19 01:00 66 12 113/43 (66) 100 05/13/19 00:00 66 05/13/19 00:00 Mechanical Ventilator 05/13/19 00:00 99.3 67 13 108/44 (65) 100 05/12/19 23:00 68 13 119/46 (70) 100 05/12/19 22:49 64 12 Mechanical Ventilator 30 05/12/19 22:00 66 12 118/45 (69) 100 05/12/19 21:00 68 13 114/46 (68) 100 05/12/19 20:49 67 13 Mechanical Ventilator 30 05/12/19 20:00 99.2 67 13 125/45 (71) 100 05/12/19 20:00 Mechanical Ventilator 05/12/19 20:00 65 05/12/19 20:00 30 05/12/19 19:00 72 15 136/56 (82) 100 05/12/19 18:36 69 14 Mechanical Ventilator 30 05/12/19 18:00 71 14 131/52 (78) 100 05/12/19 17:02 68 13 30 05/12/19 17:00 99.0 68 14 128/45 (72) 99 05/12/19 16:00 Mechanical Ventilator 05/12/19 16:00 30 05/12/19 16:00 70 14 130/48 (75) 99 05/12/19 15:31 76 05/12/19 15:00 67 17 140/48 (78) 99 05/12/19 14:47 73 16 30 05/12/19 14:00 71 16 128/78 (95) 100 05/12/19 13:00 70 17 122/45 (70) 100 05/12/19 12:55 74 16 30 05/12/19 12:00 30 05/12/19 12:00 73 05/12/19 12:00 Mechanical Ventilator 05/12/19 12:00 98.6 70 19 133/60 (84) 100 05/12/19 11:00 72 17 146/53 (84) 98 05/12/19 10:29 64 13 30 05/12/19 10:00 66 13 131/50 (77) 100 05/12/19 09:00 69 23 129/52 (77) 100 05/12/19 08:53 30 05/12/19 08:52 100 05/12/19 08:49 63 05/12/19 08:00 98.8 59 12 112/39 (63) 100 05/12/19 08:00 30 05/12/19 08:00 Mechanical Ventilator 05/12/19 07:00 64 12 112/44 (66) 100 05/12/19 06:43 63 12 30 05/12/19 06:00 65 14 113/51 (71) 100 05/12/19 05:15 63 14 30 05/12/19 05:00 71 18 129/55 (79) 100 05/12/19 04:00 98.8 56 12 109/49 (69) 100 05/12/19 04:00 Mechanical Ventilator 05/12/19 04:00 69 05/12/19 04:00 30 05/12/19 03:00 58 12 131/56 (81) 100 05/12/19 02:39 59 12 30 05/12/19 02:00 57 12 116/48 (70) 100 05/12/19 01:03 60 12 30 05/12/19 01:00 98.8 61 19 143/59 (87) 100 05/12/19 01:00 67 12 123/51 (75) 100 05/12/19 00:00 30 05/12/19 00:00 98.8 61 19 143/59 (87) 100 05/12/19 00:00 65 05/12/19 00:00 Mechanical Ventilator 05/11/19 23:10 61 26 30 05/11/19 23:00 63 13 140/52 (81) 100 05/11/19 22:00 60 12 127/46 (73) 100 05/11/19 21:05 62 16 30 05/11/19 21:00 63 13 139/48 (78) 100 05/11/19 20:00 30 05/11/19 20:00 69 05/11/19 20:00 Mechanical Ventilator 05/11/19 20:00 99.0 61 12 123/44 (70) 99 05/11/19 19:19 64 18 30 05/11/19 19:00 68 14 139/58 (85) 100 05/11/19 18:00 63 14 118/42 (67) 99 05/11/19 17:21 66 15 30 05/11/19 17:00 99.4 64 25 126/97 (107) 100 05/11/19 16:00 Mechanical Ventilator 05/11/19 16:00 30 05/11/19 16:00 63 25 126/97 (107) 100 05/11/19 15:34 61 Intake and Output 05/12/19 05/13/19 19:00 07:00 Intake Total 1300.0 ml 600 ml Output Total 1155 ml 880 ml Balance 145.0 ml -280 ml IV Total 550.0 ml Tube Feeding 600 ml 600 ml Other 150 ml Output Urine Total 1055 ml 730 ml Stool Total 100 ml 150 ml # Bowel Movements 2 Labs Test 05/11/19 04:45 05/11/19 09:07 05/12/19 05:22 05/13/19 05:00 White Blood Count 7.3 K/UL (4.8-10.8) 8.4 K/UL (4.8-10.8) 7.0 K/UL (4.8-10.8) Red Blood Count 3.04 M/UL (4.20-5.40) 3.28 M/UL (4.20-5.40) 3.22 M/UL (4.20-5.40) Hemoglobin 8.9 G/DL (12.0-16.0) 9.4 G/DL (12.0-16.0) 9.4 G/DL (12.0-16.0) Hematocrit 27.2 % (37.0-47.0) 29.4 % (37.0-47.0) 29.5 % (37.0-47.0) Mean Corpuscular Volume 90 FL (80-99) 90 FL (80-99) 92 FL (80-99) Mean Corpuscular Hemoglobin 29.4 PG (27.0-31.0) 28.5 PG (27.0-31.0) 29.1 PG (27.0-31.0) Mean Corpuscular Hemoglobin Concent 32.9 G/DL (32.0-36.0) 31.9 G/DL (32.0-36.0) 31.7 G/DL (32.0-36.0) Red Cell Distribution Width 15.8 % (11.6-14.8) 16.1 % (11.6-14.8) 16.5 % (11.6-14.8) Platelet Count 241 K/UL (150-450) 239 K/UL (150-450) 208 K/UL (150-450) Mean Platelet Volume 5.1 FL (6.5-10.1) 5.4 FL (6.5-10.1) 6.3 FL (6.5-10.1) Neutrophils (%) (Auto) 72.8 % (45.0-75.0) 64.1 % (45.0-75.0) 66.2 % (45.0-75.0) Lymphocytes (%) (Auto) 20.8 % (20.0-45.0) 27.6 % (20.0-45.0) 26.1 % (20.0-45.0) Monocytes (%) (Auto) 3.7 % (1.0-10.0) 4.8 % (1.0-10.0) 5.0 % (1.0-10.0) Eosinophils (%) (Auto) 1.8 % (0.0-3.0) 2.6 % (0.0-3.0) 1.6 % (0.0-3.0) Basophils (%) (Auto) 0.9 % (0.0-2.0) 1.0 % (0.0-2.0) 1.0 % (0.0-2.0) Sodium Level 137 MMOL/L (136-145) 136 MMOL/L (136-145) 144 MMOL/L (136-145) Potassium Level 4.6 MMOL/L (3.5-5.1) 4.9 MMOL/L (3.5-5.1) 5.4 MMOL/L (3.5-5.1) Chloride Level 110 MMOL/L (98-107) 110 MMOL/L (98-107) 116 MMOL/L (98-107) Carbon Dioxide Level 19 MMOL/L (21-32) 21 MMOL/L (21-32) 21 MMOL/L (21-32) Anion Gap 8 mmol/L (5-15) 5 mmol/L (5-15) 8 mmol/L (5-15) Blood Urea Nitrogen 35 mg/dL (7-18) 36 mg/dL (7-18) 37 mg/dL (7-18) Creatinine 1.1 MG/DL (0.55-1.30) 1.1 MG/DL (0.55-1.30) 0.8 MG/DL (0.55-1.30) Estimat Glomerular Filtration Rate mL/min (>60) mL/min (>60) mL/min (>60) Glucose Level 140 MG/DL (74-106) 125 MG/DL (74-106) 122 MG/DL (74-106) Calcium Level 9.0 MG/DL (8.5-10.1) 9.7 MG/DL (8.5-10.1) 9.5 MG/DL (8.5-10.1) Phosphorus Level 2.8 MG/DL (2.5-4.9) 2.4 MG/DL (2.5-4.9) Magnesium Level 2.0 MG/DL (1.8-2.4) 1.7 MG/DL (1.8-2.4) Total Bilirubin 0.2 MG/DL (0.2-1.0) 0.2 MG/DL (0.2-1.0) Aspartate Amino Transf (AST/SGOT) 34 U/L (15-37) 24 U/L (15-37) Alanine Aminotransferase (ALT/SGPT) 53 U/L (12-78) 36 U/L (12-78) Alkaline Phosphatase 305 U/L (46-116) 274 U/L (46-116) Total Protein 4.3 G/DL (6.4-8.2) 4.4 G/DL (6.4-8.2) Albumin 1.4 G/DL (3.4-5.0) 1.5 G/DL (3.4-5.0) Globulin 2.9 g/dL 2.9 g/dL Albumin/Globulin Ratio 0.5 (1.0-2.7) 0.5 (1.0-2.7) Arterial Blood pH 7.510 (7.350-7.450) Arterial Blood Partial Pressure CO2 20.0 mmHg (35.0-45.0) Arterial Blood Partial Pressure O2 134.7 mmHg (75.0-100.0) Arterial Blood HCO3 15.6 mmol/L (22.0-26.0) Arterial Blood Oxygen Saturation 98.1 % (95-100) Arterial Blood Base Excess -5.9 (-2-2) Silas Test Positive Uric Acid 4.0 MG/DL (2.6-7.2) Height (Feet): 5 Height (Inches): 7.00 Weight (Pounds): 122 Objective Gen: Nad Pulm: is vent++ CV: ++ tachy Abd: soft, nt, ++ g tube Ext: 1+ edema noted Bruce Coombs MD May 13, 2019 15:18
--- NOTE | 2019-05-13 16:20 | NUR ---
NURSE NOTES: Bed bath given.
--- NOTE | 2019-05-13 17:00 | Progress Note ---
DATE: 05/13/2019 SUBJECTIVE: This is a 78-year-old female patient. She is still in the ICU thoughts, confusion, decline in cognition below her baseline, and mood lability. She is disorganized with respiratory failure, decline in cognition below her baseline, mood lability, altered mental status. That is why, attending has requested daily psychiatric consultation. DIAGNOSIS: Major depressive disorder, severe, recurrent with psychotic features, rule out dementia with psychosis. PLAN: Risperdal 0.25 mg per G-tube nightly p.r.n. anxiety and agitation. Chart reviewed. Discussed with staff. Seen and assessed at bedside. Kristen Rodgers M.D. DR: TRIPP JOB#: [id number] CC:
--- NOTE | 2019-05-13 18:08 | General Progress Note ---
Assessment/Plan Status: stable, unchanged Assessment/Plan: Assessment/Plan Problems: (1) Septic shock ICD Codes: A41.9 - Sepsis, unspecified organism; R65.21 - Severe sepsis with septic shock SNOMED: 87270579, 5408703 (2) Feeding by G-tube, dysphagia ICD Codes: Z93.1 - Gastrostomy status SNOMED: 452996185, 496879310, 603090855 (3) Diabetes mellitus ICD Codes: E11.9 - Type 2 diabetes mellitus without complications SNOMED: 69267552 (4) Anemia ICD Codes: D64.9 - Anemia, unspecified SNOMED: 861226465 Assessment/Plan No plans for any GI procedures at this given time. occult blood stool to evaluate for any GI bleed, negative Monitor H&H, PRN transfusions PPI GTFs Electrolyte correction, increase free water flushes for hypernatremia GT site care daily and as needed We will follow on a daily basis with additional recommendation add erythromycin for elevated residuals, TF tolerated Subjective Allergies: Coded Allergies: No Known Allergies (Unverified , 05/01/19) Subjective Seen in ICU intubated unresponsive D/w staffing consultant Objective Last 24 Hour Vital Signs Date Time Temp Pulse Resp B/P (MAP) Pulse Ox O2 Delivery O2 Flow Rate FiO2 05/13/19 16:38 73 12 30 05/13/19 16:00 99.2 70 13 98/46 (63) 99 05/13/19 16:00 30 05/13/19 16:00 Mechanical Ventilator 05/13/19 15:29 72 12 30 05/13/19 15:00 74 14 104/50 (68) 100 05/13/19 14:00 76 14 93/43 (60) 100 05/13/19 13:00 79 14 105/40 (61) 100 05/13/19 12:46 76 14 30 05/13/19 12:45 105/40 05/13/19 12:00 97.9 63 13 91/34 (53) 100 05/13/19 12:00 67 05/13/19 12:00 30 05/13/19 12:00 Mechanical Ventilator 05/13/19 11:09 67 12 30 05/13/19 11:00 67 13 97/33 (54) 100 05/13/19 10:00 63 13 103/35 (57) 100 05/13/19 09:45 62 12 114/32 (59) 100 05/13/19 09:00 61 12 86/38 (54) 100 05/13/19 08:44 100 05/13/19 08:44 61 12 30 05/13/19 08:00 Mechanical Ventilator 05/13/19 08:00 64 05/13/19 08:00 98.0 79 16 125/45 (71) 100 05/13/19 08:00 30 05/13/19 07:14 60 12 Mechanical Ventilator 30 05/13/19 07:00 96 24 105/80 (88) 96 05/13/19 06:00 63 16 99/33 (55) 100 05/13/19 05:00 61 12 96/32 (53) 100 05/13/19 04:52 65 13 Mechanical Ventilator 30 05/13/19 04:00 Mechanical Ventilator 05/13/19 04:00 98.2 70 13 101/48 (65) 100 05/13/19 04:00 30 05/13/19 04:00 68 05/13/19 03:21 68 14 Mechanical Ventilator 30 05/13/19 03:00 68 13 109/44 (65) 100 05/13/19 02:00 67 12 110/51 (70) 100 05/13/19 01:05 61 12 Mechanical Ventilator 30 05/13/19 01:00 66 12 113/43 (66) 100 05/13/19 00:00 66 05/13/19 00:00 Mechanical Ventilator 05/13/19 00:00 99.3 67 13 108/44 (65) 100 05/12/19 23:00 68 13 119/46 (70) 100 05/12/19 22:49 64 12 Mechanical Ventilator 30 05/12/19 22:00 66 12 118/45 (69) 100 05/12/19 21:00 68 13 114/46 (68) 100 05/12/19 20:49 67 13 Mechanical Ventilator 30 05/12/19 20:00 99.2 67 13 125/45 (71) 100 05/12/19 20:00 Mechanical Ventilator 05/12/19 20:00 65 05/12/19 20:00 30 05/12/19 19:00 72 15 136/56 (82) 100 05/12/19 18:36 69 14 Mechanical Ventilator 30 Intake and Output 05/12/19 05/13/19 19:00 07:00 Intake Total 1300.0 ml 600 ml Output Total 1155 ml 880 ml Balance 145.0 ml -280 ml IV Total 550.0 ml Tube Feeding 600 ml 600 ml Other 150 ml Output Urine Total 1055 ml 730 ml Stool Total 100 ml 150 ml # Bowel Movements 2 Laboratory Tests 05/13/19 05:00: White Blood Count 7.0, Red Blood Count 3.22L, Hemoglobin 9.4L, Hematocrit 29.5L , Mean Corpuscular Volume 92, Mean Corpuscular Hemoglobin 29.1, Mean Corpuscular Hemoglobin Concent 31.7L, Red Cell Distribution Width 16.5H, Platelet Count 208, Mean Platelet Volume 6.3L, Neutrophils (%) (Auto) 66.2, Lymphocytes (%) (Auto) 26.1, Monocytes (%) (Auto) 5.0, Eosinophils (%) (Auto) 1.6, Basophils (%) (Auto) 1.0, Sodium Level 144, Potassium Level 5.4H, Chloride Level 116H, Carbon Dioxide Level 21, Anion Gap 8, Blood Urea Nitrogen 37H, Creatinine 0.8, Estimat Glomerular Filtration Rate , Glucose Level 122H, Uric Acid 4.0, Calcium Level 9.5, Phosphorus Level 2.4L, Magnesium Level 1.7L, Total Bilirubin 0.2, Aspartate Amino Transf (AST/SGOT) 24, Alanine Aminotransferase ( ALT/SGPT) 36, Alkaline Phosphatase 274H, Total Protein 4.4L, Albumin 1.5L, Globulin 2.9, Albumin/Globulin Ratio 0.5L Height (Feet): 5 Height (Inches): 7.00 Weight (Pounds): 122 Objective WDWN NCAT Supple CTA RR abd soft , (+) GT no edema non communicative Katherine Barber MD May 13, 2019 18:08
--- NOTE | 2019-05-13 18:20 | NUR ---
NURSE NOTES: Repositioned patient and oral care provided.
--- NOTE | 2019-05-13 19:04 | NUR ---
RESPIRATORY NOTE: Received pt on AC 12, 500VT, 30%, PEEP +5. Pt intubated w/ ETT 7.5 @ 22cm lipline, secured by anchorfast. Pt is awake/disoriented, responds to stimuli. B/S jaime. rhonchi, sxn small to moderate amounts of thick/thin, white to pale-yellow secretions w/ occasional froth. Bite block in place as pt tends to clench jaw. Pt on mittens to prevent self-extubation. Vent plugged into red outlet, ambubag at bedside. Pt in no apparent distress at this time. Will continue to monitor pt.
--- NOTE | 2019-05-13 19:22 | NUR ---
HAND-OFF: Report given to MONA Trammell. Endorsed plan of care.
--- NOTE | 2019-05-13 19:30 | NUR ---
NURSE NOTES: Received report from MONA Ibarra. patient opens eyes spontaneously, unable to track and intermittently follow commands. Orally intubated, ETT 7.5, 22cm at lip line. AC 16, TV 500, FIO2 30%, PEEP 5. O2 sat 100%. No distress noted. Hold Glucerna 1.2 at 50cc for 105cc residual. HOB elevated . Hilario intact and draining with yellow color urine. Rectal tube intact . Left upper arm PICC intact and clean with TKO. bed alarm on. bed lock and in low position. Rectal tube intact. dressing on sacral area intact. On P200 mattress for wound management. will continue plan of care.
[2019-05-13] MEDS: Dyna-Hex 2% Top Sol 2oz TOPIC SCH (20:42)
--- NOTE | 2019-05-13 21:30 | NUR ---
NURSE NOTES: Patient in bed resting, oral care provided. turned and repositioned. HOB elevated. Continue GTF of Glucerna 1.2 at 50cc/hr, with 50cc residual. will continue to monitor patient.
--- NOTE | 2019-05-13 23:30 | NUR ---
NURSE NOTES: Patient in bed agitated biting tubing and holding the tubing reality orientation provided, encouraged patient to verbalize needs, fears and feelings to staff, repositioned, TV and talk therapy provided not effective. Risperdal 0.25mg tab via GT given effective.
[2019-05-14] VITALS (29 sets, daily range): BP systolic 74–119; BP diastolic 31–66
[2019-05-14] MEDS: NovoLOG Insulin Flexpen SUBQ SCH ×4 (00:17→18:00)
--- NOTE | 2019-05-14 01:30 | NUR ---
NURSE NOTES: Bed bath given tolerated well. Wound care done. oral care and suctioned patient. Turned and repositioned. comfort measure provided. No moaning no facial grimaces. No s/s of acute distress noted. will continue plan of care.
--- NOTE | 2019-05-14 03:30 | NUR ---
NURSE NOTES: Patient in bed sleeping comfortably. No s/s of acute distress noted. Left upper arm PICC intact no s/s of infiltration. Turned and repositioned.suctioned and oral care provided.
[2019-05-14 04:50] LABS: HEMATOCRIT 24.3 % (37.0-47.0); HEMOGLOBIN 7.8 G/DL (12.0-16.0); MEAN CORPUSCULAR VOLUME 90 FL (80-99); PLATELET COUNT 184 K/UL (150-450); RED BLOOD COUNT 2.71 M/UL (4.20-5.40); RED CELL DISTRIBUTION WIDTH 15.9 % (11.6-14.8); WHITE BLOOD COUNT 7.2 K/UL (4.8-10.8)
[2019-05-14 05:24] LABS: ALANINE AMINOTRANSFERASE 29 U/L (12-78); ALBUMIN/GLOBULIN RATIO 0.8 (1.0-2.7); ALKALINE PHOSPHATASE 230 U/L (46-116); ANION GAP 6 mmol/L (5-15); ASPARTATE AMINO TRANSFERASE 18 U/L (15-37); BILIRUBIN,TOTAL 0.3 MG/DL (0.2-1.0); BLOOD UREA NITROGEN 30 mg/dL (7-18); CALCIUM 9.6 MG/DL (8.5-10.1); CARBON DIOXIDE 24 MMOL/L (21-32); CHLORIDE 115 MMOL/L (98-107); CREATININE 0.7 MG/DL (0.55-1.30); POTASSIUM 4.8 MMOL/L (3.5-5.1); SODIUM 144 MMOL/L (136-145)
--- NOTE | 2019-05-14 05:30 | NUR ---
NURSE NOTES: Patient in bed awake watching TV. no s/s of acute distress. Blood glucose 110mg/dl. no coverage. rectal tube draining. Hilario draining. Kept clean and dry. call light within easy reach. will continue plan of care.
[2019-05-14] MEDS ORDERED: LORazepam 0.5mg tab GT PRN (06:30)
--- NOTE | 2019-05-14 07:10 | NUR ---
RESPIRATORY NOTE: received pt orally intubated with ETT 7.5 placed 23cm at the lip secured via anchor fast. no appearance of any redness or skin wounds seen around facial/mouth area. current vent settings in place with no signs of resp distress. bilateral diminished rhonchi breath sounds heard upon auscultation with small amounts of pale/yellow secretions when sxn'd. alarms are set appropriately with ambu bag at bedside. will attempt to wean later this morning and cont to monitor throughout the day.
--- NOTE | 2019-05-14 07:15 | NUR ---
HAND-OFF: Report given to Fred DUNN.
--- NOTE | 2019-05-14 07:20 | NUR ---
NURSE NOTES: Received report from MONA Trammell. Patient is awake and watching TV. ETT 7.5/22cm at lip lien with vent setting AC 12, VT 500, Peep 5 and FiO2 30%. GT intact and running with Glucerna 1.2 @50ml/hr and held it for weaning for now. Rectal tube intact and draining brown color liquid stool. Left upper arm PICC intact and clean with TKO. Kept dry, clean and comfortable. Will continue plan of care.
--- NOTE | 2019-05-14 07:55 | NUR ---
NURSE NOTES: Seen by OZZIE Remy and assessed patient. Informed Hgb 7.8 today. No new order at this time. Will continue plan of care.
--- NOTE | 2019-05-14 08:12 | Infectious Diseases Prog Note ---
Assessment/Plan Assessment/Plan Assessment/Recommendation: Tmax 104.2, SP New leukocytosis after steroid given, SP Lactate 3.4>1.6>2.4>3.3>3.8>1.0 UTI, SP 05/01 UA 10-15 WBC 05/01 UCx: MDR Klebsiella(R-imipenem, gent, cipro, nitrofurantoin, zosyn, bactrim. I-amikacin) PNA, SP 05/01 sputum cx: MRSA, Providencia(S-amikacin, cefepime, ceftazidime, cipro, erta, zosyn), normal resp magdalena 05/01 CXR: Right mainstem intubation. Suggest pulling the tube back about 3 cm. Atelectasis of the left lower lobe. Superimposed pneumonia or pleural effusion is not excluded. CHF suspected. 05/01 CXR: Endotracheal tube is 2 cm above the guille in good position. A left subclavian line is also present in good position of the tip projected over the SVC. Pulmonary edema again demonstrated. There is hazy opacity at the left lung base which is probably a pleural effusion. 05/02 CXR: Over one day, interval improvement of previously demonstrated left- sided pleural fluid and interstitial and airspace edema. Parenchymal disease is unchanged on the right. 05/03 CXR: Stable satisfactory positions of endotracheal tube, left arm PICC. Hazy opacities in the right mid and lower lung are probably unchanged. There is a small amount of hazy opacity at the left lung base persisting as well. The heart is normal in size. Allowing for technical differences, findings are overall unchanged r/o bacteremia 05/01 BCx: ng MRSA negative VRE negative CRE negative HTN COPD Schizophrenia DM G tube Parkinson CKD Protein calorie malnutrition Dementia Psychosis Gastritis Functional paraplegia Plan: monitor off antibiotics 05/11 SP Brad and Linezolid #7(#10 of total abx) 05/05 DC Cefepime #1 05/04 SP Colistin #1 05/04 DC Ertapenem, Amikacin, Vancomycin #3 05/01 SP Zosyn #1 monitor temp, CBC, resp status aspiration precaution ETT management skin care oral care C diff if diarrhea persists--appears to have resolved Thank you for this consult. [facility] will continue to follow the patient with you. Subjective Allergies: Coded Allergies: No Known Allergies (Unverified , 05/01/19) Subjective Afebrile. no leukocytosis Failed extubation this morning No bowel movements Thick but minimal secretion Objective Vital Signs Last 24 Hour Vital Signs Date Time Temp Pulse Resp B/P (MAP) Pulse Ox O2 Delivery O2 Flow Rate FiO2 05/14/19 07:08 69 13 96/36 (56) 99 05/14/19 07:08 68 13 30 05/14/19 07:00 67 13 88/38 (55) 100 05/14/19 06:00 65 13 89/59 (69) 100 05/14/19 05:12 65 13 30 05/14/19 05:00 66 15 100/35 (56) 100 05/14/19 04:07 59 12 91/38 (55) 99 05/14/19 04:00 30 05/14/19 04:00 98.4 59 12 88/39 (55) 99 05/14/19 04:00 Mechanical Ventilator 05/14/19 04:00 58 05/14/19 03:08 64 15 30 05/14/19 03:03 63 12 102/36 (58) 100 05/14/19 03:00 60 13 80/37 (51) 100 05/14/19 02:00 62 13 97/41 (59) 99 05/14/19 01:05 63 18 30 05/14/19 01:00 60 12 92/31 (51) 100 05/14/19 00:00 99.0 57 12 102/37 (58) 100 05/14/19 00:00 Mechanical Ventilator 05/14/19 00:00 61 05/13/19 23:00 66 17 115/37 (63) 99 05/13/19 22:45 68 25 30 05/13/19 22:00 68 19 102/39 (60) 100 05/13/19 21:09 65 12 30 05/13/19 21:00 66 15 102/39 (60) 100 05/13/19 20:00 Mechanical Ventilator 05/13/19 20:00 99.0 65 13 104/68 (80) 100 05/13/19 20:00 30 05/13/19 19:08 68 05/13/19 19:02 69 16 30 05/13/19 19:00 70 15 101/57 (72) 100 05/13/19 18:00 71 15 113/46 (68) 100 05/13/19 17:00 72 15 112/44 (66) 100 05/13/19 16:38 73 12 30 05/13/19 16:00 99.2 70 13 98/46 (63) 99 05/13/19 16:00 30 05/13/19 16:00 81 05/13/19 16:00 Mechanical Ventilator 05/13/19 15:29 72 12 30 05/13/19 15:00 74 14 104/50 (68) 100 05/13/19 14:00 76 14 93/43 (60) 100 05/13/19 13:00 79 14 105/40 (61) 100 05/13/19 12:46 76 14 30 05/13/19 12:45 105/40 05/13/19 12:00 97.9 63 13 91/34 (53) 100 05/13/19 12:00 67 05/13/19 12:00 30 05/13/19 12:00 Mechanical Ventilator 05/13/19 11:09 67 12 30 05/13/19 11:00 67 13 97/33 (54) 100 05/13/19 10:00 63 13 103/35 (57) 100 05/13/19 09:45 62 12 114/32 (59) 100 05/13/19 09:00 61 12 86/38 (54) 100 05/13/19 08:44 100 05/13/19 08:44 61 12 30 Height (Feet): 5 Height (Inches): 7.00 Weight (Pounds): 122 Objective VS: Tmax 104.2 Gen: NAD. twitching HEENT: ETT CV: RRR Resp: RRR. coarse. no wheezes Abd: soft. nondistended. normoactive Bs+ Neuro: not awake Laboratory Tests Test 05/14/19 04:30 05/14/19 07:55 White Blood Count 7.2 K/UL (4.8-10.8) Red Blood Count 2.71 M/UL (4.20-5.40) L Hemoglobin 7.8 G/DL (12.0-16.0) L Hematocrit 24.3 % (37.0-47.0) L Mean Corpuscular Volume 90 FL (80-99) Mean Corpuscular Hemoglobin 29.0 PG (27.0-31.0) Mean Corpuscular Hemoglobin Concent 32.3 G/DL (32.0-36.0) Red Cell Distribution Width 15.9 % (11.6-14.8) H Platelet Count 184 K/UL (150-450) Mean Platelet Volume 5.4 FL (6.5-10.1) L Neutrophils (%) (Auto) % (45.0-75.0) Lymphocytes (%) (Auto) % (20.0-45.0) Monocytes (%) (Auto) % (1.0-10.0) Eosinophils (%) (Auto) % (0.0-3.0) Basophils (%) (Auto) % (0.0-2.0) Neutrophils % (Manual) Pending Lymphocytes % (Manual) Pending Platelet Estimate Pending Platelet Morphology Pending Sodium Level 144 MMOL/L (136-145) Potassium Level 4.8 MMOL/L (3.5-5.1) Chloride Level 115 MMOL/L (98-107) H Carbon Dioxide Level 24 MMOL/L (21-32) Anion Gap 6 mmol/L (5-15) Blood Urea Nitrogen 30 mg/dL (7-18) H Creatinine 0.7 MG/DL (0.55-1.30) Estimat Glomerular Filtration Rate mL/min (>60) Glucose Level 111 MG/DL (74-106) H Calcium Level 9.6 MG/DL (8.5-10.1) Phosphorus Level 3.0 MG/DL (2.5-4.9) Magnesium Level 2.0 MG/DL (1.8-2.4) Total Bilirubin 0.3 MG/DL (0.2-1.0) Aspartate Amino Transf (AST/SGOT) 18 U/L (15-37) Alanine Aminotransferase (ALT/SGPT) 29 U/L (12-78) Alkaline Phosphatase 230 U/L (46-116) H C-Reactive Protein, Quantitative 3.5 mg/dL (0.00-0.90) H Pro-B-Type Natriuretic Peptide 2359 pg/mL (0-125) H Total Protein 4.5 G/DL (6.4-8.2) L Albumin 2.0 G/DL (3.4-5.0) L Globulin 2.5 g/dL Albumin/Globulin Ratio 0.8 (1.0-2.7) L Arterial Blood pH 7.482 (7.350-7.450) Arterial Blood Partial Pressure CO2 25.9 mmHg (35.0-45.0) L Arterial Blood Partial Pressure O2 121.1 mmHg (75.0-100.0) H Arterial Blood HCO3 18.9 mmol/L (22.0-26.0) L Arterial Blood Oxygen Saturation 98.3 % (95-100) Arterial Blood Base Excess -3.9 (-2-2) L Silas Test Positive Current Medications Medications (Trade) Dose Ordered Sig/Vane Route PRN Reason Start Time Stop Time Status Last Admin Dose Admin Acetaminophen (Tylenol) 650 mg Q4H PRN NG fever 05/04/19 09:30 05/31/19 12:44 05/04/19 10:00 Albuterol/ Ipratropium (Albuterol/ Ipratropium) 3 ml Q4HRT PRN HHN sob 05/13/19 10:30 05/18/19 10:29 Calcitonin [place] (Miacalcin) 1 sprays DAILY NASAL 05/04/19 09:00 06/03/19 08:59 05/13/19 08:23 Chlorhexidine Gluconate (Shanice-Hex 2%) 1 applic DAILY@1999 TOPIC 05/01/19 20:00 05/31/19 19:59 05/13/19 20:42 Dextrose (Dextrose 50%) 25 ml Q30M PRN IV Hypoglycemia 05/02/19 06:30 06/01/19 06:29 Dextrose (Dextrose 50%) 50 ml Q30M PRN IV Hypoglycemia 05/02/19 06:30 06/01/19 06:29 Heparin Sodium (Porcine) (Heparin 5000 units/ml) 5,000 units EVERY 12 HOURS SUBQ 05/01/19 21:00 05/31/19 20:59 05/13/19 20:43 Insulin Aspart (NovoLOG) EVERY 6 HOURS SUBQ 05/02/19 07:30 06/01/19 07:29 05/14/19 00:17 Lorazepam (Ativan) 0.25 mg Q6H PRN GT For Anxiety 05/14/19 06:30 05/21/19 06:29 Midodrine (Pro-Amatine) 5 mg THREE TIMES A DAY NG 05/06/19 13:00 06/04/19 12:59 05/13/19 18:02 Norepinephrine Bitartrate 4 mg/ Dextrose 254 ml @ 0 mls/hr Q24H IV 05/01/19 12:45 05/31/19 12:44 05/04/19 18:15 Ondansetron HCl (Zofran) 4 mg Q6H PRN IVP Nausea & Vomiting 05/01/19 12:45 05/31/19 12:44 Pantoprazole (Protonix) 40 mg Q12HR IV 05/01/19 21:00 06/01/19 08:59 05/13/19 20:42 Risperidone (RisperDAL) 0.25 mg QHS PRN GT Agitation 05/02/19 07:30 06/01/19 07:29 05/13/19 22:40 Jennifer Palm MD May 14, 2019 08:12
[2019-05-14] MEDS: Pantoprazole Inj IV SCH ×2 (08:17→20:38)
[2019-05-14] MEDS: Heparin 5000 units/ml inj SUBQ SCH ×2 (08:18→20:38)
--- NOTE | 2019-05-14 08:55 | NUR ---
RESPIRATORY NOTE: placed pt on CPAP PS8 fio2 30%. tolerating well at this time. will cont to monitor.
--- NOTE | 2019-05-14 09:00 | Pulmonolgy Critical Care Note ---
Critical Care - Asmt/Plan Assessment/Plan: ASSESSMENT Acute hypoxemic respiratory failure requiring intubation Septic shock Pneumonia with MRSA and Jefferson here UTI with Klebsiella MDR Acute kidney injury resolved Dysphagia feeding by G-tube Hyponatremia Diabetes mellitus COPD History of hypertension Anemia of chronic disease Hypercalcemia-resolved Functional quadriplegia Protein calorie malnutrition Major depressive disorder PLAN OF CARE ICU status off pressors, on midodrine, BP stable closely monitor hemodynamic status to keep mean aBP > 65 vent support ; pulmonary toilet f/up with ABG and CXR not tolerating weaning consider trach surgery on the case abx as per ID -completed DVT , GI prophylaxis ODALYS resolved monitor renal parameters , lytes, correct electrolytes as needed , avoid nephrotoxic KCL ass dc, all lytes stable after replacement photo intern on board s/p Aredia x2 ; on calcitonin Ca stabilized BS management with SSI monitor H&H with goal to keep hemoglobin above 7, s/p 1 u PRBC stool OB negative case discussed and evaluated by supervising physician Critical Care - Objective Last 24 Hour Vital Signs Date Time Temp Pulse Resp B/P (MAP) Pulse Ox O2 Delivery O2 Flow Rate FiO2 05/14/19 08:53 67 20 30 30 05/14/19 08:50 98 05/14/19 08:00 30 05/14/19 08:00 99.5 63 12 89/35 (53) 99 05/14/19 08:00 Mechanical Ventilator 05/14/19 07:08 69 13 96/36 (56) 99 05/14/19 07:08 68 13 30 05/14/19 07:00 67 13 88/38 (55) 100 05/14/19 06:00 65 13 89/59 (69) 100 05/14/19 05:12 65 13 30 05/14/19 05:00 66 15 100/35 (56) 100 05/14/19 04:07 59 12 91/38 (55) 99 05/14/19 04:00 30 05/14/19 04:00 98.4 59 12 88/39 (55) 99 05/14/19 04:00 Mechanical Ventilator 05/14/19 04:00 58 05/14/19 03:08 64 15 30 05/14/19 03:03 63 12 102/36 (58) 100 05/14/19 03:00 60 13 80/37 (51) 100 05/14/19 02:00 62 13 97/41 (59) 99 05/14/19 01:05 63 18 30 05/14/19 01:00 60 12 92/31 (51) 100 05/14/19 00:00 99.0 57 12 102/37 (58) 100 05/14/19 00:00 Mechanical Ventilator 05/14/19 00:00 61 05/13/19 23:00 66 17 115/37 (63) 99 05/13/19 22:45 68 25 30 05/13/19 22:00 68 19 102/39 (60) 100 05/13/19 21:09 65 12 30 05/13/19 21:00 66 15 102/39 (60) 100 05/13/19 20:00 Mechanical Ventilator 05/13/19 20:00 99.0 65 13 104/68 (80) 100 05/13/19 20:00 30 05/13/19 19:08 68 05/13/19 19:02 69 16 30 05/13/19 19:00 70 15 101/57 (72) 100 05/13/19 18:00 71 15 113/46 (68) 100 05/13/19 17:00 72 15 112/44 (66) 100 05/13/19 16:38 73 12 30 05/13/19 16:00 99.2 70 13 98/46 (63) 99 05/13/19 16:00 30 05/13/19 16:00 81 05/13/19 16:00 Mechanical Ventilator 05/13/19 15:29 72 12 30 05/13/19 15:00 74 14 104/50 (68) 100 05/13/19 14:00 76 14 93/43 (60) 100 05/13/19 13:00 79 14 105/40 (61) 100 05/13/19 12:46 76 14 30 05/13/19 12:45 105/40 05/13/19 12:00 97.9 63 13 91/34 (53) 100 05/13/19 12:00 67 05/13/19 12:00 30 05/13/19 12:00 Mechanical Ventilator 05/13/19 11:09 67 12 30 05/13/19 11:00 67 13 97/33 (54) 100 05/13/19 10:00 63 13 103/35 (57) 100 05/13/19 09:45 62 12 114/32 (59) 100 05/13/19 09:00 61 12 86/38 (54) 100 Objective: Status: sedated, on vent Condition: critical HEENT: atraumatic OP with ET intact, OP tube with TF Lungs: clear Heart: HR/BP stable, regular Abdomen: soft, non-tender Extremities: no C/C/E Accucheck: 110 Critical Care - Subjective ROS Limited/Unobtainable: Yes Interval Events: ABG stable this am failing weaning protocol afebrile, no leucocytosis off pressors K, Mg, P all stable after replacement 05/13 Condition: critical IV Access: PICC - LUE intact EKG Rhythm: Sinus Rhythm FI02: 30 Vent Support Breath Rate: 12 Vent Support Mode: CPAP Vent Tidal Volume: 500 Sputum Amount: Scant PEEP: 5.0 PIP: 13 Tube Feeding Amount: 50 I&O: Intake and Output 05/13/19 05/14/19 19:00 07:00 Intake Total 1630.000 ml 600 ml Output Total 1480 ml 620 ml Balance 150.000 ml -20 ml Free Water 50 ml 150 ml IV Total 980.000 ml Tube Feeding 600 ml 450 ml Output Urine Total 1380 ml 620 ml Stool Total 100 ml CXR: Suspected mild pulmonary vascular congestion. Accounting for technical differences there may be little to no change. ET-Tube: 7.5 ET Position: 22 Sandrita Avila [employer] May 14, 2019 09:00
--- NOTE | 2019-05-14 09:08 | General Progress Note ---
Assessment/Plan Problem List: (1) Acute respiratory failure ICD Codes: J96.00 - Acute respiratory failure, unspecified whether with hypoxia or hypercapnia SNOMED: 20282366 (2) Septic shock ICD Codes: A41.9 - Sepsis, unspecified organism; R65.21 - Severe sepsis with septic shock SNOMED: 83388862, 7853696 (3) Diabetes mellitus ICD Codes: E11.9 - Type 2 diabetes mellitus without complications SNOMED: 50951518 (4) Hypertension ICD Codes: I10 - Essential (primary) hypertension SNOMED: 14688233 (5) COPD (chronic obstructive pulmonary disease) ICD Codes: J44.9 - Chronic obstructive pulmonary disease, unspecified SNOMED: 82219301 (6) Anemia ICD Codes: D64.9 - Anemia, unspecified SNOMED: 839648084 (7) Schizophrenia ICD Codes: F20.9 - Schizophrenia, unspecified SNOMED: 12104952 Status: unchanged Assessment/Plan: vent abx bp bs control cbc bmp am ltach eval Subjective Constitutional: Reports: weakness Allergies: Coded Allergies: No Known Allergies (Unverified , 05/01/19) All Systems: reviewed and negative except above Subjective intubated sedated in icu Objective Last 24 Hour Vital Signs Date Time Temp Pulse Resp B/P (MAP) Pulse Ox O2 Delivery O2 Flow Rate FiO2 05/14/19 08:53 67 20 30 30 05/14/19 08:50 98 05/14/19 08:00 30 05/14/19 08:00 99.5 63 12 89/35 (53) 99 05/14/19 08:00 Mechanical Ventilator 05/14/19 07:08 69 13 96/36 (56) 99 05/14/19 07:08 68 13 30 05/14/19 07:00 67 13 88/38 (55) 100 05/14/19 06:00 65 13 89/59 (69) 100 05/14/19 05:12 65 13 30 05/14/19 05:00 66 15 100/35 (56) 100 05/14/19 04:07 59 12 91/38 (55) 99 05/14/19 04:00 30 05/14/19 04:00 98.4 59 12 88/39 (55) 99 05/14/19 04:00 Mechanical Ventilator 11/17/19 04:00 58 05/14/19 03:08 64 15 30 05/14/19 03:03 63 12 102/36 (58) 100 05/14/19 03:00 60 13 80/37 (51) 100 05/14/19 02:00 62 13 97/41 (59) 99 05/14/19 01:05 63 18 30 05/14/19 01:00 60 12 92/31 (51) 100 05/14/19 00:00 99.0 57 12 102/37 (58) 100 05/14/19 00:00 Mechanical Ventilator 05/14/19 00:00 61 05/13/19 23:00 66 17 115/37 (63) 99 05/13/19 22:45 68 25 30 05/13/19 22:00 68 19 102/39 (60) 100 05/13/19 21:09 65 12 30 05/13/19 21:00 66 15 102/39 (60) 100 05/13/19 20:00 Mechanical Ventilator 05/13/19 20:00 99.0 65 13 104/68 (80) 100 05/13/19 20:00 30 05/13/19 19:08 68 05/13/19 19:02 69 16 30 05/13/19 19:00 70 15 101/57 (72) 100 05/13/19 18:00 71 15 113/46 (68) 100 05/13/19 17:00 72 15 112/44 (66) 100 05/13/19 16:38 73 12 30 05/13/19 16:00 99.2 70 13 98/46 (63) 99 05/13/19 16:00 30 05/13/19 16:00 81 05/13/19 16:00 Mechanical Ventilator 05/13/19 15:29 72 12 30 05/13/19 15:00 74 14 104/50 (68) 100 05/13/19 14:00 76 14 93/43 (60) 100 05/13/19 13:00 79 14 105/40 (61) 100 05/13/19 12:46 76 14 30 05/13/19 12:45 105/40 05/13/19 12:00 97.9 63 13 91/34 (53) 100 05/13/19 12:00 67 05/13/19 12:00 30 05/13/19 12:00 Mechanical Ventilator 05/13/19 11:09 67 12 30 05/13/19 11:00 67 13 97/33 (54) 100 05/13/19 10:00 63 13 103/35 (57) 100 05/13/19 09:45 62 12 114/32 (59) 100 Intake and Output 05/13/19 05/14/19 18:59 06:59 Intake Total 1630.000 ml 600 ml Output Total 1450 ml 685 ml Balance 180.000 ml -85 ml Free Water 50 ml 150 ml IV Total 980.000 ml Tube Feeding 600 ml 450 ml Output Urine Total 1350 ml 685 ml Stool Total 100 ml Laboratory Tests 05/14/19 04:30: White Blood Count 7.2, Red Blood Count 2.71L, Hemoglobin 7.8L, Hematocrit 24.3L , Mean Corpuscular Volume 90, Mean Corpuscular Hemoglobin 29.0, Mean Corpuscular Hemoglobin Concent 32.3, Red Cell Distribution Width 15.9H, Platelet Count 184, Mean Platelet Volume 5.4L, Neutrophils (%) (Auto) , Lymphocytes (%) (Auto) , Monocytes (%) (Auto) , Eosinophils (%) (Auto) , Basophils (%) (Auto) , Differential Total Cells Counted 100, Neutrophils % ( Manual) 66, Lymphocytes % (Manual) 27, Monocytes % (Manual) 5, Eosinophils % ( Manual) 2, Basophils % (Manual) 0, Band Neutrophils 0, Platelet Estimate Adequate, Platelet Morphology Normal, Anisocytosis 1+, Sodium Level 144, Potassium Level 4.8, Chloride Level 115H, Carbon Dioxide Level 24, Anion Gap 6, Blood Urea Nitrogen 30H, Creatinine 0.7, Estimat Glomerular Filtration Rate , Glucose Level 111H, Calcium Level 9.6, Phosphorus Level 3.0, Magnesium Level 2.0 , Total Bilirubin 0.3, Aspartate Amino Transf (AST/SGOT) 18, Alanine Aminotransferase (ALT/SGPT) 29, Alkaline Phosphatase 230H, C-Reactive Protein, Quantitative 3.5H, Pro-B-Type Natriuretic Peptide 2359H, Total Protein 4.5L, Albumin 2.0L, Globulin 2.5, Albumin/Globulin Ratio 0.8L 05/14/19 07:55: Arterial Blood pH 7.482H, Arterial Blood Partial Pressure CO2 25.9L, Arterial Blood Partial Pressure O2 121.1H, Arterial Blood HCO3 18.9L, Arterial Blood Oxygen Saturation 98.3, Arterial Blood Base Excess -3.9L, Silas Test Positive Height (Feet): 5 Height (Inches): 7.00 Weight (Pounds): 122 General Appearance: lethargic EENT: normal ENT inspection Neck: normal alignment Cardiovascular: normal peripheral pulses, normal rate, regular rhythm Respiratory/Chest: chest wall non-tender, lungs clear, normal breath sounds Abdomen: normal bowel sounds, non tender, soft Extremities: normal inspection Edema: no edema noted Arm (L), no edema noted Arm (R), no edema noted Leg (L), no edema noted Leg (R), no edema noted Pedal (L), no edema noted Pedal (R), no edema noted Generalized Neurologic: motor weakness Skin: normal pigmentation, warm/dry Cosme Chong DO May 14, 2019 09:08
--- NOTE | 2019-05-14 09:29 | NUR ---
NURSE NOTES: Seen by Dr. Ho.
--- NOTE | 2019-05-14 10:05 | NUR ---
NURSE NOTES: Repositioned patient.
--- NOTE | 2019-05-14 10:16 | Nephrology Progress Note ---
Assessment/Plan Problem List: (1) Hypercalcemia Assessment: improving (2) Septic shock (3) Acute kidney injury (4) Acute respiratory failure (5) Dehydration (6) Anemia Assessment Acute renal failure Dehydration / HyperNatremia / HyperCalcemia Septic Shock Respiratory failure / COPD NSTEMI DM PEG Schizophrenia Anemia Plan stop KCl Aredia 90 mg IV and Nasal Calcitonin repeat Aredia 05/12 correct lytes prn Lasix trial Midodrine ? weaning vs Trach IV fluid change to 1/2 NS K and Phos and Mag supplement as needed monitor renal parameters and Calcium urine studies anemia au avoid Nephrotoxics Subjective ROS Limited/Unobtainable: Yes Objective Objective Last 24 Hour Vital Signs Date Time Temp Pulse Resp B/P (MAP) Pulse Ox O2 Delivery O2 Flow Rate FiO2 05/14/19 10:00 65 23 74/53 (60) 99 05/14/19 09:00 68 22 97/34 (55) 99 05/14/19 08:53 67 20 30 30 05/14/19 08:50 98 05/14/19 08:00 30 05/14/19 08:00 99.5 63 12 89/35 (53) 99 05/14/19 08:00 Mechanical Ventilator 05/14/19 08:00 65 05/14/19 07:08 69 13 96/36 (56) 99 05/14/19 07:08 68 13 30 05/14/19 07:00 67 13 88/38 (55) 100 05/14/19 06:00 65 13 89/59 (69) 100 05/14/19 05:12 65 13 30 05/14/19 05:00 66 15 100/35 (56) 100 05/14/19 04:07 59 12 91/38 (55) 99 05/14/19 04:00 30 05/14/19 04:00 98.4 59 12 88/39 (55) 99 05/14/19 04:00 Mechanical Ventilator 05/14/19 04:00 58 05/14/19 03:08 64 15 30 05/14/19 03:03 63 12 102/36 (58) 100 05/14/19 03:00 60 13 80/37 (51) 100 05/14/19 02:00 62 13 97/41 (59) 99 05/14/19 01:05 63 18 30 05/14/19 01:00 60 12 92/31 (51) 100 05/14/19 00:00 99.0 57 12 102/37 (58) 100 05/14/19 00:00 Mechanical Ventilator 05/14/19 00:00 61 05/13/19 23:00 66 17 115/37 (63) 99 05/13/19 22:45 68 25 30 05/13/19 22:00 68 19 102/39 (60) 100 05/13/19 21:09 65 12 30 05/13/19 21:00 66 15 102/39 (60) 100 05/13/19 20:00 Mechanical Ventilator 05/13/19 20:00 99.0 65 13 104/68 (80) 100 05/13/19 20:00 30 05/13/19 19:08 68 05/13/19 19:02 69 16 30 05/13/19 19:00 70 15 101/57 (72) 100 05/13/19 18:00 71 15 113/46 (68) 100 05/13/19 17:00 72 15 112/44 (66) 100 05/13/19 16:38 73 12 30 05/13/19 16:00 99.2 70 13 98/46 (63) 99 05/13/19 16:00 30 05/13/19 16:00 81 05/13/19 16:00 Mechanical Ventilator 05/13/19 15:29 72 12 30 05/13/19 15:00 74 14 104/50 (68) 100 05/13/19 14:00 76 14 93/43 (60) 100 05/13/19 13:00 79 14 105/40 (61) 100 05/13/19 12:46 76 14 30 05/13/19 12:45 105/40 05/13/19 12:00 97.9 63 13 91/34 (53) 100 05/13/19 12:00 67 05/13/19 12:00 30 05/13/19 12:00 Mechanical Ventilator 05/13/19 11:09 67 12 30 05/13/19 11:00 67 13 97/33 (54) 100 Intake and Output 05/13/19 05/14/19 18:59 06:59 Intake Total 1630.000 ml 600 ml Output Total 1450 ml 685 ml Balance 180.000 ml -85 ml Free Water 50 ml 150 ml IV Total 980.000 ml Tube Feeding 600 ml 450 ml Output Urine Total 1350 ml 685 ml Stool Total 100 ml Laboratory Tests 05/14/19 04:30: White Blood Count 7.2, Red Blood Count 2.71L, Hemoglobin 7.8L, Hematocrit 24.3L , Mean Corpuscular Volume 90, Mean Corpuscular Hemoglobin 29.0, Mean Corpuscular Hemoglobin Concent 32.3, Red Cell Distribution Width 15.9H, Platelet Count 184, Mean Platelet Volume 5.4L, Neutrophils (%) (Auto) , Lymphocytes (%) (Auto) , Monocytes (%) (Auto) , Eosinophils (%) (Auto) , Basophils (%) (Auto) , Differential Total Cells Counted 100, Neutrophils % ( Manual) 66, Lymphocytes % (Manual) 27, Monocytes % (Manual) 5, Eosinophils % ( Manual) 2, Basophils % (Manual) 0, Band Neutrophils 0, Platelet Estimate Adequate, Platelet Morphology Normal, Anisocytosis 1+, Sodium Level 144, Potassium Level 4.8, Chloride Level 115H, Carbon Dioxide Level 24, Anion Gap 6, Blood Urea Nitrogen 30H, Creatinine 0.7, Estimat Glomerular Filtration Rate , Glucose Level 111H, Calcium Level 9.6, Phosphorus Level 3.0, Magnesium Level 2.0 , Total Bilirubin 0.3, Aspartate Amino Transf (AST/SGOT) 18, Alanine Aminotransferase (ALT/SGPT) 29, Alkaline Phosphatase 230H, C-Reactive Protein, Quantitative 3.5H, Pro-B-Type Natriuretic Peptide 2359H, Total Protein 4.5L, Albumin 2.0L, Globulin 2.5, Albumin/Globulin Ratio 0.8L 05/14/19 07:55: Arterial Blood pH 7.482H, Arterial Blood Partial Pressure CO2 25.9L, Arterial Blood Partial Pressure O2 121.1H, Arterial Blood HCO3 18.9L, Arterial Blood Oxygen Saturation 98.3, Arterial Blood Base Excess -3.9L, Silas Test Positive Height (Feet): 5 Height (Inches): 7.00 Weight (Pounds): 122 General Appearance: no apparent distress Objective no change Fox Ho MD May 14, 2019 10:16
--- NOTE | 2019-05-14 10:27 | Diagnostic Imaging Report ---
EXAM: XR Chest, 1 View CLINICAL HISTORY: SOB TECHNIQUE: Frontal view of the chest. COMPARISON: Chest radiograph on 05 11 2019 FINDINGS: Hardware: Stable endotracheal tube, terminating in the region of the lower thoracic trachea above the guille. Stable left-sided PICC line. Lungs pleura: Slightly increased small bilateral pleural effusions. Similar pulmonary edema and or infectious inflammatory process. Heart mediastinum: Atherosclerotic calcifications in the aorta. No cardiomegaly. Soft tissues: Unremarkable. Bones: No acute fracture. Degenerative changes of the acromioclavicular joints and spine. Upper abdomen: Normal. IMPRESSION: 1. Slightly increased small bilateral pleural effusions. Similar pulmonary edema and or infectious inflammatory process. 2. Stable endotracheal tube and left-sided PICC line.
[2019-05-14] MEDS ORDERED: NS 275ml ONE (10:55)
[2019-05-14] MEDS ORDERED: Tubing IV Secondary IV ONE (10:55)
--- NOTE | 2019-05-14 11:14 | Surgery Progress Note ---
Surgery Progress Note Subjective Additional Comments eyes open to command so far has been tolerating 1.5hr of weaning trial today Objective Last 24 Hour Vital Signs Date Time Temp Pulse Resp B/P (MAP) Pulse Ox O2 Delivery O2 Flow Rate FiO2 05/14/19 10:42 61 23 30 05/14/19 10:07 72 15 119/41 (67) 99 05/14/19 10:00 65 23 74/53 (60) 99 05/14/19 09:00 68 22 97/34 (55) 99 05/14/19 08:53 67 20 30 30 05/14/19 08:50 98 05/14/19 08:00 30 05/14/19 08:00 99.5 63 12 89/35 (53) 99 05/14/19 08:00 Mechanical Ventilator 05/14/19 08:00 65 05/14/19 07:08 69 13 96/36 (56) 99 05/14/19 07:08 68 13 30 05/14/19 07:00 67 13 88/38 (55) 100 05/14/19 06:00 65 13 89/59 (69) 100 05/14/19 05:12 65 13 30 05/14/19 05:00 66 15 100/35 (56) 100 05/14/19 04:07 59 12 91/38 (55) 99 05/14/19 04:00 30 05/14/19 04:00 98.4 59 12 88/39 (55) 99 05/14/19 04:00 Mechanical Ventilator 05/14/19 04:00 58 05/14/19 03:08 64 15 30 05/14/19 03:03 63 12 102/36 (58) 100 05/14/19 03:00 60 13 80/37 (51) 100 05/14/19 02:00 62 13 97/41 (59) 99 05/14/19 01:05 63 18 30 05/14/19 01:00 60 12 92/31 (51) 100 05/14/19 00:00 99.0 57 12 102/37 (58) 100 05/14/19 00:00 Mechanical Ventilator 05/14/19 00:00 61 05/13/19 23:00 66 17 115/37 (63) 99 05/13/19 22:45 68 25 30 05/13/19 22:00 68 19 102/39 (60) 100 05/13/19 21:09 65 12 30 05/13/19 21:00 66 15 102/39 (60) 100 05/13/19 20:00 Mechanical Ventilator 05/13/19 20:00 99.0 65 13 104/68 (80) 100 05/13/19 20:00 30 05/13/19 19:08 68 05/13/19 19:02 69 16 30 05/13/19 19:00 70 15 101/57 (72) 100 05/13/19 18:00 71 15 113/46 (68) 100 05/13/19 17:00 72 15 112/44 (66) 100 05/13/19 16:38 73 12 30 05/13/19 16:00 99.2 70 13 98/46 (63) 99 05/13/19 16:00 30 05/13/19 16:00 81 05/13/19 16:00 Mechanical Ventilator 05/13/19 15:29 72 12 30 05/13/19 15:00 74 14 104/50 (68) 100 05/13/19 14:00 76 14 93/43 (60) 100 05/13/19 13:00 79 14 105/40 (61) 100 05/13/19 12:46 76 14 30 05/13/19 12:45 105/40 05/13/19 12:00 97.9 63 13 91/34 (53) 100 05/13/19 12:00 67 05/13/19 12:00 30 05/13/19 12:00 Mechanical Ventilator I&O Intake and Output 05/13/19 05/14/19 18:59 06:59 Intake Total 1630.000 ml 600 ml Output Total 1450 ml 685 ml Balance 180.000 ml -85 ml Free Water 50 ml 150 ml IV Total 980.000 ml Tube Feeding 600 ml 450 ml Output Urine Total 1350 ml 685 ml Stool Total 100 ml Dressing: other Wound: other Drains: other Cardiovascular: RSR Respiratory: decreased breath sounds Abdomen: soft, non-distended, decreased bowel sounds Extremities: no cyanosis Laboratory Tests Test 05/14/19 04:30 05/14/19 07:55 White Blood Count 7.2 K/UL (4.8-10.8) Red Blood Count 2.71 M/UL (4.20-5.40) L Hemoglobin 7.8 G/DL (12.0-16.0) L Hematocrit 24.3 % (37.0-47.0) L Mean Corpuscular Volume 90 FL (80-99) Mean Corpuscular Hemoglobin 29.0 PG (27.0-31.0) Mean Corpuscular Hemoglobin Concent 32.3 G/DL (32.0-36.0) Red Cell Distribution Width 15.9 % (11.6-14.8) H Platelet Count 184 K/UL (150-450) Mean Platelet Volume 5.4 FL (6.5-10.1) L Neutrophils (%) (Auto) % (45.0-75.0) Lymphocytes (%) (Auto) % (20.0-45.0) Monocytes (%) (Auto) % (1.0-10.0) Eosinophils (%) (Auto) % (0.0-3.0) Basophils (%) (Auto) % (0.0-2.0) Differential Total Cells Counted 100 Neutrophils % (Manual) 66 % (45-75) Lymphocytes % (Manual) 27 % (20-45) Monocytes % (Manual) 5 % (1-10) Eosinophils % (Manual) 2 % (0-3) Basophils % (Manual) 0 % (0-2) Band Neutrophils 0 % (0-8) Platelet Estimate Adequate Platelet Morphology Normal Anisocytosis 1+ Sodium Level 144 MMOL/L (136-145) Potassium Level 4.8 MMOL/L (3.5-5.1) Chloride Level 115 MMOL/L (98-107) H Carbon Dioxide Level 24 MMOL/L (21-32) Anion Gap 6 mmol/L (5-15) Blood Urea Nitrogen 30 mg/dL (7-18) H Creatinine 0.7 MG/DL (0.55-1.30) Estimat Glomerular Filtration Rate mL/min (>60) Glucose Level 111 MG/DL (74-106) H Calcium Level 9.6 MG/DL (8.5-10.1) Phosphorus Level 3.0 MG/DL (2.5-4.9) Magnesium Level 2.0 MG/DL (1.8-2.4) Total Bilirubin 0.3 MG/DL (0.2-1.0) Aspartate Amino Transf (AST/SGOT) 18 U/L (15-37) Alanine Aminotransferase (ALT/SGPT) 29 U/L (12-78) Alkaline Phosphatase 230 U/L (46-116) H C-Reactive Protein, Quantitative 3.5 mg/dL (0.00-0.90) H Pro-B-Type Natriuretic Peptide 2359 pg/mL (0-125) H Total Protein 4.5 G/DL (6.4-8.2) L Albumin 2.0 G/DL (3.4-5.0) L Globulin 2.5 g/dL Albumin/Globulin Ratio 0.8 (1.0-2.7) L Arterial Blood pH 7.482 (7.350-7.450) Arterial Blood Partial Pressure CO2 25.9 mmHg (35.0-45.0) L Arterial Blood Partial Pressure O2 121.1 mmHg (75.0-100.0) H Arterial Blood HCO3 18.9 mmol/L (22.0-26.0) L Arterial Blood Oxygen Saturation 98.3 % (95-100) Arterial Blood Base Excess -3.9 (-2-2) L Silas Test Positive Plan Problems: (1) Sacral decubitus ulcer, stage III Assessment & Plan: Patient presented on admission with multiple pressure injuries noted. Patient seen by team during admission and I was called on to evaluate patient Full Thickness Stage III Pressure injury sacrum. Base of wound 100% necrotic with red margins(L)2.5cm x (W)2.7cm with surrounding maroon and indurated borders (L)7.5cm x (W)8.5cm. Periwound soft and with edema. Maroon and indurated area noted to R buttocks. Non-blanching erythema noted to R trochanteric.(L)6.5cm x (W)7.5cm. Elongated wound noted to medial/posterior R thigh(L)0.6cm x (W)5.2cm. L heel boggy with non-blanching erythema. Non-Blanchable erythema R heel without fluctuance. Recommendations: Wash wounds daily with NS or soap/water Apply therahoney or hydrogel impregnated gauze to sacral wound, cover with foam dressing daily and prn saturation Will need to monitor for incontinence as she is having loose stools and need diligent care as can worsen wound Apply foam dressing to R hip, change q3 days bilateral heel foam dressings APM/SOILA Mattress overlay. Reposition at least every 2hours or as tolerated. Off-load heels with Pillow. nutritional optimization will follow with recs thank you (2) Malnutrition Assessment & Plan: DAILY ESTIMATED NEEDS: Needs based on Critical care, wounds; 48.6kg 22- 30 kcals/kg 1384-2454 total kcals 1.25-2 g protein/kg 61-97 g total protein 25-30 mL/kg 6825-6994 total fluid mLs NUTRITION DIAGNOSIS: 1) Increased kcal and pro needs r/t wound healing AEB pt adm w/ multiple wounds, including full thickness sacral wounds, refer to WC eval. 2) Swallowing difficulty r/t respiratory status AEB pt is intubated, Peg dep, TF at low rate for elev residuals. CURRENT TF:Glucerna 1.2 @50-> now @20ml/hr ENTERAL NUTRITION RECOMMENDATIONS: VITAL AF 1.2 @ 45mL/hr x 24 hrs to provide 1080mL, 1296kcal, 81g pro, 876mL free H2O With continued elev residuals, rec TF change to VITAL 1.2 w/ goal rate of 45ml/ hr. - Start @15ml/hr until tolerated w/ no to little residuals. Advance 10ml/hr q4-6 hrs to goal rate TOLERATED. - Flush per MD. HOB over 30 degrees ADDITIONAL RECOMMENDATIONS: 1) Per SNF: 107 lbs, 60 inches 2) When pt is stable, see TF recs above. 3) Wound care: Add TANYA BID + Vit C 250mg BID -> Hold Tanya BID until TF is better tolerated w/ low to no residuals 4) Monitor lytes-> replete as needed 5) With continued elevated blood glucose, rec long acting insulin Monitor BG w/ active TF order (3) Failure to thrive in adult (4) Feeding by G-tube (5) Septic shock Assessment & Plan: labs noted exam as above wean vent as tolerated nutritional optimization trend labs abx as per ID will follow with recs will likely need trach soon as not weaning from vent thank you (6) Dehydration Ralph Roth May 14, 2019 11:14
--- NOTE | 2019-05-14 11:50 | NUR ---
NURSE NOTES: Patient is tolerating well with CPAP PS8 with FiO2 30%. Will continue plan of care.
--- NOTE | 2019-05-14 12:43 | NUR ---
NURSE NOTES: Patient has been tolerated with CPAP w/ PS 8 and FiO2 30% for 4 hours. Put her back to AC mode by RT. Will continue plan of care.
--- NOTE | 2019-05-14 13:11 | General Progress Note ---
Assessment/Plan Status: unchanged Assessment/Plan: Assessment/Plan Problems: (1) Septic shock ICD Codes: A41.9 - Sepsis, unspecified organism; R65.21 - Severe sepsis with septic shock SNOMED: 14865491, 7253877 (2) Feeding by G-tube, dysphagia ICD Codes: Z93.1 - Gastrostomy status SNOMED: 965452417, 869304407, 255375497 (3) Diabetes mellitus ICD Codes: E11.9 - Type 2 diabetes mellitus without complications SNOMED: 46084492 (4) Anemia ICD Codes: D64.9 - Anemia, unspecified SNOMED: 978611039 Assessment/Plan No plans for any GI procedures at this given time. occult blood stool to evaluate for any GI bleed, negative Monitor H&H, PRN transfusions PPI GTFs Electrolyte correction, increase free water flushes for hypernatremia GT site care daily and as needed We will follow on a daily basis with additional recommendation add erythromycin for elevated residuals, TF tolerated Subjective Allergies: Coded Allergies: No Known Allergies (Unverified , 05/01/19) Subjective Seen in ICU intubated eyes open D/w hospital staff pharmacist Objective Last 24 Hour Vital Signs Date Time Temp Pulse Resp B/P (MAP) Pulse Ox O2 Delivery O2 Flow Rate FiO2 05/14/19 12:40 30 05/14/19 12:40 55 13 30 05/14/19 12:00 Mechanical Ventilator 05/14/19 12:00 60 05/14/19 12:00 30 05/14/19 12:00 99.2 68 20 113/43 (66) 100 05/14/19 11:00 61 22 91/32 (51) 99 05/14/19 10:42 61 23 30 05/14/19 10:07 72 15 119/41 (67) 99 05/14/19 10:00 65 23 74/53 (60) 99 05/14/19 09:00 68 22 97/34 (55) 99 05/14/19 08:53 67 20 30 30 05/14/19 08:50 30 05/14/19 08:50 98 05/14/19 08:00 30 05/14/19 08:00 99.5 63 12 89/35 (53) 99 05/14/19 08:00 Mechanical Ventilator 05/14/19 08:00 65 05/14/19 07:08 69 13 96/36 (56) 99 05/14/19 07:08 68 13 30 05/14/19 07:00 67 13 88/38 (55) 100 05/14/19 06:00 65 13 89/59 (69) 100 05/14/19 05:12 65 13 30 05/14/19 05:00 66 15 100/35 (56) 100 05/14/19 04:07 59 12 91/38 (55) 99 05/14/19 04:00 30 05/14/19 04:00 98.4 59 12 88/39 (55) 99 05/14/19 04:00 Mechanical Ventilator 05/14/19 04:00 58 05/14/19 03:08 64 15 30 05/14/19 03:03 63 12 102/36 (58) 100 05/14/19 03:00 60 13 80/37 (51) 100 05/14/19 02:00 62 13 97/41 (59) 99 05/14/19 01:05 63 18 30 05/14/19 01:00 60 12 92/31 (51) 100 05/14/19 00:00 99.0 57 12 102/37 (58) 100 05/14/19 00:00 Mechanical Ventilator 05/14/19 00:00 61 05/13/19 23:00 66 17 115/37 (63) 99 05/13/19 22:45 68 25 30 05/13/19 22:00 68 19 102/39 (60) 100 05/13/19 21:09 65 12 30 05/13/19 21:00 66 15 102/39 (60) 100 05/13/19 20:00 Mechanical Ventilator 05/13/19 20:00 99.0 65 13 104/68 (80) 100 05/13/19 20:00 30 05/13/19 19:08 68 05/13/19 19:02 69 16 30 05/13/19 19:00 70 15 101/57 (72) 100 05/13/19 18:00 71 15 113/46 (68) 100 05/13/19 17:00 72 15 112/44 (66) 100 05/13/19 16:38 73 12 30 05/13/19 16:00 99.2 70 13 98/46 (63) 99 05/13/19 16:00 30 05/13/19 16:00 81 05/13/19 16:00 Mechanical Ventilator 05/13/19 15:29 72 12 30 05/13/19 15:00 74 14 104/50 (68) 100 05/13/19 14:00 76 14 93/43 (60) 100 Intake and Output 05/13/19 05/14/19 18:59 06:59 Intake Total 1630.000 ml 600 ml Output Total 1450 ml 685 ml Balance 180.000 ml -85 ml Free Water 50 ml 150 ml IV Total 980.000 ml Tube Feeding 600 ml 450 ml Output Urine Total 1350 ml 685 ml Stool Total 100 ml Laboratory Tests 05/14/19 04:30: White Blood Count 7.2, Red Blood Count 2.71L, Hemoglobin 7.8L, Hematocrit 24.3L , Mean Corpuscular Volume 90, Mean Corpuscular Hemoglobin 29.0, Mean Corpuscular Hemoglobin Concent 32.3, Red Cell Distribution Width 15.9H, Platelet Count 184, Mean Platelet Volume 5.4L, Neutrophils (%) (Auto) , Lymphocytes (%) (Auto) , Monocytes (%) (Auto) , Eosinophils (%) (Auto) , Basophils (%) (Auto) , Differential Total Cells Counted 100, Neutrophils % ( Manual) 66, Lymphocytes % (Manual) 27, Monocytes % (Manual) 5, Eosinophils % ( Manual) 2, Basophils % (Manual) 0, Band Neutrophils 0, Platelet Estimate Adequate, Platelet Morphology Normal, Anisocytosis 1+, Sodium Level 144, Potassium Level 4.8, Chloride Level 115H, Carbon Dioxide Level 24, Anion Gap 6, Blood Urea Nitrogen 30H, Creatinine 0.7, Estimat Glomerular Filtration Rate , Glucose Level 111H, Calcium Level 9.6, Phosphorus Level 3.0, Magnesium Level 2.0 , Total Bilirubin 0.3, Aspartate Amino Transf (AST/SGOT) 18, Alanine Aminotransferase (ALT/SGPT) 29, Alkaline Phosphatase 230H, C-Reactive Protein, Quantitative 3.5H, Pro-B-Type Natriuretic Peptide 2359H, Total Protein 4.5L, Albumin 2.0L, Globulin 2.5, Albumin/Globulin Ratio 0.8L 05/14/19 07:55: Arterial Blood pH 7.482H, Arterial Blood Partial Pressure CO2 25.9L, Arterial Blood Partial Pressure O2 121.1H, Arterial Blood HCO3 18.9L, Arterial Blood Oxygen Saturation 98.3, Arterial Blood Base Excess -3.9L, Silas Test Positive Height (Feet): 5 Height (Inches): 7.00 Weight (Pounds): 122 Objective WDWN NCAT Supple CTA RR abd soft , (+) GT no edema non communicative Katherine Barber MD May 14, 2019 13:11
--- NOTE | 2019-05-14 14:01 | NUR ---
NURSE NOTES: Repositioned patient.
--- NOTE | 2019-05-14 16:02 | NUR ---
NURSE NOTES: Repositioned patient and oral care provided.
--- NOTE | 2019-05-14 18:02 | NUR ---
NURSE NOTES: Due medication given. No change in condition.
--- NOTE | 2019-05-14 18:57 | NUR ---
RESPIRATORY NOTE: Received pt on AC 12, 500VT, 30%, PEEP +5. Pt intubated w/ ETT 7.5 @ 22cm lipline, secured by anchorfast. Pt is awake/disoriented, responds to stimuli. B/S jamie. rhonchi, sxn small to moderate amounts of thick/thin/frothy, pale-yellow secretions. Bite block still in place. Pt off mittens at this time, RN aware. Vent plugged into red outlet, ambubag at bedside. Pt in no apparent distress at this time. Will continue to monitor pt.
--- NOTE | 2019-05-14 19:19 | NUR ---
HAND-OFF: Report given to MONA Trammell. Endorsed plan of care.
--- NOTE | 2019-05-14 19:22 | NUR ---
NURSE NOTES: Received report from MONA Ibarra. Patient in bed awake, watching TV. Orally intubated, ETT 7.5/22cm at lip line. AC 16, TV 500, FIO2 30%, PEEP 5. O2 sat 100%. No s/s of cardiac and acute distress noted. Hold Glucerna 1.2 at 50cc for 50cc residual. HOB elevated . Hilario intact and draining with yellow color urine. Rectal tube intact . Left upper arm PICC intact and clean with TKO. bed alarm on. bed lock and in low position. Rectal tube intact. dressing on sacral area intact. On P200 mattress for wound management. bed alarm on. bed lock and in low position. no s/s of hypo/hyperglycemia.will continue plan of care.
[2019-05-14] MEDS: Dyna-Hex 2% Top Sol 2oz TOPIC SCH (20:37)
--- NOTE | 2019-05-14 21:15 | NUR ---
NURSE NOTES: Patient in bed anxiety biting tubing and holding the tubing reality orientation provided, encouraged patient to verbalize needs, fears and feelings to staff, repositioned, TV and talk therapy provided not effective. Ativan tab via GT given effective.
--- NOTE | 2019-05-14 23:15 | NUR ---
NURSE NOTES: patient in bed resting, HOB elevated. No s/s of acute distress noted. Contact isolation maintained and observed.
[2019-05-15] VITALS (24 sets, daily range): BP systolic 88–138; BP diastolic 32–79
--- NOTE | 2019-05-15 00:15 | Progress Note ---
DATE: 05/14/2019 SUBJECTIVE: This is a 78-year-old female patient with respiratory failu re, but this patient has altered mental status, confusion, and she has got decline in cognition below her baseline. So, she does require daily consultation as far as the patient's she has respiratory failure, decline in cognition below baseline, mood lability, and altered mental status. That is why, attending has requested daily psychiatric consultation. DIAGNOSIS: Major depressive disorder, severe, recurrent with psychotic features, rule out dementia with psychosis. PLAN: Treat her with Risperdal 0.25 mg per G-tube at bedtime p.r.n. anxiety and agitation. Chart was reviewed and discussed with staff and she was seen and assessed in her room. Risperdal 0.25 mg per G-tube at bedtime p.r.n. agitation. The patient a dose of Ativan and a dose of 0.25 milligram per G-tube every six hours. Risperdal 0.25 mg per G-tube every 6 hours p.r.n. anxiety and agitation. A 20 minutes of behavioral management provided with . Kristen Rodgres M.D. DR: SAMANTHA JOB#: [id number] CC:
--- NOTE | 2019-05-15 01:15 | NUR ---
NURSE NOTES: Bed bath given tolerated well. No s/s of acute distress noted. Oral care done and suctioned patient. HOB elevated. On P200 mattress for wound management. no s/s of hypo/hyperglycemia.
[2019-05-15 05:16] LABS: HEMATOCRIT 22.8 % (37.0-47.0); HEMOGLOBIN 7.8 G/DL (12.0-16.0); MEAN CORPUSCULAR VOLUME 87 FL (80-99); PLATELET COUNT 165 K/UL (150-450); RED BLOOD COUNT 2.61 M/UL (4.20-5.40); RED CELL DISTRIBUTION WIDTH 14.2 % (11.6-14.8); WHITE BLOOD COUNT 6.7 K/UL (4.8-10.8)
[2019-05-15 05:28] LABS: ALANINE AMINOTRANSFERASE 32 U/L (12-78); ALBUMIN 1.9 G/DL (3.4-5.0); ALBUMIN/GLOBULIN RATIO 0.7 (1.0-2.7); ALKALINE PHOSPHATASE 232 U/L (46-116); ANION GAP 6 mmol/L (5-15); ASPARTATE AMINO TRANSFERASE 23 U/L (15-37); BILIRUBIN,TOTAL 0.3 MG/DL (0.2-1.0); BLOOD UREA NITROGEN 25 mg/dL (7-18); CALCIUM 9.3 MG/DL (8.5-10.1); CARBON DIOXIDE 24 MMOL/L (21-32); CHLORIDE 114 MMOL/L (98-107); CREATININE 0.6 MG/DL (0.55-1.30); PHOSPHORUS 2.2 MG/DL (2.5-4.9); POTASSIUM 4.9 MMOL/L (3.5-5.1); SODIUM 144 MMOL/L (136-145)
[2019-05-15] MEDS: NovoLOG Insulin Flexpen SUBQ SCH ×5 (05:52→23:38)
--- NOTE | 2019-05-15 07:02 | NUR ---
HAND-OFF: Report given to MONA Kruger.
--- NOTE | 2019-05-15 07:03 | NUR ---
NURSE NOTES: Received patient from MONA Trammell. Patient blood pressure 108/50, HR 67 beats per minute in normal sinus rhythm. Patient opens eyes but does not track or follow commands. Patient orally intubated with ET tube of 7.5cm with 22cm at the lip line. Patient showing sinus rhythm on the desk monitor. Ventilator setting AC 12, tidal volume 500, FiO2 30%, PEEP 5. Patient tolerating setting with no sign of acute distress. RR 14 and SpO2 100%. Patient has gastrostomy tube that is patent, asymptomatic, and running Glucerna 1.2 at 50mL/hr at this time. Patient has rectal tube that is patent, asymptomatic, and draining at this time. Patient has kwon for urine retention that is patent, asymptomatic, and draining at this time. Patient has sacral full thickness pressure wound and perineal excoriation. Patient on low air loss mattress at this time. Patient has right upper arm PICC line that is patent, asymptomatic, and saline locked at this time. Dressing change due today. Will follow up. Patient has low magnesium of 1.7 this morning. Will follow up with Dr Ho when he rounds on the patient. Bed in low position with bed alarm on and call light in reach at this time. Patient repositioned and oral care done at this time. Patient has order for ventilator weaning this morning. Will follow up with RT.
[2019-05-15] MEDS: Pantoprazole Inj IV SCH ×2 (08:42→20:48)
[2019-05-15] MEDS: Heparin 5000 units/ml inj SUBQ SCH ×2 (08:45→20:49)
--- NOTE | 2019-05-15 09:45 | NUR ---
NURSE NOTES: Patient on CPAP pressure support 8 with volume 300-400mL and RR 25 at this time. Will continue to monitor for signs of respiratory distress. Addendum: 05/15/19 at 0950 by Saskia Galvez RN HR 70 beats per minute and showing sinus rhythm on the library monitor with blood pressure 102/45.
--- NOTE | 2019-05-15 09:51 | General Progress Note ---
Assessment/Plan Problem List: (1) Acute respiratory failure ICD Codes: J96.00 - Acute respiratory failure, unspecified whether with hypoxia or hypercapnia SNOMED: 64476995 (2) Septic shock ICD Codes: A41.9 - Sepsis, unspecified organism; R65.21 - Severe sepsis with septic shock SNOMED: 84441669, 7098630 (3) Diabetes mellitus ICD Codes: E11.9 - Type 2 diabetes mellitus without complications SNOMED: 21191022 (4) Hypertension ICD Codes: I10 - Essential (primary) hypertension SNOMED: 94787742 (5) COPD (chronic obstructive pulmonary disease) ICD Codes: J44.9 - Chronic obstructive pulmonary disease, unspecified SNOMED: 53305747 (6) Anemia ICD Codes: D64.9 - Anemia, unspecified SNOMED: 291404102 (7) Schizophrenia ICD Codes: F20.9 - Schizophrenia, unspecified SNOMED: 59080443 Status: unchanged Assessment/Plan: vent abx bp bs control cbc bmp am ltach eval Subjective Constitutional: Reports: weakness Allergies: Coded Allergies: No Known Allergies (Unverified , 05/01/19) All Systems: reviewed and negative except above Subjective intubated sedated in icu Objective Last 24 Hour Vital Signs Date Time Temp Pulse Resp B/P (MAP) Pulse Ox O2 Delivery O2 Flow Rate FiO2 05/15/19 09:41 70 16 30 05/15/19 09:41 100 05/15/19 08:00 30 05/15/19 08:00 Mechanical Ventilator 05/15/19 07:49 65 14 30 05/15/19 07:00 66 13 94/79 (84) 100 05/15/19 06:00 57 12 104/47 (66) 100 05/15/19 05:10 61 12 30 05/15/19 05:00 63 13 106/51 (69) 100 05/15/19 04:00 30 05/15/19 04:00 64 15 99/39 (59) 100 05/15/19 04:00 Mechanical Ventilator 05/15/19 04:00 65 05/15/19 03:06 57 12 30 05/15/19 03:00 55 12 88/36 (53) 100 05/15/19 02:00 64 14 119/57 (77) 100 05/15/19 01:00 61 14 103/50 (67) 100 05/15/19 00:51 63 13 30 05/15/19 00:00 Mechanical Ventilator 05/15/19 00:00 98.6 63 13 109/45 (66) 100 05/14/19 23:20 58 12 30 05/14/19 23:00 63 14 110/36 (60) 100 05/14/19 22:00 63 13 114/44 (67) 99 05/14/19 21:00 60 13 104/34 (57) 100 05/14/19 21:00 60 12 30 05/14/19 20:00 63 05/14/19 20:00 99.0 63 14 115/39 (64) 99 05/14/19 20:00 Mechanical Ventilator 05/14/19 20:00 30 05/14/19 19:00 67 16 105/61 (76) 100 05/14/19 18:55 64 15 30 05/14/19 18:00 68 16 109/37 (61) 100 05/14/19 17:00 62 13 91/44 (60) 100 05/14/19 16:42 60 14 30 05/14/19 16:00 61 05/14/19 16:00 Mechanical Ventilator 05/14/19 16:00 98.7 61 13 95/58 (70) 98 05/14/19 15:14 70 17 116/35 (62) 100 05/14/19 15:00 61 13 88/66 (73) 99 05/14/19 14:39 58 13 30 05/14/19 14:00 58 13 101/33 (55) 100 05/14/19 13:00 59 12 113/41 (65) 100 05/14/19 12:40 30 05/14/19 12:40 55 13 30 05/14/19 12:00 Mechanical Ventilator 05/14/19 12:00 60 05/14/19 12:00 30 05/14/19 12:00 99.2 68 20 113/43 (66) 100 05/14/19 11:00 61 22 91/32 (51) 99 05/14/19 10:42 61 23 30 05/14/19 10:07 72 15 119/41 (67) 99 05/14/19 10:00 65 23 74/53 (60) 99 Intake and Output 05/14/19 05/15/19 19:00 07:00 Intake Total 500 ml 760 ml Output Total 760 ml 465 ml Balance -260 ml 295 ml Free Water 100 ml 100 ml Tube Feeding 400 ml 600 ml Other 60 ml Output Urine Total 610 ml 465 ml Stool Total 150 ml # Bowel Movements 100 Laboratory Tests 05/15/19 04:30: White Blood Count 6.7, Red Blood Count 2.61L, Hemoglobin 7.8L, Hematocrit 22.8L , Mean Corpuscular Volume 87, Mean Corpuscular Hemoglobin 30.0, Mean Corpuscular Hemoglobin Concent 34.3, Red Cell Distribution Width 14.2, Platelet Count 165, Mean Platelet Volume 5.7L, Neutrophils (%) (Auto) , Lymphocytes (%) ( Auto) , Monocytes (%) (Auto) , Eosinophils (%) (Auto) , Basophils (%) (Auto) , Sodium Level 144, Potassium Level 4.9, Chloride Level 114H, Carbon Dioxide Level 24, Anion Gap 6, Blood Urea Nitrogen 25H, Creatinine 0.6, Estimat Glomerular Filtration Rate , Glucose Level 130H, Calcium Level 9.3, Phosphorus Level 2.2L, Magnesium Level 1.7L, Total Bilirubin 0.3, Aspartate Amino Transf ( AST/SGOT) 23, Alanine Aminotransferase (ALT/SGPT) 32, Alkaline Phosphatase 232H , Total Protein 4.5L, Albumin 1.9L, Globulin 2.6, Albumin/Globulin Ratio 0.7L Height (Feet): 5 Height (Inches): 7.00 Weight (Pounds): 122 General Appearance: lethargic EENT: normal ENT inspection Neck: normal alignment Cardiovascular: normal peripheral pulses, normal rate, regular rhythm Respiratory/Chest: chest wall non-tender, lungs clear, normal breath sounds Abdomen: normal bowel sounds, non tender, soft Extremities: normal inspection Edema: no edema noted Arm (L), no edema noted Arm (R), no edema noted Leg (L), no edema noted Leg (R), no edema noted Pedal (L), no edema noted Pedal (R), no edema noted Generalized Neurologic: motor weakness Skin: normal pigmentation, warm/dry Cosme Chong DO May 15, 2019 09:51
--- NOTE | 2019-05-15 09:57 | Nephrology Progress Note ---
Assessment/Plan Problem List: (1) Hypercalcemia Assessment: improving (2) Septic shock (3) Acute kidney injury (4) Acute respiratory failure (5) Dehydration (6) Anemia Assessment Acute renal failure Dehydration / HyperNatremia / HyperCalcemia Septic Shock Respiratory failure / COPD NSTEMI DM PEG Schizophrenia Anemia Plan K Phos IV , Mag IV as needed Aredia 90 mg IV and Nasal Calcitonin repeat Aredia 05/12 correct lytes prn Lasix trial Midodrine ? weaning vs Trach IV fluid change to 1/2 NS K and Phos and Mag supplement as needed monitor renal parameters and Calcium urine studies anemia au avoid Nephrotoxics Subjective ROS Limited/Unobtainable: Yes Objective Objective Last 24 Hour Vital Signs Date Time Temp Pulse Resp B/P (MAP) Pulse Ox O2 Delivery O2 Flow Rate FiO2 05/15/19 09:41 70 16 30 05/15/19 09:41 100 05/15/19 08:00 30 05/15/19 08:00 Mechanical Ventilator 05/15/19 07:49 65 14 30 05/15/19 07:00 66 13 94/79 (84) 100 05/15/19 06:00 57 12 104/47 (66) 100 05/15/19 05:10 61 12 30 05/15/19 05:00 63 13 106/51 (69) 100 05/15/19 04:00 30 05/15/19 04:00 64 15 99/39 (59) 100 05/15/19 04:00 Mechanical Ventilator 05/15/19 04:00 65 05/15/19 03:06 57 12 30 05/15/19 03:00 55 12 88/36 (53) 100 05/15/19 02:00 64 14 119/57 (77) 100 05/15/19 01:00 61 14 103/50 (67) 100 05/15/19 00:51 63 13 30 05/15/19 00:00 Mechanical Ventilator 05/15/19 00:00 98.6 63 13 109/45 (66) 100 05/14/19 23:20 58 12 30 05/14/19 23:00 63 14 110/36 (60) 100 05/14/19 22:00 63 13 114/44 (67) 99 05/14/19 21:00 60 13 104/34 (57) 100 05/14/19 21:00 60 12 30 05/14/19 20:00 63 05/14/19 20:00 99.0 63 14 115/39 (64) 99 05/14/19 20:00 Mechanical Ventilator 05/14/19 20:00 30 05/14/19 19:00 67 16 105/61 (76) 100 05/14/19 18:55 64 15 30 05/14/19 18:00 68 16 109/37 (61) 100 05/14/19 17:00 62 13 91/44 (60) 100 05/14/19 16:42 60 14 30 05/14/19 16:00 61 05/14/19 16:00 Mechanical Ventilator 05/14/19 16:00 98.7 61 13 95/58 (70) 98 05/14/19 15:14 70 17 116/35 (62) 100 05/14/19 15:00 61 13 88/66 (73) 99 05/14/19 14:39 58 13 30 05/14/19 14:00 58 13 101/33 (55) 100 05/14/19 13:00 59 12 113/41 (65) 100 05/14/19 12:40 30 05/14/19 12:40 55 13 30 05/14/19 12:00 Mechanical Ventilator 05/14/19 12:00 60 05/14/19 12:00 30 05/14/19 12:00 99.2 68 20 113/43 (66) 100 05/14/19 11:00 61 22 91/32 (51) 99 05/14/19 10:42 61 23 30 05/14/19 10:07 72 15 119/41 (67) 99 05/14/19 10:00 65 23 74/53 (60) 99 Intake and Output 05/14/19 05/15/19 19:00 07:00 Intake Total 500 ml 760 ml Output Total 760 ml 465 ml Balance -260 ml 295 ml Free Water 100 ml 100 ml Tube Feeding 400 ml 600 ml Other 60 ml Output Urine Total 610 ml 465 ml Stool Total 150 ml # Bowel Movements 100 Laboratory Tests 05/15/19 04:30: White Blood Count 6.7, Red Blood Count 2.61L, Hemoglobin 7.8L, Hematocrit 22.8L , Mean Corpuscular Volume 87, Mean Corpuscular Hemoglobin 30.0, Mean Corpuscular Hemoglobin Concent 34.3, Red Cell Distribution Width 14.2, Platelet Count 165, Mean Platelet Volume 5.7L, Neutrophils (%) (Auto) , Lymphocytes (%) ( Auto) , Monocytes (%) (Auto) , Eosinophils (%) (Auto) , Basophils (%) (Auto) , Sodium Level 144, Potassium Level 4.9, Chloride Level 114H, Carbon Dioxide Level 24, Anion Gap 6, Blood Urea Nitrogen 25H, Creatinine 0.6, Estimat Glomerular Filtration Rate , Glucose Level 130H, Calcium Level 9.3, Phosphorus Level 2.2L, Magnesium Level 1.7L, Total Bilirubin 0.3, Aspartate Amino Transf ( AST/SGOT) 23, Alanine Aminotransferase (ALT/SGPT) 32, Alkaline Phosphatase 232H , Total Protein 4.5L, Albumin 1.9L, Globulin 2.6, Albumin/Globulin Ratio 0.7L Height (Feet): 5 Height (Inches): 7.00 Weight (Pounds): 122 General Appearance: no apparent distress EENT: other - vented Cardiovascular: normal rate Respiratory/Chest: decreased breath sounds Abdomen: soft Objective no change Fox Ho MD May 15, 2019 09:57
[2019-05-15] MEDS ORDERED: Sodium Phosphate 30 MM in NS 275 ML IVPB ONE (10:00)
--- NOTE | 2019-05-15 10:05 | Infectious Diseases Prog Note ---
Assessment/Plan Assessment/Plan Assessment/Recommendation: Tmax 104.2, SP New leukocytosis after steroid given, SP Lactate 3.4>1.6>2.4>3.3>3.8>1.0 UTI, SP 05/01 UA 10-15 WBC 05/01 UCx: MDR Klebsiella(R-imipenem, gent, cipro, nitrofurantoin, zosyn, bactrim. I-amikacin) PNA, SP 05/01 sputum cx: MRSA, Providencia(S-amikacin, cefepime, ceftazidime, cipro, erta, zosyn), normal resp magdalena 05/01 CXR: Right mainstem intubation. Suggest pulling the tube back about 3 cm. Atelectasis of the left lower lobe. Superimposed pneumonia or pleural effusion is not excluded. CHF suspected. 05/01 CXR: Endotracheal tube is 2 cm above the guille in good position. A left subclavian line is also present in good position of the tip projected over the SVC. Pulmonary edema again demonstrated. There is hazy opacity at the left lung base which is probably a pleural effusion. 05/02 CXR: Over one day, interval improvement of previously demonstrated left- sided pleural fluid and interstitial and airspace edema. Parenchymal disease is unchanged on the right. 05/03 CXR: Stable satisfactory positions of endotracheal tube, left arm PICC. Hazy opacities in the right mid and lower lung are probably unchanged. There is a small amount of hazy opacity at the left lung base persisting as well. The heart is normal in size. Allowing for technical differences, findings are overall unchanged r/o bacteremia 05/01 BCx: ng MRSA negative VRE negative CRE negative HTN COPD Schizophrenia DM G tube Parkinson CKD Protein calorie malnutrition Dementia Psychosis Gastritis Functional paraplegia Plan: monitor off antibiotics 05/11 SP Brad and Linezolid #7(#10 of total abx) 05/05 DC Cefepime #1 05/04 SP Colistin #1 05/04 DC Ertapenem, Amikacin, Vancomycin #3 05/01 SP Zosyn #1 monitor temp, CBC, resp status aspiration precaution ETT management skin care oral care C diff if diarrhea persists--appears to have resolved Thank you for this consult. [facility] will continue to follow the patient with you. Subjective Allergies: Coded Allergies: No Known Allergies (Unverified , 05/01/19) Subjective Afebrile. Awake. Tolerated 4hrs weaning yesterday. FiO2 30% No leukocytosis Objective Vital Signs Last 24 Hour Vital Signs Date Time Temp Pulse Resp B/P (MAP) Pulse Ox O2 Delivery O2 Flow Rate FiO2 05/15/19 09:41 70 16 30 05/15/19 09:41 100 05/15/19 08:00 30 05/15/19 08:00 Mechanical Ventilator 05/15/19 07:49 65 14 30 05/15/19 07:00 66 13 94/79 (84) 100 05/15/19 06:00 57 12 104/47 (66) 100 05/15/19 05:10 61 12 30 05/15/19 05:00 63 13 106/51 (69) 100 05/15/19 04:00 30 05/15/19 04:00 64 15 99/39 (59) 100 05/15/19 04:00 Mechanical Ventilator 05/15/19 04:00 65 05/15/19 03:06 57 12 30 05/15/19 03:00 55 12 88/36 (53) 100 05/15/19 02:00 64 14 119/57 (77) 100 05/15/19 01:00 61 14 103/50 (67) 100 05/15/19 00:51 63 13 30 05/15/19 00:00 Mechanical Ventilator 05/15/19 00:00 98.6 63 13 109/45 (66) 100 05/14/19 23:20 58 12 30 05/14/19 23:00 63 14 110/36 (60) 100 05/14/19 22:00 63 13 114/44 (67) 99 05/14/19 21:00 60 13 104/34 (57) 100 05/14/19 21:00 60 12 30 05/14/19 20:00 63 05/14/19 20:00 99.0 63 14 115/39 (64) 99 05/14/19 20:00 Mechanical Ventilator 05/14/19 20:00 30 05/14/19 19:00 67 16 105/61 (76) 100 05/14/19 18:55 64 15 30 05/14/19 18:00 68 16 109/37 (61) 100 05/14/19 17:00 62 13 91/44 (60) 100 05/14/19 16:42 60 14 30 05/14/19 16:00 61 05/14/19 16:00 Mechanical Ventilator 05/14/19 16:00 98.7 61 13 95/58 (70) 98 05/14/19 15:14 70 17 116/35 (62) 100 05/14/19 15:00 61 13 88/66 (73) 99 05/14/19 14:39 58 13 30 05/14/19 14:00 58 13 101/33 (55) 100 05/14/19 13:00 59 12 113/41 (65) 100 05/14/19 12:40 30 05/14/19 12:40 55 13 30 05/14/19 12:00 Mechanical Ventilator 05/14/19 12:00 60 05/14/19 12:00 30 05/14/19 12:00 99.2 68 20 113/43 (66) 100 05/14/19 11:00 61 22 91/32 (51) 99 05/14/19 10:42 61 23 30 05/14/19 10:07 72 15 119/41 (67) 99 Height (Feet): 5 Height (Inches): 7.00 Weight (Pounds): 122 Objective VS: Tmax 104.2 Gen: NAD. twitching HEENT: ETT CV: RRR Resp: RRR. coarse. no wheezes Abd: soft. nondistended. normoactive Bs+ Neuro: not awake Laboratory Tests Test 05/15/19 04:30 White Blood Count 6.7 K/UL (4.8-10.8) Red Blood Count 2.61 M/UL (4.20-5.40) L Hemoglobin 7.8 G/DL (12.0-16.0) L Hematocrit 22.8 % (37.0-47.0) L Mean Corpuscular Volume 87 FL (80-99) Mean Corpuscular Hemoglobin 30.0 PG (27.0-31.0) Mean Corpuscular Hemoglobin Concent 34.3 G/DL (32.0-36.0) Red Cell Distribution Width 14.2 % (11.6-14.8) Platelet Count 165 K/UL (150-450) Mean Platelet Volume 5.7 FL (6.5-10.1) L Neutrophils (%) (Auto) % (45.0-75.0) Lymphocytes (%) (Auto) % (20.0-45.0) Monocytes (%) (Auto) % (1.0-10.0) Eosinophils (%) (Auto) % (0.0-3.0) Basophils (%) (Auto) % (0.0-2.0) Sodium Level 144 MMOL/L (136-145) Potassium Level 4.9 MMOL/L (3.5-5.1) Chloride Level 114 MMOL/L (98-107) H Carbon Dioxide Level 24 MMOL/L (21-32) Anion Gap 6 mmol/L (5-15) Blood Urea Nitrogen 25 mg/dL (7-18) H Creatinine 0.6 MG/DL (0.55-1.30) Estimat Glomerular Filtration Rate mL/min (>60) Glucose Level 130 MG/DL (74-106) H Calcium Level 9.3 MG/DL (8.5-10.1) Phosphorus Level 2.2 MG/DL (2.5-4.9) L Magnesium Level 1.7 MG/DL (1.8-2.4) L Total Bilirubin 0.3 MG/DL (0.2-1.0) Aspartate Amino Transf (AST/SGOT) 23 U/L (15-37) Alanine Aminotransferase (ALT/SGPT) 32 U/L (12-78) Alkaline Phosphatase 232 U/L (46-116) H Total Protein 4.5 G/DL (6.4-8.2) L Albumin 1.9 G/DL (3.4-5.0) L Globulin 2.6 g/dL Albumin/Globulin Ratio 0.7 (1.0-2.7) L Current Medications Medications (Trade) Dose Ordered Sig/Vane Route PRN Reason Start Time Stop Time Status Last Admin Dose Admin Acetaminophen (Tylenol) 650 mg Q4H PRN NG fever 05/04/19 09:30 05/31/19 12:44 05/04/19 10:00 Albuterol/ Ipratropium (Albuterol/ Ipratropium) 3 ml Q4HRT PRN HHN sob 05/13/19 10:30 05/18/19 10:29 Calcitonin [place] (Miacalcin) 1 sprays DAILY NASAL 05/04/19 09:00 06/03/19 08:59 05/15/19 08:42 Chlorhexidine Gluconate (Shanice-Hex 2%) 1 applic DAILY@2000 TOPIC 05/01/19 20:00 05/31/19 19:59 05/14/19 20:37 Dextrose (Dextrose 50%) 25 ml Q30M PRN IV Hypoglycemia 05/02/19 06:30 06/01/19 06:29 Dextrose (Dextrose 50%) 50 ml Q30M PRN IV Hypoglycemia 05/02/19 06:30 06/01/19 06:29 Heparin Sodium (Porcine) (Heparin 5000 units/ml) 5,000 units EVERY 12 HOURS SUBQ 05/01/19 21:00 05/31/19 20:59 05/15/19 08:45 Insulin Aspart (NovoLOG) EVERY 6 HOURS SUBQ 05/02/19 07:30 06/01/19 07:29 05/15/19 05:52 Lorazepam (Ativan) 0.25 mg Q6H PRN GT For Anxiety 05/14/19 06:30 05/21/19 06:29 05/14/19 20:38 Midodrine (Pro-Amatine) 5 mg THREE TIMES A DAY NG 05/06/19 13:00 06/04/19 12:59 05/15/19 08:41 Norepinephrine Bitartrate 4 mg/ Dextrose 254 ml @ 0 mls/hr Q24H IV 05/01/19 12:45 05/31/19 12:44 05/04/19 18:15 Ondansetron HCl (Zofran) 4 mg Q6H PRN IVP Nausea & Vomiting 05/01/19 12:45 05/31/19 12:44 Pantoprazole (Protonix) 40 mg Q12HR IV 05/01/19 21:00 06/01/19 08:59 05/15/19 08:42 Risperidone (RisperDAL) 0.25 mg QHS PRN GT Agitation 05/02/19 07:30 06/01/19 07:29 05/13/19 22:40 Sodium Phosphate 30 mm/Sodium Chloride 285 ml @ 47.5 mls/hr ONCE ONCE IVPB 05/15/19 10:00 05/15/19 15:59 05/15/19 09:54 Jennifer Palm MD May 15, 2019 10:05
--- NOTE | 2019-05-15 10:10 | NUR ---
NURSE NOTES: Received verbal order from Dr Lai to wean patient for only 30 minutes on CPAP pressure support 10. When asked if patient should have ABG post weaning, Dr Lai ordered for no ABG to be obtained. RT Lori notified. Patient placed on pressure support 10 at this time. Will continue to monitor for respiratory distress.
--- NOTE | 2019-05-15 10:23 | Diagnostic Imaging Report ---
Indication: Shortness of breath Technique: One view of the chest Comparison: 05/14/2019 Findings: Endotracheal tube tip projects approximately 2 cm above the guille. Interstitial and airspace opacities are seen in the right lung, appearing slightly increased from the prior exam. There may be some fluid in the minor fissure. Interstitial opacities on the left appear similar to the previous study. The heart size is normal. Left arm PICC remains Impression: Increasing interstitial and airspace disease in the right lung, over one day
--- NOTE | 2019-05-15 10:33 | Pulmonolgy Critical Care Note ---
Critical Care - Asmt/Plan Problems: (1) Acute respiratory failure (2) Septic shock (3) COPD (chronic obstructive pulmonary disease) (4) Hypernatremia (5) Acute kidney injury (6) Hypertension (7) Diabetes mellitus (8) Feeding by G-tube Respiratory: monitor respiratory rate, adjust FIO2, CXR Cardiac: continue pressors, stop pressors, continue to monitor HR/BP Renal: check electrolytes Infectious Disease: check cultures Gastrointestinal: continue feedings/current rate Endocrine: monitor blood sugar Hematologic: transfuse if hgb<8.5 Neurologic: PRN Ativan, keep patient comfortable Affect: PRN ativan Prophylaxis: Heparin Notes Reviewed: commission broker, renal Discussed with: nurses, consultants, welfare case workerprocessing manager - Objective Last 24 Hour Vital Signs Date Time Temp Pulse Resp B/P (MAP) Pulse Ox O2 Delivery O2 Flow Rate FiO2 05/15/19 09:41 70 16 30 05/15/19 09:41 100 05/15/19 08:00 64 05/15/19 08:00 30 05/15/19 08:00 Mechanical Ventilator 05/15/19 07:49 65 14 30 05/15/19 07:00 66 13 94/79 (84) 100 05/15/19 06:00 57 12 104/47 (66) 100 05/15/19 05:10 61 12 30 05/15/19 05:00 63 13 106/51 (69) 100 05/15/19 04:00 30 05/15/19 04:00 64 15 99/39 (59) 100 05/15/19 04:00 Mechanical Ventilator 05/15/19 04:00 65 05/15/19 03:06 57 12 30 05/15/19 03:00 55 12 88/36 (53) 100 05/15/19 02:00 64 14 119/57 (77) 100 05/15/19 01:00 61 14 103/50 (67) 100 05/15/19 00:51 63 13 30 05/15/19 00:00 Mechanical Ventilator 05/15/19 00:00 98.6 63 13 109/45 (66) 100 05/14/19 23:20 58 12 30 05/14/19 23:00 63 14 110/36 (60) 100 05/14/19 22:00 63 13 114/44 (67) 99 05/14/19 21:00 60 13 104/34 (57) 100 05/14/19 21:00 60 12 30 05/14/19 20:00 63 05/14/19 20:00 99.0 63 14 115/39 (64) 99 05/14/19 20:00 Mechanical Ventilator 05/14/19 20:00 30 05/14/19 19:00 67 16 105/61 (76) 100 05/14/19 18:55 64 15 30 05/14/19 18:00 68 16 109/37 (61) 100 05/14/19 17:00 62 13 91/44 (60) 100 05/14/19 16:42 60 14 30 05/14/19 16:00 61 05/14/19 16:00 Mechanical Ventilator 05/14/19 16:00 98.7 61 13 95/58 (70) 98 05/14/19 15:14 70 17 116/35 (62) 100 05/14/19 15:00 61 13 88/66 (73) 99 05/14/19 14:39 58 13 30 05/14/19 14:00 58 13 101/33 (55) 100 05/14/19 13:00 59 12 113/41 (65) 100 05/14/19 12:40 30 05/14/19 12:40 55 13 30 05/14/19 12:00 Mechanical Ventilator 05/14/19 12:00 60 05/14/19 12:00 30 05/14/19 12:00 99.2 68 20 113/43 (66) 100 05/14/19 11:00 61 22 91/32 (51) 99 05/14/19 10:42 61 23 30 Status: awake, sedated Neck: full ROM Heart: HR/BP unstable Abdomen: non-tender, active bowel sounds Decubiti: stage Accucheck: 130 Critical Care - Subjective ROS Limited/Unobtainable: No Condition: critical EKG Rhythm: Sinus Rhythm FI02: 30 Vent Support Breath Rate: 12 Vent Support Mode: CPAP Vent Tidal Volume: 500 Sputum Amount: Scant PEEP: 5.0 PIP: 13 Tube Feeding Amount: 50 I&O: Intake and Output 05/14/19 05/15/19 19:00 07:00 Intake Total 500 ml 760 ml Output Total 760 ml 465 ml Balance -260 ml 295 ml Free Water 100 ml 100 ml Tube Feeding 400 ml 600 ml Other 60 ml Output Urine Total 610 ml 465 ml Stool Total 150 ml # Bowel Movements 100 CXR: ET in good position ET-Tube: 7.5 ET Position: 22 Labs: Laboratory Tests Test 05/15/19 04:30 White Blood Count 6.7 K/UL (4.8-10.8) Red Blood Count 2.61 M/UL (4.20-5.40) L Hemoglobin 7.8 G/DL (12.0-16.0) L Hematocrit 22.8 % (37.0-47.0) L Mean Corpuscular Volume 87 FL (80-99) Mean Corpuscular Hemoglobin 30.0 PG (27.0-31.0) Mean Corpuscular Hemoglobin Concent 34.3 G/DL (32.0-36.0) Red Cell Distribution Width 14.2 % (11.6-14.8) Platelet Count 165 K/UL (150-450) Mean Platelet Volume 5.7 FL (6.5-10.1) L Neutrophils (%) (Auto) % (45.0-75.0) Lymphocytes (%) (Auto) % (20.0-45.0) Monocytes (%) (Auto) % (1.0-10.0) Eosinophils (%) (Auto) % (0.0-3.0) Basophils (%) (Auto) % (0.0-2.0) Sodium Level 144 MMOL/L (136-145) Potassium Level 4.9 MMOL/L (3.5-5.1) Chloride Level 114 MMOL/L (98-107) H Carbon Dioxide Level 24 MMOL/L (21-32) Anion Gap 6 mmol/L (5-15) Blood Urea Nitrogen 25 mg/dL (7-18) H Creatinine 0.6 MG/DL (0.55-1.30) Estimat Glomerular Filtration Rate mL/min (>60) Glucose Level 130 MG/DL (74-106) H Calcium Level 9.3 MG/DL (8.5-10.1) Phosphorus Level 2.2 MG/DL (2.5-4.9) L Magnesium Level 1.7 MG/DL (1.8-2.4) L Total Bilirubin 0.3 MG/DL (0.2-1.0) Aspartate Amino Transf (AST/SGOT) 23 U/L (15-37) Alanine Aminotransferase (ALT/SGPT) 32 U/L (12-78) Alkaline Phosphatase 232 U/L (46-116) H Total Protein 4.5 G/DL (6.4-8.2) L Albumin 1.9 G/DL (3.4-5.0) L Globulin 2.6 g/dL Albumin/Globulin Ratio 0.7 (1.0-2.7) L Yancy Lai MD May 15, 2019 10:33
--- NOTE | 2019-05-15 10:33 | NUR ---
RADIOLOGY DEPT., CHEST X-RAY DONE.-P.DYE
--- NOTE | 2019-05-15 10:42 | Surgery Progress Note ---
Surgery Progress Note Subjective Additional Comments labs stable responsive tolerated 4 [address]aning trail Objective Last 24 Hour Vital Signs Date Time Temp Pulse Resp B/P (MAP) Pulse Ox O2 Delivery O2 Flow Rate FiO2 05/15/19 09:41 70 16 30 05/15/19 09:41 100 05/15/19 08:00 64 05/15/19 08:00 30 05/15/19 08:00 Mechanical Ventilator 05/15/19 07:49 65 14 30 05/15/19 07:00 66 13 94/79 (84) 100 05/15/19 06:00 57 12 104/47 (66) 100 05/15/19 05:10 61 12 30 05/15/19 05:00 63 13 106/51 (69) 100 05/15/19 04:00 30 05/15/19 04:00 64 15 99/39 (59) 100 05/15/19 04:00 Mechanical Ventilator 05/15/19 04:00 65 05/15/19 03:06 57 12 30 05/15/19 03:00 55 12 88/36 (53) 100 05/15/19 02:00 64 14 119/57 (77) 100 05/15/19 01:00 61 14 103/50 (67) 100 05/15/19 00:51 63 13 30 05/15/19 00:00 Mechanical Ventilator 05/15/19 00:00 98.6 63 13 109/45 (66) 100 05/14/19 23:20 58 12 30 05/14/19 23:00 63 14 110/36 (60) 100 05/14/19 22:00 63 13 114/44 (67) 99 05/14/19 21:00 60 13 104/34 (57) 100 05/14/19 21:00 60 12 30 05/14/19 20:00 63 05/14/19 20:00 99.0 63 14 115/39 (64) 99 05/14/19 20:00 Mechanical Ventilator 05/14/19 20:00 30 05/14/19 19:00 67 16 105/61 (76) 100 05/14/19 18:55 64 15 30 05/14/19 18:00 68 16 109/37 (61) 100 05/14/19 17:00 62 13 91/44 (60) 100 05/14/19 16:42 60 14 30 05/14/19 16:00 61 05/14/19 16:00 Mechanical Ventilator 05/14/19 16:00 98.7 61 13 95/58 (70) 98 05/14/19 15:14 70 17 116/35 (62) 100 05/14/19 15:00 61 13 88/66 (73) 99 05/14/19 14:39 58 13 30 05/14/19 14:00 58 13 101/33 (55) 100 05/14/19 13:00 59 12 113/41 (65) 100 05/14/19 12:40 30 05/14/19 12:40 55 13 30 05/14/19 12:00 Mechanical Ventilator 05/14/19 12:00 60 05/14/19 12:00 30 05/14/19 12:00 99.2 68 20 113/43 (66) 100 05/14/19 11:00 61 22 91/32 (51) 99 05/14/19 10:42 61 23 30 I&O Intake and Output 05/14/19 05/15/19 19:00 07:00 Intake Total 500 ml 760 ml Output Total 760 ml 465 ml Balance -260 ml 295 ml Free Water 100 ml 100 ml Tube Feeding 400 ml 600 ml Other 60 ml Output Urine Total 610 ml 465 ml Stool Total 150 ml # Bowel Movements 100 Dressing: saturated Wound: clean Cardiovascular: RSR Respiratory: clear Abdomen: soft, present bowel sounds, non-distended Extremities: no cyanosis, other Laboratory Tests Test 05/15/19 04:30 White Blood Count 6.7 K/UL (4.8-10.8) Red Blood Count 2.61 M/UL (4.20-5.40) L Hemoglobin 7.8 G/DL (12.0-16.0) L Hematocrit 22.8 % (37.0-47.0) L Mean Corpuscular Volume 87 FL (80-99) Mean Corpuscular Hemoglobin 30.0 PG (27.0-31.0) Mean Corpuscular Hemoglobin Concent 34.3 G/DL (32.0-36.0) Red Cell Distribution Width 14.2 % (11.6-14.8) Platelet Count 165 K/UL (150-450) Mean Platelet Volume 5.7 FL (6.5-10.1) L Neutrophils (%) (Auto) % (45.0-75.0) Lymphocytes (%) (Auto) % (20.0-45.0) Monocytes (%) (Auto) % (1.0-10.0) Eosinophils (%) (Auto) % (0.0-3.0) Basophils (%) (Auto) % (0.0-2.0) Sodium Level 144 MMOL/L (136-145) Potassium Level 4.9 MMOL/L (3.5-5.1) Chloride Level 114 MMOL/L (98-107) H Carbon Dioxide Level 24 MMOL/L (21-32) Anion Gap 6 mmol/L (5-15) Blood Urea Nitrogen 25 mg/dL (7-18) H Creatinine 0.6 MG/DL (0.55-1.30) Estimat Glomerular Filtration Rate mL/min (>60) Glucose Level 130 MG/DL (74-106) H Calcium Level 9.3 MG/DL (8.5-10.1) Phosphorus Level 2.2 MG/DL (2.5-4.9) L Magnesium Level 1.7 MG/DL (1.8-2.4) L Total Bilirubin 0.3 MG/DL (0.2-1.0) Aspartate Amino Transf (AST/SGOT) 23 U/L (15-37) Alanine Aminotransferase (ALT/SGPT) 32 U/L (12-78) Alkaline Phosphatase 232 U/L (46-116) H Total Protein 4.5 G/DL (6.4-8.2) L Albumin 1.9 G/DL (3.4-5.0) L Globulin 2.6 g/dL Albumin/Globulin Ratio 0.7 (1.0-2.7) L Plan Problems: (1) Sacral decubitus ulcer, stage III Assessment & Plan: Patient presented on admission with multiple pressure injuries noted. Patient seen by team during admission and I was called on to evaluate patient Full Thickness Stage III Pressure injury sacrum. Base of wound 100% necrotic with red margins(L)2.5cm x (W)2.7cm with surrounding maroon and indurated borders (L)7.5cm x (W)8.5cm. Periwound soft and with edema. Maroon and indurated area noted to R buttocks. Non-blanching erythema noted to R trochanteric.(L)6.5cm x (W)7.5cm. Elongated wound noted to medial/posterior R thigh(L)0.6cm x (W)5.2cm. L heel boggy with non-blanching erythema. Non-Blanchable erythema R heel without fluctuance. Recommendations: Wash wounds daily with NS or soap/water Apply therahoney or hydrogel impregnated gauze to sacral wound, cover with foam dressing daily and prn saturation Will need to monitor for incontinence as she is having loose stools and need diligent care as can worsen wound Apply foam dressing to R hip, change q3 days bilateral heel foam dressings APM/SOILA Mattress overlay. Reposition at least every 2hours or as tolerated. Off-load heels with Pillow. nutritional optimization will follow with recs thank you (2) Malnutrition Assessment & Plan: DAILY ESTIMATED NEEDS: Needs based on Critical care, wounds; 48.6kg 22- 30 kcals/kg 0719-1220 total kcals 1.25-2 g protein/kg 61-97 g total protein 25-30 mL/kg 3293-5957 total fluid mLs NUTRITION DIAGNOSIS: 1) Increased kcal and pro needs r/t wound healing AEB pt adm w/ multiple wounds, including full thickness sacral wounds, refer to WC eval. 2) Swallowing difficulty r/t respiratory status AEB pt is intubated, Peg dep, TF at low rate for elev residuals. CURRENT TF:Glucerna 1.2 @50-> now @20ml/hr ENTERAL NUTRITION RECOMMENDATIONS: VITAL AF 1.2 @ 45mL/hr x 24 hrs to provide 1080mL, 1296kcal, 81g pro, 876mL free H2O With continued elev residuals, rec TF change to VITAL 1.2 w/ goal rate of 45ml/ hr. - Start @15ml/hr until tolerated w/ no to little residuals. Advance 10ml/hr q4-6 hrs to goal rate TOLERATED. - Flush per MD. HOB over 30 degrees ADDITIONAL RECOMMENDATIONS: 1) Per SNF: 107 lbs, 60 inches 2) When pt is stable, see TF recs above. 3) Wound care: Add ARNALDO BID + Vit C 250mg BID -> Hold Arnaldo BID until TF is better tolerated w/ low to no residuals 4) Monitor lytes-> replete as needed 5) With continued elevated blood glucose, rec long acting insulin Monitor BG w/ active TF order (3) Failure to thrive in adult (4) Feeding by G-tube (5) Septic shock Assessment & Plan: labs noted exam as above wean vent as tolerated nutritional optimization trend labs abx as per ID will follow with recs cont with weaning trials. thank you (6) Dehydration Ralph Roth May 15, 2019 10:42
--- NOTE | 2019-05-15 11:00 | Progress Note ---
DATE: 05/15/2019 SUBJECTIVE: This is a 78-year-old female patient with respiratory failure, altered mental status, confusion, decline in cognition below baseline. She continues to have some confusion, disorganized thought process, worsened by stress of her medical illness. That is why, she does require daily psychiatric consultation. She has mood lability, altered mental status, decline in cognition below baseline. DIAGNOSIS: Major depressive disorder, moderate, recurrent with psychotic features, rule out dementia with psychosis. PLAN: Plan for this patient, treat her with Risperdal 0.25 mg per G-tube at bedtime p.r.n. anxiety and agitation. She continued to be followed by Psychiatry throughout hospital course. A 20 minutes of behavioral management provided. continue to be followed by Psychiatry throughout hospital course. Chart reviewed. Discussed with staff. Seen and assessed in his room. Kristen Rodgers M.D. DR: SAMANTHA JOB#: [id number] CC:
--- NOTE | 2019-05-15 11:01 | NUR ---
NURSE NOTES: Called Dr Lai. Reported that patient has been on CPAP with pressure support 10 for 40 minutes with no respiratory distress. Received order to extubate patient. Asked if patient should have ABG taken one hour post extubation. Dr Lai reported that he does not want an ABG taken post extubation. Received order to place patient on cool aerosol mask post extubation. All orders read back, verified, and placed at this time.
--- NOTE | 2019-05-15 11:06 | Hematology/Onc Progress Note ---
Assessment/Plan Assessment/Plan # Anemia of chronic disease due to underlying chronic medical issues, multifactorial, in this case sepsis --> Anemia workup has been reviewed, no bleeding --> No evidence of hemolysis is noted, peripheral smear has been reviewed. --> Hgb goal >7. Transfuse prn. --> Epogen or iron at this time is not particularly indicated --> Medications have been reviewed --> low threshold for gi evaluation in case has occult + --> bone marrow biopsy is not indicated given the other more likely causes --> hgb trend 11.5-->7.8-->8.9 --> 9.4->7.8 # Thrombocytopenia - potential causes multifactorial, evaluate liver and viral etiologies to begin, also could be related to underlying medications patient has received. In this case with septic shock --> Hep panel and HIV ordered --> US abd to evaluate for cirrhosis and hsm ordered --> Peripheral smear ordered to evaluate for blasts /schistocytes --> abx and other meds have been reviewed --> ok for ppx if plt >50k w/ either heparin or lovenox --> Transfuse if Plt < 20k and fever, or if Plt < 10k without fever --> plt trend 164-->102-->104-->241->165 # Hypercalcemia --> started on ivf by renal --> Ca trend as needed --> pamidronate given calcitonin # Septic shock --> erta/aamikacin/vanc per id # Acute kidney injury --> per renal # Acute respiratory failure s/p vent --> per pulm # Dysphagia s/p peg # Decub ulceration --> therahoney as per surg # Schizophrenia # Dvt ppx heparins sq The timing of this note does not necessarily reflect the time of the patient was seen. Greatly appreciate consultation. Subjective Constitutional: Denies: no symptoms, chills, fever, malaise, weakness, other HEENT: Denies: no symptoms, eye pain, blurred vision, tearing, double vision, ear pain, ear discharge, nose pain, nose congestion, throat pain, throat swelling, mouth pain, mouth swelling, other Cardiovascular: Denies: no symptoms, chest pain, edema, irregular heart rate, lightheadedness, palpitations, syncope, other Genitourinary: Denies: no symptoms, burning, discharge, frequency, flank pain, hematuria, incontinence, pain, urgency, other Neurologic/Psychiatric: Denies: no symptoms, anxiety, depressed, emotional problems, headache, numbness, paresthesia, pre-existing deficit, seizure, tingling, tremors, weakness, other Hematologic/Lymphatic: Denies: no symptoms, anemia, easy bleeding, easy bruising, adenopathy, other Allergies: Coded Allergies: No Known Allergies (Unverified , 05/01/19) Subjective 05/03: remains on vent, counts reviewed with rn, on abx, no bleeding 05/11: icu, awake, nonverbal, failed to wean from vent 05/12: no events noted, overnight, vladimir rn in the am, no bleeding 05/13: remains intubated, labs noted, no bleeding no chills 05/15: remains intubated, cpap trial, vladimir rn, hgb 7.8, holding off palma Objective Objective Current Medications Medications (Trade) Dose Ordered Sig/Vane Route PRN Reason Start Time Stop Time Status Last Admin Dose Admin Acetaminophen (Tylenol) 650 mg Q4H PRN NG fever 05/04/19 09:30 05/31/19 12:44 05/04/19 10:00 Albuterol/ Ipratropium (Albuterol/ Ipratropium) 3 ml Q4HRT PRN HHN sob 05/13/19 10:30 05/18/19 10:29 Calcitonin Rose (Miacalcin) 1 sprays DAILY NASAL 05/04/19 09:00 06/03/19 08:59 05/15/19 08:42 Chlorhexidine Gluconate (Shanice-Hex 2%) 1 applic DAILY@1999 TOPIC 05/01/19 20:00 05/31/19 19:59 05/14/19 20:37 Dextrose (Dextrose 50%) 25 ml Q30M PRN IV Hypoglycemia 05/02/19 06:30 06/01/19 06:29 Dextrose (Dextrose 50%) 50 ml Q30M PRN IV Hypoglycemia 05/02/19 06:30 06/01/19 06:29 Heparin Sodium (Porcine) (Heparin 5000 units/ml) 5,000 units EVERY 12 HOURS SUBQ 05/01/19 21:00 05/31/19 20:59 05/15/19 08:45 Insulin Aspart (NovoLOG) EVERY 6 HOURS SUBQ 05/02/19 07:30 06/01/19 07:29 05/15/19 05:52 Lorazepam (Ativan) 0.25 mg Q6H PRN GT For Anxiety 05/14/19 06:30 05/21/19 06:29 05/14/19 20:38 Midodrine (Pro-Amatine) 5 mg THREE TIMES A DAY NG 05/06/19 13:00 06/04/19 12:59 05/15/19 08:41 Norepinephrine Bitartrate 4 mg/ Dextrose 254 ml @ 0 mls/hr Q24H IV 05/01/19 12:45 05/31/19 12:44 05/04/19 18:15 Ondansetron HCl (Zofran) 4 mg Q6H PRN IVP Nausea & Vomiting 05/01/19 12:45 05/31/19 12:44 Pantoprazole (Protonix) 40 mg Q12HR IV 05/01/19 21:00 06/01/19 08:59 05/15/19 08:42 Risperidone (RisperDAL) 0.25 mg QHS PRN GT Agitation 05/02/19 07:30 06/01/19 07:29 05/13/19 22:40 Sodium Phosphate 30 mm/Sodium Chloride 285 ml @ 47.5 mls/hr ONCE ONCE IVPB 05/15/19 10:00 05/15/19 15:59 05/15/19 09:54 Last 24 Hour Vital Signs Date Time Temp Pulse Resp B/P (MAP) Pulse Ox O2 Delivery O2 Flow Rate FiO2 05/15/19 10:10 70 19 30 05/15/19 10:00 73 16 111/38 (62) 99 05/15/19 09:41 70 16 30 05/15/19 09:41 100 05/15/19 09:00 70 15 102/45 (64) 100 05/15/19 08:00 98.4 70 14 108/50 (69) 99 05/15/19 08:00 64 05/15/19 08:00 30 05/15/19 08:00 Mechanical Ventilator 05/15/19 07:49 65 14 30 05/15/19 07:00 66 13 94/79 (84) 100 05/15/19 06:00 57 12 104/47 (66) 100 05/15/19 05:10 61 12 30 05/15/19 05:00 63 13 106/51 (69) 100 05/15/19 04:00 30 05/15/19 04:00 64 15 99/39 (59) 100 05/15/19 04:00 Mechanical Ventilator 05/15/19 04:00 65 05/15/19 03:06 57 12 30 05/15/19 03:00 55 12 88/36 (53) 100 05/15/19 02:00 64 14 119/57 (77) 100 05/15/19 01:00 61 14 103/50 (67) 100 05/15/19 00:51 63 13 30 05/15/19 00:00 Mechanical Ventilator 05/15/19 00:00 98.6 63 13 109/45 (66) 100 05/14/19 23:20 58 12 30 05/14/19 23:00 63 14 110/36 (60) 100 05/14/19 22:00 63 13 114/44 (67) 99 05/14/19 21:00 60 13 104/34 (57) 100 05/14/19 21:00 60 12 30 05/14/19 20:00 63 05/14/19 20:00 99.0 63 14 115/39 (64) 99 05/14/19 20:00 Mechanical Ventilator 05/14/19 20:00 30 05/14/19 19:00 67 16 105/61 (76) 100 05/14/19 18:55 64 15 30 05/14/19 18:00 68 16 109/37 (61) 100 05/14/19 17:00 62 13 91/44 (60) 100 05/14/19 16:42 60 14 30 05/14/19 16:00 61 05/14/19 16:00 Mechanical Ventilator 05/14/19 16:00 98.7 61 13 95/58 (70) 98 05/14/19 15:14 70 17 116/35 (62) 100 05/14/19 15:00 61 13 88/66 (73) 99 05/14/19 14:39 58 13 30 05/14/19 14:00 58 13 101/33 (55) 100 05/14/19 13:00 59 12 113/41 (65) 100 05/14/19 12:40 30 05/14/19 12:40 55 13 30 05/14/19 12:00 Mechanical Ventilator 05/14/19 12:00 60 05/14/19 12:00 30 05/14/19 12:00 99.2 68 20 113/43 (66) 100 05/14/19 11:00 61 22 91/32 (51) 99 05/14/19 10:42 61 23 30 05/14/19 10:07 72 15 119/41 (67) 99 05/14/19 10:00 65 23 74/53 (60) 99 05/14/19 09:00 68 22 97/34 (55) 99 05/14/19 08:53 67 20 30 30 05/14/19 08:50 30 05/14/19 08:50 98 05/14/19 08:00 30 05/14/19 08:00 99.5 63 12 89/35 (53) 99 05/14/19 08:00 Mechanical Ventilator 05/14/19 08:00 65 05/14/19 07:08 69 13 96/36 (56) 99 05/14/19 07:08 68 13 30 05/14/19 07:00 67 13 88/38 (55) 100 05/14/19 06:00 65 13 89/59 (69) 100 05/14/19 05:12 65 13 30 05/14/19 05:00 66 15 100/35 (56) 100 05/14/19 04:07 59 12 91/38 (55) 99 05/14/19 04:00 30 05/14/19 04:00 98.4 59 12 88/39 (55) 99 05/14/19 04:00 Mechanical Ventilator 05/14/19 04:00 58 05/14/19 03:08 64 15 30 05/14/19 03:03 63 12 102/36 (58) 100 05/14/19 03:00 60 13 80/37 (51) 100 05/14/19 02:00 62 13 97/41 (59) 99 05/14/19 01:05 63 18 30 05/14/19 01:00 60 12 92/31 (51) 100 05/14/19 00:00 99.0 57 12 102/37 (58) 100 05/14/19 00:00 Mechanical Ventilator 05/14/19 00:00 61 05/13/19 23:00 66 17 115/37 (63) 99 05/13/19 22:45 68 25 30 05/13/19 22:00 68 19 102/39 (60) 100 05/13/19 21:09 65 12 30 05/13/19 21:00 66 15 102/39 (60) 100 05/13/19 20:00 Mechanical Ventilator 05/13/19 20:00 99.0 65 13 104/68 (80) 100 05/13/19 20:00 30 05/13/19 19:08 68 05/13/19 19:02 69 16 30 05/13/19 19:00 70 15 101/57 (72) 100 05/13/19 18:00 71 15 113/46 (68) 100 05/13/19 17:00 72 15 112/44 (66) 100 05/13/19 16:38 73 12 30 05/13/19 16:00 99.2 70 13 98/46 (63) 99 05/13/19 16:00 30 05/13/19 16:00 81 05/13/19 16:00 Mechanical Ventilator 05/13/19 15:29 72 12 30 05/13/19 15:00 74 14 104/50 (68) 100 05/13/19 14:00 76 14 93/43 (60) 100 05/13/19 13:00 79 14 105/40 (61) 100 05/13/19 12:46 76 14 30 05/13/19 12:45 105/40 05/13/19 12:00 97.9 63 13 91/34 (53) 100 05/13/19 12:00 67 05/13/19 12:00 30 05/13/19 12:00 Mechanical Ventilator 05/13/19 11:09 67 12 30 Intake and Output 05/14/19 05/15/19 19:00 07:00 Intake Total 500 ml 760 ml Output Total 760 ml 465 ml Balance -260 ml 295 ml Free Water 100 ml 100 ml Tube Feeding 400 ml 600 ml Other 60 ml Output Urine Total 610 ml 465 ml Stool Total 150 ml # Bowel Movements 100 Labs Test 05/13/19 05:00 05/14/19 04:30 05/14/19 07:55 05/15/19 04:30 White Blood Count 7.0 K/UL (4.8-10.8) 7.2 K/UL (4.8-10.8) 6.7 K/UL (4.8-10.8) Red Blood Count 3.22 M/UL (4.20-5.40) 2.71 M/UL (4.20-5.40) 2.61 M/UL (4.20-5.40) Hemoglobin 9.4 G/DL (12.0-16.0) 7.8 G/DL (12.0-16.0) 7.8 G/DL (12.0-16.0) Hematocrit 29.5 % (37.0-47.0) 24.3 % (37.0-47.0) 22.8 % (37.0-47.0) Mean Corpuscular Volume 92 FL (80-99) 90 FL (80-99) 87 FL (80-99) Mean Corpuscular Hemoglobin 29.1 PG (27.0-31.0) 29.0 PG (27.0-31.0) 30.0 PG (27.0-31.0) Mean Corpuscular Hemoglobin Concent 31.7 G/DL (32.0-36.0) 32.3 G/DL (32.0-36.0) 34.3 G/DL (32.0-36.0) Red Cell Distribution Width 16.5 % (11.6-14.8) 15.9 % (11.6-14.8) 14.2 % (11.6-14.8) Platelet Count 208 K/UL (150-450) 184 K/UL (150-450) 165 K/UL (150-450) Mean Platelet Volume 6.3 FL (6.5-10.1) 5.4 FL (6.5-10.1) 5.7 FL (6.5-10.1) Neutrophils (%) (Auto) 66.2 % (45.0-75.0) % (45.0-75.0) % (45.0-75.0) Lymphocytes (%) (Auto) 26.1 % (20.0-45.0) % (20.0-45.0) % (20.0-45.0) Monocytes (%) (Auto) 5.0 % (1.0-10.0) % (1.0-10.0) % (1.0-10.0) Eosinophils (%) (Auto) 1.6 % (0.0-3.0) % (0.0-3.0) % (0.0-3.0) Basophils (%) (Auto) 1.0 % (0.0-2.0) % (0.0-2.0) % (0.0-2.0) Sodium Level 144 MMOL/L (136-145) 144 MMOL/L (136-145) 144 MMOL/L (136-145) Potassium Level 5.4 MMOL/L (3.5-5.1) 4.8 MMOL/L (3.5-5.1) 4.9 MMOL/L (3.5-5.1) Chloride Level 116 MMOL/L (98-107) 115 MMOL/L (98-107) 114 MMOL/L (98-107) Carbon Dioxide Level 21 MMOL/L (21-32) 24 MMOL/L (21-32) 24 MMOL/L (21-32) Anion Gap 8 mmol/L (5-15) 6 mmol/L (5-15) 6 mmol/L (5-15) Blood Urea Nitrogen 37 mg/dL (7-18) 30 mg/dL (7-18) 25 mg/dL (7-18) Creatinine 0.8 MG/DL (0.55-1.30) 0.7 MG/DL (0.55-1.30) 0.6 MG/DL (0.55-1.30) Estimat Glomerular Filtration Rate mL/min (>60) mL/min (>60) mL/min (>60) Glucose Level 122 MG/DL (74-106) 111 MG/DL (74-106) 130 MG/DL (74-106) Uric Acid 4.0 MG/DL (2.6-7.2) Calcium Level 9.5 MG/DL (8.5-10.1) 9.6 MG/DL (8.5-10.1) 9.3 MG/DL (8.5-10.1) Phosphorus Level 2.4 MG/DL (2.5-4.9) 3.0 MG/DL (2.5-4.9) 2.2 MG/DL (2.5-4.9) Magnesium Level 1.7 MG/DL (1.8-2.4) 2.0 MG/DL (1.8-2.4) 1.7 MG/DL (1.8-2.4) Total Bilirubin 0.2 MG/DL (0.2-1.0) 0.3 MG/DL (0.2-1.0) 0.3 MG/DL (0.2-1.0) Aspartate Amino Transf (AST/SGOT) 24 U/L (15-37) 18 U/L (15-37) 23 U/L (15-37) Alanine Aminotransferase (ALT/SGPT) 36 U/L (12-78) 29 U/L (12-78) 32 U/L (12-78) Alkaline Phosphatase 274 U/L (46-116) 230 U/L (46-116) 232 U/L (46-116) Total Protein 4.4 G/DL (6.4-8.2) 4.5 G/DL (6.4-8.2) 4.5 G/DL (6.4-8.2) Albumin 1.5 G/DL (3.4-5.0) 2.0 G/DL (3.4-5.0) 1.9 G/DL (3.4-5.0) Globulin 2.9 g/dL 2.5 g/dL 2.6 g/dL Albumin/Globulin Ratio 0.5 (1.0-2.7) 0.8 (1.0-2.7) 0.7 (1.0-2.7) Differential Total Cells Counted 100 Neutrophils % (Manual) 66 % (45-75) Lymphocytes % (Manual) 27 % (20-45) Monocytes % (Manual) 5 % (1-10) Eosinophils % (Manual) 2 % (0-3) Basophils % (Manual) 0 % (0-2) Band Neutrophils 0 % (0-8) Platelet Estimate Adequate Platelet Morphology Normal Anisocytosis 1+ C-Reactive Protein, Quantitative 3.5 mg/dL (0.00-0.90) Pro-B-Type Natriuretic Peptide 2359 pg/mL (0-125) Arterial Blood pH 7.482 (7.350-7.450) Arterial Blood Partial Pressure CO2 25.9 mmHg (35.0-45.0) Arterial Blood Partial Pressure O2 121.1 mmHg (75.0-100.0) Arterial Blood HCO3 18.9 mmol/L (22.0-26.0) Arterial Blood Oxygen Saturation 98.3 % (95-100) Arterial Blood Base Excess -3.9 (-2-2) Silas Test Positive Height (Feet): 5 Height (Inches): 7.00 Weight (Pounds): 122 Objective Gen: Nad Pulm: is vent++ CV: ++ tachy Abd: soft, nt, ++ g tube Ext: 1+ edema noted Bruce Coombs MD May 15, 2019 11:06
--- NOTE | 2019-05-15 11:10 | NUR ---
RESPIRATORY NOTE: ABG drawn by Sruthi TAYLOR , no respiratory distress noted.
--- NOTE | 2019-05-15 12:00 | NUR ---
NURSE NOTES: Patient blood pressure 138/46, HR 83 beats per minute in normal sinus rhythm. Patient remains aphasic. Patient opens eyes and tracks but does not communicate. Patient extubated this morning. Patient now on cool aerosol mask with 30% FiO2. Patient showing no sign of respiratory distress at this time. Will continue to monitor. Gastrostomy tube remains patent, asymptomatic, and running Glucerna 1.2 at 50mL/hr at this time. Rectal tube remains patent, asymptomatic, and draining at this time. Hilario remains patent, asymptomatic, and draining straw yellow urine. All wound dressings dry and intact. Right upper arm PICC line remains patent, asymptomatic, and saline locked at this time. serum Magnesium level is 1.[address] Ho ordered 2g Magnesium sulfate IV. Both bags given. Bed in low position with bed alarm on and call light in reach at this time. Patient repositioned and oral care done at this time.
--- NOTE | 2019-05-15 12:14 | NUR ---
RESPIRATORY NOTE: Per Dr. Lai's order, extubated pt and placed on cool aerosol 30%. Breathing treatment due to wheezing. No respiratory distress noted. Will continue to monitor. MONA Kruger aware.
--- NOTE | 2019-05-15 13:28 | GI Progress Note ---
Assessment/Plan Problems: (1) Septic shock ICD Codes: A41.9 - Sepsis, unspecified organism; R65.21 - Severe sepsis with septic shock SNOMED: 15224180, 9396488 (2) Feeding by G-tube ICD Codes: Z93.1 - Gastrostomy status SNOMED: 950485322, 394831942, 837511421 (3) Diabetes mellitus ICD Codes: E11.9 - Type 2 diabetes mellitus without complications SNOMED: 16737739 (4) Anemia ICD Codes: D64.9 - Anemia, unspecified SNOMED: 136410327 Status: progressing Status Narrative Discussed with Dr. Lau. Assessment/Plan No plans for any GI procedures at this given time. occult blood stool to evaluate for any GI bleed, negative extubated, Monitor H&H, PRN transfusions PPI GTFs Electrolyte correction, increase free water flushes for hypernatremia GT site care daily and as needed We will follow on a daily basis with additional recommendation add erythromycin for elevated residuals, TF tolerated The patient was seen and examined at bedside and all new and available data was reviewed in the patients chart. I agree with the above findings, impression and plan. (Patient seen earlier today. Signature stamp does not reflect patient encounter time.). - Alfredo Lau MD Subjective Subjective limited Objective Last 24 Hour Vital Signs Date Time Temp Pulse Resp B/P (MAP) Pulse Ox O2 Delivery O2 Flow Rate FiO2 05/15/19 13:00 89 26 108/38 (61) 100 05/15/19 12:27 100 Venturi Mask 6.0 30 05/15/19 12:14 Venturi Mask 6.0 30 05/15/19 12:14 85 24 100 Venturi Mask 6.0 30 83 24 100 05/15/19 12:12 138/46 05/15/19 12:00 6.0 30 05/15/19 12:00 99.0 82 15 138/46 (76) 100 05/15/19 12:00 81 05/15/19 12:00 Simple Mask 6.0 05/15/19 11:00 67 15 104/36 (58) 99 05/15/19 10:10 70 19 30 05/15/19 10:00 73 16 111/38 (62) 99 05/15/19 09:41 70 16 30 05/15/19 09:41 100 11/18/19 09:00 70 15 102/45 (64) 100 05/15/19 08:00 98.4 70 14 108/50 (69) 99 05/15/19 08:00 64 05/15/19 08:00 30 05/15/19 08:00 Mechanical Ventilator 05/15/19 07:49 65 14 30 05/15/19 07:00 66 13 94/79 (84) 100 05/15/19 06:00 57 12 104/47 (66) 100 05/15/19 05:10 61 12 30 05/15/19 05:00 63 13 106/51 (69) 100 05/15/19 04:00 30 05/15/19 04:00 64 15 99/39 (59) 100 05/15/19 04:00 Mechanical Ventilator 05/15/19 04:00 65 05/15/19 03:06 57 12 30 05/15/19 03:00 55 12 88/36 (53) 100 05/15/19 02:00 64 14 119/57 (77) 100 05/15/19 01:00 61 14 103/50 (67) 100 05/15/19 00:51 63 13 30 05/15/19 00:00 Mechanical Ventilator 05/15/19 00:00 98.6 63 13 109/45 (66) 100 05/14/19 23:20 58 12 30 05/14/19 23:00 63 14 110/36 (60) 100 05/14/19 22:00 63 13 114/44 (67) 99 05/14/19 21:00 60 13 104/34 (57) 100 05/14/19 21:00 60 12 30 05/14/19 20:00 63 05/14/19 20:00 99.0 63 14 115/39 (64) 99 05/14/19 20:00 Mechanical Ventilator 05/14/19 20:00 30 05/14/19 19:00 67 16 105/61 (76) 100 05/14/19 18:55 64 15 30 05/14/19 18:00 68 16 109/37 (61) 100 05/14/19 17:00 62 13 91/44 (60) 100 05/14/19 16:42 60 14 30 05/14/19 16:00 61 05/14/19 16:00 Mechanical Ventilator 05/14/19 16:00 98.7 61 13 95/58 (70) 98 05/14/19 15:14 70 17 116/35 (62) 100 05/14/19 15:00 61 13 88/66 (73) 99 05/14/19 14:39 58 13 30 05/14/19 14:00 58 13 101/33 (55) 100 Intake and Output 05/14/19 05/15/19 19:00 07:00 Intake Total 500 ml 760 ml Output Total 760 ml 465 ml Balance -260 ml 295 ml Free Water 100 ml 100 ml Tube Feeding 400 ml 600 ml Other 60 ml Output Urine Total 610 ml 465 ml Stool Total 150 ml # Bowel Movements 100 Laboratory Tests Test 05/15/19 04:30 05/15/19 10:48 White Blood Count 6.7 K/UL (4.8-10.8) Red Blood Count 2.61 M/UL (4.20-5.40) L Hemoglobin 7.8 G/DL (12.0-16.0) L Hematocrit 22.8 % (37.0-47.0) L Mean Corpuscular Volume 87 FL (80-99) Mean Corpuscular Hemoglobin 30.0 PG (27.0-31.0) Mean Corpuscular Hemoglobin Concent 34.3 G/DL (32.0-36.0) Red Cell Distribution Width 14.2 % (11.6-14.8) Platelet Count 165 K/UL (150-450) Mean Platelet Volume 5.7 FL (6.5-10.1) L Neutrophils (%) (Auto) % (45.0-75.0) Lymphocytes (%) (Auto) % (20.0-45.0) Monocytes (%) (Auto) % (1.0-10.0) Eosinophils (%) (Auto) % (0.0-3.0) Basophils (%) (Auto) % (0.0-2.0) Sodium Level 144 MMOL/L (136-145) Potassium Level 4.9 MMOL/L (3.5-5.1) Chloride Level 114 MMOL/L (98-107) H Carbon Dioxide Level 24 MMOL/L (21-32) Anion Gap 6 mmol/L (5-15) Blood Urea Nitrogen 25 mg/dL (7-18) H Creatinine 0.6 MG/DL (0.55-1.30) Estimat Glomerular Filtration Rate mL/min (>60) Glucose Level 130 MG/DL (74-106) H Calcium Level 9.3 MG/DL (8.5-10.1) Phosphorus Level 2.2 MG/DL (2.5-4.9) L Magnesium Level 1.7 MG/DL (1.8-2.4) L Total Bilirubin 0.3 MG/DL (0.2-1.0) Aspartate Amino Transf (AST/SGOT) 23 U/L (15-37) Alanine Aminotransferase (ALT/SGPT) 32 U/L (12-78) Alkaline Phosphatase 232 U/L (46-116) H Total Protein 4.5 G/DL (6.4-8.2) L Albumin 1.9 G/DL (3.4-5.0) L Globulin 2.6 g/dL Albumin/Globulin Ratio 0.7 (1.0-2.7) L Arterial Blood pH 7.394 (7.350-7.450) Arterial Blood Partial Pressure CO2 37.2 mmHg (35.0-45.0) Arterial Blood Partial Pressure O2 97.5 mmHg (75.0-100.0) Arterial Blood HCO3 22.2 mmol/L (22.0-26.0) Arterial Blood Oxygen Saturation 96.8 % (95-100) Arterial Blood Base Excess -2.4 (-2-2) L Silas Test Positive Height (Feet): 5 Height (Inches): 7.00 Weight (Pounds): 122 General Appearance: no apparent distress Cardiovascular: normal rate Respiratory/Chest: normal breath sounds, no respiratory distress Abdominal Exam: normal bowel sounds, non tender, soft Extremities: non-tender Bekah Toro TECHNICAL ASSISTANCE CONSULTANT May 15, 2019 13:28
--- NOTE | 2019-05-15 14:30 | NUR ---
NURSE NOTES: Patient VS stable. NO sign of acute distress. Patient remains on cool aerosol at 30% FiO2 with 97% SpO2 and RR 25. Will continue to monitor. Brea Toro NP rounded on the patient. NO new orders received. Patient repositioned at this time. bed in low position with bed alarm on and call light in reach.
--- NOTE | 2019-05-15 16:00 | NUR ---
NURSE NOTES: Patient vital signs stable. Patient remains aphasic post extubation. Patient opens eyes and tracks but does not communicate. Patient remains on cool aerosol mask with 30% FiO2. Patient showing no sign of respiratory distress at this time. Some congestion noted. Patient unable to clear her secretions. Will continue to monitor and deep nasal suction as needed. Gastrostomy tube remains patent, asymptomatic, and running Glucerna 1.2 at 50mL/hr at this time. Rectal tube remains patent, asymptomatic, and draining at this time. Hilario remains patent, asymptomatic, and draining straw yellow urine. All wound dressings dry and intact. Right upper arm PICC line remains patent, asymptomatic, and saline locked at this time. Bed in low position with bed alarm on and call light in reach at this time. Patient repositioned, bed bath done, and oral care done at this time.
--- NOTE | 2019-05-15 16:38 | NUR ---
DISCHARGE PLANNING Discharge order noted Patient has been referred to [facility] Await Acceptance
--- NOTE | 2019-05-15 18:30 | NUR ---
NURSE NOTES: Patient having audible congestion and unable to clear secretions. Requested for respiratory therapist to deep nasal suction her. RT in the room at this time. Will continue to monitor and follow up.
--- NOTE | 2019-05-15 19:29 | NUR ---
HAND-OFF: Report given to MONA Duarte. Patiet VS stable. Endorsed to monitor and follow up.
--- NOTE | 2019-05-15 19:30 | NUR ---
NURSE NOTES: Received pt extubated today, now on 30% aerosol,02 sat>95%, tc02 monitor 23, pt opened eyes to tactile stimulation, but doesnt tracked. SR on the monitor, bp stable afebrile. Pt has sacral stage 3 and some excoriation perinneal area. sacral area has drsg dry and intact . On P200 mattress turned q 2hrs prn with good skin care done.Will continue to monitor . Watch for any resp.distress.
[2019-05-15] MEDS: Dyna-Hex 2% Top Sol 2oz TOPIC SCH (20:04)
--- NOTE | 2019-05-15 20:52 | NUR ---
NURSE NOTES: Pt occasionally heard gargling some secretion- Suctioned orally light yellowish secretions moderate in amt. PM care done. 02 sat remained at 100%. Tc02 30/min.
--- NOTE | 2019-05-15 23:00 | NUR ---
NURSE NOTES: Diuresing well via kwon cath lg amt of yellowish urine. Rectal tube to gravity with brownish stool moderate in amt. Monitor I and o. Monitor lytes.
[2019-05-16] VITALS (24 sets, daily range): BP systolic 116–158; BP diastolic 39–143
--- NOTE | 2019-05-16 01:00 | NUR ---
NURSE NOTES: COURTNEY PICC line drsg was changed aseptically.
--- NOTE | 2019-05-16 03:57 | NUR ---
NURSE NOTES: Complete bed bath with bed chnged was done.
[2019-05-16 04:39] LABS: BASOPHILS % (AUTO) 1.1 % (0.0-2.0); LYMPHOCYTES % (AUTO) 20.1 % (20.0-45.0); MEAN CORPUSCULAR VOLUME 88 FL (80-99); MONOCYTES % (AUTO) 7.9 % (1.0-10.0); PLATELET COUNT 191 K/UL (150-450); RED BLOOD COUNT 3.07 M/UL (4.20-5.40); RED CELL DISTRIBUTION WIDTH 14.3 % (11.6-14.8); WHITE BLOOD COUNT 7.3 K/UL (4.8-10.8)
[2019-05-16 05:01] LABS: ALANINE AMINOTRANSFERASE 32 U/L (12-78); ALBUMIN/GLOBULIN RATIO 0.7 (1.0-2.7); ALKALINE PHOSPHATASE 233 U/L (46-116); ANION GAP 6 mmol/L (5-15); ASPARTATE AMINO TRANSFERASE 25 U/L (15-37); BILIRUBIN,TOTAL 0.3 MG/DL (0.2-1.0); BLOOD UREA NITROGEN 19 mg/dL (7-18); CALCIUM 9.4 MG/DL (8.5-10.1); CARBON DIOXIDE 24 MMOL/L (21-32); CHLORIDE 116 MMOL/L (98-107); CREATININE 0.5 MG/DL (0.55-1.30); PHOSPHORUS 4.2 MG/DL (2.5-4.9); POTASSIUM 4.8 MMOL/L (3.5-5.1); SODIUM 146 MMOL/L (136-145)
[2019-05-16] MEDS: NovoLOG Insulin Flexpen SUBQ SCH ×3 (05:39→18:00)
--- NOTE | 2019-05-16 06:00 | NUR ---
NURSE NOTES: No resp distress noted. needs frequent suctioning.vss.
--- NOTE | 2019-05-16 07:23 | NUR ---
HAND-OFF: Report given to Anyi DUNN.
--- NOTE | 2019-05-16 07:24 | NUR ---
NURSE NOTES: RECEIVED PATIENT FROM Matty ADAMS RN. PATIENT IS LYING IN BED ASLEEP. HOOKED TO [employer]PLICATION ANALYST. HR OF 92. ON COOL AEROSOL AT 8L, FiO2 AT 30%, SATING AT 99%. NO SIGNS OF DISTRESS OF THE MOMENT. SUCTIONED SECRETIONS AND REPOSITIONED. NOTED LARGE AMT OF YELLOWISH/WHITISH THICK SECRETIONS. GT TUBE NOTED, DRY AND INTACT. GTF RUNNING GLUCERNA 1.2 AT 50ML/HR. NOTED RECTAL TUBE CONNECTED TO BAG BY GRAVITY WITH BROWN DISCHARGE. MELARA CONNECTED TO BAG, DRAINING YELLOW URINE. NOTED SKIN ALTERATION. ON P200 MATTRESS. L UA PICC, DRESSING DRY AND INTACT, TKO. CALL LIGHT WITHIN REACH. BED AT LOWEST POSITION. SIDE RAILS UP. WILL CONTINUE TO MONITOR.
[2019-05-16] MEDS: Pantoprazole Inj IV SCH ×2 (08:46→20:58)
[2019-05-16] MEDS: Heparin 5000 units/ml inj SUBQ SCH ×2 (08:48→20:58)
--- NOTE | 2019-05-16 09:05 | NUR ---
RADIOLOGY DEPT.,CHEST X-RAY DONE.-P.DYE
--- NOTE | 2019-05-16 09:15 | Cardiology Progress Note ---
Assessment/Plan Assessment/Plan 1. Acute febrile illness, sepsis. 2. Hypotension. 3. Possible pneumonia/ respiratory failure acute 4. Urinary tract infection? 5. Hypernatremia. 6. Renal insufficiency and failure. 7. Dementia. 8. G-tube placement. 9. anemia 10. thrombocytopenia 11. lactic acidosis 12. hyperglycemia more awake extubate on face mask good sats iv abx plt normal abn trop noted demand related cxr personally reviewed more right sided infiltrate tele sinus pulm toilette echo lv fxn normal watch closely Subjective ROS Limited/Unobtainable: Yes Cardiovascular: Denies: chest pain Respiratory: Denies: shortness of breath Gastrointestinal/Abdominal: Denies: abdominal pain Objective Last 24 Hour Vital Signs Date Time Temp Pulse Resp B/P (MAP) Pulse Ox O2 Delivery O2 Flow Rate FiO2 05/16/19 08:00 Simple Mask 6.0 05/16/19 08:00 99.2 95 25 124/80 (95) 100 05/16/19 07:11 89 18 97 Mechanical Ventilator 8.0 30 05/16/19 07:09 96 Cool Aerosol 8.0 30 05/16/19 07:00 94 25 154/119 (131) 97 05/16/19 06:00 93 24 140/84 (102) 99 05/16/19 05:00 87 24 145/64 (91) 100 05/16/19 04:00 Simple Mask 6.0 05/16/19 04:00 98.2 90 23 148/64 (92) 100 05/16/19 04:00 94 05/16/19 03:00 90 24 144/52 (82) 99 05/16/19 02:00 97 24 137/52 (80) 98 05/16/19 01:23 96 Cool Aerosol 8.0 30 05/16/19 01:00 98 22 119/41 (67) 98 05/16/19 00:00 98.0 97 23 123/48 (73) 98 05/16/19 00:00 82 05/16/19 00:00 Simple Mask 6.0 05/15/19 23:00 92 24 132/56 (81) 98 05/15/19 22:00 92 22 102/32 (55) 100 05/15/19 21:00 76 24 111/43 (65) 100 05/15/19 20:00 79 05/15/19 20:00 98.4 79 24 111/43 (65) 100 05/15/19 20:00 Simple Mask 6.0 05/15/19 19:16 100 Cool Aerosol 8.0 30 05/15/19 19:00 75 16 132/54 (80) 100 05/15/19 18:00 76 29 115/52 (73) 93 05/15/19 17:00 81 27 104/40 (61) 100 05/15/19 16:00 81 05/15/19 16:00 98.9 79 26 120/40 (66) 100 05/15/19 16:00 6.0 30 05/15/19 16:00 Simple Mask 6.0 05/15/19 15:00 82 25 114/42 (66) 100 05/15/19 14:00 81 24 112/53 (72) 99 05/15/19 13:00 89 26 108/38 (61) 100 05/15/19 12:27 100 Venturi Mask 6.0 30 05/15/19 12:14 Venturi Mask 6.0 30 05/15/19 12:14 85 24 100 Venturi Mask 6.0 30 83 24 100 05/15/19 12:12 138/46 05/15/19 12:00 6.0 30 05/15/19 12:00 99.0 82 15 138/46 (76) 100 05/15/19 12:00 81 05/15/19 12:00 Simple Mask 6.0 05/15/19 11:00 67 15 104/36 (58) 99 05/15/19 10:10 70 19 30 05/15/19 10:00 73 16 111/38 (62) 99 05/15/19 09:41 70 16 30 05/15/19 09:41 100 General Appearance: no apparent distress, alert Neck: supple Cardiovascular: normal rate Respiratory/Chest: rhonchi - bilaterally Abdomen: normal bowel sounds, non tender, soft Extremities: no swelling Intake and Output 05/15/19 05/16/19 19:00 07:00 Intake Total 1050.0 ml 700 ml Output Total 640 ml 1100 ml Balance 410.0 ml -400 ml Free Water 60 ml 100 ml IV Total 390.0 ml Tube Feeding 600 ml 600 ml Output Urine Total 640 ml 1050 ml Stool Total 50 ml Laboratory Tests Test 05/15/19 10:48 11/19/19 02:50 Arterial Blood pH 7.394 (7.350-7.450) Arterial Blood Partial Pressure CO2 37.2 mmHg (35.0-45.0) Arterial Blood Partial Pressure O2 97.5 mmHg (75.0-100.0) Arterial Blood HCO3 22.2 mmol/L (22.0-26.0) Arterial Blood Oxygen Saturation 96.8 % (95-100) Arterial Blood Base Excess -2.4 (-2-2) L Silas Test Positive White Blood Count 7.3 K/UL (4.8-10.8) Red Blood Count 3.07 M/UL (4.20-5.40) L Hemoglobin 9.0 G/DL (12.0-16.0) L Hematocrit 27.0 % (37.0-47.0) L Mean Corpuscular Volume 88 FL (80-99) Mean Corpuscular Hemoglobin 29.5 PG (27.0-31.0) Mean Corpuscular Hemoglobin Concent 33.6 G/DL (32.0-36.0) Red Cell Distribution Width 14.3 % (11.6-14.8) Platelet Count 191 K/UL (150-450) Mean Platelet Volume 5.4 FL (6.5-10.1) L Neutrophils (%) (Auto) 70.0 % (45.0-75.0) Lymphocytes (%) (Auto) 20.1 % (20.0-45.0) Monocytes (%) (Auto) 7.9 % (1.0-10.0) Eosinophils (%) (Auto) 1.0 % (0.0-3.0) Basophils (%) (Auto) 1.1 % (0.0-2.0) Sodium Level 146 MMOL/L (136-145) H Potassium Level 4.8 MMOL/L (3.5-5.1) Chloride Level 116 MMOL/L (98-107) H Carbon Dioxide Level 24 MMOL/L (21-32) Anion Gap 6 mmol/L (5-15) Blood Urea Nitrogen 19 mg/dL (7-18) H Creatinine 0.5 MG/DL (0.55-1.30) L Estimat Glomerular Filtration Rate mL/min (>60) Glucose Level 116 MG/DL (74-106) H Calcium Level 9.4 MG/DL (8.5-10.1) Phosphorus Level 4.2 MG/DL (2.5-4.9) Magnesium Level 2.0 MG/DL (1.8-2.4) Total Bilirubin 0.3 MG/DL (0.2-1.0) Aspartate Amino Transf (AST/SGOT) 25 U/L (15-37) Alanine Aminotransferase (ALT/SGPT) 32 U/L (12-78) Alkaline Phosphatase 233 U/L (46-116) H Pro-B-Type Natriuretic Peptide 2267 pg/mL (0-125) H Total Protein 5.0 G/DL (6.4-8.2) L Albumin 2.0 G/DL (3.4-5.0) L Globulin 3.0 g/dL Albumin/Globulin Ratio 0.7 (1.0-2.7) L Objective Current Medications Medications (Trade) Dose Ordered Sig/Vane Route PRN Reason Start Time Stop Time Status Last Admin Dose Admin Acetaminophen (Tylenol) 650 mg Q4H PRN ORAL fever 05/01/19 12:45 05/31/19 12:44 Albuterol/ Ipratropium (Albuterol/ Ipratropium) 3 ml Q4H PRN HHN Shortness of Breath 05/01/19 12:45 05/06/19 12:44 Amikacin Protocol (Amikacin pharmacy to dose) 1 ea DAILY PRN MISC . 05/01/19 12:45 05/31/19 12:44 Amikacin Sulfate 500 mg/Sodium Chloride 112 ml @ 112 mls/hr Q24H IV 05/01/19 18:00 05/08/19 17:59 05/01/19 18:04 Chlorhexidine Gluconate (Shanice-Hex 2%) 1 applic DAILY@2000 TOPIC 05/01/19 20:00 05/31/19 19:59 05/01/19 19:48 Dextrose (Dextrose 50%) 25 ml Q30M PRN IV Hypoglycemia 05/02/19 06:30 06/01/19 06:29 Dextrose (Dextrose 50%) 50 ml Q30M PRN IV Hypoglycemia 05/02/19 06:30 06/01/19 06:29 Ertapenem 0.5 gm/ Sodium Chloride 55 ml @ 110 mls/hr Q24H IV 05/01/19 21:00 05/06/19 20:59 05/01/19 21:15 Heparin Sodium (Porcine) (Heparin 5000 units/ml) 5,000 units EVERY 12 HOURS SUBQ 05/01/19 21:00 05/31/19 20:59 05/01/19 21:17 Insulin Aspart (NovoLOG) EVERY 6 HOURS SUBQ 05/02/19 07:30 06/01/19 07:29 05/02/19 08:42 Lorazepam (Ativan 2mg/ml 1ml) 2 mg Q2H PRN IV For Anxiety 05/01/19 12:45 05/08/19 12:44 05/02/19 11:48 Lorazepam (Ativan) 0.5 mg Q6H PRN ORAL For Anxiety 05/02/19 07:30 05/09/19 07:29 Magnesium Sulfate 100 ml @ 100 mls/hr Q1H IVPB 05/02/19 10:00 05/02/19 13:59 05/02/19 11:03 Morphine Sulfate (Morphine Sulfate) 4 mg Q4H PRN IVP Severe Pain (Pain Scale 7-10) 05/01/19 12:45 05/08/19 12:44 Norepinephrine Bitartrate 4 mg/ Dextrose 254 ml @ 0 mls/hr Q24H IV 05/01/19 12:45 05/31/19 12:44 05/01/19 15:45 Ondansetron HCl (Zofran) 4 mg Q6H PRN IVP Nausea & Vomiting 05/01/19 12:45 05/31/19 12:44 Pantoprazole (Protonix) 40 mg Q12HR IV 05/01/19 21:00 06/01/19 08:59 05/02/19 08:29 Potassium Phosphate 20 mm/ Sodium Chloride 281.6667 ml @ 46.944 m... ONCE ONCE IV 05/02/19 11:00 05/02/19 16:59 05/02/19 11:02 Potassium Chloride 100 ml @ 100 mls/hr Q1HR IVPB 05/02/19 10:00 05/02/19 13:59 05/02/19 11:02 Risperidone (RisperDAL) 0.25 mg QHS PRN GT Agitation 05/02/19 07:30 06/01/19 07:29 Sodium Chloride 1,000 ml @ 75 mls/hr [id number] IV 05/02/19 10:39 06/01/19 10:38 05/02/19 11:02 Vancomycin HCl (Vanco rx to dose) 1 ea DAILY PRN MISC . 05/01/19 12:45 05/31/19 12:44 Martin Sarmiento MD May 16, 2019 09:15
--- NOTE | 2019-05-16 09:45 | NUR ---
NURSE NOTES: SUCTIONED SECRETIONS. REPOSITIONED. TOLERATING TUBE FEEDING. SATING AT 100%. NO SIGNS OF DISTRESS.
--- NOTE | 2019-05-16 10:03 | NUR ---
NURSE NOTES: SEEN AND EXAMINED BY DR ALVA. INFORMED OF URINE OUTPUT AROUND 10-20ML/HR. VSS. WILL CONTINUE TO MONITOR.
--- NOTE | 2019-05-16 10:08 | General Progress Note ---
Assessment/Plan Status: progressing Assessment/Plan: Assessment/Plan Problems: (1) Septic shock ICD Codes: A41.9 - Sepsis, unspecified organism; R65.21 - Severe sepsis with septic shock SNOMED: 68397234, 3752111 (2) Feeding by G-tube ICD Codes: Z93.1 - Gastrostomy status SNOMED: 778646996, 539366310, 803334649 (3) Diabetes mellitus ICD Codes: E11.9 - Type 2 diabetes mellitus without complications SNOMED: 43278677 (4) Anemia ICD Codes: D64.9 - Anemia, unspecified SNOMED: 255078092 Status: unchanged Status Narrative Assessment/Plan No plans for any GI procedures at this given time given the patient's elevated troponin level and hemodynamic instability. occult blood stool to evaluate for any GI bleed, negative Monitor H&H, PRN transfusions PPI GTFs>>> increase rate to 60 ADD WATER FLUSHES Electrolyte correction, increase free water flushes for hypernatremia GT site care daily and as needed We will follow on a daily basis with additional recommendation Subjective ROS Limited/Unobtainable: No Allergies: Coded Allergies: No Known Allergies (Unverified , 05/01/19) Objective Last 24 Hour Vital Signs Date Time Temp Pulse Resp B/P (MAP) Pulse Ox O2 Delivery O2 Flow Rate FiO2 05/16/19 10:00 91 24 116/47 (70) 98 05/16/19 09:00 90 23 133/57 (82) 99 05/16/19 08:00 Simple Mask 6.0 05/16/19 08:00 91 05/16/19 08:00 99.2 95 25 124/80 (95) 100 05/16/19 07:11 89 18 97 Mechanical Ventilator 8.0 30 05/16/19 07:09 96 Cool Aerosol 8.0 30 05/16/19 07:00 94 25 154/119 (131) 97 05/16/19 06:00 93 24 140/84 (102) 99 05/16/19 05:00 87 24 145/64 (91) 100 05/16/19 04:00 Simple Mask 6.0 05/16/19 04:00 98.2 90 23 148/64 (92) 100 05/16/19 04:00 94 05/16/19 03:00 90 24 144/52 (82) 99 05/16/19 02:00 97 24 137/52 (80) 98 05/16/19 01:23 96 Cool Aerosol 8.0 30 05/16/19 01:00 98 22 119/41 (67) 98 05/16/19 00:00 98.0 97 23 123/48 (73) 98 05/16/19 00:00 82 05/16/19 00:00 Simple Mask 6.0 05/15/19 23:00 92 24 132/56 (81) 98 05/15/19 22:00 92 22 102/32 (55) 100 05/15/19 21:00 76 24 111/43 (65) 100 05/15/19 20:00 79 05/15/19 20:00 98.4 79 24 111/43 (65) 100 05/15/19 20:00 Simple Mask 6.0 05/15/19 19:16 100 Cool Aerosol 8.0 30 05/15/19 19:00 75 16 132/54 (80) 100 05/15/19 18:00 76 29 115/52 (73) 93 05/15/19 17:00 81 27 104/40 (61) 100 05/15/19 16:00 81 05/15/19 16:00 98.9 79 26 120/40 (66) 100 05/15/19 16:00 6.0 30 05/15/19 16:00 Simple Mask 6.0 05/15/19 15:00 82 25 114/42 (66) 100 05/15/19 14:00 81 24 112/53 (72) 99 05/15/19 13:00 89 26 108/38 (61) 100 05/15/19 12:27 100 Venturi Mask 6.0 30 05/15/19 12:14 Venturi Mask 6.0 30 05/15/19 12:14 85 24 100 Venturi Mask 6.0 30 83 24 100 05/15/19 12:12 138/46 05/15/19 12:00 6.0 30 05/15/19 12:00 99.0 82 15 138/46 (76) 100 05/15/19 12:00 81 05/15/19 12:00 Simple Mask 6.0 05/15/19 11:00 67 15 104/36 (58) 99 11/18/19 10:10 70 19 30 Intake and Output 05/15/19 05/16/19 19:00 07:00 Intake Total 1050.0 ml 700 ml Output Total 640 ml 1100 ml Balance 410.0 ml -400 ml Free Water 60 ml 100 ml IV Total 390.0 ml Tube Feeding 600 ml 600 ml Output Urine Total 640 ml 1050 ml Stool Total 50 ml Laboratory Tests 05/15/19 10:48: Arterial Blood pH 7.394, Arterial Blood Partial Pressure CO2 37.2, Arterial Blood Partial Pressure O2 97.5, Arterial Blood HCO3 22.2, Arterial Blood Oxygen Saturation 96.8, Arterial Blood Base Excess -2.4L, Silas Test Positive 05/16/19 02:50: White Blood Count 7.3, Red Blood Count 3.07L, Hemoglobin 9.0L, Hematocrit 27.0L , Mean Corpuscular Volume 88, Mean Corpuscular Hemoglobin 29.5, Mean Corpuscular Hemoglobin Concent 33.6, Red Cell Distribution Width 14.3, Platelet Count 191, Mean Platelet Volume 5.4L, Neutrophils (%) (Auto) 70.0, Lymphocytes ( %) (Auto) 20.1, Monocytes (%) (Auto) 7.9, Eosinophils (%) (Auto) 1.0, Basophils (%) (Auto) 1.1, Sodium Level 146H, Potassium Level 4.8, Chloride Level 116H, Carbon Dioxide Level 24, Anion Gap 6, Blood Urea Nitrogen 19H, Creatinine 0.5L, Estimat Glomerular Filtration Rate , Glucose Level 116H, Calcium Level 9.4, Phosphorus Level 4.2, Magnesium Level 2.0, Total Bilirubin 0.3, Aspartate Amino Transf (AST/SGOT) 25, Alanine Aminotransferase (ALT/SGPT) 32, Alkaline Phosphatase 233H, Pro-B-Type Natriuretic Peptide 2267H, Total Protein 5.0L, Albumin 2.0L, Globulin 3.0, Albumin/Globulin Ratio 0.7L Height (Feet): 5 Height (Inches): 7.00 Weight (Pounds): 120 General Appearance: lethargic EENT: normal ENT inspection Neck: supple Cardiovascular: normal rate Respiratory/Chest: decreased breath sounds Abdomen: normal bowel sounds, non tender, soft Extremities: non-tender Alfredo Lau MD May 16, 2019 10:08
--- NOTE | 2019-05-16 10:10 | NUR ---
NURSE NOTES: SPOKE WITH DR OTT WITH NEW ORDERS MADE AND CARRIED OUT. WILL CONTINUE TO MONITOR.
--- NOTE | 2019-05-16 10:16 | NUR ---
NURSE NOTES: SEEN AND EXAMINED BY DR DELONG WITH NEW ORDERS MADE. SPOKE WITH RT RE CPT. NO SIGNS OF DISTRESS.
--- NOTE | 2019-05-16 10:16 | Hematology/Onc Progress Note ---
Assessment/Plan Assessment/Plan # Anemia of chronic disease due to underlying chronic medical issues, multifactorial, in this case sepsis --> Anemia workup has been reviewed, no bleeding --> No evidence of hemolysis is noted, peripheral smear has been reviewed. --> Hgb goal >7. Transfuse prn. --> Epogen or iron at this time is not particularly indicated --> Medications have been reviewed --> low threshold for gi evaluation in case has occult + --> bone marrow biopsy is not indicated given the other more likely causes --> hgb trend 11.5-->7.8-->8.9 --> 9.4-->7.8-->9 # Thrombocytopenia - potential causes multifactorial, evaluate liver and viral etiologies to begin, also could be related to underlying medications patient has received. In this case with septic shock --> Hep panel and HIV ordered - both negative --> US abd to evaluate for cirrhosis and hsm ordered - results pending --> Peripheral smear ordered to evaluate for blasts /schistocytes --> abx and other meds have been reviewed --> ok for ppx if plt >50k w/ either heparin or lovenox --> Transfuse if Plt < 20k and fever, or if Plt < 10k without fever --> plt trend 164-->102-->104-->241-->165-->191 # Hypercalcemia --> started on ivf by renal --> Ca trend as needed --> pamidronate given calcitonin # Septic shock --> erta/aamikacin/vanc per id # Acute kidney injury --> per renal # Acute respiratory failure s/p vent --> per pulm # Dysphagia s/p peg # Decub ulceration --> therahoney as per surg # Schizophrenia # Dvt ppx heparins sq The timing of this note does not necessarily reflect the time of the patient was seen. Greatly appreciate consultation. Subjective Allergies: Coded Allergies: No Known Allergies (Unverified , 05/01/19) Subjective 05/03: remains on vent, counts reviewed with rn, on abx, no bleeding 05/11: icu, awake, nonverbal, failed to wean from vent 05/12: no events noted, overnight, vladimir rn in the am, no bleeding 05/13: remains intubated, labs noted, no bleeding no chills 05/15: remains intubated, cpap trial, dw rn, hgb 7.8, holding off palma 05/16: icu, no prgi procedures per gi, stool ob negative, h/h stable Objective Objective Current Medications Medications (Trade) Dose Ordered Sig/Vane Route PRN Reason Start Time Stop Time Status Last Admin Dose Admin Acetaminophen (Tylenol) 650 mg Q4H PRN NG fever 05/04/19 09:30 05/31/19 12:44 05/04/19 10:00 Albuterol/ Ipratropium (Albuterol/ Ipratropium) 3 ml Q4HRT PRN HHN sob 05/13/19 10:30 05/18/19 10:29 05/15/19 12:14 Calcitonin [place] (Miacalcin) 1 sprays DAILY NASAL 05/04/19 09:00 06/03/19 08:59 05/16/19 09:40 Chlorhexidine Gluconate (Shanice-Hex 2%) 1 applic DAILY@2000 TOPIC 05/01/19 20:00 05/31/19 19:59 05/15/19 20:04 Dextrose (Dextrose 50%) 25 ml Q30M PRN IV Hypoglycemia 05/02/19 06:30 06/01/19 06:29 Dextrose (Dextrose 50%) 50 ml Q30M PRN IV Hypoglycemia 05/02/19 06:30 06/01/19 06:29 Heparin Sodium (Porcine) (Heparin 5000 units/ml) 5,000 units EVERY 12 HOURS SUBQ 05/01/19 21:00 05/31/19 20:59 05/16/19 08:48 Insulin Aspart (NovoLOG) EVERY 6 HOURS SUBQ 05/02/19 07:30 06/01/19 07:29 05/16/19 05:39 Lorazepam (Ativan) 0.25 mg Q6H PRN GT For Anxiety 05/14/19 06:30 05/21/19 06:29 05/14/19 20:38 Midodrine (Pro-Amatine) 5 mg THREE TIMES A DAY NG 05/16/19 13:00 06/04/19 12:59 Norepinephrine Bitartrate 4 mg/ Dextrose 254 ml @ 0 mls/hr Q24H IV 05/01/19 12:45 05/31/19 12:44 05/04/19 18:15 Ondansetron HCl (Zofran) 4 mg Q6H PRN IVP Nausea & Vomiting 05/01/19 12:45 05/31/19 12:44 Pantoprazole (Protonix) 40 mg Q12HR IV 05/01/19 21:00 06/01/19 08:59 05/16/19 08:46 Risperidone (RisperDAL) 0.25 mg QHS PRN GT Agitation 05/02/19 07:30 06/01/19 07:29 05/13/19 22:40 Last 24 Hour Vital Signs Date Time Temp Pulse Resp B/P (MAP) Pulse Ox O2 Delivery O2 Flow Rate FiO2 05/16/19 10:00 91 24 116/47 (70) 98 05/16/19 09:00 90 23 133/57 (82) 99 05/16/19 08:00 Simple Mask 6.0 05/16/19 08:00 91 05/16/19 08:00 99.2 95 25 124/80 (95) 100 05/16/19 07:11 89 18 97 Mechanical Ventilator 8.0 30 05/16/19 07:09 96 Cool Aerosol 8.0 30 05/16/19 07:00 94 25 154/119 (131) 97 05/16/19 06:00 93 24 140/84 (102) 99 05/16/19 05:00 87 24 145/64 (91) 100 05/16/19 04:00 Simple Mask 6.0 05/16/19 04:00 98.2 90 23 148/64 (92) 100 05/16/19 04:00 94 05/16/19 03:00 90 24 144/52 (82) 99 05/16/19 02:00 97 24 137/52 (80) 98 05/16/19 01:23 96 Cool Aerosol 8.0 30 05/16/19 01:00 98 22 119/41 (67) 98 05/16/19 00:00 98.0 97 23 123/48 (73) 98 05/16/19 00:00 82 05/16/19 00:00 Simple Mask 6.0 05/15/19 23:00 92 24 132/56 (81) 98 05/15/19 22:00 92 22 102/32 (55) 100 11/18/19 21:00 76 24 111/43 (65) 100 05/15/19 20:00 79 05/15/19 20:00 98.4 79 24 111/43 (65) 100 05/15/19 20:00 Simple Mask 6.0 05/15/19 19:16 100 Cool Aerosol 8.0 30 05/15/19 19:00 75 16 132/54 (80) 100 05/15/19 18:00 76 29 115/52 (73) 93 05/15/19 17:00 81 27 104/40 (61) 100 05/15/19 16:00 81 05/15/19 16:00 98.9 79 26 120/40 (66) 100 05/15/19 16:00 6.0 30 05/15/19 16:00 Simple Mask 6.0 05/15/19 15:00 82 25 114/42 (66) 100 05/15/19 14:00 81 24 112/53 (72) 99 05/15/19 13:00 89 26 108/38 (61) 100 05/15/19 12:27 100 Venturi Mask 6.0 30 05/15/19 12:14 Venturi Mask 6.0 30 05/15/19 12:14 85 24 100 Venturi Mask 6.0 30 83 24 100 05/15/19 12:12 138/46 05/15/19 12:00 6.0 30 05/15/19 12:00 99.0 82 15 138/46 (76) 100 05/15/19 12:00 81 05/15/19 12:00 Simple Mask 6.0 05/15/19 11:00 67 15 104/36 (58) 99 05/15/19 10:10 70 19 30 05/15/19 10:00 73 16 111/38 (62) 99 05/15/19 09:41 70 16 30 05/15/19 09:41 100 05/15/19 09:00 70 15 102/45 (64) 100 05/15/19 08:00 98.4 70 14 108/50 (69) 99 05/15/19 08:00 64 05/15/19 08:00 30 05/15/19 08:00 Mechanical Ventilator 05/15/19 07:49 65 14 30 05/15/19 07:00 66 13 94/79 (84) 100 05/15/19 06:00 57 12 104/47 (66) 100 05/15/19 05:10 61 12 30 05/15/19 05:00 63 13 106/51 (69) 100 05/15/19 04:00 30 05/15/19 04:00 64 15 99/39 (59) 100 05/15/19 04:00 Mechanical Ventilator 05/15/19 04:00 65 05/15/19 03:06 57 12 30 05/15/19 03:00 55 12 88/36 (53) 100 05/15/19 02:00 64 14 119/57 (77) 100 05/15/19 01:00 61 14 103/50 (67) 100 05/15/19 00:51 63 13 30 05/15/19 00:00 Mechanical Ventilator 05/15/19 00:00 98.6 63 13 109/45 (66) 100 05/14/19 23:20 58 12 30 05/14/19 23:00 63 14 110/36 (60) 100 05/14/19 22:00 63 13 114/44 (67) 99 05/14/19 21:00 60 13 104/34 (57) 100 05/14/19 21:00 60 12 30 05/14/19 20:00 63 05/14/19 20:00 99.0 63 14 115/39 (64) 99 05/14/19 20:00 Mechanical Ventilator 05/14/19 20:00 30 05/14/19 19:00 67 16 105/61 (76) 100 05/14/19 18:55 64 15 30 05/14/19 18:00 68 16 109/37 (61) 100 05/14/19 17:00 62 13 91/44 (60) 100 05/14/19 16:42 60 14 30 05/14/19 16:00 61 05/14/19 16:00 Mechanical Ventilator 05/14/19 16:00 98.7 61 13 95/58 (70) 98 05/14/19 15:14 70 17 116/35 (62) 100 05/14/19 15:00 61 13 88/66 (73) 99 05/14/19 14:39 58 13 30 05/14/19 14:00 58 13 101/33 (55) 100 05/14/19 13:00 59 12 113/41 (65) 100 05/14/19 12:40 30 05/14/19 12:40 55 13 30 05/14/19 12:00 Mechanical Ventilator 05/14/19 12:00 60 05/14/19 12:00 30 05/14/19 12:00 99.2 68 20 113/43 (66) 100 05/14/19 11:00 61 22 91/32 (51) 99 05/14/19 10:42 61 23 30 Intake and Output 05/15/19 05/16/19 19:00 07:00 Intake Total 1050.0 ml 700 ml Output Total 640 ml 1100 ml Balance 410.0 ml -400 ml Free Water 60 ml 100 ml IV Total 390.0 ml Tube Feeding 600 ml 600 ml Output Urine Total 640 ml 1050 ml Stool Total 50 ml Labs Test 05/14/19 04:30 05/14/19 07:55 05/15/19 04:30 05/15/19 10:48 White Blood Count 7.2 K/UL (4.8-10.8) 6.7 K/UL (4.8-10.8) Red Blood Count 2.71 M/UL (4.20-5.40) 2.61 M/UL (4.20-5.40) Hemoglobin 7.8 G/DL (12.0-16.0) 7.8 G/DL (12.0-16.0) Hematocrit 24.3 % (37.0-47.0) 22.8 % (37.0-47.0) Mean Corpuscular Volume 90 FL (80-99) 87 FL (80-99) Mean Corpuscular Hemoglobin 29.0 PG (27.0-31.0) 30.0 PG (27.0-31.0) Mean Corpuscular Hemoglobin Concent 32.3 G/DL (32.0-36.0) 34.3 G/DL (32.0-36.0) Red Cell Distribution Width 15.9 % (11.6-14.8) 14.2 % (11.6-14.8) Platelet Count 184 K/UL (150-450) 165 K/UL (150-450) Mean Platelet Volume 5.4 FL (6.5-10.1) 5.7 FL (6.5-10.1) Neutrophils (%) (Auto) % (45.0-75.0) % (45.0-75.0) Lymphocytes (%) (Auto) % (20.0-45.0) % (20.0-45.0) Monocytes (%) (Auto) % (1.0-10.0) % (1.0-10.0) Eosinophils (%) (Auto) % (0.0-3.0) % (0.0-3.0) Basophils (%) (Auto) % (0.0-2.0) % (0.0-2.0) Differential Total Cells Counted 100 Neutrophils % (Manual) 66 % (45-75) Lymphocytes % (Manual) 27 % (20-45) Monocytes % (Manual) 5 % (1-10) Eosinophils % (Manual) 2 % (0-3) Basophils % (Manual) 0 % (0-2) Band Neutrophils 0 % (0-8) Platelet Estimate Adequate Platelet Morphology Normal Anisocytosis 1+ Sodium Level 144 MMOL/L (136-145) 144 MMOL/L (136-145) Potassium Level 4.8 MMOL/L (3.5-5.1) 4.9 MMOL/L (3.5-5.1) Chloride Level 115 MMOL/L (98-107) 114 MMOL/L (98-107) Carbon Dioxide Level 24 MMOL/L (21-32) 24 MMOL/L (21-32) Anion Gap 6 mmol/L (5-15) 6 mmol/L (5-15) Blood Urea Nitrogen 30 mg/dL (7-18) 25 mg/dL (7-18) Creatinine 0.7 MG/DL (0.55-1.30) 0.6 MG/DL (0.55-1.30) Estimat Glomerular Filtration Rate mL/min (>60) mL/min (>60) Glucose Level 111 MG/DL (74-106) 130 MG/DL (74-106) Calcium Level 9.6 MG/DL (8.5-10.1) 9.3 MG/DL (8.5-10.1) Phosphorus Level 3.0 MG/DL (2.5-4.9) 2.2 MG/DL (2.5-4.9) Magnesium Level 2.0 MG/DL (1.8-2.4) 1.7 MG/DL (1.8-2.4) Total Bilirubin 0.3 MG/DL (0.2-1.0) 0.3 MG/DL (0.2-1.0) Aspartate Amino Transf (AST/SGOT) 18 U/L (15-37) 23 U/L (15-37) Alanine Aminotransferase (ALT/SGPT) 29 U/L (12-78) 32 U/L (12-78) Alkaline Phosphatase 230 U/L (46-116) 232 U/L (46-116) C-Reactive Protein, Quantitative 3.5 mg/dL (0.00-0.90) Pro-B-Type Natriuretic Peptide 2359 pg/mL (0-125) Total Protein 4.5 G/DL (6.4-8.2) 4.5 G/DL (6.4-8.2) Albumin 2.0 G/DL (3.4-5.0) 1.9 G/DL (3.4-5.0) Globulin 2.5 g/dL 2.6 g/dL Albumin/Globulin Ratio 0.8 (1.0-2.7) 0.7 (1.0-2.7) Arterial Blood pH 7.482 (7.350-7.450) 7.394 (7.350-7.450) Arterial Blood Partial Pressure CO2 25.9 mmHg (35.0-45.0) 37.2 mmHg (35.0-45.0) Arterial Blood Partial Pressure O2 121.1 mmHg (75.0-100.0) 97.5 mmHg (75.0-100.0) Arterial Blood HCO3 18.9 mmol/L (22.0-26.0) 22.2 mmol/L (22.0-26.0) Arterial Blood Oxygen Saturation 98.3 % (95-100) 96.8 % (95-100) Arterial Blood Base Excess -3.9 (-2-2) -2.4 (-2-2) Silas Test Positive Positive Test 05/16/19 02:50 White Blood Count 7.3 K/UL (4.8-10.8) Red Blood Count 3.07 M/UL (4.20-5.40) Hemoglobin 9.0 G/DL (12.0-16.0) Hematocrit 27.0 % (37.0-47.0) Mean Corpuscular Volume 88 FL (80-99) Mean Corpuscular Hemoglobin 29.5 PG (27.0-31.0) Mean Corpuscular Hemoglobin Concent 33.6 G/DL (32.0-36.0) Red Cell Distribution Width 14.3 % (11.6-14.8) Platelet Count 191 K/UL (150-450) Mean Platelet Volume 5.4 FL (6.5-10.1) Neutrophils (%) (Auto) 70.0 % (45.0-75.0) Lymphocytes (%) (Auto) 20.1 % (20.0-45.0) Monocytes (%) (Auto) 7.9 % (1.0-10.0) Eosinophils (%) (Auto) 1.0 % (0.0-3.0) Basophils (%) (Auto) 1.1 % (0.0-2.0) Sodium Level 146 MMOL/L (136-145) Potassium Level 4.8 MMOL/L (3.5-5.1) Chloride Level 116 MMOL/L (98-107) Carbon Dioxide Level 24 MMOL/L (21-32) Anion Gap 6 mmol/L (5-15) Blood Urea Nitrogen 19 mg/dL (7-18) Creatinine 0.5 MG/DL (0.55-1.30) Estimat Glomerular Filtration Rate mL/min (>60) Glucose Level 116 MG/DL (74-106) Calcium Level 9.4 MG/DL (8.5-10.1) Phosphorus Level 4.2 MG/DL (2.5-4.9) Magnesium Level 2.0 MG/DL (1.8-2.4) Total Bilirubin 0.3 MG/DL (0.2-1.0) Aspartate Amino Transf (AST/SGOT) 25 U/L (15-37) Alanine Aminotransferase (ALT/SGPT) 32 U/L (12-78) Alkaline Phosphatase 233 U/L (46-116) Pro-B-Type Natriuretic Peptide 2267 pg/mL (0-125) Total Protein 5.0 G/DL (6.4-8.2) Albumin 2.0 G/DL (3.4-5.0) Globulin 3.0 g/dL Albumin/Globulin Ratio 0.7 (1.0-2.7) Height (Feet): 5 Height (Inches): 7.00 Weight (Pounds): 120 Objective Gen: Nad Pulm: is vent++ CV: ++ tachy Abd: soft, nt, ++ g tube Ext: 1+ edema noted Bruce Coombs MD May 16, 2019 10:16
--- NOTE | 2019-05-16 10:18 | Surgery Progress Note ---
Surgery Progress Note Subjective Additional Comments patient seen and examined at bedside she has since been weaned and extubated on supplemental oxygen stable labs stable exam unchanged dressing changes going well improving Objective Last 24 Hour Vital Signs Date Time Temp Pulse Resp B/P (MAP) Pulse Ox O2 Delivery O2 Flow Rate FiO2 05/16/19 10:00 91 24 116/47 (70) 98 05/16/19 09:00 90 23 133/57 (82) 99 05/16/19 08:00 Simple Mask 6.0 05/16/19 08:00 91 05/16/19 08:00 99.2 95 25 124/80 (95) 100 05/16/19 07:11 89 18 97 Mechanical Ventilator 8.0 30 05/16/19 07:09 96 Cool Aerosol 8.0 30 05/16/19 07:00 94 25 154/119 (131) 97 05/16/19 06:00 93 24 140/84 (102) 99 05/16/19 05:00 87 24 145/64 (91) 100 05/16/19 04:00 Simple Mask 6.0 05/16/19 04:00 98.2 90 23 148/64 (92) 100 05/16/19 04:00 94 05/16/19 03:00 90 24 144/52 (82) 99 05/16/19 02:00 97 24 137/52 (80) 98 05/16/19 01:23 96 Cool Aerosol 8.0 30 05/16/19 01:00 98 22 119/41 (67) 98 05/16/19 00:00 98.0 97 23 123/48 (73) 98 05/16/19 00:00 82 05/16/19 00:00 Simple Mask 6.0 05/15/19 23:00 92 24 132/56 (81) 98 05/15/19 22:00 92 22 102/32 (55) 100 05/15/19 21:00 76 24 111/43 (65) 100 05/15/19 20:00 79 05/15/19 20:00 98.4 79 24 111/43 (65) 100 05/15/19 20:00 Simple Mask 6.0 05/15/19 19:16 100 Cool Aerosol 8.0 30 05/15/19 19:00 75 16 132/54 (80) 100 05/15/19 18:00 76 29 115/52 (73) 93 05/15/19 17:00 81 27 104/40 (61) 100 05/15/19 16:00 81 05/15/19 16:00 98.9 79 26 120/40 (66) 100 05/15/19 16:00 6.0 30 05/15/19 16:00 Simple Mask 6.0 05/15/19 15:00 82 25 114/42 (66) 100 05/15/19 14:00 81 24 112/53 (72) 99 05/15/19 13:00 89 26 108/38 (61) 100 05/15/19 12:27 100 Venturi Mask 6.0 30 05/15/19 12:14 Venturi Mask 6.0 30 05/15/19 12:14 85 24 100 Venturi Mask 6.0 30 83 24 100 05/15/19 12:12 138/46 05/15/19 12:00 6.0 30 05/15/19 12:00 99.0 82 15 138/46 (76) 100 05/15/19 12:00 81 05/15/19 12:00 Simple Mask 6.0 05/15/19 11:00 67 15 104/36 (58) 99 I&O Intake and Output 05/15/19 05/16/19 19:00 07:00 Intake Total 1050.0 ml 700 ml Output Total 640 ml 1100 ml Balance 410.0 ml -400 ml Free Water 60 ml 100 ml IV Total 390.0 ml Tube Feeding 600 ml 600 ml Output Urine Total 640 ml 1050 ml Stool Total 50 ml Dressing: saturated Wound: other Drains: other Cardiovascular: RSR Respiratory: decreased breath sounds Abdomen: soft, non-distended Extremities: no cyanosis, other Laboratory Tests Test 05/15/19 10:48 05/16/19 02:50 Arterial Blood pH 7.394 (7.350-7.450) Arterial Blood Partial Pressure CO2 37.2 mmHg (35.0-45.0) Arterial Blood Partial Pressure O2 97.5 mmHg (75.0-100.0) Arterial Blood HCO3 22.2 mmol/L (22.0-26.0) Arterial Blood Oxygen Saturation 96.8 % (95-100) Arterial Blood Base Excess -2.4 (-2-2) L Silas Test Positive White Blood Count 7.3 K/UL (4.8-10.8) Red Blood Count 3.07 M/UL (4.20-5.40) L Hemoglobin 9.0 G/DL (12.0-16.0) L Hematocrit 27.0 % (37.0-47.0) L Mean Corpuscular Volume 88 FL (80-99) Mean Corpuscular Hemoglobin 29.5 PG (27.0-31.0) Mean Corpuscular Hemoglobin Concent 33.6 G/DL (32.0-36.0) Red Cell Distribution Width 14.3 % (11.6-14.8) Platelet Count 191 K/UL (150-450) Mean Platelet Volume 5.4 FL (6.5-10.1) L Neutrophils (%) (Auto) 70.0 % (45.0-75.0) Lymphocytes (%) (Auto) 20.1 % (20.0-45.0) Monocytes (%) (Auto) 7.9 % (1.0-10.0) Eosinophils (%) (Auto) 1.0 % (0.0-3.0) Basophils (%) (Auto) 1.1 % (0.0-2.0) Sodium Level 146 MMOL/L (136-145) H Potassium Level 4.8 MMOL/L (3.5-5.1) Chloride Level 116 MMOL/L (98-107) H Carbon Dioxide Level 24 MMOL/L (21-32) Anion Gap 6 mmol/L (5-15) Blood Urea Nitrogen 19 mg/dL (7-18) H Creatinine 0.5 MG/DL (0.55-1.30) L Estimat Glomerular Filtration Rate mL/min (>60) Glucose Level 116 MG/DL (74-106) H Calcium Level 9.4 MG/DL (8.5-10.1) Phosphorus Level 4.2 MG/DL (2.5-4.9) Magnesium Level 2.0 MG/DL (1.8-2.4) Total Bilirubin 0.3 MG/DL (0.2-1.0) Aspartate Amino Transf (AST/SGOT) 25 U/L (15-37) Alanine Aminotransferase (ALT/SGPT) 32 U/L (12-78) Alkaline Phosphatase 233 U/L (46-116) H Pro-B-Type Natriuretic Peptide 2267 pg/mL (0-125) H Total Protein 5.0 G/DL (6.4-8.2) L Albumin 2.0 G/DL (3.4-5.0) L Globulin 3.0 g/dL Albumin/Globulin Ratio 0.7 (1.0-2.7) L Plan Problems: (1) Sacral decubitus ulcer, stage III Assessment & Plan: Patient presented on admission with multiple pressure injuries noted. Patient seen by team during admission and I was called on to evaluate patient Full Thickness Stage III Pressure injury sacrum. Base of wound 100% necrotic with red margins(L)2.5cm x (W)2.7cm with surrounding maroon and indurated borders (L)7.5cm x (W)8.5cm. Periwound soft and with edema. Maroon and indurated area noted to R buttocks. Non-blanching erythema noted to R trochanteric.(L)6.5cm x (W)7.5cm. Elongated wound noted to medial/posterior R thigh(L)0.6cm x (W)5.2cm. L heel boggy with non-blanching erythema. Non-Blanchable erythema R heel without fluctuance. need to now begin to get her mobilized more to off load pressure since extubated PT/OT Recommendations: Wash wounds daily with NS or soap/water Apply therahoney or hydrogel impregnated gauze to sacral wound, cover with foam dressing daily and prn saturation Will need to monitor for incontinence as she is having loose stools and need diligent care as can worsen wound Apply foam dressing to R hip, change q3 days bilateral heel foam dressings APM/SOILA Mattress overlay. Reposition at least every 2hours or as tolerated. Off-load heels with Pillow. nutritional optimization will follow with recs thank you (2) Malnutrition Assessment & Plan: DAILY ESTIMATED NEEDS: Needs based on Critical care, wounds; 48.6kg 22- 30 kcals/kg 8372-1515 total kcals 1.25-2 g protein/kg 61-97 g total protein 25-30 mL/kg 8265-6909 total fluid mLs NUTRITION DIAGNOSIS: 1) Increased kcal and pro needs r/t wound healing AEB pt adm w/ multiple wounds, including full thickness sacral wounds, refer to WC eval. 2) Swallowing difficulty r/t respiratory status AEB pt is intubated, Peg dep, TF at low rate for elev residuals. CURRENT TF:Glucerna 1.2 @50-> now @20ml/hr ENTERAL NUTRITION RECOMMENDATIONS: VITAL AF 1.2 @ 45mL/hr x 24 hrs to provide 1080mL, 1296kcal, 81g pro, 876mL free H2O With continued elev residuals, rec TF change to VITAL 1.2 w/ goal rate of 45ml/ hr. - Start @15ml/hr until tolerated w/ no to little residuals. Advance 10ml/hr q4-6 hrs to goal rate TOLERATED. - Flush per . HOB over 30 degrees ADDITIONAL RECOMMENDATIONS: 1) Per SNF: 107 lbs, 60 inches 2) When pt is stable, see TF recs above. 3) Wound care: Add TANYA BID + Vit C 250mg BID -> Hold Tanya BID until TF is better tolerated w/ low to no residuals 4) Monitor lytes-> replete as needed 5) With continued elevated blood glucose, rec long acting insulin Monitor BG w/ active TF order (3) Failure to thrive in adult (4) Feeding by G-tube (5) Septic shock Assessment & Plan: labs noted exam as above doing well since extubation supplemental O2 prn nutritional optimization trend labs abx as per ID will follow with recs thank you (6) Dehydration Ralph Roth May 16, 2019 10:18
--- NOTE | 2019-05-16 10:33 | Diagnostic Imaging Report ---
Indication: Shortness of breath Technique: One view of the chest Comparison: 05/15/2019 Findings: Interval removal of previously demonstrated endotracheal tube. Focal infiltrate in the inferior right upper lobe versus intrafissural fluid persists, unchanged. Atelectatic changes and possibly mild consolidative opacities persist at the left lung base. Left arm PICC remains. Impression: Interim endotracheal tube removal. Otherwise little chemical cell changer one day, findings as noted
--- NOTE | 2019-05-16 10:34 | Nephrology Progress Note ---
Assessment/Plan Problem List: (1) Hypercalcemia Assessment: improving (2) Septic shock (3) Acute kidney injury (4) Acute respiratory failure (5) Dehydration (6) Anemia Assessment Acute renal failure Dehydration / HyperNatremia / HyperCalcemia Septic Shock Respiratory failure / COPD NSTEMI DM PEG Schizophrenia Anemia Plan Now ( 05/16) Extubated Pulmonary support K Phos IV , Mag IV as needed Aredia 90 mg IV and Nasal Calcitonin repeat Aredia 05/12 correct lytes prn Lasix trial Midodrine ? weaning vs Trach IV fluid change to 1/2 NS K and Phos and Mag supplement as needed monitor renal parameters and Calcium urine studies anemia au avoid Nephrotoxics Subjective ROS Limited/Unobtainable: No Constitutional: Reports: malaise Objective Objective Last 24 Hour Vital Signs Date Time Temp Pulse Resp B/P (MAP) Pulse Ox O2 Delivery O2 Flow Rate FiO2 05/16/19 10:00 91 24 116/47 (70) 98 05/16/19 09:00 90 23 133/57 (82) 99 05/16/19 08:00 Simple Mask 6.0 05/16/19 08:00 91 05/16/19 08:00 99.2 95 25 124/80 (95) 100 05/16/19 07:11 89 18 97 Mechanical Ventilator 8.0 30 05/16/19 07:09 96 Cool Aerosol 8.0 30 05/16/19 07:00 94 25 154/119 (131) 97 05/16/19 06:00 93 24 140/84 (102) 99 05/16/19 05:00 87 24 145/64 (91) 100 05/16/19 04:00 Simple Mask 6.0 05/16/19 04:00 98.2 90 23 148/64 (92) 100 05/16/19 04:00 94 05/16/19 03:00 90 24 144/52 (82) 99 05/16/19 02:00 97 24 137/52 (80) 98 05/16/19 01:23 96 Cool Aerosol 8.0 30 05/16/19 01:00 98 22 119/41 (67) 98 05/16/19 00:00 98.0 97 23 123/48 (73) 98 05/16/19 00:00 82 05/16/19 00:00 Simple Mask 6.0 05/15/19 23:00 92 24 132/56 (81) 98 05/15/19 22:00 92 22 102/32 (55) 100 05/15/19 21:00 76 24 111/43 (65) 100 05/15/19 20:00 79 05/15/19 20:00 98.4 79 24 111/43 (65) 100 05/15/19 20:00 Simple Mask 6.0 05/15/19 19:16 100 Cool Aerosol 8.0 30 05/15/19 19:00 75 16 132/54 (80) 100 05/15/19 18:00 76 29 115/52 (73) 93 05/15/19 17:00 81 27 104/40 (61) 100 05/15/19 16:00 81 05/15/19 16:00 98.9 79 26 120/40 (66) 100 05/15/19 16:00 6.0 30 05/15/19 16:00 Simple Mask 6.0 05/15/19 15:00 82 25 114/42 (66) 100 05/15/19 14:00 81 24 112/53 (72) 99 05/15/19 13:00 89 26 108/38 (61) 100 05/15/19 12:27 100 Venturi Mask 6.0 30 05/15/19 12:14 Venturi Mask 6.0 30 05/15/19 12:14 85 24 100 Venturi Mask 6.0 30 83 24 100 05/15/19 12:12 138/46 05/15/19 12:00 6.0 30 05/15/19 12:00 99.0 82 15 138/46 (76) 100 05/15/19 12:00 81 05/15/19 12:00 Simple Mask 6.0 05/15/19 11:00 67 15 104/36 (58) 99 Intake and Output 05/15/19 05/16/19 19:00 07:00 Intake Total 1050.0 ml 700 ml Output Total 640 ml 1100 ml Balance 410.0 ml -400 ml Free Water 60 ml 100 ml IV Total 390.0 ml Tube Feeding 600 ml 600 ml Output Urine Total 640 ml 1050 ml Stool Total 50 ml Laboratory Tests 05/15/19 10:48: Arterial Blood pH 7.394, Arterial Blood Partial Pressure CO2 37.2, Arterial Blood Partial Pressure O2 97.5, Arterial Blood HCO3 22.2, Arterial Blood Oxygen Saturation 96.8, Arterial Blood Base Excess -2.4L, Silas Test Positive 05/16/19 02:50: White Blood Count 7.3, Red Blood Count 3.07L, Hemoglobin 9.0L, Hematocrit 27.0L , Mean Corpuscular Volume 88, Mean Corpuscular Hemoglobin 29.5, Mean Corpuscular Hemoglobin Concent 33.6, Red Cell Distribution Width 14.3, Platelet Count 191, Mean Platelet Volume 5.4L, Neutrophils (%) (Auto) 70.0, Lymphocytes ( %) (Auto) 20.1, Monocytes (%) (Auto) 7.9, Eosinophils (%) (Auto) 1.0, Basophils (%) (Auto) 1.1, Sodium Level 146H, Potassium Level 4.8, Chloride Level 116H, Carbon Dioxide Level 24, Anion Gap 6, Blood Urea Nitrogen 19H, Creatinine 0.5L, Estimat Glomerular Filtration Rate , Glucose Level 116H, Calcium Level 9.4, Phosphorus Level 4.2, Magnesium Level 2.0, Total Bilirubin 0.3, Aspartate Amino Transf (AST/SGOT) 25, Alanine Aminotransferase (ALT/SGPT) 32, Alkaline Phosphatase 233H, Pro-B-Type Natriuretic Peptide 2267H, Total Protein 5.0L, Albumin 2.0L, Globulin 3.0, Albumin/Globulin Ratio 0.7L Height (Feet): 5 Height (Inches): 7.00 Weight (Pounds): 120 General Appearance: no apparent distress Cardiovascular: tachycardia Respiratory/Chest: decreased breath sounds Abdomen: distended Objective no change Fox Ho MD May 16, 2019 10:34
--- NOTE | 2019-05-16 10:39 | Pulmonolgy Critical Care Note ---
Critical Care - Asmt/Plan Problems: (1) Acute respiratory failure (2) Septic shock (3) COPD (chronic obstructive pulmonary disease) (4) Hypernatremia (5) Acute kidney injury (6) Hypertension (7) Diabetes mellitus (8) Feeding by G-tube Respiratory: monitor respiratory rate, adjust FIO2, CXR Cardiac: continue pressors, continue to monitor HR/BP Renal: F/U I&O, keep IV fluid Infectious Disease: check cultures Gastrointestinal: continue feedings/current rate Endocrine: monitor blood sugar, continue sliding scale insulin Hematologic: monitor H/H, transfuse if hgb<8.5 Neurologic: PRN Ativan, keep patient comfortable Affect: PRN ativan Prophylaxis: Heparin Notes Reviewed: cardio, renal Discussed with: nurses, consultants, clinical case managersteel manager - Objective Last 24 Hour Vital Signs Date Time Temp Pulse Resp B/P (MAP) Pulse Ox O2 Delivery O2 Flow Rate FiO2 05/16/19 10:00 91 24 116/47 (70) 98 05/16/19 09:00 90 23 133/57 (82) 99 05/16/19 08:00 Simple Mask 6.0 05/16/19 08:00 91 05/16/19 08:00 99.2 95 25 124/80 (95) 100 05/16/19 07:11 89 18 97 Mechanical Ventilator 8.0 30 05/16/19 07:09 96 Cool Aerosol 8.0 30 05/16/19 07:00 94 25 154/119 (131) 97 05/16/19 06:00 93 24 140/84 (102) 99 05/16/19 05:00 87 24 145/64 (91) 100 05/16/19 04:00 Simple Mask 6.0 05/16/19 04:00 98.2 90 23 148/64 (92) 100 05/16/19 04:00 94 05/16/19 03:00 90 24 144/52 (82) 99 05/16/19 02:00 97 24 137/52 (80) 98 05/16/19 01:23 96 Cool Aerosol 8.0 30 05/16/19 01:00 98 22 119/41 (67) 98 05/16/19 00:00 98.0 97 23 123/48 (73) 98 05/16/19 00:00 82 05/16/19 00:00 Simple Mask 6.0 05/15/19 23:00 92 24 132/56 (81) 98 05/15/19 22:00 92 22 102/32 (55) 100 05/15/19 21:00 76 24 111/43 (65) 100 05/15/19 20:00 79 05/15/19 20:00 98.4 79 24 111/43 (65) 100 05/15/19 20:00 Simple Mask 6.0 05/15/19 19:16 100 Cool Aerosol 8.0 30 05/15/19 19:00 75 16 132/54 (80) 100 05/15/19 18:00 76 29 115/52 (73) 93 05/15/19 17:00 81 27 104/40 (61) 100 05/15/19 16:00 81 05/15/19 16:00 98.9 79 26 120/40 (66) 100 05/15/19 16:00 6.0 30 05/15/19 16:00 Simple Mask 6.0 05/15/19 15:00 82 25 114/42 (66) 100 05/15/19 14:00 81 24 112/53 (72) 99 05/15/19 13:00 89 26 108/38 (61) 100 05/15/19 12:27 100 Venturi Mask 6.0 30 05/15/19 12:14 Venturi Mask 6.0 30 05/15/19 12:14 85 24 100 Venturi Mask 6.0 30 83 24 100 05/15/19 12:12 138/46 05/15/19 12:00 6.0 30 05/15/19 12:00 99.0 82 15 138/46 (76) 100 05/15/19 12:00 81 05/15/19 12:00 Simple Mask 6.0 05/15/19 11:00 67 15 104/36 (58) 99 Status: awake, sedated Condition: critical HEENT: atraumatic Lungs: clear Heart: HR/BP stable Abdomen: soft, non-tender, feeding tube Extremities: no C/C/E, edema Accucheck: 111 Critical Care - Subjective ROS Limited/Unobtainable: Yes Interval Events: tolerating extubation on face mask FI02: 30 Vent Support Breath Rate: 12 Vent Support Mode: CPAP Vent Tidal Volume: 500 Sputum Amount: Moderate PEEP: 5.0 PIP: 15 Tube Feeding Amount: 50 I&O: Intake and Output 05/15/19 05/16/19 19:00 07:00 Intake Total 1050.0 ml 700 ml Output Total 640 ml 1100 ml Balance 410.0 ml -400 ml Free Water 60 ml 100 ml IV Total 390.0 ml Tube Feeding 600 ml 600 ml Output Urine Total 640 ml 1050 ml Stool Total 50 ml CXR: no change ET-Tube: 7.5 ET Position: 22 Labs: Laboratory Tests Test 05/15/19 10:48 05/16/19 02:50 Arterial Blood pH 7.394 (7.350-7.450) Arterial Blood Partial Pressure CO2 37.2 mmHg (35.0-45.0) Arterial Blood Partial Pressure O2 97.5 mmHg (75.0-100.0) Arterial Blood HCO3 22.2 mmol/L (22.0-26.0) Arterial Blood Oxygen Saturation 96.8 % (95-100) Arterial Blood Base Excess -2.4 (-2-2) L Silas Test Positive White Blood Count 7.3 K/UL (4.8-10.8) Red Blood Count 3.07 M/UL (4.20-5.40) L Hemoglobin 9.0 G/DL (12.0-16.0) L Hematocrit 27.0 % (37.0-47.0) L Mean Corpuscular Volume 88 FL (80-99) Mean Corpuscular Hemoglobin 29.5 PG (27.0-31.0) Mean Corpuscular Hemoglobin Concent 33.6 G/DL (32.0-36.0) Red Cell Distribution Width 14.3 % (11.6-14.8) Platelet Count 191 K/UL (150-450) Mean Platelet Volume 5.4 FL (6.5-10.1) L Neutrophils (%) (Auto) 70.0 % (45.0-75.0) Lymphocytes (%) (Auto) 20.1 % (20.0-45.0) Monocytes (%) (Auto) 7.9 % (1.0-10.0) Eosinophils (%) (Auto) 1.0 % (0.0-3.0) Basophils (%) (Auto) 1.1 % (0.0-2.0) Sodium Level 146 MMOL/L (136-145) H Potassium Level 4.8 MMOL/L (3.5-5.1) Chloride Level 116 MMOL/L (98-107) H Carbon Dioxide Level 24 MMOL/L (21-32) Anion Gap 6 mmol/L (5-15) Blood Urea Nitrogen 19 mg/dL (7-18) H Creatinine 0.5 MG/DL (0.55-1.30) L Estimat Glomerular Filtration Rate mL/min (>60) Glucose Level 116 MG/DL (74-106) H Calcium Level 9.4 MG/DL (8.5-10.1) Phosphorus Level 4.2 MG/DL (2.5-4.9) Magnesium Level 2.0 MG/DL (1.8-2.4) Total Bilirubin 0.3 MG/DL (0.2-1.0) Aspartate Amino Transf (AST/SGOT) 25 U/L (15-37) Alanine Aminotransferase (ALT/SGPT) 32 U/L (12-78) Alkaline Phosphatase 233 U/L (46-116) H Pro-B-Type Natriuretic Peptide 2267 pg/mL (0-125) H Total Protein 5.0 G/DL (6.4-8.2) L Albumin 2.0 G/DL (3.4-5.0) L Globulin 3.0 g/dL Albumin/Globulin Ratio 0.7 (1.0-2.7) L Yancy Lai MD May 16, 2019 10:39
--- NOTE | 2019-05-16 10:44 | NUR ---
NURSE NOTES: PATIENT PLACED ON FACE MASK SATING AT 100%. WILL CONTINUE TO MONITOR.
[2019-05-16] MEDS: Albuterol/Ipratropium 3ml neb HHN SCH ×3 (10:46→19:21)
--- NOTE | 2019-05-16 11:54 | NUR ---
RD ASSESSMENT & RECOMMENDATIONS SEE CARE ACTIVITY FOR COMPLETE ASSESSMENT DAILY ESTIMATED NEEDS: Needs based on Critical care, wounds; 48.6kg 22- 30 kcals/kg 8267-8171 total kcals 1.25-2 g protein/kg 61-97 g total protein 25-30 mL/kg 6347-6706 total fluid mLs NUTRITION DIAGNOSIS: 1) Increased kcal and pro needs r/t wound healing AEB pt adm w/ multiple wounds, including full thickness sacral wounds, refer to WC eval. 2) Swallowing difficulty r/t respiratory status AEB pt is intubated- now s/p extubation, PEG dep, on GT feeds. CURRENT TF:Glucerna 1.2 @50ml/hr x 24 hrs ENTERAL NUTRITION RECOMMENDATIONS: Glucerna 1.2 @50ml/hr x 24 hrs to provide 1200ml, 1440kcal, 72g prot, 966ml free water - Maintain current TF w/ continued TF tolerance - HOB over 30 degrees - H20 flush of 150ml q 6 hrs W/ consistent diarrhea, rec TF change to elemental TF of Vital AF 1.2 @ 50ml/hr x 24 hrs to provide 1200ml, 1440kcal, 90g prot, 973ml free water ----- ADDITIONAL RECOMMENDATIONS: 1) Per SNF: 107 lbs, 60 inches 2) Monitor for residuals 3) Wound care: Add TANYA BID + Vit C 250mg BID 4) Monitor lytes-> replete as needed 5) Increase water flushes: Na trending up 6) Consider probiotics for diarrhea 7) Monitor HD stability: pressor held since 05/05- now extubated
--- NOTE | 2019-05-16 12:00 | NUR ---
NURSE NOTES: TOLERATING TUBE FEEDING AND NASAL CANNULA.
--- NOTE | 2019-05-16 12:01 | NUR ---
BROILER CHEF OR COOKMANAGER SOURCING SI: RESP FAILURE S/P EXTUBATION T. 99.2 HR 95 RR 25 B/P 124/100 NA 146 BUN 19 BNP 2207 IS: PROTONIX IV HEPARIN SUBC MIDODRINE PO PT/OT EVAL ICU STATUS
--- NOTE | 2019-05-16 12:59 | Infectious Diseases Prog Note ---
Assessment/Plan Assessment/Plan Assessment/Recommendation: Tmax 104.2, SP New leukocytosis after steroid given, SP Lactate 3.4>1.6>2.4>3.3>3.8>1.0 UTI, SP 05/01 UA 10-15 WBC 05/01 UCx: MDR Klebsiella(R-imipenem, gent, cipro, nitrofurantoin, zosyn, bactrim. I-amikacin) PNA, SP 05/01 sputum cx: MRSA, Providencia(S-amikacin, cefepime, ceftazidime, cipro, erta, zosyn), normal resp magdalena 05/01 CXR: Right mainstem intubation. Suggest pulling the tube back about 3 cm. Atelectasis of the left lower lobe. Superimposed pneumonia or pleural effusion is not excluded. CHF suspected. 05/01 CXR: Endotracheal tube is 2 cm above the guille in good position. A left subclavian line is also present in good position of the tip projected over the SVC. Pulmonary edema again demonstrated. There is hazy opacity at the left lung base which is probably a pleural effusion. 05/02 CXR: Over one day, interval improvement of previously demonstrated left- sided pleural fluid and interstitial and airspace edema. Parenchymal disease is unchanged on the right. 05/03 CXR: Stable satisfactory positions of endotracheal tube, left arm PICC. Hazy opacities in the right mid and lower lung are probably unchanged. There is a small amount of hazy opacity at the left lung base persisting as well. The heart is normal in size. Allowing for technical differences, findings are overall unchanged 05/15 CXR: Interval removal of previously demonstrated endotracheal tube. Focal infiltrate in the inferior right upper lobe versus intrafissural fluid persists, unchanged. Atelectatic changes and possibly mild consolidative opacities persist at the left lung base. Left arm PICC remains. r/o bacteremia 05/01 BCx: ng MRSA negative VRE negative CRE negative HTN COPD Schizophrenia DM G tube Parkinson CKD Protein calorie malnutrition Dementia Psychosis Gastritis Functional paraplegia Plan: monitor off antibiotics. pt extubated but lots of secretions and congestion. pt is at high risk for recurrent aspiration pneumonia 05/11 SP Brad and Linezolid #7(#10 of total abx) 05/05 DC Cefepime #1 05/04 SP Colistin #1 05/04 DC Ertapenem, Amikacin, Vancomycin #3 05/01 SP Zosyn #1 monitor temp, CBC, resp status aspiration precaution ETT management skin care oral care C diff if diarrhea persists--appears to have resolved Thank you for this consult. [facility] will continue to follow the patient with you. Subjective Allergies: Coded Allergies: No Known Allergies (Unverified , 05/01/19) Subjective Afebrile. Tmax 100.2 extubated. Staring blankly. Mumbling words. upper airway congestion Objective Vital Signs Last 24 Hour Vital Signs Date Time Temp Pulse Resp B/P (MAP) Pulse Ox O2 Delivery O2 Flow Rate FiO2 05/16/19 12:16 147/57 05/16/19 11:05 Nasal Cannula 3.0 32 05/16/19 11:00 108 30 133/56 (81) 93 05/16/19 10:49 94 22 100 Nasal Cannula 3.0 32 05/16/19 10:49 100 21 100 Nasal Cannula 3.0 32 05/16/19 10:46 98 33 100 Nasal Cannula 3.0 32 93 26 98 05/16/19 10:00 91 24 116/47 (70) 98 05/16/19 09:00 90 23 133/57 (82) 99 05/16/19 08:00 Simple Mask 6.0 05/16/19 08:00 91 05/16/19 08:00 99.2 95 25 124/80 (95) 100 05/16/19 07:11 89 18 97 Mechanical Ventilator 8.0 30 05/16/19 07:09 96 Cool Aerosol 8.0 30 05/16/19 07:00 94 25 154/119 (131) 97 05/16/19 06:00 93 24 140/84 (102) 99 05/16/19 05:00 87 24 145/64 (91) 100 05/16/19 04:00 Simple Mask 6.0 05/16/19 04:00 98.2 90 23 148/64 (92) 100 05/16/19 04:00 94 05/16/19 03:00 90 24 144/52 (82) 99 05/16/19 02:00 97 24 137/52 (80) 98 05/16/19 01:23 96 Cool Aerosol 8.0 30 05/16/19 01:00 98 22 119/41 (67) 98 05/16/19 00:00 98.0 97 23 123/48 (73) 98 05/16/19 00:00 82 05/16/19 00:00 Simple Mask 6.0 05/15/19 23:00 92 24 132/56 (81) 98 05/15/19 22:00 92 22 102/32 (55) 100 05/15/19 21:00 76 24 111/43 (65) 100 05/15/19 20:00 79 05/15/19 20:00 98.4 79 24 111/43 (65) 100 05/15/19 20:00 Simple Mask 6.0 05/15/19 19:16 100 Cool Aerosol 8.0 30 05/15/19 19:00 75 16 132/54 (80) 100 05/15/19 18:00 76 29 115/52 (73) 93 05/15/19 17:00 81 27 104/40 (61) 100 05/15/19 16:00 81 05/15/19 16:00 98.9 79 26 120/40 (66) 100 05/15/19 16:00 6.0 30 05/15/19 16:00 Simple Mask 6.0 05/15/19 15:00 82 25 114/42 (66) 100 05/15/19 14:00 81 24 112/53 (72) 99 05/15/19 13:00 89 26 108/38 (61) 100 Height (Feet): 5 Height (Inches): 7.00 Weight (Pounds): 120 Objective VS: Tmax 104.2 Gen: NAD. twitching HEENT: ETT CV: RRR Resp: RRR. coarse. no wheezes Abd: soft. nondistended. normoactive Bs+ Neuro: not awake Laboratory Tests Test 05/16/19 02:50 White Blood Count 7.3 K/UL (4.8-10.8) Red Blood Count 3.07 M/UL (4.20-5.40) L Hemoglobin 9.0 G/DL (12.0-16.0) L Hematocrit 27.0 % (37.0-47.0) L Mean Corpuscular Volume 88 FL (80-99) Mean Corpuscular Hemoglobin 29.5 PG (27.0-31.0) Mean Corpuscular Hemoglobin Concent 33.6 G/DL (32.0-36.0) Red Cell Distribution Width 14.3 % (11.6-14.8) Platelet Count 191 K/UL (150-450) Mean Platelet Volume 5.4 FL (6.5-10.1) L Neutrophils (%) (Auto) 70.0 % (45.0-75.0) Lymphocytes (%) (Auto) 20.1 % (20.0-45.0) Monocytes (%) (Auto) 7.9 % (1.0-10.0) Eosinophils (%) (Auto) 1.0 % (0.0-3.0) Basophils (%) (Auto) 1.1 % (0.0-2.0) Sodium Level 146 MMOL/L (136-145) H Potassium Level 4.8 MMOL/L (3.5-5.1) Chloride Level 116 MMOL/L (98-107) H Carbon Dioxide Level 24 MMOL/L (21-32) Anion Gap 6 mmol/L (5-15) Blood Urea Nitrogen 19 mg/dL (7-18) H Creatinine 0.5 MG/DL (0.55-1.30) L Estimat Glomerular Filtration Rate mL/min (>60) Glucose Level 116 MG/DL (74-106) H Calcium Level 9.4 MG/DL (8.5-10.1) Phosphorus Level 4.2 MG/DL (2.5-4.9) Magnesium Level 2.0 MG/DL (1.8-2.4) Total Bilirubin 0.3 MG/DL (0.2-1.0) Aspartate Amino Transf (AST/SGOT) 25 U/L (15-37) Alanine Aminotransferase (ALT/SGPT) 32 U/L (12-78) Alkaline Phosphatase 233 U/L (46-116) H Pro-B-Type Natriuretic Peptide 2267 pg/mL (0-125) H Total Protein 5.0 G/DL (6.4-8.2) L Albumin 2.0 G/DL (3.4-5.0) L Globulin 3.0 g/dL Albumin/Globulin Ratio 0.7 (1.0-2.7) L Current Medications Medications (Trade) Dose Ordered Sig/Vane Route PRN Reason Start Time Stop Time Status Last Admin Dose Admin Acetaminophen (Tylenol) 650 mg Q4H PRN NG fever 05/04/19 09:30 05/31/19 12:44 05/04/19 10:00 Albuterol/ Ipratropium (Albuterol/ Ipratropium) 3 ml Q4HRT HHN 05/16/19 11:00 05/18/19 10:29 05/16/19 10:46 Calcitonin [place] (Miacalcin) 1 sprays DAILY NASAL 05/04/19 09:00 06/03/19 08:59 05/16/19 09:40 Chlorhexidine Gluconate (Shanice-Hex 2%) 1 applic DAILY@2000 TOPIC 05/01/19 20:00 05/31/19 19:59 05/15/19 20:04 Dextrose (Dextrose 50%) 25 ml Q30M PRN IV Hypoglycemia 05/02/19 06:30 06/01/19 06:29 Dextrose (Dextrose 50%) 50 ml Q30M PRN IV Hypoglycemia 05/02/19 06:30 06/01/19 06:29 Heparin Sodium (Porcine) (Heparin 5000 units/ml) 5,000 units EVERY 12 HOURS SUBQ 05/01/19 21:00 05/31/19 20:59 05/16/19 08:48 Insulin Aspart (NovoLOG) EVERY 6 HOURS SUBQ 05/02/19 07:30 06/01/19 07:29 05/16/19 12:39 Lorazepam (Ativan) 0.25 mg Q6H PRN GT For Anxiety 05/14/19 06:30 05/21/19 06:29 05/14/19 20:38 Midodrine (Pro-Amatine) 5 mg THREE TIMES A DAY NG 05/16/19 13:00 06/04/19 12:59 Norepinephrine Bitartrate 4 mg/ Dextrose 254 ml @ 0 mls/hr Q24H IV 05/01/19 12:45 05/31/19 12:44 05/04/19 18:15 Ondansetron HCl (Zofran) 4 mg Q6H PRN IVP Nausea & Vomiting 05/01/19 12:45 05/31/19 12:44 Pantoprazole (Protonix) 40 mg Q12HR IV 05/01/19 21:00 06/01/19 08:59 05/16/19 08:46 Risperidone (RisperDAL) 0.25 mg QHS PRN GT Agitation 05/02/19 07:30 06/01/19 07:29 05/13/19 22:40 Jennifer Palm MD May 16, 2019 12:59
[2019-05-16] MEDS: Acetaminophen 650mg/20.3ml NG PRN (13:17)
--- NOTE | 2019-05-16 13:28 | NUR ---
NURSE NOTES: CALLED AND LEFT A MESSAGE TO DR JIMÉNEZ RE TEMP OF 100.2. DUE MEDS GIVEN. WILL CONTINUE TO MONITOR.
--- NOTE | 2019-05-16 13:51 | NUR ---
NURSE NOTES: SEEN AND EXAMINED BY MYRNA PAEZ. ON COOLING MEASURE. WILL CONTINUE TO MONITOR.
--- NOTE | 2019-05-16 14:40 | General Progress Note ---
Assessment/Plan Problem List: (1) Acute respiratory failure ICD Codes: J96.00 - Acute respiratory failure, unspecified whether with hypoxia or hypercapnia SNOMED: 63869386 (2) Septic shock ICD Codes: A41.9 - Sepsis, unspecified organism; R65.21 - Severe sepsis with septic shock SNOMED: 30471076, 1341795 (3) Diabetes mellitus ICD Codes: E11.9 - Type 2 diabetes mellitus without complications SNOMED: 84437561 (4) Hypertension ICD Codes: I10 - Essential (primary) hypertension SNOMED: 20273567 (5) COPD (chronic obstructive pulmonary disease) ICD Codes: J44.9 - Chronic obstructive pulmonary disease, unspecified SNOMED: 08031195 (6) Anemia ICD Codes: D64.9 - Anemia, unspecified SNOMED: 449024346 (7) Schizophrenia ICD Codes: F20.9 - Schizophrenia, unspecified SNOMED: 35078834 Status: unchanged Assessment/Plan: vent abx bp bs control cbc bmp am ltach eval Subjective Constitutional: Reports: weakness Respiratory: Reports: shortness of breath Allergies: Coded Allergies: No Known Allergies (Unverified , 05/01/19) All Systems: reviewed and negative except above Subjective o2 nc in icu Objective Last 24 Hour Vital Signs Date Time Temp Pulse Resp B/P (MAP) Pulse Ox O2 Delivery O2 Flow Rate FiO2 05/16/19 14:32 88 16 98 Nasal Cannula 3.0 32 05/16/19 14:32 91 16 100 Nasal Cannula 3.0 32 05/16/19 14:32 91 26 100 Nasal Cannula 3.0 32 93 28 98 05/16/19 13:47 99.6 05/16/19 13:24 Simple Mask 6.0 05/16/19 13:00 110 21 158/143 (148) 97 05/16/19 12:16 147/57 05/16/19 12:00 Simple Mask 6.0 05/16/19 12:00 100.2 109 32 147/57 (87) 94 05/16/19 11:05 Nasal Cannula 3.0 32 05/16/19 11:00 108 30 133/56 (81) 93 05/16/19 10:49 94 22 100 Nasal Cannula 3.0 32 05/16/19 10:49 100 21 100 Nasal Cannula 3.0 32 05/16/19 10:46 98 33 100 Nasal Cannula 3.0 32 93 26 98 05/16/19 10:00 91 24 116/47 (70) 98 05/16/19 09:00 90 23 133/57 (82) 99 05/16/19 08:00 Simple Mask 6.0 05/16/19 08:00 91 05/16/19 08:00 99.2 95 25 124/80 (95) 100 05/16/19 07:11 89 18 97 Mechanical Ventilator 8.0 30 05/16/19 07:09 96 Cool Aerosol 8.0 30 05/16/19 07:00 94 25 154/119 (131) 97 05/16/19 06:00 93 24 140/84 (102) 99 05/16/19 05:00 87 24 145/64 (91) 100 05/16/19 04:00 Simple Mask 6.0 05/16/19 04:00 98.2 90 23 148/64 (92) 100 05/16/19 04:00 94 05/16/19 03:00 90 24 144/52 (82) 99 05/16/19 02:00 97 24 137/52 (80) 98 05/16/19 01:23 96 Cool Aerosol 8.0 30 05/16/19 01:00 98 22 119/41 (67) 98 05/16/19 00:00 98.0 97 23 123/48 (73) 98 05/16/19 00:00 82 05/16/19 00:00 Simple Mask 6.0 05/15/19 23:00 92 24 132/56 (81) 98 05/15/19 22:00 92 22 102/32 (55) 100 05/15/19 21:00 76 24 111/43 (65) 100 05/15/19 20:00 79 05/15/19 20:00 98.4 79 24 111/43 (65) 100 05/15/19 20:00 Simple Mask 6.0 05/15/19 19:16 100 Cool Aerosol 8.0 30 05/15/19 19:00 75 16 132/54 (80) 100 05/15/19 18:00 76 29 115/52 (73) 93 05/15/19 17:00 81 27 104/40 (61) 100 05/15/19 16:00 81 11/18/19 16:00 98.9 79 26 120/40 (66) 100 05/15/19 16:00 6.0 30 05/15/19 16:00 Simple Mask 6.0 05/15/19 15:00 82 25 114/42 (66) 100 Intake and Output 05/15/19 05/16/19 19:00 07:00 Intake Total 1050.0 ml 700 ml Output Total 640 ml 1100 ml Balance 410.0 ml -400 ml Free Water 60 ml 100 ml IV Total 390.0 ml Tube Feeding 600 ml 600 ml Output Urine Total 640 ml 1050 ml Stool Total 50 ml Laboratory Tests 05/16/19 02:50: White Blood Count 7.3, Red Blood Count 3.07L, Hemoglobin 9.0L, Hematocrit 27.0L , Mean Corpuscular Volume 88, Mean Corpuscular Hemoglobin 29.5, Mean Corpuscular Hemoglobin Concent 33.6, Red Cell Distribution Width 14.3, Platelet Count 191, Mean Platelet Volume 5.4L, Neutrophils (%) (Auto) 70.0, Lymphocytes ( %) (Auto) 20.1, Monocytes (%) (Auto) 7.9, Eosinophils (%) (Auto) 1.0, Basophils (%) (Auto) 1.1, Sodium Level 146H, Potassium Level 4.8, Chloride Level 116H, Carbon Dioxide Level 24, Anion Gap 6, Blood Urea Nitrogen 19H, Creatinine 0.5L, Estimat Glomerular Filtration Rate , Glucose Level 116H, Calcium Level 9.4, Phosphorus Level 4.2, Magnesium Level 2.0, Total Bilirubin 0.3, Aspartate Amino Transf (AST/SGOT) 25, Alanine Aminotransferase (ALT/SGPT) 32, Alkaline Phosphatase 233H, Pro-B-Type Natriuretic Peptide 2267H, Total Protein 5.0L, Albumin 2.0L, Globulin 3.0, Albumin/Globulin Ratio 0.7L Height (Feet): 5 Height (Inches): 7.00 Weight (Pounds): 120 General Appearance: lethargic EENT: normal ENT inspection Neck: normal alignment Cardiovascular: normal peripheral pulses, normal rate, regular rhythm Respiratory/Chest: chest wall non-tender, lungs clear, normal breath sounds Abdomen: normal bowel sounds, non tender, soft Extremities: normal inspection Edema: no edema noted Arm (L), no edema noted Arm (R), no edema noted Leg (L), no edema noted Leg (R), no edema noted Pedal (L), no edema noted Pedal (R), no edema noted Generalized Neurologic: motor weakness Skin: normal pigmentation, warm/dry Cosme Chong DO May 16, 2019 14:40
--- NOTE | 2019-05-16 15:07 | NUR ---
NURSE NOTES: STILL NOTED GARGLING SOUNDS EVEN AFTER SUCTIONING THE PATIENT. SATING AT 97%. NO SIGNS OF DISTRESS OF THE MOMENT.
--- NOTE | 2019-05-16 15:16 | NUR ---
NURSE NOTES: INFORMED DR OTT OF THE REC AND AGREED TO CHANGE TUBE FEEDING. WILL CONTINUE TO MONITOR.
--- NOTE | 2019-05-16 15:56 | NUR ---
ATTORNEY LAWYER NOTES PT ACCEPTED TO [facility] BED [facility]. [facility] TO TRANSPORT PT WITH AN ETA OF 1900. MESSAGE LEFT FOR PUBLIC GUARDIAN WITH ALL CONTACT INFORMATION PROVIDED. [facility] [id number] [id number]
--- NOTE | 2019-05-16 16:37 | NUR ---
NURSE NOTES: CALLED AND LEFT A MESSAGE TO [facility] RE TRANSFER. AWAITING FOR CALL BACK.
--- NOTE | 2019-05-16 16:59 | NUR ---
NURSE NOTES: CALLED AND SPOKE WITH THE CASE MNGR FROM [facility] AND AWAITING FOR CALL BACK.
--- NOTE | 2019-05-16 17:00 | Progress Note ---
DATE: 05/16/2019 SUBJECTIVE: This is a 78-year-old female patient with respiratory failure. She has some confusion, some disorganized thought process, and decline in cognition below baseline. She is in the ICU with regard to altered mental status, confusion, and disorganized thought process. That is why, she does require daily psychiatric consultation. She has altered mental status, confusion, decline in cognition below baseline. That is why, she does require daily psychiatric consultation, mood lability, altered mental status. DIAGNOSIS: Major depressive disorder, moderate, recurrent with psychotic features, rule out dementia with psychosis. PLAN: Plan for this patient, treat her with medication regimen of Risperdal 0.25 mg per G-tube at bedtime p.r.n. anxiety and agitation. continue to be followed by Psychiatry throughout hospital course. psychiatric is followed by Psychiatry throughout hospital course. Chart reviewed. Discussed with staff. Seen and assessed in her room. Kristen Rodgers M.D. DR: SAMANTHA JOB#: [id number] CC:
--- NOTE | 2019-05-16 17:18 | NUR ---
NURSE NOTES: SPOKE WITH ZARA FROM [facility] [phone] FOR THE REPORT. ALL QUESTIONS ANSWERED.
[2019-05-16] MEDS ORDERED: Ascorbic Acid 500mg tab GT SCH (18:00)
--- NOTE | 2019-05-16 18:39 | NUR ---
NURSE NOTES: PATIENT KEPT CLEAN AND DRY. SUCTIONED AND REPOSITIONED PATIENT. STILL NOTED LARGE AMT OF WHITISH/YELLOWISH SECRETION. SATING AT 95%. NO SIGNS OF DISTRESS. WILL CONTINUE TO MONITOR.
--- NOTE | 2019-05-16 19:20 | NUR ---
HAND-OFF: Report given to Luma Berman RN.
--- NOTE | 2019-05-16 19:50 | NUR ---
NURSE NOTES: PATIENT AWOKE, UNABLE TO FOLLOW COMMANDS, RESPIRATION REGULAR, TACHYPNEA ON O2 2 LPM VIA NC, [id number] OVER 99% NOTED, HEART RATE 100'S/MIN ST W/ 1ST DEGREE AVB, NO PAIN OR SOB NOTED, ABDOMEN SOFT, HYPERACTIVE BOWEL SOUND TO 4 QUADRANTS, G TUBE INTACT AND PATENT, CLAMP STATUS, NO N/V NOTED, RECTAL TUBE INTACT, DARK GREENISH BROWN COLOR STOOL DRAINING GRAVITY, F/C INTACT AND PATENT, YELLOW URINE OUTED, PICC LING TO LEFT UPPER ARM, INTACT AND PATENT STATUS, ON P200 BED, LOCKED BED, KEPT HOB 30 DEGREES AND BED ALARM, PROVIDED CALL LIGHT WITHIN REACH, WILL CONTINUE TO MONITOR.
[2019-05-16] MEDS: Dyna-Hex 2% Top Sol 2oz TOPIC SCH (20:03)
--- NOTE | 2019-05-16 20:33 | NUR ---
NURSE NOTES: [facility] here to supervisor picking crew patient at this time with BLS. Notified them that patient will be going to ICU there for monitoring tech will be needed. Ordnance Technician Beena Ignacio present and agreed patient does need [facility]. Spoke with ambulance company and they will send [facility] with in 1-1 1/2 hrs. Ordnance Technician up to date with changes.
--- NOTE | 2019-05-16 22:00 | NUR ---
NURSE NOTES: [facility] ARRIVED FOR OPERATIONS SUPERVISOR 2ND SHIFT DEIRDRE PATIENT, ENDORSED TO LIO GONZALEZ RN AT BEDSIDE.
--- NOTE | 2019-05-16 22:06 | NUR ---
NURSE NOTES: CALLED [facility], [place] , REPORTED TO MONA DALEY.
[2019-05-16] MEDS ORDERED: NS 275ml ONE (22:24)
[2019-05-16] MEDS ORDERED: Sterile Water Irrig 1000ml IRRIG ONE (22:24)
[2019-05-16] MEDS ORDERED: Tubing IV Secondary IV ONE (22:24)
--- NOTE | 2019-05-16 22:25 | NUR ---
INTER-FACILITY TRANSFER: Patient discharged to [facility] via [facility] by [facility].Report given to LIO GONZALEZ RN. Patient discharged,with copy Dr's order and progress note, no belongings.
--- NOTE | 2019-05-17 08:25 | Discharge Summary ---
Discharge Summary Discharge Summary _ DATE OF ADMISSION: 05/01/2019 DATE OF DISCHARGE: 05/16/2019 DISCHARGED BY: Dr. Chong REASON FOR ADMISSION: 78 years old female with past medical history of hypertension, COPD, presented from the [facility] facility due to respiratory distress. Patient was febrile, tachycardic , hypotensive and hypoxic . Patient required emergency oral intubation . Laboratory work-up revealed no leukocytosis , hemoglobin 11.5 , hematocrit 36.4. Platelet count 164. Urinalysis revealed +3 protein, +3 leukocyte esterase , pyuria , many bacteria. Sodium 158, potassium 3.7. BUN 82, creatinine 2.0. Glucose 117. Lactic acid 3.4, repeated 1.6. Stable LFT and lipase Troponin elevated 0.189. ProBNP 2130. Chest x-ray revealed atelectasis of left lower lobe, superimposed pneumonia or pleural effusion was not excluded . ABG done on the ventilator settings was stable. Patient started on nebulizing treatment with bronchodilator. Septic work-up initiated . Patient pancultured and started on empiric antibiotics. Blood pressure did not respond to IV fluids. Patient started on pressors and admitted to ICU for further management. CONSULTANTS: analysis director Dr. Sarmiento pulmonary Dr. Lia ID specialist Dr. Palm GI specialist Dr. Lau trade recruiter Dr. Ho manager assembly/oncologist Dr. Coombs surgery Dr. Roth plastic surgery psychiatrist Dr. Rodgers [facility] COURSE: Patient was admitted to ICU. Patient was on the IV fluids and pressor. Pressor titrated to keep mean arterial blood pressure above 65. Hemodynamic status was closely monitored. Ventilator support and pulmonary toilet provided. Patient was followed-up with chest x-ray and ABG. Ventilator settings adjusted based on ABG results. Marketing Systems Analyst followed. Echocardiogram revealed preserved ejection fraction of 65% with no evidence of wall motion abnormality to the extent visualized. Mild left ventricular hypertrophy. No evidence of pericardial effusion. Right ventricular systolic pressure of 22. Patient was continued on empiric antibiotics as per ID specialist recommendation. Patient was eventually able to be weaned off pressor and started on midodrine. Patient initially did not tolerate weaning process. Patient eventually was extubated on 05/15. Chest x-ray revealed increased interstitial and airspace disease in the right lung. Patient continued to have a lot of secretions and congestion and remained at high risk for recurrent aspiration pneumonia. Supplemental oxygen titrated to keep pulse oximetry above 92%. Meticulous pulmonary toilet provided. Pulse oximetry was stable on oxygen 2 L via nasal cannula. Blood pressure was stable with midodrine. Strict aspiration and reflux precaution maintained. GI specialist followed. Stool for occult blood was negative. No plans for any GI procedure at this time. GI prophylaxis with PPI provided. Tube feeding formula with goal rate and protein supplements provided as per certified registered nurse anesthetist recommendation. G-tube site care provided. Blood culture were negative. Urine culture revealed Klebsiella pneumonia MDR. Sputum culture revealed MRSA and Providencia. Antibiotic regimen optimized as per ID specialist recommendation. Patient had a new leukocytosis after trial of steroids. Also noted elevated lactate up to 3.8, which trended down to 1.0 Leukocytosis resolved , no fevers. Patient completed antibiotics for pneumonia and UTI. ID specialist recommended to monitor patient off antibiotics and watch closely. Correction Officer followed. Renal parameters and electrolytes were closely monitored. Electrolytes corrected as needed, and nephrotoxins were avoided. Renal ultrasound revealed suspected medical renal disease. Nonobstructive stone in the left kidney. Hypercalcemia was treated with Aredia and nasal calcitonin. Hypercalcemia resolved. L Potassium, magnesium, and phosphorus supplemented as needed. Prior to discharge sodium 146. Stable potassium, phosphorus, and magnesium. Calcium 9.4. BUN from 82 down to 19, creatinine from 2 down to 0.5. Wound care for sacral decubitus ulcer stage III, present on admission, provided and per surgeon recommendation. Continue wound care at the facility. Plastic surgeon also evaluated patient for stage III pressure ulcer. Ulcer did not appear to be infected. Plastic surgeon recommended nutritional optimization, wound care, offloading every 2 hours. Hemoglobin and hematocrit were closely monitored with goal to keep hemoglobin above 7. Anemia work-up was consistent with anemia of chronic disease. No evidence of hemolysis. Epogen or iron were not particularly indicated at this time. Prior to discharge hemoglobin 9, hematocrit 27. As mentioned above, stool for occult blood was negative. Patient undergone transfusion of 1 unit of packed red blood cells while in the hospital. Patient at some point had thrombocytopenia. HIV test was nonreactive. Hepatitis panel was negative. Platelet count stabilized and prior to platelet count 191. Psychiatrist seen and closely followed patient. Per psychiatrist , patient had a major depressive disorder , moderate , recurrent with psychotic features. Psychiatric medication regimen was optimized. Supportive care provided. Bowel regimen instituted. Blood sugar was managed with sliding scale of insulin. Hemoglobin A1c 6.4. Patient clinically stabilized but still required acute care. Patient subsequently was transferred to [facility] via [facility]. FINAL DIAGNOSES: Acute hypoxemic respiratory failure requiring intubation, status post extubation Sepsis /due to pneumonia and UTI Septic shock-resolved Klebsiella MDR UTI-s/treatment MRSA, Providencia pneumonia-s/p treatment Acute kidney injury - resolved Dehydration Hypernatremia Hypercalcemia Lactic acidosis History of hypertension COPD Diabetes mellitus Dysphasia, feeding by G-tube Functional quadriplegia Protein calorie malnutrition Anemia of chronic disease Thrombocytopenia Dementia Major depressive disorder, moderate , recurrent with psychotic features. Sacral decubitus ulcer stage III , present on admission DISCHARGE MEDICATIONS: List of medication was sent to the accepting faciltiy DISCHARGE INSTRUCTIONS: Patient was discharged to long-term acute care facility [facility] via [facility]. Sandrita Avila NP May 17, 2019 08:25
== END 2019-05-16 22:25 | disposition short-term general hospital (02) | DRG 870 ==
LOC: EDBD 09:48 → EMR 10:29 → ICU 11:13 → EDBEDREQ 12:21 → ICU 13:14
DX: A41.02 Sepsis due to Methicillin resistant Staphylococcus aureus (principal); L89.153 Pressure ulcer of sacral region, stage 3; R65.21 Severe sepsis with septic shock; I21.4 Non-ST elevation (NSTEMI) myocardial infarction; J96.01 Acute respiratory failure with hypoxia; J15.212 Pneumonia due to Methicillin resistant Staphylococcus aureus; R53.2 Functional quadriplegia; E46 Unspecified protein-calorie malnutrition; Z68.1 Body mass index [BMI] 19.9 or less, adult; E87.0 Hyperosmolality and hypernatremia; N17.9 Acute kidney failure, unspecified; F33.3 Major depressive disorder, recurrent, severe with psychotic symptoms; J44.0 Chronic obstructive pulmonary disease with (acute) lower respiratory infection; N39.0 Urinary tract infection, site not specified; A41.89 Other specified sepsis; E83.52 Hypercalcemia; E86.0 Dehydration; I10 Essential (primary) hypertension; E11.65 Type 2 diabetes mellitus with hyperglycemia; F20.9 Schizophrenia, unspecified; F41.9 Anxiety disorder, unspecified; G20 Parkinson's disease; F02.80 Dementia in other diseases classified elsewhere, unspecified severity, without behavioral disturbance, psychotic disturbance, mood disturbance, and anxiety; Z93.1 Gastrostomy status; K29.70 Gastritis, unspecified, without bleeding; D64.9 Anemia, unspecified; R13.10 Dysphagia, unspecified; R62.7 Adult failure to thrive; D69.6 Thrombocytopenia, unspecified; R19.7 Diarrhea, unspecified
CPT/HCPCS: 31500; 36415; 36600; 71045; 76770; 80048; 80053; 80061; 80202; 81003; 82140; 82248; 82270; 82550; 82607; 82728; 82746; 82803; 82962; 82977; 83036; 83540; 83550; 83605; 83690; 83735; 83880; 83970; 84100; 84300; 84443; 84484; 84550; 85007; 85025; 86140; 86703; 86705; 86709; 86803; 86850; 86900; 86901; 86920; 87040; 87070; 87081; 87086; 87181; 87205; 87340; 89050; 93005; 93306; 94002; 94003; 94640; 94664; 96365; 96368; 96375; 99291; J1815; J2430; J7030; J7620; J8499